=== PATIENT | male | born 1960 | race Caucasian/White ===

== ENCOUNTER 2020-11-03 03:43 | Inpatient (IN) | payer MEDICAID, OTHER ==
[~2020-11-03] VITALS: Ht 185.4 cm; Wt 150.1 kg
[2020-11-03 04:34] LABS: Urine Bacteria NONE SEEN /hpf (None Seen); Urine Blood 2+ /uL (Negative); Urine Specific Gravity 1.012 (1.001-1.035); Urine WBC 3 /hpf (0 - 3)
[2020-11-03] MEDS ORDERED: KETOROLAC TROMETH 60MG/2ML VIAL IM ONE (05:00)
[2020-11-03] MEDS ORDERED: ONDANSETRON HCL 4 MG/2 ML VIAL IV ONE (05:15)
[2020-11-03] MEDS ORDERED: MORPHINE SULFATE INJECTION 2 MG/ML SYRG IV ONE (05:15)
[2020-11-03] MEDS ORDERED: FUROSEMIDE 40 MG/4 ML VIAL IV ONE (06:30)
[2020-11-03 06:56] LABS: Alanine Aminotransferase 45 U/L (16-61); Albumin 1.9 g/dL (3.4-5.0); Aspartate Aminotransferase 63 U/L (15-37); BUN/Creatinine Ratio 10.5; Blood Urea Nitrogen 8 mg/dL (7-18); Calcium 8.8 mg/dL (8.5-10.1); Carbon Dioxide 21 mmol/L (21-32); GFR African American 135 mL/min; GFR Non-African American 112 mL/min; Glucose 105 mg/dL (74-106)
[2020-11-03 07:00] LABS: Alkaline Phosphatase 156 U/L (45-117); Bilirubin, Total 1.6 mg/dL (0.2-1.0); Total Protein 7.3 g/dL (6.4-8.2)
[2020-11-03 07:06] LABS: Sodium 136 mmol/L (136-145)
[2020-11-03 07:07] LABS: Anion Gap 6 (5-15); Chloride 109 mmol/L (98-107); Potassium 4.9 mmol/L (3.5-5.1)
[2020-11-03 08:41] LABS: Basophils # (auto) 0 10 ^3/uL (0-0.2); Basophils % (auto) 0.3 % (0.0-2.0); Eosinophils # (auto) 0.2 10 ^3/uL (0-0.8); Eosinophils % (auto) 4.8 % (0.0-7.0); Hematocrit 39.7 % (41.0-53.0); Hemoglobin 13.4 g/dL (13.5-17.5); Lymphocytes # (auto) 0.9 10 ^3/uL (0.4-5.4); Lymphocytes % (auto) 19.3 % (10.0-50.0); Mean Corpuscular Hemoglobin 33.1 pg (28.0-32.0); Mean Corpuscular Hgb Conc. 33.8 g/dL (32.0-36.0); Mean Corpuscular Volume 97.8 fL (80.0-100.0); Monocytes # (auto) 0.6 10 ^3/uL (0-1.3); Monocytes % (auto) 13.9 % (0.0-12.0); Neutrophils # (auto) 2.9 10 ^3/uL (1.6-8.6); Neutrophils % (auto) 61.7 % (37.0-80.0); Nucleated Red Blood Cells % 0.2 %; Red Blood Cells 4.06 10^6/uL (4.5-5.90); Red Cell Distribution Width 15.3 % (11.8-14.3); White Blood Cell 4.6 10^3/uL (4.4-10.8)
[2020-11-03] MEDS ORDERED: ACETAMINOPHEN 500 MG TAB PO PRN (13:30)
[2020-11-03] MEDS ORDERED: ONDANSETRON HCL 4 MG/2 ML VIAL IV PRN (13:30)
[2020-11-03] MEDS ORDERED: MORPHINE SULFATE INJECTION 2 MG/ML SYRG IV PRN (13:30)
[2020-11-03] MEDS ORDERED: hydrALAZINE HCL 20 MG/ML VL IV PRN (13:30)
[2020-11-03] MEDS ORDERED: NITROGLYCERIN 0.4 MG SL TAB SL PRN (13:30)
[2020-11-03] MEDS: CLINDAMYCIN 300MG IV 50 ML IV SCH ×2 (16:00→22:00)
[2020-11-03] MEDS: MORPHINE SULFATE INJECTION 2 MG/ML SYRG IV PRN (18:51)
[2020-11-03] MEDS: ATORVASTATIN 20 MG TAB PO SCH (22:50)
[2020-11-03] MEDS: METOPROLOL TARTRATE 25 MG TAB PO SCH (22:50)
[2020-11-03] MEDS: ALBUMIN 25% 50 ML IV SCH (23:00)
[2020-11-04 03:00] VITALS: BP 109/67
[2020-11-04] MEDS ORDERED: POM (03:35)
[2020-11-04 05:00] VITALS: BP 109/67
[2020-11-04] MEDS: CLINDAMYCIN 300MG IV 50 ML IV SCH ×3 (05:16→22:21)
[2020-11-04] MEDS: ALBUMIN 25% 50 ML IV SCH ×2 (06:42→14:15)
[2020-11-04] MEDS: HYDROcodone-ACET 5/325MG TAB PO PRN ×2 (08:37→23:06)
[2020-11-04 09:00] VITALS: BP 134/62
[2020-11-04] MEDS: [UNRECOGNIZED DRUG - OTHER] PO SCH (10:50)
[2020-11-04] MEDS: METOPROLOL TARTRATE 25 MG TAB PO SCH ×2 (10:50→22:21)
[2020-11-04] MEDS: FUROSEMIDE 20 MG/2 ML VIAL IV SCH (10:50)
[2020-11-04] MEDS: ASPirin-EC 81 mg tab PO SCH (10:50)
[2020-11-04] MEDS: LISINOPRIL 10 MG TAB PO SCH (10:50)
[2020-11-04 10:53] LABS: Basophils # (auto) 0 10 ^3/uL (0-0.2); Basophils % (auto) 0.4 % (0.0-2.0); Eosinophils # (auto) 0.2 10 ^3/uL (0-0.8); Eosinophils % (auto) 5.4 % (0.0-7.0); Hematocrit 37.8 % (41.0-53.0); Hemoglobin 12.7 g/dL (13.5-17.5); Lymphocytes # (auto) 0.8 10 ^3/uL (0.4-5.4); Lymphocytes % (auto) 24.1 % (10.0-50.0); Mean Corpuscular Hemoglobin 33.2 pg (28.0-32.0); Mean Corpuscular Hgb Conc. 33.6 g/dL (32.0-36.0); Mean Corpuscular Volume 98.9 fL (80.0-100.0); Monocytes # (auto) 0.5 10 ^3/uL (0-1.3); Monocytes % (auto) 15.9 % (0.0-12.0); Neutrophils # (auto) 1.8 10 ^3/uL (1.6-8.6); Neutrophils % (auto) 54.2 % (37.0-80.0); Nucleated Red Blood Cells % 0.1 %; Red Blood Cells 3.82 10^6/uL (4.5-5.90); Red Cell Distribution Width 15.5 % (11.8-14.3); White Blood Cell 3.4 10^3/uL (4.4-10.8)
[2020-11-04 11:11] LABS: Calcium 8.6 mg/dL (8.5-10.1); Potassium 4.6 mmol/L (3.5-5.1)
[2020-11-04 11:12] LABS: BUN/Creatinine Ratio 15.5
[2020-11-04 13:00] VITALS: BP 101/56
[2020-11-04 17:00] VITALS: BP 123/64
[2020-11-04] MEDS: MORPHINE SULFATE INJECTION 2 MG/ML SYRG IV PRN (20:30)
[2020-11-04 22:00] VITALS: BP 127/52
[2020-11-04] MEDS: ATORVASTATIN 20 MG TAB PO SCH (22:20)
[2020-11-04] MEDS: LACTULOSE 20Gm/30ML SOLN PO SCH (23:03)
[2020-11-05] MEDS: HYDROcodone-ACET 5/325MG TAB PO PRN ×2 (04:33→11:04)
[2020-11-05 05:00] VITALS: BP 99/42
[2020-11-05] MEDS: CLINDAMYCIN 300MG IV 50 ML IV SCH (05:03)
[2020-11-05] MEDS: LACTULOSE 20Gm/30ML SOLN PO SCH ×2 (05:03→12:00)
[2020-11-05 09:04] VITALS: BP 98/54
[2020-11-05] MEDS: [UNRECOGNIZED DRUG - OTHER] PO SCH (10:00)
[2020-11-05] MEDS: METOPROLOL TARTRATE 25 MG TAB PO SCH (10:00)
[2020-11-05] MEDS: LISINOPRIL 10 MG TAB PO SCH (10:00)
[2020-11-05] MEDS: ASPirin-EC 81 mg tab PO SCH (11:04)
[2020-11-05] MEDS: FUROSEMIDE 20 MG/2 ML VIAL IV SCH (11:04)
[2020-11-05 12:11] VITALS: BP 98/54
== END 2020-11-05 13:36 | disposition home or self-care (01) ==
LOC: ER 03:43 → TELE 13:25 → TELE-WESTW 11-04 03:00
PROVIDERS: ADMIT Nurse Practitioner Acute Care; ATTEND Family Medicine
PROC: 05HC33Z Insertion of Infusion Device into Left Basilic Vein, Percutaneous Approach (ICD-10-PCS; principal; 2020-11-03)
PROC: B54NZZA Ultrasonography of Left Upper Extremity Veins, Guidance (ICD-10-PCS; 2020-11-03)
DX: K74.60 Unspecified cirrhosis of liver (principal); K72.10 Chronic hepatic failure without coma; L03.115 Cellulitis of right lower limb; E72.20 Disorder of urea cycle metabolism, unspecified; R18.8 Other ascites; E88.09 Other disorders of plasma-protein metabolism, not elsewhere classified; L03.116 Cellulitis of left lower limb; B19.20 Unspecified viral hepatitis C without hepatic coma; E66.01 Morbid (severe) obesity due to excess calories; N39.0 Urinary tract infection, site not specified; I10 Essential (primary) hypertension; F17.210 Nicotine dependence, cigarettes, uncomplicated; Z20.822 Contact with and (suspected) exposure to COVID-19; R31.29 Other microscopic hematuria; Z68.41 Body mass index [BMI] 40.0-44.9, adult; Z88.0 Allergy status to penicillin
CPT/HCPCS: 36415; 71045; 76700; 80048; 80053; 81001; 82140; 83880; 84484; 85025; 85379; 86141; 87086; 87426; 93005; 93306; 93970; 96374; 96375; 96376; G0378; J1885; J2405; J3490

== ENCOUNTER 2021-09-19 12:59 | Inpatient (IN) | payer MEDICAID ==
[~2021-09-19] VITALS: Ht 185.4 cm; Wt 137.0 kg
[~2021-09-19 12:59] MED LIST: POM
[2021-09-19] MEDS ORDERED: SODIUM CHLORIDE 0.9% 1,000 ML IV ONE ×2 (13:30)
[2021-09-19] MEDS ORDERED: cefTRIAXone 1GM/50ML D5W 50 ML IV ONE (13:30)
[2021-09-19] MEDS ORDERED: AZITHROMYCIN 500MG/ 250ML 250 ML IV ONE (13:30)
[2021-09-19 13:47] LABS: Basophils # (auto) 0 10 ^3/uL (0-0.2); Eosinophils # (auto) 0 10 ^3/uL (0-0.8); Hemoglobin 13.4 g/dL (13.5-17.5); Lymphocytes # (auto) 0.2 10 ^3/uL (0.4-5.4); Monocytes # (auto) 0.4 10 ^3/uL (0-1.3)
[2021-09-19 13:49] LABS: Basophils % (auto) 0.1 % (0.0-2.0); Eosinophils % (auto) 0.7 % (0.0-7.0); Hematocrit 39.7 % (41.0-53.0); Lymphocytes % (auto) 2.7 % (10.0-50.0); Mean Corpuscular Hemoglobin 32.7 pg (28.0-32.0); Mean Corpuscular Hgb Conc. 33.9 g/dL (32.0-36.0); Mean Corpuscular Volume 96.4 fL (80.0-100.0); Monocytes % (auto) 7.5 % (0.0-12.0); Nucleated Red Blood Cells % 0.2 %; Red Blood Cells 4.12 10^6/uL (4.5-5.90); Red Cell Distribution Width 16.1 % (11.8-14.3); White Blood Cell 5.7 10^3/uL (4.4-10.8)
[2021-09-19] MEDS ORDERED: ACETAMINOPHEN 325 MG TAB PO ONE (14:00)
[2021-09-19 14:25] LABS: BUN/Creatinine Ratio 21.1; Potassium 4.2 mmol/L (3.5-5.1)
[2021-09-19 14:28] LABS: Lactic Acid w/Reflex 4.7 mmol/L (0.4-2.0)
[2021-09-19 14:37] LABS: Bilirubin, Total 4.7 mg/dL (0.2-1.0); Total Protein 5.9 g/dL (6.4-8.2)
[2021-09-19] MEDS ORDERED: ENOXAPARIN SOD 120 MG/0.8 ML SYRINGE SC ONE (15:15)
[2021-09-19] MEDS ORDERED: LIDOCAINE VISCOUS 2% 15ML UD MT ONE (15:15)
[2021-09-19] MEDS ORDERED: LIDOCAINE HCL 2% TOP JELLY 5ML TOP ONE (15:45)
[2021-09-19 16:36] LABS: Urine Amorphous Crystal FEW /hpf (None Seen); Urine Bacteria NONE SEEN /hpf (None Seen); Urine Blood 2+ /uL (Negative); Urine Specific Gravity 1.023 (1.001-1.035); Urine WBC 13 /hpf (0 - 3)
[2021-09-19] MEDS ORDERED: ALBUMIN 25% 100 ML IV ONE (17:15)
[2021-09-19] MEDS ORDERED: methylPREDNISolone SOD SUCC 125 MG/2 ML VL IV ONE (17:15)
[2021-09-19] MEDS: NOREPINEPHRINE 8 MG/250ML KIT 250 ML IV SCH (17:15)
[2021-09-19] MEDS ORDERED: FUROSEMIDE 40 MG/4 ML VIAL IV ONE (17:15)
[2021-09-19] MEDS ORDERED: ALBUTEROL SULF 2.5 MG/0.5ML(0.5%) NEB SOLN NEB PRN (17:30)
[2021-09-19] MEDS ORDERED: ACETAMINOPHEN 325 MG TAB PO PRN (17:30)
[2021-09-19] MEDS ORDERED: NITROGLYCERIN 0.4 MG SL TAB SL PRN (17:30)
[2021-09-19] MEDS ORDERED: MORPHINE SULFATE INJ 2 MG/ml SYRG IV PRN (17:30)
[2021-09-19 18:32] LABS: Cholesterol 72 mg/dL (< 200)
[2021-09-19 18:35] LABS: HDL Cholesterol 12 mg/dL (40-59); LDL Cholesterol 26 mg/dL (< 100); Triglycerides 148 mg/dL (< 150)
[2021-09-19] MEDS ORDERED: IOHEXOL 350 MG/ML 100ML IJ ONE (20:06)
[2021-09-19] MEDS: HYDROcodone-ACET 5/325MG TAB PO PRN (20:56)
[2021-09-19] MEDS ORDERED: VANCOMYCIN PER PHARMACY 0 MG IV SCH (22:45)
[2021-09-19] MEDS ORDERED: VANCOMYCIN 1GM/250ML 250 ML IV ONE (23:00)
[2021-09-20] VITALS (37 sets, daily range): BP systolic 83–138; BP diastolic 40–94
[2021-09-20] MEDS: HYDROcodone-ACET 5/325MG TAB PO PRN ×3 (03:18→20:58)
[2021-09-20] MEDS ORDERED: dilTIAZem HCL 50 MG/10 ML VIAL IV ONE (05:43)
[2021-09-20] MEDS ORDERED: dilTIAZem 25 MG/5 ML VIAL IV ONE ×2 (05:45→13:00)
[2021-09-20 06:06] LABS: Hemoglobin 13.1 g/dL (13.5-17.5); Mean Corpuscular Hemoglobin 33.2 pg (28.0-32.0); Red Blood Cells 3.94 10^6/uL (4.5-5.90); White Blood Cell 4.8 10^3/uL (4.4-10.8)
[2021-09-20 06:09] LABS: Hematocrit 38.1 % (41.0-53.0); Mean Corpuscular Hgb Conc. 34.3 g/dL (32.0-36.0); Mean Corpuscular Volume 96.6 fL (80.0-100.0); Red Cell Distribution Width 16.1 % (11.8-14.3)
[2021-09-20 06:26] LABS: Potassium 4.5 mmol/L (3.5-5.1)
[2021-09-20 06:31] LABS: Basophils % (manual) 0 (0.0-2.0); Blast Cells 0; Metamyelocytes % 0; Myelocytes % 0; Promyelocytes % 0; Reactive Lymphocytes 0
[2021-09-20 06:39] LABS: Albumin 2.1 g/dL (3.4-5.0); BUN/Creatinine Ratio 22.5; Calcium 8.3 mg/dL (8.5-10.1); Total Protein 5.9 g/dL (6.4-8.2)
[2021-09-20 07:19] LABS: Band Neutrophils % (manual) 73; Eosinophils % (manual) 1 (0-7); Lymphocytes % (manual) 8 (10.0-50.0); Monocytes % (manual) 13 (0-12)
[2021-09-20] MEDS: cefTRIAXone 1GM/50ML D5W 50 ML IV SCH (09:10)
[2021-09-20] MEDS: NICOTINE 7MG/24HR TOPICAL PATCH TD SCH (10:00)
[2021-09-20] MEDS: AZITHROMYCIN 500MG/ 250ML 250 ML IV SCH (10:47)
[2021-09-20] MEDS: HYDROCORTISONE SOD SUCC 100 MG/2ML INJ VIAL IV SCH ×2 (15:25→20:58)
[2021-09-20] MEDS: VANCOMYCIN 1GM/250ML 250 ML IV SCH (15:26)
[2021-09-20] MEDS: NOREPINEPHRINE 8 MG/250ML KIT 250 ML IV SCH (19:00)
[2021-09-20] MEDS: CARVEDILOL 3.125 MG TAB PO SCH (20:59)
[2021-09-21] VITALS (29 sets, daily range): BP systolic 71–126; BP diastolic 42–82
[2021-09-21 04:40] LABS: BUN/Creatinine Ratio 33.6; Calcium 8.2 mg/dL (8.5-10.1); Potassium 5.1 mmol/L (3.5-5.1)
[2021-09-21 04:43] LABS: Hematocrit 41.5 % (41.0-53.0); Hemoglobin 13.8 g/dL (13.5-17.5); Mean Corpuscular Hemoglobin 32.5 pg (28.0-32.0); Mean Corpuscular Hgb Conc. 33.3 g/dL (32.0-36.0); Mean Corpuscular Volume 97.8 fL (80.0-100.0); Red Blood Cells 4.25 10^6/uL (4.5-5.90); Red Cell Distribution Width 16.2 % (11.8-14.3); White Blood Cell 4.7 10^3/uL (4.4-10.8)
[2021-09-21] MEDS: HYDROCORTISONE SOD SUCC 100 MG/2ML INJ VIAL IV SCH ×3 (05:39→22:26)
[2021-09-21] MEDS: VANCOMYCIN 1GM/250ML 250 ML IV SCH ×2 (06:09→23:00)
[2021-09-21 06:34] LABS: Band Neutrophils % (manual) 22; Basophils % (manual) 0 (0.0-2.0); Blast Cells 0; Eosinophils % (manual) 0 (0-7); Lymphocytes % (manual) 15 (10.0-50.0); Metamyelocytes % 0; Monocytes % (manual) 12 (0-12); Myelocytes % 0; Promyelocytes % 0; Reactive Lymphocytes 0
[2021-09-21] MEDS: NICOTINE 7MG/24HR TOPICAL PATCH TD SCH (10:00)
[2021-09-21] MEDS: AZITHROMYCIN 500MG/ 250ML 250 ML IV SCH (10:13)
[2021-09-21] MEDS: cefTRIAXone 1GM/50ML D5W 50 ML IV SCH (10:14)
[2021-09-21] MEDS: CARVEDILOL 3.125 MG TAB PO SCH ×2 (10:14→22:00)
[2021-09-21] MEDS: HYDROcodone-ACET 5/325MG TAB PO PRN ×2 (11:19→19:34)
[2021-09-21] MEDS: NOREPINEPHRINE 8 MG/250ML KIT 250 ML IV SCH (17:15)
[2021-09-21] MEDS: FUROSEMIDE 40 MG/4 ML VIAL IV SCH (17:49)
[2021-09-22] VITALS (21 sets, daily range): BP systolic 89–158; BP diastolic 42–83
[2021-09-22] MEDS: HYDROcodone-ACET 5/325MG TAB PO PRN ×4 (02:48→23:21)
[2021-09-22] MEDS: FUROSEMIDE 40 MG/4 ML VIAL IV SCH ×2 (06:21→18:13)
[2021-09-22] MEDS: HYDROCORTISONE SOD SUCC 100 MG/2ML INJ VIAL IV SCH ×3 (06:21→21:33)
[2021-09-22] MEDS: cefTRIAXone 1GM/50ML D5W 50 ML IV SCH (08:37)
[2021-09-22] MEDS: CARVEDILOL 3.125 MG TAB PO SCH ×2 (08:55→21:34)
[2021-09-22] MEDS: AZITHROMYCIN 500MG/ 250ML 250 ML IV SCH (09:37)
[2021-09-22] MEDS: VANCOMYCIN 1GM/250ML 250 ML IV SCH ×2 (12:00→23:18)
[2021-09-23 04:56] VITALS: BP 104/58
[2021-09-23] MEDS: HYDROCORTISONE SOD SUCC 100 MG/2ML INJ VIAL IV SCH ×3 (05:52→21:16)
[2021-09-23] MEDS: FUROSEMIDE 40 MG/4 ML VIAL IV SCH ×2 (05:52→18:00)
[2021-09-23] MEDS: HYDROcodone-ACET 5/325MG TAB PO PRN ×3 (05:53→21:17)
[2021-09-23] MEDS: cefTRIAXone 1GM/50ML D5W 50 ML IV SCH (08:33)
[2021-09-23 09:00] VITALS: BP 101/65
[2021-09-23] MEDS: AZITHROMYCIN 500MG/ 250ML 250 ML IV SCH (09:31)
[2021-09-23 09:32] VITALS: BP 101/65
[2021-09-23] MEDS: CARVEDILOL 3.125 MG TAB PO SCH ×2 (09:34→21:20)
[2021-09-23 13:00] VITALS: BP 95/53
[2021-09-23] MEDS: VANCOMYCIN 1GM/250ML 250 ML IV SCH ×2 (14:02→14:12)
[2021-09-23 17:23] VITALS: BP 95/42
[2021-09-23 22:00] VITALS: BP 104/62
[2021-09-24] MEDS: VANCOMYCIN 1GM/250ML 250 ML IV SCH ×3 (00:27→20:20)
[2021-09-24 05:00] VITALS: BP 108/61
[2021-09-24 05:18] LABS: Hematocrit 44.9 % (41.0-53.0); Hemoglobin 14.8 g/dL (13.5-17.5); Mean Corpuscular Hemoglobin 31.6 pg (28.0-32.0); Mean Corpuscular Hgb Conc. 32.9 g/dL (32.0-36.0); Mean Corpuscular Volume 96.1 fL (80.0-100.0); Red Blood Cells 4.67 10^6/uL (4.5-5.90); Red Cell Distribution Width 15.4 % (11.8-14.3); White Blood Cell 19.1 10^3/uL (4.4-10.8)
[2021-09-24 05:29] LABS: Basophils % (manual) 0 (0.0-2.0); Blast Cells 0; Calcium 8.2 mg/dL (8.5-10.1); Myelocytes % 0; Potassium 4.6 mmol/L (3.5-5.1); Promyelocytes % 0; Reactive Lymphocytes 0
[2021-09-24] MEDS: FUROSEMIDE 40 MG/4 ML VIAL IV SCH ×2 (06:43→17:40)
[2021-09-24] MEDS: HYDROCORTISONE SOD SUCC 100 MG/2ML INJ VIAL IV SCH ×3 (06:43→21:43)
[2021-09-24] MEDS: HYDROcodone-ACET 5/325MG TAB PO PRN ×4 (06:44→20:21)
[2021-09-24] MEDS: cefTRIAXone 1GM/50ML D5W 50 ML IV SCH (08:20)
[2021-09-24 09:00] VITALS: BP 113/59
[2021-09-24] MEDS: AMIODARONE HCL 200 MG TAB PO SCH (10:00)
[2021-09-24] MEDS: CARVEDILOL 3.125 MG TAB PO SCH ×2 (10:00→21:44)
[2021-09-24] MEDS: AZITHROMYCIN 500MG/ 250ML 250 ML IV SCH (12:04)
[2021-09-24 12:13] LABS: Band Neutrophils % (manual) 12; Lymphocytes % (manual) 7 (10.0-50.0); Monocytes % (manual) 8 (0-12)
[2021-09-24 13:00] VITALS: BP 121/65
[2021-09-24] MEDS ORDERED: IOHEXOL 300 MG/ML 100ML BOTTLE IJ ONE (17:12)
[2021-09-24 17:24] VITALS: BP 128/72
[2021-09-24 22:00] VITALS: BP 113/66
[2021-09-25] MEDS: HYDROcodone-ACET 5/325MG TAB PO PRN ×2 (02:13→08:31)
[2021-09-25] MEDS: VANCOMYCIN 1GM/250ML 250 ML IV SCH ×2 (05:49→17:18)
[2021-09-25] MEDS: HYDROCORTISONE SOD SUCC 100 MG/2ML INJ VIAL IV SCH ×3 (05:49→22:39)
[2021-09-25] MEDS: FUROSEMIDE 40 MG/4 ML VIAL IV SCH ×2 (05:50→18:49)
[2021-09-25 06:01] VITALS: BP 139/79
[2021-09-25 07:35] LABS: Albumin 1.6 g/dL (3.4-5.0); BUN/Creatinine Ratio 31.7; Calcium 7.8 mg/dL (8.5-10.1); Phosphorus 2.7 mg/dL (2.5-4.90); Potassium 4.3 mmol/L (3.5-5.1)
[2021-09-25] MEDS: cefTRIAXone 1GM/50ML D5W 50 ML IV SCH (08:24)
[2021-09-25] MEDS: AMIODARONE HCL 200 MG TAB PO SCH (08:38)
[2021-09-25] MEDS: CARVEDILOL 3.125 MG TAB PO SCH ×2 (08:39→22:44)
[2021-09-25 09:00] VITALS: BP 128/64
[2021-09-25] MEDS ORDERED: DEXTROSE (50%) 50ML SYRG IV PRN (10:00)
[2021-09-25] MEDS: InsuLIN REG 1unit/0.01ml Soln (100units/ml) SC SCH ×3 (10:28→23:11)
[2021-09-25] MEDS: AZITHROMYCIN 500MG/ 250ML 250 ML IV SCH (10:29)
[2021-09-25] MEDS ORDERED: PENICILLIN G POTASSIUM 1,000 UNITS in SODIUM CHL 0.9% 0.1 ML ID ONE ×4 (11:00)
[2021-09-25] MEDS ORDERED: PENICILLOYL POLYLYSINE 0.25 ML INJ SCRATCHTES ONE (11:00)
[2021-09-25] MEDS ORDERED: PENICILLIN G POTASSIUM 1,000 UNITS in SODIUM CHL 0.9% 0.1 ML SCRATCHTES ONE (11:00)
[2021-09-25] MEDS ORDERED: SODIUM CHLOR 0.9% PF (SALINE LOCK) 10ML VIAL/SYR ID ONE (11:00)
[2021-09-25] MEDS ORDERED: SODIUM CHLOR 0.9% PF (SALINE LOCK) 10ML VIAL/SYR SCRATCHTES ONE (11:00)
[2021-09-25] MEDS ORDERED: HISTAMINE PHOS 1mg/ml 5ML SCRATCH TEST SCRATCHTES ONE (11:00)
[2021-09-25] MEDS ORDERED: PENICILLOYL POLYLYSINE 0.25 ML INJ ID ONE ×2 (11:00)
[2021-09-25] MEDS ORDERED: InsuLIN REG 1unit/0.01ml Soln (100units/ml) SC SCH ×2 (11:30→22:00)
[2021-09-25 12:15] LABS: Hematocrit 44.7 % (41.0-53.0); Hemoglobin 14.5 g/dL (13.5-17.5); Mean Corpuscular Hemoglobin 31.6 pg (28.0-32.0); Mean Corpuscular Hgb Conc. 32.5 g/dL (32.0-36.0); Mean Corpuscular Volume 97.5 fL (80.0-100.0); Red Blood Cells 4.59 10^6/uL (4.5-5.90); Red Cell Distribution Width 16.1 % (11.8-14.3); White Blood Cell 14.4 10^3/uL (4.4-10.8)
[2021-09-25 12:17] LABS: Blast Cells 0; Metamyelocytes % 0; Myelocytes % 0; Promyelocytes % 0; Reactive Lymphocytes 0
[2021-09-25 12:44] LABS: Band Neutrophils % (manual) 1; Basophils % (manual) 1 (0.0-2.0); Eosinophils % (manual) 1 (0-7); Lymphocytes % (manual) 3 (10.0-50.0); Monocytes % (manual) 9 (0-12)
[2021-09-25 13:00] VITALS: BP 114/65
[2021-09-25] MEDS: HYDROcodone-ACET 10/325MG TAB PO PRN ×2 (15:02→22:46)
[2021-09-25 17:00] VITALS: BP 135/72
[2021-09-25] MEDS: ACCU-CHEK COMFORT CURVE STRIP VI SCH ×3 (17:13→22:00)
[2021-09-25 22:00] VITALS: BP 135/76
[2021-09-26] MEDS: VANCOMYCIN 1GM/250ML 250 ML IV SCH ×3 (02:33→21:49)
[2021-09-26 05:00] VITALS: BP 134/75
[2021-09-26] MEDS: HYDROCORTISONE SOD SUCC 100 MG/2ML INJ VIAL IV SCH ×3 (05:10→21:44)
[2021-09-26] MEDS: HYDROcodone-ACET 10/325MG TAB PO PRN ×3 (05:10→18:09)
[2021-09-26] MEDS: FUROSEMIDE 40 MG/4 ML VIAL IV SCH ×2 (05:10→18:06)
[2021-09-26] MEDS: InsuLIN REG 1unit/0.01ml Soln (100units/ml) SC SCH ×4 (06:15→22:07)
[2021-09-26] MEDS: ACCU-CHEK COMFORT CURVE STRIP VI SCH ×4 (06:16→22:11)
[2021-09-26 06:26] LABS: Basophils # (auto) 0 10 ^3/uL (0-0.2); Basophils % (auto) 0.2 % (0.0-2.0); Eosinophils # (auto) 0 10 ^3/uL (0-0.8); Eosinophils % (auto) 0.1 % (0.0-7.0); Hematocrit 41.8 % (41.0-53.0); Hemoglobin 14.1 g/dL (13.5-17.5); Lymphocytes # (auto) 0.7 10 ^3/uL (0.4-5.4); Mean Corpuscular Hemoglobin 33.5 pg (28.0-32.0); Mean Corpuscular Hgb Conc. 33.8 g/dL (32.0-36.0); Monocytes # (auto) 0.9 10 ^3/uL (0-1.3); Monocytes % (auto) 6.2 % (0.0-12.0); Neutrophils # (auto) 12.8 10 ^3/uL (1.6-8.6); Neutrophils % (auto) 88.5 % (37.0-80.0); Nucleated Red Blood Cells % 0.1 %; Red Blood Cells 4.22 10^6/uL (4.5-5.90); Red Cell Distribution Width 15.6 % (11.8-14.3); White Blood Cell 14.4 10^3/uL (4.4-10.8)
[2021-09-26 06:41] LABS: Calcium 7.9 mg/dL (8.5-10.1); Potassium 4.1 mmol/L (3.5-5.1)
[2021-09-26 06:46] LABS: BUN/Creatinine Ratio 33.3; Magnesium 2.4 mg/dL (1.6-2.6)
[2021-09-26 09:00] VITALS: BP 134/92
[2021-09-26] MEDS: CARVEDILOL 3.125 MG TAB PO SCH ×2 (10:01→21:55)
[2021-09-26] MEDS: AMIODARONE HCL 200 MG TAB PO SCH (10:01)
[2021-09-26 13:00] VITALS: BP 120/60
[2021-09-26 15:48] LABS: INR 1.3 (0.9-1.15); Partial Thromboplastin Time 29.7 sec (24.6-33.4)
[2021-09-26 17:00] VITALS: BP 129/99
[2021-09-26 22:00] VITALS: BP 123/87
[2021-09-26] MEDS: INSULIN LANTUS (GLARGINE) 1 /0.01ml (100units/ml) SC SCH (22:09)
[2021-09-27] MEDS: HYDROcodone-ACET 10/325MG TAB PO PRN ×3 (00:19→16:00)
[2021-09-27 05:00] VITALS: BP 140/75
[2021-09-27] MEDS: FUROSEMIDE 40 MG/4 ML VIAL IV SCH ×2 (05:56→16:50)
[2021-09-27] MEDS: HYDROCORTISONE SOD SUCC 100 MG/2ML INJ VIAL IV SCH ×2 (06:00→16:51)
[2021-09-27] MEDS: InsuLIN REG 1unit/0.01ml Soln (100units/ml) SC SCH ×4 (06:15→22:21)
[2021-09-27] MEDS: INSULIN LANTUS (GLARGINE) 1 /0.01ml (100units/ml) SC SCH ×2 (06:16→22:21)
[2021-09-27] MEDS: ACCU-CHEK COMFORT CURVE STRIP VI SCH ×4 (06:16→22:21)
[2021-09-27] MEDS: VANCOMYCIN 1GM/250ML 250 ML IV SCH ×2 (07:50→16:51)
[2021-09-27] MEDS: CARVEDILOL 3.125 MG TAB PO SCH (08:44)
[2021-09-27] MEDS: AMIODARONE HCL 200 MG TAB PO SCH (08:44)
[2021-09-27 08:48] VITALS: BP 128/77
[2021-09-27] MEDS ORDERED: INSULIN LANTUS (GLARGINE) 1 /0.01ml (100units/ml) SC ONE (11:30)
[2021-09-27 13:08] VITALS: BP 126/67
[2021-09-27 22:00] VITALS: BP 129/70
[2021-09-28] MEDS: HYDROcodone-ACET 5/325MG TAB PO PRN (01:08)
[2021-09-28] MEDS: VANCOMYCIN 1GM/250ML 250 ML IV SCH ×2 (03:57→13:56)
[2021-09-28 05:00] VITALS: BP 113/77
[2021-09-28] MEDS: HYDROCORTISONE SOD SUCC 100 MG/2ML INJ VIAL IV SCH (05:45)
[2021-09-28] MEDS: FUROSEMIDE 40 MG/4 ML VIAL IV SCH ×2 (05:47→17:20)
[2021-09-28] MEDS: ACCU-CHEK COMFORT CURVE STRIP VI SCH ×4 (06:36→22:11)
[2021-09-28] MEDS: InsuLIN REG 1unit/0.01ml Soln (100units/ml) SC SCH ×4 (06:39→22:10)
[2021-09-28 09:00] VITALS: BP 138/87
[2021-09-28] MEDS: AMIODARONE HCL 200 MG TAB PO SCH (09:49)
[2021-09-28] MEDS: HYDROcodone-ACET 10/325MG TAB PO PRN ×2 (09:50→17:21)
[2021-09-28] MEDS: INSULIN LANTUS (GLARGINE) 1 /0.01ml (100units/ml) SC SCH ×2 (10:52→22:11)
[2021-09-28 13:00] VITALS: BP 134/70
[2021-09-28 16:47] VITALS: BP 131/80
[2021-09-28 22:00] VITALS: BP 108/60
[2021-09-28] MEDS: SENNA 8.6 MG TAB PO SCH (22:09)
[2021-09-29] MEDS: VANCOMYCIN 1GM/250ML 250 ML IV SCH ×3 (00:37→20:50)
[2021-09-29] MEDS: HYDROcodone-ACET 10/325MG TAB PO PRN ×3 (00:42→16:50)
[2021-09-29 04:39] VITALS: BP 144/69
[2021-09-29 05:15] LABS: Basophils # (auto) 0.1 10 ^3/uL (0-0.2); Basophils % (auto) 0.3 % (0.0-2.0); Eosinophils # (auto) 0.2 10 ^3/uL (0-0.8); Eosinophils % (auto) 1.4 % (0.0-7.0); Hematocrit 47.9 % (41.0-53.0); Lymphocytes # (auto) 1.4 10 ^3/uL (0.4-5.4); Lymphocytes % (auto) 8.2 % (10.0-50.0); Mean Corpuscular Hemoglobin 32.4 pg (28.0-32.0); Mean Corpuscular Hgb Conc. 33.4 g/dL (32.0-36.0); Mean Corpuscular Volume 96.8 fL (80.0-100.0); Monocytes # (auto) 1.5 10 ^3/uL (0-1.3); Monocytes % (auto) 9.1 % (0.0-12.0); Neutrophils # (auto) 13.5 10 ^3/uL (1.6-8.6); Red Blood Cells 4.95 10^6/uL (4.5-5.90); Red Cell Distribution Width 15.8 % (11.8-14.3); White Blood Cell 16.7 10^3/uL (4.4-10.8)
[2021-09-29] MEDS: FUROSEMIDE 40 MG/4 ML VIAL IV SCH ×2 (05:26→16:38)
[2021-09-29 05:34] LABS: BUN/Creatinine Ratio 33.7; Calcium 8.2 mg/dL (8.5-10.1); Potassium 3.3 mmol/L (3.5-5.1)
[2021-09-29] MEDS: ACCU-CHEK COMFORT CURVE STRIP VI SCH ×4 (06:50→22:02)
[2021-09-29] MEDS: InsuLIN REG 1unit/0.01ml Soln (100units/ml) SC SCH ×4 (06:50→22:04)
[2021-09-29 09:23] VITALS: BP 117/63
[2021-09-29] MEDS: SENNA 8.6 MG TAB PO SCH ×2 (09:27→22:02)
[2021-09-29] MEDS: AMIODARONE HCL 200 MG TAB PO SCH (09:27)
[2021-09-29] MEDS: HYDROCORTISONE SOD SUCC 100 MG/2ML INJ VIAL IV SCH (09:27)
[2021-09-29] MEDS: HYDROcodone-ACET 5/325MG TAB PO PRN ×2 (11:11→22:03)
[2021-09-29] MEDS: INSULIN LANTUS (GLARGINE) 1 /0.01ml (100units/ml) SC SCH ×2 (11:17→22:05)
[2021-09-29 12:18] VITALS: BP 141/72
[2021-09-29 17:11] VITALS: BP 126/69
[2021-09-29 22:00] VITALS: BP 119/60
[2021-09-30] MEDS: HYDROcodone-ACET 10/325MG TAB PO PRN ×4 (01:39→21:29)
[2021-09-30 05:00] VITALS: BP 119/67
[2021-09-30] MEDS: VANCOMYCIN 1GM/250ML 250 ML IV SCH ×2 (05:52→18:12)
[2021-09-30] MEDS: FUROSEMIDE 40 MG/4 ML VIAL IV SCH (05:52)
[2021-09-30] MEDS: ACCU-CHEK COMFORT CURVE STRIP VI SCH ×4 (06:14→22:08)
[2021-09-30] MEDS: InsuLIN REG 1unit/0.01ml Soln (100units/ml) SC SCH ×4 (06:16→21:47)
[2021-09-30 08:20] VITALS: BP 132/73
[2021-09-30 08:55] VITALS: BP 132/73
[2021-09-30] MEDS: AMIODARONE HCL 200 MG TAB PO SCH (09:26)
[2021-09-30] MEDS: SENNA 8.6 MG TAB PO SCH ×2 (09:26→21:29)
[2021-09-30] MEDS: HYDROCORTISONE SOD SUCC 100 MG/2ML INJ VIAL IV SCH (09:26)
[2021-09-30] MEDS: INSULIN LANTUS (GLARGINE) 1 /0.01ml (100units/ml) SC SCH ×2 (09:30→21:47)
[2021-09-30 13:21] VITALS: BP 135/76
[2021-09-30 17:07] VITALS: BP 122/65
[2021-09-30] MEDS: Pro-Stat SF 30ml Vanilla PO SCH (18:13)
[2021-09-30 22:00] VITALS: BP 144/77
[2021-10-01] MEDS: HYDROcodone-ACET 10/325MG TAB PO PRN ×3 (03:38→21:25)
[2021-10-01] MEDS: VANCOMYCIN 1GM/250ML 250 ML IV SCH ×3 (03:44→21:24)
[2021-10-01 05:00] VITALS: BP 109/50
[2021-10-01] MEDS: InsuLIN REG 1unit/0.01ml Soln (100units/ml) SC SCH ×4 (05:57→21:34)
[2021-10-01] MEDS: ACCU-CHEK COMFORT CURVE STRIP VI SCH ×4 (05:58→21:25)
[2021-10-01] MEDS: Pro-Stat SF 30ml Vanilla PO SCH ×2 (08:27→18:31)
[2021-10-01 08:37] LABS: BUN/Creatinine Ratio 35.9; Calcium 8.1 mg/dL (8.5-10.1); Potassium 3.8 mmol/L (3.5-5.1)
[2021-10-01 08:47] LABS: Basophils # (auto) 0 10 ^3/uL (0-0.2); Basophils % (auto) 0.2 % (0.0-2.0); Eosinophils # (auto) 0.2 10 ^3/uL (0-0.8); Hematocrit 43.9 % (41.0-53.0); Hemoglobin 14.5 g/dL (13.5-17.5); Lymphocytes # (auto) 1.6 10 ^3/uL (0.4-5.4); Lymphocytes % (auto) 13.4 % (10.0-50.0); Mean Corpuscular Hemoglobin 32.6 pg (28.0-32.0); Mean Corpuscular Hgb Conc. 33.1 g/dL (32.0-36.0); Mean Corpuscular Volume 98.5 fL (80.0-100.0); Monocytes # (auto) 1.5 10 ^3/uL (0-1.3); Monocytes % (auto) 11.9 % (0.0-12.0); Neutrophils # (auto) 8.9 10 ^3/uL (1.6-8.6); Neutrophils % (auto) 72.5 % (37.0-80.0); Nucleated Red Blood Cells % 0.1 %; Red Blood Cells 4.45 10^6/uL (4.5-5.90); Red Cell Distribution Width 16.5 % (11.8-14.3); White Blood Cell 12.2 10^3/uL (4.4-10.8)
[2021-10-01 09:00] VITALS: BP 121/67
[2021-10-01] MEDS: AMIODARONE HCL 200 MG TAB PO SCH (09:28)
[2021-10-01] MEDS: SENNA 8.6 MG TAB PO SCH ×2 (09:29→21:25)
[2021-10-01] MEDS: HYDROCORTISONE SOD SUCC 100 MG/2ML INJ VIAL IV SCH (09:29)
[2021-10-01] MEDS: FUROSEMIDE 40 MG/4 ML VIAL IV SCH (09:30)
[2021-10-01] MEDS: INSULIN LANTUS (GLARGINE) 1 /0.01ml (100units/ml) SC SCH ×2 (09:32→21:34)
[2021-10-01 12:58] VITALS: BP 120/78
[2021-10-01 16:45] VITALS: BP 131/68
[2021-10-01 22:00] VITALS: BP 125/73
[2021-10-01 22:10] VITALS: BP 122/70
[2021-10-02] MEDS: HYDROcodone-ACET 10/325MG TAB PO PRN ×2 (05:17→18:57)
[2021-10-02] MEDS: InsuLIN REG 1unit/0.01ml Soln (100units/ml) SC SCH ×4 (06:05→22:24)
[2021-10-02] MEDS: ACCU-CHEK COMFORT CURVE STRIP VI SCH ×4 (06:35→22:13)
[2021-10-02] MEDS: VANCOMYCIN 1GM/250ML 250 ML IV SCH ×2 (08:29→18:33)
[2021-10-02] MEDS: Pro-Stat SF 30ml Vanilla PO SCH ×2 (08:29→18:33)
[2021-10-02 09:00] VITALS: BP 120/74
[2021-10-02] MEDS: FUROSEMIDE 40 MG/4 ML VIAL IV SCH (10:28)
[2021-10-02] MEDS: AMIODARONE HCL 200 MG TAB PO SCH (10:29)
[2021-10-02] MEDS: SENNA 8.6 MG TAB PO SCH ×2 (10:29→22:12)
[2021-10-02] MEDS: HYDROCORTISONE SOD SUCC 100 MG/2ML INJ VIAL IV SCH (10:29)
[2021-10-02] MEDS: INSULIN LANTUS (GLARGINE) 1 /0.01ml (100units/ml) SC SCH ×2 (10:31→22:26)
[2021-10-02 13:00] VITALS: BP 124/74
[2021-10-02 14:05] LABS: INR 1.22 (0.9-1.15); Partial Thromboplastin Time 29.7 sec (24.6-33.4)
[2021-10-02 16:44] VITALS: BP 123/71
[2021-10-02] MEDS ORDERED: LIDOCAINE 1% (LOCAL ANESTH.) PF 5ml SDV ID ONE (18:15)
[2021-10-02] MEDS: SODIUM CHLOR 0.9% PF (SALINE LOCK) 10ML VIAL/SYR IV SCH (22:12)
[2021-10-02 22:52] VITALS: BP 115/63
[2021-10-03] MEDS: VANCOMYCIN 1GM/250ML 250 ML IV SCH (04:06)
[2021-10-03 05:29] VITALS: BP 123/65
[2021-10-03] MEDS: InsuLIN REG 1unit/0.01ml Soln (100units/ml) SC SCH ×4 (06:44→22:39)
[2021-10-03] MEDS: ACCU-CHEK COMFORT CURVE STRIP VI SCH ×4 (07:09→22:40)
[2021-10-03] MEDS: HYDROcodone-ACET 10/325MG TAB PO PRN ×2 (07:17→17:55)
[2021-10-03] MEDS: Pro-Stat SF 30ml Vanilla PO SCH ×2 (08:00→17:33)
[2021-10-03 09:00] VITALS: BP 121/76
[2021-10-03] MEDS: SODIUM CHLOR 0.9% PF (SALINE LOCK) 10ML VIAL/SYR IV SCH ×2 (10:42→22:41)
[2021-10-03] MEDS: FUROSEMIDE 40 MG/4 ML VIAL IV SCH (10:42)
[2021-10-03] MEDS: HYDROCORTISONE SOD SUCC 100 MG/2ML INJ VIAL IV SCH (10:42)
[2021-10-03] MEDS: AMIODARONE HCL 200 MG TAB PO SCH (10:43)
[2021-10-03] MEDS: SENNA 8.6 MG TAB PO SCH ×2 (10:43→22:36)
[2021-10-03] MEDS: INSULIN LANTUS (GLARGINE) 1 /0.01ml (100units/ml) SC SCH ×2 (10:46→22:40)
[2021-10-03 13:00] VITALS: BP 116/66
[2021-10-03] MEDS ORDERED: SENN-83 PO (13:25)
[2021-10-03] MEDS ORDERED: BLOO1KIT60 XX (13:25)
[2021-10-03] MEDS ORDERED: HYDR-4798 PO (13:25)
[2021-10-03] MEDS ORDERED: INSLANTI SC (13:25)
[2021-10-03] MEDS ORDERED: AMIO200T33 PO (13:25)
[2021-10-03] MEDS ORDERED: FURO1TAB31 PO (13:25)
[2021-10-03] MEDS ORDERED: LISI-716 PO (13:25)
[2021-10-03] MEDS ORDERED: CEFTRIAXONE SODIUM 2 GM in D5W 5% 50 ML IV ONE (15:30)
[2021-10-03 17:00] VITALS: BP 119/63
[2021-10-03 22:00] VITALS: BP 126/64
[2021-10-04] MEDS: HYDROcodone-ACET 10/325MG TAB PO PRN ×2 (04:10→10:00)
[2021-10-04 05:00] VITALS: BP 119/65
[2021-10-04] MEDS: InsuLIN REG 1unit/0.01ml Soln (100units/ml) SC SCH ×2 (07:00→12:47)
[2021-10-04] MEDS: ACCU-CHEK COMFORT CURVE STRIP VI SCH ×2 (07:03→12:45)
[2021-10-04] MEDS: Pro-Stat SF 30ml Vanilla PO SCH (08:00)
[2021-10-04 09:00] VITALS: BP 122/63
[2021-10-04] MEDS ORDERED: CEFTRIAXONE SODIUM 2 GM in D5W 5% 50 ML IV ONE (09:00)
[2021-10-04] MEDS: SENNA 8.6 MG TAB PO SCH (10:00)
[2021-10-04] MEDS: AMIODARONE HCL 200 MG TAB PO SCH (10:00)
[2021-10-04] MEDS: HYDROCORTISONE SOD SUCC 100 MG/2ML INJ VIAL IV SCH (10:02)
[2021-10-04] MEDS: FUROSEMIDE 40 MG/4 ML VIAL IV SCH (10:02)
[2021-10-04] MEDS: SODIUM CHLOR 0.9% PF (SALINE LOCK) 10ML VIAL/SYR IV SCH (10:02)
[2021-10-04] MEDS: INSULIN LANTUS (GLARGINE) 1 /0.01ml (100units/ml) SC SCH (10:09)
[2021-10-04 13:00] VITALS: BP 117/62
[2021-10-04 15:20] VITALS: BP 117/62
== END 2021-10-04 16:10 | disposition home health service (06) | DRG 720 ==
LOC: ER 12:59 → EDBD 12:59 → TELE 17:25 → ICU WEST 09-20 14:03 → TELE-CENTR 09-22 14:26
PROVIDERS: ADMIT Registered Nurse; ATTEND Internal Medicine
PROC: 02HV33Z Insertion of Infusion Device into Superior Vena Cava, Percutaneous Approach (ICD-10-PCS; principal; 2021-09-19)
PROC: 05HD33Z Insertion of Infusion Device into Right Cephalic Vein, Percutaneous Approach (ICD-10-PCS; 2021-09-20)
PROC: B54MZZA Ultrasonography of Right Upper Extremity Veins, Guidance (ICD-10-PCS; 2021-09-20)
PROC: 05HF33Z Insertion of Infusion Device into Left Cephalic Vein, Percutaneous Approach (ICD-10-PCS; 2021-09-23)
PROC: B54NZZA Ultrasonography of Left Upper Extremity Veins, Guidance (ICD-10-PCS; 2021-09-23)
DX: A41.9 Sepsis, unspecified organism (principal); J96.01 Acute respiratory failure with hypoxia; N17.0 Acute kidney failure with tubular necrosis; E43 Unspecified severe protein-calorie malnutrition; K72.90 Hepatic failure, unspecified without coma; R18.8 Other ascites; T84.54XA Infection and inflammatory reaction due to internal left knee prosthesis, initial encounter; D69.59 Other secondary thrombocytopenia; D64.9 Anemia, unspecified; E66.01 Morbid (severe) obesity due to excess calories; I48.0 Paroxysmal atrial fibrillation; J98.11 Atelectasis; K74.60 Unspecified cirrhosis of liver; N39.0 Urinary tract infection, site not specified; Z20.822 Contact with and (suspected) exposure to COVID-19; R65.20 Severe sepsis without septic shock; Y83.8 Other surgical procedures as the cause of abnormal reaction of the patient, or of later complication, without mention of misadventure at the time of the procedure; Z96.652 Presence of left artificial knee joint; B18.2 Chronic viral hepatitis C; I11.0 Hypertensive heart disease with heart failure; Z68.38 Body mass index [BMI] 38.0-38.9, adult; Z88.0 Allergy status to penicillin; Z68.41 Body mass index [BMI] 40.0-44.9, adult; Z91.81 History of falling; Z72.0 Tobacco use; Y92.89 Other specified places as the place of occurrence of the external cause; I50.9 Heart failure, unspecified
CPT/HCPCS: 36415; 36569; 36600; 51702; 71045; 71275; 73590; 73700; 74177; 80048; 80053; 80061; 80069; 80202; 81001; 82565; 82805; 82962; 83036; 83605; 83735; 83880; 84443; 84484; 85007; 85025; 85027; 85379; 85610; 85730; 87040; 87077; 87081; 87086; 87186; 93005; 93306; 93926; 93970; 96361; 96365; 96367; 96372; 96375; 97110; 97116; 97163; 97530; G0378; J0696; J1815; J7060; P9047

== ENCOUNTER → 2022-07-03 | Day surgery (SDC) | payer MEDICAID ==
[2022-07-01 15:40] LABS: Urine Bacteria FEW /hpf (None Seen); Urine Blood 2+ /uL (Negative); Urine Mucus FEW (None Seen); Urine Specific Gravity 1.036 (1.001-1.035); Urine WBC 9 /hpf (0 - 3)
[2022-07-01 15:54] LABS: INR 1.1 (0.9-1.15); Partial Thromboplastin Time 28.1 sec (24.6-33.4)
[2022-07-01 16:19] LABS: Albumin 2.5 g/dL (3.4-5.0); Calcium 8.9 mg/dL (8.5-10.1); Potassium 4.9 mmol/L (3.5-5.1)
[2022-07-01 16:22] LABS: BUN/Creatinine Ratio 27.5 (10.0-20.0); Bilirubin, Total 1.8 mg/dL (0.2-1.0)
[2022-07-01 16:58] LABS: Basophils # (auto) 0 10 ^3/uL (0-0.2); Basophils % (auto) 0.6 % (0.0-2.0); Eosinophils # (auto) 0.2 10 ^3/uL (0-0.8); Eosinophils % (auto) 4.4 % (0.0-7.0); Hematocrit 39.6 % (41.0-53.0); Hemoglobin 13.4 g/dL (13.5-17.5); Lymphocytes # (auto) 0.8 10 ^3/uL (0.4-5.4); Mean Corpuscular Hemoglobin 32.8 pg (28.0-32.0); Mean Corpuscular Volume 96.4 fL (80.0-100.0); Monocytes # (auto) 0.5 10 ^3/uL (0-1.3); Neutrophils # (auto) 2.1 10 ^3/uL (1.6-8.6); Nucleated Red Blood Cells % 0.1 %; Red Cell Distribution Width 17.3 % (11.8-14.3); White Blood Cell 3.6 10^3/uL (4.4-10.8)
[~2022-07-03] VITALS: Ht 185.4 cm; Wt 117.9 kg
[~2022-07-03] MED LIST changes: +CIPROFLOXACIN 400MG/200ML 200 ML IV ONE; +GLYCOPYRROLATE 0.2 MG/ML 1ML VIAL ONE; +HYDROmorphone HCL 2 MG/ML VL/or syr IV PRN; +INSLANTI SC; +MIDAZOLAM HCL 2MG/2ML 2ml VIAL (1mg/ml) ONE; +NEOSTIGMINE 1 MG/ML INJ (10mg/10ML VIAL) ONE; +ONDANSETRON HCL 4 MG/2 ML VIAL IV PRN; +ONDANSETRON HCL 4 MG/2 ML VIAL ONE; -POM; +PROPOFOL 10 MG/ML 20 ML IV ONE; +fentaNYL CITRATE 100 MCG/2 ML VL ONE
[2022-07-03 11:30] VITALS: BP 111/70
== END | disposition home or self-care (01) ==
LOC: SUR 07:19
PROVIDERS: ATTEND Urology
DX: R97.20 Elevated prostate specific antigen [PSA] (principal); N40.1 Benign prostatic hyperplasia with lower urinary tract symptoms; E11.9 Type 2 diabetes mellitus without complications; Z79.84 Long term (current) use of oral hypoglycemic drugs
CPT/HCPCS: 36415; 55700; 80053; 81001; 82962; 85025; 85610; 85730; 87086; C1769; J0744; J2250; J2405; J2704; J3010; J7030

== ENCOUNTER 2022-07-13 09:29 | Emergency (ER) | payer MEDICAID ==
[~2022-07-13] VITALS: Ht 185.4 cm; Wt 118.0 kg
[~2022-07-13 09:29] MED LIST changes: -CIPROFLOXACIN 400MG/200ML 200 ML IV ONE; -GLYCOPYRROLATE 0.2 MG/ML 1ML VIAL ONE; -HYDROmorphone HCL 2 MG/ML VL/or syr IV PRN; -MIDAZOLAM HCL 2MG/2ML 2ml VIAL (1mg/ml) ONE; -NEOSTIGMINE 1 MG/ML INJ (10mg/10ML VIAL) ONE; -ONDANSETRON HCL 4 MG/2 ML VIAL IV PRN; -ONDANSETRON HCL 4 MG/2 ML VIAL ONE; -PROPOFOL 10 MG/ML 20 ML IV ONE; -fentaNYL CITRATE 100 MCG/2 ML VL ONE
[2022-07-13] MEDS ORDERED: CLINDAMYCIN 900MG IV 50 ML IV ONE (10:30)
[2022-07-13] MEDS ORDERED: MORPHINE SULFATE 4 MG/ML SYR/VIAL IV ONE (10:30)
[2022-07-13] MEDS ORDERED: CIPROFLOXACIN 400MG/200ML 200 ML IV ONE (10:30)
[2022-07-13 11:06] LABS: Basophils # (auto) 0 10 ^3/uL (0-0.2); Basophils % (auto) 0.4 % (0.0-2.0); Eosinophils # (auto) 0.1 10 ^3/uL (0-0.8); Eosinophils % (auto) 1.5 % (0.0-7.0); Hematocrit 39.4 % (41.0-53.0); Hemoglobin 12.9 g/dL (13.5-17.5); Lymphocytes # (auto) 0.8 10 ^3/uL (0.4-5.4); Lymphocytes % (auto) 11.6 % (10.0-50.0); Mean Corpuscular Hemoglobin 31.2 pg (28.0-32.0); Mean Corpuscular Hgb Conc. 32.7 g/dL (32.0-36.0); Mean Corpuscular Volume 95.3 fL (80.0-100.0); Monocytes # (auto) 0.9 10 ^3/uL (0-1.3); Neutrophils % (auto) 73.5 % (37.0-80.0); Nucleated Red Blood Cells % 0.3 %; Red Blood Cells 4.14 10^6/uL (4.5-5.90); Red Cell Distribution Width 17.3 % (11.8-14.3); White Blood Cell 6.9 10^3/uL (4.4-10.8)
[2022-07-13 11:50] LABS: INR 1.13 (0.9-1.15); Partial Thromboplastin Time 20.8 sec (24.6-33.4)
[2022-07-13 11:53] LABS: BUN/Creatinine Ratio 14.7 (10.0-20.0); Potassium 4.7 mmol/L (3.5-5.1)
[2022-07-13 11:54] LABS: Albumin 2.1 g/dL (3.4-5.0); Calcium 8.2 mg/dL (8.5-10.1); Total Protein 7.2 g/dL (6.4-8.2)
[2022-07-13 12:51] LABS: Urine Bacteria MANY /hpf (None Seen); Urine Blood 1+ /uL (Negative); Urine Mucus FEW (None Seen); Urine Specific Gravity 1.024 (1.001-1.035); Urine WBC 243 /hpf (0 - 3)
[2022-07-13] MEDS ORDERED: fentaNYL CITRATE 100 MCG/2 ML VL IV ONE (15:15)
[2022-07-13 18:37] VITALS: BP 116/61
== END 2022-07-13 14:42 | disposition short-term general hospital (02) ==
LOC: EDBD 09:29 → ER 09:29
DX: N50.811 Right testicular pain (principal); L03.116 Cellulitis of left lower limb; R07.89 Other chest pain; Z79.899 Other long term (current) drug therapy
CPT/HCPCS: 36415; 71045; 74176; 76870; 80053; 81001; 83605; 85025; 85610; 85730; 87040; 87086; 87088; 87186; 87205; 93005; 96365; 96366; 96367; 96375; 99285; J0744; J2270; J3010; J3490

== ENCOUNTER 2023-06-29 16:53 | Inpatient (IN) | payer MEDICAID ==
[~2023-06-29] VITALS: Ht 188 cm; Wt 129.7 kg
[2023-06-29 17:22] VITALS: PULSE 95; RESP 21; O2SAT 97
[2023-06-29] MEDS: FUROSEMIDE 100 MG/10ML VIAL IV ONE (17:48)
[2023-06-29] MEDS: SPIRONOLACTONE 25 MG TAB PO ONE (17:55)
[2023-06-29 18:15] LABS: Basophils # (auto) 0 10 ^3/uL (0-0.2); Basophils % (auto) 0.1 % (0.0-2.0); Eosinophils # (auto) 0 10 ^3/uL (0-0.8); Lymphocytes # (auto) 0.1 10 ^3/uL (0.4-5.4); Monocytes # (auto) 0.3 10 ^3/uL (0-1.3); Neutrophils # (auto) 3.2 10 ^3/uL (1.6-8.6)
[2023-06-29 18:17] LABS: Eosinophils % (auto) 0.2 % (0.0-7.0); Hematocrit 15.8 % (41.0-53.0); Lymphocytes % (auto) 2.7 % (10.0-50.0); Mean Corpuscular Hemoglobin 35.3 pg (28.0-32.0); Mean Corpuscular Hgb Conc. 33.2 g/dL (32.0-36.0); Mean Corpuscular Volume 106.4 fL (80.0-100.0); Monocytes % (auto) 9.5 % (0.0-12.0); Neutrophils % (auto) 87.5 % (37.0-80.0); Nucleated Red Blood Cells % 0.1 %; Red Blood Cells 1.49 10^6/uL (4.5-5.90); White Blood Cell 3.7 10^3/uL (4.4-10.8)
[2023-06-29 18:29] LABS: Amphetamine Screen, Urine Neg (NEGATIVE); Barbiturate Scree,Urine Neg (NEGATIVE); Benzodiazephine Screen, Urine Neg (NEGATIVE); Cocaine Screen, Urine Neg (NEGATIVE); Opiate Scree,Urine Pos (NEGATIVE)
[2023-06-29 18:30] LABS: Cannabinoid Screen, Urine Neg (NEGATIVE); Phencyclidine Screen, Urine Neg (NEGATIVE)
[2023-06-29 18:36] LABS: Urine Bacteria FEW /hpf (None Seen); Urine Blood 3+ /uL (Negative); Urine Clarity Clear (Clear); Urine Color Dark-Yellow (Yellow); Urine Protein, UAD TRACE (Negative); Urine Specific Gravity 1.013 (1.001-1.035); Urine Urobilinogen 6 mg/dL (Negative); Urine WBC 3 /hpf (0 - 3)
[2023-06-29 18:39] LABS: Hemoglobin 5.2 g/dL (13.5-17.5); Red Cell Distribution Width 20.1 % (11.8-14.3)
[2023-06-29 18:46] LABS: INR 1.41 (0.9-1.15); Partial Thromboplastin Time 31.6 SEC (24.5-34.5); Prothrombin Time 14.6 sec (9.3-11.8)
[2023-06-29] MEDS: OCTREOTIDE ACETATE 500 MCG in SODIUM CHL 0.9% 99 ML IV SCH (19:00)
[2023-06-29 19:07] LABS: Alanine Aminotransferase 53 U/L (7-40); Albumin 2.3 g/dL (3.2-4.8); Alkaline Phosphatase 230 U/L (46-116); Anion Gap 9 (5-15); Aspartate Aminotransferase 121 U/L (13-40); Blood Urea Nitrogen 22 mg/dL (9-23); Carbon Dioxide 20 mmol/L (20-30); Chloride 105 mmol/L (98-107); Glucose 136 mg/dL (74-106); Potassium 2.9 mmol/L (3.5-5.1); Sodium 134 mmol/L (136-145)
[2023-06-29 19:08] LABS: Bilirubin, Total 12.9 mg/dL (0.2-1.0); Total Protein 4.7 g/dL (5.7-8.2)
[2023-06-29 19:25] LABS: Anisocytosis Slight; Macrocytosis Moderate; Platelet Estimate Decreased
[2023-06-29 19:26] LABS: Stomatocytes Few; Tear Drop Cells FEW
[2023-06-29 19:50] VITALS: PULSE 81; RESP 20; O2SAT 98
[2023-06-29] MEDS ORDERED: NITROGLYCERIN 0.4 MG SL TAB SL PRN (20:30)
[2023-06-29] MEDS: PANTOPRAZOLE 40mg/50ML NS AE 50 ML IV SCH (20:30)
[2023-06-29] MEDS: PANTOPRAZOLE 40mg/50ML NS AE 50 ML IV ONE (20:46)
[2023-06-29] MEDS: LACTULOSE 20Gm/30ML SOLN PO ONE (20:46)
[2023-06-30] VITALS (10 sets, daily range): BP systolic 90–122; BP diastolic 33–77; PULSE 77–89; RESP 16–25; TEMP 97.9–98.7; O2SAT 99
[2023-06-30] MEDS: POTASSIUM CHL 20 Meq TABLET PO ONE (04:44)
[2023-06-30] MEDS: ONDANSETRON HCL 4 MG/2 ML VIAL IV PRN (04:59)
[2023-06-30] MEDS: MORPHINE SULFATE INJ 2 MG/ml SYRG IV PRN (05:00)
[2023-06-30] MEDS: LACTULOSE 10g/15ml SOLN 473ML PR SCH (05:43)
[2023-06-30] MEDS: FUROSEMIDE 20 MG/2 ML VIAL IV SCH (06:00)
[2023-06-30 09:15] LABS: Basophils # (auto) 0 10 ^3/uL (0-0.2); Basophils % (auto) 0.2 % (0.0-2.0); Eosinophils # (auto) 0 10 ^3/uL (0-0.8); Hemoglobin 7.1 g/dL (13.5-17.5); Lymphocytes # (auto) 0.2 10 ^3/uL (0.4-5.4); Monocytes # (auto) 0.5 10 ^3/uL (0-1.3); Neutrophils % (auto) 84.6 % (37.0-80.0); Nucleated Red Blood Cells % 0.2 %
[2023-06-30 09:17] LABS: Eosinophils % (auto) 0.3 % (0.0-7.0); Hematocrit 21.5 % (41.0-53.0); Lymphocytes % (auto) 3.5 % (10.0-50.0); Mean Corpuscular Hemoglobin 34.2 pg (28.0-32.0); Mean Corpuscular Hgb Conc. 32.8 g/dL (32.0-36.0); Mean Corpuscular Volume 104.2 fL (80.0-100.0); Monocytes % (auto) 11.4 % (0.0-12.0); Neutrophils # (auto) 3.7 10 ^3/uL (1.6-8.6); Red Blood Cells 2.06 10^6/uL (4.5-5.90); Red Cell Distribution Width 23.2 % (11.8-14.3); White Blood Cell 4.3 10^3/uL (4.4-10.8)
[2023-06-30 09:32] LABS: Alanine Aminotransferase 59 U/L (7-40); Albumin 2.5 g/dL (3.2-4.8); Alkaline Phosphatase 218 U/L (46-116); Anion Gap 8 (5-15); Aspartate Aminotransferase 142 U/L (13-40); Bilirubin, Total 15.3 mg/dL (0.2-1.0); Blood Urea Nitrogen 21 mg/dL (9-23); Calcium 8.1 mg/dL (8.5-10.1); Carbon Dioxide 21 mmol/L (20-30); Chloride 105 mmol/L (98-107); Glucose 142 mg/dL (74-106); Potassium 3.4 mmol/L (3.5-5.1); Sodium 134 mmol/L (136-145); Total Protein 5.1 g/dL (5.7-8.2)
[2023-06-30 12:21] LABS: INR 1.4 (0.9-1.15); Partial Thromboplastin Time 28.5 SEC (24.5-34.5); Prothrombin Time 14.5 sec (9.3-11.8)
[2023-06-30] MEDS ORDERED: DEXTROSE (50%) 50ML SYRG IV PRN (12:45)
[2023-06-30] MEDS: HYDROmorphone HCL 2 MG/ML VL/or syr IV PRN (13:17)
[2023-06-30 13:35] LABS: LDL Cholesterol 41 mg/dL (< 100); Magnesium 1.9 mg/dL (1.6-2.6)
[2023-06-30 13:36] LABS: Cholesterol 92 mg/dL (< 200); HDL Cholesterol < 5 mg/dL (40-59); Phosphorus 3.7 mg/dL (2.4-5.1)
[2023-06-30 13:39] LABS: Triglycerides 125 mg/dL (< 150)
[2023-06-30 13:51] LABS: Lipase 23 U/L (12-53)
[2023-06-30] MEDS: FUROSEMIDE 40 MG/4 ML VIAL IV SCH (14:17)
[2023-06-30] MEDS: PIPERACILLIN-TAZOB 3.375GM 100 ML IV SCH (14:18)
[2023-06-30] MEDS ORDERED: GABA-1250 PO (16:32)
[2023-06-30] MEDS ORDERED: MORP30TA PO (16:32)
[2023-06-30] MEDS ORDERED: LACT10SO3 PO (16:32)
[2023-06-30] MEDS ORDERED: NEUTRA PO (16:32)
[2023-06-30] MEDS ORDERED: SODI650T PO (16:32)
[2023-06-30 16:56] LABS: Basophils # (auto) 0 10 ^3/uL (0-0.2); Eosinophils # (auto) 0 10 ^3/uL (0-0.8); Lymphocytes # (auto) 0.1 10 ^3/uL (0.4-5.4); Monocytes # (auto) 0.3 10 ^3/uL (0-1.3); Neutrophils # (auto) 2.9 10 ^3/uL (1.6-8.6); White Blood Cell 3.4 10^3/uL (4.4-10.8)
[2023-06-30 16:58] LABS: Basophils % (auto) 0.5 % (0.0-2.0); Eosinophils % (auto) 0.4 % (0.0-7.0); Hematocrit 18.5 % (41.0-53.0); Lymphocytes % (auto) 4.1 % (10.0-50.0); Mean Corpuscular Hemoglobin 33.4 pg (28.0-32.0); Mean Corpuscular Hgb Conc. 33.2 g/dL (32.0-36.0); Mean Corpuscular Volume 100.7 fL (80.0-100.0); Monocytes % (auto) 9.8 % (0.0-12.0); Neutrophils % (auto) 85.2 % (37.0-80.0); Nucleated Red Blood Cells % 0.2 %; Red Blood Cells 1.84 10^6/uL (4.5-5.90)
[2023-06-30 16:59] LABS: Red Cell Distribution Width 22.9 % (11.8-14.3)
[2023-06-30] MEDS: InsuLIN REG 1unit/0.01ml Soln (100units/ml) SC SCH (17:00)
[2023-06-30 17:02] LABS: Hemoglobin 6.1 g/dL (13.5-17.5)
[2023-06-30] MEDS: ACCU-CHEK COMFORT CURVE STRIP VI SCH (17:08)
[2023-06-30 18:13] LABS: Anisocytosis Slight; Macrocytosis Slight; Platelet Estimate Decreased
[2023-06-30 18:22] LABS: Chloride 104 mmol/L (98-107); Potassium 3.2 mmol/L (3.5-5.1); Sodium 134 mmol/L (136-145)
[2023-06-30 18:23] LABS: Anion Gap 8 (5-15); Carbon Dioxide 22 mmol/L (20-30)
[2023-06-30 18:24] LABS: Calcium 7.7 mg/dL (8.5-10.1)
[2023-06-30 18:28] LABS: Glucose 180 mg/dL (74-106)
[2023-06-30 18:29] LABS: Blood Urea Nitrogen 26 mg/dL (9-23)
[2023-06-30 18:32] LABS: BUN/Creatinine Ratio 16.9 (10.0-20.0)
[2023-06-30] MEDS: OCTREOTIDE ACETATE 500 MCG/ML VL ONE (19:08)
[2023-06-30] MEDS: ERGOCALCIFEROL 50,000 UNIT(1.25MG) CAP PO SCH (22:15)
[2023-06-30] MEDS: POTASSIUM CHLORIDE 40 MEQ, LIDOCAINE 1% (LOCAL ANESTH.) 4 ML in SODIUM CHL 0.9% 250 ML IV ONE (23:20)
[2023-07-01] VITALS (15 sets, daily range): BP systolic 87–117; BP diastolic 34–64; PULSE 69–100; RESP 16–20; TEMP 97.5–98.2; O2SAT 97–100
[2023-07-01] MEDS: CALCIUM GLUC 1,000mg/50ml-NS 50 ML IV ONE (00:38)
[2023-07-01] MEDS: OCTREOTIDE ACETATE 500 MCG/ML VL ONE (04:17)
[2023-07-01] MEDS: GABAPENTIN 300 MG CAP PO SCH (05:37)
[2023-07-01] MEDS: MORPHINE SULF 30 mg ER tab PO SCH (05:40)
[2023-07-01] MEDS ORDERED: VANCOMYCIN PER PHARMACY 0 MG IV SCH (06:15)
[2023-07-01] MEDS: VANCOMYCIN 1GM/200ML 200 ML IV ONE (06:26)
[2023-07-01] MEDS: NEUTRA-PHOS TABLET PO SCH (10:29)
[2023-07-01 11:09] LABS: Basophils # (auto) 0 10 ^3/uL (0-0.2); Basophils % (auto) 0.5 % (0.0-2.0); Eosinophils # (auto) 0.1 10 ^3/uL (0-0.8); Lymphocytes # (auto) 0.2 10 ^3/uL (0.4-5.4); Monocytes # (auto) 0.4 10 ^3/uL (0-1.3); White Blood Cell 2.8 10^3/uL (4.4-10.8)
[2023-07-01 11:12] LABS: Eosinophils % (auto) 2.7 % (0.0-7.0); Hematocrit 20.2 % (41.0-53.0); Lymphocytes % (auto) 6.2 % (10.0-50.0); Mean Corpuscular Hemoglobin 34.4 pg (28.0-32.0); Mean Corpuscular Hgb Conc. 34.5 g/dL (32.0-36.0); Mean Corpuscular Volume 99.8 fL (80.0-100.0); Monocytes % (auto) 13.6 % (0.0-12.0); Neutrophils # (auto) 2.2 10 ^3/uL (1.6-8.6); Nucleated Red Blood Cells % 0.2 %; Red Blood Cells 2.03 10^6/uL (4.5-5.90)
[2023-07-01 11:26] LABS: Ferritin 153.8 ng/mL (22-322); Folate (Folic Acid) 7.85 ng/mL (>5.38)
[2023-07-01 11:28] LABS: Red Cell Distribution Width 21.3 % (11.8-14.3)
[2023-07-01 11:30] LABS: Alanine Aminotransferase 62 U/L (7-40); Albumin 2.4 g/dL (3.2-4.8); Alkaline Phosphatase 205 U/L (46-116); Anion Gap 6 (5-15); Aspartate Aminotransferase 153 U/L (13-40); BUN/Creatinine Ratio 16.9 (10.0-20.0); Bilirubin, Total 13.6 mg/dL (0.2-1.0); Blood Urea Nitrogen 28 mg/dL (9-23); Calcium 7.7 mg/dL (8.5-10.1); Carbon Dioxide 24 mmol/L (20-30); Chloride 104 mmol/L (98-107); Glucose 160 mg/dL (74-106); Magnesium 1.8 mg/dL (1.6-2.6); Phosphorus 3.4 mg/dL (2.4-5.1); Potassium 2.8 mmol/L (3.5-5.1); Sodium 134 mmol/L (136-145)
[2023-07-01 11:33] LABS: % Iron Saturation 24.1 % (20-55)
[2023-07-01] MEDS: LACTULOSE 20Gm/30ML SOLN PO ONE (18:17)
[2023-07-01 19:12] LABS: Body Fluid Polymorphonuclear 20 % (0-25); Body Fluid Red Blood Cells 375 CUMM (0-2000); Body Fluid White Blood Cells 38 CUMM (0-200)
[2023-07-01] MEDS ORDERED: MORPHINE SULFATE 4 MG/ML SYR/VIAL IV PRN (21:45)
[2023-07-01] MEDS: VANCOMYCIN 1GM/200ML 200 ML IV SCH (22:32)
[2023-07-02] VITALS (11 sets, daily range): BP systolic 106–151; BP diastolic 43–77; PULSE 73–104; RESP 15–22; TEMP 97.3–98.4; O2SAT 90–100
[2023-07-02 06:05] LABS: Basophils # (auto) 0 10 ^3/uL (0-0.2); Basophils % (auto) 0.4 % (0.0-2.0); Eosinophils # (auto) 0.2 10 ^3/uL (0-0.8); Eosinophils % (auto) 3.3 % (0.0-7.0); Hematocrit 27.5 % (41.0-53.0); Hemoglobin 9.2 g/dL (13.5-17.5); Lymphocytes # (auto) 0.4 10 ^3/uL (0.4-5.4); Lymphocytes % (auto) 6.1 % (10.0-50.0); Mean Corpuscular Hemoglobin 33.6 pg (28.0-32.0); Mean Corpuscular Hgb Conc. 33.4 g/dL (32.0-36.0); Mean Corpuscular Volume 100.7 fL (80.0-100.0); Monocytes # (auto) 0.8 10 ^3/uL (0-1.3); Monocytes % (auto) 14.5 % (0.0-12.0); Neutrophils # (auto) 4.4 10 ^3/uL (1.6-8.6); Neutrophils % (auto) 75.7 % (37.0-80.0); Nucleated Red Blood Cells % 0.2 %; Red Blood Cells 2.74 10^6/uL (4.5-5.90); White Blood Cell 5.8 10^3/uL (4.4-10.8)
[2023-07-02 06:09] LABS: INR 1.3 (0.9-1.15); Partial Thromboplastin Time 30.3 SEC (24.5-34.5); Prothrombin Time 13.5 sec (9.3-11.8)
[2023-07-02 06:18] LABS: Alanine Aminotransferase 83 U/L (7-40); Albumin 2.7 g/dL (3.2-4.8); Alkaline Phosphatase 234 U/L (46-116); Anion Gap 5 (5-15); Aspartate Aminotransferase 195 U/L (13-40); Bilirubin, Total 14.4 mg/dL (0.2-1.0); Blood Urea Nitrogen 24 mg/dL (9-23); Calcium 7.7 mg/dL (8.7-10.4); Carbon Dioxide 25 mmol/L (20-30); Chloride 103 mmol/L (98-107); Glucose 135 mg/dL (74-106); Lipase 74 U/L (12-53); Magnesium 1.8 mg/dL (1.6-2.6); Potassium 3.5 mmol/L (3.5-5.1); Sodium 133 mmol/L (136-145); Total Protein 5.9 g/dL (5.7-8.2)
[2023-07-02 06:20] LABS: Red Cell Distribution Width 23.1 % (11.8-14.3)
[2023-07-02 06:21] LABS: BUN/Creatinine Ratio 15.7 (10.0-20.0)
[2023-07-02] MEDS ORDERED: VANCOMYCIN PER PHARMACY 0 MG IV SCH (08:00)
[2023-07-02] MEDS: ALBUMIN 25% 50 ML IV SCH (09:10)
[2023-07-02 09:11] LABS: Hepatitis B Surface Antigen Negative (Negative)
[2023-07-02] MEDS: LACTULOSE 20Gm/30ML SOLN PO SCH (09:22)
[2023-07-02 09:32] LABS: Hepatitis A Ab IgM Negative; Hepatitis B Core IgM Negative
[2023-07-02] MEDS ORDERED: LACTULOSE 20Gm/30ML SOLN PO SCH ×2 (10:00)
[2023-07-02 11:43] LABS: Hepatitis C Antibody Reactive (Negative)
[2023-07-02] MEDS: MEROPENEM 1GM IVPB 50 ML IV SCH (13:50)
[2023-07-02 15:06] LABS: Protein, Body Fluid 0.6 g/dL (.)
[2023-07-03] VITALS (10 sets, daily range): BP systolic 86–111; BP diastolic 34–58; PULSE 60–73; RESP 10–19; TEMP 97.6–98; O2SAT 97–100
[2023-07-03 06:29] LABS: Basophils # (auto) 0 10 ^3/uL (0-0.2); Basophils % (auto) 0.6 % (0.0-2.0); Eosinophils # (auto) 0.1 10 ^3/uL (0-0.8); Hemoglobin 7.2 g/dL (13.5-17.5); Lymphocytes # (auto) 0.2 10 ^3/uL (0.4-5.4); Mean Corpuscular Volume 100.1 fL (80.0-100.0); Monocytes # (auto) 0.3 10 ^3/uL (0-1.3); Neutrophils # (auto) 1.5 10 ^3/uL (1.6-8.6)
[2023-07-03 06:32] LABS: Eosinophils % (auto) 5.3 % (0.0-7.0); Hematocrit 21.6 % (41.0-53.0); Lymphocytes % (auto) 10.2 % (10.0-50.0); Mean Corpuscular Hemoglobin 33.2 pg (28.0-32.0); Mean Corpuscular Hgb Conc. 33.2 g/dL (32.0-36.0); Monocytes % (auto) 14.6 % (0.0-12.0); Neutrophils % (auto) 69.3 % (37.0-80.0); Nucleated Red Blood Cells % 0.8 %; Red Blood Cells 2.16 10^6/uL (4.5-5.90); Red Cell Distribution Width 22.4 % (11.8-14.3)
[2023-07-03 06:35] LABS: INR 1.39 (0.9-1.15); Partial Thromboplastin Time 34.2 SEC (24.5-34.5); Prothrombin Time 14.4 sec (9.3-11.8)
[2023-07-03 06:44] LABS: Alanine Aminotransferase 63 U/L (7-40); Albumin 2.4 g/dL (3.2-4.8); Alkaline Phosphatase 212 U/L (46-116); Anion Gap 9 (5-15); Aspartate Aminotransferase 146 U/L (13-40); Blood Urea Nitrogen 25 mg/dL (9-23); Calcium 7.6 mg/dL (8.7-10.4); Carbon Dioxide 23 mmol/L (20-30); Chloride 106 mmol/L (98-107); Glucose 136 mg/dL (74-106); Magnesium 1.6 mg/dL (1.6-2.6); Potassium 2.6 mmol/L (3.5-5.1); Sodium 138 mmol/L (136-145)
[2023-07-03 06:45] LABS: Bilirubin, Total 10.6 mg/dL (0.2-1.0); Phosphorus 2.8 mg/dL (2.4-5.1)
[2023-07-03 07:03] LABS: White Blood Cell 2.2 10^3/uL (4.4-10.8)
[2023-07-03] MEDS: POTASSIUM CHL 20MEQ/100ML 100 ML IV SCH (07:30)
[2023-07-03] MEDS: VANCOMYCIN 1GM/200ML 200 ML IV SCH (08:00)
[2023-07-03] MEDS: MAGNESIUM SULFATE 1GM/100ML 100 ML IV ONE (08:30)
[2023-07-03] MEDS: LACTULOSE 20Gm/30ML SOLN PO SCH (10:00)
[2023-07-03] MEDS: MORPHINE SULF 15mg ER tab PO SCH (11:07)
[2023-07-03] MEDS: POTASSIUM CHLORIDE 60 MEQ, LIDOCAINE 1% (LOCAL ANESTH.) 6 ML in SODIUM CHL 0.9% 500 ML IV ONE (11:31)
[2023-07-03] MEDS: LIDOCAINE 2%HCL (LOCAL ANESTH.) INJ 20ML MDV ONE (13:33)
[2023-07-03] MEDS: HYDROmorphone HCL 2 MG/ML VL/or syr ONE (13:44)
[2023-07-03] MEDS ORDERED: MORPHINE SULFATE 4 MG/ML SYR/VIAL IV PRN (15:30)
[2023-07-04] VITALS (9 sets, daily range): BP systolic 106–128; BP diastolic 42–64; PULSE 60–71; RESP 18–20; TEMP 97–98; O2SAT 98–100
[2023-07-04 06:34] LABS: Basophils # (auto) 0 10 ^3/uL (0-0.2); Eosinophils # (auto) 0.1 10 ^3/uL (0-0.8); Hemoglobin 7.8 g/dL (13.5-17.5); Lymphocytes # (auto) 0.2 10 ^3/uL (0.4-5.4); Monocytes # (auto) 0.3 10 ^3/uL (0-1.3); Neutrophils # (auto) 1.9 10 ^3/uL (1.6-8.6); White Blood Cell 2.6 10^3/uL (4.4-10.8)
[2023-07-04 06:37] LABS: Basophils % (auto) 0.6 % (0.0-2.0); Eosinophils % (auto) 4.1 % (0.0-7.0); Hematocrit 23.3 % (41.0-53.0); Lymphocytes % (auto) 8.4 % (10.0-50.0); Mean Corpuscular Hemoglobin 33.5 pg (28.0-32.0); Mean Corpuscular Hgb Conc. 33.4 g/dL (32.0-36.0); Mean Corpuscular Volume 100.3 fL (80.0-100.0); Monocytes % (auto) 12.5 % (0.0-12.0); Neutrophils % (auto) 74.4 % (37.0-80.0); Nucleated Red Blood Cells % 0.2 %; Red Blood Cells 2.32 10^6/uL (4.5-5.90)
[2023-07-04 06:52] LABS: Alanine Aminotransferase 69 U/L (7-40); Albumin 2.6 g/dL (3.2-4.8); Alkaline Phosphatase 244 U/L (46-116); Anion Gap 7 (5-15); Blood Urea Nitrogen 17 mg/dL (9-23); Calcium 8.2 mg/dL (8.5-10.1); Carbon Dioxide 24 mmol/L (20-30); Chloride 109 mmol/L (98-107); Glucose 148 mg/dL (74-106); Magnesium 1.9 mg/dL (1.6-2.6); Potassium 2.7 mmol/L (3.5-5.1); Sodium 140 mmol/L (136-145)
[2023-07-04 06:53] LABS: Bilirubin, Total 10.8 mg/dL (0.2-1.0); Phosphorus 2.3 mg/dL (2.4-5.1); Total Protein 5.3 g/dL (5.7-8.2)
[2023-07-04 07:15] LABS: Aspartate Aminotransferase 163 U/L (13-40)
[2023-07-04 07:16] LABS: BUN/Creatinine Ratio 12.8 (10.0-20.0)
[2023-07-04] MEDS: POTASSIUM EFFERVESENT TAB 25 MEQ PO ONE (09:46)
[2023-07-04] MEDS: FUROSEMIDE 40 MG/4 ML VIAL IV SCH (12:45)
[2023-07-04] MEDS: SPIRONOLACTONE 25 MG TAB PO ONE (14:21)
[2023-07-04] MEDS: MAGNESIUM OXIDE 400 MG TAB PO ONE (14:22)
[2023-07-04] MEDS: VANCOMYCIN 1GM/200ML 200 ML IV SCH (17:52)
[2023-07-05] VITALS (9 sets, daily range): BP systolic 94–129; BP diastolic 47–65; PULSE 62–79; RESP 18–21; TEMP 97.2–98.1; O2SAT 94–100
[2023-07-05 06:16] LABS: Basophils # (auto) 0 10 ^3/uL (0-0.2); Hemoglobin 7.5 g/dL (13.5-17.5); Lymphocytes # (auto) 0.3 10 ^3/uL (0.4-5.4); Monocytes # (auto) 0.4 10 ^3/uL (0-1.3); Neutrophils # (auto) 2.1 10 ^3/uL (1.6-8.6); White Blood Cell 2.9 10^3/uL (4.4-10.8)
[2023-07-05 06:22] LABS: Basophils % (auto) 0.6 % (0.0-2.0); Eosinophils # (auto) 0.2 10 ^3/uL (0-0.8); Eosinophils % (auto) 5.3 % (0.0-7.0); Hematocrit 22.8 % (41.0-53.0); Lymphocytes % (auto) 9.2 % (10.0-50.0); Mean Corpuscular Hemoglobin 33.2 pg (28.0-32.0); Mean Corpuscular Hgb Conc. 32.9 g/dL (32.0-36.0); Mean Corpuscular Volume 101.1 fL (80.0-100.0); Neutrophils % (auto) 70.9 % (37.0-80.0); Red Blood Cells 2.26 10^6/uL (4.5-5.90); Red Cell Distribution Width 22.2 % (11.8-14.3)
[2023-07-05 06:31] LABS: Calcium 8.1 mg/dL (8.7-10.4); Chloride 107 mmol/L (98-107); Potassium 2.8 mmol/L (3.5-5.1); Sodium 139 mmol/L (136-145)
[2023-07-05 06:32] LABS: Anion Gap 8 (5-15); Carbon Dioxide 24 mmol/L (20-30)
[2023-07-05 06:37] LABS: BUN/Creatinine Ratio 11.9 (10.0-20.0); Blood Urea Nitrogen 15 mg/dL (9-23); Glucose 138 mg/dL (74-106)
[2023-07-05 06:38] LABS: Magnesium 1.8 mg/dL (1.6-2.6)
[2023-07-05] MEDS: SPIRONOLACTONE 25 MG TAB PO SCH (09:38)
[2023-07-05] MEDS ORDERED: SPIRONOLACTONE 25 MG TAB PO SCH (10:00)
[2023-07-05] MEDS: POTASSIUM CHLORIDE 60 MEQ, LIDOCAINE 1% (LOCAL ANESTH.) 6 ML in SODIUM CHL 0.9% 500 ML IV ONE (10:20)
[2023-07-05] MEDS: rifAXIMin 550 MG TAB PO ONE (17:18)
[2023-07-05] MEDS: OCTREOTIDE ACETATE 500 MCG in SODIUM CHL 0.9% 99 ML IV SCH (18:05)
[2023-07-05] MEDS: rifAXIMin 550 MG TAB PO SCH (22:25)
[2023-07-06] VITALS (8 sets, daily range): BP systolic 103–126; BP diastolic 50–85; PULSE 65–78; RESP 18–20; TEMP 97.3–97.6; O2SAT 95–100
[2023-07-06 03:16] LABS: Basophils # (auto) 0 10 ^3/uL (0-0.2); Basophils % (auto) 0.6 % (0.0-2.0); Eosinophils # (auto) 0.1 10 ^3/uL (0-0.8); Eosinophils % (auto) 3.5 % (0.0-7.0); Hematocrit 25.5 % (41.0-53.0); Hemoglobin 8.5 g/dL (13.5-17.5); Lymphocytes # (auto) 0.3 10 ^3/uL (0.4-5.4); Lymphocytes % (auto) 6.9 % (10.0-50.0); Mean Corpuscular Hemoglobin 33.1 pg (28.0-32.0); Mean Corpuscular Hgb Conc. 33.3 g/dL (32.0-36.0); Mean Corpuscular Volume 99.4 fL (80.0-100.0); Monocytes # (auto) 0.4 10 ^3/uL (0-1.3); Neutrophils # (auto) 2.9 10 ^3/uL (1.6-8.6); Nucleated Red Blood Cells % 0.1 %; Red Blood Cells 2.57 10^6/uL (4.5-5.90); White Blood Cell 3.7 10^3/uL (4.4-10.8)
[2023-07-06 03:21] LABS: Red Cell Distribution Width 21.4 % (11.8-14.3)
[2023-07-06 03:31] LABS: INR 1.35 (0.9-1.15); Partial Thromboplastin Time 31.9 SEC (24.5-34.5)
[2023-07-06 03:34] LABS: Alanine Aminotransferase 82 U/L (7-40); Albumin 2.7 g/dL (3.2-4.8); Alkaline Phosphatase 272 U/L (46-116); Anion Gap 5 (5-15); Aspartate Aminotransferase 175 U/L (13-40); Bilirubin, Total 10.6 mg/dL (0.2-1.0); Blood Urea Nitrogen 14 mg/dL (9-23); Calcium 8.7 mg/dL (8.7-10.4); Carbon Dioxide 25 mmol/L (20-30); Chloride 110 mmol/L (98-107); Glucose 151 mg/dL (74-106); Magnesium 1.9 mg/dL (1.6-2.6); Phosphorus 2.3 mg/dL (2.4-5.1); Potassium 3.4 mmol/L (3.5-5.1); Sodium 140 mmol/L (136-145); Total Protein 5.8 g/dL (5.7-8.2)
[2023-07-06 03:38] LABS: BUN/Creatinine Ratio 11.9 (10.0-20.0)
[2023-07-06] MEDS: POTASSIUM PHOSPHATE 22 MEQ in SODIUM CHL 0.9% 100 ML IV ONE (15:23)
[2023-07-06] MEDS: OCTREOTIDE ACETATE 100 MCG/ML VL SUBCUT ONE (17:47)
[2023-07-06] MEDS ORDERED: VANCOMYCIN 500 MG in D5W 5% 100 ML IV ONE (21:00)
[2023-07-06] MEDS: POTASSIUM CHLORIDE 40 MEQ, LIDOCAINE 1% (LOCAL ANESTH.) 4 ML in SODIUM CHL 0.9% 250 ML IV ONE (21:03)
[2023-07-06] MEDS: PANTOPRAZOLE 40 MG/10 ML VIAL INJ IV SCH (21:14)
[2023-07-06] MEDS: VANCOMYCIN 1GM/200ML 200 ML IV ONE (21:15)
[2023-07-07] VITALS (8 sets, daily range): BP systolic 115–157; BP diastolic 46–75; PULSE 66–81; RESP 18–22; TEMP 97.1–98.8; O2SAT 92–100
[2023-07-07] MEDS: MORPHINE SULF 15mg ER tab PO SCH (10:22)
[2023-07-07 10:54] LABS: Basophils # (auto) 0 10 ^3/uL (0-0.2); Eosinophils # (auto) 0.1 10 ^3/uL (0-0.8); Hemoglobin 7.5 g/dL (13.5-17.5); Lymphocytes # (auto) 0.2 10 ^3/uL (0.4-5.4); Monocytes # (auto) 0.3 10 ^3/uL (0-1.3); Neutrophils # (auto) 2.1 10 ^3/uL (1.6-8.6); Nucleated Red Blood Cells % 0.1 %
[2023-07-07 10:55] LABS: Basophils % (auto) 0.7 % (0.0-2.0); Eosinophils % (auto) 3.8 % (0.0-7.0); Hematocrit 22.5 % (41.0-53.0); Lymphocytes % (auto) 7.9 % (10.0-50.0); Mean Corpuscular Hemoglobin 33.2 pg (28.0-32.0); Mean Corpuscular Hgb Conc. 33.4 g/dL (32.0-36.0); Mean Corpuscular Volume 99.5 fL (80.0-100.0); Monocytes % (auto) 11.7 % (0.0-12.0); Neutrophils % (auto) 75.9 % (37.0-80.0); Red Blood Cells 2.26 10^6/uL (4.5-5.90); White Blood Cell 2.8 10^3/uL (4.4-10.8)
[2023-07-07 10:57] LABS: Red Cell Distribution Width 21.4 % (11.8-14.3)
[2023-07-07 11:26] LABS: Alanine Aminotransferase 76 U/L (7-40); Albumin 2.6 g/dL (3.2-4.8); Alkaline Phosphatase 235 U/L (46-116); Anion Gap 6 (5-15); Aspartate Aminotransferase 154 U/L (13-40); BUN/Creatinine Ratio 13.5 (10.0-20.0); Blood Urea Nitrogen 14 mg/dL (9-23); Calcium 8.3 mg/dL (8.5-10.1); Carbon Dioxide 24 mmol/L (20-30); Chloride 109 mmol/L (98-107); Glucose 161 mg/dL (74-106); Magnesium 1.6 mg/dL (1.6-2.6); Potassium 3.4 mmol/L (3.5-5.1); Sodium 139 mmol/L (136-145)
[2023-07-07 11:27] LABS: Phosphorus 2.1 mg/dL (2.4-5.1); Total Protein 5.4 g/dL (5.7-8.2)
[2023-07-07] MEDS: cefTRIAXone 2GM/50ML D5W 50 ML IV SCH (11:28)
[2023-07-07 11:54] LABS: Bilirubin, Total 8.4 mg/dL (0.2-1.0)
[2023-07-07] MEDS: LACTULOSE 20Gm/30ML SOLN PO SCH (14:52)
[2023-07-07] MEDS: POTASSIUM CHLORIDE 40 MEQ, LIDOCAINE 1% (LOCAL ANESTH.) 4 ML in SODIUM CHL 0.9% 250 ML IV ONE (14:53)
[2023-07-08] VITALS (8 sets, daily range): BP systolic 105–155; BP diastolic 71–90; PULSE 66–92; RESP 18–22; TEMP 97.6–98.7; O2SAT 94–100
[2023-07-08 08:27] LABS: Basophils # (auto) 0 10 ^3/uL (0-0.2); Eosinophils # (auto) 0.1 10 ^3/uL (0-0.8); Hemoglobin 8.1 g/dL (13.5-17.5); Lymphocytes # (auto) 0.3 10 ^3/uL (0.4-5.4); Monocytes # (auto) 0.4 10 ^3/uL (0-1.3); Red Cell Distribution Width 21.4 % (11.8-14.3); White Blood Cell 3.5 10^3/uL (4.4-10.8)
[2023-07-08 08:32] LABS: Basophils % (auto) 0.5 % (0.0-2.0); Eosinophils % (auto) 3.5 % (0.0-7.0); Hematocrit 24.4 % (41.0-53.0); Mean Corpuscular Hemoglobin 33.5 pg (28.0-32.0); Mean Corpuscular Hgb Conc. 33.2 g/dL (32.0-36.0); Mean Corpuscular Volume 100.9 fL (80.0-100.0); Monocytes % (auto) 11.3 % (0.0-12.0); Neutrophils # (auto) 2.6 10 ^3/uL (1.6-8.6); Neutrophils % (auto) 75.7 % (37.0-80.0); Nucleated Red Blood Cells % 0.1 %; Red Blood Cells 2.42 10^6/uL (4.5-5.90)
[2023-07-08 08:42] LABS: INR 1.35 (0.9-1.15); Partial Thromboplastin Time 31.3 SEC (24.5-34.5)
[2023-07-08 08:50] LABS: Alanine Aminotransferase 78 U/L (7-40); Albumin 2.8 g/dL (3.2-4.8); Alkaline Phosphatase 267 U/L (46-116); Anion Gap 6 (5-15); Aspartate Aminotransferase 136 U/L (13-40); BUN/Creatinine Ratio 10.2 (10.0-20.0); Blood Urea Nitrogen 12 mg/dL (9-23); Calcium 8.9 mg/dL (8.5-10.1); Carbon Dioxide 23 mmol/L (20-30); Chloride 113 mmol/L (98-107); Glucose 181 mg/dL (74-106); Magnesium 1.6 mg/dL (1.6-2.6); Phosphorus 2.3 mg/dL (2.4-5.1); Potassium 3.2 mmol/L (3.5-5.1); Sodium 142 mmol/L (136-145)
[2023-07-08 08:51] LABS: Bilirubin, Total 8.6 mg/dL (0.2-1.0)
[2023-07-08 09:05] LABS: Lactic Acid w/Reflex 2.1 mmol/L (0.4-2.0)
[2023-07-08] MEDS: POTASSIUM PHOSPHATE 22 MEQ in SODIUM CHL 0.9% 100 ML IV ONE (11:56)
[2023-07-08] MEDS: POTASSIUM CHLORIDE 40 MEQ, LIDOCAINE 1% (LOCAL ANESTH.) 4 ML in SODIUM CHL 0.9% 250 ML IV ONE (11:57)
[2023-07-08] MEDS: VANCOMYCIN 750mg/150ml 150 ML IV ONE (14:37)
[2023-07-08] MEDS: LIDOCAINE 1% (LOCAL ANESTH.) PF 5ml SDV ID ONE (17:00)
[2023-07-08] MEDS: FUROSEMIDE 20 MG TAB PO SCH (17:13)
[2023-07-08] MEDS: SODIUM CHLOR 0.9% PF (SALINE LOCK) 10ML VIAL/SYR IV SCH (21:09)
[2023-07-09 01:00] VITALS: BP 111/81; PULSE 69; RESP 22; TEMP 98; O2SAT 99
[2023-07-09 05:00] VITALS: BP 120/85; PULSE 96; RESP 22; TEMP 98.8; O2SAT 100
[2023-07-09 06:20] LABS: Basophils # (auto) 0 10 ^3/uL (0-0.2); Basophils % (auto) 0.7 % (0.0-2.0); Eosinophils # (auto) 0.1 10 ^3/uL (0-0.8); Eosinophils % (auto) 2.9 % (0.0-7.0); Hematocrit 22.9 % (41.0-53.0); Hemoglobin 7.6 g/dL (13.5-17.5); Lymphocytes # (auto) 0.2 10 ^3/uL (0.4-5.4); Lymphocytes % (auto) 6.6 % (10.0-50.0); Mean Corpuscular Hemoglobin 33.9 pg (28.0-32.0); Mean Corpuscular Volume 102.7 fL (80.0-100.0); Monocytes # (auto) 0.4 10 ^3/uL (0-1.3); Monocytes % (auto) 10.4 % (0.0-12.0); Neutrophils # (auto) 2.9 10 ^3/uL (1.6-8.6); Neutrophils % (auto) 79.4 % (37.0-80.0); Nucleated Red Blood Cells % 0.1 %; Red Blood Cells 2.23 10^6/uL (4.5-5.90); White Blood Cell 3.7 10^3/uL (4.4-10.8)
[2023-07-09 06:22] LABS: Red Cell Distribution Width 21.6 % (11.8-14.3)
[2023-07-09 06:35] LABS: Alanine Aminotransferase 63 U/L (7-40); Albumin 2.4 g/dL (3.2-4.8); Alkaline Phosphatase 223 U/L (46-116); Anion Gap 4 (5-15); Aspartate Aminotransferase 110 U/L (13-40); BUN/Creatinine Ratio 9.7 (10.0-20.0); Blood Urea Nitrogen 11 mg/dL (9-23); Calcium 8.6 mg/dL (8.7-10.4); Carbon Dioxide 23 mmol/L (20-30); Chloride 115 mmol/L (98-107); Glucose 183 mg/dL (74-106); Magnesium 1.6 mg/dL (1.6-2.6); Potassium 3.8 mmol/L (3.5-5.1); Sodium 142 mmol/L (136-145)
[2023-07-09 06:36] LABS: Bilirubin, Total 7.1 mg/dL (0.2-1.0); Phosphorus 2.7 mg/dL (2.4-5.1); Total Protein 5.5 g/dL (5.7-8.2)
[2023-07-09 08:00] VITALS: PULSE 86; RESP 18; O2SAT 99
[2023-07-09 08:05] VITALS: BP 133/76; PULSE 83; RESP 19; TEMP 98.5; O2SAT 99
[2023-07-09] MEDS: VANCOMYCIN 1GM/200ML 200 ML IV ONE (09:49)
[2023-07-09] MEDS ORDERED: LACT10SO3 PO (10:42)
[2023-07-09] MEDS ORDERED: SPIR25TA PO (10:42)
[2023-07-09] MEDS ORDERED: FUR20T PO (10:42)
[2023-07-09] MEDS ORDERED: RIFA550T PO (10:42)
[2023-07-09] MEDS ORDERED: ERGO1CAP23 PO (10:42)
[2023-07-09 12:15] VITALS: BP 121/63; PULSE 71; RESP 19; TEMP 98.6; O2SAT 98
[2023-07-09 13:19] VITALS: BP 111/69; PULSE 82; RESP 18; TEMP 36.9; O2SAT 99
== END 2023-07-09 15:15 | disposition home health service (06) | DRG 720 ==
LOC: EDUNIT# 16:53 → EDBD 16:53 → ER 16:53 → TELE 20:35 → TELE-EAST 06-30 22:12 → EAST 07-08 02:03
PROVIDERS: ADMIT Internal Medicine Pulmonary Disease; ATTEND Internal Medicine Pulmonary Disease
PROC: 05H933Z Insertion of Infusion Device into Right Brachial Vein, Percutaneous Approach (ICD-10-PCS; 2023-06-30)
PROC: B54MZZA Ultrasonography of Right Upper Extremity Veins, Guidance (ICD-10-PCS; 2023-06-30)
PROC: 30233R1 Transfusion of Nonautologous Platelets into Peripheral Vein, Percutaneous Approach (ICD-10-PCS; 2023-06-30)
PROC: 30233N1 Transfusion of Nonautologous Red Blood Cells into Peripheral Vein, Percutaneous Approach (ICD-10-PCS; 2023-06-30)
PROC: 0W9G3ZZ Drainage of Peritoneal Cavity, Percutaneous Approach (ICD-10-PCS; 2023-07-01)
PROC: 05HA33Z Insertion of Infusion Device into Left Brachial Vein, Percutaneous Approach (ICD-10-PCS; principal; 2023-07-03)
PROC: B54NZZA Ultrasonography of Left Upper Extremity Veins, Guidance (ICD-10-PCS; 2023-07-03)
PROC: 02HV33Z Insertion of Infusion Device into Superior Vena Cava, Percutaneous Approach (ICD-10-PCS; 2023-07-08)
PROC: B548ZZA Ultrasonography of Superior Vena Cava, Guidance (ICD-10-PCS; 2023-07-08)
DX: A41.81 Sepsis due to Enterococcus (principal); K76.7 Hepatorenal syndrome; G93.41 Metabolic encephalopathy; E43 Unspecified severe protein-calorie malnutrition; D61.818 Other pancytopenia; K72.10 Chronic hepatic failure without coma; K70.31 Alcoholic cirrhosis of liver with ascites; K62.7 Radiation proctitis; K76.6 Portal hypertension; L03.116 Cellulitis of left lower limb; I11.0 Hypertensive heart disease with heart failure; B19.20 Unspecified viral hepatitis C without hepatic coma; K70.11 Alcoholic hepatitis with ascites; E66.01 Morbid (severe) obesity due to excess calories; K76.82 Hepatic encephalopathy; L03.115 Cellulitis of right lower limb; N17.9 Acute kidney failure, unspecified; Z96.652 Presence of left artificial knee joint; I50.9 Heart failure, unspecified; F17.210 Nicotine dependence, cigarettes, uncomplicated; G89.29 Other chronic pain; D53.9 Nutritional anemia, unspecified; E11.9 Type 2 diabetes mellitus without complications; E87.6 Hypokalemia; Z68.37 Body mass index [BMI] 37.0-37.9, adult; Z85.46 Personal history of malignant neoplasm of prostate
CPT/HCPCS: 36415; 36569; 71045; 74176; 76000; 76705; 76937; 76942; 80048; 80053; 80061; 80074; 80202; 80307; 80320; 81001; 82140; 82306; 82607; 82728; 82746; 82962; 83036; 83540; 83550; 83605; 83690; 83735; 83880; 83986; 84100; 84132; 84443; 84484; 85025; 85045; 85610; 85730; 86850; 86900; 86901; 86920; 87040; 87077; 87086; 87186; 87205; 89051; 93005; 93306; 99152; 99291; C1894; C9113; G0378; J1815; J2001; J2185; J2405; J2543

== ENCOUNTER 2023-10-05 07:36 | Emergency (ER) | payer MEDICAID ==
[~2023-10-05] VITALS: Ht 177.8 cm; Wt 130.0 kg
[~2023-10-05 07:36] MED LIST changes: +ERGO1CAP23 PO; +FURO20TA4 PO; +GABA-1250 PO; +LACT10SO3 PO; +MORP30TA PO; +NEUTRA PO; +RIFA550T PO; +SODI650T PO; +SPIR25TA PO
[2023-10-05 08:48] LABS: Alanine Aminotransferase 17 U/L (7-40); Albumin 2.8 g/dL (3.2-4.8); Alkaline Phosphatase 163 U/L (46-116); Anion Gap 1 (5-15); Aspartate Aminotransferase 30 U/L (13-40); BUN/Creatinine Ratio 13.3 (10.0-20.0); Bilirubin, Total 2.1 mg/dL (0.2-1.0); Blood Alcohol < 3.0 mg/dL (<10); Blood Urea Nitrogen 14 mg/dL (9-23); Calcium 9.2 mg/dL (8.7-10.4); Carbon Dioxide 24 mmol/L (20-30); Chloride 120 mmol/L (98-107); Glucose 146 mg/dL (74-106); Potassium 4.2 mmol/L (3.5-5.1); Sodium 145 mmol/L (136-145)
[2023-10-05 08:54] LABS: Basophils # (auto) 0 10 ^3/uL (0-0.2); Basophils % (auto) 0.3 % (0.0-2.0); Eosinophils # (auto) 0.1 10 ^3/uL (0-0.8); Eosinophils % (auto) 2.8 % (0.0-7.0); Hematocrit 28.7 % (41.0-53.0); Hemoglobin 9.3 g/dL (13.5-17.5); Lymphocytes # (auto) 0.4 10 ^3/uL (0.4-5.4); Mean Corpuscular Hemoglobin 30.3 pg (28.0-32.0); Mean Corpuscular Hgb Conc. 32.5 g/dL (32.0-36.0); Mean Corpuscular Volume 93.1 fL (80.0-100.0); Monocytes # (auto) 0.4 10 ^3/uL (0-1.3); Neutrophils # (auto) 2.2 10 ^3/uL (1.6-8.6); Neutrophils % (auto) 71.9 % (37.0-80.0); Nucleated Red Blood Cells % 0.2 %; Platelet Count (auto) 69 10^3/uL (140-450); Red Blood Cells 3.08 10^6/uL (4.5-5.90); Red Cell Distribution Width 17.4 % (11.8-14.3)
[2023-10-05 09:38] LABS: Base Excess -2.1 mmol/L (-2.0-2.0)
[2023-10-05 10:10] LABS: COVID19 ANTIGEN SOFIA FIA NEGATIVE (NEGATIVE)
[2023-10-05 11:38] LABS: Ovalocytes FEW; Platelet Estimate Decreased
[2023-10-05] MEDS: LORazepam 2MG/ML-1ML VIAL ONE (12:39)
[2023-10-05] MEDS: LACTULOSE 10g/15ml SOLN 473ML PR ONE (12:39)
[2023-10-05 12:47] VITALS: PULSE 88; RESP 18; O2SAT 98
[2023-10-05] MEDS: LORazepam 2MG/ML-1ML VIAL IV ONE (16:56)
[2023-10-05 20:00] VITALS: PULSE 75; RESP 18; O2SAT 100
[2023-10-06 03:37] VITALS: PULSE 84; RESP 24; O2SAT 100
[2023-10-06 04:39] VITALS: BP 150/86; PULSE 81; RESP 24; TEMP 98.4; O2SAT 100
== END 2023-10-06 04:45 | disposition short-term general hospital (02) ==
LOC: EDBD 07:36 → ER 07:36
DX: R41.82 Altered mental status, unspecified (principal); K76.82 Hepatic encephalopathy; I50.9 Heart failure, unspecified; Z79.899 Other long term (current) drug therapy; Z98.890 Other specified postprocedural states
CPT/HCPCS: 36415; 36600; 70450; 71045; 74176; 80053; 80320; 82140; 82805; 83605; 85025; 87040; 87426; 93005; 96374; 99291; J2060; 96376

== ENCOUNTER 2024-05-06 15:54 | Inpatient (IN) | payer MEDICAID ==
[~2024-05-06] VITALS: Ht 185.4 cm; Wt 113.1 kg
--- NOTE | 2024-05-06 16:08 | ED.PDOC ---
History of Present Illness HPI Comments 63Y M with PMHx DM, CHF, and liver cirrhosis presents to ED for chief complaint overdose. Per EMS, found pt gurgling and unresponsive in a car. Upon EMS arrival, pt was given Narcan and woke up. Pt denies taking any drugs and does not know what happened. No other symptoms reported. vital signs were stable at arrival. Chief Complaint: Overdose Time Seen by MD: 16:00 Primary Care Provider: UNKNOWN Reviewed Notes: Nurses Notes, [employer] Setter Notes, Medications, Allergies Allergies: Coded Allergies: NO KNOWN ALLERGIES (Unverified , 09/25/21) Home Meds Active Scripts Spironolactone (Aldactone) 25 Mg Tab, 50 MG PO DAILY for 30 Days, #60 TAB Prov:JANETT SILVERMAN [facility] 07/09/23 Rifaximin (Xifaxan) 550 Mg Tab, 550 MG PO BID for 30 Days, #60 TAB Prov:JANETT SILVERMAN 07/09/23 Furosemide (Furosemide) 20 Mg Tab, 60 MG PO BIDD for 30 Days, #180 TAB Prov:JANETT SILVERMAN [facility] 07/09/23 Lactulose (Lactulose) 10 Gm/15 Ml Trista, 30 ML PO Q2HR for 30 Days, #30 ML Prov:JANETT SILVERMAN [facility] 07/09/23 Ergocalciferol (VITAMIN D 23782 UNIT) 50,000 [place], [address] UNIT PO Q7D for 30 Days, #10 CAP Prov:JANETT SILVERMAN 07/09/23 Insulin Glargine (Lantus) 100 Unit/Ml Inj, 15 UNITS SC BID@1000,2200, #10 INJ Prov:ADEOLA OROPEZA MD 10/03/21 Reported Medications Sodium Bicarbonate (Sodium Bicarbonate) 650 Mg Tab, PO 06/30/23 Pot Phosphate Dibasic & Monoba (Neutra-Phos) 1 Tab Tb, PO 06/30/23 Gabapentin (Gabapentin) 300 Mg Cap, 1 CAP PO Q8H 06/30/23 Morphine Sulfate (Morphine Sulfate) 30 Mg Tab, 1 TAB PO TID 06/30/23 Information Source: Patient, Emergency Med Personnel Mode of Arrival: EMS Severity: Mild Timing: Minutes Duration: Minutes Prehospital treatment: 12 Lead EKG Past Medical History PAST MEDICAL HISTORY: Cancer, CHF, DM, Liver, UTI'S Surgical History: Hernia Repair Family History Family History: Reviewed,noncontributory to illness, No family hx of Cancer, No family hx of DM, No family hx of Heart nav, No family hx of HTN, No family hx ofKidney nav, No family hx of Liver nav, No family hx of Lung nav, No family hx of Stroke Social History Smoker: Cigarettes, Less Than 1 Pack/Day Alcohol: Denies ETOH Use Drugs: Denies Drug Use Lives In: Home Constitutional: reports: weakness; denies: chills, diaphoresis, fatigue, fever, malaise, sweats, others EENTM: denies: blurred vision, double vision, ear bleeding, ear discharge, ear drainage, ear pain, ear ringing, eye pain, eye redness, hearing loss, mouth pain, mouth swelling, nasal discharge, nose bleeding, nose congestion, nose pain, photophobia, tearing, throat pain, throat swelling, voice changes, others Respiratory: denies: cough, hemoptysis, orthopnea, SOB at rest, shortness of breath, SOB with excertion, stridor, wheezing, others Cardiovascular: denies: chest pain, dizzy spells, diaphoresis, Dyspnea on exertion, edema, irregular heart beat, left arm pain, lightheadedness, palpitations, PND, syncope, others Gastrointestinal: denies: abdomen distended, abdominal pain, blood streaked bowels, constipated, diarrhea, dysphagia, difficulty swallowing, hematemesis, melena, nausea, poor appetite, poor fluid intake, rectal bleeding, rectal pain, vomiting, others Genitourinary: denies: burning, dysuria, flank pain, frequency, hematuria, incontinence, penile discharge, penile sore, pain, testicle pain, testicle swelling, urgency, others Neurological: denies: dizziness, fainting, headache, left sided numbness, left sided weakness, numbness, paresthesia, pre-existing deficit, right sided numbness, right sided weakness, seizure, speech problems, tingling, tremors, weakness, others Musculoskeletal: denies: back pain, gout, joint pain, joint swelling, muscle p ain, muscle stiffness, neck pain, others Integumetry: denies: bruises, change in color, change in hair/nails, dryness, laceration, lesions, lumps, rash, wounds, others Allergic/Immunocompromised: denies: Difficulty Healing, Frequent Infections, Hives, Itching, others Hematologic/Lymphatic: denies: anemia, blood clots, easy bleeding, easy bruising, swollen glands, others Endocrine: denies: excessive hunger, excessive sweating, excessive thirst, excessive urination, flushing, intolerance to cold, intolerance to heat, unexplained weight gain, unexplained weight loss, others Psychiatric: denies: anxiety, bipolar disorder, depression, hopeless, panic disorder, schizophrenia, sleepless, suicidal, others Unable to Obtain due to: Altered Mental Status All Other Systems: Reviewed and Negative Physical Exam Exam Comments Patient is not well kempt and dirty at time of evaluation. General Appearance: No Apparent Distress (Patient denies any concerning complaints at time of evaluation.), Normal HEENT: Normal ENT Inspection, Pharynx Normal, TMs Normal Neck: Full Range of Motion, Non-Tender, Normal, Normal Inspection Respiratory: Chest Non-Tender, Lungs Clear, No Accessory Muscle Use, No Respiratory Distress, Normal Breath Sounds Cardiovascular: No Edema, No JVD, No Murmur, No Gallop, Normal Peripheral Pulses, Regular Rate/Rhythm Breast Exam: Deferred Gastrointestinal: No Pulsatile Mass, Normal Bowel Sounds, Soft Genitalia: Deferred Pelvic: Deferred Rectal: Deferred Extremities: Normal capillary refill, No pedal edema Musculoskeletal : Apperance: Normal Neurologic: Alert, No Sensory Deficits Cerebellar Function: Normal Reflexes: Normal Skin: Dry, Normal Color, Warm Lymphatic: No Adenopathy Was a procedure done? Was a procedure done?: No Differential Dx Considerations may include: drug overdose, acute coronary event, anemia, sepsis, electrolyte abnormality, drug abuse X-Ray, Labs, Meds, VS Vital Signs Date Time Temp Pulse Resp B/P (MAP) Pulse Ox O2 Delivery O2 Flow Rate FiO2 05/06/24 19:25 80 18 114/62 (79) 98 05/06/24 19:25 80 18 98 Room Air* 0 21 05/06/24 18:15 83 14 91/58 (69) 94 05/06/24 18:05 84 05/06/24 17:00 86 05/06/24 16:30 97.3 90 12 111/35 (60) 97 97.3 05/06/24 16:30 90 12 97 Room Air* 0 21 05/06/24 15:58 98.3 91 16 123/75 (91) 98 98.3 Lab Test 05/06/24 19:33 05/06/24 18:58 05/06/24 17:20 Range/Units POC Glucose 107 H 70-106 mg/dl Troponin I High Sensitivity 548 *H 450 *H </=54 ng/L White Blood Count 5.4 4.4-10.8 10^3/uL Red Blood Count 3.27 L 4.5-5.90 10^6/uL Hemoglobin 9.7 L 13.5-17.5 g/dL Hematocrit 32.2 L 41.0-53.0 % Mean Corpuscular Volume 98.5 80.0-100.0 fL Mean Corpuscular Hemoglobin 29.8 28.0-32.0 pg Mean Corpuscular Hemoglobin Concent 30.2 L 32.0-36.0 g/dL Red Cell Distribution Width 20.5 H 11.8-14.3 % Platelet Count 88 L 140-450 10^3/uL Mean Platelet Volume 10.1 6.9-10.8 fL Neutrophils (%) (Auto) 83.6 H 37.0-80.0 % Lymphocytes (%) (Auto) 5.9 L 10.0-50.0 % Monocytes (%) (Auto) 10.1 0.0-12.0 % Eosinophils (%) (Auto) 0.2 0.0-7.0 % Basophils (%) (Auto) 0.2 0.0-2.0 % Neutrophils # (Auto) 4.5 1.6-8.6 10 ^3/uL Lymphocytes # (Auto) 0.3 L 0.4-5.4 10 ^3/uL Monocytes # (Auto) 0.5 0-1.3 10 ^3/uL Eosinophils # (Auto) 0 0-0.8 10 ^3/uL Basophils # (Auto) 0 0-0.2 10 ^3/uL Nucleated Red Blood Cells 0.3 % Sodium Level 141 136-145 mmol/L Potassium Level 4.9 3.5-5.1 mmol/L Chloride Level 112 H 98-107 mmol/L Carbon Dioxide Level 20 20-31 mmol/L Anion Gap 9 5-15 Blood Urea Nitrogen 23 9-23 mg/dL Creatinine 1.73 H 0.700-1.30 mg/dL Glomerular Filtration Rate Calc 44 >90 mL/min BUN/Creatinine Ratio 13.3 10.0-20.0 Serum Glucose 112 H 74-106 mg/dL Calcium Level 9.3 8.7-10.4 mg/dL Total Bilirubin 6.0 H 0.2-1.0 mg/dL Aspartate Amino Transferase (AST) 105 H 13-40 U/L Alanine Aminotransferase (ALT) 65 H 7-40 U/L Alkaline Phosphatase 287 H 46-116 U/L Total Protein 6.8 5.7-8.2 g/dL Albumin 3.3 3.2-4.8 g/dL Plasma/Serum Blood Alcohol < 3.0 <10 mg/dL Current Medications Medications (Trade) Dose Ordered Sig/Kenisha Route Start Time Stop Time Status Last Admin Naloxone HCl (Narcan) 0.4 mg ONCE ONCE IM 05/06/24 17:15 05/06/24 17:16 DC 05/06/24 17:19 [place] [id number] Ph: [phone] DIAGNOSTIC IMAGING Diagnostic Imaging Report : [id number] Signed PATIENT: AISHA CARDOZO ACCT: [id number] UNIT: [id number] : 1960 LOC: ER ROOM / BED: / AGE / SEX: 63 / M ADM STATUS: REG ER SERVICE ORDERING PHYSICIAN: JEROMY PATEL PAC PROCEDURE(s): CXRP - CHEST PORTABLE REASON: SHORTNESS OF BREATH ORDER NUMBER(s): [id number], ACCESSION NUMBER(s): [id number] CHEST RADIOGRAPH Indication: SHORTNESS OF BREATH Technique: Single frontal view of the chest was obtained Comparison: XY CHEST PORTABLE on DOS: 10/05/23, XY CHEST XRAY 1 VIEW on DOS: 07/09/23, XY CHEST PORTABLE on DOS: 07/08/23 FINDINGS: Lines and Tubes: Right upper extremity PICC terminating within the proximal right atrium. Lungs: No focal consolidation. Diffuse interstitial prominence. Pleura: No effusion. No pneumothorax. Cardiomediastinal contours: Zigw-[id number] cardiomegaly with image rotation to the right. Bones: No acute osseous abnormality. IMPRESSION: Cardiomegaly with pulmonary vascular congestion. Right upper extremity PICC terminating within the proximal right atrium. ATED BY: JUNE HINES DO DICTATED DATE/TIME: 05/06/241721 SIGNED BY: JUNE HINES DO SIGNED DATE/TIME: 05/06/241721 CC: X-Ray, Labs, Meds, VS Comment CT of abdomen and pelvis was pending at time of this note. Laboratories revealed a large transaminitis state as well as anemia and significantly elevated troponin. EKG was remarkable for a sinus arrhythmia with a rate of 84. Abnormal R-wave progression and borderline prolonged QT interval. CO interval 152 and QT interval of 407. Chest x-ray revealed a cardiomegaly with pulmonary vascular congestion as well as a right upper extremity PICC line terminating within the proximal right atrium. Patient will be admitted for cardiac evaluation to address his elevated troponins concerns and CT will be evaluated once returned. Time of 1ST Reevaluation: 21:12 Reevaluation 1ST: Improved Consultation: PCP Patient Education/Counseling: Diagnosis, Treatment Family Education/Counseling: Diagnosis, Treatment, No Family Present Departure 1 Departure Time of Disposition: 21:13 Impression: Primary Impression: Altered mental status Additional Impressions: Elevated troponin I level Transaminitis Anemia Drug abuse Disposition: ADMITTED INPATIENT Condition: Fair Discharged With: Self Critical Care Note Critical Care Time?: No Stability Stability form required: No Heart Score Heart Score: Heart Score Response (Comments) Value History Slightly Suspicious 0 EKG Repolarization Disturb 1 Age 45-64 1 Risk Factors 1 or 2 risk factors 1 Troponin >3 x's Normal limit 2 Total 5 I personally scribed for JERMOY PATEL PAC ([employer]) on 05/06/24 at 16:08. Electronically submitted by Eliana Thornton ([employer]). I personally scribed for JEROMY PATEL PAC ([employer]) on 05/06/24 at 17:30. Abena ctronically submitted by Eliana Thornton ([email or web address]). JEROMY PATEL PAC May 06, 2024 16:08
[2024-05-06 16:30] VITALS: PULSE 90; RESP 12; O2SAT 97
[2024-05-06] MEDS: NALOXONE HCL 0.4 MG/ML VIAL IM ONE (17:19)
--- NOTE | 2024-05-06 17:25 | DVH ---
CHEST RADIOGRAPH Indication: SHORTNESS OF BREATH Technique: Single frontal view of the chest was obtained Comparison: XY CHEST PORTABLE on DOS: 10/05/23, XY CHEST XRAY 1 VIEW on DOS: 07/09/23, XY CHEST PORTABL E on DOS: 07/08/23 FINDINGS: Lines and Tubes: Right upper extremity PICC terminating within the proximal right atrium. Lungs: No focal consolidation. Diffuse interstitial prominence. Pleura: No effusion. No pneumothorax. Cardiomediastinal contours: Igar-yw-xkyrgufo cardiomegaly with image rotation to the right. Bones: No acute osseous abnormality. IMPRESSION: Cardiomegaly with pulmonary vascular congestion. Right upper extremity PICC terminating within the proximal right atrium.
[2024-05-06 17:45] LABS: Basophils # (auto) 0 10 ^3/uL (0-0.2); Basophils % (auto) 0.2 % (0.0-2.0); Eosinophils # (auto) 0 10 ^3/uL (0-0.8); Eosinophils % (auto) 0.2 % (0.0-7.0); Hematocrit 32.2 % (41.0-53.0); Hemoglobin 9.7 g/dL (13.5-17.5); Lymphocytes # (auto) 0.3 10 ^3/uL (0.4-5.4); Lymphocytes % (auto) 5.9 % (10.0-50.0); Mean Corpuscular Hemoglobin 29.8 pg (28.0-32.0); Mean Corpuscular Hgb Conc. 30.2 g/dL (32.0-36.0); Mean Corpuscular Volume 98.5 fL (80.0-100.0); Monocytes # (auto) 0.5 10 ^3/uL (0-1.3); Monocytes % (auto) 10.1 % (0.0-12.0); Neutrophils # (auto) 4.5 10 ^3/uL (1.6-8.6); Neutrophils % (auto) 83.6 % (37.0-80.0); Nucleated Red Blood Cells % 0.3 %; Platelet Count (auto) 88 10^3/uL (140-450); Red Blood Cells 3.27 10^6/uL (4.5-5.90); Red Cell Distribution Width 20.5 % (11.8-14.3); White Blood Cell 5.4 10^3/uL (4.4-10.8)
[2024-05-06 17:52] LABS: Anion Gap 9 (5-15); BUN/Creatinine Ratio 13.3 (10.0-20.0); Calcium 9.3 mg/dL (8.7-10.4); Potassium 4.9 mmol/L (3.5-5.1); Sodium 141 mmol/L (136-145); Total Protein 6.8 g/dL (5.7-8.2)
[2024-05-06 17:53] LABS: Albumin 3.3 g/dL (3.2-4.8)
[2024-05-06 17:54] LABS: Alanine Aminotransferase 65 U/L (7-40); Alkaline Phosphatase 287 U/L (46-116); Aspartate Aminotransferase 105 U/L (13-40); Blood Alcohol < 3.0 mg/dL (<10); Blood Urea Nitrogen 23 mg/dL (9-23); Carbon Dioxide 20 mmol/L (20-31); Chloride 112 mmol/L (98-107); Glucose 112 mg/dL (74-106)
--- NOTE | 2024-05-06 19:01 | ECG ---
[facility] Test Date: 2024-05-06 Test Time: 18:05:56 Pat Name: AISHA CARDOZO Department: ED Room: [address] [place] [address] Gender: M Tray Server: [id number] : 1960 Requested By: JEROMY PATEL Order Number: [id number] Reading MD: Luis Roberson Measurements Intervals [place] Rate: 84 P: 41 UT: 152 QRS: 48 QRSD: 90 T: 47 QT: 407 QTc: 482 Interpretive Statements Sinus arrhythmia Abnormal R-wave progression, early transition Borderline prolonged QT interval Electronically Signed On 05-07-2024 17:45:59 PDT by Luis Roberson Please click the below link to view image of tracing.
[2024-05-06 19:25] VITALS: PULSE 80; RESP 18; O2SAT 98
[2024-05-06] MEDS ORDERED: HYDROcodone-ACET 5/325MG TAB PO PRN (22:15)
[2024-05-06] MEDS ORDERED: IBUPROFEN 600 MG TAB PO PRN (22:15)
[2024-05-06] MEDS ORDERED: DOCUSATE SOD 100 MG CAP PO PRN (22:15)
[2024-05-06] MEDS ORDERED: DEXTROSE (50%) 50ML SYRG IV PRN (22:15)
[2024-05-06] MEDS ORDERED: MORPHINE SULFATE INJ 2 MG/ml SYRG IV PRN ×2 (22:15→23:15)
[2024-05-06] MEDS: ASPirin 81 mg TAB PO ONE (22:48)
[2024-05-06] MEDS ORDERED: NITROGLYCERIN 0.4 MG SL TAB SL PRN (23:15)
--- NOTE | 2024-05-06 23:15 | DVHHP2 ---
History of Present Illness Reason for Visit: Altered mental status History of Present Illness The patient is a 63-year-old male unkempt with past medical history of liver cirrhosis, CHF, DM, UTIs, and cancer who presented to [facility] ED for evaluation drug overdose. Patient's reports he was found gurgling and unresponsive in a car so EMS were called. When EMS arrived on the scene, the patient was given Narcan and woke up, but unable to recall what happened. Patient was seen and evaluated in the ED, laboratory data shows WBC 5.4, hemoglobin 9.7, hematocrit 32.2, platelets 88,000, sodium 141, potassium 4.9, BUN 23, creatinine 1.73, GFR 44, glucose 112, AST 105, ALT 65, troponin 454, a mmonia 84. Urinalysis positive for urinary tract infection. Chest x-ray revealing cardiomegaly with pulmonary vascular congestion. Patient was started on IV antibiotic regimen Rocephin, please see medication orders section in the computer. On my assessment, patient denied chest pain, no headache, no dizziness, no diaphoresis, no shortness of breaths, no abdominal pain, no diarrhea, no nausea, no vomiting, no fever, no chills. Patient was admitted for further evaluation and medical management. Past Medical History Cancer, CHF, DM, Liver, UTI'S Past Surgical History Hernia Repair Family History Reviewed, noncontributory to the management of this case. Past Social History The patient lives at home, smokes cigarettes less than 1 pack per day, denies alcohol or illicit drugs abuse. Review of Systems Constitutional: Yes: Weakness; No: Fever, Chills, Sweats, Malaise, Other Eyes: No: Pain, Vision change, Conjunctivae inflammation, Eyelid inflammation, Other, Redness ENT: No: Ear pain, Ear discharge, Nose pain, Nose discharge, Nose congestion, Mouth pain, Mouth swelling, Throat pain, Throat swelling, Other Respiratory: No: Cough, Dry, Shortness of breath, SOB with excertion, Wheezing, Hemoptysis, Pleuritic Pain, Sputum, Wheezing, Other Cardiovascular: No: Chest Pain, Palpitations, Orthopnea, Paroxysmal Noc. Dyspnea, Edema, Lt Headedness, Other Gastrointestinal: No: Nausea, Vomiting, Abdominal Pain, Diarrhea, Constipation, Melena, Hematochezia, Other Genitourinary: No Dysuria, No Frequency, No Incontinence, No Hematuria, No Retention, No Other Musculoskeletal: No: other, neck pain, shoulder pain, arm pain, back pain, hand pain, leg pain, foot pain Skin: No: Rash, Lesions, Jaundice, Bruising, Other Neurological: Other (Altered level of consciousness); No: Weakness, Numbness, Incoordination, Change in speech, Confusion, Seizures Allergies: Coded Allergies: NO KNOWN ALLERGIES (Unverified , 09/25/21) Medications Current Medications Medications Dose Ordered Sig/Kenisha Route Start Time Stop Time Status Last Admin Dose Admin Aspirin 81 mg DAILY PO 05/07/24 10:00 Spironolactone 25 mg DAILY PO 05/07/24 10:00 Lactulose 30 ml DAILY PO 05/07/24 10:00 Diagnostic Test (Pha) 1 strip ACHS 05/07/24 07:00 Insulin Human Regular ACHS SC 05/07/24 07:00 Dextrose 50 ml UD PRN IV 05/06/24 22:15 Sodium Chloride 10 ml Q8HR IV 05/07/24 06:00 Acetaminophen/ Hydrocodone Bitart 1 tab Q4HP PRN PO 05/06/24 22:15 Ondansetron HCl 4 mg Q4HP PRN IV 05/06/24 22:15 Docusate Sodium 100 mg BIDPRN PRN PO 05/06/24 22:15 Morphine Sulfate 2 mg Q4HPRN PRN IV 05/06/24 22:15 Ibuprofen 600 mg Q6HP PRN PO 05/06/24 22:15 Gabapentin 300 mg TID PO 05/07/24 06:00 Exam Vital Signs Vital Signs Date Time Temp Pulse Resp B/P (MAP) Pulse Ox O2 Delivery O2 Flow Rate FiO2 05/06/24 19:25 80 18 114/62 (79) 98 05/06/24 19:25 Room Air* 0 21 05/06/24 16:30 97.3 97.3 General Appearance: Alert, Oriented X3, Cooperative, No acute distress HEENT: Atraumatic, PERRLA, EOMI, Mucous membr. moist/pink Respiratory: Normal air movement, Other (Congestion) Cardiovascular: Regular rate, Normal S1, Normal S2, No murmurs Abdominal: Normal bowel sounds, Soft, No tenderness, No hepatospenomegaly, No masses Extremities: No clubbing, No cyanosis, No edema, Normal pulses, No tenderness/swelling Skin: No rashes, No breakdown, No significant lesion Neuro: Normal speech, Normal tone, Sensation intact, Cranial nerves 3-12 NL, Reflexes 2+, Other (Generalized weakness) Psych/Mental Status: Mood NL, Other (Altered mental status) Labs/Xrays Labs Test 05/06/24 21:02 05/06/24 19:33 05/06/24 17:20 Range/Units Troponin I High Sensitivity 454 *H </=54 ng/L POC Glucose 107 H 70-106 mg/dl White Blood Count 5.4 4.4-10.8 10^3/uL Red Blood Count 3.27 L 4.5-5.90 10^6/uL Hemoglobin 9.7 L 13.5-17.5 g/dL Hematocrit 32.2 L 41.0-53.0 % Mean Corpuscular Volume 98.5 80.0-100.0 fL Mean Corpuscular Hemoglobin 29.8 28.0-32.0 pg Mean Corpuscular Hemoglobin Concent 30.2 L 32.0-36.0 g/dL Red Cell Distribution Width 20.5 H 11.8-14.3 % Platelet Count 88 L 140-450 10^3/uL Mean Platelet Volume 10.1 6.9-10.8 fL Neutrophils (%) (Auto) 83.6 H 37.0-80.0 % Lymphocytes (%) (Auto) 5.9 L 10.0-50.0 % Monocytes (%) (Auto) 10.1 0.0-12.0 % Eosinophils (%) (Auto) 0.2 0.0-7.0 % Basophils (%) (Auto) 0.2 0.0-2.0 % Neutrophils # (Auto) 4.5 1.6-8.6 10 ^3/uL Lymphocytes # (Auto) 0.3 L 0.4-5.4 10 ^3/uL Monocytes # (Auto) 0.5 0-1.3 10 ^3/uL Eosinophils # (Auto) 0 0-0.8 10 ^3/uL Basophils # (Auto) 0 0-0.2 10 ^3/uL Nucleated Red Blood Cells 0.3 % Sodium Level 141 136-145 mmol/L Potassium Level 4.9 3.5-5.1 mmol/L Chloride Level 112 H 98-107 mmol/L Carbon Dioxide Level 20 20-31 mmol/L Anion Gap 9 5-15 Blood Urea Nitrogen 23 9-23 mg/dL Creatinine 1.73 H 0.700-1.30 mg/dL Glomerular Filtration Rate Calc 44 >90 mL/min BUN/Creatinine Ratio 13.3 10.0-20.0 Serum Glucose 112 H 74-106 mg/dL Calcium Level 9.3 8.7-10.4 mg/dL Total Bilirubin 6.0 H 0.2-1.0 mg/dL Aspartate Amino Transferase (AST) 105 H 13-40 U/L Alanine Aminotransferase (ALT) 65 H 7-40 U/L Alkaline Phosphatase 287 H 46-116 U/L Total Protein 6.8 5.7-8.2 g/dL Albumin 3.3 3.2-4.8 g/dL Plasma/Serum Blood Alcohol < 3.0 <10 mg/dL PATIENT: AISHA CARDOZO ACCT: [id number] UNIT: [id number] : 1960 LOC: OVERFLOW ROOM / BED: [address] [place] [address] AGE / SEX: 63 / M ADM STATUS: ADM IN SERVICE 04 ORDERING PHYSICIAN: JEROMY PATEL PAC PROCEDURE(s): ABPL - CT AB PEL WO CON-NO ORAL OR IV REASON: Transaminitis ORDER NUMBER(s): [id number], ACCESSION NUMBER(s): [id number] Exam: CT CT AB PEL WO CON-NO ORAL OR IV History: Transaminitis Comparison Study: CT CT AB PEL WO CON-NO ORAL OR IV on DOS: 10/05/23, CT CT AB PEL WO CON-NO ORAL OR IV on DOS: 06/29/23, CT CT AB PEL WO CON-NO ORAL OR IV on DOS: 07/13/22 Technique: Multidetector spiral CT of the abdomen was performed from lung bases to pubic symphysis. Imaging was performed without IV contrast. Axial, coronal and sagittal multiplanar reformats were obtained from the axial data set by the technologist. Radiation Dose: 1. Abdomen/Pelvis: CTDIvol 24.4 mGy, DLP 1662 mGy*cm. Findings: Evaluation of solid organs is limited due to lack of intravenous contrast use. Lung Bases: No acute or significant lung base finding. Normal heart size. No pleural or pericardial effusion. Liver: Cirrhotic liver Tips stent is noted Gallbladder and Biliary Tree: Unremarkable Spleen: Splenomegaly measuring up 13 cm. Pancreas: The pancreas is grossly normal in appearance. Stable 1.7 cm cyst in the pancreas. Adrenal Glands: Unremarkable Kidneys: Kidneys are grossly normal without calculi or hydronephrosis. Bladder: Grossly unremarkable for degree of distention. Bowel: The stomach is grossly normal in appearance. Small bowel and colon are normal in caliber and distribution. The appendix is not visualized; however, no secondary findings of acute appendicitis identified. Ascites: Trace abdominopelvic ascites. Peritoneal drainage catheter is seen in the right lower quadrant. Lymphadenopathy: No mesenteric, retroperitoneal or periportal lymphadenopathy. Abdominal Wall and Mesentery: Ventral hernia seen in the lower abdomen containing multiple loops of nonobstruc delgado small-bowel. Vasculature: The visualized abdominal aorta is normal in size and caliber. Evaluation of abdominal and pelvic vessels is limited due to lack of intravenous contrast. Pelvic Organs: Unremarkable Musculoskeletal: No aggressive focal bony lesions, acute fractures or dislocation. IMPRESSION: 1. No acute findings identified. 2. Ventral hernia seen in the lower abdomen containing multiple loops of nonobstructed small-bowel. 3. Cirrhotic liver. 4. Splenomegaly. 5. Trace abdominopelvic ascites. ORDERING PHYSICIAN: JEROMY PATEL PAC PROCEDURE(s): CXRP - CHEST PORTABLE REASON: SHORTNESS OF BREATH ORDER NUMBER(s): [id number], ACCESSION NUMBER(s): [id number] CHEST RADIOGRAPH Indication: SHORTNESS OF BREATH Technique: Single frontal view of the chest was obtained Comparison: XY CHEST PORTABLE on DOS: 10/05/23, XY CHEST XRAY 1 VIEW on DOS: 07/09/23, XY CHEST PORTABLE on DOS: 07/08/23 FINDINGS: Lines and Tubes: Right upper extremity PICC terminating within the proximal right atrium. Lungs: No focal consolidation. Diffuse interstitial prominence. Pleura: No effusion. No pneumothorax. Cardiomediastinal contours: [id number] cardiomegaly with image rotation to the right. Bones: No acute osseous abnormality. IMPRESSION: Cardiomegaly with pulmonary vascular congestion. Right upper extremity PICC terminating within the proximal right atrium. Assessment/Plan Assessment/Plan Altered mental status Drug abuse Elevated troponin I level Transaminitis Hepatic encephalopathy Urinary tract infection Anemia, unspecified Generalized weakness Pulmonary vascular congestion Plan 1. Admit to telemetry unit 2. Breathing treatment 3. Pain control management 4. IV antibiotic management 5. Management of fluids and electrolytes 6. Consultation for Cardiology 7. Diagnostic test chest x-ray 8. DVT prophylaxis-on SCDs 9. Repeat labs CBC, CMP in a.m. 10. Home medication reviewed and reconciled 11. Continue with current medical management 12. Treatment plan discussed with patient and RN. Patient verbalized understanding. Plan discussed with: Patient, Other (RN) My Orders Orders - APOLLO LEONARD DNP Procedure Category Date Status Time Aspirin Tablet PHA 05/07/24 In Process 10:00 Spironolactone PHA 05/07/24 In Process (Aldactone) 10:00 Lactulose Oral PHA 05/07/24 In Process 10:00 Type And Screen BBK 05/06/24 Logged 22:09 Consistent DIET 05/07/24 Transmitted Carb(Ccho)Diabetes Breakfast Glucose Blood PHA 05/07/24 In Process (Accu-Chek Comfort 07:00 Insulin R (Human) PHA 05/07/24 In Process (Insulin R) 07:00 Dextrose 50% Syringe PHA 05/06/24 In Process 22:15 Allergies ANTHONY 05/06/24 In Process 22:09 Code Status CODE 05/06/24 Transmitted 22:09 Sodium Chloride Lock PHA 05/07/24 In Process (Saline Lock Ns) 06:00 Oxygen Per Hour RT 05/06/24 Transmitted 22:09 Hydrocodone-Acet PHA 05/06/24 In Process 5/325mg Tab ([place] 22:15 Ondansetron Hcl PHA 05/06/24 In Process (Zofran) 22:15 Docusate Sodium PHA 05/06/24 In Process Capsule ([place]ace 22:15 Fall Risk Precautions ANTHONY 05/06/[address] 22:09 Complete Blood Count LAB 05/07/24 Verified 04:00 Comprehensive LAB 05/07/24 Verified Metabolic Panel 04:00 Condition: Serious ANTHONY 05/06/24 In Process 22:09 Morphine Sulfate PHA 05/06/24 In Process Injection 22:15 Sequential ANTHONY 05/06/24 In Process Compression Device Ibuprofen Tablet PHA 05/06/24 In Process (Motrin Tablet) 22:15 Gabapentin Capsule PHA 05/07/24 In Process (Neurontin Capsule) 06:00 Problem List: (1) Altered mental status (2) Drug abuse (3) Elevated troponin I level (4) Transaminitis (5) Hepatic encephalopathy (6) Anemia, unspecified (7) Urinary tract infection (8) Generalized weakness (9) Pulmonary vascular congestion Date of Service: May 07, 2024 Billing Provider: APOLLO LEONARD DNP Common Visit Codes: 74770-[id number] INP/OBS CARE (HIGH) APOLLO LEONARD DNP May 06, 2024 23:15
[2024-05-07] VITALS (45 sets, daily range): BP systolic 111–159; BP diastolic 43–114; PULSE 81–137; RESP 8–22; TEMP 97.9–99.1; O2SAT 87–99
[2024-05-07] MEDS: FLUMAZENIL 0.1 MG/ML INJ 10ML MDV IV ONE (00:20)
--- NOTE | 2024-05-07 00:28 | DVH ---
Exam: CT CT AB PEL WO CON-NO ORAL OR IV History: Transaminitis Comparison Study: CT CT AB PEL WO CON-NO ORAL OR IV on DOS: 10/05/23, CT CT AB PEL WO CON-NO ORAL OR IV on DOS: 06/29/23, CT CT AB PEL WO CON-NO ORAL OR IV on DOS: 07/13/22 Technique: Multidetector spiral CT of the abdomen was performed from lung bases to pubic symphysis. Imaging was performed without IV contrast. Axial, coronal and sagittal multiplanar reformats were ob tained from the axial data set by the technologist. Radiation Dose : 1. Abdomen/Pelvis: CTDIvol 24.4 mGy, DLP 1662 mGy*cm. Findings: Evaluation of solid organs is limited due to lack of intravenous contrast use. Lung Bases: No acute or significant lung base finding. Normal heart size. No pleural or pericardial effusion. Liver: Cirrhotic liver Tips stent is noted Gallbladder and Biliary Tree: Unremarkable Spleen: Splenomegaly measuring up 13 cm. Pancreas: The pancreas is grossly normal in appearance. Stable 1.7 cm cyst in the pancreas. Adrenal Glands: Unremarkable Kidneys: Kidneys are grossly normal without calculi or hydronephrosis. Bladder: Grossly unremarkable for degree of distention. Bowel: The stomach is grossly normal in appearance. Small bowel and colon are normal in caliber and d istribution. The appendix is not visualized; however, no secondary findings of acute appendicitis id entified. Ascites: Trace abdominopelvic ascites. Peritoneal drainage catheter is seen in the right lower quadra nt. Lymphadenopathy: No mesenteric, retroperitoneal or periportal lymphadenopathy. Abdominal Wall and Mesentery: Ventral hernia seen in the lower abdomen containing multiple loops of nonobstructed small-bowel. Vasculature: The visualized abdominal aorta is normal in size and caliber. Evaluation of abdominal a nd pelvic vessels is limited due to lack of intravenous contrast. Pelvic Organs: Unremarkable Musculoskeletal: No aggressive focal bony lesions, acute fractures or dislocation. IMPRESSION: 1. No acute findings identified. 2. Ventral hernia seen in the lower abdomen containing multiple loops of nonobstructed small-bowel. 3. Cirrhotic liver. 4. Splenomegaly. 5. Trace abdominopelvic ascites. Radiation optimization: All CT scans at this facility use at least one of these dose optimization palomo hniques: automated exposure control mA and/or kV adjustment per patient size (includes targeted exam s where dose is matched to clinical indication) or iterative reconstruction.
[2024-05-07] MEDS: LORazepam 2MG/ML-1ML VIAL IV PRN ×2 (01:33→05:17)
[2024-05-07 01:38] LABS: Urine Bacteria MOD /hpf (None Seen); Urine Blood 2+ /uL (Negative); Urine Clarity Turbid (Clear); Urine Color Dark-Yellow (Yellow); Urine Hyaline Cast FEW /lpf (0 - 2); Urine Mucus FEW (None Seen); Urine Protein, UAD 2+ (Negative); Urine Specific Gravity 1.015 (1.001-1.035); Urine Squamous Epithelial Cell FEW /hpf (<5); Urine Urobilinogen 2 mg/dL (Negative); Urine WBC 193 /HPF (0-3); Urine pH 5.5 (5.0-9.0)
[2024-05-07 01:50] LABS: Cannabinoid Screen, Urine Neg (NEGATIVE)
[2024-05-07 01:51] LABS: Amphetamine Screen, Urine Pos (NEGATIVE); Barbiturate Scree,Urine Neg (NEGATIVE); Benzodiazephine Screen, Urine Neg (NEGATIVE); Cocaine Screen, Urine Neg (NEGATIVE); Opiate Scree,Urine Pos (NEGATIVE); Phencyclidine Screen, Urine Neg (NEGATIVE)
[2024-05-07 03:44] LABS: Basophils # (auto) 0 10 ^3/uL (0-0.2); Basophils % (auto) 0.3 % (0.0-2.0); Eosinophils # (auto) 0.2 10 ^3/uL (0-0.8); Eosinophils % (auto) 2.6 % (0.0-7.0); Hemoglobin 9.7 g/dL (13.5-17.5); Lymphocytes # (auto) 0.6 10 ^3/uL (0.4-5.4); Lymphocytes % (auto) 10.2 % (10.0-50.0); Mean Corpuscular Hemoglobin 30.9 pg (28.0-32.0); Mean Corpuscular Hgb Conc. 32.3 g/dL (32.0-36.0); Mean Corpuscular Volume 95.5 fL (80.0-100.0); Monocytes # (auto) 0.8 10 ^3/uL (0-1.3); Neutrophils # (auto) 4.7 10 ^3/uL (1.6-8.6); Neutrophils % (auto) 73.9 % (37.0-80.0); Nucleated Red Blood Cells % 0.1 %; Platelet Count (auto) 110 10^3/uL (140-450); Red Blood Cells 3.15 10^6/uL (4.5-5.90); White Blood Cell 6.3 10^3/uL (4.4-10.8)
[2024-05-07 03:47] LABS: Albumin 3.3 g/dL (3.2-4.8); Anion Gap 7 (5-15); BUN/Creatinine Ratio 13.9 (10.0-20.0); Calcium 9.5 mg/dL (8.7-10.4); Carbon Dioxide 22 mmol/L (20-31); Glucose 77 mg/dL (74-106); Potassium 4.7 mmol/L (3.5-5.1); Sodium 142 mmol/L (136-145); Total Protein 6.9 g/dL (5.7-8.2)
[2024-05-07 03:51] LABS: Alanine Aminotransferase 70 U/L (7-40); Alkaline Phosphatase 276 U/L (46-116); Aspartate Aminotransferase 138 U/L (13-40); Bilirubin, Total 4.7 mg/dL (0.2-1.0); Blood Urea Nitrogen 23 mg/dL (9-23); Chloride 113 mmol/L (98-107)
[2024-05-07] MEDS: GABAPENTIN 300 MG CAP PO SCH (06:00)
[2024-05-07] MEDS: SODIUM CHLOR 0.9% PF (SALINE LOCK) 10ML VIAL/SYR IV SCH (06:05)
[2024-05-07] MEDS ORDERED: DEXTROSE 50% SYRINGE 50 ML IV ONE (06:53)
[2024-05-07] MEDS: InsuLIN REG 1unit/0.01ml Soln (100units/ml) SC SCH (06:57)
[2024-05-07] MEDS: ACCU-CHEK COMFORT CURVE STRIP VI SCH (06:57)
[2024-05-07] MEDS: DEXTROSE (50%) 50ML SYRG IV ONE ×2 (07:02)
[2024-05-07] MEDS: cefTRIAXone 1GM/50ML D5W 50 ML IV ONE (07:37)
--- NOTE | 2024-05-07 09:30 | DVHPN2 ---
Subjective Continues to be lethargic; opening eyes to painful stimuli Reviewed: Care Plan, H&P, Labs, Medications, Previous Orders, Radiology, Other (Consultations) Changes from previous H/P or p: No Changes Objective Vitals Vital Signs Date Time Temp Pulse Resp B/P (MAP) Pulse Ox O2 Delivery O2 Flow Rate FiO2 05/07/24 08:03 90 05/07/24 07:40 12 96 Simple Mask* 6 50 05/07/24 07:40 97.7 137/64 (88) 97.7 Intake/Output Intake and Output 05/07/24 07:00 Output Total 275 ml Balance -275 ml Output Urine Total 275 ml General Appearance: Other (Lethargic; anasarca) HEENT: Atraumatic Lungs: Other (Decreased air entry bilateral with decreased respiratory rate) Cardiovascular: Regular rate, Normal S1, Normal S2, No murmurs Abdomen: Normal bowel sounds, Soft, Other (Ventral hernia; reducible; no ascites palpated) Genitourinary: Other (Junior's) Extremities: Other (Stasis changes of the skin of lower extremities with nonpitting edema) Neuro: Other (Lethargic; opening eyes to painful stimuli) Psych/Mental Status: Other (Lethargic) Medications Current Medications Medications Dose Ordered Sig/Kenisha Route Start Time Stop Time Status Last Admin Dose Admin Aspirin 81 mg DAILY PO 05/07/24 10:00 Spironolactone 25 mg DAILY PO 05/07/24 10:00 Diagnostic Test (Pha) 1 strip ACHS 05/07/24 07:00 05/07/24 06:57 1 STRIP Insulin Human Regular ACHS SC 05/07/24 07:00 Dextrose 50 ml UD PRN IV 05/06/24 22:15 Sodium Chloride 10 ml Q8HR IV 05/07/24 06:00 05/07/24 06:05 10 ML Acetaminophen/ Hydrocodone Bitart 1 tab Q4HP PRN PO 05/06/24 22:15 Ondansetron HCl 4 mg Q4HP PRN IV 05/06/24 22:15 Docusate Sodium 100 mg BIDPRN PRN PO 05/06/24 22:15 Morphine Sulfate 2 mg Q4HPRN PRN IV 05/06/24 22:15 Ibuprofen 600 mg Q6HP PRN PO 05/06/24 22:15 Gabapentin 300 mg TID PO 05/07/24 06:00 Nitroglycerin 0.4 mg Q5MINP PRN SL 05/06/24 23:15 Morphine Sulfate 2 mg Q30M PRN IV 05/06/24 23:15 Lorazepam 1 mg Q8HPRN PRN IV 05/06/24 23:30 05/07/24 05:17 1 MG Ceftriaxone Sodium 50 ml @ 100 mls/hr DAILY@09 IV 05/08/24 09:00 Lactulose 30 ml BID PO 05/07/24 10:00 Laboratory Results Laboratory Tests 05/07/24 02:55 Chemistry Test 05/06/24 17:20 05/07/24 02:55 Albumin 3.3 g/dL (3.2-4.8) 3.3 g/dL (3.2-4.8) Calcium Level 9.3 mg/dL (8.7-10.4) 9.5 mg/dL (8.7-10.4) Total Protein 6.8 g/dL (5.7-8.2) 6.9 g/dL (5.7-8.2) Cardiac Markers Test 05/07/24 02:55 B-Type Natriuretic Peptide 504.68 pg/mL (0-100) LFT Test 05/06/24 17:20 05/07/24 02:55 Alanine Aminotransferase (ALT) 65 U/L (7-40) H 70 U/L (7-40) H Alkaline Phosphatase 287 U/L (46-116) H 276 U/L (46-116) H Aspartate Amino Transferase (AST) 105 U/L (13-40) H 138 U/L (13-40) H Total Bilirubin 6.0 mg/dL (0.2-1.0) H 4.7 mg/dL (0.2-1.0) H Urinalysis Test 05/07/24 01:30 Urine Color Dark-yellow (Yellow) Urine Clarity Turbid (Clear) H Urine pH 5.5 (5.0-9.0) Urine Specific [place] 1.015 (1.001-1.035) Urine Protein 2+ (Negative) H Urine Ketones Negative (Negative) Urine Blood 2+ /uL (Negative) H Urine Nitrite Negative (Negative) Urine Bilirubin 1+ (Negative) Urine Urobilinogen 2 mg/dL (Negative) H Urine Leukocyte Esterase 3+ /uL (Negative) Urine RBC 8 /hpf (0 - 3) Urine Microscopic WBC 193 /HPF (0-3) H Urine Squamous Epithelial Cells Few /hpf (<5) Urine Bacteria Mod /hpf (None Seen) H Urine Hyaline Casts Few /lpf (0 - 2) Urine Mucus Few (None Seen) Urine Glucose Normal mg/dL (Normal) Labs and/or images reviewed: Labs reviewed by me, Image(s) reviewed by me Assessment/Plan Assessment/Plan A 63-year-old male patient; with multiple comorbidities; who presented to the emergency department because of altered mental status. #Acute hepatic/metabolic/toxic encephalopathy in the setting of methamphetamine use disorder, liver cirrhosis, and sepsis; received multiple doses of Narcan; ordered and reviewed head CT; reviewed lab work including drug screen and ammonia level; lethargic with episodes of agitation; continue current medical management with lorazepam as indicated; discontinued gabapentin and morphine for now; continue close monitoring #Acute hypoxic and hypercapnic respiratory failure in the setting of decreased respiratory rate and suspected aspiration pneumonia; reviewed the available imaging studies and ABGs; received multiple doses of Narcan; pulmonology consulted and patient was started on high-flow nasal cannula; continue close monitoring #Acute hepatic encephalopathy in the setting of hepatitis C decompensated liver cirrhosis; elevated ammonia level; consulted GI; continue lactulose along with furosemide and spironolactone; to place NG tube if needed; continue close monitoring #Hepatitis-C decompensated liver cirrhosis with anasarca, trace ascites, coagulopathy, elevated liver enzymes, and thrombocytopenia; details and management as above; continue close monitoring #History of GI bleed requiring blood transfusions; no active bleeding at this time; continue close monitoring #Sepsis due to suspected aspiration pneumonia and suspected UTI; reviewed the imaging studies and urinalysis; changed IV antibiotics from IV ceftriaxone to IV Zosyn; urine cultures pending; ordered blood cultures; continue close monitoring #NELIDA in the setting of sepsis; most likely vasomotor nephropathy; avoid nephrotoxic agents; continue close monitoring #NSTEMI; likely type 2, demand ischemia; secondary above; elevated troponin levels; reviewed echocardiogram and EKG; aspirin discontinued by cardiology; telemetry; cardiology is following; continue close monitoring #Normocytic anemia; inflammatory; no signs/symptoms of active bleeding at this time; continue close monitoring #Hypoglycemia due to decreased oral intake; continue hypoglycemia protocol; discontinue insulin sliding scale; previous A1c was below 4%; continue close monitoring #DVT prophylaxis as per cardiology recommendations; platelets count above [id number]; continue close monitoring for active bleeding and hemoglobin level along with platelets count #Methamphetamine use disorder; to addressed when the patient is awake; continue monitoring #Morbid obesity; to address when the patient is awake; continue monitoring Upgraded to CARLA Goals of care discussed by the nursing staff with the patient's for 20 minutes; full code 99 minutes of critical care time Late Entry. This medical document was created using an electronic medical record system with computerized dictation system. Although this document has been carefully reviewed, there might still be some phonetic and typographical errors. These areas are purely typographical due to imperfections of the software programs, and do not reflect any compromise in the patient's medical care. Plan discussed with: Spouse (The nursing staff discussed with the patient's his clinical condition including goals of care), Other (Nurse) Date of Service: May 07, 2024 Billing Provider: OCTAVIA TIWARI MD Common Visit Codes: 37934-[id number] CARE 30-74 MIN (99 minutes), [id number] CARE-EACH +30MIN Secondary Visit Codes: 24296-NHEPTLYO CARE PLAN 30 MINUTES (20 minutes by the nursing staff; called the patient's but no call back from the patient's ) OCTAVIA TIWARI MD May 07, 2024 09:30
[2024-05-07] MEDS: ASPirin 81 mg TAB PO SCH (10:00)
[2024-05-07] MEDS ORDERED: SPIRONOLACTONE 25 MG TAB PO SCH (10:00)
[2024-05-07] MEDS ORDERED: LACTULOSE 20Gm/30ML SOLN PO SCH (10:00)
[2024-05-07] MEDS: SPIRONOLACTONE 25 MG TAB PO SCH (10:38)
[2024-05-07] MEDS: LACTULOSE 20Gm/30ML SOLN PO SCH (10:38)
--- NOTE | 2024-05-07 10:38 | DVH ---
EXAM: CT Head Without Intravenous Contrast CLINICAL INDICATION: AMS. Thank You! TECHNIQUE: Axial computed tomography images of the head/brain without intravenous contrast. This CT exam was performed using one or more of the following dose reduction techniques: automated exposure control, adjustment of the mA and/or kV according to patient size, and/or use of iterative reconstru ction technique. CONTRAST: RADIATION DOSE: CTDIvol = 56.93 mGy, DLP = 1122.12 mGy-cm COMPARISON: CT HEAD WITHOUT CONTRAST on DOS: 10/06/23, CT HEAD WITHOUT CONTRAST on DOS: 10/05/23 FINDINGS: BRAIN AND EXTRA-AXIAL SPACES: No acute intracranial hemorrhage, midline shift or mass effect. If sy mptoms persist, further evaluation with MRI is recommended. No significant white matter disease. BONES/JOINTS: Unremarkable. No acute fracture. SOFT TISSUES: Unremarkable. SINUSES: Unremarkable as visualized. No acute sinusitis. MASTOID AIR CELLS: Unremarkable as visualized. No mastoid effusion. OTHER FINDINGS: . . IMPRESSION: No acute intracranial hemorrhage, midline shift or mass effect. If symptoms persist, further evaluat ion with MRI is recommended.
[2024-05-07] MEDS ORDERED: FOLIC ACID 1 MG, MAGNESIUM SULF SDV 50% 8 MEQ, MULTIPLE VITAMIN 10 ML, THIAMINE INJ 100... INJ SCH (11:45)
--- NOTE | 2024-05-07 12:31 | DVHINCON2 ---
Date Seen: May 07, 2024 Referring Physician KAVEH Granados Reason for Consultation NSTEMI History of Present Illness This is a 63-year-old man who presented to the emergency room via EMS with a chief complaint of possible drug overdose. At time of assessment, the patient was obtunded and on a non-rebreather mask with O2 at 6 LPM. Information obtained from primary RN and records which indicate initial call was for ALOC for which the patient was administered Narcan with a positive response on mental status he underwent a 12 lead electrocardiogram revealing a sinus arrhythmia rhythm fluctuating between 80s-90s bpm. Troponin levels peaked in the 500s ng/L. 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 Past Medical History Past medical history reviewed. No other significant than mentioned above. Past Surgical History Hernia repair Tips procedure Paracentesis x2 Family History: Patient reports no known family medical history. Family History Per records, noncontributory. Social History UDS positive for opiates and methamphetamines. Allergies: Coded Allergies: NO KNOWN ALLERGIES (Unverified , 09/25/21) Home Meds Active Scripts Spironolactone (Aldactone) 25 Mg Tab, 50 MG PO DAILY for 30 Days, #60 TAB Prov:JANETT SILVERMAN [facility] 07/09/23 Rifaximin (Xifaxan) 550 Mg Tab, 550 MG PO BID for 30 Days, #60 TAB Prov:JANETT SILVERMAN [facility] 07/09/23 Furosemide (Furosemide) 20 Mg Tab, 60 MG PO BIDD for 30 Days, #180 TAB Prov:JANETT SILVERMAN [facility] 07/09/23 Lactulose (Lactulose) 10 Gm/15 Ml Trista, 30 ML PO Q2HR for 30 Days, #30 ML Prov:JANETT SILVERMAN [facility] 07/09/23 Ergocalciferol (VITAMIN D 28693 UNIT) 50,000 [place], [address] UNIT PO Q7D for 30 Days, #10 CAP Prov:JANETT SILVERMAN [facility] 07/09/23 Insulin Glargine (Lantus) 100 Unit/Ml Inj, 15 UNITS SC BID@1000,2200, #10 INJ Prov:ADEOLA OROPEZA MD 10/03/21 Reported Medications Sodium Bicarbonate (Sodium Bicarbonate) 650 Mg Tab, PO 06/30/23 Pot Phosphate Dibasic & Monoba (Neutra-Phos) 1 Tab Tb, PO 06/30/23 Gabapentin (Gabapentin) 300 Mg Cap, 1 CAP PO Q8H 06/30/23 Morphine Sulfate (Morphine Sulfate) 30 Mg Tab, 1 TAB PO TID 06/30/23 Home Meds Home medications reviewed. Current Medications Current Medications Medications (Trade) Dose Ordered Sig/Kenisha Route PRN Reason Start Time Stop Time Status Last Admin Aspirin 81 mg DAILY PO 05/07/24 10:00 05/07/24 10:00 Spironolactone (Aldactone) 25 mg DAILY PO 05/07/24 10:00 05/07/24 10:38 Lactulose 30 ml DAILY PO 05/07/24 10:00 05/07/24 07:34 DC Diagnostic Test (Pha) (Accu-Chek Comfort Curve T) 1 strip ACHS 05/07/24 07:00 05/07/24 11:59 Insulin Human Regular (InsuLIN R) ACHS SC 05/07/24 07:00 Dextrose 50 ml UD PRN IV Blood Sugar LESS THAN 60 05/06/24 22:15 Sodium Chloride (Saline Lock Ns) 10 ml Q8HR IV 05/07/24 06:00 05/07/24 06:05 Acetaminophen/ Hydrocodone Bitart ([place] 5/325MG Tab) 1 tab Q4HP PRN PO MODERATE PAIN (4-6 PAIN SCALE) 05/06/24 22:15 Ondansetron HCl (Zofran) 4 mg Q4HP PRN IV NAUSEA / VOMITING 05/06/24 22:15 Docusate Sodium (Colace Capsule) 100 mg BIDPRN PRN PO FOR CONSTIPATION 05/06/24 22:15 Morphine Sulfate 2 mg Q4HPRN PRN IV SEVERE PAIN (7-10 PAIN SCALE) 05/06/24 22:15 Ibuprofen (Motrin Tablet) 600 mg Q6HP PRN PO PAIN SCALE 1-3 OR TEMP>100.4 05/06/24 22:15 Gabapentin (Neurontin Capsule) 300 mg TID PO 05/07/24 06:00 Nitroglycerin (Ntrostat Sublingual) 0.4 mg Q5MINP PRN SL FOR CHEST PAIN 05/06/24 23:15 Morphine Sulfate 2 mg Q30M PRN IV FOR CHEST PAIN 05/06/24 23:15 Lorazepam (Ativan Inj) 1 mg Q8HPRN PRN IV AGITATION 05/06/24 23:30 05/07/24 05:17 Lorazepam (Ativan Inj) 2 mg ONCE PRN IV AGITATION 05/07/24 01:15 05/07/24 07:34 DC Ceftriaxone Sodium 50 ml @ 100 mls/hr DAILY@09 IV 05/08/24 09:00 Lactulose 30 ml BID PO 05/07/24 10:00 05/07/24 10:38 Spironolactone (Aldactone) 25 mg DAILY PO 05/07/24 10:00 05/07/24 07:34 DC Folic Acid 1 mg/ Magnesium Sulfate 8 meq/ Multivitamins 10 ml/Thiamine HCl 100 mg/Sodium Chloride 1,013.2 ml @ 126.247 mls/hr DAILY@1800 INJ 05/07/24 11:45 Review of Systems Constitutional: No symptom reported Ears, Nose, & Throat: No symptom reported Eyes: No symptom reported Neurological: ALOC Pulmonary/Respiratory: No symptom reported Cardiovascular: No symptom reported Gastrointestinal: No symptom reported Genitourinary: No symptom reported Musculoskeletal: No symptom reported Skin: No symptom reported Psychiatric: No symptom reported Endocrine: No symptom reported Hemotologic/Lymphatic: No symptom reported Vital Signs Vital Signs Date Time Temp Pulse Resp B/P (MAP) Pulse Ox O2 Delivery O2 Flow Rate FiO2 05/07/24 08:03 90 05/07/24 07:40 12 96 Simple Mask* 6 50 05/07/24 07:40 97.7 137/64 (88) 97.7 Physical Exam General Appearance: Obtunded. O2 via an NRB. [place] on Head Exam: Normal inspection Neck Exam: Normal inspection. Normal alignment Pulmonary/Respiratory: Diminished bilateral breath sounds Cardiovascular/Chest: Irregularly rate and rhythm. S1, S2. Sinus arrhythmia. No murmurs. No JVD. Peripheral Pulses: 2+ Radial (R). 2+ Radial (L). 2+ Pedal (R). 2+ Pedal (L) Abdominal Exam: Normal bowel sounds. Soft. Nontender. No hepatospenomegaly. No masses Ankle Exam: Positive ankle edema, 1+ Lower extremities: Positive lower extremity edema, 1+ Neuro/Mental Status: Obtunded. Withdrawn Thoughts/Psych: Unable to assess at this time Appearance: Obtunded. Withdrawn Skin Exam: Normal inspection. Normal color. Warm. Dry Labs/Diagnostic Data Labs Test 05/07/24 08:12 05/07/24 02:55 05/07/24 01:30 05/06/24 21:02 Range/Units POC Glucose 104 70-106 mg/dl White Blood Count 6.3 4.4-10.8 10^3/uL Red Blood Count 3.15 L 4.5-5.90 10^6/uL Hemoglobin 9.7 L 13.5-17.5 g/dL Hematocrit 30.0 L 41.0-53.0 % Mean Corpuscular Volume 95.5 80.0-100.0 fL Mean Corpuscular Hemoglobin 30.9 28.0-32.0 pg Mean Corpuscular Hemoglobin Concent 32.3 32.0-36.0 g/dL Red Cell Distribution Width 20.0 H 11.8-14.3 % Platelet Count 110 L 140-450 10^3/uL Mean Platelet Volume 10.0 6.9-10.8 fL Neutrophils (%) (Auto) 73.9 37.0-80.0 % Lymphocytes (%) (Auto) 10.2 10.0-50.0 % Monocytes (%) (Auto) 13.0 H 0.0-12.0 % Eosinophils (%) (Auto) 2.6 0.0-7.0 % Basophils (%) (Auto) 0.3 0.0-2.0 % Neutrophils # (Auto) 4.7 1.6-8.6 10 ^3/uL Lymphocytes # (Auto) 0.6 0.4-5.4 10 ^3/uL Monocytes # (Auto) 0.8 0-1.3 10 ^3/uL Eosinophils # (Auto) 0.2 0-0.8 10 ^3/uL Basophils # (Auto) 0 0-0.2 10 ^3/uL Nucleated Red Blood Cells 0.1 % Sodium Level 142 136-145 mmol/L Potassium Level 4.7 3.5-5.1 mmol/L Chloride Level 113 H 98-107 mmol/L Carbon Dioxide Level 22 20-31 mmol/L Anion Gap 7 5-15 Blood Urea Nitrogen 23 9-23 mg/dL Creatinine 1.66 H 0.700-1.30 mg/dL Glomerular Filtration Rate Calc 46 >90 mL/min BUN/Creatinine Ratio 13.9 10.0-20.0 Serum Glucose 77 74-106 mg/dL Calcium Level 9.5 8.7-10.4 mg/dL Total Bilirubin 4.7 H 0.2-1.0 mg/dL Aspartate Amino Transferase (AST) 138 H 13-40 U/L Alanine Aminotransferase (ALT) 70 H 7-40 U/L Alkaline Phosphatase 276 H 46-116 U/L Ammonia 84 H 11-32 umol/L B-Type Natriuretic Peptide 504.68 0-100 pg/mL Total Protein 6.9 5.7-8.2 g/dL Albumin 3.3 3.2-4.8 g/dL Urine Color Dark-yellow Yellow Urine Clarity Turbid H Clear Urine pH 5.5 5.0-9.0 Urine Specific [place] 1.015 1.001-1.035 Urine Protein 2+ H Negative Urine Ketones Negative Negative Urine Blood 2+ H Negative /uL Urine Nitrite Negative Negative Urine Bilirubin 1+ Negative Urine Urobilinogen 2 H Negative mg/dL Urine Leukocyte Esterase 3+ Negative /uL Urine RBC 8 0 - 3 /hpf Urine Microscopic WBC 193 H 0-3 /HPF Urine Squamous Epithelial Cells Few <5 /hpf Urine Bacteria Mod H None Seen /hpf Urine Hyaline Casts Few 0 - 2 /lpf Urine Mucus Few None Seen Urine Glucose Normal Normal mg/dL Urine Opiates Screen Pos NEGATIVE Urine Fentanyl Screen Neg NEGATIVE Urine Barbiturates Screen Neg NEGATIVE Urine Phencyclidine Screen Neg NEGATIVE Urine Amphetamines Screen Pos NEGATIVE Urine Benzodiazepines Screen Neg NEGATIVE Urine Cocaine Screen Neg NEGATIVE Urine Cannabinoids Screen Neg NEGATIVE Troponin I High Sensitivity 454 *H </=54 ng/L Test 05/06/24 17:20 Range/Units Plasma/Serum Blood Alcohol < 3.0 <10 mg/dL Assessment Acute toxic encephalopathy 2/2 methamphetamines NSTEMI likely type 2 secondary to above Liver cirrhosis secondary to hepatitis-C Anasarca/ascites secondary to above Hx of GI bleed with transfusions Acute kidney injury on CKD Anemia and chronic disease Thrombocytopenia Plan/Recommendation (Dr. Roberson) The patient presents as an NSTEMI type 2 secondary to drug overdose with methamphetamine use. Transthoracic echocardiogram revealed left ventricular ejection fraction of 60% with normal RV function. Anasarca likely secondary to liver disease. Discontinue ASA given history of GI bleed. Consider DVT/VTE prophylaxis and monitor closely. Consider Nephrology consultation. There is no further cardiac workup indicated at this time. Kindly call if in need to re- consult. Thank you for allowing us to participate in this patient's care. Please call if you have any questions or concerns. Critical care time: 40 min. This medical document was created using an electronic medical record system with voice recognition software and computerized dictation system. Although this document has been carefully reviewed, there might still be some phonetic and typographical errors. Occasional wrong-word or ``sound-alike substitutions may have occurred due to the inherent limitations of voice recognition software. These areas are purely typographical due to imperfections of the software programs and do not reflect any compromise in the patient's medical care. Please read the chart carefully and recognize, using context, where these substitutions have occurred. Plan discussed with: Other NYHA Physical activity limitations: NA Date of Service: May 07, 2024 Billing Provider: DONATO PHAN Cardiology Common Codes: [id number] CARE 30-74 MIN DONATO PHAN May 07, 2024 12:31
[2024-05-07] MEDS: FUROSEMIDE 20 MG/2 ML VIAL IV ONE (12:58)
[2024-05-07 13:54] LABS: Base Excess -9.1 mmol/L (-2.0-3.0)
--- NOTE | 2024-05-07 15:05 | DVHSR ---
APPROVED REPORT EXAM: LIMITED Two-dimensional and M-mode echocardiogram with Doppler and color Doppler. Blood Pressure: 137/64 mmHg INDICATION History CHF RISK FACTORS Height: 6', Weight: 200 DIMENSIONS LVDd5.6 (3.8-5.7cm)LA (2D)4.0 (1.9-4.0cm)Aortic Root4.1 (2.0-3.7cm) LVDs4.0 (2.5-4.0cm)LA (MM) (1.9-4.0cm)Aortic Cusp Exc1.9 (1.5-2.0cm) EF (%) 53.0 (55-70%)Rt. Atrium4.8 (1.9-4.0cm)Asc. Aorta cm IVSd0.9 (0.7-1.1cm)RV (D) (1.8-2.4cm) PWd1.0 (0.7-1.1cm) Mitral Valve MitralMitral Stenosis E wave1.40m/sMV Mean GR.mmHg A wave1.00m/sMV Peak GR.mmHg E/A ratio1.42D MVAcm2 Aortic Valve Aortic ValveAortic Stenosis V11.50m/Saud Mean GR.10mmHg V22.20m/Saud Peak GR.19mmHg LVOT Diameter2.1 (1.8-2.4cm)Doppler AVA2.36cm2 Other Information Quality : Technically LimitedRhythm : Technically limited study due to body habitus, pt uncooperative, moving and ALOC due to overdose. Conclusion Sinus rhythm. Off axis views. Limited acoustic windows. Concentric LVH. Right atrial enlargement. RV enlargement. Valves appear to be structurally normal. EF of 60% with normal RV function. Dopplers unremarkable. No pericardial effusion masses or vegetations.
[2024-05-07] MEDS: SODIUM BICARB 8.4% 50Meq/50ml SYR Vial IV ONE (15:48)
--- NOTE | 2024-05-07 19:02 | DVHINCON2 ---
Date of service: May 07, 2024 Referring Physician Brody Granados NP Reason for Consultation Acute hypoxic/hypercarbic respiratory failure and pulmonary edema. History of Present Illness A 63-year-old man, unkempt, with past medical history of liver cirrhosis, CHF, diabetes mellitus, UTIs, and cancer who presented to ED on 05/06/24 for evaluation of drug overdose. Patient's reported he was found gurgling and unresponsive in a car, so EMS were called. When EMS arrived on the scene, the patient was given Narcan and woke up, but unable to recall what happened. ED workup showed WBC 5.4, hemoglobin 9.7, hematocrit 32.2, platelets 88,000, sodium 141, potassium 4.9, BUN 23, creatinine 1.73, GFR 44, glucose 112, AST 105, ALT 65, troponin 454, ammonia 84. Urinalysis positive for urinary tract infection. Chest x-ray revealed cardiomegaly with pulmonary vascular congestion. Patient denied chest pain, headache, dizziness, shortness of breath, abdominal pain, N/V/D or other complaints. Patient was admitted for further care, and pulmonary consultation is requested for evaluation and management of acute hypoxic/hypercarbic respiratory failure and pulmonary edema. Review of Systems: 14-point review of systems negative unless otherwise noted above. Past Medical History: Cancer, CHF, diabetes mellitus, liver cirrhosis, UTIs. Past Surgical History: Hernia repair. Medications: Reviewed. Allergies: No known drug allergies. Family History: No family history of premature CAD. No family history of lung disorders. Social History: Smoker. Smokes cigarettes less than 1 pack per day No alcohol or illicit drug use. Family History: Patient reports no known family medical history. Allergies: Coded Allergies: NO KNOWN ALLERGIES (Unverified , 09/25/21) Home Meds Active Scripts Spironolactone (Aldactone) 25 Mg Tab, 50 MG PO DAILY for 30 Days, #60 TAB Prov:JANETT SILVERMAN 07/09/23 Rifaximin (Xifaxan) 550 Mg Tab, 550 MG PO BID for 30 Days, #60 TAB Prov:JANETT SILVERMAN 07/09/23 Furosemide (Furosemide) 20 Mg Tab, 60 MG PO BIDD for 30 Days, #180 TAB Prov:JANETT SILVERMAN 07/09/23 Lactulose (Lactulose) 10 Gm/15 Ml Trista, 30 ML PO Q2HR for 30 Days, #30 ML Prov:ANDRAJANETT RESIDENT 07/09/23 Ergocalciferol (VITAMIN D 36954 UNIT) 50,000 [place], [address] UNIT PO Q7D for 30 Days, #10 CAP Prov:JONNYELIZABETHDARYJOHNJANETT RESIDENT 07/09/23 Insulin Glargine (Lantus) 100 Unit/Ml Inj, 15 UNITS SC BID@1000,2200, #10 INJ Prov:ADEOLA OROPEZA MD 10/03/21 Reported Medications Sodium Bicarbonate (Sodium Bicarbonate) 650 Mg Tab, PO 06/30/23 Pot Phosphate Dibasic & Monoba (Neutra-Phos) 1 Tab Tb, PO 06/30/23 Gabapentin (Gabapentin) 300 Mg Cap, 1 CAP PO Q8H 06/30/23 Morphine Sulfate (Morphine Sulfate) 30 Mg Tab, 1 TAB PO TID 06/30/23 Current Medications Current Medications Medications (Trade) Dose Ordered Sig/Kenisha Route PRN Reason Start Time Stop Time Status Last Admin Aspirin 81 mg DAILY PO 05/07/24 10:00 05/07/24 12:31 DC 05/07/24 10:00 Spironolactone (Aldactone) 25 mg DAILY PO 05/07/24 10:00 05/07/24 10:38 Lactulose 30 ml DAILY PO 05/07/24 10:00 05/07/24 07:34 DC Diagnostic Test (Pha) (Accu-Chek Comfort Curve T) 1 strip ACHS 05/07/24 07:00 05/07/24 11:59 Insulin Human Regular (InsuLIN R) ACHS SC 05/07/24 07:00 Dextrose 50 ml UD PRN IV Blood Sugar LESS THAN 60 05/06/24 22:15 Sodium Chloride (Saline Lock Ns) 10 ml Q8HR IV 05/07/24 06:00 05/07/24 13:50 Acetaminophen/ Hydrocodone Bitart ([place] 5/325MG Tab) 1 tab Q4HP PRN PO MODERATE PAIN (4-6 PAIN SCALE) 05/06/24 22:15 Ondansetron HCl (Zofran) 4 mg Q4HP PRN IV NAUSEA / VOMITING 05/06/24 22:15 Docusate Sodium (Colace Capsule) 100 mg BIDPRN PRN PO FOR CONSTIPATION 05/06/24 22:15 Morphine Sulfate 2 mg Q4HPRN PRN IV SEVERE PAIN (7-10 PAIN SCALE) 05/06/24 22:15 Ibuprofen (Motrin Tablet) 600 mg Q6HP PRN PO PAIN SCALE 1-3 OR TEMP>100.4 05/06/24 22:15 Gabapentin (Neurontin Capsule) 300 mg TID PO 05/07/24 06:00 Nitroglycerin (Ntrostat Sublingual) 0.4 mg Q5MINP PRN SL FOR CHEST PAIN 05/06/24 23:15 Morphine Sulfate 2 mg Q30M PRN IV FOR CHEST PAIN 05/06/24 23:15 Lorazepam (Ativan Inj) 1 mg Q8HPRN PRN IV AGITATION 05/06/24 23:30 05/07/24 05:17 Lorazepam (Ativan Inj) 2 mg ONCE PRN IV AGITATION 05/07/24 01:15 05/07/24 07:34 DC Ceftriaxone Sodium 50 ml @ 100 mls/hr DAILY@09 IV 05/08/24 09:00 Lactulose 30 ml BID PO 05/07/24 10:00 05/07/24 16:42 DC 05/07/24 10:38 Spironolactone (Aldactone) 25 mg DAILY PO 05/07/24 10:00 05/07/24 07:34 DC Folic Acid 1 mg/ Magnesium Sulfate 8 meq/ Multivitamins 10 ml/Thiamine HCl 100 mg/Sodium Chloride 1,013.2 ml @ 126.247 mls/hr DAILY@1800 INJ 05/07/24 11:45 05/07/24 12:54 DC Furosemide (Lasix Injection) 20 mg DAILY IV 05/08/24 10:00 Lactulose 30 ml BID OR 05/07/24 22:00 Vital Signs Vital Signs Date Time Temp Pulse Resp B/P (MAP) Pulse Ox O2 Delivery O2 Flow Rate FiO2 05/07/24 18:30 99.1 95 16 128/53 (78) 97 99.1 05/07/24 18:05 55.0 55 05/07/24 18:05 Hi-Flow Heated NC+ Physical Exam Gen.: Patient lying in bed in no apparent distress. On supplemental oxygen. Head: Normocephalic, atraumatic. Eyes: EOMI/PERRLA. Ears: Normal hearing. Normal anatomy. Neck/trachea: Trachea midline, supple. Nose: Normal external anatomy. Mouth: Moist mucous membranes. Chest: Decreased air entry bilaterally. No wheezing or rhonchi. Cardiovascular: Positive S1, positive S2. Regular rate and rhythm. Abdomen: Positive bowel sounds in all 4 quadrants. Soft, non-tender, non- distended. : Deferred. Rectal: Deferred. Skin: Warm, dry. Intact. Extremities: 2+ radial pulses bilaterally. No lower extremity edema. Neuro: Awake, alert, oriented x3. No gross motor or sensory deficits. Cranial nerves II through XII intact. Gait not assessed. Labs/Diagnostic Data Labs Test 05/07/24 17:02 05/07/24 13:48 05/07/24 02:55 05/07/24 01:30 Range/Units POC Glucose 113 H 70-106 mg/dl Blood Gas Specimen Type Arterial Blood Gas Sample Site Right brachial Blood Gas Patient Temperature 37.0 Arterial Blood Date Drawn [id number] Arterial Blood pH 7.119 *L 7.350-7.450 Arterial Blood Partial Pressure CO2 65.3 *H 35.0-48.0 mmHg Arterial Blood Partial Pressure O2 91.8 83.0-108.0 mmHg Arterial Blood HCO3 20.7 L 21.0-28.0 mmol/L Arterial Blood Oxygen Saturation 95.6 94.0-98.0 % Arterial Blood Base Excess -9.1 L -2.0-3.0 mmol/L Arterial Blood Oxyhemoglobin 93.3 L 94.0-98.0 % Arterial Blood Carboxyhemoglobin 1.8 H 0.5-1.5 % Arterial Blood Methemoglobin 0.6 0.0-1.5 % Mike Test N/a Blood Gas Total Hemoglobin 11.10 L 13.5-17.5 g/dL Blood Gas Liter Flow 6.00 Blood Gas Modality Mask - simple FiO2 % 45.0 Blood Gas Critical Value Read Back Yes Blood Gas Notified Whom breanna Pearson md Blood Gas Notified Time [id number] Blood Gas Notified By Entry Level Software Engineer maritza frost White Blood Count 6.3 4.4-10.8 10^3/uL Red Blood Count 3.15 L 4.5-5.90 10^6/uL Hemoglobin 9.7 L 13.5-17.5 g/dL Hematocrit 30.0 L 41.0-53.0 % Mean Corpuscular Volume 95.5 80.0-100.0 fL Mean Corpuscular Hemoglobin 30.9 28.0-32.0 pg Mean Corpuscular Hemoglobin Concent 32.3 32.0-36.0 g/dL Red Cell Distribution Width 20.0 H 11.8-14.3 % Platelet Count 110 L 140-450 10^3/uL Mean Platelet Volume 10.0 6.9-10.8 fL Neutrophils (%) (Auto) 73.9 37.0-80.0 % Lymphocytes (%) (Auto) 10.2 10.0-50.0 % Monocytes (%) (Auto) 13.0 H 0.0-12.0 % Eosinophils (%) (Auto) 2.6 0.0-7.0 % Basophils (%) (Auto) 0.3 0.0-2.0 % Neutrophils # (Auto) 4.7 1.6-8.6 10 ^3/uL Lymphocytes # (Auto) 0.6 0.4-5.4 10 ^3/uL Monocytes # (Auto) 0.8 0-1.3 10 ^3/uL Eosinophils # (Auto) 0.2 0-0.8 10 ^3/uL Basophils # (Auto) 0 0-0.2 10 ^3/uL Nucleated Red Blood Cells 0.1 % Sodium Level 142 136-145 mmol/L Potassium Level 4.7 3.5-5.1 mmol/L Chloride Level 113 H 98-107 mmol/L Carbon Dioxide Level 22 20-31 mmol/L Anion Gap 7 5-15 Blood Urea Nitrogen 23 9-23 mg/dL Creatinine 1.66 H 0.700-1.30 mg/dL Glomerular Filtration Rate Calc 46 >90 mL/min BUN/Creatinine Ratio 13.9 10.0-20.0 Serum Glucose 77 74-106 mg/dL Calcium Level 9.5 8.7-10.4 mg/dL Total Bilirubin 4.7 H 0.2-1.0 mg/dL Aspartate Amino Transferase (AST) 138 H 13-40 U/L Alanine Aminotransferase (ALT) 70 H 7-40 U/L Alkaline Phosphatase 276 H 46-116 U/L Ammonia 84 H 11-32 umol/L B-Type Natriuretic Peptide 504.68 0-100 pg/mL Total Protein 6.9 5.7-8.2 g/dL Albumin 3.3 3.2-4.8 g/dL Urine Color Dark-yellow Yellow Urine Clarity Turbid H Clear Urine pH 5.5 5.0-9.0 Urine Specific [place] 1.015 1.001-1.035 Urine Protein 2+ H Negative Urine Ketones Negative Negative Urine Blood 2+ H Negative /uL Urine Nitrite Negative Negative Urine Bilirubin 1+ Negative Urine Urobilinogen 2 H Negative mg/dL Urine Leukocyte Esterase 3+ Negative /uL Urine RBC 8 0 - 3 /hpf Urine Microscopic WBC 193 H 0-3 /HPF Urine Squamous Epithelial Cells Few <5 /hpf Urine Bacteria Mod H None Seen /hpf Urine Hyaline Casts Few 0 - 2 /lpf Urine Mucus Few None Seen Urine Glucose Normal Normal mg/dL Urine Opiates Screen Pos NEGATIVE Urine Fentanyl Screen Neg NEGATIVE Urine Barbiturates Screen Neg NEGATIVE Urine Phencyclidine Screen Neg NEGATIVE Urine Amphetamines Screen Pos NEGATIVE Urine Benzodiazepines Screen Neg NEGATIVE Urine Cocaine Screen Neg NEGATIVE Urine Cannabinoids Screen Neg NEGATIVE Test 05/06/24 21:02 05/06/24 17:20 Range/Units Troponin I High Sensitivity 454 *H </=54 ng/L Plasma/Serum Blood Alcohol < 3.0 <10 mg/dL Assessment Impression: Acute hypoxic respiratory failure Acute hypercarbic respiratory failure Dependence on supplemental oxygen Metabolic acidosis Drug abuse/methamphetamine abuse Elevated troponin Hepatic encephalopathy Urinary tract infection Pulmonary edema. Nicotine dependence Obesity BMI 36.4 Plan: Supplemental oxygen Start high flow O2 at flow rate 50 LPM Titrate to keep O2 sats above 92%. Taper O2 as tolerated. Monitor respiratory status closely CXR reviewed, demonstrates interval increase in left lung base pulmonary markings suggestive of possible developing infiltrate. Stable diffuse prominence of the pulmonary vasculature Continue antibiotics Follow up cultures Head of bed elevation Aspiration precautions Smoking cessation education given. Counseled against drug abuse. Diurese w/ Lasix and spironolactone Monitor renal function. Monitor electrolytes. Supplement as necessary. Monitor ins and outs. DVT prophylaxis. Prognosis: Poor given patient's multiple co-morbidities. Rest of plan per hospitalist and other consultants. Thank you, FEED RESEARCH TECHNICIAN Roberta, for allowing me to participate in this patient's care. Further recommendations will depend on the patient's clinical course. Please do not hesitate to contact me if you have any questions or concerns. This medical document was created using an electronic medical record system with [employer] computerized dictation system. Although these documentations are being carefully reviewed, there may still be some phonetic and typographical changes. The errors are purely typographical, due to imperfection on the software prog stephani, and do not reflect any compromise in the patient's medical care. Plan discussed with: Patient, Other (RN/FEED RESEARCH TECHNICIAN Roberta/) JITENDRA WATERS MD May 07, 2024 19:02
[2024-05-07 19:07] LABS: Base Excess -2.1 mmol/L (-2.0-3.0)
[2024-05-08] VITALS (37 sets, daily range): BP systolic 86–176; BP diastolic 42–145; PULSE 74–136; RESP 8–25; TEMP 98.8; O2SAT 92–100
--- NOTE | 2024-05-08 00:20 | DVH ---
CHEST RADIOGRAPH Indication: NG TUBE PLACEMENT Technique: Single frontal view of the chest was obtained COMPARISON: XY CHEST PORTABLE on DOS: 05/06/24, XY CHEST PORTABLE on DOS: 10/05/23, XY CHEST XRAY 1 VIE W on DOS: 07/09/23, XY CHEST PORTABLE on DOS: 07/08/23, XY CHEST PORTABLE on DOS: 06/29/23 FINDINGS: Lines and Tubes: Interval placement of enteric tube terminating just distal to the expected level of the gastroesophageal junction. Right peripherally inserted central catheter unchanged. Lungs: Mild increased opacity at the left lung base may represent developing infiltrate. Otherwise gr ossly stable appearing diffuse prominence of the pulmonary vasculature. Pleura: No effusion. No pneumothorax. Cardiomediastinal contours: Unremarkable Bones: Unremarkable IMPRESSION: 1. Interval placement of enteric tube with terminus just distal to the expected level of the GEJ. 2. Interval increase in left lung base pulmonary markings suggestive of possible developing infiltrat e. 3. Stable diffuse prominence of the pulmonary vasculature.
[2024-05-08] MEDS: LACTULOSE 20Gm/30ML SOLN PR SCH (00:33)
[2024-05-08] MEDS: PIPERACILLIN-TAZOB 3.375GM 100 ML IV SCH (08:54)
[2024-05-08] MEDS ORDERED: cefTRIAXone 1GM/50ML D5W 50 ML IV SCH (09:00)
[2024-05-08 09:26] LABS: Anion Gap 9 (5-15); BUN/Creatinine Ratio 18.2 (10.0-20.0); Glucose 100 mg/dL (74-106); Potassium 3.8 mmol/L (3.5-5.1); Total Protein 6.4 g/dL (5.7-8.2)
[2024-05-08 09:30] LABS: Alanine Aminotransferase 63 U/L (7-40); Albumin 2.9 g/dL (3.2-4.8); Blood Urea Nitrogen 27 mg/dL (9-23); Chloride 113 mmol/L (98-107); Sodium 148 mmol/L (136-145)
[2024-05-08 09:37] LABS: Basophils # (auto) 0 10 ^3/uL (0-0.2); Basophils % (auto) 0.2 % (0.0-2.0); Eosinophils # (auto) 0.1 10 ^3/uL (0-0.8); Hemoglobin 8.8 g/dL (13.5-17.5); Lymphocytes # (auto) 0.3 10 ^3/uL (0.4-5.4); Lymphocytes % (auto) 8.7 % (10.0-50.0); Mean Corpuscular Hemoglobin 30.7 pg (28.0-32.0); Mean Corpuscular Hgb Conc. 32.5 g/dL (32.0-36.0); Mean Corpuscular Volume 94.5 fL (80.0-100.0); Monocytes # (auto) 0.5 10 ^3/uL (0-1.3); Neutrophils # (auto) 3.1 10 ^3/uL (1.6-8.6); Neutrophils % (auto) 77.1 % (37.0-80.0); Nucleated Red Blood Cells % 0.4 %; Platelet Count (auto) 81 10^3/uL (140-450); Red Blood Cells 2.86 10^6/uL (4.5-5.90); Red Cell Distribution Width 19.5 % (11.8-14.3)
[2024-05-08] MEDS: LORazepam 2MG/ML-1ML VIAL IV ONE (09:47)
[2024-05-08] MEDS: LORazepam 2MG/ML-1ML VIAL ONE (09:51)
[2024-05-08] MEDS: FUROSEMIDE 20 MG/2 ML VIAL IV SCH (10:00)
[2024-05-08] MEDS: dilTIAZem 25 MG/5 ML VIAL IV ONE (10:12)
[2024-05-08] MEDS: SODIUM CHLORIDE 0.9% 500 ML IV ONE (10:37)
--- NOTE | 2024-05-08 11:30 | DVHPN2 ---
Subjective Continues to be lethargic with episodes of agitation; opening eyes to painful stimuli Reviewed: Care Plan, H&P, Labs, Medications, Previous Orders, Radiology, Other (Consultations) Changes from previous H/P or p: No Changes Objective Vitals Vital Signs Date Time Temp Pulse Resp B/P (MAP) Pulse Ox O2 Delivery O2 Flow Rate FiO2 05/08/24 10:24 135 16 92 50.0 55 05/08/24 09:00 123/85 (98) 05/08/24 08:00 Hi-Flow NC 05/08/24 04:00 98.8 98.8 Intake/Output Intake and Output 05/08/24 07:00 Intake Total 50 ml Output Total 1940 ml Balance -1890 ml Intake Oral 0 ml IV Total 50 ml Output Urine Total 1940 ml General Appearance: Other (Lethargic; anasarca) HEENT: Atraumatic, Other (NG tube in place) Lungs: Other (Decreased air entry bilateral with decreased respiratory rate) Cardiovascular: Normal S1, Normal S2, No murmurs, Other (Tachycardia) Abdomen: Normal bowel sounds, Soft, Other (Ventral hernia; reducible; no ascites palpated) Genitourinary: Other (Junior's) Extremities: Other (Stasis changes of the skin of lower extremities with nonpitting edema) Neuro: Other (Lethargic; opening eyes to painful stimuli) Psych/Mental Status: Other (Lethargic) Medications Current Medications Medications Dose Ordered Sig/Kenisha Route Start Time Stop Time Status Last Admin Dose Admin Spironolactone 25 mg DAILY PO 05/07/24 10:00 05/07/24 10:38 25 MG Diagnostic Test (Pha) 1 strip ACHS 05/07/24 07:00 05/08/24 05:42 1 STRIP Dextrose 50 ml UD PRN IV 05/06/24 22:15 Sodium Chloride 10 ml Q8HR IV 05/07/24 06:00 05/08/24 05:31 10 ML Acetaminophen/ Hydrocodone Bitart 1 tab Q4HP PRN PO 05/06/24 22:15 Ondansetron HCl 4 mg Q4HP PRN IV 05/06/24 22:15 Docusate Sodium 100 mg BIDPRN PRN PO 05/06/24 22:15 Ibuprofen 600 mg Q6HP PRN PO 05/06/24 22:15 Lorazepam 1 mg Q8HPRN PRN IV 05/06/24 23:30 05/07/24 05:17 1 MG Furosemide 20 mg DAILY IV 05/08/24 10:00 Lactulose 30 ml BID NH 05/07/24 22:00 05/08/24 00:33 30 ML Enoxaparin Sodium 40 mg DAILY SC 05/08/24 10:00 Piperacillin Sod/ Tazobactam Sod 100 ml @ 25 mls/hr Q8HR IV 05/08/24 06:45 05/08/24 08:54 25 MLS/HR Laboratory Results Laboratory Tests 05/08/24 08:45 Chemistry Test 05/08/24 08:45 Albumin 2.9 g/dL (3.2-4.8) L Calcium Level 9.0 mg/dL (8.7-10.4) Magnesium Level 2.1 mg/dL (1.6-2.6) Total Protein 6.4 g/dL (5.7-8.2) LFT Test 05/08/24 08:45 Alanine Aminotransferase (ALT) 63 U/L (7-40) H Alkaline Phosphatase U/L (46-116) Aspartate Amino Transferase (AST) U/L (13-40) Total Bilirubin mg/dL (0.2-1.0) HgA1c, TSH Test 05/08/24 08:45 Thyroid Stimulating Hormone (TSH) Pending Urinalysis Test 05/07/24 01:30 Urine Color Dark-yellow (Yellow) Urine Clarity Turbid (Clear) H Urine pH 5.5 (5.0-9.0) Urine Specific [place] 1.015 (1.001-1.035) Urine Protein 2+ (Negative) H Urine Ketones Negative (Negative) Urine Blood 2+ /uL (Negative) H Urine Nitrite Negative (Negative) Urine Bilirubin 1+ (Negative) Urine Urobilinogen 2 mg/dL (Negative) H Urine Leukocyte Esterase 3+ /uL (Negative) Urine RBC 8 /hpf (0 - 3) Urine Microscopic WBC 193 /HPF (0-3) H Urine Squamous Epithelial Cells Few /hpf (<5) Urine Bacteria Mod /hpf (None Seen) H Urine Hyaline Casts Few /lpf (0 - 2) Urine Mucus Few (None Seen) Urine Glucose Normal mg/dL (Normal) Blood Gas Results Test 05/07/24 13:48 05/07/24 18:53 05/08/24 08:27 Arterial Blood pH 7.119 (7.350-7.450) 7.280 (7.350-7.450) 7.388 (7.350-7.450) FiO2 % 45.0 55.0 35.0 Microbiology Microbiology Date/Time Source Procedure Growth Status 05/07/24 01:30 Voided Urine Urine Culture - Preliminary Resulted Assessment/Plan Assessment/Plan A 63-year-old male patient; with multiple comorbidities; who presented to the emergency department because of altered mental status. #Acute hepatic/metabolic/toxic encephalopathy in the setting of methamphetamine use disorder, liver cirrhosis, and sepsis; received multiple doses of Narcan; ordered and reviewed head CT; reviewed lab work including drug screen and ammonia level; lethargic with episodes of agitation; continue current medical management with lorazepam as indicated; discontinued gabapentin and morphine for now; continue close monitoring #Acute hypoxic and hypercapnic respiratory failure in the setting of decreased respiratory rate and suspected aspiration pneumonia; reviewed the available imaging studies and ABGs; received multiple doses of Narcan; pulmonology is following; on high-flow nasal cannula; continue close monitoring #Acute hepatic encephalopathy in the setting of hepatitis C decompensated liver cirrhosis; elevated ammonia level; consulted GI; continue lactulose along with furosemide and spironolactone; NG tube in place; continue close monitoring #Hepatitis-C decompensated liver cirrhosis with anasarca, trace ascites, coagulopathy, elevated liver enzymes, and thrombocytopenia; details and management as above; continue close monitoring #History of GI bleed requiring blood transfusions; no active bleeding at this time; continue close monitoring #Sepsis due to suspected aspiration pneumonia and suspected UTI; reviewed the imaging studies and urinalysis; continue IV Zosyn; urine cultures pending; pending blood cultures; continue close monitoring #NELIDA in the setting of sepsis; most likely vasomotor nephropathy; avoid nephrotoxic agents; continue close monitoring #NSTEMI; likely type 2, demand ischemia; secondary above; elevated troponin levels; reviewed echocardiogram and EKG; aspirin discontinued by cardiology; telemetry; cardiology is following; continue close monitoring #Tachycardia; telemetry; cardiology is following; TSH within normal limits; EKG showed SVT; management as per cardiology; continue monitoring #Normocytic anemia; inflammatory; no signs/symptoms of active bleeding at this time; continue close monitoring #Hypoglycemia due to decreased oral intake; continue hypoglycemia protocol; previous A1c was below 4%; continue close monitoring #DVT prophylaxis as per cardiology recommendations; platelets count above 05407; continue close monitoring for active bleeding and hemoglobin level along with platelets count #Methamphetamine use disorder; to addressed when the patient is awake; continue monitoring #Morbid obesity; to address when the patient is awake; continue monitoring 66 minutes of critical care time Late Entry. This medical document was created using an electronic medical record system with computerized dictation system. Although this document has been carefully reviewed, there might still be some phonetic and typographical errors. These areas are purely typographical due to imperfections of the software programs, and do not reflect any compromise in the patient's medical care. Plan discussed with: Other (Nurse) My Orders Orders - OCTAVIA TIWARI MD Procedure Category Date Status Time Abg W/ Co-Ox RT 05/07/24 Logged 13:30 *Consult CONS 05/07/24 Transmitted / 14:00 Transfer Orders XFER 05/07/24 Transmitted 14:41 Complete Blood Count LAB 05/09/24 Verified 05:00 Complete Blood Count LAB 05/10/24 Verified 05:00 Complete Blood Count LAB 05/11/24 Verified 05:00 Complete Blood Count LAB 05/12/24 Verified 05:00 Comprehensive LAB 05/09/24 Verified Metabolic Panel 04:00 * Gi [facility] [place] CONS 05/07/24 Transmitted 19:20 Enoxaparin Sodium PHA 05/08/24 In Process (Lovenox) 10:00 Piperacillin-Tazob PHA 05/08/24 In Process 3.375gm (Zosyn 3.375g 06:45 Blood Culture CATHRYN 05/08/24 In Process 06:43 * Cardiology Consult CONS 05/08/24 Transmitted 09:58 Date of Service: May 08, 2024 Billing Provider: OCTAVIA TIWARI MD Common Visit Codes: [id number] CARE 30-74 MIN (66 minutes) OCTAVIA TIWARI MD May 08, 2024 11:30
[2024-05-08] MEDS: ENOXAPARIN SOD 40 MG/0.4 ML SYRINGE SC SCH (11:41)
--- NOTE | 2024-05-08 11:41 | DVHPN2 ---
Consult Progress Note Objective vital signs Vital Sign Date Time Temp Pulse Resp B/P (MAP) Pulse Ox O2 Delivery O2 Flow Rate FiO2 05/08/24 10:24 135 16 92 50.0 55 05/08/24 09:00 123/85 (98) 05/08/24 08:00 Hi-Flow NC 05/08/24 04:00 98.8 98.8 Total Intake and Output 05/07/24 05/07/24 05/08/24 15:00 23:00 07:00 Intake Total 50 ml 0 ml 0 ml Output Total 1250 ml 690 ml Balance 50 ml -1250 ml -690 ml medications Current Medications Medications Dose Ordered Sig/Kenisha Route Start Time Stop Time Status Last Admin Dose Admin Spironolactone 25 mg DAILY PO 05/07/24 10:00 05/07/24 10:38 25 MG Diagnostic Test (Pha) 1 strip ACHS 05/07/24 07:00 05/08/24 05:42 1 STRIP Dextrose 50 ml UD PRN IV 05/06/24 22:15 Sodium Chloride 10 ml Q8HR IV 05/07/24 06:00 05/08/24 05:31 10 ML Acetaminophen/ Hydrocodone Bitart 1 tab Q4HP PRN PO 05/06/24 22:15 Ondansetron HCl 4 mg Q4HP PRN IV 05/06/24 22:15 Docusate Sodium 100 mg BIDPRN PRN PO 05/06/24 22:15 Ibuprofen 600 mg Q6HP PRN PO 05/06/24 22:15 Lorazepam 1 mg Q8HPRN PRN IV 05/06/24 23:30 05/07/24 05:17 1 MG Furosemide 20 mg DAILY IV 05/08/24 10:00 Lactulose 30 ml BID [place] 05/07/24 22:00 05/08/24 00:33 30 ML Enoxaparin Sodium 40 mg DAILY SC 05/08/24 10:00 Piperacillin Sod/ Tazobactam Sod 100 ml @ 25 mls/hr Q8HR IV 05/08/24 06:45 05/08/24 08:54 25 MLS/HR Examination: GENERAL:Abnormal, LUNGS:Abnormal (Diminished bilateral lower lobes), CVS:Abnormal (Atrial fibrillation with rapid ventricular response), NEURO:Abnormal laboratory and microbiology Laboratory Tests 05/08/24 08:45 Test 05/08/24 08:45 Range/Units Serum Glucose 100 74-106 mg/dL Problem List/Assessment/Plan Problem List/Assessment/Plan Atrial fibrillation with rapid ventricular response, new onset Acute toxic encephalopathy 2/2 methamphetamines NSTEMI likely type 2 secondary to above Liver cirrhosis secondary to hepatitis-C Anasarca/ascites secondary to above Hx of GI bleed with transfusions Acute kidney injury on CKD Anemia and chronic disease Thrombocytopenia Plan/Recommendation (Dr. Roberson) Case discussed with . The patient presents as an NSTEMI type 2 secondary to drug overdose with methamphetamine use. Transthoracic echocardiogram revealed left ventricular ejection fraction of 60% with normal RV function. Today, the patient was noted to go into an atrial fibrillation with rapid ventricular response. ER staff administered diltiazem 20 mg IV once. [id number] VASc score: 1 point, HAS-BLED: score: 2 points. Blood pressure is on low side, unable to start beta kamille for rate control. We will initiate antiarrhythmic agent, amiodarone (closely monitor LFT's given hx of cirrhosis). The patient will also be loaded on digoxin as renal function permits. Consider initiating beta-kamille once blood pressure permits. Hold anticoagulation at this time given thrombocytopenia and history of GI bleed requiring blood transfusions. Initiate SCDs in the meantime. Consider NOAC if feasible prior to discharge. Monitor and replete electrolytes as needed. Close cardiac surveillance. Thank you for allowing us to participate in this patient's care. Please call if you have any questions or concerns. Critical care time: 40 min. This medical document was created using an electronic medical record system with voice recognition software and computerized dictation system. Although this document has been carefully reviewed, there might still be some phonetic and typographical errors. Occasional wrong-word or ``sound-alike substitutions may have occurred due to the inherent limitations of voice recognition software. These areas are purely typographical due to imperfections of the software programs and do not reflect any compromise in the patient's medical care. Please read the chart carefully and recognize, using context, where these substitutions have occurred. Plan discussed with: Other (Bedside RN) Date of Service: May 08, 2024 Billing Provider: LUCILLE HENDERSON Common Visit Codes: [id number] INP/OBS CARE(HIGH) LUCILLE HENDERSON May 08, 2024 11:41
[2024-05-08] MEDS: DIGOXIN (250MCG/ML) 2 ML AMPULE IV ONE (12:34)
--- NOTE | 2024-05-08 14:31 | DVHINCON2 ---
Date of service: May 08, 2024 Referring Physician LYNNE Reason for Consultation Cirrhosis Hepatic encephalopathy History of Present Illness The patient is a 63-year-old male with a history of polysubstance abuse, UTI, diabetes, CHF, hepatitis-C, cirrhosis, admitted with decreased level of con sciousness after being found down in a car unresponsive, received Narcan for suspected drug overdose, known history of cirrhosis, NSTEMI, NELIDA, GI consultation obtained for GI and liver issues. Patient is obtunded not able to give history. Past Medical History As above Past Surgical History Noncontributory Family History: Patient reports no known family medical history. Family History Noncontributory Social History Polysubstance abuse Allergies: Coded Allergies: NO KNOWN ALLERGIES (Unverified , 09/25/21) Home Meds Active Scripts Spironolactone (Aldactone) 25 Mg Tab, 50 MG PO DAILY for 30 Days, #60 TAB Prov:JANETT SILVERMAN [facility] 07/09/23 Rifaximin (Xifaxan) 550 Mg Tab, 550 MG PO BID for 30 Days, #60 TAB Prov:JANETT SILVERMAN [facility] 07/09/23 Furosemide (Furosemide) 20 Mg Tab, 60 MG PO BIDD for 30 Days, #180 TAB Prov:JANETT SILVERMAN [facility] 07/09/23 Lactulose (Lactulose) 10 Gm/15 Ml Trista, 30 ML PO Q2HR for 30 Days, #30 ML Prov:JANETT SILVERMAN [facility] 07/09/23 Ergocalciferol (VITAMIN D 89321 UNIT) 50,000 [place], [address] UNIT PO Q7D for 30 Days, #10 CAP Prov:JANETT SILVERMAN [facility] 07/09/23 Insulin Glargine (Lantus) 100 Unit/Ml Inj, 15 UNITS SC BID@1000,2200, #10 INJ Prov:ADEOLA OROPEZA MD 10/03/21 Reported Medications Sodium Bicarbonate (Sodium Bicarbonate) 650 Mg Tab, PO 06/30/23 Pot Phosphate Dibasic & Monoba (Neutra-Phos) 1 Tab Tb, PO 06/30/23 Gabapentin (Gabapentin) 300 Mg Cap, 1 CAP PO Q8H 06/30/23 Morphine Sulfate (Morphine Sulfate) 30 Mg Tab, 1 TAB PO TID 06/30/23 Current Medications Current Medications Medications (Trade) Dose Ordered Sig/Kenisha Route PRN Reason Start Time Stop Time Status Last Admin Ceftriaxone Sodium 50 ml @ 100 mls/hr DAILY@09 IV 05/08/24 09:00 05/08/24 06:43 DC Furosemide (Lasix Injection) 20 mg DAILY IV 05/08/24 10:00 Lactulose 30 ml BID SD 05/07/24 22:00 05/08/24 00:33 Enoxaparin Sodium (Lovenox) 40 mg DAILY SC 05/08/24 10:00 05/08/24 11:41 Piperacillin Sod/ Tazobactam Sod 100 ml @ 25 mls/hr Q8HR IV 05/08/24 06:45 05/08/24 08:54 Review of Systems Unable to be obtained other than HPI Vital Signs Vital Signs Date Time Temp Pulse Resp B/P (MAP) Pulse Ox O2 Delivery O2 Flow Rate FiO2 05/08/24 12:34 151 05/08/24 10:24 16 92 50.0 55 05/08/24 10:00 81/53 (62) 05/08/24 08:00 98.4 98.4 05/08/24 08:00 Hi-Flow NC Physical Exam General: Obtunded HEENT: NC/AT EOMI dry mucous membranes Heart: Tachycardic regular rhythm Abdomen: Soft nontender nondistended Extremity: No clubbing cyanosis or edema Neuro: Confused lethargic Labs/Diagnostic Data Labs Test 05/08/24 12:09 05/08/24 08:45 05/08/24 08:27 05/07/24 13:48 Range/Units POC Glucose 88 70-106 mg/dl White Blood Count 4.0 #L 4.4-10.8 10^3/uL Red Blood Count 2.86 L 4.5-5.90 10^6/uL Hemoglobin 8.8 L 13.5-17.5 g/dL Hematocrit 27.0 L 41.0-53.0 % Mean Corpuscular Volume 94.5 80.0-100.0 fL Mean Corpuscular Hemoglobin 30.7 28.0-32.0 pg Mean Corpuscular Hemoglobin Concent 32.5 32.0-36.0 g/dL Red Cell Distribution Width 19.5 H 11.8-14.3 % Platelet Count 81 L 140-450 10^3/uL Mean Platelet Volume 9.8 6.9-10.8 fL Neutrophils (%) (Auto) 77.1 37.0-80.0 % Lymphocytes (%) (Auto) 8.7 L 10.0-50.0 % Monocytes (%) (Auto) 12.0 0.0-12.0 % Eosinophils (%) (Auto) 2.0 0.0-7.0 % Basophils (%) (Auto) 0.2 0.0-2.0 % Neutrophils # (Auto) 3.1 1.6-8.6 10 ^3/uL Lymphocytes # (Auto) 0.3 L 0.4-5.4 10 ^3/uL Monocytes # (Auto) 0.5 0-1.3 10 ^3/uL Eosinophils # (Auto) 0.1 0-0.8 10 ^3/uL Basophils # (Auto) 0 0-0.2 10 ^3/uL Nucleated Red Blood Cells 0.4 % Sodium Level 148 #H 136-145 mmol/L Potassium Level 3.8 3.5-5.1 mmol/L Chloride Level 113 H 98-107 mmol/L Carbon Dioxide Level 20-31 mmol/L Anion Gap 9 5-15 Blood Urea Nitrogen 27 H 9-23 mg/dL Creatinine 0.700-1.30 mg/dL Glomerular Filtration Rate Calc 53 >90 mL/min BUN/Creatinine Ratio 18.2 10.0-20.0 Serum Glucose 100 74-106 mg/dL Calcium Level 9.0 8.7-10.4 mg/dL Magnesium Level 2.1 1.6-2.6 mg/dL Total Bilirubin 0.2-1.0 mg/dL Aspartate Amino Transferase (AST) 13-40 U/L Alanine Aminotransferase (ALT) 63 H 7-40 U/L Alkaline Phosphatase 46-116 U/L Total Protein 6.4 5.7-8.2 g/dL Albumin 2.9 L 3.2-4.8 g/dL Thyroid Stimulating Hormone (TSH) 0.59 0.55-4.78 uIU/mL Blood Gas Specimen Type Arterial Blood Gas Sample Site Right radial Blood Gas Patient Temperature 37.0 Arterial Blood Date Drawn [id number] Arterial Blood pH 7.388 7.350-7.450 Arterial Blood Partial Pressure CO2 42.6 35.0-48.0 mmHg Arterial Blood Partial Pressure O2 60.2 L 83.0-108.0 mmHg Arterial Blood HCO3 25.1 21.0-28.0 mmol/L Arterial Blood Oxygen Saturation 90.1 L 94.0-98.0 % Arterial Blood Base Excess 0.0 -2.0-3.0 mmol/L Arterial Blood Oxyhemoglobin 88.5 L 94.0-98.0 % Arterial Blood Carboxyhemoglobin 1.5 0.5-1.5 % Arterial Blood Methemoglobin 0.3 0.0-1.5 % Mike Test Yes Blood Gas Total Hemoglobin 9.60 L 13.5-17.5 g/dL Blood Gas Liter Flow 40.00 Blood Gas Modality High flow FiO2 % 35.0 Blood Gas Critical Value Read Back Yes Blood Gas Notified Whom breanna Pearson md Blood Gas Notified Time [id number] Blood Gas Notified By Acetylene Plant Operator maritza frost Test 05/07/24 02:55 05/07/24 01:30 05/06/24 21:02 05/06/24 17:20 Range/Units Ammonia 84 H 11-32 umol/L B-Type Natriuretic Peptide 504.68 0-100 pg/mL Urine Color Dark-yellow Yellow Urine Clarity Turbid H Clear Urine pH 5.5 5.0-9.0 Urine Specific [place] 1.015 1.001-1.035 Urine Protein 2+ H Negative Urine Ketones Negative Negative Urine Blood 2+ H Negative /uL Urine Nitrite Negative Negative Urine Bilirubin 1+ Negative Urine Urobilinogen 2 H Negative mg/dL Urine Leukocyte Esterase 3+ Negative /uL Urine RBC 8 0 - 3 /hpf Urine Microscopic WBC 193 H 0-3 /HPF Urine Squamous Epithelial Cells Few <5 /hpf Urine Bacteria Mod H None Seen /hpf Urine Hyaline Casts Few 0 - 2 /lpf Urine Mucus Few None Seen Urine Glucose Normal Normal mg/dL Urine Opiates Screen Pos NEGATIVE Urine Fentanyl Screen Neg NEGATIVE Urine Barbiturates Screen Neg NEGATIVE Urine Phencyclidine Screen Neg NEGATIVE Urine Amphetamines Screen Pos NEGATIVE Urine Benzodiazepines Screen Neg NEGATIVE Urine Cocaine Screen Neg NEGATIVE Urine Cannabinoids Screen Neg NEGATIVE Troponin I High Sensitivity 454 *H </=54 ng/L Plasma/Serum Blood Alcohol < 3.0 <10 mg/dL Microbiology Date/Time Source Procedure Growth Status 05/07/24 01:30 Voided Urine Urine Culture - Preliminary Resulted Assessment 1. Decompensated cirrhosis with a history of hepatitis-C 2. Hepatic encephalopathy 3. Ascites and anasarca 4. Thrombocytopenia 5. Anemia 6. Substance abuse history Problems(with codes): (1) Liver failure (2) Ascites (3) Cirrhosis (4) Hepatitis C (5) Drug abuse (6) Transaminitis (7) Generalized weakness (8) Hepatic encephalopathy Plan/Recommendation 1. Continue with lactulose 2. Consider adding rifaximin 3. Follow labs, replace electrolytes, IV fluids 4. Follow H&H, consider EGD 5. Monitor for signs of encephalopathy, and or improvement 6. Avoid hepatotoxic medications 7. Continue with supportive care 8. We will be signing off to Dr. Arias in the morning 9. Protonix IV Plan discussed with: Other PARAM NEVAREZ MD May 08, 2024 14:31
[2024-05-08] MEDS: AMIODARONE BOLUS KIT 100 ML IV ONE (14:48)
[2024-05-08] MEDS: AMIODARONE 360mg/200mL PREMIX 200 ML IV ONE (15:12)
[2024-05-08] MEDS: AMIODARONE 360mg/200mL PREMIX 200 ML IV SCH (21:12)
[2024-05-08] MEDS: PANTOPRAZOLE 40 MG/10 ML VIAL INJ IV SCH (22:09)
--- NOTE | 2024-05-08 22:58 | DVHPN2 ---
Progress Note - Dictate Date Seen: May 08, 2024 Medical Necessity Reason Pt with a Central, PICC or Fol: Yes The following are medically ne: Mcduffie Catheter Reason for mcduffie catheter: Strict I&O Subjective Patient seen and examined at bedside. Remains on supplemental oxygen Overnight events reviewed. vital signs Vital Sign Date Time Temp Pulse Resp B/P (MAP) Pulse Ox O2 Delivery O2 Flow Rate FiO2 05/08/24 22:36 94 Hi-Flow Heated NC+ 30 30 30 05/08/24 22:36 123 20 05/08/24 22:25 98.1 136/78 (97) 98.1 Total Intake and Output 05/07/24 05/07/24 05/08/24 15:00 23:00 07:00 Intake Total 50 ml 0 ml 0 ml Output Total 1250 ml 690 ml Balance 50 ml -1250 ml -690 ml medications Current Medications Medications Dose Ordered Sig/Kenisha Route Start Time Stop Time Status Last Admin Dose Admin Spironolactone 25 mg DAILY PO 05/07/24 10:00 05/07/24 10:38 25 MG Diagnostic Test (Pha) 1 strip ACHS 05/07/24 07:00 05/08/24 22:18 1 STRIP Dextrose 50 ml UD PRN IV 05/06/24 22:15 Sodium Chloride 10 ml Q8HR IV 05/07/24 06:00 05/08/24 22:09 10 ML Acetaminophen/ Hydrocodone Bitart 1 tab Q4HP PRN PO 05/06/24 22:15 Ondansetron HCl 4 mg Q4HP PRN IV 05/06/24 22:15 Docusate Sodium 100 mg BIDPRN PRN PO 05/06/24 22:15 Ibuprofen 600 mg Q6HP PRN PO 05/06/24 22:15 Lorazepam 1 mg Q8HPRN PRN IV 05/06/24 23:30 05/08/24 15:49 1 MG Furosemide 20 mg DAILY IV 05/08/24 10:00 Lactulose 30 ml BID [place] 05/07/24 22:00 05/08/24 00:33 30 ML Enoxaparin Sodium 40 mg DAILY SC 05/08/24 10:00 05/08/24 11:41 40 MG Piperacillin Sod/ Tazobactam Sod 100 ml @ 25 mls/hr Q8HR IV 05/08/24 06:45 05/08/24 22:09 25 MLS/HR Pantoprazole Sodium 40 mg BID IV 05/08/24 22:00 05/08/24 22:09 40 MG objective Gen.: Patient lying in bed in no apparent distress. On supplemental oxygen. Head: Normocephalic, atraumatic. Eyes: EOMI/PERRLA. Ears: Normal hearing. Normal anatomy. Neck/trachea: Trachea midline, supple. Nose: Normal external anatomy. Mouth: Moist mucous membranes. Chest: Decreased air entry bilaterally. No wheezing or rhonchi. Cardiovascular: Positive S1, positive S2. Regular rate and rhythm. Abdomen: Positive bowel sounds in all 4 quadrants. Soft, non-tender, non- distended. : Deferred. Rectal: Deferred. Skin: Warm, dry. Intact. Extremities: 2+ radial pulses bilaterally. No lower extremity edema. Neuro: Awake, alert, oriented x3. No gross motor or sensory deficits. Cranial nerves II through XII intact. Gait not assessed. laboratory and microbiology Laboratory Tests 05/08/24 08:45 Test 05/08/24 08:45 Range/Units Serum Glucose 100 74-106 mg/dL Assessment/Plan Impression: Acute hypoxic respiratory failure Acute hypercarbic respiratory failure Dependence on supplemental oxygen Metabolic acidosis Drug abuse/methamphetamine abuse Elevated troponin Hepatic encephalopathy Urinary tract infection Pulmonary edema. Nicotine dependence Events: Remains on supplemental oxygen Transitioned to HFNC at 12 LPM, FiO2 35% Taper O2 as tolerated Monitor respiratory status closely Remains tachy Amiodarone drip Obtain cardiology consult Continue antibiotics Follow up cultures Incentive spirometry Head of bed elevation Aspiration precautions Diurese w/ Lasix and spironolactone Monitor renal function. Monitor electrolytes. Supplement as necessary. Monitor hemoglobin GI consult GI recommendations appreciated. ABG reviewed, compensated. Labs and imaging reviewed. Rest of plan as noted below. Plan: Supplemental oxygen Titrate to keep O2 sats above 92%. Taper O2 as tolerated. CXR reviewed, demonstrates interval increase in left lung base pulmonary markings suggestive of possible developing infiltrate. Stable diffuse prominence of the pulmonary vasculature Continue antibiotics Follow up cultures Head of bed elevation Aspiration precautions Smoking cessation education given. Counseled against drug abuse. Diurese w/ Lasix and spironolactone Monitor renal function. Monitor electrolytes. Supplement as necessary. Monitor ins and outs. DVT prophylaxis. Prognosis: Poor given patient's multiple co-morbidities. Condition: Critical Rest of plan per hospitalist and other consultants. A total of 35 minutes of critical care time was spent reviewing the patient record, examining the patient, making a diagnostic and therapeutic plan, discussing this plan with the medical personnel, following up on diagnostic studies and following the patient for clinical stability excluding any and all procedures. At least 50% of this time was spent in direct, [id number] contact. Thank you, KAVEH Granados, for allowing me to participate in this patient's care. Further recommendations will depend on the patient's clinical course. Please do not hesitate to contact me if you have any questions or concerns. This medical document was created using an electronic medical record system with [employer] computerized dictation system. Although these documentations are being carefully reviewed, there may still be some phonetic and typographical changes. The errors are purely typographical, due to imperfection on the software program, and do not reflect any compromise in the patient's medical care. Plan discussed with: Other (MARCOS Langley) Critical Care Time(min): 35 JITENDRA WATERS MD May 08, 2024 22:58
[2024-05-09] VITALS (72 sets, daily range): BP systolic 102–162; BP diastolic 50–105; PULSE 61–88; RESP 13–26; TEMP 97.4–98.5; O2SAT 88–100
[2024-05-09 04:05] LABS: Basophils # (auto) 0 10 ^3/uL (0-0.2); Basophils % (auto) 0.3 % (0.0-2.0); Eosinophils # (auto) 0.2 10 ^3/uL (0-0.8); Eosinophils % (auto) 6.3 % (0.0-7.0); Hematocrit 25.9 % (41.0-53.0); Hemoglobin 8.2 g/dL (13.5-17.5); Lymphocytes # (auto) 0.2 10 ^3/uL (0.4-5.4); Lymphocytes % (auto) 6.3 % (10.0-50.0); Mean Corpuscular Hemoglobin 29.5 pg (28.0-32.0); Mean Corpuscular Hgb Conc. 31.7 g/dL (32.0-36.0); Mean Corpuscular Volume 92.8 fL (80.0-100.0); Monocytes # (auto) 0.2 10 ^3/uL (0-1.3); Monocytes % (auto) 6.7 % (0.0-12.0); Neutrophils # (auto) 2.9 10 ^3/uL (1.6-8.6); Neutrophils % (auto) 80.4 % (37.0-80.0); Nucleated Red Blood Cells % 0.1 %; Platelet Count (auto) 78 10^3/uL (140-450); Red Blood Cells 2.79 10^6/uL (4.5-5.90); Red Cell Distribution Width 19.6 % (11.8-14.3); White Blood Cell 3.6 10^3/uL (4.4-10.8)
[2024-05-09 04:27] LABS: Anion Gap 9 (5-15); BUN/Creatinine Ratio 22.4 (10.0-20.0); Carbon Dioxide 27 mmol/L (20-31); Potassium 3.9 mmol/L (3.5-5.1); Total Protein 6.1 g/dL (5.7-8.2)
[2024-05-09 04:35] LABS: Alanine Aminotransferase 59 U/L (7-40); Albumin 2.9 g/dL (3.2-4.8); Alkaline Phosphatase 263 U/L (46-116); Aspartate Aminotransferase 84 U/L (13-40); Bilirubin, Total 5.9 mg/dL (0.2-1.0); Blood Urea Nitrogen 28 mg/dL (9-23); Chloride 113 mmol/L (98-107); Glucose 125 mg/dL (74-106); Sodium 149 mmol/L (136-145)
[2024-05-09] MEDS: LORazepam 2MG/ML-1ML VIAL IV ONE (04:51)
[2024-05-09 11:13] LABS: Base Excess -0.5 mmol/L (-2.0-3.0)
--- NOTE | 2024-05-09 11:19 | DVHPNRES ---
Progress Note Date Seen: May 09, 2024 Resident Creating Document: JONNY KENNEDY Medical Necessity Reason Pt with a Central, PICC or Fol: Yes The following are medically ne: Mcduffie Catheter Reason for mcduffie catheter: Strict I&O Subjective Review of Systems Patient is 63 years old male with past medical history of cirrhosis of liver, hepatitis C infection, liver shunt, chronic pain, CHF, diabetes mellitus, UTI, prostate cancer presented to the [facility] for evaluation of drug overdose. Information was gathered from reviewing the chart and talking to patient's family. As per patient's patient was found gargling and unresponsive in a car, possibly overdose of morphine, so EMS was called. As per patient might have overdosed with morphine, he had 90 of morphine which was reduced to 56 unit before arrival. On arrival of the EMS patient was given Narcan and woke up but unable to recall what happened. Initial lab workup revealed WBC 5.4, hemoglobin 9.7, hematocrit 32.2, platelets 88,000, sodium 141, potassium 4.9, BUN 23, creatinine 1.73, GFR 44, glucose 112, AST 105, ALT 65, troponin 454, ammonia 84. Troponin I elevated for 450> 548> 554, BNP 504.68. UDS positive for amphetamine, opiates. Urinalysis positive for urinary tract infection leukocyte esterase 3+, RBC 8, WBC 193, bacteria moderate.. ABG on 05/07/2024 revealed pH 7.11, pCO2 65.3, PO2 91.8, bicarbonate 20.7. Chest x-ray revealing cardiomegaly with pulmonary vascular congestion. CXR on 05/06/2024 revealed- Cardiomegaly with pulmonary vascular congestion. On 05/07/2024 CT abdomen and pelvis revealed-1. No acute findings identified. Ventral hernia seen in the lower abdomen containing multiple loops of nonobstructed small- bowel. Cirrhotic liver.Splenomegaly. Trace abdominopelvic ascites. CT head on 05/07/2024 revealed- No acute intracranial hemorrhage, midline shift or mass effect. Echo 2D on 07/03/2023-Normal left ventricular size and dimension. Normal left ventricular systolic function estimated ejection fraction 55%. There is a grade 1 diastolic dysfunction. Normal right ventricular size and dimension. Normal rightt ventricular systolic function. Patient was admitted at [facility] in July 06, 2023 due to GI bleeding, cirrhosis of liver he had hepatitis-C, cellulitis of the left lower limb, MRSA, blood culture Klebsiella oxytocia Streptococcus mitis, wound culture Enterococcus faecalis, MRSA October 05, 2021, due to sepsis, Streptococcus agalactiae-suspected prosthetic joint infection November 05, 2020. Ascites, hepatitis-C infection, cellulitis of the left lower extremity PMHCancer, cirrhosis of liver, hepatitis C infection, liver shunt, chronic pain, CHF, diabetes mellitus, UTI, prostate cancer PSH-Hernia Repair, left leg surgery has nail on it Family History-Reviewed, noncontributory to the management of this case. Past Social History-The patient lives at home, smokes cigarettes less than 1 pack per day, denies alcohol or illicit drugs abuse. -home medications ergo cholecalciferol, Lasix 20 mg b.i.d., gabapentin 300 mg q.8h, insulin glargine 15 units subcutaneously b.i.d., lactulose 30 mL p.r.n., morphine sulfate, rifaximin 550 b.i.d., spironolactone 50 daily Patient was seen today for clinical evaluation. Labs and chart reviewed. 05/08/2024- the patient was noted to go into an atrial fibrillation with rapid ventricular response. ER staff administered diltiazem 20 mg IV once. [id number] VASc score: 1 point, HAS-BLED: score: 2 points. Patient was seen today for clinical evaluation. Labs and chart reviewed Overnight blood pressure ranging from 109-143/53-79, valves 70-122, temperature 97.3-99.1 I/O- intake 1224, output 1575, negative balance 350 ABG on 05/09/2024 revealed pH 7.44, pCO2 34.6, PO2 65.5, bicarbonate 23.3. Lab revealed WBC 5.4> 6.3> 4.0> 3.6 Hemoglobin 9.7> 9.7> 8.8> 8.2 Platelet 88> 110> 81> 72 Sodium 141> 142> 148> 149 Potassium 4.9> 4.7> 3.8> 3.9 BUN 23>> 27> 28 Serum creatinine 1.73> 1.66> 1.25 INR 1.40> 1.30> 1.39> 1.35> 1.35 Total bilirubin- 6.0> 4.7> 5.9 AST 105> 38> 84 ALT-65> 70> 63> 59 Alkaline phosphatase 287> 276> 263 Ammonia 84 Albumin 3.3> 2.9> 2.9 Urine culture on 05/07/2024 preliminary >100,000 CFU/mL Klebsiella pneumoniae ESBL, started on ertapenem 05/08/2024-blood culture preliminary no growth MRSA screening negative Provider Called and spoke to patient's Lorna, , discussed patient's current medical condition, plan of care and answered her questions Objective vital signs Vital Sign Date Time Temp Pulse Resp B/P (MAP) Pulse Ox O2 Delivery O2 Flow Rate FiO2 05/09/24 09:26 118/60 05/09/24 07:30 76 19 96 Room Air* 0 30 Hi-Flow Heated NC+ 30 05/09/24 03:00 98.0 98.0 Total Intake and Output 05/08/24 05/08/24 05/09/24 14:59 22:59 06:59 Intake Total 575 ml 391.64 ml 258.28 ml Output Total 675 ml 900 ml Balance 575 ml -283.36 ml -641.72 ml medications Current Medications Medications Dose Ordered Sig/Kenisha Route Start Time Stop Time Status Last Admin Dose Admin Spironolactone 25 mg DAILY PO 05/07/24 10:00 05/07/24 10:38 25 MG Diagnostic Test (Pha) 1 strip ACHS 05/07/24 07:00 05/09/24 07:00 1 STRIP Dextrose 50 ml UD PRN IV 05/06/24 22:15 Sodium Chloride 10 ml Q8HR IV 05/07/24 06:00 05/09/24 06:00 10 ML Acetaminophen/ Hydrocodone Bitart 1 tab Q4HP PRN PO 05/06/24 22:15 Ondansetron HCl 4 mg Q4HP PRN IV 05/06/24 22:15 Docusate Sodium 100 mg BIDPRN PRN PO 05/06/24 22:15 Ibuprofen 600 mg Q6HP PRN PO 05/06/24 22:15 Lorazepam 1 mg Q8HPRN PRN IV 05/06/24 23:30 05/09/24 08:18 1 MG Furosemide 20 mg DAILY IV 05/08/24 10:00 05/09/24 09:26 20 MG Lactulose 30 ml BID [place] 05/07/24 22:00 05/08/24 00:33 30 ML Enoxaparin Sodium 40 mg DAILY SC 05/08/24 10:00 05/08/24 11:41 40 MG Piperacillin Sod/ Tazobactam Sod 100 ml @ 25 mls/hr Q8HR IV 05/08/24 06:45 05/09/24 06:00 25 MLS/HR Pantoprazole Sodium 40 mg BID IV 05/08/24 22:00 05/09/24 09:23 40 MG Examination General examination- confused disoriented, drowsy HEENT- PEERLA, no acute nasal discharge Cardiovascular- S1-S2 audible, rate and rhythm regular, no murmur Respiratory- CTAB, no wheeze or rhonchi Gastrointestinal-nontender, bowel sound+. Abdomen distended+, abdominal hernia noted Musculoskeletal-no acute joint swelling or tenderness or redness# Lower extremity- + bilateral leg edema+ Neurological- cranial nerves intact, no acute dysarthria or dysphagia Psychiatry- drowsy, dizzy Skin- bilateral lower extremity skin pigmentation laboratory and microbiology Laboratory Tests 05/09/24 03:28 Test 05/09/24 03:28 Range/Units Serum Glucose 125 H 74-106 mg/dL Microbiology Date/Time Source Procedure Growth Status 05/08/24 08:45 Blood Blood Culture - Preliminary NO GROWTH AFTER 24 HOURS OF INCUBATION. Resulted 05/07/24 21:09 Nose MRSA Screen - Final Complete 05/07/24 01:30 Voided Urine Urine Culture - Preliminary Resulted Problem List/Assessment/Plan Problem List/Assessment/Plan Assessment and plan Neurology -hepatic encephalopathy/toxic encephalopathy/metabolic encephalopathy due to cirrhosis of liver -substance abuse -amphetamine -avoid dehydration and nephrotoxic and hepatotoxic Cardiovascular -Atrial fibrillation with rapid ventricular response, new onset -CHF likely diastolic, LVEF 55%, -acute pulmonary edema -NSTEMI type 2 likely demand led ischemia -continue current management Respiratory -acute hypoxic respiratory failure likely due to pneumonia Gram-positive versus Gram-negative Acute hypercarbic respiratory failure -continue current management Gastrointestinal -hepatic encephalopathy -hepatitis-C positive -cirrhosis of liver -melena -Hepatitis-C decompensated liver cirrhosis with anasarca, - trace ascites, coagulopathy, -transaminitis -suspected spontaneous bacterial peritonitis -status post gastroenterology consult by Dr. Arias --continue rifaximin Continue IV antibiotic as prescribed -avoid dehydration and nephrotoxic and hepatotoxic drugs Genitourinary/renal -hepatorenal syndrome - dehydration and hepatotoxic and nephrotoxic drugs Infectious -sepsis due to UTI/pneumonia -spontaneous bacterial peritonitis -Urine culture on 05/07/2024 preliminary >100,000 CFU/mL Klebsiella pneumoniae ESBL, started on ertapenem [employer] -pancytopenia likely due to hypersplenism -hypersplenism -anemia -thrombocytopenia -leukopenia -monitor CBC Metabolic or endocrine -Metabolic acidosis -hypernatremia -hyper ammonia -obesity, BMI 36.4 -substance abuse, amphetamine Skin or elementary Skin in pigmentation on the bilateral lower extremity Lines Mcduffie's Goals of care/advance care planning Code status ; discussed with >15 minutes PUD prophylaxis: Pantoprazole DVT prophylaxis: Lovenox Plan discussed with Dr. Amaro , nursing staff, Total time spent on patient evaluation, chart review, assessment and plan, Critical time spent excluding procedure 81 minutes Plan discussed with: Spouse (RN, ) My Orders My Orders Orders - JONNY KENNEDY Procedure Category Date Status Time Abg W/ Co-Ox RT 05/09/24 Logged 10:40 Behavioral Restraints ORDERS 05/09/24 Transmitted 10:40 Ammonia LAB 05/09/24 Logged 10:40 Place Ng ORDERS 05/09/24 Transmitted 10:40 Date of Service: May 09, 2024 Billing Provider: JUVENAL AMARO MD Common Visit Codes: 14394-XNEAAAIM CARE 30-74 MIN, 93608-[id number] CARE-EACH +30MIN JONNY KENNEDY May 09, 2024 11:19 JUVENAL AMRAO MD May 10, 2024 14:50
--- NOTE | 2024-05-09 14:56 | ECG ---
[facility] Test Date: 2024-05-08 Test Time: 09:53:03 Pat Name: AISHA CARDOZO Department: ER Room: [address] [place] [address] A Gender: M Liquor Merchant: ROSARIO : 1960 Requested By: MARI CABEZAS Order Number: [id number] Reading MD: Luis Roberson Measurements Intervals Staples Rate: 179 P: 209 WV: 246 QRS: 53 QRSD: 86 T: -87 QT: 240 QTc: 415 Interpretive Statements Atrial fibrillation with rapid ventricular response Repolarization abnormality, prob rate related Electronically Signed On 05-12-2024 13:19:44 PDT by Luis Roberson Please click the below link to view image of tracing.
--- NOTE | 2024-05-09 15:43 | DVHPN2 ---
Consult Progress Note Subjective Other Systems: Patient back in normal sinus rhythm on rn cardiac rehab Objective vital signs Vital Sign Date Time Temp Pulse Resp B/P (MAP) Pulse Ox O2 Delivery O2 Flow Rate FiO2 05/09/24 11:45 73 20 96 05/09/24 08:00 98.5 98.5 05/09/24 07:30 Room Air* 0 30 Hi-Flow Heated NC+ 30 Total Intake and Output 05/08/24 05/08/24 05/09/24 15:00 23:00 07:00 Intake Total 575 ml 391.64 ml 274.94 ml Output Total 675 ml 900 ml Balance 575 ml -283.36 ml -625.06 ml medications Current Medications Medications Dose Ordered Sig/Kenisha Route Start Time Stop Time Status Last Admin Dose Admin Spironolactone 25 mg DAILY PO 05/07/24 10:00 05/07/24 10:38 25 MG Diagnostic Test (Pha) 1 strip ACHS 05/07/24 07:00 05/09/24 07:00 1 STRIP Dextrose 50 ml UD PRN IV 05/06/24 22:15 Sodium Chloride 10 ml Q8HR IV 05/07/24 06:00 05/09/24 14:30 10 ML Acetaminophen/ Hydrocodone Bitart 1 tab Q4HP PRN PO 05/06/24 22:15 Ondansetron HCl 4 mg Q4HP PRN IV 05/06/24 22:15 Docusate Sodium 100 mg BIDPRN PRN PO 05/06/24 22:15 Furosemide 20 mg DAILY IV 05/08/24 10:00 05/09/24 09:26 20 MG Lactulose 30 ml BID [place] 05/07/24 22:00 05/09/24 10:00 30 ML Enoxaparin Sodium 40 mg DAILY SC 05/08/24 10:00 05/08/24 11:41 40 MG Pantoprazole Sodium 40 mg BID IV 05/08/24 22:00 05/09/24 09:23 40 MG Rifaximin 550 mg BID PO 05/09/24 22:00 Lorazepam 1 mg Q6HP PRN IV 05/09/24 15:15 UNV Ertapenem 1 gm/ Sodium Chloride 50 ml @ 100 mls/hr DAILY IV 05/10/24 10:00 UNV Methadone HCl 10 mg Q8HR PO 05/09/24 22:00 UNV Thiamine HCl 100 mg DAILY IV 05/10/24 10:00 UNV Examination: GENERAL:Abnormal (Generalized weakness), LUNGS:Normal, CVS:Normal, NEURO:Abnormal (Combative) laboratory and microbiology Laboratory Tests 05/09/24 03:28 Test 05/09/24 03:28 Range/Units Serum Glucose 125 H 74-106 mg/dL Problem List/Assessment/Plan Problem List/Assessment/Plan Atrial fibrillation with rapid ventricular response, now normal sinus rhythm Acute toxic encephalopathy 2/2 methamphetamines NSTEMI likely type 2 secondary to above Liver cirrhosis secondary to hepatitis-C Anasarca/ascites secondary to above Hx of GI bleed with transfusions Acute kidney injury on CKD Anemia and chronic disease Thrombocytopenia Plan/Recommendation (Dr. Roberson) The patient presents as an NSTEMI type 2 secondary to drug overdose with methamphetamine use. Transthoracic echocardiogram revealed left ventricular ejection fraction of 60% with normal RV function. The patient's who was at bedside confirms that the patient has a known history of atrial fibrillation and has been noncompliant with his rate control medication metoprolol. At the time of assessment, the patient is back in a normal sinus rhythm on rn cardiac rehab. Unable to obtain twelve lead electrocardiogram at this time given that the patient has been combative towards staff members. [id number] VASc score: 1 point, HAS-BLED: score: 2 points. Initiate beta-kamille for rate control as tolerated. We will switch to oral antiarrhythmic agent, flecainide (closely monitor LFT's given hx of cirrhosis). Hold anticoagulation at this time given thrombocytopenia and history of GI bleed requiring blood transfusions. Continue SCDs in the meantime. Consider NOAC if feasible prior to discharge. Monitor and replete electrolytes as needed. Close cardiac surveillance. There is no further inpatient cardiac workup indicated at this time. Cardiology will sign off. Please reconsult if needed. Thank you for allowing us to participate in this patient's care. Please call if you have any questions or concerns. Critical care time: 38 min. This medical document was created using an electronic medical record system with voice recognition software and computerized dictation system. Although this document has been carefully reviewed, there might still be some phonetic and typographical errors. Occasional wrong-word or ``sound-alike substitutions may have occurred due to the inherent limitations of voice recognition software. These areas are purely typographical due to imperfections of the software programs and do not reflect any compromise in the patient's medical care. Please read the chart carefully and recognize, using context, where these substitutions have occurred. Plan discussed with: Patient, Spouse, Other (Bedside RN) Date of Service: May 09, 2024 Billing Provider: LUCILLE HENDERSON Common Visit Codes: [id number] CARE 30-74 MIN LUCILLE HENDERSON May 09, 2024 15:43
[2024-05-09] MEDS: METHADONE HCL 10 MG TAB PO ONE (16:50)
[2024-05-09] MEDS: THIAMINE 100mg/ml INJ (200mg/2ml VIAL) IV ONE (16:50)
[2024-05-09] MEDS: rifAXIMin 550 MG TAB PO ONE (16:50)
[2024-05-09 17:13] LABS: Basophils # (auto) 0 10 ^3/uL (0-0.2); Eosinophils # (auto) 0 10 ^3/uL (0-0.8); Hemoglobin 7.7 g/dL (13.5-17.5); Lymphocytes # (auto) 0.2 10 ^3/uL (0.4-5.4); Monocytes # (auto) 0.4 10 ^3/uL (0-1.3); Neutrophils # (auto) 2.9 10 ^3/uL (1.6-8.6); White Blood Cell 3.6 10^3/uL (4.4-10.8)
[2024-05-09 17:15] LABS: Basophils % (auto) 0.1 % (0.0-2.0); Eosinophils % (auto) 1.1 % (0.0-7.0); Hematocrit 23.5 % (41.0-53.0); Lymphocytes % (auto) 5.3 % (10.0-50.0); Mean Corpuscular Hemoglobin 30.1 pg (28.0-32.0); Mean Corpuscular Hgb Conc. 32.7 g/dL (32.0-36.0); Mean Corpuscular Volume 92.2 fL (80.0-100.0); Neutrophils % (auto) 82.5 % (37.0-80.0); Nucleated Red Blood Cells % 0.1 %; Platelet Count (auto) 65 10^3/uL (140-450); Red Blood Cells 2.55 10^6/uL (4.5-5.90); Red Cell Distribution Width 19.7 % (11.8-14.3)
[2024-05-09] MEDS: ERTAPENEM SOD INJ 1 GM in SODIUM CHL 0.9% 50 ML IV ONE (17:38)
[2024-05-09] MEDS: FLECAINIDE ACETATE 50 MG TAB PO ONE (18:29)
--- NOTE | 2024-05-09 18:54 | DVH ---
CHEST RADIOGRAPH Indication: confirm NGT placement Technique: Single frontal view of the chest was obtained COMPARISON: XY CHEST PORTABLE on DOS: 05/07/24, XY CHEST PORTABLE on DOS: 05/06/24, XY CHEST PORTABLE o n DOS: 10/05/23, XY CHEST XRAY 1 VIEW on DOS: 07/09/23, XY CHEST PORTABLE on DOS: 07/08/23 FINDINGS: Lines and Tubes: Right PICC in satisfactory position. Enteric catheter in satisfactory position. Lungs: Pulmonary vascular congestion Pleura: No effusion. No pneumothorax. Cardiomediastinal contours: Cardiomegaly Bones: Unremarkable IMPRESSION: Nasogastric tube in satisfactory position.
[2024-05-09] MEDS: LORazepam 2MG/ML-1ML VIAL IV PRN (20:30)
[2024-05-09] MEDS: rifAXIMin 550 MG TAB PO SCH (21:33)
[2024-05-09] MEDS: METOPROLOL TARTRATE 25 MG TAB PO SCH (21:33)
[2024-05-09] MEDS: FLECAINIDE ACETATE 50 MG TAB PO SCH (21:34)
[2024-05-09] MEDS: METHADONE HCL 10 MG TAB PO SCH (21:34)
--- NOTE | 2024-05-09 21:55 | DVHPN2 ---
Progress Note - Dictate Date Seen: May 09, 2024 Medical Necessity Reason Pt with a Central, PICC or Fol: Yes The following are medically ne: Mcduffie Catheter Reason for mcduffie catheter: Strict I&O Subjective No new complaints Smoe blood in stool reported Hemoglobin is down to 7.7 Persistent mod elevation in liver enzymes vital signs Vital Sign Date Time Temp Pulse Resp B/P (MAP) Pulse Ox O2 Delivery O2 Flow Rate FiO2 05/09/24 21:33 87 145/62 05/09/24 21:00 97.4 17 100 97.4 05/09/24 07:30 Room Air* 0 30 Hi-Flow Heated NC+ 30 Total Intake and Output 05/08/24 05/08/24 05/09/24 15:00 23:00 07:00 Intake Total 575 ml 391.64 ml 274.94 ml Output Total 675 ml 900 ml Balance 575 ml -283.36 ml -625.06 ml medications Current Medications Medications Dose Ordered Sig/Kenisha Route Start Time Stop Time Status Last Admin Dose Admin Spironolactone 25 mg DAILY PO 05/07/24 10:00 05/07/24 10:38 25 MG Diagnostic Test (Pha) 1 strip ACHS 05/07/24 07:00 05/09/24 18:35 1 STRIP Dextrose 50 ml UD PRN IV 05/06/24 22:15 Sodium Chloride 10 ml Q8HR IV 05/07/24 06:00 05/09/24 14:30 10 ML Acetaminophen/ Hydrocodone Bitart 1 tab Q4HP PRN PO 05/06/24 22:15 Ondansetron HCl 4 mg Q4HP PRN IV 05/06/24 22:15 Docusate Sodium 100 mg BIDPRN PRN PO 05/06/24 22:15 Furosemide 20 mg DAILY IV 05/08/24 10:00 05/09/24 09:26 20 MG Lactulose 30 ml BID [place] 05/07/24 22:00 05/09/24 21:34 30 ML Enoxaparin Sodium 40 mg DAILY SC 05/08/24 10:00 05/08/24 11:41 40 MG Pantoprazole Sodium 40 mg BID IV 05/08/24 22:00 05/09/24 21:34 40 MG Rifaximin 550 mg BID PO 05/09/24 22:00 05/09/24 21:33 550 MG Lorazepam 1 mg Q6HP PRN IV 05/09/24 15:15 05/09/24 20:30 1 MG Ertapenem 1 gm/ Sodium Chloride 50 ml @ 100 mls/hr DAILY IV 05/10/24 10:00 Methadone HCl 10 mg Q8HR PO 05/09/24 22:00 05/09/24 21:34 10 MG Thiamine HCl 100 mg DAILY IV 05/10/24 10:00 Flecainide Acetate 100 mg Q12HR PO 05/09/24 22:00 05/09/24 21:34 100 MG Metoprolol Tartrate 12.5 mg BID PO 05/09/24 22:00 05/09/24 21:33 12.5 MG laboratory and microbiology Laboratory Tests 05/09/24 17:03 05/09/24 03:28 Test 05/09/24 03:28 Range/Units Serum Glucose 125 H 74-106 mg/dL Problems(with codes): (1) Hepatitis C (2) Liver failure (3) Cirrhosis (4) Ascites (5) Pulmonary vascular congestion (6) Anemia, unspecified (7) Urinary tract infection (8) Generalized weakness (9) Hepatic encephalopathy (10) Altered mental status Prognosis PLAN Check PT INR in a.m. so we can stratify current liver disease status and decide on the need the steroids Continue rifaximin and lactulose Transfused 1 unit PRBC if hemoglobin drops below seven On IV antibiotics Prognosis remains guarded Monitor labs in a.m. including PT INR and ammonia level Dietary Evaluation Review Comments: 1. Per RN, pt is able to drink liquid but unable to manage jello. Will Downgrade his CCHO-60 diet to pureed texture. 2. offer Glucern BID if PO is still poor 3. elevated BUN, f/u and reassess after pt has a GI and nephrology consult. 4. consider clinimix as a form of protein supplementation as pt has very low albumin. Expected Outcomes/Goals: Gradual wt loss, better DM control. Plan discussed with: Other (Dr Maxwell) PAULINA BAINS MD May 09, 2024 21:55
[2024-05-10] VITALS (48 sets, daily range): BP systolic 95–148; BP diastolic 42–88; PULSE 55–78; RESP 11–25; TEMP 97.1–98.4; O2SAT 84–100
[2024-05-10 03:47] LABS: Basophils # (auto) 0 10 ^3/uL (0-0.2); Eosinophils # (auto) 0.1 10 ^3/uL (0-0.8); Lymphocytes # (auto) 0.3 10 ^3/uL (0.4-5.4); Mean Corpuscular Volume 94.4 fL (80.0-100.0); Monocytes # (auto) 0.5 10 ^3/uL (0-1.3); Nucleated Red Blood Cells % 0.1 %; White Blood Cell 4.4 10^3/uL (4.4-10.8)
[2024-05-10 03:50] LABS: Basophils % (auto) 0.4 % (0.0-2.0); Eosinophils % (auto) 1.7 % (0.0-7.0); Hematocrit 24.5 % (41.0-53.0); Hemoglobin 7.8 g/dL (13.5-17.5); Lymphocytes % (auto) 6.3 % (10.0-50.0); Mean Corpuscular Hemoglobin 30.2 pg (28.0-32.0); Monocytes % (auto) 11.5 % (0.0-12.0); Neutrophils # (auto) 3.6 10 ^3/uL (1.6-8.6); Neutrophils % (auto) 80.1 % (37.0-80.0); Platelet Count (auto) 72 10^3/uL (140-450); Red Blood Cells 2.59 10^6/uL (4.5-5.90)
[2024-05-10 03:56] LABS: Red Cell Distribution Width 20.1 % (11.8-14.3)
[2024-05-10 04:01] LABS: INR 1.54 (0.9-1.15); Prothrombin Time 15.6 sec (9.3-11.8)
[2024-05-10 04:03] LABS: Anion Gap 7 (5-15); BUN/Creatinine Ratio 21.6 (10.0-20.0); Calcium 9.6 mg/dL (8.7-10.4); Potassium 4.1 mmol/L (3.5-5.1); Total Protein 6.1 g/dL (5.7-8.2)
[2024-05-10 04:06] LABS: Alanine Aminotransferase 55 U/L (7-40); Albumin 2.9 g/dL (3.2-4.8); Alkaline Phosphatase 245 U/L (46-116); Aspartate Aminotransferase 80 U/L (13-40); Blood Urea Nitrogen 29 mg/dL (9-23); Carbon Dioxide 31 mmol/L (20-31); Chloride 116 mmol/L (98-107); Glucose 109 mg/dL (74-106); Sodium 154 mmol/L (136-145)
--- NOTE | 2024-05-10 09:01 | DVHPNRES ---
Progress Note Date Seen: May 10, 2024 Resident Creating Document: JONNY KENNEDY Medical Necessity Reason Pt with a Central, PICC or Fol: Yes The following are medically ne: Mcduffie Catheter Reason for mcduffie catheter: Strict I&O Subjective Review of Systems Patient is 63 years old male with past medical history of cirrhosis of liver, hepatitis C infection, liver shunt, chronic pain, CHF, diabetes mellitus, UTI, prostate cancer presented to the [facility] for evaluation of drug overdose. Information was gathered from reviewing the chart and talking to patient's family. As per patient's patient was found gargling and unresponsive in a car, possibly overdose of morphine, so EMS was called. As per patient might have overdosed with morphine, he had 90 of morphine which was reduced to 56 unit before arrival. On arrival of the EMS patient was given Narcan and woke up but unable to recall what happened. Initial lab workup revealed WBC 5.4, hemoglobin 9.7, hematocrit 32.2, platelets 88,000, sodium 141, potassium 4.9, BUN 23, creatinine 1.73, GFR 44, glucose 112, AST 105, ALT 65, troponin 454, ammonia 84. Troponin I elevated for 450> 548> 554, BNP 504.68. UDS positive for amphetamine, opiates. Urinalysis positive for urinary tract infection leukocyte esterase 3+, RBC 8, WBC 193, bacteria moderate.. ABG on 05/07/2024 revealed pH 7.11, pCO2 65.3, PO2 91.8, bicarbonate 20.7. Chest x-ray revealing cardiomegaly with pulmonary vascular congestion. CXR on 05/06/2024 revealed- Cardiomegaly with pulmonary vascular congestion. On 05/07/2024 CT abdomen and pelvis revealed-1. No acute findings identified. Ventral hernia seen in the lower abdomen containing multiple loops of nonobstructed small- bowel. Cirrhotic liver.Splenomegaly. Trace abdominopelvic ascites. CT head on 05/07/2024 revealed- No acute intracranial hemorrhage, midline shift or mass effect. Echo 2D on 07/03/2023-Normal left ventricular size and dimension. Normal left ventricular systolic function estimated ejection fraction 55%. There is a grade 1 diastolic dysfunction. Normal right ventricular size and dimension. Normal rightt ventricular systolic function. Patient was admitted at [facility] in July 06, 2023 due to GI bleeding, cirrhosis of liver he had hepatitis-C, cellulitis of the left lower limb, MRSA, blood culture Klebsiella oxytocia Streptococcus mitis, wound culture Enterococcus faecalis, MRSA October 05, 2021, due to sepsis, Streptococcus agalactiae-suspected prosthetic joint infection November 05, 2020. Ascites, hepatitis-C infection, cellulitis of the left lower extremity PMHCancer, cirrhosis of liver, hepatitis C infection, liver shunt, chronic pain, CHF, diabetes mellitus, UTI, prostate cancer PSH-Hernia Repair, left leg surgery has nail on it Family History-Reviewed, noncontributory to the management of this case. Past Social History-The patient lives at home, smokes cigarettes less than 1 pack per day, denies alcohol or illicit drugs abuse. -home medications ergo cholecalciferol, Lasix 20 mg b.i.d., gabapentin 300 mg q.8h, insulin glargine 15 units subcutaneously b.i.d., lactulose 30 mL p.r.n., morphine sulfate, rifaximin 550 b.i.d., spironolactone 50 daily Patient was seen today for clinical evaluation. Labs and chart reviewed. 05/08/2024- the patient was noted to go into an atrial fibrillation with rapid ventricular response. ER staff administered diltiazem 20 mg IV once. [id number] VASc score: 1 point, HAS-BLED: score: 2 points. Patient was seen today for clinical evaluation. Labs and chart reviewed Overnight blood pressure ranging from -100 to 160/53-77, pulse-55-87, temperature 97.1-98.8 I/O- intake 476, output 3300,, negative balance 2823 Patient had melena yesterday on 05/09/2024, patient was seen by cane weigher Dr. Arias. Recommendation reviewed and appreciated. No acute intervention recommended Lab revealed WBC 5.4> 6.3> 4.0> 3.6> 4.4 Hemoglobin 9.7> 9.7> 8.8> 8.2> 7.7> 7.8 Platelet 88> 110> 81> 72> 65> 72 Sodium 141> 142> 148> 149> 154 Potassium 4.9> 4.7> 3.8> 3.9> 4.1 BUN 23>> 27> 28> 29 Serum creatinine 1.73> 1.66> 1.25> 1.34 INR 1.40> 1.30> 1.39> 1.35> 1.35> 1.54 Total bilirubin- 6.0> 4.7> 5.9> 7.0 AST 105> 38> 84> 80 ALT-65> 70> 63> 59> 55 Alkaline phosphatase 287> 276> 263 Ammonia 84> 10> 41 Albumin 3.3> 2.9> 2.9> 2.9 Urine culture on 05/07/2024 preliminary >100,000 CFU/mL Klebsiella pneumoniae ESBL, on ertapenem 05/08/2024-blood culture preliminary no growth MRSA screening negative Provider Called and spoke to patient's Lorna, , discussed patient's current medical condition, plan of care and answered her questions Objective vital signs Vital Sign Date Time Temp Pulse Resp B/P (MAP) Pulse Ox O2 Delivery O2 Flow Rate FiO2 05/10/24 06:00 72 22 137/77 (97) 99 05/10/24 05:00 97.1 97.1 05/09/24 20:00 Nasal Cannula* 4 36 Total Intake and Output 05/09/24 05/09/24 05/10/24 15:00 23:00 07:00 Intake Total 199.96 ml 150 ml 110 ml Output Total 2900 ml 400 ml Balance 199.96 ml -2750 ml -290 ml medications Current Medications Medications Dose Ordered Sig/Kenisha Route Start Time Stop Time Status Last Admin Dose Admin Spironolactone 25 mg DAILY PO 05/07/24 10:00 05/07/24 10:38 25 MG Diagnostic Test (Pha) 1 strip ACHS 05/07/24 07:00 05/09/24 21:52 1 STRIP Dextrose 50 ml UD PRN IV 05/06/24 22:15 Sodium Chloride 10 ml Q8HR IV 05/07/24 06:00 05/10/24 05:38 10 ML Acetaminophen/ Hydrocodone Bitart 1 tab Q4HP PRN PO 05/06/24 22:15 Ondansetron HCl 4 mg Q4HP PRN IV 05/06/24 22:15 Docusate Sodium 100 mg BIDPRN PRN PO 05/06/24 22:15 Furosemide 20 mg DAILY IV 05/08/24 10:00 05/09/24 09:26 20 MG Lactulose 30 ml BID PA 05/07/24 22:00 05/09/24 21:34 30 ML Enoxaparin Sodium 40 mg DAILY SC 05/08/24 10:00 05/08/24 11:41 40 MG Pantoprazole Sodium 40 mg BID IV 05/08/24 22:00 05/09/24 21:34 40 MG Rifaximin 550 mg BID PO 05/09/24 22:00 05/09/24 21:33 550 MG Lorazepam 1 mg Q6HP PRN IV 05/09/24 15:15 05/09/24 20:30 1 MG Ertapenem 1 gm/ Sodium Chloride 50 ml @ 100 mls/hr DAILY IV 05/10/24 10:00 Methadone HCl 10 mg Q8HR PO 05/09/24 22:00 05/10/24 05:38 10 MG Thiamine HCl 100 mg DAILY IV 05/10/24 10:00 Flecainide Acetate 100 mg Q12HR PO 05/09/24 22:00 05/09/24 21:34 100 MG Metoprolol Tartrate 12.5 mg BID PO 05/09/24 22:00 05/09/24 21:33 12.5 MG Examination General examination- confused disoriented, drowsy HEENT- PEERLA, no acute nasal discharge Cardiovascular- S1-S2 audible, rate and rhythm regular, no murmur Respiratory- CTAB, no wheeze or rhonchi Gastrointestinal-nontender, bowel sound+. Abdomen distended+, abdominal hernia noted Musculoskeletal-no acute joint swelling or tenderness or redness# Lower extremity- + bilateral leg edema+ Neurological- cranial nerves intact, no acute dysarthria or dysphagia Psychiatry- drowsy, dizzy Skin- bilateral lower extremity skin pigmentation laboratory and microbiology Laboratory Tests 05/10/24 03:00 Test 05/10/24 03:00 Range/Units Serum Glucose 109 H 74-106 mg/dL Microbiology Date/Time Source Procedure Growth Status 05/08/24 23:41 Nose MRSA Screen - Final Complete 05/08/24 08:45 Blood Blood Culture - Preliminary NO GROWTH AFTER 24 HOURS OF INCUBATION. Resulted 05/07/24 01:30 Voided Urine Urine Culture - Final Klebsiella pneumoniae - ESBL Complete Problem List/Assessment/Plan Problem List/Assessment/Plan Assessment and plan Neurology -hepatic encephalopathy/toxic encephalopathy/metabolic encephalopathy due to cirrhosis of liver -substance abuse -amphetamine -avoid dehydration and nephrotoxic and hepatotoxic Cardiovascular -Atrial fibrillation with rapid ventricular response, new onset -CHF likely diastolic, LVEF 55%, -acute pulmonary edema -NSTEMI type 2 likely demand led ischemia -continue current management Respiratory -acute hypoxic respiratory failure likely due to pneumonia Gram-positive versus Gram-negative Acute hypercarbic respiratory failure -continue current management Gastrointestinal -hepatic encephalopathy -hepatitis-C positive -cirrhosis of liver -Hepatitis-C decompensated liver cirrhosis with anasarca, - trace ascites, coagulopathy, -melena -transaminitis -suspected spontaneous bacterial peritonitis --continue rifaximin Continue ertapenem IV as prescribed -avoid dehydration and nephrotoxic and hepatotoxic drugs -status post gastroenterology consult Genitourinary/renal -hepatorenal syndrome - dehydration and hepatotoxic and nephrotoxic drugs Infectious -sepsis due to UTI/pneumonia -spontaneous bacterial peritonitis -Urine culture on 05/07/2024 preliminary >100,000 CFU/mL Klebsiella pneumoniae ESBL Continue IV ertapenem as prescribed [employer] -pancytopenia likely due to hypersplenism -hypersplenism -anemia -thrombocytopenia -leukopenia -monitor CBC Metabolic or endocrine -Metabolic acidosis -hypernatremia -hyper ammonia -obesity, BMI 36.4 -substance abuse, amphetamine Skin or elementary Skin in pigmentation on the bilateral lower extremity Lines Mcduffie's Goals of care/advance care planning Code status ; discussed with >15 minutes PUD prophylaxis: Pantoprazole DVT prophylaxis: Lovenox long dw - explained poor prognosis Plan discussed with Dr. Amaro , nursing staff, Total time spent on patient evaluation, chart review, assessment and plan, Critical time spent excluding procedure 83 minutes Plan discussed with: Spouse (RN), Other (RN) My Orders My Orders Orders - JONNY KENNEDY RESIDENT Procedure Category Date Status Time Abg W/ Co-Ox RT 05/09/24 Logged 10:40 Place Ng ORDERS 05/09/24 Transmitted 10:40 Med/Surg Behavior RENEW 05/09/24 Transmitted [place] 10:42 Rifaximin (Xifaxan) PHA 05/09/24 In Process 22:00 *Consult Dr. Stephens CONS 05/09/24 Transmitted [place] 16:27 Dietary Evaluation Review Comments: 1. Per RN, pt is able to drink liquid but unable to manage jello. Will Downgrade his CCHO-60 diet to pureed texture. 2. offer Glucern BID if PO is still poor 3. elevated BUN, f/u and reassess after pt has a GI and nephrology consult. 4. consider clinimix as a form of protein supplementation as pt has very low albumin. Expected Outcomes/Goals: Gradual wt loss, better DM control. Date of Service: May 10, 2024 Billing Provider: JUVENAL AMARO MD Common Visit Codes: 17106-QLHGRXQZ CARE 30-74 MIN, 60342-[id number] CARE-EACH +30MIN Date of Service: May 10, 2024 Billing Provider: JUVENAL AMARO MD Common Visit Codes: 31272-TFYIPDLI CARE 30-74 MIN, 08524-[id number] CARE-EACH +30MIN JONNY KENNEDY May 10, 2024 09:01 JUVENAL AMARO MD May 11, 2024 15:42
[2024-05-10] MEDS: ERTAPENEM SOD INJ 1 GM in SODIUM CHL 0.9% 50 ML IV SCH (10:11)
[2024-05-10] MEDS: THIAMINE 100mg/ml INJ (200mg/2ml VIAL) IV SCH (10:12)
[2024-05-10] MEDS: FOLIC ACID 1 MG in D5W 5% 50 ML INJ ONE (11:15)
--- NOTE | 2024-05-10 11:54 | DVH ---
EXAM: XY CHEST PORTABLE Indication: PNA/Aspiration Technique: Single frontal view of the chest was obtained Comparison: XY CHEST PORTABLE on DOS: 05/09/24, XY CHEST PORTABLE on DOS: 05/07/24, XY CHEST PORTABLE o n DOS: 05/06/24, XY CHEST PORTABLE on DOS: 10/05/23, XY CHEST XRAY 1 VIEW on DOS: 07/09/23, XY CHEST POR TABLE on DOS: 05/09/24 FINDINGS: Lines and Tubes: Right PICC in satisfactory position. Enteric catheter in satisfactory position. Lungs: Pulmonary vascular congestion Pleura: No effusion. No pneumothorax. Cardiomediastinal contours: Cardiomegaly Bones: Unremarkable IMPRESSION: NO SIGNIFICANT CHANGE COMPARED TO PRIOR EXAM ALLOWING FOR DIFFERENCES IN TECHNIQUE.
[2024-05-10] MEDS: LACTULOSE 20Gm/30ML SOLN PR SCH (13:04)
[2024-05-10] MEDS ORDERED: CLINIMIX PER PHARMACY 0 ML IV SCH (17:00)
[2024-05-10] MEDS ORDERED: DEXTROSE (50%) 50ML SYRG IV SCH (17:15)
[2024-05-10] MEDS: InsuLIN REG 1unit/0.01ml Soln (100units/ml) SC SCH (18:00)
[2024-05-10] MEDS: ACCU-CHEK COMFORT CURVE STRIP VI SCH (18:42)
[2024-05-10 19:04] LABS: Magnesium 2.1 mg/dL (1.6-2.6)
[2024-05-10 19:06] LABS: Phosphorus 3.3 mg/dL (2.4-5.1)
[2024-05-10] MEDS: HALOPERIDOL LACTATE 5 MG/ML INJ VIAL IM PRN (20:20)
[2024-05-10] MEDS: AMINO ACID INFUSION IN D10W 2,000 ML IV SCH (22:20)
--- NOTE | 2024-05-10 22:23 | DVHPN2 ---
Progress Note - Dictate Date Seen: May 10, 2024 Medical Necessity Reason Pt with a Central, PICC or Fol: Yes The following are medically ne: Mcduffie Catheter Reason for mcduffie catheter: Strict I&O Subjective No new complaints Smoe blood in stool reported Hemoglobin is down to 7.7 Persistent mod elevation in liver enzymes vital signs Vital Sign Date Time Temp Pulse Resp B/P (MAP) Pulse Ox O2 Delivery O2 Flow Rate FiO2 05/10/24 22:08 68 143/84 05/10/24 18:31 17 98 05/10/24 17:00 98.4 98.4 05/10/24 08:00 Nasal Cannula* 2 28 Total Intake and Output 05/09/24 05/09/24 05/10/24 15:00 23:00 07:00 Intake Total 199.96 ml 150 ml 110 ml Output Total 2900 ml 400 ml Balance 199.96 ml -2750 ml -290 ml medications Current Medications Medications Dose Ordered Sig/Kenisha Route Start Time Stop Time Status Last Admin Dose Admin Spironolactone 25 mg DAILY PO 05/07/24 10:00 05/10/24 11:49 25 MG Sodium Chloride 10 ml Q8HR IV 05/07/24 06:00 05/10/24 13:05 10 ML Ondansetron HCl 4 mg Q4HP PRN IV 05/06/24 22:15 Docusate Sodium 100 mg BIDPRN PRN PO 05/06/24 22:15 Pantoprazole Sodium 40 mg BID IV 05/08/24 22:00 05/10/24 22:07 40 MG Rifaximin 550 mg BID PO 05/09/24 22:00 05/10/24 22:07 550 MG Ertapenem 1 gm/ Sodium Chloride 50 ml @ 100 mls/hr DAILY IV 05/10/24 10:00 05/10/24 10:11 100 MLS/HR Methadone HCl 10 mg Q8HR PO 05/09/24 22:00 05/10/24 22:08 10 MG Thiamine HCl 100 mg DAILY IV 05/10/24 10:00 05/10/24 10:12 100 MG Flecainide Acetate 100 mg Q12HR PO 05/09/24 22:00 05/10/24 22:08 100 MG Metoprolol Tartrate 12.5 mg BID PO 05/09/24 22:00 05/10/24 22:08 12.5 MG Lactulose 30 ml TID MT 05/10/24 14:00 05/10/24 22:07 30 ML Folic Acid 1 mg DAILY PO 05/11/24 10:00 Amino Acids 0 ml @ 0 mls/hr PER PHARMACY IV 05/10/24 17:00 Diagnostic Test (Pha) 1 strip Q6HR 05/10/24 18:00 05/10/24 18:42 1 STRIP Insulin Human Regular FOLLOW SLIDING SCALE Q6HR SC 05/10/24 18:00 Dextrose 50 ml UD IV 05/10/24 17:15 Amino Acids/ Electrolytes/ Dextrose 2,000 ml @ 41 mls/hr DAILY@2200 IV 05/10/24 22:00 Haloperidol Lactate 5 mg Q8HP PRN IM 05/10/24 19:15 05/10/24 20:20 5 MG laboratory and microbiology Laboratory Tests 05/10/24 03:00 Test 05/10/24 03:00 Range/Units Serum Glucose 109 H 74-106 mg/dL Prognosis Pt is altered A& O x 1 Dark brown stool today HH stable 24 hrs IV PPI IV Clinimix Monitor labs EGD if GI bleed recurs or persist Dietary Evaluation Review Comments: 1. Per RN, pt is able to drink liquid but unable to manage jello. Will Downgrade his CCHO-60 diet to pureed texture. 2. offer Glucern BID if PO is still poor 3. elevated BUN, f/u and reassess after pt has a GI and nephrology consult. 4. consider clinimix as a form of protein supplementation as pt has very low albumin. Expected Outcomes/Goals: Gradual wt loss, better DM control. Plan discussed with: Other (ICU Nurse) PAULINA BAINS MD May 10, 2024 22:23
[2024-05-11] VITALS (48 sets, daily range): BP systolic 89–145; BP diastolic 45–86; PULSE 52–77; RESP 9–31; TEMP 97.3–98.3; O2SAT 95–100
[2024-05-11 03:59] LABS: Basophils # (auto) 0 10 ^3/uL (0-0.2); Basophils % (auto) 0.2 % (0.0-2.0); Eosinophils # (auto) 0.1 10 ^3/uL (0-0.8); Eosinophils % (auto) 2.9 % (0.0-7.0); Hematocrit 23.4 % (41.0-53.0); Hemoglobin 7.6 g/dL (13.5-17.5); Lymphocytes # (auto) 0.3 10 ^3/uL (0.4-5.4); Lymphocytes % (auto) 8.2 % (10.0-50.0); Mean Corpuscular Hemoglobin 30.6 pg (28.0-32.0); Mean Corpuscular Hgb Conc. 32.5 g/dL (32.0-36.0); Mean Corpuscular Volume 94.2 fL (80.0-100.0); Monocytes # (auto) 0.4 10 ^3/uL (0-1.3); Monocytes % (auto) 11.8 % (0.0-12.0); Neutrophils # (auto) 2.8 10 ^3/uL (1.6-8.6); Neutrophils % (auto) 76.9 % (37.0-80.0); Nucleated Red Blood Cells % 0.2 %; Platelet Count (auto) 72 10^3/uL (140-450); Red Blood Cells 2.49 10^6/uL (4.5-5.90); Red Cell Distribution Width 21.3 % (11.8-14.3); White Blood Cell 3.6 10^3/uL (4.4-10.8)
[2024-05-11 04:02] LABS: Anion Gap 6 (5-15); BUN/Creatinine Ratio 20.6 (10.0-20.0); Calcium 9.2 mg/dL (8.7-10.4); Magnesium 2.1 mg/dL (1.6-2.6); Potassium 3.5 mmol/L (3.5-5.1); Total Protein 5.9 g/dL (5.7-8.2)
[2024-05-11 04:03] LABS: Carbon Dioxide 32 mmol/L (20-31); Chloride 117 mmol/L (98-107); Sodium 155 mmol/L (136-145)
[2024-05-11 04:04] LABS: Alanine Aminotransferase 54 U/L (7-40); Albumin 2.8 g/dL (3.2-4.8); Alkaline Phosphatase 237 U/L (46-116); Aspartate Aminotransferase 81 U/L (13-40); Blood Urea Nitrogen 28 mg/dL (9-23); Glucose 118 mg/dL (74-106); Phosphorus 1.8 mg/dL (2.4-5.1)
[2024-05-11 04:07] LABS: Bilirubin, Total 7.6 mg/dL (0.2-1.0)
[2024-05-11 04:14] LABS: INR 1.5 (0.9-1.15); Prothrombin Time 15.3 sec (9.3-11.8)
[2024-05-11 04:18] LABS: Triglycerides 101 mg/dL (< 150)
[2024-05-11] MEDS: IPRATROPIUM BROM 0.5 MG/2.5ML INH SOL NEB ONE (06:30)
[2024-05-11] MEDS: FUROSEMIDE 20 MG/2 ML VIAL IV ONE (06:51)
--- NOTE | 2024-05-11 06:54 | DVH ---
EXAM: XR Chest, 1 View CLINICAL INDICATION: PNA TECHNIQUE: Frontal view of the chest. COMPARISON: XY CHEST PORTABLE on DOS: 05/10/24, XY CHEST PORTABLE on DOS: 05/09/24, XY CHEST PORTABLE on DOS: 05/07/24, XY CHEST PORTABLE on DOS: 05/06/24, XY CHEST PORTABLE on DOS: 10/05/23 FINDINGS: LUNGS AND PLEURAL SPACES: See below. HEART: Cardiomegaly with mild congestion. MEDIASTINUM: Unremarkable. Normal mediastinal contour. BONES/JOINTS: Unremarkable. No acute fracture. TUBES, LINES AND DEVICES: Stable tubes and lines. OTHER FINDINGS: . .. IMPRESSION: Cardiomegaly with mild congestion.
[2024-05-11] MEDS: ALBUTEROL SULF 2.5 MG/0.5ML(0.5%) NEB SOLN NEB ONE (07:00)
--- NOTE | 2024-05-11 09:01 | DVHPNRES ---
Progress Note Date Seen: May 11, 2024 Resident Creating Document: JONNY KENNEDY Medical Necessity Reason Pt with a Central, PICC or Fol: Yes The following are medically ne: Mcduffie Catheter Reason for mcduffie catheter: Strict I&O Subjective Review of Systems Patient is 63 years old male with past medical history of cirrhosis of liver, hepatitis C infection, liver shunt, chronic pain, CHF, diabetes mellitus, UTI, prostate cancer presented to the [facility] for evaluation of drug overdose. Information was gathered from reviewing the chart and talking to patient's family. As per patient's patient was found gargling and unresponsive in a car, possibly overdose of morphine, so EMS was called. As per patient might have overdosed with morphine, he had 90 of morphine which was reduced to 56 unit before arrival. On arrival of the EMS patient was given Narcan and woke up but unable to recall what happened. Initial lab workup revealed WBC 5.4, hemoglobin 9.7, hematocrit 32.2, platelets 88,000, sodium 141, potassium 4.9, BUN 23, creatinine 1.73, GFR 44, glucose 112, AST 105, ALT 65, troponin 454, ammonia 84. Troponin I elevated for 450> 548> 554, BNP 504.68. UDS positive for amphetamine, opiates. Urinalysis positive for urinary tract infection leukocyte esterase 3+, RBC 8, WBC 193, bacteria moderate.. ABG on 05/07/2024 revealed pH 7.11, pCO2 65.3, PO2 91.8, bicarbonate 20.7. Chest x-ray revealing cardiomegaly with pulmonary vascular congestion. CXR on 05/06/2024 revealed- Cardiomegaly with pulmonary vascular congestion. On 05/07/2024 CT abdomen and pelvis revealed-1. No acute findings identified. Ventral hernia seen in the lower abdomen containing multiple loops of nonobstructed small- bowel. Cirrhotic liver.Splenomegaly. Trace abdominopelvic ascites. CT head on 05/07/2024 revealed- No acute intracranial hemorrhage, midline shift or mass effect. Echo 2D on 07/03/2023-Normal left ventricular size and dimension. Normal left ventricular systolic function estimated ejection fraction 55%. There is a grade 1 diastolic dysfunction. Normal right ventricular size and dimension. Normal rightt ventricular systolic function. Patient was admitted at [facility] in July 06, 2023 due to GI bleeding, cirrhosis of liver he had hepatitis-C, cellulitis of the left lower limb, MRSA, blood culture Klebsiella oxytocia Streptococcus mitis, wound culture Enterococcus faecalis, MRSA October 05, 2021, due to sepsis, Streptococcus agalactiae-suspected prosthetic joint infection November 05, 2020. Ascites, hepatitis-C infection, cellulitis of the left lower extremity PMHCancer, cirrhosis of liver, hepatitis C infection, liver shunt, chronic pain, CHF, diabetes mellitus, UTI, prostate cancer PSH-Hernia Repair, left leg surgery has nail on it Family History-Reviewed, noncontributory to the management of this case. Past Social History-The patient lives at home, smokes cigarettes less than 1 pack per day, denies alcohol or illicit drugs abuse. -home medications ergo cholecalciferol, Lasix 20 mg b.i.d., gabapentin 300 mg q.8h, insulin glargine 15 units subcutaneously b.i.d., lactulose 30 mL p.r.n., morphine sulfate, rifaximin 550 b.i.d., spironolactone 50 daily Patient was seen today for clinical evaluation. Labs and chart reviewed Nursing staff complaint patient was wheezing, auscultation bilateral wheezing, order chest x-ray, Lasix 20 mg IV stat, BNP Overnight blood pressure ranging from 95-144/47-74, pulse 52-77 I/O- intake 778, output 2024,, negative balance 1247 Patient is ongoing melena, status post gastroenterology consult, recommended conservative management Lab revealed CXR- Cardiomegaly with mild congestion. WBC 5.4> 6.3> 4.0> 3.6> 4.4> 3.6 Hemoglobin 9.7> 9.7> 8.8> 8.2> 7.7> 7.8> 7.6 Platelet 88> 110> 81> 72> 65> 72> 72 Sodium 141> 142> 148> 149> 154> 155 Potassium 4.9> 4.7> 3.8> 3.9> 4.1> 3.5 BUN 23>> 27> 28> 29> 28 Serum creatinine 1.73> 1.66> 1.25> 1.34> 1.36 INR 1.40> 1.30> 1.39> 1.35> 1.35> 1.54> 1.5 Total bilirubin- 6.0> 4.7> 5.9> 7.0> 7.6 AST 105> 38> 84> 80> 80 ALT-65> 70> 63> 59> 55> 54 Alkaline phosphatase 287> 276> 263> 237 Ammonia 84> 10> 41> 16 Albumin 3.3> 2.9> 2.9> 2.9> 2.8 Urine culture on 05/07/2024 preliminary >100,000 CFU/mL Klebsiella pneumoniae ESBL, on ertapenem 05/08/2024- the patient was noted to go into an atrial fibrillation with rapid ventricular response. ER staff administered diltiazem 20 mg IV once. [id number] VASc score: 1 point, HAS-BLED: score: 2 points. 05/08/2024-blood culture preliminary no growth MRSA screening negative Provider Called and spoke to patient's Lorna, , discussed patient's current medical condition, plan of care and answered her questions Objective vital signs Vital Sign Date Time Temp Pulse Resp B/P (MAP) Pulse Ox O2 Delivery O2 Flow Rate FiO2 05/11/24 06:51 121/55 05/11/24 06:30 55 17 99 05/11/24 02:01 97.3 97.3 05/10/24 20:00 Nasal Cannula* 4 36 Total Intake and Output 05/10/24 05/10/24 05/11/24 15:00 23:00 07:00 Intake Total 50 ml 241 ml 487 ml Output Total 1575 ml 450 ml Balance 50 ml -1334 ml 37 ml medications Current Medications Medications Dose Ordered Sig/Kenisha Route Start Time Stop Time Status Last Admin Dose Admin Spironolactone 25 mg DAILY PO 05/07/24 10:00 05/10/24 11:49 25 MG Sodium Chloride 10 ml Q8HR IV 05/07/24 06:00 05/11/24 05:44 10 ML Ondansetron HCl 4 mg Q4HP PRN IV 05/06/24 22:15 Docusate Sodium 100 mg BIDPRN PRN PO 05/06/24 22:15 Pantoprazole Sodium 40 mg BID IV 05/08/24 22:00 05/10/24 22:07 40 MG Rifaximin 550 mg BID PO 05/09/24 22:00 05/10/24 22:07 550 MG Ertapenem 1 gm/ Sodium Chloride 50 ml @ 100 mls/hr DAILY IV 05/10/24 10:00 05/10/24 10:11 100 MLS/HR Methadone HCl 10 mg Q8HR PO 05/09/24 22:00 05/11/24 05:44 10 MG Thiamine HCl 100 mg DAILY IV 05/10/24 10:00 05/10/24 10:12 100 MG Flecainide Acetate 100 mg Q12HR PO 05/09/24 22:00 05/10/24 22:08 100 MG Metoprolol Tartrate 12.5 mg BID PO 05/09/24 22:00 05/10/24 22:08 12.5 MG Lactulose 30 ml TID NC 05/10/24 14:00 05/11/24 05:43 30 ML Folic Acid 1 mg DAILY PO 05/11/24 10:00 Amino Acids 0 ml @ 0 mls/hr PER PHARMACY IV 05/10/24 17:00 Diagnostic Test (Pha) 1 strip Q6HR 05/10/24 18:00 05/11/24 05:45 1 STRIP Insulin Human Regular FOLLOW SLIDING SCALE Q6HR SC 05/10/24 18:00 Dextrose 50 ml UD IV 05/10/24 17:15 Amino Acids/ Electrolytes/ Dextrose 2,000 ml @ 41 mls/hr DAILY@2200 IV 05/10/24 22:00 05/10/24 22:20 41 MLS/HR Haloperidol Lactate 5 mg Q8HP PRN IM 05/10/24 19:15 05/10/24 20:20 5 MG Albuterol 2.5 mg Q6HPRN PRN NEB 05/11/24 06:30 Ipratropium Rainbow 0.5 mg Q6HPRN PRN NEB 05/11/24 06:30 Examination General examination- confused disoriented, drowsy HEENT- PEERLA, no acute nasal discharge Cardiovascular- S1-S2 audible, rate and rhythm regular, no murmur Respiratory- CTAB, no wheeze or rhonchi Gastrointestinal-nontender, bowel sound+. Abdomen distended+, abdominal hernia noted Musculoskeletal-no acute joint swelling or tenderness or redness# Lower extremity- + bilateral leg edema+ Neurological- cranial nerves intact, no acute dysarthria or dysphagia Psychiatry- drowsy, dizzy Skin- bilateral lower extremity skin pigmentation laboratory and microbiology Laboratory Tests 05/11/24 03:10 Test 05/11/24 03:10 Range/Units Serum Glucose 118 H 74-106 mg/dL Microbiology Date/Time Source Procedure Growth Status 05/08/24 23:41 Nose MRSA Screen - Final Complete 05/08/24 08:45 Blood Blood Culture - Preliminary NO GROWTH AFTER 72 HOURS OF INCUBATION. Resulted 05/07/24 01:30 Voided Urine Urine Culture - Final Klebsiella pneumoniae - ESBL Complete Problem List/Assessment/Plan Problem List/Assessment/Plan Assessment and plan Neurology -hepatic encephalopathy/toxic encephalopathy/metabolic encephalopathy due to cirrhosis of liver -substance abuse -amphetamine -avoid dehydration and nephrotoxic and hepatotoxic Cardiovascular -Atrial fibrillation with rapid ventricular response, new onset -CHF likely diastolic, LVEF 55%, -acute pulmonary edema -NSTEMI type 2 likely demand led ischemia -continue current management Respiratory -acute hypoxic respiratory failure likely due to pneumonia Gram-positive versus Gram-negative Acute hypercarbic respiratory failure -continue current management Gastrointestinal -hepatic encephalopathy -hepatitis-C positive -cirrhosis of liver -Hepatitis-C decompensated liver cirrhosis with anasarca, - trace ascites, coagulopathy, -melena -transaminitis -suspected spontaneous bacterial peritonitis --continue rifaximin Continue ertapenem IV as prescribed -avoid dehydration and nephrotoxic and hepatotoxic drugs -status post gastroenterology consult Genitourinary/renal -hepatorenal syndrome - dehydration and hepatotoxic and nephrotoxic drugs Infectious -sepsis due to UTI/pneumonia -spontaneous bacterial peritonitis -Urine culture on 05/07/2024 preliminary >100,000 CFU/mL Klebsiella pneumoniae ESBL Continue IV ertapenem as prescribed [employer] -pancytopenia likely due to hypersplenism -hypersplenism -anemia -thrombocytopenia -leukopenia -monitor CBC Metabolic or endocrine -Metabolic acidosis -hypernatremia -hyper ammonia -obesity, BMI 36.4 -substance abuse, amphetamine Skin or elementary Skin in pigmentation on the bilateral lower extremity Mcduffie's Goals of care/advance care planning Code status ; discussed with >15 minutes PUD prophylaxis: Pantoprazole DVT prophylaxis: SCDSCD Plan discussed with Dr. Amaro , nursing staff, Total time spent on patient evaluation, chart review, assessment and plan, Critical time spent excluding procedure 59 minutes Plan discussed with: Other (RN) My Orders My Orders Orders - BABU,MOHAMMED RESIDENT Procedure Category Date Status Time Chest Portable XY 05/10/24 Resulted 10:50 Lactulose Oral PHA 05/10/24 In Process 14:00 Folic Acid Tablet PHA 05/11/24 In Process 10:00 Free Water ANTHONY 05/10/24 In Process 16:56 Haloperidol Lactate PHA 05/10/24 In Process Injection (Haldol) 19:15 Chest Portable XY 05/11/24 Resulted 06:19 Albuterol Medneb PHA 05/11/24 In Process (Ventolin Medneb) 06:30 Ipratropium Medneb PHA 05/11/24 In Process (Atrovent Medneb) 06:30 Dietary Evaluation Review Comments: 1. Per RN, pt is able to drink liquid but unable to manage jello. Will Downgrade his CCHO-60 diet to pureed texture. 2. offer Glucern BID if PO is still poor 3. elevated BUN, f/u and reassess after pt has a GI and nephrology consult. 4. consider clinimix as a form of protein supplementation as pt has very low albumin. Expected Outcomes/Goals: Gradual wt loss, better DM control. Date of Service: May 11, 2024 Billing Provider: JUVENAL AMARO MD Common Visit Codes: [id number] CARE 30-74 MIN JONNY KENNEDY RESIDENT May 11, 2024 09:01 JUVENAL AMARO MD May 12, 2024 12:39
[2024-05-11] MEDS: FOLIC ACID 1 MG TAB PO SCH (09:32)
[2024-05-11] MEDS: FREE WATER NG SCH (13:20)
[2024-05-11] MEDS: POTASSIUM PHOSPHATE 22 MEQ in SODIUM CHL 0.9% 100 ML IV ONE (13:26)
[2024-05-11] MEDS: D5W 5% 1,000 ML IV SCH (16:56)
[2024-05-11 18:39] LABS: Basophils # (auto) 0 10 ^3/uL (0-0.2); Basophils % (auto) 0.2 % (0.0-2.0); Eosinophils # (auto) 0.1 10 ^3/uL (0-0.8); Eosinophils % (auto) 3.9 % (0.0-7.0); Hematocrit 24.7 % (41.0-53.0); Hemoglobin 7.7 g/dL (13.5-17.5); Lymphocytes # (auto) 0.3 10 ^3/uL (0.4-5.4); Lymphocytes % (auto) 9.3 % (10.0-50.0); Mean Corpuscular Hemoglobin 30.2 pg (28.0-32.0); Mean Corpuscular Hgb Conc. 31.2 g/dL (32.0-36.0); Mean Corpuscular Volume 96.7 fL (80.0-100.0); Monocytes # (auto) 0.4 10 ^3/uL (0-1.3); Monocytes % (auto) 12.8 % (0.0-12.0); Neutrophils # (auto) 2.1 10 ^3/uL (1.6-8.6); Neutrophils % (auto) 73.8 % (37.0-80.0); Nucleated Red Blood Cells % 0.1 %; Platelet Count (auto) 70 10^3/uL (140-450); Red Blood Cells 2.56 10^6/uL (4.5-5.90); White Blood Cell 2.9 10^3/uL (4.4-10.8)
[2024-05-11 18:40] LABS: Red Cell Distribution Width 22.4 % (11.8-14.3)
--- NOTE | 2024-05-11 18:48 | DVHPN2 ---
Progress Note - Dictate Date Seen: May 11, 2024 Medical Necessity Reason Pt with a Central, PICC or Fol: Yes The following are medically ne: Mcduffie Catheter Reason for mcduffie catheter: Strict I&O Subjective Ammonia level is normal Persistent mod elevation in liver enzymes vital signs Vital Sign Date Time Temp Pulse Resp B/P (MAP) Pulse Ox O2 Delivery O2 Flow Rate FiO2 05/11/24 17:31 69 16 121/67 (85) 96 05/11/24 16:00 98.3 98.3 05/11/24 11:15 2.0 28 05/11/24 11:08 Nasal Cannula* Total Intake and Output 05/10/24 05/10/24 05/11/24 15:00 23:00 07:00 Intake Total 50 ml 241 ml 528 ml Output Total 1575 ml 450 ml Balance 50 ml -1334 ml 78 ml medications Current Medications Medications Dose Ordered Sig/Kenisha Route Start Time Stop Time Status Last Admin Dose Admin Sodium Chloride 10 ml Q8HR IV 05/07/24 06:00 05/11/24 13:20 10 ML Ondansetron HCl 4 mg Q4HP PRN IV 05/06/24 22:15 Docusate Sodium 100 mg BIDPRN PRN PO 05/06/24 22:15 Pantoprazole Sodium 40 mg BID IV 05/08/24 22:00 05/11/24 09:31 40 MG Rifaximin 550 mg BID PO 05/09/24 22:00 05/11/24 09:32 550 MG Ertapenem 1 gm/ Sodium Chloride 50 ml @ 100 mls/hr DAILY IV 05/10/24 10:00 05/11/24 09:35 100 MLS/HR Methadone HCl 10 mg Q8HR PO 05/09/24 22:00 05/11/24 13:25 10 MG Thiamine HCl 100 mg DAILY IV 05/10/24 10:00 05/11/24 09:32 100 MG Flecainide Acetate 100 mg Q12HR PO 05/09/24 22:00 05/11/24 10:27 100 MG Lactulose 30 ml TID SC 05/10/24 14:00 05/11/24 05:43 30 ML Folic Acid 1 mg DAILY PO 05/11/24 10:00 05/11/24 09:32 1 MG Amino Acids 0 ml @ 0 mls/hr PER PHARMACY IV 05/10/24 17:00 Diagnostic Test (Pha) 1 strip Q6HR 05/10/24 18:00 05/11/24 12:01 1 STRIP Insulin Human Regular FOLLOW SLIDING SCALE Q6HR SC 05/10/24 18:00 Dextrose 50 ml UD IV 05/10/24 17:15 Amino Acids/ Electrolytes/ Dextrose 2,000 ml @ 41 mls/hr DAILY@2200 IV 05/10/24 22:00 05/10/24 22:20 41 MLS/HR Haloperidol Lactate 5 mg Q8HP PRN IM 05/10/24 19:15 05/11/24 16:44 5 MG Albuterol 2.5 mg Q6HPRN PRN NEB 05/11/24 06:30 Ipratropium [place] 0.5 mg Q6HPRN PRN NEB 05/11/24 06:30 Dextrose 1,000 ml @ 75 mls/hr [id number] IV 05/11/24 15:45 05/11/24 16:56 75 MLS/HR objective General: Obtunded HEENT: NC/AT EOMI dry mucous membranes Heart: Tachycardic regular rhythm Abdomen: Soft nontender nondistended Extremity: No clubbing cyanosis or edema Neuro: Confused lethargic laboratory and microbiology Laboratory Tests 05/11/24 18:27 05/11/24 03:10 Test 05/11/24 03:10 Range/Units Serum Glucose 118 H 74-106 mg/dL Problems(with codes): (1) Hepatitis C (2) Liver failure (3) Cirrhosis (4) Ascites (5) Pulmonary vascular congestion (6) Anemia, unspecified (7) Urinary tract infection Prognosis Plan Continue supportive care IV antibiotics Lactulose Thiamine Clinimix Dietary Evaluation Review Comments: 1. Per RN, pt is able to drink liquid but unable to manage jello. Will Downgrade his CCHO-60 diet to pureed texture. 2. offer Glucern BID if PO is still poor 3. elevated BUN, f/u and reassess after pt has a GI and nephrology consult. 4. consider clinimix as a form of protein supplementation as pt has very low albumin. Expected Outcomes/Goals: Gradual wt loss, better DM control. Plan discussed with: Other (None) PAULINA BAINS MD May 11, 2024 18:48
[2024-05-12] VITALS (23 sets, daily range): BP systolic 105–147; BP diastolic 46–89; PULSE 56–74; RESP 9–25; TEMP 97.4–98.4; O2SAT 90–100
[2024-05-12 03:44] LABS: Basophils # (auto) 0 10 ^3/uL (0-0.2); Eosinophils # (auto) 0.1 10 ^3/uL (0-0.8); Lymphocytes # (auto) 0.3 10 ^3/uL (0.4-5.4); Monocytes # (auto) 0.4 10 ^3/uL (0-1.3); White Blood Cell 2.9 10^3/uL (4.4-10.8)
[2024-05-12 03:46] LABS: Basophils % (auto) 0.6 % (0.0-2.0); Eosinophils % (auto) 4.4 % (0.0-7.0); Hematocrit 24.7 % (41.0-53.0); Lymphocytes % (auto) 11.7 % (10.0-50.0); Mean Corpuscular Hemoglobin 30.1 pg (28.0-32.0); Mean Corpuscular Hgb Conc. 32.4 g/dL (32.0-36.0); Monocytes % (auto) 14.5 % (0.0-12.0); Neutrophils % (auto) 68.8 % (37.0-80.0); Nucleated Red Blood Cells % 0.1 %; Platelet Count (auto) 75 10^3/uL (140-450); Red Blood Cells 2.66 10^6/uL (4.5-5.90)
[2024-05-12 03:52] LABS: Red Cell Distribution Width 22.2 % (11.8-14.3)
[2024-05-12 03:57] LABS: Anion Gap 7 (5-15); BUN/Creatinine Ratio 21.1 (10.0-20.0); Calcium 8.9 mg/dL (8.7-10.4); Carbon Dioxide 31 mmol/L (20-31); Magnesium 1.8 mg/dL (1.6-2.6)
[2024-05-12 03:59] LABS: INR 1.48 (0.9-1.15); Prothrombin Time 15.1 sec (9.3-11.8)
[2024-05-12 04:10] LABS: Alanine Aminotransferase 53 U/L (7-40); Albumin 2.9 g/dL (3.2-4.8); Alkaline Phosphatase 237 U/L (46-116); Aspartate Aminotransferase 86 U/L (13-40); Bilirubin, Total 7.8 mg/dL (0.2-1.0); Blood Urea Nitrogen 24 mg/dL (9-23); Chloride 113 mmol/L (98-107); Glucose 128 mg/dL (74-106); Phosphorus 2.1 mg/dL (2.4-5.1); Potassium 3.2 mmol/L (3.5-5.1); Sodium 151 mmol/L (136-145)
[2024-05-12] MEDS: SODIUM CHL 0.9% 100 ML IV ONE (05:30)
[2024-05-12] MEDS: POTASSIUM CHL 20MEQ/50ML 50 ML IV ONE (06:12)
[2024-05-12] MEDS: IPRATROPIUM BROM 0.5 MG/2.5ML INH SOL NEB PRN (08:23)
[2024-05-12] MEDS: ALBUTEROL SULF 2.5 MG/0.5ML(0.5%) NEB SOLN NEB PRN (08:23)
--- NOTE | 2024-05-12 08:56 | DVHPNRES ---
Progress Note Date Seen: May 12, 2024 Resident Creating Document: JONNY KENNEDY Medical Necessity Reason Pt with a Central, PICC or Fol: Yes The following are medically ne: Mcduffie Catheter Reason for mcduffie catheter: Strict I&O Subjective Review of Systems Patient is 63 years old male with past medical history of cirrhosis of liver, hepatitis C infection, liver shunt, chronic pain, CHF, diabetes mellitus, UTI, prostate cancer presented to the [facility] for evaluation of drug overdose. Information was gathered from reviewing the chart and talking to patient's family. As per patient's patient was found gargling and unresponsive in a car, possibly overdose of morphine, so EMS was called. As per patient might have overdosed with morphine, he had 90 of morphine which was reduced to 56 unit before arrival. On arrival of the EMS patient was given Narcan and woke up but unable to recall what happened. Initial lab workup revealed WBC 5.4, hemoglobin 9.7, hematocrit 32.2, platelets 88,000, sodium 141, potassium 4.9, BUN 23, creatinine 1.73, GFR 44, glucose 112, AST 105, ALT 65, troponin 454, ammonia 84. Troponin I elevated for 450> 548> 554, BNP 504.68. UDS positive for amphetamine, opiates. Urinalysis positive for urinary tract infection leukocyte esterase 3+, RBC 8, WBC 193, bacteria moderate.. ABG on 05/07/2024 revealed pH 7.11, pCO2 65.3, PO2 91.8, bicarbonate 20.7. Chest x-ray revealing cardiomegaly with pulmonary vascular congestion. CXR on 05/06/2024 revealed- Cardiomegaly with pulmonary vascular congestion. On 05/07/2024 CT abdomen and pelvis revealed-1. No acute findings identified. Ventral hernia seen in the lower abdomen containing multiple loops of nonobstructed small- bowel. Cirrhotic liver.Splenomegaly. Trace abdominopelvic ascites. CT head on 05/07/2024 revealed- No acute intracranial hemorrhage, midline shift or mass effect. Echo 2D on 07/03/2023-Normal left ventricular size and dimension. Normal left ventricular systolic function estimated ejection fraction 55%. There is a grade 1 diastolic dysfunction. Normal right ventricular size and dimension. Normal rightt ventricular systolic function. Patient was admitted at [facility] in July 06, 2023 due to GI bleeding, cirrhosis of liver he had hepatitis-C, cellulitis of the left lower limb, MRSA, blood culture Klebsiella oxytocia Streptococcus mitis, wound culture Enterococcus faecalis, MRSA October 05, 2021, due to sepsis, Streptococcus agalactiae-suspected prosthetic joint infection November 05, 2020. Ascites, hepatitis-C infection, cellulitis of the left lower extremity PMHCancer, cirrhosis of liver, hepatitis C infection, liver shunt, chronic pain, CHF, diabetes mellitus, UTI, prostate cancer PSH-Hernia Repair, left leg surgery has nail on it Family History-Reviewed, noncontributory to the management of this case. Past Social History-The patient lives at home, smokes cigarettes less than 1 pack per day, denies alcohol or illicit drugs abuse. -home medications ergo cholecalciferol, Lasix 20 mg b.i.d., gabapentin 300 mg q.8h, insulin glargine 15 units subcutaneously b.i.d., lactulose 30 mL p.r.n., morphine sulfate, rifaximin 550 b.i.d., spironolactone 50 daily Patient was seen today for clinical evaluation. Labs and chart reviewed Overnight blood pressure ranging from 100-/145 46-68, Pulse 56-74, temperature 97.1-98.3 I/O- intake 2962, output 1900, positive balance 1062 Lab revealed Patient had hypokalemia today, supplemented, Patient was more awake and alert today, transferred to telemetry Patient continued to be pancytopenic Patient was transferred to telemetry WBC 5.4> 6.3> 4.0> 3.6> 4.4> 3.6> 2.9 Hemoglobin 9.7> 9.7> 8.8> 8.2> 7.7> 7.8> 7.6> 8.0 Platelet 88> 110> 81> 72> 65> 72> 72> 75 Sodium 141> 142> 148> 149> 154> 155> 151 Potassium 4.9> 4.7> 3.8> 3.9> 4.1> 3.5> 3.2-supplemented BUN 23>> 27> 28> 29> 28> 24 Serum creatinine 1.73> 1.66> 1.25> 1.34> 1.36> 1.14 INR 1.40> 1.30> 1.39> 1.35> 1.35> 1.54> 1.5> 1.48 Total bilirubin- 6.0> 4.7> 5.9> 7.0> 7.6> 7.8 AST 105> 38> 84> 80> 80> 86 ALT-65> 70> 63> 59> 55> 54> 53 Alkaline phosphatase 287> 276> 263> 237> 237 Ammonia 84> 10> 41> 16> 30 Albumin 3.3> 2.9> 2.9> 2.9> 2.8> 2.9 Urine culture on 05/07/2024 preliminary >100,000 CFU/mL Klebsiella pneumoniae ESBL, on ertapenem 05/08/2024- the patient was noted to go into an atrial fibrillation with rapid ventricular response. ER staff administered diltiazem 20 mg IV once. [id number] VASc score: 1 point, HAS-BLED: score: 2 points. 05/08/2024-blood culture preliminary no growth MRSA screening negative Provider Called and spoke to patient's Lorna, , discussed patient's current medical condition, plan of care and answered her questions Objective vital signs Vital Sign Date Time Temp Pulse Resp B/P (MAP) Pulse Ox O2 Delivery O2 Flow Rate FiO2 05/12/24 08:31 56 14 100 05/12/24 08:23 Nasal Cannula 1.0 05/12/24 08:23 24 05/12/24 07:00 122/59 (80) 05/12/24 04:00 97.8 97.8 Total Intake and Output 05/11/24 05/11/24 05/12/24 14:59 22:59 06:59 Intake Total 377.25 ml 1206.75 ml 1378 ml Output Total 1450 ml 450 ml Balance 377.25 ml -243.25 ml 928 ml medications Current Medications Medications Dose Ordered Sig/Kenisha Route Start Time Stop Time Status Last Admin Dose Admin Sodium Chloride 10 ml Q8HR IV 05/07/24 06:00 05/12/24 06:12 10 ML Ondansetron HCl 4 mg Q4HP PRN IV 05/06/24 22:15 Docusate Sodium 100 mg BIDPRN PRN PO 05/06/24 22:15 Pantoprazole Sodium 40 mg BID IV 05/08/24 22:00 05/11/24 22:24 40 MG Rifaximin 550 mg BID PO 05/09/24 22:00 05/11/24 22:23 550 MG Ertapenem 1 gm/ Sodium Chloride 50 ml @ 100 mls/hr DAILY IV 05/10/24 10:00 05/11/24 09:35 100 MLS/HR Methadone HCl 10 mg Q8HR PO 05/09/24 22:00 05/12/24 06:13 10 MG Thiamine HCl 100 mg DAILY IV 05/10/24 10:00 05/11/24 09:32 100 MG Flecainide Acetate 100 mg Q12HR PO 05/09/24 22:00 05/11/24 22:23 100 MG Lactulose 30 ml TID NH 05/10/24 14:00 05/12/24 06:13 30 ML Folic Acid 1 mg DAILY PO 05/11/24 10:00 05/11/24 09:32 1 MG Amino Acids 0 ml @ 0 mls/hr PER PHARMACY IV 05/10/24 17:00 Diagnostic Test (Pha) 1 strip Q6HR 05/10/24 18:00 05/12/24 06:16 1 STRIP Insulin Human Regular FOLLOW SLIDING SCALE Q6HR SC 05/10/24 18:00 Dextrose 50 ml UD IV 05/10/24 17:15 Amino Acids/ Electrolytes/ Dextrose 2,000 ml @ 41 mls/hr DAILY@2200 IV 05/10/24 22:00 05/11/24 22:25 41 MLS/HR Haloperidol Lactate 5 mg Q8HP PRN IM 05/10/24 19:15 05/12/24 02:16 5 MG Albuterol 2.5 mg Q6HPRN PRN NEB 05/11/24 06:30 05/12/24 08:23 2.5 MG Ipratropium [place] 0.5 mg Q6HPRN PRN NEB 05/11/24 06:30 05/12/24 08:23 0.5 MG Dextrose 1,000 ml @ 75 mls/hr [id number] IV 05/11/24 15:45 05/11/24 16:56 75 MLS/HR Examination General examination- confused disoriented, drowsy HEENT- PEERLA, no acute nasal discharge Cardiovascular- S1-S2 audible, rate and rhythm regular, no murmur Respiratory- CTAB, no wheeze or rhonchi Gastrointestinal-nontender, bowel sound+. Abdomen distended+, abdominal hernia noted Musculoskeletal-no acute joint swelling or tenderness or redness# Lower extremity- + bilateral leg edema+ Neurological- cranial nerves intact, no acute dysarthria or dysphagia Psychiatry- drowsy, dizzy Skin- bilateral lower extremity skin pigmentation laboratory and microbiology Laboratory Tests 05/12/24 03:21 Test 05/12/24 03:21 Range/Units Serum Glucose 128 H 74-106 mg/dL Microbiology Date/Time Source Procedure Growth Status 05/08/24 23:41 Nose MRSA Screen - Final Complete 05/08/24 08:45 Blood Blood Culture - Preliminary NO GROWTH AFTER 72 HOURS OF INCUBATION. Resulted 05/07/24 01:30 Voided Urine Urine Culture - Final Klebsiella pneumoniae - ESBL Complete Problem List/Assessment/Plan Problem List/Assessment/Plan Assessment and plan Neurology -hepatic encephalopathy/toxic encephalopathy/metabolic encephalopathy due to cirrhosis of liver -substance abuse -amphetamine -avoid dehydration and nephrotoxic and hepatotoxic Cardiovascular -Atrial fibrillation with rapid ventricular response, new onset -CHF likely diastolic, LVEF 55%, -acute pulmonary edema -NSTEMI type 2 likely demand led ischemia -continue current management Respiratory -acute hypoxic respiratory failure likely due to pneumonia Gram-positive versus Gram-negative Acute hypercarbic respiratory failure -continue current management Gastrointestinal -hepatic encephalopathy -hepatitis-C positive -cirrhosis of liver -Hepatitis-C decompensated liver cirrhosis with anasarca, - trace ascites, coagulopathy, -melena -transaminitis -suspected spontaneous bacterial peritonitis --continue rifaximin Continue ertapenem IV as prescribed -avoid dehydration and nephrotoxic and hepatotoxic drugs -status post gastroenterology consult Genitourinary/renal -hepatorenal syndrome - dehydration and hepatotoxic and nephrotoxic drugs Infectious -sepsis due to UTI/pneumonia -spontaneous bacterial peritonitis -Urine culture on 05/07/2024 preliminary >100,000 CFU/mL Klebsiella pneumoniae ESBL Continue IV ertapenem as prescribed Bean Sorter -pancytopenia likely due to hypersplenism -hypersplenism -anemia -thrombocytopenia -leukopenia -monitor CBC Metabolic or endocrine -Metabolic acidosis -hypernatremia -hyper ammonia -obesity, BMI 36.4 -substance abuse, amphetamine Skin or elementary Skin in pigmentation on the bilateral lower extremity Mcduffie's Goals of care, Code status ; discussed with >15 minutes PUD prophylaxis: Pantoprazole DVT prophylaxis: SCDSCD Plan discussed with Dr. Amaro , nursing staff, Total time spent on patient evaluation, chart review, assessment and plan, Critical time spent excluding procedure 61 minutes Plan discussed with: Patient, Spouse, Other (RN) My Orders My Orders Orders - JONNY KENNEDY Procedure Category Date Status Time Npo (Nothing By DIET 05/11/24 Transmitted Mouth) Diet Dinner Sequential ANTHONY 05/11/24 In Process Compression Device 17:37 Dietary Evaluation Review Comments: 1. Per RN, pt is able to drink liquid but unable to manage jello. Will Downgrade his CCHO-60 diet to pureed texture. 2. offer Glucern BID if PO is still poor 3. elevated BUN, f/u and reassess after pt has a GI and nephrology consult. 4. consider clinimix as a form of protein supplementation as pt has very low albumin. Expected Outcomes/Goals: Gradual wt loss, better DM control. Date of Service: May 12, 2024 Billing Provider: JUVENAL AMARO MD Common Visit Codes: 79752-[id number] CARE 30-74 MIN JONNY KENNEDY May 12, 2024 08:56 JUVENAL AMARO MD May 14, 2024 20:11
[2024-05-12 13:26] LABS: Anion Gap 9 (5-15); Calcium 8.7 mg/dL (8.7-10.4); Carbon Dioxide 28 mmol/L (20-31)
[2024-05-12 13:29] LABS: Chloride 111 mmol/L (98-107); Potassium 3.3 mmol/L (3.5-5.1); Sodium 148 mmol/L (136-145)
[2024-05-12 13:31] LABS: BUN/Creatinine Ratio 17.5 (10.0-20.0); Blood Urea Nitrogen 20 mg/dL (9-23)
[2024-05-12 13:34] LABS: Glucose 136 mg/dL (74-106)
[2024-05-12 19:57] LABS: Basophils # (auto) 0 10 ^3/uL (0-0.2); Eosinophils # (auto) 0.1 10 ^3/uL (0-0.8); Hemoglobin 8.2 g/dL (13.5-17.5); Lymphocytes # (auto) 0.3 10 ^3/uL (0.4-5.4); Monocytes # (auto) 0.4 10 ^3/uL (0-1.3)
[2024-05-12 19:58] LABS: Basophils % (auto) 0.6 % (0.0-2.0); Eosinophils % (auto) 5.1 % (0.0-7.0); Lymphocytes % (auto) 11.6 % (10.0-50.0); Mean Corpuscular Hgb Conc. 31.5 g/dL (32.0-36.0); Mean Corpuscular Volume 98.4 fL (80.0-100.0); Monocytes % (auto) 14.2 % (0.0-12.0); Neutrophils # (auto) 1.9 10 ^3/uL (1.6-8.6); Neutrophils % (auto) 68.5 % (37.0-80.0); Nucleated Red Blood Cells % 0.5 %; Platelet Count (auto) 74 10^3/uL (140-450); Red Blood Cells 2.64 10^6/uL (4.5-5.90); White Blood Cell 2.8 10^3/uL (4.4-10.8)
[2024-05-12 20:03] LABS: Anion Gap 6 (5-15); BUN/Creatinine Ratio 17.9 (10.0-20.0); Blood Urea Nitrogen 19 mg/dL (9-23); Calcium 8.8 mg/dL (8.7-10.4); Carbon Dioxide 28 mmol/L (20-31); Glucose 99 mg/dL (74-106); Potassium 3.6 mmol/L (3.5-5.1); Total Protein 6.1 g/dL (5.7-8.2)
[2024-05-12 20:15] LABS: Alanine Aminotransferase 52 U/L (7-40); Albumin 2.9 g/dL (3.2-4.8); Alkaline Phosphatase 242 U/L (46-116); Aspartate Aminotransferase 95 U/L (13-40); Bilirubin, Total 8.4 mg/dL (0.2-1.0); Chloride 113 mmol/L (98-107); Sodium 147 mmol/L (136-145)
[2024-05-12 20:18] LABS: Red Cell Distribution Width 22.2 % (11.8-14.3)
--- NOTE | 2024-05-12 22:24 | DVHPN2 ---
Progress Note - Dictate Date Seen: May 12, 2024 Medical Necessity Reason Pt with a Central, PICC or Fol: Yes The following are medically ne: Mcduffie Catheter Reason for mcduffie catheter: Strict I&O Subjective Patient is slightly more alert and arousable today Patient has been downgraded to the floor Ammonia level is back up to 41 Persistent mod elevation in liver enzymes vital signs Vital Sign Date Time Temp Pulse Resp B/P (MAP) Pulse Ox O2 Delivery O2 Flow Rate FiO2 05/12/24 21:00 97.4 66 17 147/77 (100) 97 97.4 05/12/24 08:23 Nasal Cannula 1.0 05/12/24 08:23 24 Total Intake and Output 05/11/24 05/11/24 05/12/24 14:59 22:59 06:59 Intake Total 377.25 ml 1206.75 ml 1378 ml Output Total 1450 ml 450 ml Balance 377.25 ml -243.25 ml 928 ml medications Current Medications Medications Dose Ordered Sig/Kenisha Route Start Time Stop Time Status Last Admin Dose Admin Sodium Chloride 10 ml Q8HR IV 05/07/24 06:00 05/12/24 13:05 10 ML Ondansetron HCl 4 mg Q4HP PRN IV 05/06/24 22:15 Docusate Sodium 100 mg BIDPRN PRN PO 05/06/24 22:15 Pantoprazole Sodium 40 mg BID IV 05/08/24 22:00 05/12/24 09:10 40 MG Rifaximin 550 mg BID PO 05/09/24 22:00 05/12/24 09:11 550 MG Ertapenem 1 gm/ Sodium Chloride 50 ml @ 100 mls/hr DAILY IV 05/10/24 10:00 05/12/24 09:10 100 MLS/HR Methadone HCl 10 mg Q8HR PO 05/09/24 22:00 05/12/24 13:08 10 MG Thiamine HCl 100 mg DAILY IV 05/10/24 10:00 05/12/24 09:10 100 MG Flecainide Acetate 100 mg Q12HR PO 05/09/24 22:00 05/12/24 09:11 100 MG Folic Acid 1 mg DAILY PO 05/11/24 10:00 05/12/24 09:11 1 MG Diagnostic Test (Pha) 1 strip Q6HR 05/10/24 18:00 05/12/24 19:13 1 STRIP Insulin Human Regular FOLLOW SLIDING SCALE Q6HR SC 05/10/24 18:00 Dextrose 50 ml UD IV 05/10/24 17:15 Haloperidol Lactate 5 mg Q8HP PRN IM 05/10/24 19:15 05/12/24 12:42 5 MG Albuterol 2.5 mg Q6HPRN PRN NEB 05/11/24 06:30 05/12/24 08:23 2.5 MG Ipratropium [place] 0.5 mg Q6HPRN PRN NEB 05/11/24 06:30 05/12/24 08:23 0.5 MG Dextrose 1,000 ml @ 75 mls/hr [id number] IV 05/11/24 15:45 05/12/24 12:48 75 MLS/HR Enteral Nutritional Formula 1,000 ml 30ML/HR GT 05/12/24 12:45 Lactulose 30 ml TID NG 05/12/24 22:00 objective General: Arousable awake but altered and lethargic HEENT: NC/AT EOMI dry mucous membranes Heart: Tachycardic regular rhythm Abdomen: Soft nontender nondistended Extremity: No clubbing cyanosis or edema laboratory and microbiology Laboratory Tests 05/12/24 19:30 Test 05/12/24 19:30 Range/Units Serum Glucose 99 74-106 mg/dL Problems(with codes): (1) Hepatitis C (2) Liver failure (3) Cirrhosis (4) Ascites (5) Pulmonary vascular congestion (6) Anemia, unspecified (7) Urinary tract infection (8) Generalized weakness (9) Hepatic encephalopathy (10) Altered mental status Prognosis Plan Continue supportive care and monitor labs Continue oral lactulose Meld score is 19 points suggestive of good prognosis Maddrey discrimination function is 27 points, patient does not need steroids at this time Swallow evaluation and advance diet as tolerated Outpatient follow up with GI Services once awake and stable for further evaluation and management of hepatitis-C Dietary Evaluation Review Comments: 1. Per RN, pt is able to drink liquid but unable to manage jello. Will Downgrade his CCHO-60 diet to pureed texture. 2. offer Glucern BID if PO is still poor 3. elevated BUN, f/u and reassess after pt has a GI and nephrology consult. 4. consider clinimix as a form of protein supplementation as pt has very low albumin. Expected Outcomes/Goals: Gradual wt loss, better DM control. Plan discussed with: Patient, Other (ICU Nurse at 3 pm) PAULINA BAINS MD May 12, 2024 22:24
[2024-05-12] MEDS: LACTULOSE 20Gm/30ML SOLN NG SCH (22:57)
[2024-05-13] VITALS (35 sets, daily range): BP systolic 98–154; BP diastolic 36–79; PULSE 8–87; RESP 11–22; TEMP 97.3–97.8; O2SAT 50–100
[2024-05-13] MEDS: Jevity 1.2 Cal/Fiber 1 Liter GT SCH (01:23)
[2024-05-13 07:27] LABS: Basophils # (auto) 0 10 ^3/uL (0-0.2); Basophils % (auto) 0.2 % (0.0-2.0); Eosinophils # (auto) 0.1 10 ^3/uL (0-0.8); Eosinophils % (auto) 3.2 % (0.0-7.0); Hematocrit 29.7 % (41.0-53.0); Hemoglobin 8.6 g/dL (13.5-17.5); Lymphocytes # (auto) 0.3 10 ^3/uL (0.4-5.4); Mean Corpuscular Hgb Conc. 29.1 g/dL (32.0-36.0); Mean Corpuscular Volume 106.5 fL (80.0-100.0); Monocytes # (auto) 0.5 10 ^3/uL (0-1.3); Monocytes % (auto) 14.5 % (0.0-12.0); Neutrophils # (auto) 2.6 10 ^3/uL (1.6-8.6); Neutrophils % (auto) 73.1 % (37.0-80.0); Nucleated Red Blood Cells % 0.1 %; Red Blood Cells 2.79 10^6/uL (4.5-5.90); White Blood Cell 3.6 10^3/uL (4.4-10.8)
[2024-05-13 07:28] LABS: Platelet Count (auto) 69 10^3/uL (140-450)
[2024-05-13 07:32] LABS: Anion Gap 8 (5-15); BUN/Creatinine Ratio 15.9 (10.0-20.0); Blood Urea Nitrogen 17 mg/dL (9-23); Carbon Dioxide 28 mmol/L (20-31); Potassium 4.1 mmol/L (3.5-5.1); Total Protein 6.5 g/dL (5.7-8.2)
[2024-05-13 07:33] LABS: Alanine Aminotransferase 56 U/L (7-40); Alkaline Phosphatase 269 U/L (46-116); Aspartate Aminotransferase 93 U/L (13-40); Chloride 111 mmol/L (98-107); Glucose 117 mg/dL (74-106); Sodium 147 mmol/L (136-145)
[2024-05-13 09:41] LABS: Platelet Estimate Decreased
--- NOTE | 2024-05-13 12:01 | DVHPNRES ---
Progress Note Date Seen: May 13, 2024 Resident Creating Document: JONNY KENNEDY Medical Necessity Reason Pt with a Central, PICC or Fol: Yes The following are medically ne: Mcduffie Catheter Reason for mcduffie catheter: Strict I&O Subjective Review of Systems Patient is 63 years old male with past medical history of cirrhosis of liver, hepatitis C infection, liver shunt, chronic pain, CHF, diabetes mellitus, UTI, prostate cancer presented to the [facility] for evaluation of drug overdose. Information was gathered from reviewing the chart and talking to patient's family. As per patient's patient was found gargling and unresponsive in a car, possibly overdose of morphine, so EMS was called. As per patient might have overdosed with morphine, he had 90 of morphine which was reduced to 56 unit before arrival. On arrival of the EMS patient was given Narcan and woke up but unable to recall what happened. Initial lab workup revealed WBC 5.4, hemoglobin 9.7, hematocrit 32.2, platelets 88,000, sodium 141, potassium 4.9, BUN 23, creatinine 1.73, GFR 44, glucose 112, AST 105, ALT 65, troponin 454, ammonia 84. Troponin I elevated for 450> 548> 554, BNP 504.68. UDS positive for amphetamine, opiates. Urinalysis positive for urinary tract infection leukocyte esterase 3+, RBC 8, WBC 193, bacteria moderate.. ABG on 05/07/2024 revealed pH 7.11, pCO2 65.3, PO2 91.8, bicarbonate 20.7. Chest x-ray revealing cardiomegaly with pulmonary vascular congestion. CXR on 05/06/2024 revealed- Cardiomegaly with pulmonary vascular congestion. On 05/07/2024 CT abdomen and pelvis revealed-1. No acute findings identified. Ventral hernia seen in the lower abdomen containing multiple loops of nonobstructed small- bowel. Cirrhotic liver.Splenomegaly. Trace abdominopelvic ascites. CT head on 05/07/2024 revealed- No acute intracranial hemorrhage, midline shift or mass effect. Echo 2D on 07/03/2023-Normal left ventricular size and dimension. LVEF- 55%. There is a grade 1 diastolic dysfunction. Normal right ventricular size and dimension. Normal rightt ventricular systolic function. Patient was admitted at [facility] in July 06, 2023 due to GI bleeding, cirrhosis of liver he had hepatitis-C, cellulitis of the left lower limb, MRSA, blood culture Klebsiella oxytocia Streptococcus mitis, wound culture Enterococcus faecalis, MRSA October 05, 2021, due to sepsis, Streptococcus agalactiae-suspected prosthetic joint infection November 05, 2020. Ascites, hepatitis-C infection, cellulitis of the left lower extremity PMHCancer, cirrhosis of liver, hepatitis C infection, liver shunt, chronic pain, CHF, diabetes mellitus, UTI, prostate cancer PSH-Hernia Repair, left leg surgery has nail on it Family History-Reviewed, noncontributory to the management of this case. Past Social History-The patient lives at home, smokes cigarettes less than 1 pack per day, denies alcohol or illicit drugs abuse. -home medications ergo cholecalciferol, Lasix 20 mg b.i.d., gabapentin 300 mg q.8h, insulin glargine 15 units subcutaneously b.i.d., lactulose 30 mL p.r.n., morphine sulfate, rifaximin 550 b.i.d., spironolactone 50 daily Patient was seen today for clinical evaluation. Labs and chart reviewed Overnight blood pressure ranging from 105-147/46-76, pulse 56 -70, temperature 97.3-98.4 I/O- intake 1030, output 800, positive balance 230 Lab revealed Patient with pancytopenia Patient aspirated at a.m. and was having hypoxic episode with respiratory distress. Patient was intubated and put on mechanical ventilator. PICC line was placed on left arm Ordered CTA head and neck and carotid Doppler On Versed, fentanyl, Levophed Ordered nephrology consult WBC 5.4> 6.3> 4.0> 3.6> 4.4> 3.6> 2.9> 2.6 Hemoglobin 9.7> 9.7> 8.8> 8.2> 7.7> 7.8> 7.6> 8.0> 8.6 Platelet 88> 110> 81> 72> 65> 72> 72> 75> 69 Sodium 141> 142> 148> 149> 154> 155> 151> 147 Potassium 4.9> 4.7> 3.8> 3.9> 4.1> 3.5> 3.2> 4.1 BUN 23>> 27> 28> 29> 28> 24> 19 Serum creatinine 1.73> 1.66> 1.25> 1.34> 1.36> 1.14> 1.06 INR 1.40> 1.30> 1.39> 1.35> 1.35> 1.54> 1.5> 1.48 Total bilirubin- 6.0> 4.7> 5.9> 7.0> 7.6> 7.8> 8.4 AST 105> 38> 84> 80> 80> 86> 95 ALT-65> 70> 63> 59> 55> 54> 53> 52 Alkaline phosphatase 287> 276> 263> 237> 237> 242 Ammonia 84> 10> 41> 16> 30> 41 Albumin 3.3> 2.9> 2.9> 2.9> 2.8> 2.9> 2 point Urine culture on 05/07/2024 preliminary >100,000 CFU/mL Klebsiella pneumoniae ESBL, on ertapenem 05/08/2024- the patient was noted to go into an atrial fibrillation with rapid ventricular response. ER staff administered diltiazem 20 mg IV once. [id number] VASc score: 1 point, HAS-BLED: score: 2 points. 05/08/2024-blood culture preliminary no growth MRSA screening negative Provider Called and spoke to patient's Lorna, , discussed patient's current medical condition, plan of care and answered her questions Objective vital signs Vital Sign Date Time Temp Pulse Resp B/P (MAP) Pulse Ox O2 Delivery O2 Flow Rate FiO2 05/13/24 09:00 97.5 87 15 135/56 (82) 90 97.5 05/13/24 02:30 Nasal Cannula 1.0 05/13/24 02:30 24 Total Intake and Output 05/12/24 05/12/24 05/13/24 15:00 23:00 07:00 Intake Total 839 ml 75 ml 0 ml Output Total 400 ml 400 ml Balance 839 ml -325 ml -400 ml medications Current Medications Medications Dose Ordered Sig/[place] Route Start Time Stop Time Status Last Admin Dose Admin Sodium Chloride 10 ml Q8HR IV 05/07/24 06:00 05/13/24 06:38 10 ML Ondansetron HCl 4 mg Q4HP PRN IV 05/06/24 22:15 Docusate Sodium 100 mg BIDPRN PRN PO 05/06/24 22:15 Pantoprazole Sodium 40 mg BID IV 05/08/24 22:00 05/13/24 10:39 40 MG Rifaximin 550 mg BID PO 05/09/24 22:00 05/13/24 10:39 550 MG Ertapenem 1 gm/ Sodium Chloride 50 ml @ 100 mls/hr DAILY IV 05/10/24 10:00 05/13/24 10:39 100 MLS/HR Methadone HCl 10 mg Q8HR PO 05/09/24 22:00 05/13/24 06:38 10 MG Thiamine HCl 100 mg DAILY IV 05/10/24 10:00 05/13/24 10:39 100 MG Flecainide Acetate 100 mg Q12HR PO 05/09/24 22:00 05/13/24 10:40 100 MG Folic Acid 1 mg DAILY PO 05/11/24 10:00 05/13/24 10:39 1 MG Diagnostic Test (Pha) 1 strip Q6HR 05/10/24 18:00 05/13/24 11:35 1 STRIP Insulin Human Regular FOLLOW SLIDING SCALE Q6HR SC 05/10/24 18:00 05/13/24 11:38 2 UNITS Dextrose 50 ml UD IV 05/10/24 17:15 Haloperidol Lactate 5 mg Q8HP PRN IM 05/10/24 19:15 05/12/24 12:42 5 MG Albuterol 2.5 mg Q6HPRN PRN NEB 05/11/24 06:30 05/12/24 08:23 2.5 MG Ipratropium [place] 0.5 mg Q6HPRN PRN NEB 05/11/24 06:30 05/12/24 08:23 0.5 MG Dextrose 1,000 ml @ 75 mls/hr [id number] IV 05/11/24 15:45 05/12/24 12:48 75 MLS/HR Enteral Nutritional Formula 1,000 ml 30ML/HR GT 05/12/24 12:45 05/13/24 01:23 1,000 ML Lactulose 30 ml TID NG 05/12/24 22:00 05/13/24 06:37 30 ML Examination General examination- confused disoriented, drowsy HEENT- PEERLA, no acute nasal discharge Cardiovascular- S1-S2 audible, rate and rhythm regular, no murmur Respiratory- CTAB, no wheeze or rhonchi Gastrointestinal-nontender, bowel sound+. Abdomen distended+, abdominal hernia noted Musculoskeletal-no acute joint swelling or tenderness or redness# Lower extremity- + bilateral leg edema+ Neurological- cranial nerves intact, no acute dysarthria or dysphagia Psychiatry- drowsy, dizzy Skin- bilateral lower extremity skin pigmentation laboratory and microbiology Laboratory Tests 05/13/24 05:00 Test 05/13/24 05:00 Range/Units Serum Glucose 117 H 74-106 mg/dL Microbiology Date/Time Source Procedure Growth Status 05/08/24 23:41 Nose MRSA Screen - Final Complete 05/08/24 08:45 Blood Blood Culture - Final NO GROWTH AFTER 5 DAYS OF INCUBATION. Complete 05/07/24 01:30 Voided Urine Urine Culture - Final Klebsiella pneumoniae - ESBL Complete Problem List/Assessment/Plan Problem List/Assessment/Plan Assessment and plan -Patient aspirated at a.m. and was having hypoxic episode with respiratory distress. Patient was intubated and put on mechanical ventilator. PICC line was placed on left arm Ordered CTA head and neck and carotid Doppler Neurology -hepatic encephalopathy/toxic encephalopathy/metabolic encephalopathy due to cirrhosis of liver Septic shock -substance abuse -amphetamine -patient on mechanical ventilation, on sedation -avoid dehydration and nephrotoxic and hepatotoxic Cardiovascular -Atrial fibrillation with rapid ventricular response, new onset -CHF likely diastolic, LVEF 55%, -acute pulmonary edema -NSTEMI type 2 likely demand led ischemia -continue current management Respiratory -aspiration pneumonia -acute hypoxic respiratory failure likely due to pneumonia Gram-positive versus Gram-negative Acute hypercarbic respiratory failure -continue current management Gastrointestinal -hepatic encephalopathy -hepatitis-C positive -cirrhosis of liver -Hepatitis-C decompensated liver cirrhosis with anasarca, - trace ascites, coagulopathy, -melena -transaminitis -suspected spontaneous bacterial peritonitis --continue rifaximin Continue ertapenem IV as prescribed -avoid dehydration and nephrotoxic and hepatotoxic drugs -status post gastroenterology consult Genitourinary/renal -hepatorenal syndrome - dehydration and hepatotoxic and nephrotoxic drugs Infectious -septic shock o UTI/pneumonia -spontaneous bacterial peritonitis -Urine culture on 05/07/2024 preliminary >100,000 CFU/mL Klebsiella pneumoniae ESBL Continue IV ertapenem as prescribed [employer] -pancytopenia likely due to hypersplenism -hypersplenism -anemia -thrombocytopenia -leukopenia -monitor CBC Metabolic or endocrine -Metabolic acidosis -hypernatremia -hyper ammonia -obesity, BMI 36.4 -substance abuse, amphetamine Skin or elementary Skin in pigmentation on the bilateral lower extremity Mcduffie's Drips-Versed, fentanyl, Levophed ETT PICC line Goals of care, Code status ; discussed with >15 minutes PUD prophylaxis: Pantoprazole DVT prophylaxis: SCDSCD Plan discussed with Dr. Lozada , nursing staff, Total time spent on patient evaluation, chart review, assessment and plan, Critical time spent including mechanical ventilation, excluding procedure 87 minutes Plan discussed with: Spouse (RN) My Orders My Orders Orders - JONNY KENNEDY Procedure Category Date Status Time Sitter 1:1 ORDERS 05/12/24 Transmitted 16:12 Dietary Evaluation Review Comments: 1. Per RN, pt is able to drink liquid but unable to manage jello. Will Downgrade his CCHO-60 diet to pureed texture. 2. offer Glucern BID if PO is still poor 3. elevated BUN, f/u and reassess after pt has a GI and nephrology consult. 4. consider clinimix as a form of protein supplementation as pt has very low albumin. Expected Outcomes/Goals: Gradual wt loss, better DM control. JONNY KENNEDY May 13, 2024 12:01
[2024-05-13] MEDS: fentaNYL Drip 2500mCg/250mlNS 250 ML IV ONE (13:04)
[2024-05-13] MEDS: ETOMIDATE (2MG/ML) 20ML VIAL IV ONE (13:04)
[2024-05-13] MEDS: MIDAZOLAM DRIP 50 mg/50mL 50 ML IV ONE (13:05)
[2024-05-13] MEDS: fentaNYL Drip 2500mCg/250mlNS 250 ML IV SCH (13:05)
[2024-05-13] MEDS: ROCURONIUM 10MG/ML 10ML VIAL IV ONE (13:05)
[2024-05-13] MEDS: NOREPINEPHRINE 8 MG/250ML KIT 250 ML IV ONE ×2 (13:05→23:41)
[2024-05-13] MEDS: MIDAZOLAM DRIP 50 mg/50mL 50 ML IV SCH (13:05)
[2024-05-13 13:58] LABS: Potassium 4.3 mmol/L (3.5-5.1)
[2024-05-13 13:59] LABS: Anion Gap 9 (5-15); Calcium 9.2 mg/dL (8.7-10.4); Carbon Dioxide 24 mmol/L (20-31)
[2024-05-13 14:00] LABS: Chloride 112 mmol/L (98-107); Sodium 145 mmol/L (136-145)
[2024-05-13] MEDS: PHENYLEPHRINE IV 250 ML IV ONE (14:04)
[2024-05-13 14:06] LABS: Blood Urea Nitrogen 24 mg/dL (9-23); Glucose 153 mg/dL (74-106)
--- NOTE | 2024-05-13 14:06 | DVH ---
CHEST RADIOGRAPH Indication: intubation Technique: Frontal view of the chest. Comparison: XY CHEST PORTABLE on DOS: 05/11/24, XY CHEST PORTABLE on DOS: 05/10/24, XY CHEST PORTABLE o n DOS: 05/09/24, XY CHEST PORTABLE on DOS: 05/07/24, XY CHEST PORTABLE on DOS: 05/06/24, XY CHEST PORTAB LE on DOS: 05/11/24 FINDINGS: LUNGS AND PLEURAL SPACES: See below. HEART: Cardiomegaly with mild congestion. MEDIASTINUM: Unremarkable. Normal mediastinal contour. BONES/JOINTS: Unremarkable. No acute fracture. TUBES, LINES AND DEVICES: Stable tubes and lines. OTHER FINDINGS: . .. IMPRESSION: Cardiomegaly with mild congestion.
[2024-05-13] MEDS: PHENYLEPHRINE IV 250 ML IV SCH (14:15)
[2024-05-13 14:16] LABS: Base Excess -3.9 mmol/L (-2.0-3.0)
[2024-05-13] MEDS: IOHEXOL 350 MG/ML 100ML IJ ONE (16:35)
[2024-05-13 16:38] LABS: Base Excess -2.7 mmol/L (-2.0-3.0)
--- NOTE | 2024-05-13 16:46 | DVH ---
Carotid Duplex Clinical History: Fistula post Central line Comparison: None Technique: Duplex Doppler evaluation of the extracranial carotid and vertebral arteries including color Doppler and spectral/pulsed waveform analysis was performed. Findings: Real-time imaging demonstrates a possible fistula at the level of the distal common carotid artery an d internal jugular vein. Findings could be confirmed with MR angiography and/or CT angiography if cli nically indicated. IMPRESSION: 1. Possible fistula as discussed above.
--- NOTE | 2024-05-13 17:56 | DVHNC2 ---
Intubation Indication: Respiratory Insufficiency, Altered Mental Status, Airway Protection Prep: Preoxygenation Pretreated with: Analgesia, Sedation Medicated with: Nothing Intubation Approach: Orotracheal Intubation size: cm (8) Informed consent obtained: Yes Risks/benefits/alt described: Yes Notes Supervised by Dr. Orellana Date of Service: May 13, 2024 Billing Provider: LUIS ALFREDO CARLISLE MD Common Visit Codes: PROCEDURE ONLY Procedure Codes: [id number] MELCHOR SPANGLER May 13, 2024 17:56 LUIS ALFREDO CARLISLE MD May 22, 2024 22:32
[2024-05-13] MEDS: NOREPINEPHRINE 8 MG/250ML KIT 250 ML IV SCH (18:15)
[2024-05-13] MEDS ORDERED: MIDAZOLAM DRIP 50 mg/50mL 50 ML IV SCH (18:30)
--- NOTE | 2024-05-13 18:56 | DVHINCON2 ---
Date of service: May 13, [address] Orellana Reason for Consultation Acute kidney injury History of Present Illness 63-year-old male with a complicated medical history including methamphetamine abuse, hep C, decompensated liver cirrhosis, diastolic heart failure presented to the hospital initially for altered mental status in the setting of hepatic encephalopathy. Patient had a prolonged hospital course including diagnosis sounds multidrug resistant urinary tract infection, and persistent hepatic encephalopathy with altered mental state requiring NG tube for feeding. Today patient was found to have aspirated tube feeding and rapid response was called. Patient required intubation and central line placement. Patient was transferred to the ICU is currently on Levophed drip. Nephrology consulted due to decreased urinary output. Past Medical History As above Allergies: Coded Allergies: Morphine (Verified Allergy, Severe, 05/11/24) PER SISTER EBONI HUERTA Home Meds Active Scripts Spironolactone (Aldactone) 25 Mg Tab, 50 MG PO DAILY for 30 Days, #60 TAB Prov:JANETT SILVERMAN 07/09/23 Rifaximin (Xifaxan) 550 Mg Tab, 550 MG PO BID for 30 Days, #60 TAB Prov:JANETT SILVERMAN [facility] 07/09/23 Furosemide (Furosemide) 20 Mg Tab, 60 MG PO BIDD for 30 Days, #180 TAB Prov:JANETT SILVERMAN 07/09/23 Lactulose (Lactulose) 10 Gm/15 Ml Trista, 30 ML PO Q2HR for 30 Days, #30 ML Prov:JANETT SILVERMAN 07/09/23 Ergocalciferol (VITAMIN D 55620 UNIT) 50,000 [place], [address] UNIT PO Q7D for 30 Days, #10 CAP Prov:JANETT SILVERMAN 07/09/23 Insulin Glargine (Lantus) 100 Unit/Ml Inj, 15 UNITS SC BID@1000,2200, #10 INJ Prov:ADEOLA OROPEZA MD 10/03/21 Reported Medications Sodium Bicarbonate (Sodium Bicarbonate) 650 Mg Tab, PO 06/30/23 Pot Phosphate Dibasic & Monoba (Neutra-Phos) 1 Tab Tb, PO 06/30/23 Gabapentin (Gabapentin) 300 Mg Cap, 1 CAP PO Q8H 06/30/23 Morphine Sulfate (Morphine Sulfate) 30 Mg Tab, 1 TAB PO TID 06/30/23 Current Medications Current Medications Medications (Trade) Dose Ordered Sig/Kenisha Route PRN Reason Start Time Stop Time Status Last Admin Lactulose 30 ml TID NG 05/12/24 22:00 05/13/24 06:37 Phenylephrine HCl 250 ml @ 30 mls/hr Q8H20M IV 05/13/24 14:15 Sodium Chloride (Saline Lock Ns) 10 ml QSHIFT@10,22 IV 05/13/24 22:00 Norepinephrine Bitartrate 250 ml @ 3.75 mls/hr Q24H IV 05/13/24 18:15 Midazolam HCl 50 ml @ 1 mls/hr Q24H IV 05/13/24 18:30 05/13/24 18:39 DC Midazolam HCl 50 ml @ 1 mls/hr Q24H IV 05/13/24 13:05 Fentanyl Citrate 250 ml @ 2.5 mls/hr Q24H IV 05/13/24 13:05 Family History: Patient reports no known family medical history. Review of Systems Intubated can not obtain due to critical illness H&P Exam Vital Signs/I&O Vital Sign Date Time Temp Pulse Resp B/P (MAP) Pulse Ox O2 Delivery O2 Flow Rate FiO2 05/13/24 18:21 68 22 111/52 (71) 92 50 05/13/24 09:00 97.5 97.5 05/13/24 08:00 Room Air* 0 Intake and Output 05/12/24 05/13/24 18:59 06:59 Intake Total 1030 ml 0 ml Output Total 400 ml 400 ml Balance 630 ml -400 ml Intake Oral 0 ml 0 ml IV Total 1030 ml Output Urine Total 400 ml 400 ml Physical Exam Elderly male Intubated Sedated Jaundice Scleral icterus Slightly distended abdomen with no guarding No ankle edema Junior catheter minimal urinary output Labs/Diagnostic Data Labs/Diagnostic Data Laboratory Tests Test 05/13/24 18:21 05/13/24 16:34 05/13/24 14:10 05/13/24 13:24 Range/Units POC Glucose 101 70-106 mg/dl Blood Gas Specimen Type Arterial Arterial Blood Gas Sample Site Right radial Right radial Blood Gas Patient Temperature 37.0 37.0 Arterial Blood Date Drawn [id number] Arterial Blood pH 7.260 L 7.173 *L 7.350-7.450 Arterial Blood Partial Pressure CO2 56.5 H 70.2 *H 35.0-48.0 mmHg Arterial Blood Partial Pressure O2 67.7 L 229.8 H 83.0-108.0 mmHg Arterial Blood HCO3 24.8 25.2 21.0-28.0 mmol/L Arterial Blood Oxygen Saturation 90.2 L 99.3 H 94.0-98.0 % Arterial Blood Base Excess -2.7 L -3.9 L -2.0-3.0 mmol/L Arterial Blood Oxyhemoglobin 88.2 L 97.5 94.0-98.0 % Arterial Blood Carboxyhemoglobin 1.9 H 1.5 0.5-1.5 % Arterial Blood Methemoglobin 0.3 0.3 0.0-1.5 % Mike Test Modified Modified Blood Gas Total Hemoglobin 10.30 L 9.80 L 13.5-17.5 g/dL Blood Gas Set Respiration Rate 22.0 18.0 Blood Gas Modality Vent - ac Vent - ac FiO2 % 50.0 100.0 Blood Gas Tidal Volume 550.0 550.0 Blood Gas PEEP or CPAP 5.0 5.0 Blood Gas Critical Value Read Back Yes Blood Gas Notified Whom Dave perez md Blood Gas Notified Time [id number] Blood Gas Notified By Behavioral Interventionist t jose Sodium Level 145 136-145 mmol/L Potassium Level 4.3 3.5-5.1 mmol/L Chloride Level 112 H 98-107 mmol/L Carbon Dioxide Level 24 20-31 mmol/L Anion Gap 9 5-15 Blood Urea Nitrogen 24 H 9-23 mg/dL Creatinine 1.41 H 0.700-1.30 mg/dL Glomerular Filtration Rate Calc 56 >90 mL/min BUN/Creatinine Ratio 17.0 10.0-20.0 Serum Glucose 153 H 74-106 mg/dL Calcium Level 9.2 8.7-10.4 mg/dL Magnesium Level 2.2 1.6-2.6 mg/dL Ammonia 82 H 11-32 umol/L Test 05/13/24 13:02 05/13/24 11:27 05/13/24 06:18 05/13/24 05:00 Range/Units POC Glucose 149 H 148 H 108 H 70-106 mg/dl White Blood Count 3.6 #L 4.4-10.8 10^3/uL Red Blood Count 2.79 L 4.5-5.90 10^6/uL Hemoglobin 8.6 L 13.5-17.5 g/dL Hematocrit 29.7 #L 41.0-53.0 % Mean Corpuscular Volume 106.5 #H 80.0-100.0 fL Mean Corpuscular Hemoglobin 31.0 28.0-32.0 pg Mean Corpuscular Hemoglobin Concent 29.1 L 32.0-36.0 g/dL Red Cell Distribution Width 23.0 H 11.8-14.3 % Platelet Count 69 L 140-450 10^3/uL Mean Platelet Volume 9.7 6.9-10.8 fL Neutrophils (%) (Auto) 73.1 37.0-80.0 % Lymphocytes (%) (Auto) 9.0 L 10.0-50.0 % Monocytes (%) (Auto) 14.5 H 0.0-12.0 % Eosinophils (%) (Auto) 3.2 0.0-7.0 % Basophils (%) (Auto) 0.2 0.0-2.0 % Neutrophils # (Auto) 2.6 1.6-8.6 10 ^3/uL Lymphocytes # (Auto) 0.3 L 0.4-5.4 10 ^3/uL Monocytes # (Auto) 0.5 0-1.3 10 ^3/uL Eosinophils # (Auto) 0.1 0-0.8 10 ^3/uL Basophils # (Auto) 0 0-0.2 10 ^3/uL Nucleated Red Blood Cells 0.1 % Platelet Estimate Decreased Clumped Platelets None Sodium Level 147 H 136-145 mmol/L Potassium Level 4.1 3.5-5.1 mmol/L Chloride Level 111 H 98-107 mmol/L Carbon Dioxide Level 28 20-31 mmol/L Anion Gap 8 5-15 Blood Urea Nitrogen 17 9-23 mg/dL Creatinine 1.07 0.700-1.30 mg/dL Glomerular Filtration Rate Calc 78 >90 mL/min BUN/Creatinine Ratio 15.9 10.0-20.0 Serum Glucose 117 H 74-106 mg/dL Calcium Level 9.0 8.7-10.4 mg/dL Magnesium Level 2.0 1.6-2.6 mg/dL Total Bilirubin 10.0 H 0.2-1.0 mg/dL Aspartate Amino Transferase (AST) 93 H 13-40 U/L Alanine Aminotransferase (ALT) 56 H 7-40 U/L Alkaline Phosphatase 269 H 46-116 U/L Ammonia 71 H 11-32 umol/L Total Protein 6.5 5.7-8.2 g/dL Albumin 3.0 L 3.2-4.8 g/dL Test 05/12/24 23:40 05/12/24 19:30 05/12/24 19:09 05/12/24 12:33 Range/Units POC Glucose 88 88 70-106 mg/dl White Blood Count 2.8 L 4.4-10.8 10^3/uL Red Blood Count 2.64 L 4.5-5.90 10^6/uL Hemoglobin 8.2 L 13.5-17.5 g/dL Hematocrit 26.0 L 41.0-53.0 % Mean Corpuscular Volume 98.4 # 80.0-100.0 fL Mean Corpuscular Hemoglobin 31.0 28.0-32.0 pg Mean Corpuscular Hemoglobin Concent 31.5 L 32.0-36.0 g/dL Red Cell Distribution Width 22.2 H 11.8-14.3 % Platelet Count 74 L 140-450 10^3/uL Mean Platelet Volume 9.5 6.9-10.8 fL Neutrophils (%) (Auto) 68.5 37.0-80.0 % Lymphocytes (%) (Auto) 11.6 10.0-50.0 % Monocytes (%) (Auto) 14.2 H 0.0-12.0 % Eosinophils (%) (Auto) 5.1 0.0-7.0 % Basophils (%) (Auto) 0.6 0.0-2.0 % Neutrophils # (Auto) 1.9 1.6-8.6 10 ^3/uL Lymphocytes # (Auto) 0.3 L 0.4-5.4 10 ^3/uL Monocytes # (Auto) 0.4 0-1.3 10 ^3/uL Eosinophils # (Auto) 0.1 0-0.8 10 ^3/uL Basophils # (Auto) 0 0-0.2 10 ^3/uL Nucleated Red Blood Cells 0.5 % Sodium Level 147 H 148 H 136-145 mmol/L Potassium Level 3.6 3.3 L 3.5-5.1 mmol/L Chloride Level 113 H 111 H 98-107 mmol/L Carbon Dioxide Level 28 28 20-31 mmol/L Anion Gap 6 9 5-15 Blood Urea Nitrogen 19 20 9-23 mg/dL Creatinine 1.06 1.14 0.700-1.30 mg/dL Glomerular Filtration Rate Calc 79 73 >90 mL/min BUN/Creatinine Ratio 17.9 17.5 10.0-20.0 Serum Glucose 99 136 H 74-106 mg/dL Calcium Level 8.8 8.7 8.7-10.4 mg/dL Total Bilirubin 8.4 H 0.2-1.0 mg/dL Aspartate Amino Transferase (AST) 95 H 13-40 U/L Alanine Aminotransferase (ALT) 52 H 7-40 U/L Alkaline Phosphatase 242 H 46-116 U/L Ammonia 41 H 11-32 umol/L Total Protein 6.1 5.7-8.2 g/dL Albumin 2.9 L 3.2-4.8 g/dL Test 05/12/24 11:56 05/12/24 06:15 05/12/24 03:21 05/12/24 00:07 Range/Units POC Glucose 125 H 125 H 125 H 70-106 mg/dl White Blood Count 2.9 L 4.4-10.8 10^3/uL Red Blood Count 2.66 L 4.5-5.90 10^6/uL Hemoglobin 8.0 L 13.5-17.5 g/dL Hematocrit 24.7 L 41.0-53.0 % Mean Corpuscular Volume 93.0 80.0-100.0 fL Mean Corpuscular Hemoglobin 30.1 28.0-32.0 pg Mean Corpuscular Hemoglobin Concent 32.4 32.0-36.0 g/dL Red Cell Distribution Width 22.2 H 11.8-14.3 % Platelet Count 75 L 140-450 10^3/uL Mean Platelet Volume 9.8 6.9-10.8 fL Neutrophils (%) (Auto) 68.8 37.0-80.0 % Lymphocytes (%) (Auto) 11.7 10.0-50.0 % Monocytes (%) (Auto) 14.5 H 0.0-12.0 % Eosinophils (%) (Auto) 4.4 0.0-7.0 % Basophils (%) (Auto) 0.6 0.0-2.0 % Neutrophils # (Auto) 2.0 1.6-8.6 10 ^3/uL Lymphocytes # (Auto) 0.3 L 0.4-5.4 10 ^3/uL Monocytes # (Auto) 0.4 0-1.3 10 ^3/uL Eosinophils # (Auto) 0.1 0-0.8 10 ^3/uL Basophils # (Auto) 0 0-0.2 10 ^3/uL Nucleated Red Blood Cells 0.1 % Prothrombin Time 15.1 H 9.3-11.8 sec Prothrombin Time INR 1.48 H 0.9-1.15 Sodium Level 151 H 136-145 mmol/L Potassium Level 3.2 L 3.5-5.1 mmol/L Chloride Level 113 H 98-107 mmol/L Carbon Dioxide Level 31 20-31 mmol/L Anion Gap 7 5-15 Blood Urea Nitrogen 24 H 9-23 mg/dL Creatinine 1.14 0.700-1.30 mg/dL Glomerular Filtration Rate Calc 73 >90 mL/min BUN/Creatinine Ratio 21.1 H 10.0-20.0 Serum Glucose 128 H 74-106 mg/dL Calcium Level 8.9 8.7-10.4 mg/dL Phosphorus Level 2.1 L 2.4-5.1 mg/dL Magnesium Level 1.8 1.6-2.6 mg/dL Total Bilirubin 7.8 H 0.2-1.0 mg/dL Aspartate Amino Transferase (AST) 86 H 13-40 U/L Alanine Aminotransferase (ALT) 53 H 7-40 U/L Alkaline Phosphatase 237 H 46-116 U/L Ammonia 30 11-32 umol/L Total Protein 6.0 5.7-8.2 g/dL Albumin 2.9 L 3.2-4.8 g/dL Test 05/11/24 18:27 05/11/24 18:00 05/11/24 11:59 05/11/24 05:38 Range/Units White Blood Count 2.9 L 4.4-10.8 10^3/uL Red Blood Count 2.56 L 4.5-5.90 10^6/uL Hemoglobin 7.7 L 13.5-17.5 g/dL Hematocrit 24.7 L 41.0-53.0 % Mean Corpuscular Volume 96.7 80.0-100.0 fL Mean Corpuscular Hemoglobin 30.2 28.0-32.0 pg Mean Corpuscular Hemoglobin Concent 31.2 L 32.0-36.0 g/dL Red Cell Distribution Width 22.4 H 11.8-14.3 % Platelet Count 70 L 140-450 10^3/uL Mean Platelet Volume 9.7 6.9-10.8 fL Neutrophils (%) (Auto) 73.8 37.0-80.0 % Lymphocytes (%) (Auto) 9.3 L 10.0-50.0 % Monocytes (%) (Auto) 12.8 H 0.0-12.0 % Eosinophils (%) (Auto) 3.9 0.0-7.0 % Basophils (%) (Auto) 0.2 0.0-2.0 % Neutrophils # (Auto) 2.1 1.6-8.6 10 ^3/uL Lymphocytes # (Auto) 0.3 L 0.4-5.4 10 ^3/uL Monocytes # (Auto) 0.4 0-1.3 10 ^3/uL Eosinophils # (Auto) 0.1 0-0.8 10 ^3/uL Basophils # (Auto) 0 0-0.2 10 ^3/uL Nucleated Red Blood Cells 0.1 % POC Glucose 117 H 113 H 116 H 70-106 mg/dl Test 05/11/24 03:10 05/10/24 23:51 05/10/24 18:24 05/10/24 12:03 Range/Units White Blood Count 3.6 L 4.4-10.8 10^3/uL Red Blood Count 2.49 L 4.5-5.90 10^6/uL Hemoglobin 7.6 L 13.5-17.5 g/dL Hematocrit 23.4 L 41.0-53.0 % Mean Corpuscular Volume 94.2 80.0-100.0 fL Mean Corpuscular Hemoglobin 30.6 28.0-32.0 pg Mean Corpuscular Hemoglobin Concent 32.5 32.0-36.0 g/dL Red Cell Distribution Width 21.3 H 11.8-14.3 % Platelet Count 72 L 140-450 10^3/uL Mean Platelet Volume 9.4 6.9-10.8 fL Neutrophils (%) (Auto) 76.9 37.0-80.0 % Lymphocytes (%) (Auto) 8.2 L 10.0-50.0 % Monocytes (%) (Auto) 11.8 0.0-12.0 % Eosinophils (%) (Auto) 2.9 0.0-7.0 % Basophils (%) (Auto) 0.2 0.0-2.0 % Neutrophils # (Auto) 2.8 1.6-8.6 10 ^3/uL Lymphocytes # (Auto) 0.3 L 0.4-5.4 10 ^3/uL Monocytes # (Auto) 0.4 0-1.3 10 ^3/uL Eosinophils # (Auto) 0.1 0-0.8 10 ^3/uL Basophils # (Auto) 0 0-0.2 10 ^3/uL Nucleated Red Blood Cells 0.2 % Prothrombin Time 15.3 H 9.3-11.8 sec Prothrombin Time INR 1.50 H 0.9-1.15 Sodium Level 155 H 136-145 mmol/L Potassium Level 3.5 3.5-5.1 mmol/L Chloride Level 117 H 98-107 mmol/L Carbon Dioxide Level 32 H 20-31 mmol/L Anion Gap 6 5-15 Blood Urea Nitrogen 28 H 9-23 mg/dL Creatinine 1.36 H 0.700-1.30 mg/dL Glomerular Filtration Rate Calc 59 >90 mL/min BUN/Creatinine Ratio 20.6 H 10.0-20.0 Serum Glucose 118 H 74-106 mg/dL Calcium Level 9.2 8.7-10.4 mg/dL Phosphorus Level 1.8 L 2.4-5.1 mg/dL Magnesium Level 2.1 1.6-2.6 mg/dL Total Bilirubin 7.6 H 0.2-1.0 mg/dL Aspartate Amino Transferase (AST) 81 H 13-40 U/L Alanine Aminotransferase (ALT) 54 H 7-40 U/L Alkaline Phosphatase 237 H 46-116 U/L Ammonia 16 11-32 umol/L B-Type Natriuretic Peptide 360.94 0-100 pg/mL Total Protein 5.9 5.7-8.2 g/dL Albumin 2.8 L 3.2-4.8 g/dL Triglycerides Level 101 < 150 mg/dL POC Glucose 104 81 97 70-106 mg/dl Test 05/10/24 06:24 05/10/24 03:00 05/09/24 21:56 05/09/24 18:32 Range/Units POC Glucose 88 112 H 132 H 70-106 mg/dl White Blood Count 4.4 4.4-10.8 10^3/uL Red Blood Count 2.59 L 4.5-5.90 10^6/uL Hemoglobin 7.8 L 13.5-17.5 g/dL Hematocrit 24.5 L 41.0-53.0 % Mean Corpuscular Volume 94.4 80.0-100.0 fL Mean Corpuscular Hemoglobin 30.2 28.0-32.0 pg Mean Corpuscular Hemoglobin Concent 32.0 32.0-36.0 g/dL Red Cell Distribution Width 20.1 H 11.8-14.3 % Platelet Count 72 L 140-450 10^3/uL Mean Platelet Volume 9.6 6.9-10.8 fL Neutrophils (%) (Auto) 80.1 H 37.0-80.0 % Lymphocytes (%) (Auto) 6.3 L 10.0-50.0 % Monocytes (%) (Auto) 11.5 0.0-12.0 % Eosinophils (%) (Auto) 1.7 0.0-7.0 % Basophils (%) (Auto) 0.4 0.0-2.0 % Neutrophils # (Auto) 3.6 1.6-8.6 10 ^3/uL Lymphocytes # (Auto) 0.3 L 0.4-5.4 10 ^3/uL Monocytes # (Auto) 0.5 0-1.3 10 ^3/uL Eosinophils # (Auto) 0.1 0-0.8 10 ^3/uL Basophils # (Auto) 0 0-0.2 10 ^3/uL Nucleated Red Blood Cells 0.1 % Prothrombin Time 15.6 H 9.3-11.8 sec Prothrombin Time INR 1.54 H 0.9-1.15 Sodium Level 154 #H 136-145 mmol/L Potassium Level 4.1 3.5-5.1 mmol/L Chloride Level 116 H 98-107 mmol/L Carbon Dioxide Level 31 20-31 mmol/L Anion Gap 7 5-15 Blood Urea Nitrogen 29 H 9-23 mg/dL Creatinine 1.34 H 0.700-1.30 mg/dL Glomerular Filtration Rate Calc 60 >90 mL/min BUN/Creatinine Ratio 21.6 H 10.0-20.0 Serum Glucose 109 H 74-106 mg/dL Calcium Level 9.6 8.7-10.4 mg/dL Phosphorus Level 3.3 2.4-5.1 mg/dL Magnesium Level 2.1 1.6-2.6 mg/dL Total Bilirubin 7.0 H 0.2-1.0 mg/dL Aspartate Amino Transferase (AST) 80 H 13-40 U/L Alanine Aminotransferase (ALT) 55 H 7-40 U/L Alkaline Phosphatase 245 H 46-116 U/L Ammonia 41 H 11-32 umol/L Total Protein 6.1 5.7-8.2 g/dL Albumin 2.9 L 3.2-4.8 g/dL Test 05/09/24 17:03 05/09/24 16:25 05/09/24 12:12 05/09/24 11:00 Range/Units White Blood Count 3.6 L 4.4-10.8 10^3/uL Red Blood Count 2.55 L 4.5-5.90 10^6/uL Hemoglobin 7.7 L 13.5-17.5 g/dL Hematocrit 23.5 L 41.0-53.0 % Mean Corpuscular Volume 92.2 80.0-100.0 fL Mean Corpuscular Hemoglobin 30.1 28.0-32.0 pg Mean Corpuscular Hemoglobin Concent 32.7 32.0-36.0 g/dL Red Cell Distribution Width 19.7 H 11.8-14.3 % Platelet Count 65 L 140-450 10^3/uL Mean Platelet Volume 9.5 6.9-10.8 fL Neutrophils (%) (Auto) 82.5 H 37.0-80.0 % Lymphocytes (%) (Auto) 5.3 L 10.0-50.0 % Monocytes (%) (Auto) 11.0 0.0-12.0 % Eosinophils (%) (Auto) 1.1 0.0-7.0 % Basophils (%) (Auto) 0.1 0.0-2.0 % Neutrophils # (Auto) 2.9 1.6-8.6 10 ^3/uL Lymphocytes # (Auto) 0.2 L 0.4-5.4 10 ^3/uL Monocytes # (Auto) 0.4 0-1.3 10 ^3/uL Eosinophils # (Auto) 0 0-0.8 10 ^3/uL Basophils # (Auto) 0 0-0.2 10 ^3/uL Nucleated Red Blood Cells 0.1 % Stool Occult Blood Positive Negative Stool Occult Blood Sample #3 Negative Magnesium Level 2.1 1.6-2.6 mg/dL Ammonia < 10 L 11-32 umol/L Blood Gas Specimen Type Arterial Blood Gas Sample Site Right radial Blood Gas Patient Temperature 37.0 Arterial Blood Date Drawn [id number] Arterial Blood pH 7.447 7.350-7.450 Arterial Blood Partial Pressure CO2 34.6 L 35.0-48.0 mmHg Arterial Blood Partial Pressure O2 65.5 L 83.0-108.0 mmHg Arterial Blood HCO3 23.3 21.0-28.0 mmol/L Arterial Blood Oxygen Saturation 92.5 L 94.0-98.0 % Arterial Blood Base Excess -0.5 -2.0-3.0 mmol/L Arterial Blood Oxyhemoglobin 91.2 L 94.0-98.0 % Arterial Blood Carboxyhemoglobin 1.3 0.5-1.5 % Arterial Blood Methemoglobin 0.1 0.0-1.5 % Mike Test Yes Blood Gas Total Hemoglobin 8.30 L 13.5-17.5 g/dL Blood Gas Modality Room air FiO2 % 21.0 Test 05/09/24 07:00 05/09/24 03:28 05/08/24 22:18 05/08/24 17:08 Range/Units POC Glucose 123 H 104 98 70-106 mg/dl White Blood Count 3.6 L 4.4-10.8 10^3/uL Red Blood Count 2.79 L 4.5-5.90 10^6/uL Hemoglobin 8.2 L 13.5-17.5 g/dL Hematocrit 25.9 L 41.0-53.0 % Mean Corpuscular Volume 92.8 80.0-100.0 fL Mean Corpuscular Hemoglobin 29.5 28.0-32.0 pg Mean Corpuscular Hemoglobin Concent 31.7 L 32.0-36.0 g/dL Red Cell Distribution Width 19.6 H 11.8-14.3 % Platelet Count 78 L 140-450 10^3/uL Mean Platelet Volume 10.4 6.9-10.8 fL Neutrophils (%) (Auto) 80.4 H 37.0-80.0 % Lymphocytes (%) (Auto) 6.3 L 10.0-50.0 % Monocytes (%) (Auto) 6.7 0.0-12.0 % Eosinophils (%) (Auto) 6.3 0.0-7.0 % Basophils (%) (Auto) 0.3 0.0-2.0 % Neutrophils # (Auto) 2.9 1.6-8.6 10 ^3/uL Lymphocytes # (Auto) 0.2 L 0.4-5.4 10 ^3/uL Monocytes # (Auto) 0.2 0-1.3 10 ^3/uL Eosinophils # (Auto) 0.2 0-0.8 10 ^3/uL Basophils # (Auto) 0 0-0.2 10 ^3/uL Nucleated Red Blood Cells 0.1 % Sodium Level 149 H 136-145 mmol/L Potassium Level 3.9 3.5-5.1 mmol/L Chloride Level 113 H 98-107 mmol/L Carbon Dioxide Level 27 20-31 mmol/L Anion Gap 9 5-15 Blood Urea Nitrogen 28 H 9-23 mg/dL Creatinine 1.25 0.700-1.30 mg/dL Glomerular Filtration Rate Calc 65 >90 mL/min BUN/Creatinine Ratio 22.4 H 10.0-20.0 Serum Glucose 125 H 74-106 mg/dL Calcium Level 9.0 8.7-10.4 mg/dL Total Bilirubin 5.9 H 0.2-1.0 mg/dL Aspartate Amino Transferase (AST) 84 H 13-40 U/L Alanine Aminotransferase (ALT) 59 H 7-40 U/L Alkaline Phosphatase 263 H 46-116 U/L Total Protein 6.1 5.7-8.2 g/dL Albumin 2.9 L 3.2-4.8 g/dL Test 05/08/24 12:09 05/08/24 08:45 05/08/24 08:27 05/08/24 05:40 Range/Units POC Glucose 88 100 70-106 mg/dl White Blood Count 4.0 #L 4.4-10.8 10^3/uL Red Blood Count 2.86 L 4.5-5.90 10^6/uL Hemoglobin 8.8 L 13.5-17.5 g/dL Hematocrit 27.0 L 41.0-53.0 % Mean Corpuscular Volume 94.5 80.0-100.0 fL Mean Corpuscular Hemoglobin 30.7 28.0-32.0 pg Mean Corpuscular Hemoglobin Concent 32.5 32.0-36.0 g/dL Red Cell Distribution Width 19.5 H 11.8-14.3 % Platelet Count 81 L 140-450 10^3/uL Mean Platelet Volume 9.8 6.9-10.8 fL Neutrophils (%) (Auto) 77.1 37.0-80.0 % Lymphocytes (%) (Auto) 8.7 L 10.0-50.0 % Monocytes (%) (Auto) 12.0 0.0-12.0 % Eosinophils (%) (Auto) 2.0 0.0-7.0 % Basophils (%) (Auto) 0.2 0.0-2.0 % Neutrophils # (Auto) 3.1 1.6-8.6 10 ^3/uL Lymphocytes # (Auto) 0.3 L 0.4-5.4 10 ^3/uL Monocytes # (Auto) 0.5 0-1.3 10 ^3/uL Eosinophils # (Auto) 0.1 0-0.8 10 ^3/uL Basophils # (Auto) 0 0-0.2 10 ^3/uL Nucleated Red Blood Cells 0.4 % Sodium Level 148 #H 136-145 mmol/L Potassium Level 3.8 3.5-5.1 mmol/L Chloride Level 113 H 98-107 mmol/L Carbon Dioxide Level 20-31 mmol/L Anion Gap 9 5-15 Blood Urea Nitrogen 27 H 9-23 mg/dL Creatinine 0.700-1.30 mg/dL Glomerular Filtration Rate Calc 53 >90 mL/min BUN/Creatinine Ratio 18.2 10.0-20.0 Serum Glucose 100 74-106 mg/dL Calcium Level 9.0 8.7-10.4 mg/dL Magnesium Level 2.1 1.6-2.6 mg/dL Total Bilirubin 0.2-1.0 mg/dL Aspartate Amino Transferase (AST) 13-40 U/L Alanine Aminotransferase (ALT) 63 H 7-40 U/L Alkaline Phosphatase 46-116 U/L Total Protein 6.4 5.7-8.2 g/dL Albumin 2.9 L 3.2-4.8 g/dL Thyroid Stimulating Hormone (TSH) 0.59 0.55-4.78 uIU/mL Blood Gas Specimen Type Arterial Blood Gas Sample Site Right radial Blood Gas Patient Temperature 37.0 Arterial Blood Date Drawn [id number] Arterial Blood pH 7.388 7.350-7.450 Arterial Blood Partial Pressure CO2 42.6 35.0-48.0 mmHg Arterial Blood Partial Pressure O2 60.2 L 83.0-108.0 mmHg Arterial Blood HCO3 25.1 21.0-28.0 mmol/L Arterial Blood Oxygen Saturation 90.1 L 94.0-98.0 % Arterial Blood Base Excess 0.0 -2.0-3.0 mmol/L Arterial Blood Oxyhemoglobin 88.5 L 94.0-98.0 % Arterial Blood Carboxyhemoglobin 1.5 0.5-1.5 % Arterial Blood Methemoglobin 0.3 0.0-1.5 % Mike Test Yes Blood Gas Total Hemoglobin 9.60 L 13.5-17.5 g/dL Blood Gas Liter Flow 40.00 Blood Gas Modality High flow FiO2 % 35.0 Test 05/08/24 01:59 05/07/24 22:05 05/07/24 18:53 05/07/24 17:02 Range/Units POC Glucose 95 104 113 H 70-106 mg/dl Blood Gas Specimen Type Arterial Blood Gas Sample Site Left radial Blood Gas Patient Temperature 37.0 Arterial Blood Date Drawn [id number] Arterial Blood pH 7.280 L 7.350-7.450 Arterial Blood Partial Pressure CO2 54.6 H 35.0-48.0 mmHg Arterial Blood Partial Pressure O2 72.8 L 83.0-108.0 mmHg Arterial Blood HCO3 25.1 21.0-28.0 mmol/L Arterial Blood Oxygen Saturation 93.4 L 94.0-98.0 % Arterial Blood Base Excess -2.1 L -2.0-3.0 mmol/L Arterial Blood Oxyhemoglobin 91.4 L 94.0-98.0 % Arterial Blood Carboxyhemoglobin 1.5 0.5-1.5 % Arterial Blood Methemoglobin 0.6 0.0-1.5 % Mike Test Modified Blood Gas Total Hemoglobin 10.50 L 13.5-17.5 g/dL Blood Gas Liter Flow 55.00 Blood Gas Modality High flow FiO2 % 55.0 Test 05/07/24 13:48 05/07/24 11:58 05/07/24 08:12 05/07/24 06:51 Range/Units Blood Gas Specimen Type Arterial Blood Gas Sample Site Right brachial Blood Gas Patient Temperature 37.0 Arterial Blood Date Drawn [id number] Arterial Blood pH 7.119 *L 7.350-7.450 Arterial Blood Partial Pressure CO2 65.3 *H 35.0-48.0 mmHg Arterial Blood Partial Pressure O2 91.8 83.0-108.0 mmHg Arterial Blood HCO3 20.7 L 21.0-28.0 mmol/L Arterial Blood Oxygen Saturation 95.6 94.0-98.0 % Arterial Blood Base Excess -9.1 L -2.0-3.0 mmol/L Arterial Blood Oxyhemoglobin 93.3 L 94.0-98.0 % Arterial Blood Carboxyhemoglobin 1.8 H 0.5-1.5 % Arterial Blood Methemoglobin 0.6 0.0-1.5 % Mike Test N/a Blood Gas Total Hemoglobin 11.10 L 13.5-17.5 g/dL Blood Gas Liter Flow 6.00 Blood Gas Modality Mask - simple FiO2 % 45.0 Blood Gas Critical Value Read Back Yes Blood Gas Notified Whom breanna Pearson md Blood Gas Notified Time [id number] Blood Gas Notified By Behavioral Interventionist maritza frost POC Glucose 104 104 64 L 70-106 mg/dl Test 05/07/24 02:55 05/07/24 01:30 05/07/24 00:47 05/06/24 21:02 Range/Units White Blood Count 6.3 4.4-10.8 10^3/uL Red Blood Count 3.15 L 4.5-5.90 10^6/uL Hemoglobin 9.7 L 13.5-17.5 g/dL Hematocrit 30.0 L 41.0-53.0 % Mean Corpuscular Volume 95.5 80.0-100.0 fL Mean Corpuscular Hemoglobin 30.9 28.0-32.0 pg Mean Corpuscular Hemoglobin Concent 32.3 32.0-36.0 g/dL Red Cell Distribution Width 20.0 H 11.8-14.3 % Platelet Count 110 L 140-450 10^3/uL Mean Platelet Volume 10.0 6.9-10.8 fL Neutrophils (%) (Auto) 73.9 37.0-80.0 % Lymphocytes (%) (Auto) 10.2 10.0-50.0 % Monocytes (%) (Auto) 13.0 H 0.0-12.0 % Eosinophils (%) (Auto) 2.6 0.0-7.0 % Basophils (%) (Auto) 0.3 0.0-2.0 % Neutrophils # (Auto) 4.7 1.6-8.6 10 ^3/uL Lymphocytes # (Auto) 0.6 0.4-5.4 10 ^3/uL Monocytes # (Auto) 0.8 0-1.3 10 ^3/uL Eosinophils # (Auto) 0.2 0-0.8 10 ^3/uL Basophils # (Auto) 0 0-0.2 10 ^3/uL Nucleated Red Blood Cells 0.1 % Sodium Level 142 136-145 mmol/L Potassium Level 4.7 3.5-5.1 mmol/L Chloride Level 113 H 98-107 mmol/L Carbon Dioxide Level 22 20-31 mmol/L Anion Gap 7 5-15 Blood Urea Nitrogen 23 9-23 mg/dL Creatinine 1.66 H 0.700-1.30 mg/dL Glomerular Filtration Rate Calc 46 >90 mL/min BUN/Creatinine Ratio 13.9 10.0-20.0 Serum Glucose 77 74-106 mg/dL Calcium Level 9.5 8.7-10.4 mg/dL Total Bilirubin 4.7 H 0.2-1.0 mg/dL Aspartate Amino Transferase (AST) 138 H 13-40 U/L Alanine Aminotransferase (ALT) 70 H 7-40 U/L Alkaline Phosphatase 276 H 46-116 U/L Ammonia 84 H 11-32 umol/L B-Type Natriuretic Peptide 504.68 0-100 pg/mL Total Protein 6.9 5.7-8.2 g/dL Albumin 3.3 3.2-4.8 g/dL Urine Color Dark-yellow Yellow Urine Clarity Turbid H Clear Urine pH 5.5 5.0-9.0 Urine Specific [place] 1.015 1.001-1.035 Urine Protein 2+ H Negative Urine Ketones Negative Negative Urine Blood 2+ H Negative /uL Urine Nitrite Negative Negative Urine Bilirubin 1+ Negative Urine Urobilinogen 2 H Negative mg/dL Urine Leukocyte Esterase 3+ Negative /uL Urine RBC 8 0 - 3 /hpf Urine Microscopic WBC 193 H 0-3 /HPF Urine Squamous Epithelial Cells Few <5 /hpf Urine Bacteria Mod H None Seen /hpf Urine Hyaline Casts Few 0 - 2 /lpf Urine Mucus Few None Seen Urine Glucose Normal Normal mg/dL Urine Opiates Screen Pos NEGATIVE Urine Fentanyl Screen Neg NEGATIVE Urine Barbiturates Screen Neg NEGATIVE Urine Phencyclidine Screen Neg NEGATIVE Urine Amphetamines Screen Pos NEGATIVE Urine Benzodiazepines Screen Neg NEGATIVE Urine Cocaine Screen Neg NEGATIVE Urine Cannabinoids Screen Neg NEGATIVE POC Glucose 74 70-106 mg/dl Troponin I High Sensitivity 454 *H </=54 ng/L Test 05/06/24 19:33 05/06/24 18:58 05/06/24 17:20 Range/Units POC Glucose 107 H 70-106 mg/dl Troponin I High Sensitivity 548 *H 450 *H </=54 ng/L White Blood Count 5.4 4.4-10.8 10^3/uL Red Blood Count 3.27 L 4.5-5.90 10^6/uL Hemoglobin 9.7 L 13.5-17.5 g/dL Hematocrit 32.2 L 41.0-53.0 % Mean Corpuscular Volume 98.5 80.0-100.0 fL Mean Corpuscular Hemoglobin 29.8 28.0-32.0 pg Mean Corpuscular Hemoglobin Concent 30.2 L 32.0-36.0 g/dL Red Cell Distribution Width 20.5 H 11.8-14.3 % Platelet Count 88 L 140-450 10^3/uL Mean Platelet Volume 10.1 6.9-10.8 fL Neutrophils (%) (Auto) 83.6 H 37.0-80.0 % Lymphocytes (%) (Auto) 5.9 L 10.0-50.0 % Monocytes (%) (Auto) 10.1 0.0-12.0 % Eosinophils (%) (Auto) 0.2 0.0-7.0 % Basophils (%) (Auto) 0.2 0.0-2.0 % Neutrophils # (Auto) 4.5 1.6-8.6 10 ^3/uL Lymphocytes # (Auto) 0.3 L 0.4-5.4 10 ^3/uL Monocytes # (Auto) 0.5 0-1.3 10 ^3/uL Eosinophils # (Auto) 0 0-0.8 10 ^3/uL Basophils # (Auto) 0 0-0.2 10 ^3/uL Nucleated Red Blood Cells 0.3 % Sodium Level 141 136-145 mmol/L Potassium Level 4.9 3.5-5.1 mmol/L Chloride Level 112 H 98-107 mmol/L Carbon Dioxide Level 20 20-31 mmol/L Anion Gap 9 5-15 Blood Urea Nitrogen 23 9-23 mg/dL Creatinine 1.73 H 0.700-1.30 mg/dL Glomerular Filtration Rate Calc 44 >90 mL/min BUN/Creatinine Ratio 13.3 10.0-20.0 Serum Glucose 112 H 74-106 mg/dL Calcium Level 9.3 8.7-10.4 mg/dL Total Bilirubin 6.0 H 0.2-1.0 mg/dL Aspartate Amino Transferase (AST) 105 H 13-40 U/L Alanine Aminotransferase (ALT) 65 H 7-40 U/L Alkaline Phosphatase 287 H 46-116 U/L Total Protein 6.8 5.7-8.2 g/dL Albumin 3.3 3.2-4.8 g/dL Plasma/Serum Blood Alcohol < 3.0 <10 mg/dL Microbiology Date/Time Source Procedure Growth Status 05/08/24 23:41 Nose MRSA Screen - Final Complete 05/08/24 08:45 Blood Blood Culture - Final NO GROWTH AFTER 5 DAYS OF INCUBATION. Complete 05/07/24 01:30 Voided Urine Urine Culture - Final Klebsiella pneumoniae - ESBL Complete Assessment Acute kidney injury hemodynamically mediated in the setting of hypotension and shock Acute respiratory failure in the setting of aspiration pneumonia Hepatic encephalopathy Decompensated liver cirrhosis \ Acute methamphetamine intoxication Hepatitis-C Multidrug resistant ESBL urinary tract infection Aspiration pneumonia Currently on Levophed maintain mean arterial pressure greater than 65 IV albumin x1 Patient planned for CTA of the head and neck I recommend starting IV fluids at this time due to moderate risk of contrast induced kidney disease. Continue broad-spectrum antibiotics and cultures Renal dose medications Guarded prognosis due to significant comorbidities. Critical care time spent 70 minutes Plan discussed with: Other PIETRO VILLEDA MD May 13, 2024 18:56
[2024-05-13] MEDS ORDERED: SODIUM CHLORIDE 0.9% 1,000 ML IV SCH (19:00)
--- NOTE | 2024-05-13 19:05 | RESUS ---
CODE ASSIST ASSESSSMENT Initial Information Code Assist Date: May 13, 2024 Code Assist Time: 13:05 Location of Arrest: [facility] Room [facility] [address] Orellana Res[address] Dr Mcintosh Resident Dr Coulter Time Notified: 13:05 Crash Cart Opened and Supplies: Yes Situation Staff concerned/worried, speci: SaO2 <90, Non-responsive, RR <8, Change LOC Situation comment: Per primary RN, she was called to bedside by sitter CLINICAL TRIAL EDUCATOR who witnessed possible tube feedings coming out of oral cavity. Per RN, she immediately stopped ordered feedings. Patient was unresponsive to painful stimuli, agonal respirations with accessory muscle use noted upon Rapid Response Assessment. Spo2 with steady decline into 70%. Dr Orellana at bedside with nursing staff and residents. Verbal order received for oral intubation and transfer to ICU Assessment Temperature (Fahrenheit): 97.5 Blood Pressure Systolic: 116 (5) Blood Pressure Diastolic: 55 Respiratory Rate: 8 O2 Sat by Pulse Oximetry: 79 Recommendations/Interventions Procedures: CXR Portable, CMP, CBC, Troponin, Cardiac Monitoring, Intubated, Bag Mask Other Interventions patient was intubated by Dr Coulter with ETT 8.0 24 at the lip at approzimately 1307 sedation medication used for intubation available in emar. Outcome Outcome: Transfer to ICU Lyndsey Swan May 13, 2024 19:05
[2024-05-13] MEDS: LIDOCAINE 1% (LOCAL ANESTH.) PF 5ml SDV ID ONE (19:29)
--- NOTE | 2024-05-13 19:51 | DVH ---
INDICATION: R/o Left carotid fistula s/p central line attempt COMPARISON: None TECHNIQUE:CTA head and neck with intravenous contrast. 3D/MIP image postprocessing was performed and images were used for interpretation and reporting. Radiation Dose Information: CT Dose: CTDI volume is 31.45 mGy. Dose-length product is 1371.14 mGy*cm FINDINGS: CTA neck: The aortic arch is outside the field of view. The proximal major aortic vessels are outside the field of view. Bilateral subclavian arteries are unremarkable. Bilateral common carotid arteries unremarkable. The fistulous connection noted on ultrasound between the distal left common carotid artery and internal jugular vein is not definitely visualized. No con trast extravasation is noted. Bilateral cervical ICAs unremarkable. Bilateral vertebral arteries are unremarkable and codominant. CTA HEAD: Bilateral ACAS, anterior communicating artery, bilateral MCAs and bilateral intracranial ICAs are unr emarkable. Bilateral field servicer, bilateral superior cerebellar arteries, basilar artery and bilateral intracranial ashley tebral arteries are unremarkable. The dural venous sinuses opacify normally. No abnormal intracranial enhancement. Endotracheal and enteric tubes are partially visualized. Secretions are noted over the glottis and hayes bglottic region. The thyroid gland is unremarkable. Mucoperiosteal thickening of the ethmoid, maxillary and sphenoid s inuses with mucous retention cyst within the left sphenoid sinus. Bilateral mastoids are clear. Biapical mild emphysematous changes with patchy ground-glass opacities of the right lung apex which m ay be due to infectious / inflammatory process. IMPRESSION: No hemodynamically significant stenosis, aneurysm or dissection involving the major intracranial and neck vessels. The suggested fistulous connection noted on ultrasound between the distal left common carotid artery and left internal jugular vein is not definitely visualized. No contrast extravasation is noted.
--- NOTE | 2024-05-13 20:01 | DVHNC2 ---
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) Indication: Hypotension Room prepared for procedure: Yes Computer Forensic Examiner performed hand hygien: Yes Maximal sterile barrier precau: Mask/Eye shield, Sterile gown, Cap, Sterlie gloves, Large sterlie drape Skin Preparation: Chlorhexidine gluconate, Providine iodine Insertion site: Left, Internal jugular Informed consent obtained: Yes (from family) Notes Following a strict sterlisation method and after confirming the position of the left IJV, a needle was introduced into the left IJV under ultrasound guidance and the needle tip was viewed with US in the IJV, following which a guide wire was introduced. We were not able to confirm the position of the guidewire and the procedure was abandoned as we felt that the wire was going into the common carotid artery. Following the procedure pressure was held over the area for over 30 mins. Carotid doppler was performed which showed a possibilty of a fistula. CTA head and neck was performed to confirmed which showed no hemodynamically significant stenosis, aneurysm or dissection involving the major intracranial and neck vessels, The suggested fistulous connection noted on ultrasound between the distal left common carotid artery and left internal jugular vein is not definitely visualized. No contrast extravasation is noted. Patient was stable and did not have any hypotension while being on the same dose of pressors as before the procedure, no bruit was auscultated and no hematoma or bruising was seen. Date of Service: May 13, 2024 Billing Provider: LUIS ALFREDO CARLISLE MD Common Visit Codes: PROCEDURE ONLY Procedure Codes: [id number] NON-TUNNEL CV CATH TIERRA GALEAS RESIDENT May 13, 2024 20:01 LUIS ALFREDO CARLISLE MD May 22, 2024 22:34
[2024-05-13 21:43] LABS: Basophils # (auto) 0 10 ^3/uL (0-0.2); Basophils % (auto) 0.2 % (0.0-2.0); Eosinophils # (auto) 0 10 ^3/uL (0-0.8); Eosinophils % (auto) 0.2 % (0.0-7.0); Hematocrit 29.4 % (41.0-53.0); Hemoglobin 9.3 g/dL (13.5-17.5); Lymphocytes # (auto) 0.2 10 ^3/uL (0.4-5.4); Lymphocytes % (auto) 3.9 % (10.0-50.0); Mean Corpuscular Hemoglobin 30.4 pg (28.0-32.0); Mean Corpuscular Hgb Conc. 31.6 g/dL (32.0-36.0); Mean Corpuscular Volume 96.1 fL (80.0-100.0); Monocytes # (auto) 0.7 10 ^3/uL (0-1.3); Monocytes % (auto) 10.9 % (0.0-12.0); Neutrophils # (auto) 5.1 10 ^3/uL (1.6-8.6); Neutrophils % (auto) 84.8 % (37.0-80.0); Nucleated Red Blood Cells % 0.4 %; Platelet Count (auto) 109 10^3/uL (140-450); Red Blood Cells 3.05 10^6/uL (4.5-5.90)
[2024-05-13 21:44] LABS: Lactic Acid w/Reflex 2.4 mmol/L (0.4-2.0)
[2024-05-13] MEDS: SOD CHL 0.45% 1,000 ML IV SCH (21:55)
--- NOTE | 2024-05-13 22:30 | DVHPN2 ---
Progress Note - Dictate Date Seen: May 13, 2024 Medical Necessity Reason Pt with a Central, PICC or Fol: Yes The following are medically ne: Mcduffie Catheter Reason for mcduffie catheter: Strict I&O Subjective Patient is slightly more alert and arousable today Patient has been downgraded to the floor Ammonia level is back up to 41 Persistent mod elevation in liver enzymes vital signs Vital Sign Date Time Temp Pulse Resp B/P (MAP) Pulse Ox O2 Delivery O2 Flow Rate FiO2 05/13/24 22:10 64 22 121/56 (77) 94 65 05/13/24 09:00 97.5 97.5 05/13/24 08:00 Room Air* 0 Total Intake and Output 05/12/24 05/12/24 05/13/24 15:00 23:00 07:00 Intake Total 839 ml 75 ml 0 ml Output Total 400 ml 400 ml Balance 839 ml -325 ml -400 ml medications Current Medications Medications Dose Ordered Sig/Kenisha Route Start Time Stop Time Status Last Admin Dose Admin Sodium Chloride 10 ml Q8HR IV 05/07/24 06:00 05/13/24 21:55 10 ML Ondansetron HCl 4 mg Q4HP PRN IV 05/06/24 22:15 Docusate Sodium 100 mg BIDPRN PRN PO 05/06/24 22:15 Pantoprazole Sodium 40 mg BID IV 05/08/24 22:00 05/13/24 21:56 40 MG Rifaximin 550 mg BID PO 05/09/24 22:00 05/13/24 21:50 550 MG Ertapenem 1 gm/ Sodium Chloride 50 ml @ 100 mls/hr DAILY IV 05/10/24 10:00 05/13/24 10:39 100 MLS/HR Methadone HCl 10 mg Q8HR PO 05/09/24 22:00 05/13/24 21:51 10 MG Thiamine HCl 100 mg DAILY IV 05/10/24 10:00 05/13/24 10:39 100 MG Flecainide Acetate 100 mg Q12HR PO 05/09/24 22:00 05/13/24 21:54 100 MG Folic Acid 1 mg DAILY PO 05/11/24 10:00 05/13/24 10:39 1 MG Diagnostic Test (Pha) 1 strip Q6HR 05/10/24 18:00 05/13/24 18:26 1 STRIP Insulin Human Regular FOLLOW SLIDING SCALE Q6HR SC 05/10/24 18:00 05/13/24 11:38 2 UNITS Dextrose 50 ml UD IV 05/10/24 17:15 Haloperidol Lactate 5 mg Q8HP PRN IM 05/10/24 19:15 05/12/24 12:42 5 MG Albuterol 2.5 mg Q6HPRN PRN NEB 05/11/24 06:30 05/12/24 08:23 2.5 MG Ipratropium [place] 0.5 mg Q6HPRN PRN NEB 05/11/24 06:30 05/12/24 08:23 0.5 MG Enteral Nutritional Formula 1,000 ml 30ML/HR GT 05/12/24 12:45 05/13/24 01:23 1,000 ML Lactulose 30 ml TID NG 05/12/24 22:00 05/13/24 21:54 30 ML Phenylephrine HCl 250 ml @ 30 mls/hr Q8H20M IV 05/13/24 14:15 05/13/24 14:15 30 MLS/HR Sodium Chloride 10 ml QSHIFT@10,22 IV 05/13/24 22:00 Norepinephrine Bitartrate 250 ml @ 3.75 mls/hr Q24H IV 05/13/24 18:15 05/13/24 18:15 48.75 MLS/HR Midazolam HCl 50 ml @ 1 mls/hr Q24H IV 05/13/24 13:05 05/13/24 13:05 4 MLS/HR Fentanyl Citrate 250 ml @ 2.5 mls/hr Q24H IV 05/13/24 13:05 05/13/24 13:05 2.5 MLS/HR Sodium Chloride 1,000 ml @ 75 mls/hr [id number] IV 05/13/24 19:45 05/13/24 21:55 75 MLS/HR objective General: Arousable awake but altered and lethargic HEENT: NC/AT EOMI dry mucous membranes Heart: Tachycardic regular rhythm Abdomen: Soft nontender nondistended Extremity: No clubbing cyanosis or edema laboratory and microbiology Laboratory Tests 05/13/24 21:02 05/13/24 13:24 Test 05/13/24 13:24 Range/Units Serum Glucose 153 H 74-106 mg/dL Problems(with codes): (1) Hepatic encephalopathy (2) Generalized weakness (3) Urinary tract infection (4) Pulmonary vascular congestion (5) Ascites (6) Cirrhosis (7) Liver failure (8) Hepatitis C Prognosis Plan Patient had been downgraded to the floor however he required to be reintubated because of respiratory failure Patient is now back in ICU 106 There was no overt GI bleeding Patient has mild persistent elevation liver enzymes and mild lactic acidosis Continue supportive care and monitor labs Continue oral lactulose Meld score is 19 points suggestive of good prognosis Maddrey discrimination function is 27 points, patient does not need steroids at this time Outpatient follow up with GI Services once awake and stable for further evaluation and management of hepatitis-C Dietary Evaluation Review Comments: 1. Per RN, pt is able to drink liquid but unable to manage jello. Will Downgrade his CCHO-60 diet to pureed texture. 2. offer Glucern BID if PO is still poor 3. elevated BUN, f/u and reassess after pt has a GI and nephrology consult. 4. consider clinimix as a form of protein supplementation as pt has very low albumin. Expected Outcomes/Goals: Gradual wt loss, better DM control. Plan discussed with: Other (ICU Nurse) PAULINA BAINS MD May 13, 2024 22:30
[2024-05-14] VITALS (107 sets, daily range): BP systolic 95–164; BP diastolic 29–65; PULSE 59–79; RESP 17–26; TEMP 97.7–98.8; O2SAT 90–98
--- NOTE | 2024-05-14 01:58 | DVH ---
CHEST RADIOGRAPH Indication: NG tube placement Technique: Single frontal view of the chest was obtained COMPARISON: XY CHEST XRAY 1 VIEW on DOS: 05/13/24, XY CHEST PORTABLE on DOS: 05/11/24, XY CHEST PORTABL E on DOS: 05/10/24, XY CHEST PORTABLE on DOS: 05/09/24, XY CHEST PORTABLE on DOS: 05/07/24 FINDINGS: Lines and Tubes: The distal portion of the enteric catheter is not well visualized. Otherwise, lines and tubes unchanged. Lungs: Persistent diffuse increased prominence of the pulmonary vasculature without evidence of focal consolidation. Pleura: No effusion. No pneumothorax. Cardiomediastinal contours: Unremarkable Bones: Unremarkable IMPRESSION: 1. Stable diffuse increased prominence of the pulmonary vasculature. 2. Distal aspect of enteric catheter not well visualized. Remaining lines and tubes unchanged.
[2024-05-14 03:46] LABS: Basophils # (auto) 0 10 ^3/uL (0-0.2); Eosinophils # (auto) 0 10 ^3/uL (0-0.8); Eosinophils % (auto) 0.1 % (0.0-7.0); Hematocrit 28.1 % (41.0-53.0); Hemoglobin 8.7 g/dL (13.5-17.5); Lymphocytes % (auto) 3.4 % (10.0-50.0); Mean Corpuscular Hgb Conc. 30.9 g/dL (32.0-36.0); Monocytes # (auto) 1.1 10 ^3/uL (0-1.3); Nucleated Red Blood Cells % 0.4 %; Platelet Count (auto) 98 10^3/uL (140-450)
[2024-05-14 03:49] LABS: Basophils % (auto) 0.1 % (0.0-2.0); Lymphocytes # (auto) 0.3 10 ^3/uL (0.4-5.4); Mean Corpuscular Hemoglobin 29.8 pg (28.0-32.0); Mean Corpuscular Volume 96.5 fL (80.0-100.0); Monocytes % (auto) 11.3 % (0.0-12.0); Neutrophils # (auto) 8.7 10 ^3/uL (1.6-8.6); Neutrophils % (auto) 85.1 % (37.0-80.0); Red Blood Cells 2.91 10^6/uL (4.5-5.90); Red Cell Distribution Width 22.2 % (11.8-14.3); White Blood Cell 10.2 10^3/uL (4.4-10.8)
[2024-05-14 04:03] LABS: INR 1.68 (0.9-1.15); Prothrombin Time 16.9 sec (9.3-11.8)
[2024-05-14 04:11] LABS: Anion Gap 8 (5-15); BUN/Creatinine Ratio 20.3 (10.0-20.0); Carbon Dioxide 25 mmol/L (20-31); Magnesium 1.8 mg/dL (1.6-2.6); Potassium 4.2 mmol/L (3.5-5.1)
[2024-05-14 04:17] LABS: Alanine Aminotransferase 49 U/L (7-40); Alkaline Phosphatase 229 U/L (46-116); Aspartate Aminotransferase 88 U/L (13-40); Bilirubin, Total 12.1 mg/dL (0.2-1.0); Blood Urea Nitrogen 27 mg/dL (9-23); Calcium 8.1 mg/dL (8.7-10.4); Chloride 114 mmol/L (98-107); Glucose 116 mg/dL (74-106); Sodium 147 mmol/L (136-145)
[2024-05-14 04:18] LABS: Albumin 2.6 g/dL (3.2-4.8); Total Protein 5.5 g/dL (5.7-8.2)
[2024-05-14] MEDS: NOREPINEPHRINE 8 MG/250ML KIT 250 ML IV SCH (04:45)
[2024-05-14] MEDS: MIDAZOLAM DRIP 50 mg/50mL 50 ML IV SCH (06:05)
[2024-05-14] MEDS: fentaNYL Drip 2500mCg/250mlNS 250 ML IV SCH (06:17)
[2024-05-14 06:34] LABS: Base Excess -4.5 mmol/L (-2.0-3.0)
[2024-05-14] MEDS: SODIUM CHLOR 0.9% PF (SALINE LOCK) 10ML VIAL/SYR IV SCH (10:00)
--- NOTE | 2024-05-14 10:22 | DVHPN2 ---
Reviewed: Care Plan, H&P, Labs, Medications, Previous Orders, Radiology, Other (Consultations) Changes from previous H/P or p: No Changes Objective Vitals Vital Signs Date Time Temp Pulse Resp B/P (MAP) Pulse Ox O2 Delivery O2 Flow Rate FiO2 05/14/24 08:13 60 22 117/42 (67) 96 60 05/14/24 04:00 97.8 97.8 05/13/24 20:00 Mechanical Ventilator+ 60 Intake/Output Intake and Output 05/14/24 07:00 Intake Total 1867.50 ml Output Total 825 ml Balance 1042.50 ml Intake Oral 150 ml IV Total 1717.50 ml Output Urine Total 825 ml General Appearance: Other (Lethargic; anasarca) HEENT: Atraumatic, Other (NG tube in place) Lungs: Other (Decreased air entry bilateral with decreased respiratory rate) Cardiovascular: Normal S1, Normal S2, No murmurs, Other (Tachycardia) Abdomen: Normal bowel sounds, Soft, Other (Ventral hernia; reducible; no ascites palpated) Genitourinary: Other (Junior's) Extremities: Other (Stasis changes of the skin of lower extremities with nonpitting edema) Neuro: Other (Lethargic; opening eyes to painful stimuli) Psych/Mental Status: Other (Lethargic) Medications Current Medications Medications Dose Ordered Sig/Kenisha Route Start Time Stop Time Status Last Admin Dose Admin Sodium Chloride 10 ml Q8HR IV 05/07/24 06:00 05/14/24 06:24 10 ML Ondansetron HCl 4 mg Q4HP PRN IV 05/06/24 22:15 Docusate Sodium 100 mg BIDPRN PRN PO 05/06/24 22:15 Pantoprazole Sodium 40 mg BID IV 05/08/24 22:00 05/14/24 10:00 40 MG Rifaximin 550 mg BID PO 05/09/24 22:00 05/14/24 09:59 550 MG Ertapenem 1 gm/ Sodium Chloride 50 ml @ 100 mls/hr DAILY IV 05/10/24 10:00 05/13/24 10:39 100 MLS/HR Methadone HCl 10 mg Q8HR PO 05/09/24 22:00 05/14/24 05:13 10 MG Thiamine HCl 100 mg DAILY IV 05/10/24 10:00 05/14/24 10:00 100 MG Flecainide Acetate 100 mg Q12HR PO 05/09/24 22:00 05/14/24 09:59 100 MG Folic Acid 1 mg DAILY PO 05/11/24 10:00 05/14/24 10:00 1 MG Diagnostic Test (Pha) 1 strip Q6HR 05/10/24 18:00 05/14/24 05:13 1 STRIP Insulin Human Regular FOLLOW SLIDING SCALE Q6HR SC 05/10/24 18:00 05/13/24 11:38 2 UNITS Dextrose 50 ml UD IV 05/10/24 17:15 Haloperidol Lactate 5 mg Q8HP PRN IM 05/10/24 19:15 05/12/24 12:42 5 MG Albuterol 2.5 mg Q6HPRN PRN NEB 05/11/24 06:30 05/12/24 08:23 2.5 MG Ipratropium [place] 0.5 mg Q6HPRN PRN NEB 05/11/24 06:30 05/12/24 08:23 0.5 MG Enteral Nutritional Formula 1,000 ml 30ML/HR GT 05/12/24 12:45 05/13/24 01:23 1,000 ML Lactulose 30 ml TID NG 05/12/24 22:00 05/14/24 05:13 30 ML Phenylephrine HCl 250 ml @ 30 mls/hr Q8H20M IV 05/13/24 14:15 05/13/24 14:15 30 MLS/HR Sodium Chloride 10 ml QSHIFT@10,22 IV 05/13/24 22:00 05/14/24 10:02 10 ML Sodium Chloride 1,000 ml @ 75 mls/hr [id number] IV 05/13/24 19:45 05/14/24 09:05 75 MLS/HR Norepinephrine Bitartrate 250 ml @ 3.75 mls/hr Q24H IV 05/14/24 04:45 Midazolam HCl 50 ml @ 1 mls/hr Q24H IV 05/14/24 04:45 05/14/24 06:05 5 MLS/HR Fentanyl Citrate 250 ml @ 2.5 mls/hr Q24H IV 05/14/24 04:45 05/14/24 06:17 17.5 MLS/HR Laboratory Results Laboratory Tests 05/14/24 03:16 Chemistry Test 05/13/24 13:24 05/14/24 03:16 Calcium Level 9.2 mg/dL (8.7-10.4) 8.1 mg/dL (8.7-10.4) L Magnesium Level 2.2 mg/dL (1.6-2.6) 1.8 mg/dL (1.6-2.6) Albumin 2.6 g/dL (3.2-4.8) L Total Protein 5.5 g/dL (5.7-8.2) L Coagulation Test 05/14/24 03:16 Prothrombin Time 16.9 sec (9.3-11.8) H Prothrombin Time INR 1.68 (0.9-1.15) H LFT Test 05/14/24 03:16 Alanine Aminotransferase (ALT) 49 U/L (7-40) H Alkaline Phosphatase 229 U/L (46-116) H Aspartate Amino Transferase (AST) 88 U/L (13-40) H Total Bilirubin 12.1 mg/dL (0.2-1.0) H Urinalysis Test 05/07/24 01:30 Urine Color Dark-yellow (Yellow) Urine Clarity Turbid (Clear) H Urine pH 5.5 (5.0-9.0) Urine Specific [place] 1.015 (1.001-1.035) Urine Protein 2+ (Negative) H Urine Ketones Negative (Negative) Urine Blood 2+ /uL (Negative) H Urine Nitrite Negative (Negative) Urine Bilirubin 1+ (Negative) Urine Urobilinogen 2 mg/dL (Negative) H Urine Leukocyte Esterase 3+ /uL (Negative) Urine RBC 8 /hpf (0 - 3) Urine Microscopic WBC 193 /HPF (0-3) H Urine Squamous Epithelial Cells Few /hpf (<5) Urine Bacteria Mod /hpf (None Seen) H Urine Hyaline Casts Few /lpf (0 - 2) Urine Mucus Few (None Seen) Urine Glucose Normal mg/dL (Normal) Blood Gas Results Test 05/13/24 14:10 05/13/24 16:34 05/14/24 06:28 Arterial Blood pH 7.173 (7.350-7.450) 7.260 (7.350-7.450) 7.228 (7.350-7.450) FiO2 % 100.0 50.0 60.0 Microbiology Microbiology Date/Time Source Procedure Growth Status 05/08/24 23:41 Nose MRSA Screen - Final Complete 05/08/24 08:45 Blood Blood Culture - Final NO GROWTH AFTER 5 DAYS OF INCUBATION. Complete 05/07/24 01:30 Voided Urine Urine Culture - Final Klebsiella pneumoniae - ESBL Complete Labs and/or images reviewed: Labs reviewed by me, Image(s) reviewed by me Assessment/Plan Assessment/Plan Covering for resident physician Dr Davies Acute hypoxic respiratory failure: Status post intubated on 60 percent FiO2: Consult for pulmonology Dr. Fragoso for vent management Aspiration pneumonia Status post cardiac arrest Septic shock Secondary to UTI and pneumonia urine cultures growing ESBL E coli: Continue Invanz Acute hepatic encephalopathy Atrial fibrillation Acute on chronic congestive heart failure Non STEMI type 2 Hep C positive Hepatorenal syndrome Pancytopenia due to hypersplenism Acute metabolic acidosis History of substance abuse methamphetamine Seen in the ICU time spent 70 minutes Patient is full code Condition guarded Advanced care planning time 20 minutes Plan discussed with: Patient My Orders Orders - ANY WILLIS MD Procedure Category Date Status Time *Consult CONS 05/14/24 Verified / 10:17 Date of Service: May 14, 2024 Billing Provider: ANY WILLIS MD Common Visit Codes: [id number] CARE 30-74 MIN ANY WILLIS MD May 14, 2024 10:22
--- NOTE | 2024-05-14 10:59 | DVHINCON2 ---
Date of service: May 14, 2024 Referring Physician patient had cannulation of left internal jugular vein following which there was concern for developing a carotid to jugular vein fistulization. There is no bruit, no thrill, no evidence of fistula on angiogram, no indication for surgical intervention, full consult dictated Family History: Patient reports no known family medical history. Allergies: Coded Allergies: Morphine (Verified Allergy, Severe, 05/11/24) PER SISTER EBONI HUERTA Home Meds Active Scripts Spironolactone (Aldactone) 25 Mg Tab, 50 MG PO DAILY for 30 Days, #60 TAB Prov:JANETT SILVERMAN 07/09/23 Rifaximin (Xifaxan) 550 Mg Tab, 550 MG PO BID for 30 Days, #60 TAB Prov:JANETT SILVERMAN 07/09/23 Furosemide (Furosemide) 20 Mg Tab, 60 MG PO BIDD for 30 Days, #180 TAB Prov:JANETT SILVERMAN 07/09/23 Lactulose (Lactulose) 10 Gm/15 Ml Trista, 30 ML PO Q2HR for 30 Days, #30 ML Prov:JANETT SILVERMAN 07/09/23 Ergocalciferol (VITAMIN D 75161 UNIT) 50,000 [place], [address] UNIT PO Q7D for 30 Days, #10 CAP Prov:JANETT SILVERMAN 07/09/23 Insulin Glargine (Lantus) 100 Unit/Ml Inj, 15 UNITS SC BID@1000,2200, #10 INJ Prov:ADEOLA OROPEZA MD 10/03/21 Reported Medications Sodium Bicarbonate (Sodium Bicarbonate) 650 Mg Tab, PO 06/30/23 Pot Phosphate Dibasic & Monoba (Neutra-Phos) 1 Tab Tb, PO 06/30/23 Gabapentin (Gabapentin) 300 Mg Cap, 1 CAP PO Q8H 06/30/23 Morphine Sulfate (Morphine Sulfate) 30 Mg Tab, 1 TAB PO TID 06/30/23 Current Medications Current Medications Medications (Trade) Dose Ordered Sig/Kenisha Route PRN Reason Start Time Stop Time Status Last Admin Phenylephrine HCl 250 ml @ 30 mls/hr Q8H20M IV 05/13/24 14:15 05/13/24 14:15 Sodium Chloride (Saline Lock Ns) 10 ml QSHIFT@10,22 IV 05/13/24 22:00 05/14/24 10:02 Norepinephrine Bitartrate 250 ml @ 3.75 mls/hr Q24H IV 05/13/24 18:15 05/14/24 08:40 DC 05/14/24 06:06 Midazolam HCl 50 ml @ 1 mls/hr Q24H IV 05/13/24 18:30 05/13/24 18:39 DC Midazolam HCl 50 ml @ 1 mls/hr Q24H IV 05/13/24 13:05 05/14/24 08:39 DC 05/13/24 13:05 Fentanyl Citrate 250 ml @ 2.5 mls/hr Q24H IV 05/13/24 13:05 05/14/24 08:40 DC 05/13/24 13:05 Sodium Chloride 1,000 ml @ 100 mls/hr Q10H IV 05/13/24 19:00 05/13/24 19:33 DC Sodium Chloride 1,000 ml @ 75 mls/hr [id number] IV 05/13/24 19:45 05/14/24 09:05 Norepinephrine Bitartrate 250 ml @ 3.75 mls/hr Q24H IV 05/14/24 04:45 Midazolam HCl 50 ml @ 1 mls/hr Q24H IV 05/14/24 04:45 05/14/24 06:05 Fentanyl Citrate 250 ml @ 2.5 mls/hr Q24H IV 05/14/24 04:45 05/14/24 06:17 Vital Signs Vital Signs Date Time Temp Pulse Resp B/P (MAP) Pulse Ox O2 Delivery O2 Flow Rate FiO2 05/14/24 08:13 60 22 117/42 (67) 96 60 05/14/24 08:00 Mechanical Ventilator+ 60 05/14/24 04:00 97.8 97.8 Labs/Diagnostic Data Labs Test 05/14/24 06:28 05/14/24 05:04 05/14/24 03:16 05/14/24 00:18 Range/Units Blood Gas Specimen Type Arterial Blood Gas Sample Site Right radial Blood Gas Patient Temperature 37.0 Arterial Blood Date Drawn [id number] Arterial Blood pH 7.228 *L 7.350-7.450 Arterial Blood Partial Pressure CO2 57.4 H 35.0-48.0 mmHg Arterial Blood Partial Pressure O2 81.9 L 83.0-108.0 mmHg Arterial Blood HCO3 23.4 21.0-28.0 mmol/L Arterial Blood Oxygen Saturation 93.7 L 94.0-98.0 % Arterial Blood Base Excess -4.5 L -2.0-3.0 mmol/L Arterial Blood Oxyhemoglobin 92.6 L 94.0-98.0 % Arterial Blood Carboxyhemoglobin 0.9 0.5-1.5 % Arterial Blood Methemoglobin 0.3 0.0-1.5 % Mike Test Modified Blood Gas Total Hemoglobin 10.40 L 13.5-17.5 g/dL Blood Gas Set Respiration Rate 22.0 Blood Gas Modality Vent - ac FiO2 % 60.0 Blood Gas Tidal Volume 550.0 Blood Gas PEEP or CPAP 5.0 Blood Gas Critical Value Read Back yes Blood Gas Notified Whom Blood Gas Notified Time [id number] Blood Gas Notified By rt lauryn POC Glucose 121 H 70-106 mg/dl White Blood Count 10.2 # 4.4-10.8 10^3/uL Red Blood Count 2.91 L 4.5-5.90 10^6/uL Hemoglobin 8.7 L 13.5-17.5 g/dL Hematocrit 28.1 L 41.0-53.0 % Mean Corpuscular Volume 96.5 80.0-100.0 fL Mean Corpuscular Hemoglobin 29.8 28.0-32.0 pg Mean Corpuscular Hemoglobin Concent 30.9 L 32.0-36.0 g/dL Red Cell Distribution Width 22.2 H 11.8-14.3 % Platelet Count 98 L 140-450 10^3/uL Mean Platelet Volume 9.5 6.9-10.8 fL Neutrophils (%) (Auto) 85.1 H 37.0-80.0 % Lymphocytes (%) (Auto) 3.4 L 10.0-50.0 % Monocytes (%) (Auto) 11.3 0.0-12.0 % Eosinophils (%) (Auto) 0.1 0.0-7.0 % Basophils (%) (Auto) 0.1 0.0-2.0 % Neutrophils # (Auto) 8.7 H 1.6-8.6 10 ^3/uL Lymphocytes # (Auto) 0.3 L 0.4-5.4 10 ^3/uL Monocytes # (Auto) 1.1 0-1.3 10 ^3/uL Eosinophils # (Auto) 0 0-0.8 10 ^3/uL Basophils # (Auto) 0 0-0.2 10 ^3/uL Nucleated Red Blood Cells 0.4 % Prothrombin Time 16.9 H 9.3-11.8 sec Prothrombin Time INR 1.68 H 0.9-1.15 Sodium Level 147 H 136-145 mmol/L Potassium Level 4.2 3.5-5.1 mmol/L Chloride Level 114 H 98-107 mmol/L Carbon Dioxide Level 25 20-31 mmol/L Anion Gap 8 5-15 Blood Urea Nitrogen 27 H 9-23 mg/dL Creatinine 1.33 H 0.700-1.30 mg/dL Glomerular Filtration Rate Calc 60 >90 mL/min BUN/Creatinine Ratio 20.3 H 10.0-20.0 Serum Glucose 116 H 74-106 mg/dL Calcium Level 8.1 L 8.7-10.4 mg/dL Magnesium Level 1.8 1.6-2.6 mg/dL Total Bilirubin 12.1 H 0.2-1.0 mg/dL Aspartate Amino Transferase (AST) 88 H 13-40 U/L Alanine Aminotransferase (ALT) 49 H 7-40 U/L Alkaline Phosphatase 229 H 46-116 U/L Ammonia 36 H 11-32 umol/L Total Protein 5.5 L 5.7-8.2 g/dL Albumin 2.6 L 3.2-4.8 g/dL Troponin I High Sensitivity 22 </=54 ng/L Test 05/13/24 23:10 05/13/24 05:00 05/12/24 03:21 05/11/24 03:10 Range/Units Lactic Acid Level 2.0 0.4-2.0 mmol/L Platelet Estimate Decreased Clumped Platelets None Phosphorus Level 2.1 L 2.4-5.1 mg/dL B-Type Natriuretic Peptide 360.94 0-100 pg/mL Triglycerides Level 101 < 150 mg/dL Test 05/09/24 16:25 05/08/24 08:45 05/08/24 08:27 05/07/24 01:30 Range/Units Stool Occult Blood Positive Negative Stool Occult Blood Sample #3 Negative Thyroid Stimulating Hormone (TSH) 0.59 0.55-4.78 uIU/mL Blood Gas Liter Flow 40.00 Urine Color Dark-yellow Yellow Urine Clarity Turbid H Clear Urine pH 5.5 5.0-9.0 Urine Specific [place] 1.015 1.001-1.035 Urine Protein 2+ H Negative Urine Ketones Negative Negative Urine Blood 2+ H Negative /uL Urine Nitrite Negative Negative Urine Bilirubin 1+ Negative Urine Urobilinogen 2 H Negative mg/dL Urine Leukocyte Esterase 3+ Negative /uL Urine RBC 8 0 - 3 /hpf Urine Microscopic WBC 193 H 0-3 /HPF Urine Squamous Epithelial Cells Few <5 /hpf Urine Bacteria Mod H None Seen /hpf Urine Hyaline Casts Few 0 - 2 /lpf Urine Mucus Few None Seen Urine Glucose Normal Normal mg/dL Urine Opiates Screen Pos NEGATIVE Urine Fentanyl Screen Neg NEGATIVE Urine Barbiturates Screen Neg NEGATIVE Urine Phencyclidine Screen Neg NEGATIVE Urine Amphetamines Screen Pos NEGATIVE Urine Benzodiazepines Screen Neg NEGATIVE Urine Cocaine Screen Neg NEGATIVE Urine Cannabinoids Screen Neg NEGATIVE Test 05/06/24 17:20 Range/Units Plasma/Serum Blood Alcohol < 3.0 <10 mg/dL Microbiology Date/Time Source Procedure Growth Status 05/13/24 13:55 Sputum Gram Stain - Final Resulted 05/13/24 13:55 Sputum Respiratory Culture - Preliminary Resulted 05/08/24 23:41 Nose MRSA Screen - Final Complete 05/08/24 08:45 Blood Blood Culture - Final NO GROWTH AFTER 5 DAYS OF INCUBATION. Complete 05/07/24 01:30 Voided Urine Urine Culture - Final Klebsiella pneumoniae - ESBL Complete Plan discussed with: Other LISETH FALCON MD May 14, 2024 10:59
--- NOTE | 2024-05-14 11:22 | DVHPN2 ---
Progress Note Date Seen: May 14, 2024 Medical Necessity Reason Pt with a Central, PICC or Fol: Yes The following are medically ne: Mcduffie Catheter Reason for mcduffie catheter: Strict I&O Subjective Patient reports: Other (intubated) Review of Systems: RESPIRATORY:Abnormal Objective vital signs Vital Sign Date Time Temp Pulse Resp B/P (MAP) Pulse Ox O2 Delivery O2 Flow Rate FiO2 05/14/24 11:04 114/45 05/14/24 10:20 66 22 95 60 05/14/24 08:00 Mechanical Ventilator+ 60 05/14/24 04:00 97.8 97.8 Total Intake and Output 05/13/24 05/13/24 05/14/24 15:00 23:00 07:00 Intake Total 660.00 ml 1207.50 ml Output Total 425 ml 400 ml Balance 235.00 ml 807.50 ml medications Current Medications Medications Dose Ordered Sig/Kenisha Route Start Time Stop Time Status Last Admin Dose Admin Sodium Chloride 10 ml Q8HR IV 05/07/24 06:00 05/14/24 06:24 10 ML Ondansetron HCl 4 mg Q4HP PRN IV 05/06/24 22:15 Docusate Sodium 100 mg BIDPRN PRN PO 05/06/24 22:15 Pantoprazole Sodium 40 mg BID IV 05/08/24 22:00 05/14/24 10:00 40 MG Rifaximin 550 mg BID PO 05/09/24 22:00 05/14/24 09:59 550 MG Ertapenem 1 gm/ Sodium Chloride 50 ml @ 100 mls/hr DAILY IV 05/10/24 10:00 05/13/24 10:39 100 MLS/HR Methadone HCl 10 mg Q8HR PO 05/09/24 22:00 05/14/24 05:13 10 MG Thiamine HCl 100 mg DAILY IV 05/10/24 10:00 05/14/24 10:00 100 MG Flecainide Acetate 100 mg Q12HR PO 05/09/24 22:00 05/14/24 09:59 100 MG Folic Acid 1 mg DAILY PO 05/11/24 10:00 05/14/24 10:00 1 MG Diagnostic Test (Pha) 1 strip Q6HR 05/10/24 18:00 05/14/24 05:13 1 STRIP Insulin Human Regular FOLLOW SLIDING SCALE Q6HR SC 05/10/24 18:00 05/13/24 11:38 2 UNITS Dextrose 50 ml UD IV 05/10/24 17:15 Haloperidol Lactate 5 mg Q8HP PRN IM 05/10/24 19:15 05/12/24 12:42 5 MG Albuterol 2.5 mg Q6HPRN PRN NEB 05/11/24 06:30 05/12/24 08:23 2.5 MG Ipratropium [place] 0.5 mg Q6HPRN PRN NEB 05/11/24 06:30 05/12/24 08:23 0.5 MG Enteral Nutritional Formula 1,000 ml 30ML/HR GT 05/12/24 12:45 05/13/24 01:23 1,000 ML Lactulose 30 ml TID NG 05/12/24 22:00 05/14/24 05:13 30 ML Phenylephrine HCl 250 ml @ 30 mls/hr Q8H20M IV 05/13/24 14:15 05/13/24 14:15 30 MLS/HR Sodium Chloride 10 ml QSHIFT@10,22 IV 05/13/24 22:00 05/14/24 10:02 10 ML Sodium Chloride 1,000 ml @ 75 mls/hr [id number] IV 05/13/24 19:45 05/14/24 09:05 75 MLS/HR Norepinephrine Bitartrate 250 ml @ 3.75 mls/hr Q24H IV 05/14/24 04:45 05/14/24 11:04 41.25 MLS/HR Midazolam HCl 50 ml @ 1 mls/hr Q24H IV 05/14/24 04:45 05/14/24 06:05 5 MLS/HR Fentanyl Citrate 250 ml @ 2.5 mls/hr Q24H IV 05/14/24 04:45 05/14/24 06:17 17.5 MLS/HR Examination: GENERAL:Abnormal, LUNGS:Abnormal, ABDOMEN:Abnormal, SKIN:Abnormal laboratory and microbiology Laboratory Tests 05/14/24 03:16 Test 05/14/24 03:16 Range/Units Serum Glucose 116 H 74-106 mg/dL Microbiology Date/Time Source Procedure Growth Status 05/13/24 13:55 Sputum Gram Stain - Final Resulted 05/13/24 13:55 Sputum Respiratory Culture - Preliminary Resulted 05/08/24 23:41 Nose MRSA Screen - Final Complete 05/08/24 08:45 Blood Blood Culture - Final NO GROWTH AFTER 5 DAYS OF INCUBATION. Complete 05/07/24 01:30 Voided Urine Urine Culture - Final Klebsiella pneumoniae - ESBL Complete Problem List/Assessment/Plan Problem List/Assessment/Plan Acute kidney injury hemodynamically mediated in the setting of hypotension and shock Acute respiratory failure in the setting of aspiration pneumonia Hepatic encephalopathy Decompensated liver cirrhosis \ Acute methamphetamine intoxication Hepatitis-C Multidrug resistant ESBL urinary tract infection Aspiration pneumonia Levophed maintain mean arterial pressure greater than 65 IVF s/p CTA yesterday monitor for KEELY Continue broad-spectrum antibiotics and cultures Renal dose medications Guarded prognosis due to significant comorbidities. Critical care time spent 70 minutes Plan discussed with: Other My Orders My Orders Orders - PIETRO VILLEDA MD Procedure Category Date Status Time Sod Chl 0.45% (Sodium PHA 05/13/24 In Process Chloride 0.45% Via 19:45 Dietary Evaluation Review Comments: 1. Per RN, pt is able to drink liquid but unable to manage jello. Will Downgrade his CCHO-60 diet to pureed texture. 2. offer Glucern BID if PO is still poor 3. elevated BUN, f/u and reassess after pt has a GI and nephrology consult. 4. consider clinimix as a form of protein supplementation as pt has very low albumin. Expected Outcomes/Goals: Gradual wt loss, better DM control. PIETRO VILLEDA MD May 14, 2024 11:22
--- NOTE | 2024-05-14 12:01 | DVHINCON2 ---
DATE OF CONSULTATION: 05/14/2024 SURGICAL CONSULTATION HISTORY OF PRESENT ILLNESS: The patient is a 63-year-old male who has history of liver cirrhosis, congestive heart failure, diabetes mellitus, urinary tract infections. The patient became unresponsive on the day of admission and was brought to the emergency room where he was given Narcan following which he awakened. The patient's initial workup was positive for cardiomegaly and pulmonary vascular congestion. PAST SURGICAL HISTORY: Hernia repair. REVIEW OF SYSTEMS: Apparently no contributory information is gained from review of 12 systems. ALLERGIES: The patient is allergic to MORPHINE. PHYSICAL EXAMINATION: GENERAL: Well-developed well-nourished male. HEENT: Pupils are constricted but reactive. Pupils are symmetrical. Sclerae are nonicteric. External ocular motion is not tested. The patient's jugular veins are collapsed. HEART: Regular rate and rhythm. Carotid artery without bruit. LUNGS: Clear bilaterally. ABDOMEN: There is no abdominal mass noted. The patient apparently had a left internal jugular vein cannulation following which there was suggestion of possibility of a jugular vein-carotid artery fistulization. This was suggested by the patient's carotid Doppler study which was then followed by CT scan angiogram which ruled out the presence of a fistulous communication. Both common carotid arteries are unremarkable and there is no evidence of extravasation. On physical examination, there is no swelling, no bruit, no thrill palpated in the area. The fistulous connection between the left common carotid artery and internal jugular vein has been ruled out. Should there be development of a bruit or swelling in the near future, the carotid angiogram should be repeated. However, at the present time, there is no indication for surgical intervention. MD ROSI Monzon/PILY TID: [id number] RECEIPT: [id number]
[2024-05-14 16:04] LABS: Base Excess -0.8 mmol/L (-2.0-3.0)
--- NOTE | 2024-05-14 22:37 | DVHPN2 ---
Progress Note - Dictate Date Seen: May 14, 2024 Medical Necessity Reason Pt with a Central, PICC or Fol: Yes The following are medically ne: Mcduffie Catheter Reason for mcduffie catheter: Strict I&O Subjective Patient seen in ICU 106 He is intubated sedated Patient is on 70% FiO2 Persistent mod elevation in liver enzymes vital signs Vital Sign Date Time Temp Pulse Resp B/P (MAP) Pulse Ox O2 Delivery O2 Flow Rate FiO2 05/14/24 20:13 78 26 121/43 (69) 96 70 05/14/24 16:45 98.1 98.1 05/14/24 08:00 Mechanical Ventilator+ 60 Total Intake and Output 05/13/24 05/13/24 05/14/24 15:00 23:00 07:00 Intake Total 31.5 ml 725.00 ml 1207.50 ml Output Total 425 ml 400 ml Balance 31.5 ml 300.00 ml 807.50 ml medications Current Medications Medications Dose Ordered Sig/Kenisha Route Start Time Stop Time Status Last Admin Dose Admin Sodium Chloride 10 ml Q8HR IV 05/07/24 06:00 05/14/24 13:38 10 ML Ondansetron HCl 4 mg Q4HP PRN IV 05/06/24 22:15 Docusate Sodium 100 mg BIDPRN PRN PO 05/06/24 22:15 Pantoprazole Sodium 40 mg BID IV 05/08/24 22:00 05/14/24 10:00 40 MG Rifaximin 550 mg BID PO 05/09/24 22:00 05/14/24 09:59 550 MG Ertapenem 1 gm/ Sodium Chloride 50 ml @ 100 mls/hr DAILY IV 05/10/24 10:00 05/14/24 12:00 100 MLS/HR Methadone HCl 10 mg Q8HR PO 05/09/24 22:00 05/14/24 05:13 10 MG Thiamine HCl 100 mg DAILY IV 05/10/24 10:00 05/14/24 10:00 100 MG Flecainide Acetate 100 mg Q12HR PO 05/09/24 22:00 05/14/24 09:59 100 MG Folic Acid 1 mg DAILY PO 05/11/24 10:00 05/14/24 10:00 1 MG Diagnostic Test (Pha) 1 strip Q6HR 05/10/24 18:00 05/14/24 18:00 1 STRIP Insulin Human Regular FOLLOW SLIDING SCALE Q6HR SC 05/10/24 18:00 05/13/24 11:38 2 UNITS Dextrose 50 ml UD IV 05/10/24 17:15 Haloperidol Lactate 5 mg Q8HP PRN IM 05/10/24 19:15 05/12/24 12:42 5 MG Albuterol 2.5 mg Q6HPRN PRN NEB 05/11/24 06:30 05/12/24 08:23 2.5 MG Ipratropium [place] 0.5 mg Q6HPRN PRN NEB 05/11/24 06:30 05/12/24 08:23 0.5 MG Enteral Nutritional Formula 1,000 ml 30ML/HR GT 05/12/24 12:45 05/13/24 01:23 1,000 ML Lactulose 30 ml TID NG 05/12/24 22:00 05/14/24 13:43 30 ML Phenylephrine HCl 250 ml @ 30 mls/hr Q8H20M IV 05/13/24 14:15 05/13/24 14:15 30 MLS/HR Sodium Chloride 10 ml QSHIFT@10,22 IV 05/13/24 22:00 05/14/24 10:02 10 ML Sodium Chloride 1,000 ml @ 75 mls/hr [id number] IV 05/13/24 19:45 05/14/24 09:05 75 MLS/HR Norepinephrine Bitartrate 250 ml @ 3.75 mls/hr Q24H IV 05/14/24 04:45 05/14/24 16:41 41.25 MLS/HR Midazolam HCl 50 ml @ 1 mls/hr Q24H IV 05/14/24 04:45 05/14/24 13:37 5 MLS/HR Fentanyl Citrate 250 ml @ 2.5 mls/hr Q24H IV 05/14/24 04:45 05/14/24 17:30 17.5 MLS/HR objective General: Intubated sedated HEENT: NC/AT EOMI dry mucous membranes Heart: Tachycardic regular rhythm Abdomen: Soft nontender nondistended Extremity: No clubbing cyanosis or edema laboratory and microbiology Laboratory Tests 05/14/24 03:16 Test 05/14/24 03:16 Range/Units Serum Glucose 116 H 74-106 mg/dL Problems(with codes): (1) Hepatitis C (2) Liver failure (3) Cirrhosis (4) Ascites (5) Pulmonary vascular congestion (6) Anemia, unspecified (7) Urinary tract infection (8) Generalized weakness (9) Hepatic encephalopathy (10) Aspiration pneumonia Prognosis Plan Continue supportive care Nutritional supplements On enteral tube feedings Broad-spectrum antibiotics Thiamine, lactulose, Rifaximin Monitor labs; Viridis Learning discrimination function 39.2 suggestive of poor prognosis we will start steroids Patient has underlying cirrhosis with a previously placed tips procedure Meld score is 24 points suggestive of 19.6% three-month mortality Prognosis remains guarded Dietary Evaluation Review Comments: 1. Per RN, pt is able to drink liquid but unable to manage jello. Will Downgrade his CCHO-60 diet to pureed texture. 2. offer Glucern BID if PO is still poor 3. elevated BUN, f/u and reassess after pt has a GI and nephrology consult. 4. consider clinimix as a form of protein supplementation as pt has very low albumin. Expected Outcomes/Goals: Gradual wt loss, better DM control. Plan discussed with: Other (ICU Nurse) PAULINA BAINS MD May 14, 2024 22:36
--- NOTE | 2024-05-14 23:14 | DVHPN2 ---
Progress Note - Dictate Date Seen: May 14, 2024 Medical Necessity Reason Pt with a Central, PICC or Fol: Yes The following are medically ne: Mcduffie Catheter Reason for mcduffie catheter: Strict I&O Subjective Patient seen and examined at bedside. Sedated, intubated on mechanical ventilator. Overnight events reviewed. vital signs Vital Sign Date Time Temp Pulse Resp B/P (MAP) Pulse Ox O2 Delivery O2 Flow Rate FiO2 05/14/24 22:16 75 26 114/31 (58) 96 70 05/14/24 16:45 98.1 98.1 05/14/24 08:00 Mechanical Ventilator+ 60 Total Intake and Output 05/13/24 05/13/24 05/14/24 15:00 23:00 07:00 Intake Total 31.5 ml 725.00 ml 1207.50 ml Output Total 425 ml 400 ml Balance 31.5 ml 300.00 ml 807.50 ml medications Current Medications Medications Dose Ordered Sig/Kenisha Route Start Time Stop Time Status Last Admin Dose Admin Sodium Chloride 10 ml Q8HR IV 05/07/24 06:00 05/14/24 13:38 10 ML Ondansetron HCl 4 mg Q4HP PRN IV 05/06/24 22:15 Docusate Sodium 100 mg BIDPRN PRN PO 05/06/24 22:15 Pantoprazole Sodium 40 mg BID IV 05/08/24 22:00 05/14/24 10:00 40 MG Rifaximin 550 mg BID PO 05/09/24 22:00 05/14/24 09:59 550 MG Ertapenem 1 gm/ Sodium Chloride 50 ml @ 100 mls/hr DAILY IV 05/10/24 10:00 05/14/24 12:00 100 MLS/HR Methadone HCl 10 mg Q8HR PO 05/09/24 22:00 05/14/24 05:13 10 MG Thiamine HCl 100 mg DAILY IV 05/10/24 10:00 05/14/24 10:00 100 MG Flecainide Acetate 100 mg Q12HR PO 05/09/24 22:00 05/14/24 09:59 100 MG Folic Acid 1 mg DAILY PO 05/11/24 10:00 05/14/24 10:00 1 MG Diagnostic Test (Pha) 1 strip Q6HR 05/10/24 18:00 05/14/24 18:00 1 STRIP Insulin Human Regular FOLLOW SLIDING SCALE Q6HR SC 05/10/24 18:00 05/13/24 11:38 2 UNITS Dextrose 50 ml UD IV 05/10/24 17:15 Haloperidol Lactate 5 mg Q8HP PRN IM 05/10/24 19:15 05/12/24 12:42 5 MG Albuterol 2.5 mg Q6HPRN PRN NEB 05/11/24 06:30 05/12/24 08:23 2.5 MG Ipratropium [place] 0.5 mg Q6HPRN PRN NEB 05/11/24 06:30 05/12/24 08:23 0.5 MG Enteral Nutritional Formula 1,000 ml 30ML/HR GT 05/12/24 12:45 05/13/24 01:23 1,000 ML Lactulose 30 ml TID NG 05/12/24 22:00 05/14/24 13:43 30 ML Phenylephrine HCl 250 ml @ 30 mls/hr Q8H20M IV 05/13/24 14:15 05/13/24 14:15 30 MLS/HR Sodium Chloride 10 ml QSHIFT@10,22 IV 05/13/24 22:00 05/14/24 10:02 10 ML Sodium Chloride 1,000 ml @ 75 mls/hr [id number] IV 05/13/24 19:45 05/14/24 09:05 75 MLS/HR Norepinephrine Bitartrate 250 ml @ 3.75 mls/hr Q24H IV 05/14/24 04:45 05/14/24 16:41 41.25 MLS/HR Midazolam HCl 50 ml @ 1 mls/hr Q24H IV 05/14/24 04:45 05/14/24 13:37 5 MLS/HR Fentanyl Citrate 250 ml @ 2.5 mls/hr Q24H IV 05/14/24 04:45 05/14/24 17:30 17.5 MLS/HR Methylprednisolone Sodium Succinate 20 mg BID IV 05/15/24 10:00 objective Gen.: Patient lying in bed in medical ICU. Sedated, intubated on mechanical ventilator. Head: Normocephalic, atraumatic. Eyes: PERRLA. Ears: Normal external anatomy. Throat: Endotracheal tube and orogastric tube in place. Neck: Supple, trachea midline. Chest: Transmitted breath sounds bilaterally. Decreased air entry bilaterally. No wheezing. Bibasilar crackles. Cardiovascular: Positive S1, positive S2. Regular rate and rhythm. Abdomen: Positive bowel sounds in all 4 quadrants. Soft, nontender, nondistended. : Mcduffie in place. Normal external genitalia. Rectal: Deferred. Skin: Warm, dry. Intact. Extremities: 2+ radial pulses bilaterally. No lower extremity edema. Neuro: Sedated. laboratory and microbiology Laboratory Tests 05/14/24 03:16 Test 05/14/24 03:16 Range/Units Serum Glucose 116 H 74-106 mg/dL Assessment/Plan Impression: Acute hypoxic respiratory failure Acute hypercarbic respiratory failure On mechanical ventilator Metabolic acidosis Drug abuse/methamphetamine abuse Elevated troponin Hepatic encephalopathy Urinary tract infection Pulmonary edema. Nicotine dependence Obesity BMI 36.4 Events: Currently on vent support On AC mode; RR 22, VT 550, PEEP 5, FiO2 60% Increase RR to 26, increase PEEP to 8 Sedated on Versed, Fentanyl Pressors for hemodynamic support On Levophed 22 mcg/min Titrate to keep mean arterial pressure greater than 65 mmHg. Continue antibiotics IV fluids at 75 ml/hr. ABG reviewed, notable for acidemia. CXR reviewed, reveals stable diffuse increased prominence of the pulmonary vasculature. Labs and imaging reviewed. Rest of plan as noted below. Plan: s/p intubation on mechanical ventilator. On AC mode; RR 22, VT 550, PEEP 5, FiO2 60% Increase RR to 26, increase PEEP to 8 Titrate FIO2 to keep O2 saturation above 90%. VAP bundle. Daily ABG and CXR while intubated Sedate for ventilator synchrony Pressors as necessary for hemodynamic support Titrate to keep mean arterial pressure greater than 65 mmHg. Continue antibiotics Follow up cultures Head of bed elevation Aspiration precautions Smoking cessation education given. Counseled against drug abuse. Monitor renal function. Monitor electrolytes. Supplement as necessary. Monitor ins and outs. DVT prophylaxis. Prognosis: Poor given patient's multiple co-morbidities. Condition: Critical Rest of plan per hospitalist and other consultants. A total of 35 minutes of critical care time was spent reviewing the patient record, examining the patient, making a diagnostic and therapeutic plan, discussing this plan with the medical personnel, following up on diagnostic studies and following the patient for clinical stability excluding any and all procedures. At least 50% of this time was spent in direct, [id number] contact. Thank you, [employer] Roberta, for allowing me to participate in this patient's care. Further recommendations will depend on the patient's clinical course. Please do not hesitate to contact me if you have any questions or concerns. This medical document was created using an electronic medical record system with [employer] dictation system. Although these documentations are being carefully reviewed, there may still be some phonetic and typographical changes. The errors are purely typographical, due to imperfection on the software program, and do not reflect any compromise in the patient's medical care. Dietary Evaluation Review Comments: 1. Per RN, pt is able to drink liquid but unable to manage jello. Will Downgrade his CCHO-60 diet to pureed texture. 2. offer Glucern BID if PO is still poor 3. elevated BUN, f/u and reassess after pt has a GI and nephrology consult. 4. consider clinimix as a form of protein supplementation as pt has very low albumin. Expected Outcomes/Goals: Gradual wt loss, better DM control. Plan discussed with: Other (MARCOS Alford) Critical Care Time(min): 35 JITENDRA WATERS MD May 14, 2024 23:13
[2024-05-15] VITALS (108 sets, daily range): BP systolic 81–199; BP diastolic 29–73; PULSE 74–102; RESP 19–97; TEMP 98.6–99.1; O2SAT 91–99
[2024-05-15 04:20] LABS: Potassium 4.7 mmol/L (3.5-5.1); Sodium 144 mmol/L (136-145)
[2024-05-15 04:21] LABS: Anion Gap 8 (5-15); Carbon Dioxide 24 mmol/L (20-31)
[2024-05-15 04:22] LABS: Calcium 8.9 mg/dL (8.7-10.4)
[2024-05-15 05:00] LABS: Blood Urea Nitrogen 43 mg/dL (9-23); Chloride 112 mmol/L (98-107); Glucose 118 mg/dL (74-106)
[2024-05-15 06:36] LABS: Basophils # (auto) 0 10 ^3/uL (0-0.2); Basophils % (auto) 0.3 % (0.0-2.0); Eosinophils # (auto) 0.6 10 ^3/uL (0-0.8); Eosinophils % (auto) 3.6 % (0.0-7.0); Hematocrit 29.6 % (41.0-53.0); Hemoglobin 9.4 g/dL (13.5-17.5); Lymphocytes % (auto) 6.2 % (10.0-50.0); Mean Corpuscular Hemoglobin 30.9 pg (28.0-32.0); Mean Corpuscular Hgb Conc. 31.8 g/dL (32.0-36.0); Mean Corpuscular Volume 97.1 fL (80.0-100.0); Monocytes # (auto) 2.2 10 ^3/uL (0-1.3); Monocytes % (auto) 13.5 % (0.0-12.0); Neutrophils # (auto) 12.6 10 ^3/uL (1.6-8.6); Neutrophils % (auto) 76.4 % (37.0-80.0); Nucleated Red Blood Cells % 0.8 %; Platelet Count (auto) 158 10^3/uL (140-450); Red Blood Cells 3.05 10^6/uL (4.5-5.90); White Blood Cell 16.5 10^3/uL (4.4-10.8)
[2024-05-15 06:56] LABS: Anisocytosis Moderate; Macrocytosis Slight; Platelet Estimate Adequate; Red Cell Distribution Width 22.6 % (11.8-14.3)
[2024-05-15 07:04] LABS: BUN/Creatinine Ratio 18.6 (10.0-20.0)
--- NOTE | 2024-05-15 07:18 | DVHPN2 ---
Reviewed: Care Plan, H&P, Labs, Medications, Previous Orders, Radiology, Other (Consultations) Changes from previous H/P or p: No Changes Objective Vitals Vital Signs Date Time Temp Pulse Resp B/P (MAP) Pulse Ox O2 Delivery O2 Flow Rate FiO2 05/15/24 06:22 115/36 05/15/24 06:10 79 26 98 65 05/15/24 00:00 Mechanical Ventilator+ 05/15/24 00:00 99.0 99.0 05/14/24 08:00 60 Intake/Output Intake and Output 05/15/24 07:00 Intake Total 2479.50 ml Output Total 450 ml Balance 2029.50 ml Intake Oral 150 ml IV Total 2329.50 ml Output Urine Total 450 ml General Appearance: Other (Lethargic; anasarca) HEENT: Atraumatic, Other (NG tube in place) Lungs: Other (Decreased air entry bilateral with decreased respiratory rate) Cardiovascular: Normal S1, Normal S2, No murmurs, Other (Tachycardia) Abdomen: Normal bowel sounds, Soft, Other (Ventral hernia; reducible; no ascites palpated) Genitourinary: Other (Junior's) Extremities: Other (Stasis changes of the skin of lower extremities with nonpitting edema) Neuro: Other (Lethargic; opening eyes to painful stimuli) Psych/Mental Status: Other (Lethargic) Medications Current Medications Medications Dose Ordered Sig/Kenisha Route Start Time Stop Time Status Last Admin Dose Admin Sodium Chloride 10 ml Q8HR IV 05/07/24 06:00 05/15/24 06:13 10 ML Ondansetron HCl 4 mg Q4HP PRN IV 05/06/24 22:15 Docusate Sodium 100 mg BIDPRN PRN PO 05/06/24 22:15 Pantoprazole Sodium 40 mg BID IV 05/08/24 22:00 05/14/24 23:12 40 MG Rifaximin 550 mg BID PO 05/09/24 22:00 05/14/24 23:12 550 MG Ertapenem 1 gm/ Sodium Chloride 50 ml @ 100 mls/hr DAILY IV 05/10/24 10:00 05/14/24 12:00 100 MLS/HR Methadone HCl 10 mg Q8HR PO 05/09/24 22:00 05/15/24 06:14 10 MG Thiamine HCl 100 mg DAILY IV 05/10/24 10:00 05/14/24 10:00 100 MG Flecainide Acetate 100 mg Q12HR PO 05/09/24 22:00 05/14/24 23:12 100 MG Folic Acid 1 mg DAILY PO 05/11/24 10:00 05/14/24 10:00 1 MG Diagnostic Test (Pha) 1 strip Q6HR 05/10/24 18:00 05/15/24 06:14 1 STRIP Insulin Human Regular FOLLOW SLIDING SCALE Q6HR SC 05/10/24 18:00 05/13/24 11:38 2 UNITS Dextrose 50 ml UD IV 05/10/24 17:15 Haloperidol Lactate 5 mg Q8HP PRN IM 05/10/24 19:15 05/12/24 12:42 5 MG Albuterol 2.5 mg Q6HPRN PRN NEB 05/11/24 06:30 05/15/24 06:23 2.5 MG Ipratropium [place] 0.5 mg Q6HPRN PRN NEB 05/11/24 06:30 05/15/24 06:23 0.5 MG Enteral Nutritional Formula 1,000 ml 30ML/HR GT 05/12/24 12:45 05/14/24 23:12 1,000 ML Lactulose 30 ml TID NG 05/12/24 22:00 05/15/24 06:13 30 ML Phenylephrine HCl 250 ml @ 30 mls/hr Q8H20M IV 05/13/24 14:15 05/15/24 02:50 30 MLS/HR Sodium Chloride 10 ml QSHIFT@10,22 IV 05/13/24 22:00 05/14/24 23:13 10 ML Sodium Chloride 1,000 ml @ 75 mls/hr [id number] IV 05/13/24 19:45 05/14/24 23:25 75 MLS/HR Norepinephrine Bitartrate 250 ml @ 3.75 mls/hr Q24H IV 05/14/24 04:45 05/15/24 04:41 56.25 MLS/HR Midazolam HCl 50 ml @ 1 mls/hr Q24H IV 05/14/24 04:45 05/14/24 23:37 6 MLS/HR Fentanyl Citrate 250 ml @ 2.5 mls/hr Q24H IV 05/14/24 04:45 05/15/24 06:17 20 MLS/HR Methylprednisolone Sodium Succinate 20 mg BID IV 05/15/24 10:00 Laboratory Results Laboratory Tests 05/15/24 03:33 Chemistry Test 05/15/24 03:33 Calcium Level 8.9 mg/dL (8.7-10.4) Urinalysis Test 05/07/24 01:30 Urine Color Dark-yellow (Yellow) Urine Clarity Turbid (Clear) H Urine pH 5.5 (5.0-9.0) Urine Specific [place] 1.015 (1.001-1.035) Urine Protein 2+ (Negative) H Urine Ketones Negative (Negative) Urine Blood 2+ /uL (Negative) H Urine Nitrite Negative (Negative) Urine Bilirubin 1+ (Negative) Urine Urobilinogen 2 mg/dL (Negative) H Urine Leukocyte Esterase 3+ /uL (Negative) Urine RBC 8 /hpf (0 - 3) Urine Microscopic WBC 193 /HPF (0-3) H Urine Squamous Epithelial Cells Few /hpf (<5) Urine Bacteria Mod /hpf (None Seen) H Urine Hyaline Casts Few /lpf (0 - 2) Urine Mucus Few (None Seen) Urine Glucose Normal mg/dL (Normal) Blood Gas Results Test 05/14/24 15:50 Arterial Blood pH 7.314 (7.350-7.450) FiO2 % 30.0 Microbiology Microbiology Date/Time Source Procedure Growth Status 05/13/24 14:00 Nose MRSA Screen - Final Complete 05/13/24 13:55 Sputum Gram Stain - Final Resulted 05/13/24 13:55 Sputum Respiratory Culture - Preliminary Resulted 05/08/24 08:45 Blood Blood Culture - Final NO GROWTH AFTER 5 DAYS OF INCUBATION. Complete 05/07/24 01:30 Voided Urine Urine Culture - Final Klebsiella pneumoniae - ESBL Complete Labs and/or images reviewed: Labs reviewed by me, Image(s) reviewed by me Assessment/Plan Assessment/Plan Covering for resident physician Dr Davies Acute hypoxic respiratory failure: Status post intubated on 60 percent FiO2: Consult for pulmonology Dr. Fragoso for vent management Aspiration pneumonia Status post cardiac arrest Septic shock Secondary to UTI and pneumonia urine cultures growing ESBL E coli: Continue Invanz Acute hepatic encephalopathy Atrial fibrillation Acute on chronic congestive heart failure Non STEMI type 2 Hep C positive Hepatorenal syndrome Pancytopenia due to hypersplenism Acute metabolic acidosis History of substance abuse methamphetamine Seen in the ICU time spent 70 minutes Patient is full code Condition guarded Advanced care planning time 20 minutes Leukocytosis 16 K possibly secondary to Solu-Medrol, we will repeat blood cultures, continue Invanz Plan discussed with: Patient My Orders Orders - ANY WILLIS MD Procedure Category Date Status Time *Consult CONS 05/14/24 Transmitted / 10:17 Cover Wound With Foam ANTHONY 05/14/24 In Process Dressing 12:47 Date of Service: May 15, 2024 Billing Provider: ANY WILLIS MD Common Visit Codes: [id number] CARE 30-74 MIN ANY WILLIS MD May 15, 2024 07:18
[2024-05-15 07:32] LABS: Base Excess -5.6 mmol/L (-2.0-3.0)
[2024-05-15 10:03] LABS: Base Excess -5.5 mmol/L (-2.0-3.0)
[2024-05-15] MEDS: methylPREDNISolone SOD SUCC 40 MG/ML VL IV SCH (10:38)
--- NOTE | 2024-05-15 12:07 | DVH ---
CHEST RADIOGRAPH Indication: ET and OG Tube Placement Confirmation Technique: Single frontal view of the chest was obtained Comparison: XY CHEST XRAY 1 VIEW on DOS: 05/14/24, XY CHEST XRAY 1 VIEW on DOS: 05/13/24, XY CHEST PORT ABLE on DOS: 05/11/24, XY CHEST PORTABLE on DOS: 05/10/24, XY CHEST PORTABLE on DOS: 05/09/24, XY CHEST XRAY 1 VIEW on DOS: 05/14/24 FINDINGS: Lines and Tubes: The distal portion of the enteric catheter is not well visualized. Otherwise, lines and tubes unchanged. Lungs: Persistent diffuse increased prominence of the pulmonary vasculature without evidence of focal consolidation. Pleura: No effusion. No pneumothorax. Cardiomediastinal contours: Unremarkable Bones: Unremarkable IMPRESSION: 1. Stable diffuse increased prominence of the pulmonary vasculature. 2. Distal aspect of enteric catheter not well visualized. Remaining lines and tubes unchanged.
--- NOTE | 2024-05-15 12:26 | DVH ---
Exam: US US GUIDED VASCULAR ACCESS Date: 05/13/2024 05:12 PM Clinical History: picc line placement Comparison: US US GUIDED VASCULAR ACCESS on DOS: 06/29/23 Findings: Targeted sonographic evaluation of the right basilic vein was obtained utilizing grayscale and color Doppler imaging. IMPRESSION: Sonographic assistance for central line placement. Please refer to procedural report for detailed fin dings.
[2024-05-15 13:17] LABS: Base Excess -5.9 mmol/L (-2.0-3.0)
--- NOTE | 2024-05-15 13:24 | DVHPN2 ---
Progress Note Date Seen: May 15, 2024 Medical Necessity Reason Pt with a Central, PICC or Fol: Yes The following are medically ne: Mcduffie Catheter Reason for mcduffie catheter: Strict I&O Subjective Patient reports: Other (intubated) Review of Systems: RESPIRATORY:Abnormal Objective vital signs Vital Sign Date Time Temp Pulse Resp B/P (MAP) Pulse Ox O2 Delivery O2 Flow Rate FiO2 05/15/24 12:52 84 26 119/46 (70) 92 40 05/15/24 12:00 Mechanical Ventilator+ 05/15/24 11:15 99.1 99.1 05/14/24 08:00 60 Total Intake and Output 05/14/24 05/14/24 05/15/24 15:00 23:00 07:00 Intake Total 1080.00 ml 1110.00 ml 1461.75 ml Output Total 450 ml 100 ml Balance 1080.00 ml 660.00 ml 1361.75 ml medications Current Medications Medications Dose Ordered Sig/Kenisha Route Start Time Stop Time Status Last Admin Dose Admin Sodium Chloride 10 ml Q8HR IV 05/07/24 06:00 05/15/24 06:13 10 ML Ondansetron HCl 4 mg Q4HP PRN IV 05/06/24 22:15 Docusate Sodium 100 mg BIDPRN PRN PO 05/06/24 22:15 Pantoprazole Sodium 40 mg BID IV 05/08/24 22:00 05/15/24 10:38 40 MG Rifaximin 550 mg BID PO 05/09/24 22:00 05/15/24 10:38 550 MG Ertapenem 1 gm/ Sodium Chloride 50 ml @ 100 mls/hr DAILY IV 05/10/24 10:00 05/15/24 10:54 100 MLS/HR Methadone HCl 10 mg Q8HR PO 05/09/24 22:00 05/15/24 06:14 10 MG Thiamine HCl 100 mg DAILY IV 05/10/24 10:00 05/15/24 10:38 100 MG Flecainide Acetate 100 mg Q12HR PO 05/09/24 22:00 05/15/24 10:39 100 MG Folic Acid 1 mg DAILY PO 05/11/24 10:00 05/15/24 10:39 1 MG Diagnostic Test (Pha) 1 strip Q6HR 05/10/24 18:00 05/15/24 12:11 1 STRIP Insulin Human Regular FOLLOW SLIDING SCALE Q6HR SC 05/10/24 18:00 05/13/24 11:38 2 UNITS Dextrose 50 ml UD IV 05/10/24 17:15 Haloperidol Lactate 5 mg Q8HP PRN IM 05/10/24 19:15 05/12/24 12:42 5 MG Albuterol 2.5 mg Q6HPRN PRN NEB 05/11/24 06:30 05/15/24 12:51 2.5 MG Ipratropium [place] 0.5 mg Q6HPRN PRN NEB 05/11/24 06:30 05/15/24 12:52 0.5 MG Enteral Nutritional Formula 1,000 ml 30ML/HR GT 05/12/24 12:45 05/14/24 23:12 1,000 ML Lactulose 30 ml TID NG 05/12/24 22:00 05/15/24 06:13 30 ML Phenylephrine HCl 250 ml @ 30 mls/hr Q8H20M IV 05/13/24 14:15 05/15/24 09:24 48.75 MLS/HR Sodium Chloride 10 ml QSHIFT@10,22 IV 05/13/24 22:00 05/15/24 10:39 10 ML Sodium Chloride 1,000 ml @ 75 mls/hr [id number] IV 05/13/24 19:45 05/14/24 23:25 75 MLS/HR Norepinephrine Bitartrate 250 ml @ 3.75 mls/hr Q24H IV 05/14/24 04:45 05/15/24 09:23 56.25 MLS/HR Midazolam HCl 50 ml @ 1 mls/hr Q24H IV 05/14/24 04:45 05/15/24 09:23 6 MLS/HR Fentanyl Citrate 250 ml @ 2.5 mls/hr Q24H IV 05/14/24 04:45 05/15/24 06:17 20 MLS/HR Methylprednisolone Sodium Succinate 20 mg BID IV 05/15/24 10:00 05/15/24 10:38 20 MG Albuterol 2.5 mg Q4HR NEB 05/15/24 14:00 Ipratropium [place] 0.5 mg Q4HR NEB 05/15/24 14:00 Examination: GENERAL:Abnormal, CVS:Abnormal, ABDOMEN:Abnormal, SKIN:Abnormal, NEURO:Abnormal laboratory and microbiology Laboratory Tests 05/15/24 03:33 Test 05/15/24 03:33 Range/Units Serum Glucose 118 H 74-106 mg/dL Microbiology Date/Time Source Procedure Growth Status 05/13/24 14:00 Nose MRSA Screen - Final Complete 05/13/24 13:55 Sputum Gram Stain - Final Resulted 05/13/24 13:55 Sputum Respiratory Culture - Preliminary Resulted 05/08/24 08:45 Blood Blood Culture - Final NO GROWTH AFTER 5 DAYS OF INCUBATION. Complete 05/07/24 01:30 Voided Urine Urine Culture - Final Klebsiella pneumoniae - ESBL Complete Problem List/Assessment/Plan Problem List/Assessment/Plan Acute kidney injury hemodynamically mediated in the setting of hypotension and shock Acute respiratory failure in the setting of aspiration pneumonia Hepatic encephalopathy Decompensated liver cirrhosis \ Acute methamphetamine intoxication Hepatitis-C Multidrug resistant ESBL urinary tract infection Aspiration pneumonia Contrast load from 48 hours ago likely contributing to sudden rise in cr Levophed maintain mean arterial pressure greater than 65 IVF Continue broad-spectrum antibiotics and cultures Renal dose medications Guarded prognosis due to significant comorbidities. Critical care time spent 70 minutes Plan discussed with: Other Dietary Evaluation Review Comments: 1. Per RN, pt is able to drink liquid but unable to manage jello. Will Downgrade his CCHO-60 diet to pureed texture. 2. offer Glucern BID if PO is still poor 3. elevated BUN, f/u and reassess after pt has a GI and nephrology consult. 4. consider clinimix as a form of protein supplementation as pt has very low albumin. Expected Outcomes/Goals: Gradual wt loss, better DM control. PIETRO VILLEDA MD May 15, 2024 13:24
[2024-05-15] MEDS: IPRATROPIUM BROM 0.5 MG/2.5ML INH SOL NEB SCH (14:07)
[2024-05-15] MEDS: ALBUTEROL SULF 2.5 MG/0.5ML(0.5%) NEB SOLN NEB SCH (14:07)
[2024-05-15] MEDS: HYDROCORTISONE SOD SUCC 100 MG/2ML INJ VIAL IV SCH (20:39)
--- NOTE | 2024-05-15 21:13 | DVHPN2 ---
Progress Note - Dictate Date Seen: May 15, 2024 Medical Necessity Reason Pt with a Central, PICC or Fol: Yes The following are medically ne: Mcduffie Catheter Reason for mcduffie catheter: Strict I&O Subjective Patient seen in ICU 106 He is intubated sedated Patient is on 40% FiO2 Persistent mod elevation in liver enzymes; ammonia 35 vital signs Vital Sign Date Time Temp Pulse Resp B/P (MAP) Pulse Ox O2 Delivery O2 Flow Rate FiO2 05/15/24 20:30 93 26 118/44 (68) 93 40 05/15/24 18:00 Mechanical Ventilator+ 05/15/24 17:00 99.1 99.1 05/14/24 08:00 60 Total Intake and Output 05/14/24 05/14/24 05/15/24 15:00 23:00 07:00 Intake Total 1080.00 ml 1110.00 ml 1461.75 ml Output Total 450 ml 100 ml Balance 1080.00 ml 660.00 ml 1361.75 ml medications Current Medications Medications Dose Ordered Sig/Kenisha Route Start Time Stop Time Status Last Admin Dose Admin Sodium Chloride 10 ml Q8HR IV 05/07/24 06:00 05/15/24 20:39 10 ML Ondansetron HCl 4 mg Q4HP PRN IV 05/06/24 22:15 Docusate Sodium 100 mg BIDPRN PRN PO 05/06/24 22:15 Pantoprazole Sodium 40 mg BID IV 05/08/24 22:00 05/15/24 20:39 40 MG Rifaximin 550 mg BID PO 05/09/24 22:00 05/15/24 20:40 550 MG Ertapenem 1 gm/ Sodium Chloride 50 ml @ 100 mls/hr DAILY IV 05/10/24 10:00 05/15/24 10:54 100 MLS/HR Methadone HCl 10 mg Q8HR PO 05/09/24 22:00 05/15/24 20:40 10 MG Thiamine HCl 100 mg DAILY IV 05/10/24 10:00 05/15/24 10:38 100 MG Flecainide Acetate 100 mg Q12HR PO 05/09/24 22:00 05/15/24 20:40 100 MG Folic Acid 1 mg DAILY PO 05/11/24 10:00 05/15/24 10:39 1 MG Diagnostic Test (Pha) 1 strip Q6HR 05/10/24 18:00 05/15/24 17:50 1 STRIP Insulin Human Regular FOLLOW SLIDING SCALE Q6HR SC 05/10/24 18:00 05/15/24 17:55 2 UNITS Dextrose 50 ml UD IV 05/10/24 17:15 Haloperidol Lactate 5 mg Q8HP PRN IM 05/10/24 19:15 05/12/24 12:42 5 MG Albuterol 2.5 mg Q6HPRN PRN NEB 05/11/24 06:30 05/15/24 12:51 2.5 MG Ipratropium [place] 0.5 mg Q6HPRN PRN NEB 05/11/24 06:30 05/15/24 12:52 0.5 MG Enteral Nutritional Formula 1,000 ml 30ML/HR GT 05/12/24 12:45 05/15/24 20:42 1,000 ML Lactulose 30 ml TID NG 05/12/24 22:00 05/15/24 20:40 30 ML Phenylephrine HCl 250 ml @ 30 mls/hr Q8H20M IV 05/13/24 14:15 05/15/24 09:24 48.75 MLS/HR Sodium Chloride 10 ml QSHIFT@10,22 IV 05/13/24 22:00 05/15/24 20:39 10 ML Sodium Chloride 1,000 ml @ 75 mls/hr [id number] IV 05/13/24 19:45 05/15/24 14:19 75 MLS/HR Norepinephrine Bitartrate 250 ml @ 3.75 mls/hr Q24H IV 05/14/24 04:45 05/15/24 18:39 48.75 MLS/HR Midazolam HCl 50 ml @ 1 mls/hr Q24H IV 05/14/24 04:45 05/15/24 18:34 6 MLS/HR Fentanyl Citrate 250 ml @ 2.5 mls/hr Q24H IV 05/14/24 04:45 05/15/24 18:38 20 MLS/HR Albuterol 2.5 mg Q4HR NEB 05/15/24 14:00 05/15/24 18:44 2.5 MG Ipratropium [place] 0.5 mg Q4HR NEB 05/15/24 14:00 05/15/24 18:43 0.5 MG Hydrocortisone Sodium Succinate 100 mg Q8HR IV 05/15/24 22:00 05/15/24 20:39 100 MG objective General: Intubated sedated HEENT: NC/AT EOMI dry mucous membranes Heart: Tachycardic regular rhythm Abdomen: Soft nontender nondistended Extremity: No clubbing cyanosis or edema laboratory and microbiology Laboratory Tests 05/15/24 03:33 Test 05/15/24 03:33 Range/Units Serum Glucose 118 H 74-106 mg/dL Problems(with codes): (1) Aspiration pneumonia (2) Hepatitis C (3) Liver failure (4) Cirrhosis (5) Ascites (6) Urinary tract infection (7) Anemia, unspecified (8) Pulmonary vascular congestion (9) Hepatic encephalopathy (10) Generalized weakness Prognosis Plan Continue supportive care Nutritional supplements On enteral tube feedings Broad-spectrum antibiotics Thiamine, lactulose, Rifaximin Monitor labs; FluGen discrimination function 39.2 suggestive of poor prognosis we will start steroids Patient has underlying cirrhosis with a previously placed tips procedure Meld score is 24 points suggestive of 19.6% three-month mortality Prognosis remains guarded Dietary Evaluation Review Comments: 1. Per RN, pt is able to drink liquid but unable to manage jello. Will Downgrade his CCHO-60 diet to pureed texture. 2. offer Glucern BID if PO is still poor 3. elevated BUN, f/u and reassess after pt has a GI and nephrology consult. 4. consider clinimix as a form of protein supplementation as pt has very low albumin. Expected Outcomes/Goals: Gradual wt loss, better DM control. Plan discussed with: Other (ICU Nurse) PAULINA BAINS MD May 15, 2024 21:13
--- NOTE | 2024-05-15 23:19 | DVHPN2 ---
Progress Note - Dictate Date Seen: May 15, 2024 Medical Necessity Reason Pt with a Central, PICC or Fol: Yes The following are medically ne: Mcduffie Catheter Reason for mcduffie catheter: Strict I&O Subjective Patient seen and examined at bedside. Sedated, intubated on mechanical ventilator. Overnight events reviewed. vital signs Vital Sign Date Time Temp Pulse Resp B/P (MAP) Pulse Ox O2 Delivery O2 Flow Rate FiO2 05/15/24 22:39 90 26 120/44 (69) 93 40 05/15/24 18:00 Mechanical Ventilator+ 05/15/24 17:00 99.1 99.1 05/14/24 08:00 60 Total Intake and Output 05/14/24 05/14/24 05/15/24 15:00 23:00 07:00 Intake Total 1080.00 ml 1110.00 ml 1461.75 ml Output Total 450 ml 100 ml Balance 1080.00 ml 660.00 ml 1361.75 ml medications Current Medications Medications Dose Ordered Sig/Kenisha Route Start Time Stop Time Status Last Admin Dose Admin Sodium Chloride 10 ml Q8HR IV 05/07/24 06:00 05/15/24 20:39 10 ML Ondansetron HCl 4 mg Q4HP PRN IV 05/06/24 22:15 Docusate Sodium 100 mg BIDPRN PRN PO 05/06/24 22:15 Pantoprazole Sodium 40 mg BID IV 05/08/24 22:00 05/15/24 20:39 40 MG Rifaximin 550 mg BID PO 05/09/24 22:00 05/15/24 20:40 550 MG Ertapenem 1 gm/ Sodium Chloride 50 ml @ 100 mls/hr DAILY IV 05/10/24 10:00 05/15/24 10:54 100 MLS/HR Methadone HCl 10 mg Q8HR PO 05/09/24 22:00 05/15/24 20:40 10 MG Thiamine HCl 100 mg DAILY IV 05/10/24 10:00 05/15/24 10:38 100 MG Flecainide Acetate 100 mg Q12HR PO 05/09/24 22:00 05/15/24 20:40 100 MG Folic Acid 1 mg DAILY PO 05/11/24 10:00 05/15/24 10:39 1 MG Diagnostic Test (Pha) 1 strip Q6HR 05/10/24 18:00 05/15/24 17:50 1 STRIP Insulin Human Regular FOLLOW SLIDING SCALE Q6HR SC 05/10/24 18:00 05/15/24 17:55 2 UNITS Dextrose 50 ml UD IV 05/10/24 17:15 Haloperidol Lactate 5 mg Q8HP PRN IM 05/10/24 19:15 05/12/24 12:42 5 MG Albuterol 2.5 mg Q6HPRN PRN NEB 05/11/24 06:30 05/15/24 12:51 2.5 MG Ipratropium [place] 0.5 mg Q6HPRN PRN NEB 05/11/24 06:30 05/15/24 12:52 0.5 MG Enteral Nutritional Formula 1,000 ml 30ML/HR GT 05/12/24 12:45 05/15/24 20:42 1,000 ML Lactulose 30 ml TID NG 05/12/24 22:00 05/15/24 20:40 30 ML Phenylephrine HCl 250 ml @ 30 mls/hr Q8H20M IV 05/13/24 14:15 05/15/24 09:24 48.75 MLS/HR Sodium Chloride 10 ml QSHIFT@10,22 IV 05/13/24 22:00 05/15/24 20:39 10 ML Sodium Chloride 1,000 ml @ 75 mls/hr [id number] IV 05/13/24 19:45 05/15/24 14:19 75 MLS/HR Norepinephrine Bitartrate 250 ml @ 3.75 mls/hr Q24H IV 05/14/24 04:45 05/15/24 18:39 48.75 MLS/HR Midazolam HCl 50 ml @ 1 mls/hr Q24H IV 05/14/24 04:45 05/15/24 18:34 6 MLS/HR Fentanyl Citrate 250 ml @ 2.5 mls/hr Q24H IV 05/14/24 04:45 05/15/24 18:38 20 MLS/HR Albuterol 2.5 mg Q4HR NEB 05/15/24 14:00 05/15/24 22:39 2.5 MG Ipratropium [place] 0.5 mg Q4HR NEB 05/15/24 14:00 05/15/24 22:39 0.5 MG Hydrocortisone Sodium Succinate 100 mg Q8HR IV 05/15/24 22:00 05/15/24 20:39 100 MG objective Gen.: Patient lying in bed in medical ICU. Sedated, intubated on mechanical ventilator. Head: Normocephalic, atraumatic. Eyes: PERRLA. Ears: Normal external anatomy. Throat: Endotracheal tube and orogastric tube in place. Neck: Supple, trachea midline. Chest: Transmitted breath sounds bilaterally. Decreased air entry bilaterally. No wheezing. Bibasilar crackles. Cardiovascular: Positive S1, positive S2. Regular rate and rhythm. Abdomen: Positive bowel sounds in all 4 quadrants. Soft, nontender, nondistended. : Mcduffie in place. Normal external genitalia. Rectal: Deferred. Skin: Warm, dry. Intact. Extremities: 2+ radial pulses bilaterally. No lower extremity edema. Neuro: Sedated. laboratory and microbiology Laboratory Tests 05/15/24 03:33 Test 05/15/24 03:33 Range/Units Serum Glucose 118 H 74-106 mg/dL Assessment/Plan Impression: Acute hypoxic respiratory failure Acute hypercarbic respiratory failure On mechanical ventilator Metabolic acidosis Drug abuse/methamphetamine abuse Elevated troponin Hepatic encephalopathy Urinary tract infection Pulmonary edema. Nicotine dependence Obesity BMI 36.4 Events: Remains on vent support On AC mode; RR 26, VT 550 -->650, PEEP 8, FiO2 60 -->40% Sedated on Versed, Fentanyl Pressors for hemodynamic support On Levophed 30 mcg/min Titrate to keep mean arterial pressure greater than 65 mmHg. Continue bronchodilators Continue antibiotics Start hydrocortisone 100 mg q.8 hours Stop Solu-Medrol IV fluids at 75 ml/hr. Tube feeds for nutritional support ABG reviewed, notable for acidemia. CXR reviewed, reveals stable diffuse increased prominence of the pulmonary vasculature. Labs and imaging reviewed. Rest of plan as noted below. Plan: s/p intubation on mechanical ventilator. On AC mode; RR 26, VT 650, PEEP 8, FiO2 40% Titrate FIO2 to keep O2 saturation above 90%. VAP bundle. Daily ABG and CXR while intubated Sedate for ventilator synchrony Pressors as necessary for hemodynamic support Titrate to keep mean arterial pressure greater than 65 mmHg. Continue antibiotics Follow up cultures Head of bed elevation Aspiration precautions Smoking cessation education given. Counseled against drug abuse. Monitor renal function. Monitor electrolytes. Supplement as necessary. Monitor ins and outs. DVT prophylaxis. Prognosis: Poor given patient's multiple co-morbidities. Condition: Critical Rest of plan per hospitalist and other consultants. A total of 35 minutes of critical care time was spent reviewing the patient record, examining the patient, making a diagnostic and therapeutic plan, discussing this plan with the medical personnel, following up on diagnostic studies and following the patient for clinical stability excluding any and all procedures. At least 50% of this time was spent in direct, [id number] contact. Thank you, KAVEH Granados, for allowing me to participate in this patient's care. Further recommendations will depend on the patient's clinical course. Please do not hesitate to contact me if you have any questions or concerns. This medical document was created using an electronic medical record system with [employer] dictation system. Although these documentations are being carefully reviewed, there may still be some phonetic and typographical changes. The errors are purely typographical, due to imperfection on the software program, and do not reflect any compromise in the patient's medical care. Dietary Evaluation Review Comments: 1. Per RN, pt is able to drink liquid but unable to manage jello. Will Downgrade his CCHO-60 diet to pureed texture. 2. offer Glucern BID if PO is still poor 3. elevated BUN, f/u and reassess after pt has a GI and nephrology consult. 4. consider clinimix as a form of protein supplementation as pt has very low albumin. Expected Outcomes/Goals: Gradual wt loss, better DM control. Plan discussed with: Other (MARCOS Casey) Critical Care Time(min): 35 JITENDRA WATERS MD May 15, 2024 23:19
[2024-05-16] VITALS (105 sets, daily range): BP systolic 74–146; BP diastolic 31–67; PULSE 76–134; RESP 25–28; TEMP 96.4–99.5; O2SAT 85–99
[2024-05-16 03:59] LABS: Basophils # (auto) 0 10 ^3/uL (0-0.2); Basophils % (auto) 0.1 % (0.0-2.0); Eosinophils # (auto) 0 10 ^3/uL (0-0.8); Hemoglobin 8.5 g/dL (13.5-17.5); Monocytes # (auto) 1.1 10 ^3/uL (0-1.3); Neutrophils # (auto) 11.5 10 ^3/uL (1.6-8.6); Neutrophils % (auto) 84.2 % (37.0-80.0)
[2024-05-16 04:00] LABS: Anion Gap 12 (5-15); Calcium 8.8 mg/dL (8.7-10.4); Hematocrit 28.1 % (41.0-53.0); Lymphocytes % (auto) 7.7 % (10.0-50.0); Mean Corpuscular Hemoglobin 29.5 pg (28.0-32.0); Mean Corpuscular Hgb Conc. 30.4 g/dL (32.0-36.0); Mean Corpuscular Volume 97.1 fL (80.0-100.0); Nucleated Red Blood Cells % 0.6 %; Platelet Count (auto) 188 10^3/uL (140-450); Potassium 4.1 mmol/L (3.5-5.1); Red Blood Cells 2.89 10^6/uL (4.5-5.90); Red Cell Distribution Width 22.6 % (11.8-14.3); Sodium 143 mmol/L (136-145); White Blood Cell 13.6 10^3/uL (4.4-10.8)
[2024-05-16 04:04] LABS: BUN/Creatinine Ratio 19.1 (10.0-20.0)
[2024-05-16 04:09] LABS: Alanine Aminotransferase 54 U/L (7-40); Albumin 2.7 g/dL (3.2-4.8); Alkaline Phosphatase 234 U/L (46-116); Aspartate Aminotransferase 118 U/L (13-40); Bilirubin, Total 16.5 mg/dL (0.2-1.0); Blood Urea Nitrogen 69 mg/dL (9-23); Carbon Dioxide 19 mmol/L (20-31); Chloride 112 mmol/L (98-107); Glucose 200 mg/dL (74-106); Total Protein 5.6 g/dL (5.7-8.2)
--- NOTE | 2024-05-16 04:46 | DVH ---
CHEST RADIOGRAPH Indication: ET tube placement confirmation. Technique: Single frontal view of the chest was obtained Comparison: XY CHEST XRAY 1 VIEW on DOS: 05/15/24 FINDINGS: Lines and Tubes: Right PICC terminates in the superior vena cava. The endotracheal tube terminates 4 .1 cm above the jim. Left PICC terminates in the superior vena cava. Lungs: Bilateral interstitial prominence. Patchy bilateral airspace disease. Pleura: No effusion. No pneumothorax. Cardiomediastinal contours: Unremarkable Bones: No acute osseous abnormality. IMPRESSION: 1. Support lines and tubes in appropriate position. ET tube terminates 4.1 cm above the jim. 2. Bilateral interstitial prominence and patchy bilateral airspace disease. Findings may reflect brunilda ma or pneumonia.
--- NOTE | 2024-05-16 06:23 | DVHPNRES ---
Progress Note Date Seen: May 16, 2024 Resident Creating Document: JONNY KENNEDY Medical Necessity Reason Pt with a Central, PICC or Fol: Yes The following are medically ne: PICC Line, Mcduffie Catheter Reason for mcduffie catheter: Strict I&O Subjective Review of Systems Patient is 63 years old male with past medical history of cirrhosis of liver, hepatitis C infection, liver shunt, chronic pain, CHF, diabetes mellitus, UTI, prostate cancer presented to the [facility] for evaluation of drug overdose. Information was gathered from reviewing the chart and talking to patient's family. As per patient's patient was found gargling and unresponsive in a car, possibly overdose of morphine, so EMS was called. As per patient might have overdosed with morphine, he had 90 of morphine which was reduced to 56 unit before arrival. On arrival of the EMS patient was given Narcan and woke up but unable to recall what happened. Initial lab workup revealed WBC 5.4, hemoglobin 9.7, hematocrit 32.2, platelets 88,000, sodium 141, potassium 4.9, BUN 23, creatinine 1.73, GFR 44, glucose 112, AST 105, ALT 65, troponin 454, ammonia 84. Troponin I elevated for 450> 548> 554, BNP 504.68. UDS positive for amphetamine, opiates. Urinalysis positive for urinary tract infection leukocyte esterase 3+, RBC 8, WBC 193, bacteria moderate.. ABG on 05/07/2024 revealed pH 7.11, pCO2 65.3, PO2 91.8, bicarbonate 20.7. Chest x-ray revealing cardiomegaly with pulmonary vascular congestion. CXR on 05/06/2024 revealed- Cardiomegaly with pulmonary vascular congestion. On 05/07/2024 CT abdomen and pelvis revealed-1. No acute findings identified. Ventral hernia seen in the lower abdomen containing multiple loops of nonobstructed small- bowel. Cirrhotic liver.Splenomegaly. Trace abdominopelvic ascites. CT head on 05/07/2024 revealed- No acute intracranial hemorrhage, midline shift or mass effect. Echo 2D on 07/03/2023-Normal left ventricular size and dimension. LVEF- 55%. There is a grade 1 diastolic dysfunction. Normal right ventricular size and dimension. Normal rightt ventricular systolic function. Patient was admitted at [facility] in July 06, 2023 due to GI bleeding, cirrhosis of liver he had hepatitis-C, cellulitis of the left lower limb, MRSA, blood culture Klebsiella oxytocia Streptococcus mitis, wound culture Enterococcus faecalis, MRSA October 05, 2021, due to sepsis, Streptococcus agalactiae-suspected prosthetic joint infection November 05, 2020. Ascites, hepatitis-C infection, cellulitis of the left lower extremity PMHCancer, cirrhosis of liver, hepatitis C infection, liver shunt, chronic pain, CHF, diabetes mellitus, UTI, prostate cancer PSH-Hernia Repair, left leg surgery has nail on it Family History-Reviewed, noncontributory to the management of this case. Past Social History-The patient lives at home, smokes cigarettes less than 1 pack per day, denies alcohol or illicit drugs abuse. -home medications ergo cholecalciferol, Lasix 20 mg b.i.d., gabapentin 300 mg q.8h, insulin glargine 15 units subcutaneously b.i.d., lactulose 30 mL p.r.n., morphine sulfate, rifaximin 550 b.i.d., spironolactone 50 daily Patient was seen today for clinical evaluation. Labs and chart reviewed Overnight blood pressure ranging from 93-140/46 -57, Pulse 87-100, temperature is 7.3-99.1 I/O- intake 2971, output 50, positive balance 2921 Lab revealed ABG- MRSA screening negative, respiratory culture no growth Blood culture no growth Patient was seen by licensed audiologist, recommendation reviewed and appreciated Discontinued you ertapenem, ordered meropenem, ordered Reglan 5 mg IV q.8h CXR- Bilateral interstitial prominence and patchy bilateral airspace disease. Findings may reflect edema or pneumonia. Patient on Levophed , midazolam , fentanyl ABG PH 7.27, PCO2 39.2, PO2 68.7, HCO3- 17.8 WBC 5.4> 6.3> 4.0> 3.6> 4.4> 3.6> 2.9> 3.6> 6.0> 10.2> 16.5> 13.6 Hemoglobin 9.7> 9.7> 8.8> 8.2> 7.7> 7.8> 7.6> 8.0> 8.6> 9.3>> 8.7> 9.4> 8.5 Platelet 88> 110> 81> 72> 65> 72> 72> 75> 69> 109> 98> 158> 188 Sodium 141> 142> 148> 149> 154> 155> 151> 147> 145> 147> 144> 143 Potassium 4.9> 4.7> 3.8> 3.9> 4.1> 3.5> 3.2> 4.1>> 4.3 4.2> 4.7> 4.1 BUN 23>> 27> 28> 29> 28> 24> 19> 17> 24> 27> 43> 69 Serum creatinine 1.73> 1.66> 1.25> 1.34> 1.36> 1.14> 1.06> 1.07> 1.41> 1.33> 2.31> 3.62 Lactic acid 2.4> 2.0> 4.0> 4.7 INR 1.40> 1.30> 1.39> 1.35> 1.35> 1.54> 1.5> 1.48 Total bilirubin- 6.0> 4.7> 5.9> 7.0> 7.6> 7.8> 8.4> 10.0> 12.1> 16.5 AST 105> 38> 84> 80> 80> 86> 95> 93> 88> 118 ALT-65> 70> 63> 59> 55> 54> 53> 52>> 56> 49>54 Alkaline phosphatase 287> 276> 263> 237> 237> 242> 269> 229> 234 Ammonia 84> 10> 41> 16> 30> 41> 71> 82> 36 Albumin 3.3> 2.9> 2.9> 2.9> 2.8> 2.9> > 3.0 >2.6> 2.7 Urine culture on 05/07/2024 preliminary >100,000 CFU/mL Klebsiella pneumoniae ESBL, on meropenem 05/08/2024- the patient was noted to go into an atrial fibrillation with rapid ventricular response. ER staff administered diltiazem 20 mg IV once. [id number] VASc score: 1 point, HAS-BLED: score: 2 points. 05/08/2024-blood culture preliminary no growth MRSA screening negative Provider Called and spoke to patient's Lorna, , discussed patient's current medical condition, plan of care and answered her questions Objective vital signs Vital Sign Date Time Temp Pulse Resp B/P (MAP) Pulse Ox O2 Delivery O2 Flow Rate FiO2 05/16/24 06:02 89 26 136/57 (83) 93 40 05/16/24 00:00 98.8 98.8 05/16/24 00:00 Mechanical Ventilator+ 05/14/24 08:00 60 Total Intake and Output 05/15/24 05/15/24 05/16/24 15:00 23:00 07:00 Intake Total 1455.50 ml 1160.50 ml 149.75 ml Output Total 50 ml Balance 1455.50 ml 1110.50 ml 149.75 ml medications Current Medications Medications Dose Ordered Sig/Kenisha Route Start Time Stop Time Status Last Admin Dose Admin Sodium Chloride 10 ml Q8HR IV 05/07/24 06:00 05/15/24 20:39 10 ML Ondansetron HCl 4 mg Q4HP PRN IV 05/06/24 22:15 Docusate Sodium 100 mg BIDPRN PRN PO 05/06/24 22:15 Pantoprazole Sodium 40 mg BID IV 05/08/24 22:00 05/15/24 20:39 40 MG Rifaximin 550 mg BID PO 05/09/24 22:00 05/15/24 20:40 550 MG Ertapenem 1 gm/ Sodium Chloride 50 ml @ 100 mls/hr DAILY IV 05/10/24 10:00 05/15/24 10:54 100 MLS/HR Methadone HCl 10 mg Q8HR PO 05/09/24 22:00 05/15/24 20:40 10 MG Thiamine HCl 100 mg DAILY IV 05/10/24 10:00 05/15/24 10:38 100 MG Flecainide Acetate 100 mg Q12HR PO 05/09/24 22:00 05/15/24 20:40 100 MG Folic Acid 1 mg DAILY PO 05/11/24 10:00 05/15/24 10:39 1 MG Diagnostic Test (Pha) 1 strip Q6HR 05/10/24 18:00 05/16/24 00:09 1 STRIP Insulin Human Regular FOLLOW SLIDING SCALE Q6HR SC 05/10/24 18:00 05/16/24 00:15 4 UNITS Dextrose 50 ml UD IV 05/10/24 17:15 Haloperidol Lactate 5 mg Q8HP PRN IM 05/10/24 19:15 05/12/24 12:42 5 MG Albuterol 2.5 mg Q6HPRN PRN NEB 05/11/24 06:30 05/15/24 12:51 2.5 MG Ipratropium [place] 0.5 mg Q6HPRN PRN NEB 05/11/24 06:30 05/15/24 12:52 0.5 MG Enteral Nutritional Formula 1,000 ml 30ML/HR GT 05/12/24 12:45 05/15/24 20:42 1,000 ML Lactulose 30 ml TID NG 05/12/24 22:00 05/15/24 20:40 30 ML Phenylephrine HCl 250 ml @ 30 mls/hr Q8H20M IV 05/13/24 14:15 05/15/24 09:24 48.75 MLS/HR Sodium Chloride 10 ml QSHIFT@10,22 IV 05/13/24 22:00 05/15/24 20:39 10 ML Sodium Chloride 1,000 ml @ 75 mls/hr [id number] IV 05/13/24 19:45 05/16/24 04:08 75 MLS/HR Norepinephrine Bitartrate 250 ml @ 3.75 mls/hr Q24H IV 05/14/24 04:45 05/16/24 04:08 48.75 MLS/HR Midazolam HCl 50 ml @ 1 mls/hr Q24H IV 05/14/24 04:45 05/16/24 04:07 6 MLS/HR Fentanyl Citrate 250 ml @ 2.5 mls/hr Q24H IV 05/14/24 04:45 05/15/24 18:38 20 MLS/HR Albuterol 2.5 mg Q4HR NEB 05/15/24 14:00 05/16/24 06:01 2.5 MG Ipratropium [place] 0.5 mg Q4HR NEB 05/15/24 14:00 05/16/24 06:01 0.5 MG Hydrocortisone Sodium Succinate 100 mg Q8HR IV 05/15/24 22:00 05/15/24 20:39 100 MG Examination General examination- HEENT- PEERLA, no acute nasal discharge Cardiovascular- S1-S2 audible, rate and rhythm regular, no murmur Respiratory- CTAB, no wheeze or rhonchi Gastrointestinal-nontender, bowel sound+. Abdomen distended+, abdominal hernia noted Musculoskeletal-no acute joint swelling or tenderness or redness# Lower extremity- + bilateral leg edema+, hand swelling+ Psychiatry- drowsy, dizzy Skin- bilateral lower extremity skin pigmentation laboratory and microbiology Laboratory Tests 05/16/24 03:00 Test 05/16/24 03:00 Range/Units Serum Glucose 200 H 74-106 mg/dL Microbiology Date/Time Source Procedure Growth Status 05/13/24 14:00 Nose MRSA Screen - Final Complete 05/13/24 13:55 Sputum Gram Stain - Final Resulted 05/13/24 13:55 Sputum Respiratory Culture - Preliminary Resulted 05/08/24 08:45 Blood Blood Culture - Final NO GROWTH AFTER 5 DAYS OF INCUBATION. Complete 05/07/24 01:30 Voided Urine Urine Culture - Final Klebsiella pneumoniae - ESBL Complete Problem List/Assessment/Plan Problem List/Assessment/Plan Assessment and plan Neurology -hepatic encephalopathy/toxic encephalopathy/metabolic encephalopathy due to cirrhosis of liver Septic shock -substance abuse -amphetamine -patient on mechanical ventilation, on sedation -avoid dehydration and nephrotoxic and hepatotoxic Cardiovascular -Atrial fibrillation with rapid ventricular response, new onset -CHF likely diastolic, LVEF 55%, -acute pulmonary edema -NSTEMI type 2 likely demand led ischemia -continue current management Respiratory -bilateral aspiration pneumonia -acute hypoxic respiratory failure likely due to pneumonia Gram-positive versus Gram-negative Acute hypercarbic respiratory failure -continue current management Gastrointestinal -hepatic encephalopathy -hepatitis-C positive -cirrhosis of liver -Hepatitis-C decompensated liver cirrhosis with anasarca, - trace ascites, coagulopathy, -melena -transaminitis -suspected spontaneous bacterial peritonitis --continue rifaximin Continue ertapenem IV as prescribed -avoid dehydration and nephrotoxic and hepatotoxic drugs -status post gastroenterology consult Genitourinary/renal -hepatorenal syndrome - dehydration and hepatotoxic and nephrotoxic drugs Infectious -septic shock due to UTI/pneumonia -suspected spontaneous bacterial peritonitis -Urine culture on 05/07/2024 preliminary >100,000 CFU/mL Klebsiella pneumoniae ESBL Continue IV ertapenem as prescribed Supervisor [place] -pancytopenia likely due to hypersplenism -hypersplenism -anemia -thrombocytopenia -leukopenia -monitor CBC Metabolic or endocrine -Metabolic acidosis -hypernatremia -hyper ammonia -obesity, BMI 36.4 -substance abuse, amphetamine Skin or elementary Skin in pigmentation on the bilateral lower extremity Mcduffie's Drips-Versed, fentanyl, ETT PICC line Goals of care, Code status ; discussed with >15 minutes PUD prophylaxis: Pantoprazole DVT prophylaxis: SCD Plan discussed with Dr. Amaro , nursing staff, Total time spent on patient evaluation, chart review, assessment and plan, Critical time spent including mechanical ventilation excluding procedure 81 minutes Plan discussed with: Patient, Spouse (RN), Other (RN) My Orders My Orders Orders - JONNY KENNEDY Procedure Category Date Status Time * Wound Consult CONS 05/16/24 Transmitted Chest Xray 1 View XY 05/16/24 Resulted 00:57 Dietary Evaluation Review Comments: 1. Per RN, pt is able to drink liquid but unable to manage jello. Will Downgrade his CCHO-60 diet to pureed texture. 2. offer Glucern BID if PO is still poor 3. elevated BUN, f/u and reassess after pt has a GI and nephrology consult. 4. consider clinimix as a form of protein supplementation as pt has very low albumin. Expected Outcomes/Goals: Gradual wt loss, better DM control. Date of Service: May 16, 2024 Billing Provider: JUVENAL AMARO MD Common Visit Codes: 31026-RIZOEURR CARE 30-74 MIN, 52871-NXHJHJCJ CARE-EACH +30MIN JONNY KENNEDY May 16, 2024 06:23 JUVENAL AMARO MD May 17, 2024 16:25
[2024-05-16 06:46] LABS: Base Excess -8.3 mmol/L (-2.0-3.0)
[2024-05-16] MEDS: LACTULOSE 20Gm/30ML SOLN NG SCH (08:04)
[2024-05-16] MEDS: METOCLOPRAMIDE HCL 5MG/ml INJ 2ml VIAL IV ONE ×2 (08:04→15:23)
[2024-05-16] MEDS: BUMETANIDE 2.5mg/10ml (0.25 mg/ml) INJ IV ONE (08:45)
[2024-05-16 08:50] LABS: INR 1.96 (0.9-1.15); Prothrombin Time 19.4 sec (9.3-11.8)
[2024-05-16 09:47] LABS: Lactic Acid w/Reflex 2.7 mmol/L (0.4-2.0)
--- NOTE | 2024-05-16 10:23 | DVHPN2 ---
Progress Note Date Seen: May 16, 2024 Medical Necessity Reason Pt with a Central, PICC or Fol: Yes The following are medically ne: Mcduffie Catheter Reason for mcduffie catheter: Strict I&O Subjective Patient reports: Other Review of Systems: Deferred Objective vital signs Vital Sign Date Time Temp Pulse Resp B/P (MAP) Pulse Ox O2 Delivery O2 Flow Rate FiO2 05/16/24 10:15 104/43 05/16/24 09:45 83 26 93 40 05/16/24 06:00 Mechanical Ventilator+ 05/16/24 04:00 99.5 99.5 05/14/24 08:00 60 Total Intake and Output 05/15/24 05/15/24 05/16/24 14:59 22:59 06:59 Intake Total 1504.25 ml 1168.00 ml 1344.00 ml Output Total 50 ml 200 ml Balance 1504.25 ml 1118.00 ml 1144.00 ml medications Current Medications Medications Dose Ordered Sig/Kenisha Route Start Time Stop Time Status Last Admin Dose Admin Sodium Chloride 10 ml Q8HR IV 05/07/24 06:00 05/16/24 06:19 10 ML Ondansetron HCl 4 mg Q4HP PRN IV 05/06/24 22:15 Docusate Sodium 100 mg BIDPRN PRN PO 05/06/24 22:15 Pantoprazole Sodium 40 mg BID IV 05/08/24 22:00 05/16/24 09:52 40 MG Rifaximin 550 mg BID PO 05/09/24 22:00 05/16/24 09:54 550 MG Ertapenem 1 gm/ Sodium Chloride 50 ml @ 100 mls/hr DAILY IV 05/10/24 10:00 05/15/24 10:54 100 MLS/HR Methadone HCl 10 mg Q8HR PO 05/09/24 22:00 05/16/24 06:19 10 MG Thiamine HCl 100 mg DAILY IV 05/10/24 10:00 05/16/24 09:54 100 MG Flecainide Acetate 100 mg Q12HR PO 05/09/24 22:00 05/16/24 09:54 100 MG Folic Acid 1 mg DAILY PO 05/11/24 10:00 05/16/24 09:54 1 MG Diagnostic Test (Pha) 1 strip Q6HR 05/10/24 18:00 05/16/24 06:20 1 STRIP Insulin Human Regular FOLLOW SLIDING SCALE Q6HR SC 05/10/24 18:00 05/16/24 06:32 4 UNITS Dextrose 50 ml UD IV 05/10/24 17:15 Haloperidol Lactate 5 mg Q8HP PRN IM 05/10/24 19:15 05/12/24 12:42 5 MG Albuterol 2.5 mg Q6HPRN PRN NEB 05/11/24 06:30 05/15/24 12:51 2.5 MG Ipratropium [place] 0.5 mg Q6HPRN PRN NEB 05/11/24 06:30 05/15/24 12:52 0.5 MG Enteral Nutritional Formula 1,000 ml 30ML/HR GT 05/12/24 12:45 05/15/24 20:42 1,000 ML Phenylephrine HCl 250 ml @ 30 mls/hr Q8H20M IV 05/13/24 14:15 05/15/24 09:24 48.75 MLS/HR Sodium Chloride 10 ml QSHIFT@10,22 IV 05/13/24 22:00 05/16/24 09:54 10 ML Norepinephrine Bitartrate 250 ml @ 3.75 mls/hr Q24H IV 05/14/24 04:45 05/16/24 10:15 45 MLS/HR Midazolam HCl 50 ml @ 1 mls/hr Q24H IV 05/14/24 04:45 05/16/24 09:33 6 MLS/HR Fentanyl Citrate 250 ml @ 2.5 mls/hr Q24H IV 05/14/24 04:45 05/16/24 06:37 20 MLS/HR Albuterol 2.5 mg Q4HR NEB 05/15/24 14:00 05/16/24 06:01 2.5 MG Ipratropium [place] 0.5 mg Q4HR NEB 05/15/24 14:00 05/16/24 09:50 0.5 MG Hydrocortisone Sodium Succinate 100 mg Q8HR IV 05/15/24 22:00 05/16/24 06:37 100 MG Lactulose 30 ml Q4HR NG 05/16/24 07:00 05/16/24 09:52 30 ML Bumetanide 1 mg BIDD IV 05/16/24 18:00 Examination: GENERAL:Abnormal, MSK:Abnormal (edema ), SKIN:Abnormal, NEURO:Abnormal laboratory and microbiology Laboratory Tests 05/16/24 03:00 Test 05/16/24 03:00 Range/Units Serum Glucose 200 H 74-106 mg/dL Microbiology Date/Time Source Procedure Growth Status 05/15/24 09:22 Blood Blood Culture - Preliminary NO GROWTH AFTER 24 HOURS OF INCUBATION. Resulted 05/13/24 14:00 Nose MRSA Screen - Final Complete 05/13/24 13:55 Sputum Gram Stain - Final Resulted 05/13/24 13:55 Sputum Respiratory Culture - Preliminary Resulted 05/07/24 01:30 Voided Urine Urine Culture - Final Klebsiella pneumoniae - ESBL Complete Problem List/Assessment/Plan Problem List/Assessment/Plan Acute kidney injury hemodynamically mediated in the setting of hypotension and shock +contrast Acute respiratory failure in the setting of aspiration pneumonia Hepatic encephalopathy Decompensated liver cirrhosis \ Acute methamphetamine intoxication Hepatitis-C Multidrug resistant ESBL urinary tract infection Aspiration pneumonia recs levo 22 mcg dc ivf bumex iv as ordered renal function worsening,uop going down d/w RN Plan discussed with: Other My Orders My Orders Orders - YANELY CHEATHAM MD Procedure Category Date Status Time Bumetanide Injection PHA 05/16/24 In Process (Bumex Injection) 18:00 Dietary Evaluation Review Comments: 1. Per RN, pt is able to drink liquid but unable to manage jello. Will Downgrade his CCHO-60 diet to pureed texture. 2. offer Glucern BID if PO is still poor 3. elevated BUN, f/u and reassess after pt has a GI and nephrology consult. 4. consider clinimix as a form of protein supplementation as pt has very low albumin. Expected Outcomes/Goals: Gradual wt loss, better DM control. Critical Care Time (mins): 36 YANELY CHEATHAM MD May 16, 2024 10:23
[2024-05-16] MEDS: NOREPINEPHRINE BITARTRATE 32 MG in SODIUM CHL 0.9% 218 ML IV SCH (11:15)
[2024-05-16] MEDS: MEROPENEM 1GM IVPB 50 ML IV ONE (15:23)
[2024-05-16] MEDS: BUMETANIDE 1mg/4ml VIAL (0.25mg/ml) IV SCH (17:26)
[2024-05-16] MEDS: AMIODARONE BOLUS KIT 100 ML IV ONE (19:50)
[2024-05-16] MEDS: AMIODARONE 360mg/200mL PREMIX 200 ML IV ONE (19:57)
[2024-05-16] MEDS: PHENYLEPHRINE INJ 80 MG in SODIUM CHL 0.9% 242 ML IV SCH (20:00)
--- NOTE | 2024-05-16 22:12 | DVHPN2 ---
Progress Note - Dictate Date Seen: May 16, 2024 Medical Necessity Reason Pt with a Central, PICC or Fol: Yes The following are medically ne: PICC Line, Mcduffie Catheter Reason for mcduffie catheter: Strict I&O Subjective Patient has persistent rise in his liver enzymes Bilirubin level is up to 16 vital signs Vital Sign Date Time Temp Pulse Resp B/P (MAP) Pulse Ox O2 Delivery O2 Flow Rate FiO2 05/16/24 20:45 97.2 108 26 105/51 (69) 91 97.2 05/16/24 20:02 35 05/16/24 20:00 Mechanical Ventilator+ 05/14/24 08:00 60 Total Intake and Output 05/15/24 05/15/24 05/16/24 15:00 23:00 07:00 Intake Total 1455.50 ml 1160.50 ml 1340.25 ml Output Total 50 ml 200 ml Balance 1455.50 ml 1110.50 ml 1140.25 ml medications Current Medications Medications Dose Ordered Sig/Kenisha Route Start Time Stop Time Status Last Admin Dose Admin Sodium Chloride 10 ml Q8HR IV 05/07/24 06:00 05/16/24 13:18 10 ML Ondansetron HCl 4 mg Q4HP PRN IV 05/06/24 22:15 Docusate Sodium 100 mg BIDPRN PRN PO 05/06/24 22:15 Pantoprazole Sodium 40 mg BID IV 05/08/24 22:00 05/16/24 09:52 40 MG Rifaximin 550 mg BID PO 05/09/24 22:00 05/16/24 09:54 550 MG Thiamine HCl 100 mg DAILY IV 05/10/24 10:00 05/16/24 09:54 100 MG Flecainide Acetate 100 mg Q12HR PO 05/09/24 22:00 05/16/24 09:54 100 MG Folic Acid 1 mg DAILY PO 05/11/24 10:00 05/16/24 09:54 1 MG Diagnostic Test (Pha) 1 strip Q6HR 05/10/24 18:00 05/16/24 17:27 1 STRIP Insulin Human Regular FOLLOW SLIDING SCALE Q6HR SC 05/10/24 18:00 05/16/24 17:40 4 UNITS Dextrose 50 ml UD IV 05/10/24 17:15 Albuterol 2.5 mg Q6HPRN PRN NEB 05/11/24 06:30 05/15/24 12:51 2.5 MG Ipratropium [place] 0.5 mg Q6HPRN PRN NEB 05/11/24 06:30 05/15/24 12:52 0.5 MG Enteral Nutritional Formula 1,000 ml 30ML/HR GT 05/12/24 12:45 05/15/24 20:42 1,000 ML Sodium Chloride 10 ml QSHIFT@10,22 IV 05/13/24 22:00 05/16/24 09:54 10 ML Midazolam HCl 50 ml @ 1 mls/hr Q24H IV 05/14/24 04:45 05/16/24 16:47 6 MLS/HR Fentanyl Citrate 250 ml @ 2.5 mls/hr Q24H IV 05/14/24 04:45 05/16/24 16:49 20 MLS/HR Albuterol 2.5 mg Q4HR NEB 05/15/24 14:00 05/16/24 18:41 2.5 MG Ipratropium [place] 0.5 mg Q4HR NEB 05/15/24 14:00 05/16/24 18:41 0.5 MG Lactulose 30 ml Q4HR NG 05/16/24 07:00 05/16/24 17:26 30 ML Bumetanide 1 mg BIDD IV 05/16/24 18:00 05/16/24 17:26 1 MG Phenylephrine HCl 80 mg/Sodium Chloride 250 ml @ 7.5 mls/hr Q24H IV 05/16/24 11:15 Norepinephrine Bitartrate 32 mg/ Sodium Chloride 250 ml @ 0.938 mls/ hr Q24H IV 05/16/24 11:15 05/16/24 11:15 9.375 MLS/HR Metoclopramide HCl 5 mg Q8HR IV 05/16/24 22:00 Meropenem 50 ml @ 17 mls/hr Q8HR IV 05/16/24 22:00 05/18/24 00:57 Meropenem 50 ml @ 17 mls/hr Q12HR IV 05/18/24 10:00 objective General: Intubated sedated HEENT: NC/AT EOMI dry mucous membranes Heart: Tachycardic regular rhythm Abdomen: Soft nontender nondistended Extremity: No clubbing cyanosis or edema laboratory and microbiology Laboratory Tests 05/16/24 03:00 Test 05/16/24 03:00 Range/Units Serum Glucose 200 H 74-106 mg/dL Problems(with codes): (1) Aspiration pneumonia (2) MRSA (methicillin resistant Staphylococcus aureus) septicemia (3) Hepatitis C (4) Liver failure (5) Cirrhosis (6) Ascites Prognosis Plan Methylprednisolone 40 mg q.12 hours Ursodiol 300 mg p.o. twice a day Discuss with show girl or hospitalist team if the amiodarone can be discontinued as that might be making his liver disease get worse Monitor labs and I will follow up patient with you Dietary Evaluation Review Comments: 1. Per RN, pt is able to drink liquid but unable to manage jello. Will Downgrade his CCHO-60 diet to pureed texture. 2. offer Glucern BID if PO is still poor 3. elevated BUN, f/u and reassess after pt has a GI and nephrology consult. 4. consider clinimix as a form of protein supplementation as pt has very low albumin. Expected Outcomes/Goals: Gradual wt loss, better DM control. Plan discussed with: Other (None) PAULINA BAINS MD May 16, 2024 22:12
[2024-05-16] MEDS: MEROPENEM 1GM IVPB 50 ML IV SCH (22:21)
[2024-05-16] MEDS: METOCLOPRAMIDE HCL 5MG/ml INJ 2ml VIAL IV SCH (22:21)
[2024-05-17] VITALS (105 sets, daily range): BP systolic 100–155; BP diastolic 51–88; PULSE 92–109; RESP 24–27; TEMP 97.3–97.9; O2SAT 90–99
[2024-05-17] MEDS: AMIODARONE 360mg/200mL PREMIX 200 ML IV SCH (01:48)
[2024-05-17 04:07] LABS: INR 1.71 (0.9-1.15); Prothrombin Time 17.2 sec (9.3-11.8)
[2024-05-17 04:14] LABS: Anion Gap 9 (5-15); Basophils # (auto) 0 10 ^3/uL (0-0.2); Calcium 8.9 mg/dL (8.7-10.4); Carbon Dioxide 24 mmol/L (20-31); Eosinophils # (auto) 0 10 ^3/uL (0-0.8); Eosinophils % (auto) 0.1 % (0.0-7.0); Hematocrit 27.1 % (41.0-53.0); Hemoglobin 8.7 g/dL (13.5-17.5); Lymphocytes # (auto) 0.5 10 ^3/uL (0.4-5.4); Lymphocytes % (auto) 3.8 % (10.0-50.0); Mean Corpuscular Hemoglobin 29.5 pg (28.0-32.0); Mean Corpuscular Hgb Conc. 32.2 g/dL (32.0-36.0); Mean Corpuscular Volume 91.9 fL (80.0-100.0); Monocytes # (auto) 1.3 10 ^3/uL (0-1.3); Monocytes % (auto) 10.3 % (0.0-12.0); Neutrophils # (auto) 10.7 10 ^3/uL (1.6-8.6); Neutrophils % (auto) 85.8 % (37.0-80.0); Nucleated Red Blood Cells % 0.2 %; Platelet Count (auto) 140 10^3/uL (140-450); Red Blood Cells 2.96 10^6/uL (4.5-5.90); Red Cell Distribution Width 23.5 % (11.8-14.3); Sodium 144 mmol/L (136-145); White Blood Cell 12.5 10^3/uL (4.4-10.8)
[2024-05-17 04:15] LABS: BUN/Creatinine Ratio 25.6 (10.0-20.0)
[2024-05-17 04:18] LABS: Alanine Aminotransferase 61 U/L (7-40); Albumin 2.7 g/dL (3.2-4.8); Alkaline Phosphatase 239 U/L (46-116); Aspartate Aminotransferase 137 U/L (13-40); Bilirubin, Total 17.4 mg/dL (0.2-1.0); Chloride 111 mmol/L (98-107); Glucose 161 mg/dL (74-106); Potassium 2.9 mmol/L (3.5-5.1); Total Protein 5.9 g/dL (5.7-8.2)
[2024-05-17 04:19] LABS: Blood Urea Nitrogen 86 mg/dL (9-23)
[2024-05-17] MEDS: POTASSIUM CHL 20MEQ/50ML 50 ML IV ONE ×2 (05:04→22:07)
[2024-05-17 05:14] LABS: Large Platelets FEW; Platelet Estimate Adequate
--- NOTE | 2024-05-17 05:14 | DVH ---
EXAM: XR Chest, 1 View CLINICAL INDICATION: pna TECHNIQUE: Frontal view of the chest. COMPARISON: XY CHEST XRAY 1 VIEW on DOS: 05/16/24, XY CHEST XRAY 1 VIEW on DOS: 05/15/24, XY CHEST XR AY 1 VIEW on DOS: 05/14/24, XY CHEST XRAY 1 VIEW on DOS: 05/13/24, XY CHEST PORTABLE on DOS: 05/11/24 FINDINGS: LUNGS AND PLEURAL SPACES: Bibasilar atelectasis or pneumonia. No pneumothorax. HEART: Unremarkable. No cardiomegaly. MEDIASTINUM: Unremarkable. Normal mediastinal contour. BONES/JOINTS: Unremarkable. No acute fracture. TUBES, LINES AND DEVICES: Stable tubes and lines. OTHER FINDINGS: . .. IMPRESSION: Bibasilar atelectasis or pneumonia.
[2024-05-17 07:18] LABS: Base Excess -5.4 mmol/L (-2.0-3.0)
--- NOTE | 2024-05-17 07:56 | DVHPNRES ---
Progress Note Date Seen: May 17, 2024 Resident Creating Document: JONNY KENNEDY Medical Necessity Reason Pt with a Central, PICC or Fol: Yes The following are medically ne: PICC Line, Mcduffie Catheter Reason for mcduffie catheter: Strict I&O Subjective Review of Systems Patient is 63 years old male with past medical history of cirrhosis of liver, hepatitis C infection, liver shunt, chronic pain, CHF, diabetes mellitus, UTI, prostate cancer presented to the [facility] for evaluation of drug overdose. Information was gathered from reviewing the chart and talking to patient's family. As per patient's patient was found gargling and unresponsive in a car, possibly overdose of morphine, so EMS was called. As per patient might have overdosed with morphine, he had 90 of morphine which was reduced to 56 unit before arrival. On arrival of the EMS patient was given Narcan and woke up but unable to recall what happened. Initial lab workup revealed WBC 5.4, hemoglobin 9.7, hematocrit 32.2, platelets 88,000, sodium 141, potassium 4.9, BUN 23, creatinine 1.73, GFR 44, glucose 112, AST 105, ALT 65, troponin 454, ammonia 84. Troponin I elevated for 450> 548> 554, BNP 504.68. UDS positive for amphetamine, opiates. Urinalysis positive for urinary tract infection leukocyte esterase 3+, RBC 8, WBC 193, bacteria moderate.. ABG on 05/07/2024 revealed pH 7.11, pCO2 65.3, PO2 91.8, bicarbonate 20.7. Chest x-ray revealing cardiomegaly with pulmonary vascular congestion. CXR on 05/06/2024 revealed- Cardiomegaly with pulmonary vascular congestion. On 05/07/2024 CT abdomen and pelvis revealed-1. No acute findings identified. Ventral hernia seen in the lower abdomen containing multiple loops of nonobstructed small- bowel. Cirrhotic liver.Splenomegaly. Trace abdominopelvic ascites. CT head on 05/07/2024 revealed- No acute intracranial hemorrhage, midline shift or mass effect. Echo 2D on 07/03/2023-Normal left ventricular size and dimension. LVEF- 55%. There is a grade 1 diastolic dysfunction. Normal right ventricular size and dimension. Normal rightt ventricular systolic function. Patient was admitted at [facility] in July 06, 2023 due to GI bleeding, cirrhosis of liver he had hepatitis-C, cellulitis of the left lower limb, MRSA, blood culture Klebsiella oxytocia Streptococcus mitis, wound culture Enterococcus faecalis, MRSA October 05, 2021, due to sepsis, Streptococcus agalactiae-suspected prosthetic joint infection November 05, 2020. Ascites, hepatitis-C infection, cellulitis of the left lower extremity PMHCancer, cirrhosis of liver, hepatitis C infection, liver shunt, chronic pain, CHF, diabetes mellitus, UTI, prostate cancer PSH-Hernia Repair, left leg surgery has nail on it Family History-Reviewed, noncontributory to the management of this case. Past Social History-The patient lives at home, smokes cigarettes less than 1 pack per day, denies alcohol or illicit drugs abuse. -home medications ergo cholecalciferol, Lasix 20 mg b.i.d., gabapentin 300 mg q.8h, insulin glargine 15 units subcutaneously b.i.d., lactulose 30 mL p.r.n., morphine sulfate, rifaximin 550 b.i.d., spironolactone 50 daily Patient was seen today for clinical evaluation. Labs and chart reviewed Overnight blood pressure ranging from 85-131/-53 65, Pulse 95-109, temperature is 97.2-99.5 I/O- intake 1781, output 2850, negative balance 1068 Lab revealed patient Still on fentanyl, Versed, Levophed ABG-pH 7.37, pCO2 33.9, PO2 80.2, bicarbonate 19.2 CXR- Bilateral interstitial prominence and patchy bilateral airspace disease. Findings may reflect edema or pneumonia. WBC 5.4> 6.3> 4.0> 3.6> 4.4> 3.6> 2.9> 3.6> 6.0> 10.2> 16.5> 13.6> 12.5 Hemoglobin 9.7> 9.7> 8.8> 8.2> 7.7> 7.8> 7.6> 8.0> 8.6> 9.3>> 8.7> 9.4> 8.5> 8.7 Platelet 88> 110> 81> 72> 65> 72> 72> 75> 69> 109> 98> 158> 188> 140> 144 Sodium 141> 142> 148> 149> 154> 155> 151> 147> 145> 147> 144> 143> 144 Potassium 4.9> 4.7> 3.8> 3.9> 4.1> 3.5> 3.2> 4.1>> 4.3 4.2> 4.7> 4.1> 2.9 BUN 23>> 27> 28> 29> 28> 24> 19> 17> 24> 27> 43> 69> 86 Serum creatinine 1.73> 1.66> 1.25> 1.34> 1.36> 1.14> 1.06> 1.07> 1.41> 1.33> 2.31> 3.62> 3.36 Lactic acid 2.4> 2.0> 4.0> 4.7> 2.7> 2.1 INR 1.40> 1.30> 1.39> 1.35> 1.35> 1.54> 1.5> 1.48> 1.71 Total bilirubin- 6.0> 4.7> 5.9> 7.0> 7.6> 7.8> 8.4> 10.0> 12.1> 16.5> 17.4 AST 105> 38> 84> 80> 80> 86> 95> 93> 88> 118> 137 ALT-65> 70> 63> 59> 55> 54> 53> 52>> 56> 49>54> 61 Alkaline phosphatase 287> 276> 263> 237> 237> 242> 269> 229> 234> 239 Ammonia 84> 10> 41> 16> 30> 41> 71> 82> 36> 43> 39 Albumin 3.3> 2.9> 2.9> 2.9> 2.8> 2.9> > 3.0 >2.6> 2.7 > 2.7 Urine culture on 05/07/2024 preliminary >100,000 CFU/mL Klebsiella pneumoniae ESBL, on meropenem 05/08/2024- the patient was noted to go into an atrial fibrillation with rapid ventricular response. ER staff administered diltiazem 20 mg IV once. [id number] VASc score: 1 point, HAS-BLED: score: 2 points. 04/15/2019 MRSA screening negative, 05/13/2024 respiratory culture no growth 05/15/2024 Blood culture no growth 05/08/2024-blood culture preliminary no growth MRSA screening negative Provider Called and spoke to patient's Lorna, , discussed patient's current medical condition, plan of care and answered her questions Objective vital signs Vital Sign Date Time Temp Pulse Resp B/P (MAP) Pulse Ox O2 Delivery O2 Flow Rate FiO2 05/17/24 06:52 99 26 125/59 (81) 94 40 05/17/24 06:00 Mechanical Ventilator+ 05/17/24 04:30 97.7 97.7 Total Intake and Output 05/16/24 05/16/24 05/17/24 15:00 23:00 07:00 Intake Total 555.500 ml 532.22 ml 548.26 ml Output Total 1050 ml 1800 ml Balance 555.500 ml -517.78 ml -1251.74 ml medications Current Medications Medications Dose Ordered Sig/Kenisha Route Start Time Stop Time Status Last Admin Dose Admin Sodium Chloride 10 ml Q8HR IV 05/07/24 06:00 05/17/24 06:00 10 ML Ondansetron HCl 4 mg Q4HP PRN IV 05/06/24 22:15 Docusate Sodium 100 mg BIDPRN PRN PO 05/06/24 22:15 Pantoprazole Sodium 40 mg BID IV 05/08/24 22:00 05/16/24 22:21 40 MG Rifaximin 550 mg BID PO 05/09/24 22:00 05/16/24 22:21 550 MG Thiamine HCl 100 mg DAILY IV 05/10/24 10:00 05/16/24 09:54 100 MG Flecainide Acetate 100 mg Q12HR PO 05/09/24 22:00 05/16/24 22:21 100 MG Folic Acid 1 mg DAILY PO 05/11/24 10:00 05/16/24 09:54 1 MG Diagnostic Test (Pha) 1 strip Q6HR 05/10/24 18:00 05/17/24 06:00 1 STRIP Insulin Human Regular FOLLOW SLIDING SCALE Q6HR SC 05/10/24 18:00 05/17/24 06:14 2 UNITS Dextrose 50 ml UD IV 05/10/24 17:15 Albuterol 2.5 mg Q6HPRN PRN NEB 05/11/24 06:30 05/15/24 12:51 2.5 MG Ipratropium [place] 0.5 mg Q6HPRN PRN NEB 05/11/24 06:30 05/15/24 12:52 0.5 MG Enteral Nutritional Formula 1,000 ml 30ML/HR GT 05/12/24 12:45 05/15/24 20:42 1,000 ML Sodium Chloride 10 ml QSHIFT@10,22 IV 05/13/24 22:00 05/16/24 22:00 10 ML Midazolam HCl 50 ml @ 1 mls/hr Q24H IV 05/14/24 04:45 05/16/24 16:47 6 MLS/HR Fentanyl Citrate 250 ml @ 2.5 mls/hr Q24H IV 05/14/24 04:45 05/16/24 16:49 20 MLS/HR Albuterol 2.5 mg Q4HR NEB 05/15/24 14:00 05/17/24 06:51 2.5 MG Ipratropium [place] 0.5 mg Q4HR NEB 05/15/24 14:00 05/17/24 06:51 0.5 MG Lactulose 30 ml Q4HR NG 05/16/24 07:00 05/17/24 05:59 30 ML Bumetanide 1 mg BIDD IV 05/16/24 18:00 05/16/24 17:26 1 MG Phenylephrine HCl 80 mg/Sodium Chloride 250 ml @ 7.5 mls/hr Q24H IV 05/16/24 11:15 Norepinephrine Bitartrate 32 mg/ Sodium Chloride 250 ml @ 0.938 mls/ hr Q24H IV 05/16/24 11:15 05/16/24 11:15 9.375 MLS/HR Metoclopramide HCl 5 mg Q8HR IV 05/16/24 22:00 05/17/24 05:59 5 MG Meropenem 50 ml @ 17 mls/hr Q8HR IV 05/16/24 22:00 05/18/24 00:57 05/17/24 05:59 17 MLS/HR Meropenem 50 ml @ 17 mls/hr Q12HR IV 05/18/24 10:00 Methylprednisolone Sodium Succinate 40 mg BID IV 05/17/24 10:00 Ursodiol 300 mg BID PO 05/17/24 10:00 Examination General examination- HEENT- PEERLA, no acute nasal discharge Cardiovascular- S1-S2 audible, rate and rhythm regular, no murmur Respiratory- CTAB, no wheeze or rhonchi Gastrointestinal-nontender, bowel sound+. Abdomen distended+, abdominal hernia noted Musculoskeletal-no acute joint swelling or tenderness or redness# Lower extremity- + bilateral leg edema+, hand swelling+ Psychiatry- drowsy, dizzy Skin- bilateral lower extremity skin pigmentation laboratory and microbiology Laboratory Tests 05/17/24 03:30 Test 05/17/24 03:30 Range/Units Serum Glucose 161 H 74-106 mg/dL Microbiology Date/Time Source Procedure Growth Status 05/15/24 09:22 Blood Blood Culture - Preliminary NO GROWTH AFTER 24 HOURS OF INCUBATION. Resulted 05/13/24 14:00 Nose MRSA Screen - Final Complete 05/13/24 13:55 Sputum Gram Stain - Final Complete 05/13/24 13:55 Sputum Respiratory Culture - Final Complete 05/07/24 01:30 Voided Urine Urine Culture - Final Klebsiella pneumoniae - ESBL Complete Problem List/Assessment/Plan Problem List/Assessment/Plan Assessment and plan Neurology -hepatic encephalopathy/toxic encephalopathy/metabolic encephalopathy due to cirrhosis of liver Septic shock -substance abuse -amphetamine -patient on mechanical ventilation, on sedation -avoid dehydration and nephrotoxic and hepatotoxic Cardiovascular -Atrial fibrillation with rapid ventricular response, new onset -CHF likely diastolic, LVEF 60%, -acute pulmonary edema -NSTEMI type 2 likely demand led ischemia -amiodarone drip as per Cardiology recommendation -continue current management Respiratory -bilateral aspiration pneumonia -acute hypoxic respiratory failure likely due to pneumonia Gram-positive versus Gram-negative Acute hypercarbic respiratory failure -continue current management Gastrointestinal -hepatic encephalopathy -hepatitis-C positive -cirrhosis of liver-on [place] shunt placed 10 years before -Hepatitis-C decompensated liver cirrhosis with anasarca, - trace ascites, coagulopathy, -melena -transaminitis -suspected spontaneous bacterial peritonitis --continue rifaximin -continue methylprednisolone as prescribed Continue ertapenem as prescribed -avoid dehydration and nephrotoxic and hepatotoxic drugs -status post gastroenterology consult Genitourinary/renal -hepatorenal syndrome - dehydration and hepatotoxic and nephrotoxic drugs Infectious -septic shock due to UTI/pneumonia -suspected spontaneous bacterial peritonitis -Urine culture on 05/07/2024 preliminary >100,000 CFU/mL Klebsiella pneumoniae ESBL Continue IV meropenem as prescribed [employer] -pancytopenia likely due to hypersplenism -hypersplenism -anemia -thrombocytopenia -leukopenia -monitor CBC Metabolic or endocrine -Metabolic acidosis -hypernatremia -hyper ammonia -obesity, BMI 36.4 -substance abuse, amphetamine Skin or elementary Skin in pigmentation on the bilateral lower extremity Mcduffie's catheter Drips-Versed, fentanyl, ETT PICC line Goals of care, Code status ; discussed with >15 minutes PUD prophylaxis: Pantoprazole DVT prophylaxis: SCD Plan discussed with Dr. Amaro , nursing staff, Total time spent on patient evaluation, chart review, assessment and plan, Critical time spent including mechanical ventilation excluding procedure 87 minutes Plan discussed with: Other (RN) My Orders My Orders Orders - JONNY KENNEDY Procedure Category Date Status Time Chest Portable XY 05/17/24 Resulted 04:00 Abg W/ Co-Ox RT 05/17/24 Logged 05:42 Dietary Evaluation Review Comments: 1. Per RN, pt is able to drink liquid but unable to manage jello. Will Downgrade his CCHO-60 diet to pureed texture. 2. offer Glucern BID if PO is still poor 3. elevated BUN, f/u and reassess after pt has a GI and nephrology consult. 4. consider clinimix as a form of protein supplementation as pt has very low albumin. Expected Outcomes/Goals: Gradual wt loss, better DM control. Date of Service: May 17, 2024 Billing Provider: JUVENAL AMARO MD Common Visit Codes: 03303-[id number] CARE 30-74 MIN, 62156-[id number] CARE-EACH +30MIN JONNY KENNEDY May 17, 2024 07:56 JUVENLA AMARO MD May 28, 2024 20:16
[2024-05-17] MEDS: methylPREDNISolone SOD SUCC 40 MG/ML VL IV SCH ×2 (09:03→21:43)
[2024-05-17] MEDS: URSODIOL 300 MG CAP PO SCH (09:05)
[2024-05-17 10:26] LABS: BUN/Creatinine Ratio 25.8 (10.0-20.0); Carbon Dioxide 24 mmol/L (20-31); Sodium 144 mmol/L (136-145)
[2024-05-17 10:28] LABS: Glucose 156 mg/dL (74-106)
[2024-05-17 10:29] LABS: Blood Urea Nitrogen 81 mg/dL (9-23)
[2024-05-17 10:33] LABS: Anion Gap 7 (5-15)
[2024-05-17 10:35] LABS: Chloride 113 mmol/L (98-107)
[2024-05-17] MEDS: SODIUM CHLORIDE 0.9% 250 ML IV ONE (12:31)
--- NOTE | 2024-05-17 16:34 | DVH ---
CHEST RADIOGRAPH Indication: Pain Technique: Single frontal view of the chest was obtained COMPARISON: XY CHEST PORTABLE on DOS: 05/17/24, XY CHEST XRAY 1 VIEW on DOS: 05/16/24, XY CHEST XRAY 1 V IEW on DOS: 05/15/24, XY CHEST XRAY 1 VIEW on DOS: 05/14/24, XY CHEST XRAY 1 VIEW on DOS: 05/13/24 FINDINGS: Lines and Tubes: Endotracheal tube, right chest port and left PICC in satisfactory position. Lungs: Congestion Pleura: No effusion. No pneumothorax. Cardiomediastinal contours: Unremarkable Bones: Unremarkable IMPRESSION: Lines and tubes in satisfactory position. No significant interval change.
[2024-05-17] MEDS: POLYETHYLENE GLYCOL 17 GM PWDR PO ONE (17:31)
--- NOTE | 2024-05-17 20:51 | DVHPN2 ---
Progress Note - Dictate Date Seen: May 17, 2024 Medical Necessity Reason Pt with a Central, PICC or Fol: Yes The following are medically ne: PICC Line, Mcduffie Catheter Reason for mcduffie catheter: Strict I&O Subjective Patient has persistent rise in his liver enzymes Bilirubin level is up to 17.4 Fi02 35% Patient had high gastric residuals yesterday history of the tube feedings were held Patient was started on Reglan 5 mg IV q.8 hours Today is tube feedings have been resumed at a low rate and we will monitor his residuals vital signs Vital Sign Date Time Temp Pulse Resp B/P (MAP) Pulse Ox O2 Delivery O2 Flow Rate FiO2 05/17/24 20:12 101 26 107/57 (74) 95 35 05/17/24 18:30 97.3 97.3 05/17/24 18:00 Mechanical Ventilator+ Total Intake and Output 05/16/24 05/16/24 05/17/24 15:00 23:00 07:00 Intake Total 555.500 ml 532.22 ml 601.858 ml Output Total 1050 ml 1800 ml Balance 555.500 ml -517.78 ml -1198.142 ml medications Current Medications Medications Dose Ordered Sig/Kenisha Route Start Time Stop Time Status Last Admin Dose Admin Sodium Chloride 10 ml Q8HR IV 05/07/24 06:00 05/17/24 13:12 10 ML Ondansetron HCl 4 mg Q4HP PRN IV 05/06/24 22:15 Docusate Sodium 100 mg BIDPRN PRN PO 05/06/24 22:15 Pantoprazole Sodium 40 mg BID IV 05/08/24 22:00 05/17/24 09:03 40 MG Rifaximin 550 mg BID PO 05/09/24 22:00 05/17/24 09:04 550 MG Thiamine HCl 100 mg DAILY IV 05/10/24 10:00 05/17/24 09:01 100 MG Flecainide Acetate 100 mg Q12HR PO 05/09/24 22:00 05/17/24 09:05 100 MG Folic Acid 1 mg DAILY PO 05/11/24 10:00 05/17/24 09:04 1 MG Diagnostic Test (Pha) 1 strip Q6HR 05/10/24 18:00 05/17/24 17:31 1 STRIP Insulin Human Regular FOLLOW SLIDING SCALE Q6HR SC 05/10/24 18:00 05/17/24 17:38 4 UNITS Dextrose 50 ml UD IV 05/10/24 17:15 Albuterol 2.5 mg Q6HPRN PRN NEB 05/11/24 06:30 05/15/24 12:51 2.5 MG Ipratropium [place] 0.5 mg Q6HPRN PRN NEB 05/11/24 06:30 05/15/24 12:52 0.5 MG Enteral Nutritional Formula 1,000 ml 30ML/HR GT 05/12/24 12:45 05/15/24 20:42 1,000 ML Sodium Chloride 10 ml QSHIFT@10,22 IV 05/13/24 22:00 05/17/24 09:04 10 ML Midazolam HCl 50 ml @ 1 mls/hr Q24H IV 05/14/24 04:45 05/17/24 15:12 6 MLS/HR Fentanyl Citrate 250 ml @ 2.5 mls/hr Q24H IV 05/14/24 04:45 05/17/24 15:14 22.5 MLS/HR Albuterol 2.5 mg Q4HR NEB 05/15/24 14:00 05/17/24 18:18 2.5 MG Ipratropium [place] 0.5 mg Q4HR NEB 05/15/24 14:00 05/17/24 18:18 0.5 MG Lactulose 30 ml Q4HR 05/16/24 07:00 05/17/24 17:31 30 ML Bumetanide 1 mg BIDD IV 05/16/24 18:00 05/17/24 17:31 1 MG Phenylephrine HCl 80 mg/Sodium Chloride 250 ml @ 7.5 mls/hr Q24H IV 05/16/24 11:15 Norepinephrine Bitartrate 32 mg/ Sodium Chloride 250 ml @ 0.938 mls/ hr Q24H IV 05/16/24 11:15 05/17/24 09:06 8.438 MLS/HR Metoclopramide HCl 5 mg Q8HR IV 05/16/24 22:00 05/17/24 13:11 5 MG Meropenem 50 ml @ 17 mls/hr Q8HR IV 05/16/24 22:00 05/18/24 00:57 05/17/24 13:11 17 MLS/HR Meropenem 50 ml @ 17 mls/hr Q12HR IV 05/18/24 10:00 Methylprednisolone Sodium Succinate 40 mg BID IV 05/17/24 10:00 05/17/24 09:03 40 MG Ursodiol 300 mg BID PO 05/17/24 10:00 05/17/24 09:05 300 MG objective General: Intubated sedated HEENT: NC/AT EOMI dry mucous membranes Heart: Tachycardic regular rhythm Abdomen: Soft nontender nondistended Extremity: No clubbing cyanosis or edema laboratory and microbiology Laboratory Tests 05/17/24 08:59 05/17/24 03:30 Test 05/17/24 08:59 Range/Units Serum Glucose 156 H 74-106 mg/dL Problems(with codes): (1) Aspiration pneumonia (2) MRSA (methicillin resistant Staphylococcus aureus) septicemia (3) Hepatitis C (4) Liver failure (5) Cirrhosis (6) Ascites (7) Pulmonary vascular congestion Prognosis Plan Decrease Methylprednisolone 20 mg q.12 hours ; polysubstance abuse mid some alcohol abuse Ursodiol 300 mg p.o. twice a day Discuss with talent development director or hospitalist team if the amiodarone can be discontinued as that might be making his liver disease get worse Monitor labs and I will follow up patient with you Dietary Evaluation Review Comments: 1. Per RN, pt is able to drink liquid but unable to manage jello. Will Downgrade his CCHO-60 diet to pureed texture. 2. offer Glucern BID if PO is still poor 3. elevated BUN, f/u and reassess after pt has a GI and nephrology consult. 4. consider clinimix as a form of protein supplementation as pt has very low albumin. Expected Outcomes/Goals: Gradual wt loss, better DM control. Plan discussed with: Other (DR Davies and nurse) PAULINA BAINS MD May 17, 2024 20:51
[2024-05-17] MEDS: POTASSIUM CHL 20MEQ/100ML 100 ML IV ONE (22:05)
[2024-05-18] VITALS (104 sets, daily range): BP systolic 89–121; BP diastolic 40–66; PULSE 89–104; RESP 11–26; TEMP 96.1–97.5; O2SAT 89–98
[2024-05-18 04:29] LABS: Basophils # (auto) 0 10 ^3/uL (0-0.2); Basophils % (auto) 0.1 % (0.0-2.0); Eosinophils # (auto) 0 10 ^3/uL (0-0.8); Hematocrit 26.4 % (41.0-53.0); Hemoglobin 8.6 g/dL (13.5-17.5); Lymphocytes # (auto) 0.3 10 ^3/uL (0.4-5.4); Lymphocytes % (auto) 4.7 % (10.0-50.0); Mean Corpuscular Hemoglobin 30.8 pg (28.0-32.0); Mean Corpuscular Hgb Conc. 32.8 g/dL (32.0-36.0); Mean Corpuscular Volume 93.9 fL (80.0-100.0); Monocytes # (auto) 0.5 10 ^3/uL (0-1.3); Monocytes % (auto) 7.3 % (0.0-12.0); Neutrophils # (auto) 6.3 10 ^3/uL (1.6-8.6); Neutrophils % (auto) 87.9 % (37.0-80.0); Nucleated Red Blood Cells % 0.2 %; Platelet Count (auto) 96 10^3/uL (140-450); Red Blood Cells 2.81 10^6/uL (4.5-5.90); White Blood Cell 7.1 10^3/uL (4.4-10.8)
[2024-05-18 04:36] LABS: INR 1.59 (0.9-1.15); Prothrombin Time 16.1 sec (9.3-11.8)
[2024-05-18 04:40] LABS: Anion Gap 8 (5-15); Calcium 8.9 mg/dL (8.7-10.4); Carbon Dioxide 24 mmol/L (20-31)
[2024-05-18 04:43] LABS: Alanine Aminotransferase 55 U/L (7-40); Albumin 2.6 g/dL (3.2-4.8); Alkaline Phosphatase 228 U/L (46-116); Aspartate Aminotransferase 103 U/L (13-40); Bilirubin, Total 16.2 mg/dL (0.2-1.0); Blood Urea Nitrogen 78 mg/dL (9-23); Chloride 114 mmol/L (98-107); Glucose 220 mg/dL (74-106); Potassium 3.3 mmol/L (3.5-5.1); Sodium 146 mmol/L (136-145); Total Protein 5.9 g/dL (5.7-8.2)
--- NOTE | 2024-05-18 05:11 | DVH ---
EXAM: XR Chest, 1 View CLINICAL INDICATION: PATIENT INTBATED TECHNIQUE: Frontal view of the chest. COMPARISON: XY CHEST PORTABLE on DOS: 05/17/24, XY CHEST PORTABLE on DOS: 05/17/24, XY CHEST XRAY 1 VIE W on DOS: 05/16/24, XY CHEST XRAY 1 VIEW on DOS: 05/15/24, XY CHEST XRAY 1 VIEW on DOS: 05/14/24 FINDINGS: LUNGS AND PLEURAL SPACES: Bibasilar. No consolidation. No pneumothorax. HEART: Unremarkable. No cardiomegaly. MEDIASTINUM: Unremarkable. Normal mediastinal contour. BONES/JOINTS: Unremarkable. No acute fracture. TUBES, LINES AND DEVICES: The endotracheal tube (ETT) is in satisfactory position. Right internal jugular central venous catheter tip in the superior vena cava. OTHER FINDINGS: . IMPRESSION: No acute cardiopulmonary process.
[2024-05-18 05:35] LABS: Ovalocytes FEW
[2024-05-18 05:36] LABS: Large Platelets FEW; Platelet Estimate Decreased
[2024-05-18 06:22] LABS: Base Excess -2.2 mmol/L (-2.0-3.0)
--- NOTE | 2024-05-18 06:55 | DVHPNRES ---
Progress Note Date Seen: May 18, 2024 Resident Creating Document: JONNY KENNEDY Medical Necessity Reason Pt with a Central, PICC or Fol: Yes The following are medically ne: PICC Line, Mcduffie Catheter Reason for mcduffie catheter: Strict I&O Subjective Review of Systems Patient is 63 years old male with past medical history of cirrhosis of liver, hepatitis C infection, liver shunt, chronic pain, CHF, diabetes mellitus, UTI, prostate cancer presented to the [facility] for evaluation of drug overdose. Information was gathered from reviewing the chart and talking to patient's family. As per patient's patient was found gargling and unresponsive in a car, possibly overdose of morphine, so EMS was called. As per patient might have overdosed with morphine, he had 90 of morphine which was reduced to 56 unit before arrival. On arrival of the EMS patient was given Narcan and woke up but unable to recall what happened. Initial lab workup revealed WBC 5.4, hemoglobin 9.7, hematocrit 32.2, platelets 88,000, sodium 141, potassium 4.9, BUN 23, creatinine 1.73, GFR 44, glucose 112, AST 105, ALT 65, troponin 454, ammonia 84. Troponin I elevated for 450> 548> 554, BNP 504.68. UDS positive for amphetamine, opiates. Urinalysis positive for urinary tract infection leukocyte esterase 3+, RBC 8, WBC 193, bacteria moderate.. ABG on 05/07/2024 revealed pH 7.11, pCO2 65.3, PO2 91.8, bicarbonate 20.7. Chest x-ray revealing cardiomegaly with pulmonary vascular congestion. CXR on 05/06/2024 revealed- Cardiomegaly with pulmonary vascular congestion. On 05/07/2024 CT abdomen and pelvis revealed-1. No acute findings identified. Ventral hernia seen in the lower abdomen containing multiple loops of nonobstructed small- bowel. Cirrhotic liver.Splenomegaly. Trace abdominopelvic ascites. CT head on 05/07/2024 revealed- No acute intracranial hemorrhage, midline shift or mass effect. Echo 2D on 07/03/2023-Normal left ventricular size and dimension. LVEF- 55%. There is a grade 1 diastolic dysfunction. Normal right ventricular size and dimension. Normal rightt ventricular systolic function. Patient was admitted at [facility] in July 06, 2023 due to GI bleeding, cirrhosis of liver he had hepatitis-C, cellulitis of the left lower limb, MRSA, blood culture Klebsiella oxytocia Streptococcus mitis, wound culture Enterococcus faecalis, MRSA October 05, 2021, due to sepsis, Streptococcus agalactiae-suspected prosthetic joint infection November 05, 2020. Ascites, hepatitis-C infection, cellulitis of the left lower extremity PMHCancer, cirrhosis of liver, hepatitis C infection, liver shunt, chronic pain, CHF, diabetes mellitus, UTI, prostate cancer PSH-Hernia Repair, left leg surgery has nail on it Family History-Reviewed, noncontributory to the management of this case. Past Social History-The patient lives at home, smokes cigarettes less than 1 pack per day, denies alcohol or illicit drugs abuse. -home medications ergo cholecalciferol, Lasix 20 mg b.i.d., gabapentin 300 mg q.8h, insulin glargine 15 units subcutaneously b.i.d., lactulose 30 mL p.r.n., morphine sulfate, rifaximin 550 b.i.d., spironolactone 50 daily Patient was seen today for clinical evaluation. Labs and chart reviewed Overnight blood pressure ranging from -89 -111/55 62, Pulse , 95-101 temperature is 96.1-97.9 I/O- intake 1745, output 3000, negative balance 1254 Lab revealed Patient is sedated were turned off today on 05/18/2024 Patient is still on Levophed Patient had a bowel movement today on 05/18/2024 ABG-pH 7.37, pCO2 33.9, PO2 80.2, bicarbonate 19.2 CXR- Bilateral interstitial prominence and patchy bilateral airspace disease. Findings may reflect edema or pneumonia. WBC 5.4> 6.3> 4.0> 3.6> 4.4> 3.6> 2.9> 3.6> 6.0> 10.2> 16.5> 13.6> 12.5> 7.1 Hemoglobin 9.7> 9.7> 8.8> 8.2> 7.7> 7.8> 7.6> 8.0> 8.6> 9.3>> 8.7> 9.4> 8.5> 8.7> 8.6 Platelet 88> 110> 81> 72> 65> 72> 72> 75> 69> 109> 98> 158> 188> 140> 144> 96 Sodium 141> 142> 148> 149> 154> 155> 151> 147> 145> 147> 144> 143> 144> 146 Potassium 4.9> 4.7> 3.8> 3.9> 4.1> 3.5> 3.2> 4.1>> 4.3 4.2> 4.7> 4.1> 2.9> 3.3 BUN 23>> 27> 28> 29> 28> 24> 19> 17> 24> 27> 43> 69> 86> 78 Serum creatinine 1.73> 1.66> 1.25> 1.34> 1.36> 1.14> 1.06> 1.07> 1.41> 1.33> 2.31> 3.62> 3.36> 2.6 Serum ammonia-84> 10> 41> 30> 41> 71> 82> 36> 43> 39> 11 Lactic acid 2.4> 2.0> 4.0> 4.7> 2.7> 2.1 INR 1.40> 1.30> 1.39> 1.35> 1.35> 1.54> 1.5> 1.48> 1.59 Total bilirubin- 6.0> 4.7> 5.9> 7.0> 7.6> 7.8> 8.4> 10.0> 12.1> 16.5> 17.4> 16.2 AST 105> 38> 84> 80> 80> 86> 95> 93> 88> 118> 137> 103 ALT-65> 70> 63> 59> 55> 54> 53> 52>> 56> 49>54> 61> 55 Albumin 3.3> 2.9> 2.9> 2.9> 2.8> 2.9> > 3.0 >2.6> 2.7 > 2.7> 2.6 Urine culture on 05/07/2024 preliminary >100,000 CFU/mL Klebsiella pneumoniae ESBL, on meropenem 05/08/2024- the patient was noted to go into an atrial fibrillation with rapid ventricular response. ER staff administered diltiazem 20 mg IV once. [id number] VASc score: 1 point, HAS-BLED: score: 2 points. 04/15/2019 MRSA screening negative, 05/13/2024 respiratory culture no growth 05/15/2024 Blood culture no growth 05/08/2024-blood culture preliminary no growth MRSA screening negative Provider Called and spoke to patient's Lorna, , discussed patient's current medical condition, plan of care and answered her questions Objective vital signs Vital Sign Date Time Temp Pulse Resp B/P (MAP) Pulse Ox O2 Delivery O2 Flow Rate FiO2 05/18/24 06:25 101 26 111/61 (78) 96 35 05/18/24 06:15 96.1 96.1 05/18/24 06:00 Mechanical Ventilator+ Total Intake and Output 05/17/24 05/17/24 05/18/24 15:00 23:00 07:00 Intake Total 451.344 ml 679.063 ml 561.46 ml Output Total 1700 ml 1300 ml Balance 451.344 ml -1020.937 ml -738.54 ml medications Current Medications Medications Dose Ordered Sig/Kenisha Route Start Time Stop Time Status Last Admin Dose Admin Sodium Chloride 10 ml Q8HR IV 05/07/24 06:00 05/18/24 05:33 10 ML Ondansetron HCl 4 mg Q4HP PRN IV 05/06/24 22:15 Docusate Sodium 100 mg BIDPRN PRN PO 05/06/24 22:15 Pantoprazole Sodium 40 mg BID IV 05/08/24 22:00 05/17/24 21:42 40 MG Rifaximin 550 mg BID PO 05/09/24 22:00 05/17/24 21:43 550 MG Thiamine HCl 100 mg DAILY IV 05/10/24 10:00 05/17/24 09:01 100 MG Flecainide Acetate 100 mg Q12HR PO 05/09/24 22:00 05/17/24 21:44 100 MG Folic Acid 1 mg DAILY PO 05/11/24 10:00 05/17/24 09:04 1 MG Diagnostic Test (Pha) 1 strip Q6HR 05/10/24 18:00 05/18/24 05:54 1 STRIP Insulin Human Regular FOLLOW SLIDING SCALE Q6HR SC 05/10/24 18:00 05/18/24 05:52 8 UNITS Dextrose 50 ml UD IV 05/10/24 17:15 Albuterol 2.5 mg Q6HPRN PRN NEB 05/11/24 06:30 05/15/24 12:51 2.5 MG Ipratropium [place] 0.5 mg Q6HPRN PRN NEB 05/11/24 06:30 05/15/24 12:52 0.5 MG Enteral Nutritional Formula 1,000 ml 30ML/HR GT 05/12/24 12:45 05/15/24 20:42 1,000 ML Sodium Chloride 10 ml QSHIFT@10,22 IV 05/13/24 22:00 05/17/24 21:44 10 ML Midazolam HCl 50 ml @ 1 mls/hr Q24H IV 05/14/24 04:45 05/17/24 23:30 6 MLS/HR Fentanyl Citrate 250 ml @ 2.5 mls/hr Q24H IV 05/14/24 04:45 05/17/24 15:14 22.5 MLS/HR Albuterol 2.5 mg Q4HR NEB 05/15/24 14:00 05/18/24 06:22 2.5 MG Ipratropium [place] 0.5 mg Q4HR NEB 05/15/24 14:00 05/18/24 06:21 0.5 MG Lactulose 30 ml Q4HR NG 05/16/24 07:00 05/18/24 05:32 30 ML Bumetanide 1 mg BIDD IV 05/16/24 18:00 05/17/24 17:31 1 MG Phenylephrine HCl 80 mg/Sodium Chloride 250 ml @ 7.5 mls/hr Q24H IV 05/16/24 11:15 Norepinephrine Bitartrate 32 mg/ Sodium Chloride 250 ml @ 0.938 mls/ hr Q24H IV 05/16/24 11:15 05/17/24 09:06 8.438 MLS/HR Metoclopramide HCl 5 mg Q8HR IV 05/16/24 22:00 05/18/24 05:32 5 MG Meropenem 50 ml @ 17 mls/hr Q12HR IV 05/18/24 10:00 Ursodiol 300 mg BID PO 05/17/24 10:00 05/17/24 21:43 300 MG Methylprednisolone Sodium Succinate 20 mg BID IV 05/17/24 22:00 05/17/24 21:43 20 MG Examination General examination- HEENT- PEERLA, no acute nasal discharge Cardiovascular- S1-S2 audible, rate and rhythm regular, no murmur Respiratory- CTAB, no wheeze or rhonchi Gastrointestinal-nontender, bowel sound+. Abdomen distended+, abdominal hernia noted Musculoskeletal-no acute joint swelling or tenderness or redness# Lower extremity- + bilateral leg edema+, hand swelling+ Psychiatry- drowsy, dizzy Skin- bilateral lower extremity skin pigmentation laboratory and microbiology Laboratory Tests 05/18/24 03:40 Test 05/18/24 03:40 Range/Units Serum Glucose 220 H 74-106 mg/dL Microbiology Date/Time Source Procedure Growth Status 05/15/24 09:22 Blood Blood Culture - Preliminary NO GROWTH AFTER 48 HOURS OF INCUBATION. Resulted 05/13/24 14:00 Nose MRSA Screen - Final Complete 05/13/24 13:55 Sputum Gram Stain - Final Complete 05/13/24 13:55 Sputum Respiratory Culture - Final Complete 05/07/24 01:30 Voided Urine Urine Culture - Final Klebsiella pneumoniae - ESBL Complete Problem List/Assessment/Plan Problem List/Assessment/Plan Assessment and plan Neurology -hepatic encephalopathy/toxic encephalopathy/metabolic encephalopathy due to cirrhosis of liver Septic shock -substance abuse -amphetamine -patient on mechanical ventilation, on sedation -avoid dehydration and nephrotoxic and hepatotoxic Cardiovascular -Atrial fibrillation with rapid ventricular response, new onset -CHF likely diastolic, LVEF 60%, -acute pulmonary edema -NSTEMI type 2 likely demand led ischemia -amiodarone drip as per Cardiology recommendation -continue current management Respiratory -bilateral aspiration pneumonia -acute hypoxic respiratory failure likely due to pneumonia Gram-positive versus Gram-negative Acute hypercarbic respiratory failure -continue current management Gastrointestinal -hepatic encephalopathy -hepatitis-C positive -cirrhosis of liver-on Ness shunt placed 10 years before -Hepatitis-C decompensated liver cirrhosis with anasarca, - trace ascites, coagulopathy, -melena -transaminitis -suspected spontaneous bacterial peritonitis --continue rifaximin -discontinued methylprednisolone on 05/18/2024 Continue ertapenem as prescribed -avoid dehydration and nephrotoxic and hepatotoxic drugs -status post gastroenterology consult Genitourinary/renal -hepatorenal syndrome -Constipation - dehydration and hepatotoxic and nephrotoxic drugs Infectious -septic shock due to UTI/pneumonia -suspected spontaneous bacterial peritonitis -Urine culture on 05/07/2024 preliminary >100,000 CFU/mL Klebsiella pneumoniae ESBL Continue IV meropenem as prescribed Operator Prefinish -pancytopenia likely due to hypersplenism -hypersplenism -anemia -thrombocytopenia -leukopenia -monitor CBC Metabolic or endocrine -Metabolic acidosis -hypernatremia Hypokalemia -Supplimented -hyper ammonia -obesity, BMI 36.4 -substance abuse, amphetamine Skin or elementary Skin in pigmentation on the bilateral lower extremity Mcduffie's catheter Drips-Levophed ETT PICC line Goals of care, Code status ; discussed with >15 minutes PUD prophylaxis: Pantoprazole DVT prophylaxis: SCD Plan discussed with Dr. Ag , nursing staff, Total time spent on patient evaluation, chart review, assessment and plan, Critical time spent including mechanical ventilation excluding procedure 81 minutes Plan discussed with: Spouse, Other (RN) My Orders My Orders Orders - JONNY KENNEDY Procedure Category Date Status Time Chest Portable XY 05/17/24 Resulted 12:45 Electrocardigram EKG 05/17/24 Logged 19:02 Chest Portable XY 05/18/24 Resulted 04:00 Abg W/ Co-Ox RT 05/18/24 Logged 05:32 Dietary Evaluation Review Comments: 1. Per RN, pt is able to drink liquid but unable to manage jello. Will Downgrade his CCHO-60 diet to pureed texture. 2. offer Glucern BID if PO is still poor 3. elevated BUN, f/u and reassess after pt has a GI and nephrology consult. 4. consider clinimix as a form of protein supplementation as pt has very low albumin. Expected Outcomes/Goals: Gradual wt loss, better DM control. Date of Service: May 18, 2024 Billing Provider: DANELLE AG MD Common Visit Codes: NOT BILLABLE JONNY KENNEDY May 18, 2024 06:55 DANLELE AG MD May 31, 2024 09:45
[2024-05-18] MEDS: MEROPENEM 1GM IVPB 50 ML IV SCH (08:11)
[2024-05-18] MEDS: POTASSIUM CHL 20MEQ/50ML 50 ML IV SCH (08:12)
[2024-05-18 11:48] LABS: Anion Gap 8 (5-15); Carbon Dioxide 26 mmol/L (20-31); Potassium 3.7 mmol/L (3.5-5.1)
[2024-05-18 11:51] LABS: Calcium 8.5 mg/dL (8.7-10.4); Chloride 114 mmol/L (98-107); Sodium 148 mmol/L (136-145)
[2024-05-18 12:05] LABS: Glucose 181 mg/dL (74-106)
[2024-05-18 12:08] LABS: BUN/Creatinine Ratio 33.2 (10.0-20.0); Blood Urea Nitrogen 89 mg/dL (9-23)
[2024-05-18] MEDS: FLEET ENEMA(ADULT) 135 ML PR ONE (14:41)
--- NOTE | 2024-05-18 16:06 | DVHPN2 ---
Progress Note Date Seen: May 17, 2024 Medical Necessity Reason Pt with a Central, PICC or Fol: Yes The following are medically ne: PICC Line, Mcduffie Catheter Reason for mcduffie catheter: Strict I&O Subjective Patient reports: Other (Patient intubated and jaundiced) Review of Systems: Deferred Objective vital signs Vital Sign Date Time Temp Pulse Resp B/P (MAP) Pulse Ox O2 Delivery O2 Flow Rate FiO2 05/18/24 14:27 96 20 95/48 (64) 92 35 05/18/24 14:00 Mechanical Ventilator+ 05/18/24 11:45 97.0 97.0 Total Intake and Output 05/17/24 05/17/24 05/18/24 15:00 23:00 07:00 Intake Total 451.344 ml 679.063 ml 758.281 ml Output Total 1700 ml 1300 ml Balance 451.344 ml -1020.937 ml -541.719 ml medications Current Medications Medications Dose Ordered Sig/Kenisha Route Start Time Stop Time Status Last Admin Dose Admin Sodium Chloride 10 ml Q8HR IV 05/07/24 06:00 05/18/24 12:47 10 ML Ondansetron HCl 4 mg Q4HP PRN IV 05/06/24 22:15 Docusate Sodium 100 mg BIDPRN PRN PO 05/06/24 22:15 Pantoprazole Sodium 40 mg BID IV 05/08/24 22:00 05/18/24 08:10 40 MG Rifaximin 550 mg BID PO 05/09/24 22:00 05/18/24 08:10 550 MG Thiamine HCl 100 mg DAILY IV 05/10/24 10:00 05/18/24 08:09 100 MG Flecainide Acetate 100 mg Q12HR PO 05/09/24 22:00 05/18/24 08:10 100 MG Folic Acid 1 mg DAILY PO 05/11/24 10:00 05/18/24 08:10 1 MG Diagnostic Test (Pha) 1 strip Q6HR 05/10/24 18:00 05/18/24 11:48 1 STRIP Insulin Human Regular FOLLOW SLIDING SCALE Q6HR SC 05/10/24 18:00 05/18/24 12:25 4 UNITS Dextrose 50 ml UD IV 05/10/24 17:15 Albuterol 2.5 mg Q6HPRN PRN NEB 05/11/24 06:30 05/15/24 12:51 2.5 MG Ipratropium [place] 0.5 mg Q6HPRN PRN NEB 05/11/24 06:30 05/15/24 12:52 0.5 MG Enteral Nutritional Formula 1,000 ml 30ML/HR GT 05/12/24 12:45 05/15/24 20:42 1,000 ML Sodium Chloride 10 ml QSHIFT@10,22 IV 05/13/24 22:00 05/18/24 08:10 10 ML Fentanyl Citrate 250 ml @ 2.5 mls/hr Q24H IV 05/14/24 04:45 05/17/24 15:14 22.5 MLS/HR Albuterol 2.5 mg Q4HR NEB 05/15/24 14:00 05/18/24 14:26 2.5 MG Ipratropium [place] 0.5 mg Q4HR NEB 05/15/24 14:00 05/18/24 14:26 0.5 MG Lactulose 30 ml Q4HR 05/16/24 07:00 05/18/24 12:47 30 ML Bumetanide 1 mg BIDD IV 05/16/24 18:00 05/17/24 17:31 1 MG Phenylephrine HCl 80 mg/Sodium Chloride 250 ml @ 7.5 mls/hr Q24H IV 05/16/24 11:15 Norepinephrine Bitartrate 32 mg/ Sodium Chloride 250 ml @ 0.938 mls/ hr Q24H IV 05/16/24 11:15 05/17/24 09:06 8.438 MLS/HR Metoclopramide HCl 5 mg Q8HR IV 05/16/24 22:00 05/18/24 12:46 5 MG Meropenem 50 ml @ 17 mls/hr Q12HR IV 05/18/24 10:00 05/18/24 08:11 17 MLS/HR Ursodiol 300 mg BID PO 05/17/24 10:00 05/18/24 08:11 300 MG Dexmedetomidine HCl 400 mcg/ Dextrose 100 ml @ 5.96 mls/hr [id number] IV 05/18/24 10:15 Examination: GENERAL:Abnormal, HEENT:Abnormal, SKIN:Abnormal (Jaundiced) laboratory and microbiology Laboratory Tests 05/18/24 11:00 4/2/25 03:40 Test 05/18/24 11:00 Range/Units Serum Glucose 181 H 74-106 mg/dL Microbiology Date/Time Source Procedure Growth Status 05/15/24 09:22 Blood Blood Culture - Preliminary NO GROWTH AFTER 72 HOURS OF INCUBATION. Resulted 05/13/24 14:00 Nose MRSA Screen - Final Complete 05/13/24 13:55 Sputum Gram Stain - Final Complete 05/13/24 13:55 Sputum Respiratory Culture - Final Complete 05/07/24 01:30 Voided Urine Urine Culture - Final Klebsiella pneumoniae - ESBL Complete Problem List/Assessment/Plan Problem List/Assessment/Plan Acute kidney injury hemodynamically mediated in the setting of hypotension and shock +contrast Acute respiratory failure in the setting of aspiration pneumonia Hypernatremia Hepatic encephalopathy Decompensated liver cirrhosis \ Acute methamphetamine intoxication Hepatitis-C Multidrug resistant ESBL urinary tract infection Aspiration pneumonia recs Free water for sodium correction as ordered bumex iv as ordered Renal function stable Urine output better Plan discussed with: Other My Orders My Orders Orders - YANELY CHEATHAM MD Procedure Category Date Status Time Free Water PHA 05/18/24 Logged 18:00 Dietary Evaluation Review Comments: 1. Per RN, pt is able to drink liquid but unable to manage jello. Will Downgrade his CCHO-60 diet to pureed texture. 2. offer Glucern BID if PO is still poor 3. elevated BUN, f/u and reassess after pt has a GI and nephrology consult. 4. consider clinimix as a form of protein supplementation as pt has very low albumin. Expected Outcomes/Goals: Gradual wt loss, better DM control. YANELY CHEATHAM MD May 18, 2024 16:06
--- NOTE | 2024-05-18 16:07 | DVHPN2 ---
Progress Note Date Seen: May 18, 2024 Medical Necessity Reason Pt with a Central, PICC or Fol: Yes The following are medically ne: PICC Line, Mcduffei Catheter Reason for mcduffie catheter: Strict I&O Objective vital signs Vital Sign Date Time Temp Pulse Resp B/P (MAP) Pulse Ox O2 Delivery O2 Flow Rate FiO2 05/18/24 14:27 96 20 95/48 (64) 92 35 05/18/24 14:00 Mechanical Ventilator+ 05/18/24 11:45 97.0 97.0 Total Intake and Output 05/17/24 05/17/24 05/18/24 15:00 23:00 07:00 Intake Total 451.344 ml 679.063 ml 758.281 ml Output Total 1700 ml 1300 ml Balance 451.344 ml -1020.937 ml -541.719 ml medications Current Medications Medications Dose Ordered Sig/Kenisha Route Start Time Stop Time Status Last Admin Dose Admin Sodium Chloride 10 ml Q8HR IV 05/07/24 06:00 05/18/24 12:47 10 ML Ondansetron HCl 4 mg Q4HP PRN IV 05/06/24 22:15 Docusate Sodium 100 mg BIDPRN PRN PO 05/06/24 22:15 Pantoprazole Sodium 40 mg BID IV 05/08/24 22:00 05/18/24 08:10 40 MG Rifaximin 550 mg BID PO 05/09/24 22:00 05/18/24 08:10 550 MG Thiamine HCl 100 mg DAILY IV 05/10/24 10:00 05/18/24 08:09 100 MG Flecainide Acetate 100 mg Q12HR PO 05/09/24 22:00 05/18/24 08:10 100 MG Folic Acid 1 mg DAILY PO 05/11/24 10:00 05/18/24 08:10 1 MG Diagnostic Test (Pha) 1 strip Q6HR 05/10/24 18:00 05/18/24 11:48 1 STRIP Insulin Human Regular FOLLOW SLIDING SCALE Q6HR SC 05/10/24 18:00 05/18/24 12:25 4 UNITS Dextrose 50 ml UD IV 05/10/24 17:15 Albuterol 2.5 mg Q6HPRN PRN NEB 05/11/24 06:30 05/15/24 12:51 2.5 MG Ipratropium [place] 0.5 mg Q6HPRN PRN NEB 05/11/24 06:30 05/15/24 12:52 0.5 MG Enteral Nutritional Formula 1,000 ml 30ML/HR GT 05/12/24 12:45 05/15/24 20:42 1,000 ML Sodium Chloride 10 ml QSHIFT@10,22 IV 05/13/24 22:00 05/18/24 08:10 10 ML Fentanyl Citrate 250 ml @ 2.5 mls/hr Q24H IV 05/14/24 04:45 05/17/24 15:14 22.5 MLS/HR Albuterol 2.5 mg Q4HR NEB 05/15/24 14:00 05/18/24 14:26 2.5 MG Ipratropium [place] 0.5 mg Q4HR NEB 05/15/24 14:00 05/18/24 14:26 0.5 MG Lactulose 30 ml Q4HR NG 05/16/24 07:00 05/18/24 12:47 30 ML Bumetanide 1 mg BIDD IV 05/16/24 18:00 05/17/24 17:31 1 MG Phenylephrine HCl 80 mg/Sodium Chloride 250 ml @ 7.5 mls/hr Q24H IV 05/16/24 11:15 Norepinephrine Bitartrate 32 mg/ Sodium Chloride 250 ml @ 0.938 mls/ hr Q24H IV 05/16/24 11:15 05/17/24 09:06 8.438 MLS/HR Metoclopramide HCl 5 mg Q8HR IV 05/16/24 22:00 05/18/24 12:46 5 MG Meropenem 50 ml @ 17 mls/hr Q12HR IV 05/18/24 10:00 05/18/24 08:11 17 MLS/HR Ursodiol 300 mg BID PO 05/17/24 10:00 05/18/24 08:11 300 MG Dexmedetomidine HCl 400 mcg/ Dextrose 100 ml @ 5.96 mls/hr [id number] IV 05/18/24 10:15 Examination: LUNGS:Abnormal, MSK:Abnormal, SKIN:Abnormal, NEURO:Abnormal laboratory and microbiology Laboratory Tests 05/18/24 11:00 05/18/24 03:40 Test 05/18/24 11:00 Range/Units Serum Glucose 181 H 74-106 mg/dL Microbiology Date/Time Source Procedure Growth Status 05/15/24 09:22 Blood Blood Culture - Preliminary NO GROWTH AFTER 72 HOURS OF INCUBATION. Resulted 05/13/24 14:00 Nose MRSA Screen - Final Complete 05/13/24 13:55 Sputum Gram Stain - Final Complete 05/13/24 13:55 Sputum Respiratory Culture - Final Complete 05/07/24 01:30 Voided Urine Urine Culture - Final Klebsiella pneumoniae - ESBL Complete Problem List/Assessment/Plan Problem List/Assessment/Plan Acute kidney injury hemodynamically mediated in the setting of hypotension and shock +contrast Acute respiratory failure in the setting of aspiration pneumonia Hypernatremia Hepatic encephalopathy Decompensated liver cirrhosis \ Acute methamphetamine intoxication Hepatitis-C Multidrug resistant ESBL urinary tract infection Aspiration pneumonia recs Free water for sodium correction as ordered bumex iv as ordered Renal function stable Urine output better Plan discussed with: Other My Orders My Orders Orders - YANELY CHEATHAM MD Procedure Category Date Status Time Free Water PHA 05/18/24 Logged 18:00 Dietary Evaluation Review Comments: 1. Per RN, pt is able to drink liquid but unable to manage jello. Will Downgrade his CCHO-60 diet to pureed texture. 2. offer Glucern BID if PO is still poor 3. elevated BUN, f/u and reassess after pt has a GI and nephrology consult. 4. consider clinimix as a form of protein supplementation as pt has very low albumin. Expected Outcomes/Goals: Gradual wt loss, better DM control. YANELY CHEATHAM MD May 18, 2024 16:07
--- NOTE | 2024-05-18 16:36 | DVHPN2 ---
Progress Note - Dictate Date Seen: May 18, 2024 Medical Necessity Reason Pt with a Central, PICC or Fol: Yes The following are medically ne: PICC Line, Mcduffie Catheter Reason for mcduffie catheter: Strict I&O Subjective Patient bilirubin is starting to trend down Fi02 35% Patient had high gastric residuals yesterday history of the tube feedings were held Patient was started on Reglan 5 mg IV q.8 hours Today is tube feedings have been resumed at a low rate and we will monitor his residuals vital signs Vital Sign Date Time Temp Pulse Resp B/P (MAP) Pulse Ox O2 Delivery O2 Flow Rate FiO2 05/18/24 16:31 93 20 104/47 (66) 92 35 05/18/24 16:00 97.2 97.2 05/18/24 16:00 Mechanical Ventilator+ Total Intake and Output 05/17/24 05/17/24 05/18/24 15:00 23:00 07:00 Intake Total 451.344 ml 679.063 ml 758.281 ml Output Total 1700 ml 1300 ml Balance 451.344 ml -1020.937 ml -541.719 ml medications Current Medications Medications Dose Ordered Sig/Kenisha Route Start Time Stop Time Status Last Admin Dose Admin Sodium Chloride 10 ml Q8HR IV 05/07/24 06:00 05/18/24 12:47 10 ML Ondansetron HCl 4 mg Q4HP PRN IV 05/06/24 22:15 Docusate Sodium 100 mg BIDPRN PRN PO 05/06/24 22:15 Pantoprazole Sodium 40 mg BID IV 05/08/24 22:00 05/18/24 08:10 40 MG Rifaximin 550 mg BID PO 05/09/24 22:00 05/18/24 08:10 550 MG Thiamine HCl 100 mg DAILY IV 05/10/24 10:00 05/18/24 08:09 100 MG Flecainide Acetate 100 mg Q12HR PO 05/09/24 22:00 05/18/24 08:10 100 MG Folic Acid 1 mg DAILY PO 05/11/24 10:00 05/18/24 08:10 1 MG Diagnostic Test (Pha) 1 strip Q6HR 05/10/24 18:00 05/18/24 16:18 1 STRIP Insulin Human Regular FOLLOW SLIDING SCALE Q6HR SC 05/10/24 18:00 05/18/24 16:22 2 UNITS Dextrose 50 ml UD IV 05/10/24 17:15 Albuterol 2.5 mg Q6HPRN PRN NEB 05/11/24 06:30 05/15/24 12:51 2.5 MG Ipratropium [place] 0.5 mg Q6HPRN PRN NEB 05/11/24 06:30 05/15/24 12:52 0.5 MG Enteral Nutritional Formula 1,000 ml 30ML/HR GT 05/12/24 12:45 05/15/24 20:42 1,000 ML Sodium Chloride 10 ml QSHIFT@10,22 IV 05/13/24 22:00 05/18/24 08:10 10 ML Fentanyl Citrate 250 ml @ 2.5 mls/hr Q24H IV 05/14/24 04:45 05/17/24 15:14 22.5 MLS/HR Albuterol 2.5 mg Q4HR NEB 05/15/24 14:00 05/18/24 14:26 2.5 MG Ipratropium [place] 0.5 mg Q4HR NEB 05/15/24 14:00 05/18/24 14:26 0.5 MG Lactulose 30 ml Q4HR NG 05/16/24 07:00 05/18/24 12:47 30 ML Bumetanide 1 mg BIDD IV 05/16/24 18:00 05/17/24 17:31 1 MG Phenylephrine HCl 80 mg/Sodium Chloride 250 ml @ 7.5 mls/hr Q24H IV 05/16/24 11:15 Norepinephrine Bitartrate 32 mg/ Sodium Chloride 250 ml @ 0.938 mls/ hr Q24H IV 05/16/24 11:15 05/17/24 09:06 8.438 MLS/HR Metoclopramide HCl 5 mg Q8HR IV 05/16/24 22:00 05/18/24 12:46 5 MG Meropenem 50 ml @ 17 mls/hr Q12HR IV 05/18/24 10:00 05/18/24 08:11 17 MLS/HR Ursodiol 300 mg BID PO 05/17/24 10:00 05/18/24 08:11 300 MG Dexmedetomidine HCl 400 mcg/ Dextrose 100 ml @ 5.96 mls/hr [id number] IV 05/18/24 10:15 Purified Water 400 ml Q6HR GT 05/18/24 18:00 objective General: Intubated sedated HEENT: NC/AT EOMI dry mucous membranes Heart: Tachycardic regular rhythm Abdomen: Soft nontender nondistended Extremity: No clubbing cyanosis or edema laboratory and microbiology Laboratory Tests 05/18/24 11:00 05/18/24 03:40 Test 05/18/24 11:00 Range/Units Serum Glucose 181 H 74-106 mg/dL Problems(with codes): (1) Aspiration pneumonia (2) MRSA (methicillin resistant Staphylococcus aureus) septicemia (3) Hepatitis C (4) Liver failure (5) Cirrhosis (6) Ascites Prognosis Plan Decrease Methylprednisolone 20 mg q.12 hours ; history of polysubstance abuse some alcohol abuse Ursodiol 300 mg p.o. twice a day Discuss with scanning tech or hospitalist team if the amiodarone can be discontinued as that might be making his liver disease get worse Monitor labs and I will follow up patient with you Dietary Evaluation Review Comments: 1. Per RN, pt is able to drink liquid but unable to manage jello. Will Downgrade his CCHO-60 diet to pureed texture. 2. offer Glucern BID if PO is still poor 3. elevated BUN, f/u and reassess after pt has a GI and nephrology consult. 4. consider clinimix as a form of protein supplementation as pt has very low albumin. Expected Outcomes/Goals: Gradual wt loss, better DM control. Plan discussed with: Other (Dr Davies) PAULINA BAINS MD May 18, 2024 16:36
[2024-05-18] MEDS: FREE WATER GT SCH (16:37)
[2024-05-19] VITALS (111 sets, daily range): BP systolic 88–121; BP diastolic 36–65; PULSE 96–117; RESP 13–24; TEMP 96.3–99.3; O2SAT 82–98
[2024-05-19 03:57] LABS: Hemoglobin 9.1 g/dL (13.5-17.5); White Blood Cell 15.5 10^3/uL (4.4-10.8)
[2024-05-19 04:01] LABS: Hematocrit 29.2 % (41.0-53.0); Mean Corpuscular Hemoglobin 29.6 pg (28.0-32.0); Mean Corpuscular Hgb Conc. 31.2 g/dL (32.0-36.0); Platelet Count (auto) 142 10^3/uL (140-450); Red Blood Cells 3.08 10^6/uL (4.5-5.90); Red Cell Distribution Width 23.6 % (11.8-14.3)
[2024-05-19 04:07] LABS: Basophils % (manual) 0 (0.0-2.0); Blast Cells 0; Eosinophils % (manual) 0 (0-7); Myelocytes % 0; Promyelocytes % 0; Reactive Lymphocytes 0
[2024-05-19 04:10] LABS: INR 1.54 (0.9-1.15); Prothrombin Time 15.6 sec (9.3-11.8)
[2024-05-19 04:16] LABS: Anion Gap 9 (5-15); Calcium 8.7 mg/dL (8.7-10.4); Carbon Dioxide 24 mmol/L (20-31); Potassium 4.6 mmol/L (3.5-5.1)
[2024-05-19 04:19] LABS: BUN/Creatinine Ratio 31.1 (10.0-20.0)
[2024-05-19 04:31] LABS: Chloride 114 mmol/L (98-107); Glucose 189 mg/dL (74-106); Sodium 147 mmol/L (136-145)
[2024-05-19 04:32] LABS: Blood Urea Nitrogen 104 mg/dL (9-23)
[2024-05-19 04:33] LABS: Alanine Aminotransferase 58 U/L (7-40); Albumin 2.7 g/dL (3.2-4.8); Alkaline Phosphatase 245 U/L (46-116); Aspartate Aminotransferase 94 U/L (13-40); Magnesium 2.8 mg/dL (1.6-2.6); Total Protein 6.2 g/dL (5.7-8.2)
[2024-05-19 05:17] LABS: Anisocytosis Slight; Band Neutrophils % (manual) 5; Lymphocytes % (manual) 2 (10.0-50.0); Metamyelocytes % 2; Monocytes % (manual) 3 (0-12); Ovalocytes FEW
[2024-05-19 05:18] LABS: Large Platelets FEW; Platelet Estimate Adequate
--- NOTE | 2024-05-19 05:53 | DVH ---
CHEST RADIOGRAPH Indication: CHF Technique: Single frontal view of the chest was obtained COMPARISON: XY CHEST PORTABLE on DOS: 05/18/24, XY CHEST PORTABLE on DOS: 05/17/24, XY CHEST PORTABLE on DOS: 05/17/24, XY CHEST XRAY 1 VIEW on DOS: 05/16/24, XY CHEST XRAY 1 VIEW on DOS: 05/15/24 FINDINGS: Lines and Tubes: Endotracheal tube, enteric catheter and right PICC in satisfactory position. Lungs: Multifocal airspace disease. Pleura: No effusion. No pneumothorax. Cardiomediastinal contours: Unremarkable Bones: Unremarkable IMPRESSION: Lines and tubes in satisfactory position. No significant interval change.
[2024-05-19 05:59] LABS: Base Excess -3.5 mmol/L (-2.0-3.0)
--- NOTE | 2024-05-19 07:17 | DVHPNRES ---
Progress Note Date Seen: May 19, 2024 Resident Creating Document: JONNY KENNEDY Medical Necessity Reason Pt with a Central, PICC or Fol: Yes The following are medically ne: PICC Line, Mcduffie Catheter Reason for mcduffie catheter: Strict I&O Subjective Review of Systems Patient is 63 years old male with past medical history of cirrhosis of liver, hepatitis C infection, liver shunt, chronic pain, CHF, diabetes mellitus, UTI, prostate cancer presented to the [facility] for evaluation of drug overdose. Information was gathered from reviewing the chart and talking to patient's family. As per patient's patient was found gargling and unresponsive in a car, possibly overdose of morphine, so EMS was called. As per patient might have overdosed with morphine, he had 90 of morphine which was reduced to 56 unit before arrival. On arrival of the EMS patient was given Narcan and woke up but unable to recall what happened. Initial lab workup revealed WBC 5.4, hemoglobin 9.7, hematocrit 32.2, platelets 88,000, sodium 141, potassium 4.9, BUN 23, creatinine 1.73, GFR 44, glucose 112, AST 105, ALT 65, troponin 454, ammonia 84. Troponin I elevated for 450> 548> 554, BNP 504.68. UDS positive for amphetamine, opiates. Urinalysis positive for urinary tract infection leukocyte esterase 3+, RBC 8, WBC 193, bacteria moderate.. ABG on 05/07/2024 revealed pH 7.11, pCO2 65.3, PO2 91.8, bicarbonate 20.7. Chest x-ray revealing cardiomegaly with pulmonary vascular congestion. CXR on 05/06/2024 revealed- Cardiomegaly with pulmonary vascular congestion. On 05/07/2024 CT abdomen and pelvis revealed-1. No acute findings identified. Ventral hernia seen in the lower abdomen containing multiple loops of nonobstructed small- bowel. Cirrhotic liver.Splenomegaly. Trace abdominopelvic ascites. CT head on 05/07/2024 revealed- No acute intracranial hemorrhage, midline shift or mass effect. Echo 2D on 07/03/2023-Normal left ventricular size and dimension. LVEF- 55%. There is a grade 1 diastolic dysfunction. Normal right ventricular size and dimension. Normal rightt ventricular systolic function.Urine culture on 05/07/2024 preliminary >100,000 CFU/mL Klebsiella pneumoniae ESBL, on meropenem. 05/08/2024- the patient was noted to go into an atrial fibrillation with rapid ventricular response. ER staff administered diltiazem 20 mg IV once. [id number] VASc score: 1 point, HAS-BLED: score: 2 points. Patient had melena several episode, hemoglobin was stable over 7. Gastroenterology was consulted and recommended for conservative management. No EGD was done. On 05/13/2024- Patient aspirated at a.m. and was having hypoxic episode with respiratory distress. Patient was intubated and put on mechanical ventilator. PICC line was placed on left arm. CTA head and neck negative and carotid Doppler-suspected fistula Which was ruled out by CTA of head and neck. Patient has pancytopenia. Patient has been off sedative since 05/19/24. But patient is not waking up as of today 05/19/2024. Patient is being followed by demolition hammer operator for NELIDA/hepatorenal syndrome. Patient is also being followed by range ecologist for atrial fibrillation, patient on flecainide, no amiodarone at this time as patient's bilirubin is gradually rising. Patient still on Levophed as of 05/19/2024. Patient has a PICC line in the left arm done on 05/13/2024. Patient was admitted at [facility] in July 06, 2023 due to GI bleeding, cirrhosis of liver he had hepatitis-C, cellulitis of the left lower limb, MRSA, blood culture Klebsiella oxytocia Streptococcus mitis, wound culture Enterococcus faecalis, MRSA October 05, 2021, due to sepsis, Streptococcus agalactiae-suspected prosthetic joint infection November 05, 2020. Ascites, hepatitis-C infection, cellulitis of the left lower extremity PMHCancer, cirrhosis of liver, hepatitis C infection, liver shunt, chronic pain, CHF, diabetes mellitus, UTI, prostate cancer PSH-Hernia Repair, left leg surgery has nail on it Family History-Reviewed, noncontributory to the management of this case. Past Social History-The patient lives at home, smokes cigarettes less than 1 pack per day, denies alcohol or illicit drugs abuse. -home medications ergo cholecalciferol, Lasix 20 mg b.i.d., gabapentin 300 mg q.8h, insulin glargine 15 units subcutaneously b.i.d., lactulose 30 mL p.r.n., morphine sulfate, rifaximin 550 b.i.d., spironolactone 50 daily Patient was seen today for clinical evaluation. Labs and chart reviewed Patient had couple of bowel movement yesterday on 05/18/2024 Overnight blood pressure ranging from 88-170/46-57, Pulse -96 -117, temperature is 96.1-99.3 I/O- intake 1430, output 600, negative balance 830 Lab revealed Patient sedatives were turned off on 05/18/24 at a.m. On 05/19/2024 Patient still did not wake up ABG-pH 7.37, pCO2 33.9, PO2 80.2, bicarbonate 19.2 WBC 5.4> 6.3> 4.0> 3.6> 4.4> 3.6> 2.9> 3.6> 6.0> 10.2> 16.5> 13.6> 12.5> 7.1> 15.5 Hemoglobin 9.7> 9.7> 8.8> 8.2> 7.7> 7.8> 7.6> 8.0> 8.6> 9.3>> 8.7> 9.4> 8.5> 8.7> 8.6> 9.1 Platelet 88> 110> 81> 72> 65> 72> 72> 75> 69> 109> 98> 158> 188> 140> 144> 96> 142> Sodium 141> 142> 148> 149> 154> 155> 151> 147> 145> 147> 144> 143> 144> 146> 147 Potassium 4.9> 4.7> 3.8> 3.9> 4.1> 3.5> 3.2> 4.1>> 4.3 4.2> 4.7> 4.1> 2.9> 3.3> 4.6 BUN 23>> 27> 28> 29> 28> 24> 19> 17> 24> 27> 43> 69> 86> 78> 104 Serum creatinine 1.73> 1.66> 1.25> 1.34> 1.36> 1.14> 1.06> 1.07> 1.41> 1.33> 2.31> 3.62> 3.36> 2.6> 3.34 GFR-44> 53> 65> 59> 73> 79> 56> 31> 20> 27>> 26> 20 Serum ammonia-84> 10> 41> 30> 41> 71> 82> 36> 43> 39> 11> 18 Lactic acid 2.4> 2.0> 4.0> 4.7> 2.7> 2.1 INR 1.40> 1.30> 1.39> 1.35> 1.35> 1.54> 1.5> 1.48> 1.59> 1.54 Total bilirubin- 6.0> 4.7> 5.9> 7.0> 7.6> 7.8> 8.4> 10.0> 12.1> 16.5> 17.4> 16.2> 16.0 AST 105> 38> 84> 80> 80> 86> 95> 93> 88> 118> 137> 103> 94 ALT-65> 70> 63> 59> 55> 54> 53> 52>> 56> 49>54> 61> 55> 58 Albumin 3.3> 2.9> 2.9> 2.9> 2.8> 2.9> > 3.0 >2.6> 2.7 > 2.7> 2.6> 2.7 Urine culture on 05/07/2024 preliminary >100,000 CFU/mL Klebsiella pneumoniae ESBL, on meropenem 05/08/2024- the patient was noted to go into an atrial fibrillation with rapid ventricular response. ER staff administered diltiazem 20 mg IV once. [id number] VASc score: 1 point, HAS-BLED: score: 2 points. 04/15/2019 MRSA screening negative, 05/13/2024 respiratory culture no growth 05/15/2024 Blood culture no growth 05/08/2024-blood culture preliminary no growth MRSA screening negative Provider Called and spoke to patient's Lorna, , discussed patient's current medical condition, plan of care and answered her questions Objective vital signs Vital Sign Date Time Temp Pulse Resp B/P (MAP) Pulse Ox O2 Delivery O2 Flow Rate FiO2 05/19/24 06:33 99 22 117/57 (26) 93 45 05/19/24 06:00 Mechanical Ventilator+ 05/19/24 04:00 99.3 99.3 Total Intake and Output 05/18/24 05/18/24 05/19/24 14:59 22:59 06:59 Intake Total 303.640 ml 525.001 ml 601.628 ml Output Total 250 ml 350 ml Balance 303.640 ml 275.001 ml 251.628 ml medications Current Medications Medications Dose Ordered Sig/Kenisha Route Start Time Stop Time Status Last Admin Dose Admin Sodium Chloride 10 ml Q8HR IV 05/07/24 06:00 05/19/24 05:43 10 ML Ondansetron HCl 4 mg Q4HP PRN IV 05/06/24 22:15 Docusate Sodium 100 mg BIDPRN PRN PO 05/06/24 22:15 Pantoprazole Sodium 40 mg BID IV 05/08/24 22:00 05/18/24 21:39 40 MG Rifaximin 550 mg BID PO 05/09/24 22:00 05/18/24 21:40 550 MG Thiamine HCl 100 mg DAILY IV 05/10/24 10:00 05/18/24 08:09 100 MG Flecainide Acetate 100 mg Q12HR PO 05/09/24 22:00 05/18/24 21:40 100 MG Folic Acid 1 mg DAILY PO 05/11/24 10:00 05/18/24 08:10 1 MG Diagnostic Test (Pha) 1 strip Q6HR 05/10/24 18:00 05/19/24 06:08 1 STRIP Insulin Human Regular FOLLOW SLIDING SCALE Q6HR SC 05/10/24 18:00 05/19/24 06:06 4 UNITS Dextrose 50 ml UD IV 05/10/24 17:15 Albuterol 2.5 mg Q6HPRN PRN NEB 05/11/24 06:30 05/15/24 12:51 2.5 MG Ipratropium [place] 0.5 mg Q6HPRN PRN NEB 05/11/24 06:30 05/15/24 12:52 0.5 MG Enteral Nutritional Formula 1,000 ml 30ML/HR GT 05/12/24 12:45 05/15/24 20:42 1,000 ML Sodium Chloride 10 ml QSHIFT@10,22 IV 05/13/24 22:00 05/18/24 21:41 10 ML Fentanyl Citrate 250 ml @ 2.5 mls/hr Q24H IV 05/14/24 04:45 05/17/24 15:14 22.5 MLS/HR Albuterol 2.5 mg Q4HR NEB 05/15/24 14:00 05/19/24 06:28 2.5 MG Ipratropium [place] 0.5 mg Q4HR NEB 05/15/24 14:00 05/19/24 06:28 0.5 MG Lactulose 30 ml Q4HR NG 05/16/24 07:00 05/19/24 05:44 30 ML Bumetanide 1 mg BIDD IV 05/16/24 18:00 05/19/24 05:43 1 MG Phenylephrine HCl 80 mg/Sodium Chloride 250 ml @ 7.5 mls/hr Q24H IV 05/16/24 11:15 Norepinephrine Bitartrate 32 mg/ Sodium Chloride 250 ml @ 0.938 mls/ hr Q24H IV 05/16/24 11:15 05/17/24 09:06 8.438 MLS/HR Metoclopramide HCl 5 mg Q8HR IV 05/16/24 22:00 05/19/24 05:41 5 MG Meropenem 50 ml @ 17 mls/hr Q12HR IV 05/18/24 10:00 05/18/24 21:39 17 MLS/HR Ursodiol 300 mg BID PO 05/17/24 10:00 05/18/24 21:39 300 MG Dexmedetomidine HCl 400 mcg/ Dextrose 100 ml @ 5.96 mls/hr [id number] IV 05/18/24 10:15 Purified Water 400 ml Q6HR GT 05/18/24 18:00 05/19/24 05:44 400 ML Examination General examination- HEENT- PEERLA, no acute nasal discharge Cardiovascular- S1-S2 audible, rate and rhythm regular, no murmur Respiratory- CTAB, no wheeze or rhonchi Gastrointestinal-nontender, bowel sound+. Abdomen distended+, abdominal hernia noted Musculoskeletal-no acute joint swelling or tenderness or redness# Lower extremity- + bilateral leg edema+, hand swelling+ Psychiatry- drowsy, dizzy Skin- bilateral lower extremity skin pigmentation laboratory and microbiology Laboratory Tests 05/19/24 03:20 Test 05/19/24 03:20 Range/Units Serum Glucose 189 H 74-106 mg/dL Microbiology Date/Time Source Procedure Growth Status 3/30/25 09:22 Blood Blood Culture - Preliminary NO GROWTH AFTER 72 HOURS OF INCUBATION. Resulted 05/13/24 14:00 Nose MRSA Screen - Final Complete 05/13/24 13:55 Sputum Gram Stain - Final Complete 05/13/24 13:55 Sputum Respiratory Culture - Final Complete 05/07/24 01:30 Voided Urine Urine Culture - Final Klebsiella pneumoniae - ESBL Complete Problem List/Assessment/Plan Problem List/Assessment/Plan Assessment and plan Neurology -hepatic encephalopathy/toxic encephalopathy/metabolic encephalopathy due to cirrhosis of liver Septic shock -substance abuse -amphetamine -patient on mechanical ventilation, on sedation -avoid dehydration and nephrotoxic and hepatotoxic Cardiovascular -Atrial fibrillation with rapid ventricular response, new onset -CHF likely diastolic, LVEF 60%, -acute pulmonary edema -NSTEMI type 2 likely demand led ischemia -amiodarone drip as per Cardiology recommendation -continue current management Respiratory -bilateral aspiration pneumonia -acute hypoxic respiratory failure likely due to pneumonia Gram-positive versus Gram-negative Acute hypercarbic respiratory failure -continue current management Gastrointestinal -hepatic encephalopathy -hepatitis-C positive -cirrhosis of liver-on Bland shunt placed 10 years before -Hepatitis-C decompensated liver cirrhosis with anasarca, - trace ascites, coagulopathy, -melena -transaminitis -suspected spontaneous bacterial peritonitis --continue rifaximin -discontinued methylprednisolone on 05/18/2024 Continue ertapenem as prescribed -avoid dehydration and nephrotoxic and hepatotoxic drugs -status post gastroenterology consult Genitourinary/renal -hepatorenal syndrome -Constipation - dehydration and hepatotoxic and nephrotoxic drugs Infectious -septic shock due to UTI/pneumonia -suspected spontaneous bacterial peritonitis -Urine culture on 05/07/2024 preliminary >100,000 CFU/mL Klebsiella pneumoniae ESBL Continue IV meropenem as prescribed 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 Ag , nursing staff, Total time spent on patient evaluation, chart review, assessment and plan, Critical time spent including mechanical ventilation excluding procedure 81 minutes Plan discussed with: Spouse (RN), Other (RN) My Orders My Orders Orders - JONNY KENNEDY Procedure Category Date Status Time Abg W/ Co-Ox RT 05/19/24 Logged 04:00 Chest Portable XY 05/19/24 Resulted 04:00 Dietary Evaluation Review Comments: 1. Per RN, pt is able to drink liquid but unable to manage jello. Will Downgrade his CCHO-60 diet to pureed texture. 2. offer Glucern BID if PO is still poor 3. elevated BUN, f/u and reassess after pt has a GI and nephrology consult. 4. consider clinimix as a form of protein supplementation as pt has very low albumin. Expected Outcomes/Goals: Gradual wt loss, better DM control. Date of Service: May 19, 2024 Billing Provider: DANELLE AG MD Common Visit Codes: NOT BILLABLE JONNY KENNEDY May 19, 2024 07:17 DANELLE AG MD May 31, 2024 09:46
[2024-05-19] MEDS: SOD CHL 0.45% 1,000 ML IV ONE (09:15)
--- NOTE | 2024-05-19 11:04 | DVHPN2 ---
Progress Note Date Seen: May 19, 2024 Medical Necessity Reason Pt with a Central, PICC or Fol: Yes The following are medically ne: PICC Line, Mcduffie Catheter Reason for mcduffie catheter: Strict I&O Subjective Patient reports: Other (Patient intubated, family bedside) Review of Systems: Deferred Objective vital signs Vital Sign Date Time Temp Pulse Resp B/P (MAP) Pulse Ox O2 Delivery O2 Flow Rate FiO2 05/19/24 10:55 109 22 99/52 (68) 94 45 05/19/24 10:00 Mechanical Ventilator+ 05/19/24 08:00 98.4 98.4 Total Intake and Output 05/18/24 05/18/24 05/19/24 15:00 23:00 07:00 Intake Total 261.980 ml 543.251 ml 585.566 ml Output Total 250 ml 350 ml Balance 261.980 ml 293.251 ml 235.566 ml medications Current Medications Medications Dose Ordered Sig/Kenisha Route Start Time Stop Time Status Last Admin Dose Admin Sodium Chloride 10 ml Q8HR IV 05/07/24 06:00 05/19/24 05:43 10 ML Ondansetron HCl 4 mg Q4HP PRN IV 05/06/24 22:15 Docusate Sodium 100 mg BIDPRN PRN PO 05/06/24 22:15 Pantoprazole Sodium 40 mg BID IV 05/08/24 22:00 05/19/24 10:21 40 MG Rifaximin 550 mg BID PO 05/09/24 22:00 05/19/24 10:20 550 MG Thiamine HCl 100 mg DAILY IV 05/10/24 10:00 05/19/24 10:21 100 MG Flecainide Acetate 100 mg Q12HR PO 05/09/24 22:00 05/19/24 10:20 100 MG Folic Acid 1 mg DAILY PO 05/11/24 10:00 05/19/24 10:20 1 MG Diagnostic Test (Pha) 1 strip Q6HR 05/10/24 18:00 05/19/24 06:08 1 STRIP Insulin Human Regular FOLLOW SLIDING SCALE Q6HR SC 05/10/24 18:00 05/19/24 06:06 4 UNITS Dextrose 50 ml UD IV 05/10/24 17:15 Albuterol 2.5 mg Q6HPRN PRN NEB 05/11/24 06:30 05/15/24 12:51 2.5 MG Ipratropium [place] 0.5 mg Q6HPRN PRN NEB 05/11/24 06:30 05/15/24 12:52 0.5 MG Enteral Nutritional Formula 1,000 ml 30ML/HR GT 05/12/24 12:45 05/15/24 20:42 1,000 ML Sodium Chloride 10 ml QSHIFT@10,22 IV 05/13/24 22:00 05/19/24 10:21 10 ML Fentanyl Citrate 250 ml @ 2.5 mls/hr Q24H IV 05/14/24 04:45 05/17/24 15:14 22.5 MLS/HR Albuterol 2.5 mg Q4HR NEB 05/15/24 14:00 05/19/24 06:28 2.5 MG Ipratropium [place] 0.5 mg Q4HR NEB 05/15/24 14:00 05/19/24 06:28 0.5 MG Lactulose 30 ml Q4HR NG 05/16/24 07:00 05/19/24 10:20 30 ML Phenylephrine HCl 80 mg/Sodium Chloride 250 ml @ 7.5 mls/hr Q24H IV 05/16/24 11:15 Norepinephrine Bitartrate 32 mg/ Sodium Chloride 250 ml @ 0.938 mls/ hr Q24H IV 05/16/24 11:15 05/17/24 09:06 8.438 MLS/HR Metoclopramide HCl 5 mg Q8HR IV 05/16/24 22:00 05/19/24 05:41 5 MG Meropenem 50 ml @ 17 mls/hr Q12HR IV 05/18/24 10:00 05/19/24 10:20 17 MLS/HR Ursodiol 300 mg BID PO 05/17/24 10:00 05/19/24 10:20 300 MG Dexmedetomidine HCl 400 mcg/ Dextrose 100 ml @ 5.96 mls/hr [id number] IV 05/18/24 10:15 Purified Water 400 ml Q6HR GT 05/18/24 18:00 05/19/24 05:44 400 ML Examination: GENERAL:Abnormal, LUNGS:Abnormal, MSK:Abnormal, NEURO:Abnormal laboratory and microbiology Laboratory Tests 05/19/24 03:20 Test 05/19/24 03:20 Range/Units Serum Glucose 189 H 74-106 mg/dL Microbiology Date/Time Source Procedure Growth Status 05/15/24 09:22 Blood Blood Culture - Preliminary NO GROWTH AFTER 72 HOURS OF INCUBATION. Resulted 05/13/24 14:00 Nose MRSA Screen - Final Complete 05/13/24 13:55 Sputum Gram Stain - Final Complete 05/13/24 13:55 Sputum Respiratory Culture - Final Complete 05/07/24 01:30 Voided Urine Urine Culture - Final Klebsiella pneumoniae - ESBL Complete Problem List/Assessment/Plan Problem List/Assessment/Plan Acute kidney injury hemodynamically mediated in the setting of hypotension and shock +contrast Acute respiratory failure in the setting of aspiration pneumonia Hypernatremia Hepatic encephalopathy Decompensated liver cirrhosis \ Acute methamphetamine intoxication Hepatitis-C Multidrug resistant ESBL urinary tract infection Aspiration pneumonia recs Free water for sodium correction as ordered Hold Bumex 1 L half NS as ordered Plan discussed with: Other My Orders My Orders Orders - YANELY CHEATHAM MD Procedure Category Date Status Time Free Water PHA 05/18/24 In Process 18:00 Sod Chl 0.45% (Sodium PHA 05/19/24 In Process Chloride 0.45% Via 09:15 Dietary Evaluation Review Comments: 1. Per RN, pt is able to drink liquid but unable to manage jello. Will Downgrade his CCHO-60 diet to pureed texture. 2. offer Glucern BID if PO is still poor 3. elevated BUN, f/u and reassess after pt has a GI and nephrology consult. 4. consider clinimix as a form of protein supplementation as pt has very low albumin. Expected Outcomes/Goals: Gradual wt loss, better DM control. YANELY CHEATHAM MD May 19, 2024 11:04
[2024-05-20] VITALS (110 sets, daily range): BP systolic 85–121; BP diastolic 39–67; PULSE 98–114; RESP 10–26; TEMP 96.2–99.1; O2SAT 93–100
[2024-05-20 04:12] LABS: Basophils # (auto) 0 10 ^3/uL (0-0.2); Basophils % (auto) 0.2 % (0.0-2.0); Eosinophils # (auto) 0 10 ^3/uL (0-0.8); Hematocrit 28.9 % (41.0-53.0); Lymphocytes # (auto) 0.3 10 ^3/uL (0.4-5.4); Lymphocytes % (auto) 2.6 % (10.0-50.0); Mean Corpuscular Hemoglobin 29.5 pg (28.0-32.0); Mean Corpuscular Hgb Conc. 31.1 g/dL (32.0-36.0); Monocytes # (auto) 0.8 10 ^3/uL (0-1.3); Monocytes % (auto) 7.5 % (0.0-12.0); Neutrophils # (auto) 9.6 10 ^3/uL (1.6-8.6); Neutrophils % (auto) 89.7 % (37.0-80.0); Nucleated Red Blood Cells % 0.7 %; Platelet Count (auto) 113 10^3/uL (140-450); Red Blood Cells 3.04 10^6/uL (4.5-5.90); Red Cell Distribution Width 24.3 % (11.8-14.3); White Blood Cell 10.7 10^3/uL (4.4-10.8)
[2024-05-20 04:25] LABS: INR 1.71 (0.9-1.15); Prothrombin Time 17.2 sec (9.3-11.8)
[2024-05-20 04:36] LABS: Alanine Aminotransferase 58 U/L (7-40); Alkaline Phosphatase 252 U/L (46-116); Anion Gap 11 (5-15); Aspartate Aminotransferase 83 U/L (13-40); Calcium 8.8 mg/dL (8.7-10.4); Carbon Dioxide 24 mmol/L (20-31); Chloride 113 mmol/L (98-107); Glucose 181 mg/dL (74-106); Magnesium 2.9 mg/dL (1.6-2.6); Sodium 148 mmol/L (136-145)
[2024-05-20 04:37] LABS: Albumin 2.7 g/dL (3.2-4.8); BUN/Creatinine Ratio 34.7 (10.0-20.0); Bilirubin, Total 16.6 mg/dL (0.2-1.0); Blood Urea Nitrogen 108 mg/dL (9-23)
--- NOTE | 2024-05-20 05:15 | DVH ---
EXAM: XY CHEST PORTABLE DATE OF SERVICE: 05/20/2024 04:21 AM ORDERING PHYSICIAN: JONNY KENNEDY RESIDENT REASON FOR EXAM: PNA TECHNIQUE: Single frontal view of the chest was obtained COMPARISON: XY CHEST PORTABLE on DOS: 05/19/24, XY CHEST PORTABLE on DOS: 05/18/24, XY CHEST PORTABLE on DOS: 05/17/24, XY CHEST PORTABLE on DOS: 05/17/24, XY CHEST PORTABLE on DOS: 05/11/24, XY CHEST PORTABLE o n DOS: 05/19/24 FINDINGS: Lines and Tubes: Endotracheal tube, enteric catheter and right PICC in satisfactory position. Lungs: Multifocal airspace disease. Pleura: No effusion. No pneumothorax. Cardiomediastinal contours: Unremarkable Bones: Unremarkable IMPRESSION: Lines and tubes in satisfactory position. No significant interval change. End of Report
[2024-05-20 05:41] LABS: Platelet Estimate Decreased
[2024-05-20 05:42] LABS: Anisocytosis Moderate
[2024-05-20 05:43] LABS: Ovalocytes FEW
[2024-05-20 05:44] LABS: Stomatocytes Few; Target Cell FEW
[2024-05-20 06:49] LABS: Base Excess -2.6 mmol/L (-2.0-3.0)
[2024-05-20] MEDS ORDERED: CLINIMIX PER PHARMACY 0 ML IV SCH (09:00)
--- NOTE | 2024-05-20 11:35 | DVHPN2 ---
Progress Note - Dictate Date Seen: May 20, 2024 Medical Necessity Reason Pt with a Central, PICC or Fol: Yes The following are medically ne: PICC Line, Mcduffie Catheter Reason for mcduffie catheter: Strict I&O Subjective Covering for Dr. Romero Patient seen and examined Overnight events reviewed vital signs Vital Sign Date Time Temp Pulse Resp B/P (MAP) Pulse Ox O2 Delivery O2 Flow Rate FiO2 05/20/24 10:17 106 22 103/48 (66) 96 45 05/20/24 10:00 Mechanical Ventilator+ 05/20/24 08:00 98.2 98.2 Total Intake and Output 05/19/24 05/19/24 05/20/24 15:00 23:00 07:00 Intake Total 540.376 ml 2482.441 ml 599.816 ml Output Total 850 ml 1150 ml Balance 540.376 ml 1632.441 ml -550.184 ml medications Current Medications Medications Dose Ordered Sig/Kenisha Route Start Time Stop Time Status Last Admin Dose Admin Sodium Chloride 10 ml Q8HR IV 05/07/24 06:00 05/20/24 06:01 10 ML Ondansetron HCl 4 mg Q4HP PRN IV 05/06/24 22:15 Docusate Sodium 100 mg BIDPRN PRN PO 05/06/24 22:15 Pantoprazole Sodium 40 mg BID IV 05/08/24 22:00 05/20/24 09:27 40 MG Rifaximin 550 mg BID PO 05/09/24 22:00 05/20/24 09:26 550 MG Thiamine HCl 100 mg DAILY IV 05/10/24 10:00 05/20/24 09:27 100 MG Flecainide Acetate 100 mg Q12HR PO 05/09/24 22:00 05/20/24 09:26 100 MG Folic Acid 1 mg DAILY PO 05/11/24 10:00 05/20/24 09:26 1 MG Diagnostic Test (Pha) 1 strip Q6HR 05/10/24 18:00 05/20/24 06:00 1 STRIP Insulin Human Regular FOLLOW SLIDING SCALE Q6HR SC 05/10/24 18:00 05/20/24 06:00 2 UNITS Dextrose 50 ml UD IV 05/10/24 17:15 Albuterol 2.5 mg Q6HPRN PRN NEB 05/11/24 06:30 05/15/24 12:51 [address] 0.5 mg Q6HPRN PRN NEB 05/11/24 06:30 05/15/24 12:52 0.5 MG Enteral Nutritional Formula 1,000 ml 30ML/HR GT 05/12/24 12:45 05/15/24 20:42 1,000 ML Sodium Chloride 10 ml QSHIFT@10,22 IV 05/13/24 22:00 05/20/24 09:27 10 ML Fentanyl Citrate 250 ml @ 2.5 mls/hr Q24H IV 05/14/24 04:45 05/17/24 15:14 22.5 MLS/HR Albuterol 2.5 mg Q4HR NEB 05/15/24 14:00 05/20/24 10:17 [address] 0.5 mg Q4HR NEB 05/15/24 14:00 05/20/24 10:17 0.5 MG Lactulose 30 ml Q4HR NG 05/16/24 07:00 05/19/24 21:48 30 ML Phenylephrine HCl 80 mg/Sodium Chloride 250 ml @ 7.5 mls/hr Q24H IV 05/16/24 11:15 Norepinephrine Bitartrate 32 mg/ Sodium Chloride 250 ml @ 0.938 mls/ hr Q24H IV 05/16/24 11:15 05/17/24 09:06 8.438 MLS/HR Metoclopramide HCl 5 mg Q8HR IV 05/16/24 22:00 05/19/24 21:48 5 MG Meropenem 50 ml @ 17 mls/hr Q12HR IV 05/18/24 10:00 05/20/24 09:27 17 MLS/HR Ursodiol 300 mg BID PO 05/17/24 10:00 05/20/24 09:34 300 MG Dexmedetomidine HCl 400 mcg/ Dextrose 100 ml @ 5.96 mls/hr [id number] IV 05/18/24 10:15 Purified Water 400 ml Q6HR GT 05/18/24 18:00 05/20/24 06:00 400 ML Amino Acids 0 ml @ 0 mls/hr PER PHARMACY IV 05/20/24 09:00 Amino Acids/ Electrolytes/ Dextrose 1,000 ml @ 41 mls/hr DAILY@2200 IV 05/20/24 22:00 laboratory and microbiology Laboratory Tests 05/20/24 03:20 Test 05/20/24 03:20 Range/Units Serum Glucose 181 H 74-106 mg/dL Assessment/Plan Impression Acute hypoxemic respiratory failure Hx of substance abuse Altered mental status Aspiration pneumonia Liver disease Patient seen and examined in ICU Events On mechanical ventilation S/p intubation PEEP 5, FiO2 30% Family at the bedside Off sedation Not waking up Labs and imaging reviewed ABG reviewed Management Vent support Titrate to maintain sats 90% or above Sedation holiday daily If patient follows commands, proceed to weaning trial Pressure support 08/20, extubate when ready Continue antibiotics Bronchodilators Monitor renal function Monitor electrolytes Supplement as needed Pressors as needed for hemodynamic support To maintain a mean arterial pressure of 65 mmHg DVT prophylaxis Critical care time 35 minutes Dietary Evaluation Review Comments: 1. Per RN, pt is able to drink liquid but unable to manage jello. Will Downgrade his CCHO-60 diet to pureed texture. 2. offer Glucern BID if PO is still poor 3. elevated BUN, f/u and reassess after pt has a GI and nephrology consult. 4. consider clinimix as a form of protein supplementation as pt has very low albumin. Expected Outcomes/Goals: Gradual wt loss, better DM control. Plan discussed with: Spouse, Other (Rn) DANELLE STUART MD May 20, 2024 11:35
--- NOTE | 2024-05-20 14:40 | DVHPN2 ---
Progress Note Date Seen: May 20, 2024 Medical Necessity Reason Pt with a Central, PICC or Fol: Yes The following are medically ne: PICC Line, Mcduffie Catheter Reason for mcduffie catheter: Strict I&O Subjective Patient reports: Other ( bedside ) Review of Systems: Deferred Objective vital signs Vital Sign Date Time Temp Pulse Resp B/P (MAP) Pulse Ox O2 Delivery O2 Flow Rate FiO2 05/20/24 13:51 109 22 97/42 (60) 94 45 05/20/24 12:00 97.9 97.9 05/20/24 12:00 Mechanical Ventilator+ Total Intake and Output 05/19/24 05/19/24 05/20/24 14:59 22:59 06:59 Intake Total 468.189 ml 1541.378 ml 1614.941 ml Output Total 850 ml 1150 ml Balance 468.189 ml 691.378 ml 464.941 ml medications Current Medications Medications Dose Ordered Sig/Kenisha Route Start Time Stop Time Status Last Admin Dose Admin Sodium Chloride 10 ml Q8HR IV 05/07/24 06:00 05/20/24 13:56 10 ML Ondansetron HCl 4 mg Q4HP PRN IV 05/06/24 22:15 Docusate Sodium 100 mg BIDPRN PRN PO 05/06/24 22:15 Pantoprazole Sodium 40 mg BID IV 05/08/24 22:00 05/20/24 09:27 40 MG Rifaximin 550 mg BID PO 05/09/24 22:00 05/20/24 09:26 550 MG Thiamine HCl 100 mg DAILY IV 05/10/24 10:00 05/20/24 09:27 100 MG Flecainide Acetate 100 mg Q12HR PO 05/09/24 22:00 05/20/24 09:26 100 MG Folic Acid 1 mg DAILY PO 05/11/24 10:00 05/20/24 09:26 1 MG Diagnostic Test (Pha) 1 strip Q6HR 05/10/24 18:00 05/20/24 12:19 1 STRIP Insulin Human Regular FOLLOW SLIDING SCALE Q6HR SC 05/10/24 18:00 05/20/24 12:22 2 UNITS Dextrose 50 ml UD IV 05/10/24 17:15 Albuterol 2.5 mg Q6HPRN PRN NEB 05/11/24 06:30 05/15/24 12:51 2.5 MG Ipratropium [place] 0.5 mg Q6HPRN PRN NEB 05/11/24 06:30 05/15/24 12:52 0.5 MG Enteral Nutritional Formula 1,000 ml 30ML/HR GT 05/12/24 12:45 05/15/24 20:42 1,000 ML Sodium Chloride 10 ml QSHIFT@10,22 IV 05/13/24 22:00 05/20/24 09:27 10 ML Fentanyl Citrate 250 ml @ 2.5 mls/hr Q24H IV 05/14/24 04:45 05/17/24 15:14 22.5 MLS/HR Albuterol 2.5 mg Q4HR NEB 05/15/24 14:00 05/20/24 13:51 2.5 MG Ipratropium [place] 0.5 mg Q4HR NEB 05/15/24 14:00 05/20/24 13:51 0.5 MG Lactulose 30 ml Q4HR NG 05/16/24 07:00 05/19/24 21:48 30 ML Phenylephrine HCl 80 mg/Sodium Chloride 250 ml @ 7.5 mls/hr Q24H IV 05/16/24 11:15 Norepinephrine Bitartrate 32 mg/ Sodium Chloride 250 ml @ 0.938 mls/ hr Q24H IV 05/16/24 11:15 05/17/24 09:06 8.438 MLS/HR Metoclopramide HCl 5 mg Q8HR IV 05/16/24 22:00 05/19/24 21:48 5 MG Meropenem 50 ml @ 17 mls/hr Q12HR IV 05/18/24 10:00 05/20/24 09:27 17 MLS/HR Ursodiol 300 mg BID PO 05/17/24 10:00 05/20/24 09:34 300 MG Dexmedetomidine HCl 400 mcg/ Dextrose 100 ml @ 5.96 mls/hr [id number] IV 05/18/24 10:15 Purified Water 400 ml Q6HR GT 05/18/24 18:00 05/20/24 12:19 400 ML Amino Acids 0 ml @ 0 mls/hr PER PHARMACY IV 05/20/24 09:00 Amino Acids/ Electrolytes/ Dextrose 1,000 ml @ 41 mls/hr DAILY@2200 IV 05/20/24 22:00 Examination: GENERAL:Abnormal, LUNGS:Abnormal, MSK:Abnormal, SKIN:Abnormal, NEURO:Abnormal laboratory and microbiology Laboratory Tests 05/20/24 03:20 Test 05/20/24 03:20 Range/Units Serum Glucose 181 H 74-106 mg/dL Microbiology Date/Time Source Procedure Growth Status 05/15/24 09:22 Blood Blood Culture - Final NO GROWTH AFTER 5 DAYS OF INCUBATION. Complete 05/13/24 14:00 Nose MRSA Screen - Final Complete 05/13/24 13:55 Sputum Gram Stain - Final Complete 05/13/24 13:55 Sputum Respiratory Culture - Final Complete 05/07/24 01:30 Voided Urine Urine Culture - Final Klebsiella pneumoniae - ESBL Complete Problem List/Assessment/Plan Problem List/Assessment/Plan Acute kidney injury hemodynamically mediated in the setting of hypotension and shock +contrast Acute respiratory failure in the setting of aspiration pneumonia shock septic Hypernatremia Hepatic encephalopathy Decompensated liver cirrhosis \ Acute methamphetamine intoxication heavy alcoholism Hepatitis-C Multidrug resistant ESBL urinary tract infection Aspiration pneumonia recs on levophed lasix iv bid free water for Na correction Plan discussed with: Spouse, Other My Orders My Orders Orders - YANELY CHEATHAM MD Procedure Category Date Status Time Furosemide Injection PHA 05/20/24 Verified (Lasix Injection) 18:00 Dietary Evaluation Review Comments: 1. Per RN, pt is able to drink liquid but unable to manage jello. Will Downgrade his CCHO-60 diet to pureed texture. 2. offer Glucern BID if PO is still poor 3. elevated BUN, f/u and reassess after pt has a GI and nephrology consult. 4. consider clinimix as a form of protein supplementation as pt has very low albumin. Expected Outcomes/Goals: Gradual wt loss, better DM control. YANELY CHEATHAM MD May 20, 2024 14:40
--- NOTE | 2024-05-20 17:14 | DVHPN2 ---
Progress Note - Dictate Date Seen: May 20, 2024 Medical Necessity Reason Pt with a Central, PICC or Fol: Yes The following are medically ne: PICC Line, Mcduffie Catheter Reason for mcduffie catheter: Strict I&O Subjective Patient is still not waking up, he is off sedation Patient had high gastric residuals yesterday history of the tube feedings were held Patient was started on Reglan 5 mg IV q.8 hours Today is tube feedings have been resumed at a low rate and we will monitor his residuals Patient has also been started on IV Clinimix at 42 mL/hour vital signs Vital Sign Date Time Temp Pulse Resp B/P (MAP) Pulse Ox O2 Delivery O2 Flow Rate FiO2 05/20/24 16:31 108 24 105/51 (69) 96 45 05/20/24 16:00 Mechanical Ventilator+ 05/20/24 15:45 99.1 99.1 Total Intake and Output 05/19/24 05/19/24 05/20/24 15:00 23:00 07:00 Intake Total 540.376 ml 2482.441 ml 599.816 ml Output Total 850 ml 1150 ml Balance 540.376 ml 1632.441 ml -550.184 ml medications Current Medications Medications Dose Ordered Sig/Kenisha Route Start Time Stop Time Status Last Admin Dose Admin Sodium Chloride 10 ml Q8HR IV 05/07/24 06:00 05/20/24 13:56 10 ML Ondansetron HCl 4 mg Q4HP PRN IV 05/06/24 22:15 Docusate Sodium 100 mg BIDPRN PRN PO 05/06/24 22:15 Pantoprazole Sodium 40 mg BID IV 05/08/24 22:00 05/20/24 09:27 40 MG Rifaximin 550 mg BID PO 05/09/24 22:00 05/20/24 09:26 550 MG Thiamine HCl 100 mg DAILY IV 05/10/24 10:00 05/20/24 09:27 100 MG Flecainide Acetate 100 mg Q12HR PO 05/09/24 22:00 05/20/24 09:26 100 MG Folic Acid 1 mg DAILY PO 05/11/24 10:00 05/20/24 09:26 1 MG Diagnostic Test (Pha) 1 strip Q6HR 05/10/24 18:00 05/20/24 12:19 1 STRIP Insulin Human Regular FOLLOW SLIDING SCALE Q6HR SC 05/10/24 18:00 05/20/24 12:22 2 UNITS Dextrose 50 ml UD IV 05/10/24 17:15 Albuterol 2.5 mg Q6HPRN PRN NEB 05/11/24 06:30 05/15/24 12:51 2.5 MG Ipratropium [place] 0.5 mg Q6HPRN PRN NEB 05/11/24 06:30 05/15/24 12:52 0.5 MG Enteral Nutritional Formula 1,000 ml 30ML/HR GT 05/12/24 12:45 05/15/24 20:42 1,000 ML Sodium Chloride 10 ml QSHIFT@10,22 IV 05/13/24 22:00 05/20/24 09:27 10 ML Fentanyl Citrate 250 ml @ 2.5 mls/hr Q24H IV 05/14/24 04:45 05/17/24 15:14 22.5 MLS/HR Albuterol 2.5 mg Q4HR NEB 05/15/24 14:00 05/20/24 13:51 2.5 MG Ipratropium [place] 0.5 mg Q4HR NEB 05/15/24 14:00 05/20/24 13:51 0.5 MG Lactulose 30 ml Q4HR NG 05/16/24 07:00 05/19/24 21:48 30 ML Phenylephrine HCl 80 mg/Sodium Chloride 250 ml @ 7.5 mls/hr Q24H IV 05/16/24 11:15 Norepinephrine Bitartrate 32 mg/ Sodium Chloride 250 ml @ 0.938 mls/ hr Q24H IV 05/16/24 11:15 05/17/24 09:06 8.438 MLS/HR Metoclopramide HCl 5 mg Q8HR IV 05/16/24 22:00 05/19/24 21:48 5 MG Meropenem 50 ml @ 17 mls/hr Q12HR IV 05/18/24 10:00 05/20/24 09:27 17 MLS/HR Ursodiol 300 mg BID PO 05/17/24 10:00 05/20/24 09:34 300 MG Dexmedetomidine HCl 400 mcg/ Dextrose 100 ml @ 5.96 mls/hr [id number] IV 05/18/24 10:15 Purified Water 400 ml Q6HR GT 05/18/24 18:00 05/20/24 12:19 400 ML Amino Acids 0 ml @ 0 mls/hr PER PHARMACY IV 05/20/24 09:00 Amino Acids/ Electrolytes/ Dextrose 1,000 ml @ 41 mls/hr DAILY@2200 IV 05/20/24 22:00 Furosemide 40 mg BIDD IV 05/20/24 18:00 objective General: Intubated sedated HEENT: NC/AT EOMI dry mucous membranes Heart: Tachycardic regular rhythm Abdomen: Soft nontender nondistended Extremity: No clubbing cyanosis or edema laboratory and microbiology Laboratory Tests 05/20/24 03:20 Test 05/20/24 03:20 Range/Units Serum Glucose 181 H 74-106 mg/dL Problems(with codes): (1) Aspiration pneumonia (2) MRSA (methicillin resistant Staphylococcus aureus) septicemia (3) Hepatitis C (4) Liver failure (5) Cirrhosis (6) Ascites (7) Pulmonary vascular congestion (8) Anemia, unspecified (9) Generalized weakness (10) Hepatic encephalopathy (11) Altered mental status Prognosis Plan Clinimix 42 mL/hour as per nurse request because of patient's high residuals I would try to give him trickle tube feedings In the meantime consider neuro evaluation as the patient has underlying altered level of consciousness possible dementia since admission Dietary Evaluation Review Comments: 1. Per RN, pt is able to drink liquid but unable to manage jello. Will Downgrade his CCHO-60 diet to pureed texture. 2. offer Glucern BID if PO is still poor 3. elevated BUN, f/u and reassess after pt has a GI and nephrology consult. 4. consider clinimix as a form of protein supplementation as pt has very low albumin. Expected Outcomes/Goals: Gradual wt loss, better DM control. Plan discussed with: Other (ICU Nurse) PAULINA BAINS MD May 20, 2024 17:14
[2024-05-20] MEDS: FUROSEMIDE 40 MG/4 ML VIAL IV SCH (17:40)
[2024-05-20] MEDS: AMINO ACID INFUSION IN D10W 1,000 ML IV SCH (22:22)
[2024-05-21] VITALS (112 sets, daily range): BP systolic 95–144; BP diastolic 47–120; PULSE 104–116; RESP 10–26; TEMP 98–98.2; O2SAT 90–99
[2024-05-21 03:45] LABS: Basophils # (auto) 0 10 ^3/uL (0-0.2); Basophils % (auto) 0.2 % (0.0-2.0); Eosinophils # (auto) 0 10 ^3/uL (0-0.8); Eosinophils % (auto) 0.1 % (0.0-7.0); Hematocrit 28.3 % (41.0-53.0); Hemoglobin 8.9 g/dL (13.5-17.5); Lymphocytes # (auto) 0.4 10 ^3/uL (0.4-5.4); Mean Corpuscular Hemoglobin 29.5 pg (28.0-32.0); Mean Corpuscular Hgb Conc. 31.4 g/dL (32.0-36.0); Mean Corpuscular Volume 94.1 fL (80.0-100.0); Monocytes # (auto) 0.6 10 ^3/uL (0-1.3); Monocytes % (auto) 5.3 % (0.0-12.0); Neutrophils # (auto) 11.1 10 ^3/uL (1.6-8.6); Neutrophils % (auto) 91.4 % (37.0-80.0); Nucleated Red Blood Cells % 1.1 %; Platelet Count (auto) 96 10^3/uL (140-450); Red Blood Cells 3.01 10^6/uL (4.5-5.90); White Blood Cell 12.2 10^3/uL (4.4-10.8)
[2024-05-21 03:58] LABS: Red Cell Distribution Width 25.3 % (11.8-14.3)
[2024-05-21 04:10] LABS: Anion Gap 12 (5-15); BUN/Creatinine Ratio 39.3 (10.0-20.0); Calcium 8.8 mg/dL (8.7-10.4); Carbon Dioxide 24 mmol/L (20-31); Potassium 3.7 mmol/L (3.5-5.1)
[2024-05-21 04:11] LABS: Alanine Aminotransferase 61 U/L (7-40); Albumin 2.7 g/dL (3.2-4.8); Alkaline Phosphatase 262 U/L (46-116); Aspartate Aminotransferase 91 U/L (13-40); Bilirubin, Total 16.9 mg/dL (0.2-1.0); Chloride 115 mmol/L (98-107); Glucose 193 mg/dL (74-106); Magnesium 2.9 mg/dL (1.6-2.6); Phosphorus 5.5 mg/dL (2.4-5.1); Sodium 151 mmol/L (136-145)
[2024-05-21 04:13] LABS: Blood Urea Nitrogen 114 mg/dL (9-23)
[2024-05-21 04:39] LABS: Triglycerides 166 mg/dL (< 150)
[2024-05-21 04:53] LABS: Anisocytosis Moderate; Ovalocytes FEW; Platelet Estimate Decreased; Tear Drop Cells FEW
[2024-05-21] MEDS: D5W 5% 1,000 ML IV SCH (09:45)
--- NOTE | 2024-05-21 11:13 | DVH ---
EXAM: XR Chest, 1 View CLINICAL INDICATION: intubated TECHNIQUE: Frontal view of the chest. COMPARISON: XY CHEST PORTABLE on DOS: 05/20/24, XY CHEST PORTABLE on DOS: 05/19/24, XY CHEST PORTABLE o n DOS: 05/18/24, XY CHEST PORTABLE on DOS: 05/17/24, XY CHEST PORTABLE on DOS: 05/17/24 FINDINGS: LUNGS AND PLEURAL SPACES: Bibasilar atelectasis or pneumonia. No consolidation. No pneumothorax. HEART: Unremarkable. No cardiomegaly. MEDIASTINUM: Unremarkable. Normal mediastinal contour. BONES/JOINTS: Unremarkable. No acute fracture. TUBES, LINES AND DEVICES: The endotracheal tube (ETT) is in satisfactory position. Right periphera lly inserted central catheter (PICC) tip in the superior vena cava. OTHER FINDINGS: . IMPRESSION: Bibasilar atelectasis or pneumonia
--- NOTE | 2024-05-21 11:27 | ECG ---
[facility] Test Date: 2024-05-17 Test Time: 16:09:41 Pat Name: AISHA CARDOZO Department: icu Room: [address] [place] [address] A Gender: M [employer] Hand: LENIN : 1960 Requested By: JONNY KENNEDY Order Number: [id number] Reading MD: Luis Roberson Measurements Intervals [place] Rate: 96 P: 263 VT: 136 QRS: 59 QRSD: 113 T: 265 QT: 366 QTc: 463 Interpretive Statements Ectopic atrial rhythm Borderline intraventricular conduction delay Repol abnrm, severe global ischemia (LM/MVD) Baseline wander in lead(s) V6 Electronically Signed On 05-21-2024 17:17:20 PDT by Luis Roberson Please click the below link to view image of tracing.
--- NOTE | 2024-05-21 16:06 | DVHPN2 ---
Progress Note Date Seen: May 21, 2024 Medical Necessity Reason Pt with a Central, PICC or Fol: Yes The following are medically ne: PICC Line, Mcduffie Catheter Reason for mcduffie catheter: Strict I&O Subjective Patient reports: Other Review of Systems: Deferred Objective vital signs Vital Sign Date Time Temp Pulse Resp B/P (MAP) Pulse Ox O2 Delivery O2 Flow Rate FiO2 05/21/24 14:45 112 15 114/64 (81) 91 05/21/24 14:14 45 05/21/24 14:00 Mechanical Ventilator+ 05/21/24 12:00 98.0 98.0 Total Intake and Output 05/20/24 05/20/24 05/21/24 15:00 23:00 07:00 Intake Total 95.063 ml 1003.000 ml 1305.126 ml Output Total 825 ml 2100 ml Balance 95.063 ml 178.000 ml -794.874 ml medications Current Medications Medications Dose Ordered Sig/Kenisha Route Start Time Stop Time Status Last Admin Dose Admin Sodium Chloride 10 ml Q8HR IV 05/07/24 06:00 05/21/24 14:23 10 ML Ondansetron HCl 4 mg Q4HP PRN IV 05/06/24 22:15 Docusate Sodium 100 mg BIDPRN PRN PO 05/06/24 22:15 Pantoprazole Sodium 40 mg BID IV 05/08/24 22:00 05/21/24 09:54 40 MG Thiamine HCl 100 mg DAILY IV 05/10/24 10:00 05/21/24 09:56 100 MG Flecainide Acetate 100 mg Q12HR PO 05/09/24 22:00 05/21/24 09:55 100 MG Folic Acid 1 mg DAILY PO 05/11/24 10:00 05/21/24 09:55 1 MG Diagnostic Test (Pha) 1 strip Q6HR 05/10/24 18:00 05/21/24 12:18 1 STRIP Insulin Human Regular FOLLOW SLIDING SCALE Q6HR SC 05/10/24 18:00 05/21/24 12:18 8 UNITS Dextrose 50 ml UD IV 05/10/24 17:15 Enteral Nutritional Formula 1,000 ml 30ML/HR GT 05/12/24 12:45 05/15/24 20:42 1,000 ML Sodium Chloride 10 ml QSHIFT@ IV 05/13/24 22:00 05/21/24 09:55 10 ML Fentanyl Citrate 250 ml @ 2.5 mls/hr Q24H IV 05/14/24 04:45 05/17/24 15:14 22.5 MLS/HR Albuterol 2.5 mg Q4HR NEB 05/15/24 14:00 05/21/24 14:14 2.5 MG Ipratropium [place] 0.5 mg Q4HR NEB 05/15/24 14:00 05/21/24 14:14 0.5 MG Lactulose 30 ml Q4HR NG 05/16/24 07:00 05/21/24 14:23 30 ML Phenylephrine HCl 80 mg/Sodium Chloride 250 ml @ 7.5 mls/hr Q24H IV 05/16/24 11:15 Norepinephrine Bitartrate 32 mg/ Sodium Chloride 250 ml @ 0.938 mls/ hr Q24H IV 05/16/24 11:15 05/20/24 19:44 5.625 MLS/HR Metoclopramide HCl 5 mg Q8HR IV 05/16/24 22:00 05/21/24 14:23 5 MG Meropenem 50 ml @ 17 mls/hr Q12HR IV 05/18/24 10:00 05/21/24 09:54 17 MLS/HR Ursodiol 300 mg BID PO 05/17/24 10:00 05/21/24 09:56 300 MG Dexmedetomidine HCl 400 mcg/ Dextrose 100 ml @ 5.96 mls/hr [id number] IV 05/18/24 10:15 Purified Water 400 ml Q6HR GT 05/18/24 18:00 05/21/24 12:17 400 ML Amino Acids 0 ml @ 0 mls/hr PER PHARMACY IV 05/20/24 09:00 Amino Acids/ Electrolytes/ Dextrose 1,000 ml @ 41 mls/hr DAILY@2200 IV 05/20/24 22:00 05/20/24 22:22 41 MLS/HR Furosemide 40 mg BIDD IV 05/20/24 18:00 05/21/24 05:47 40 MG Dextrose 1,000 ml @ 100 mls/hr Q10H IV 05/21/24 09:45 05/21/24 09:45 100 MLS/HR Examination: GENERAL:Abnormal, LUNGS:Abnormal, MSK:Abnormal, SKIN:Abnormal laboratory and microbiology Laboratory Tests 05/21/24 03:24 Test 05/21/24 03:24 Range/Units Serum Glucose 193 H 74-106 mg/dL Microbiology Date/Time Source Procedure Growth Status 05/15/24 09:22 Blood Blood Culture - Final NO GROWTH AFTER 5 DAYS OF INCUBATION. Complete 05/13/24 14:00 Nose MRSA Screen - Final Complete 05/13/24 13:55 Sputum Gram Stain - Final Complete 05/13/24 13:55 Sputum Respiratory Culture - Final Complete 05/07/24 01:30 Voided Urine Urine Culture - Final Klebsiella pneumoniae - ESBL Complete Problem List/Assessment/Plan Problem List/Assessment/Plan Acute kidney injury hemodynamically mediated in the setting of hypotension and shock +contrast Acute respiratory failure in the setting of aspiration pneumonia shock septic Hypernatremia Hepatic encephalopathy Decompensated liver cirrhosis \ Acute methamphetamine intoxication heavy alcoholism Hepatitis-C Multidrug resistant ESBL urinary tract infection Aspiration pneumonia recs BUN high likely secondary to TPN, diuretics D5W IV as ordered on levophed lasix iv bid D5W, free water for Na correction Discussed with bedside Plan discussed with: Spouse My Orders My Orders Orders - YANELY CHEATHAM MD Procedure Category Date Status Time D5w 5% (Dextrose 5%) PHA 05/21/24 In Process 09:45 Dietary Evaluation Review Comments: 1. Per RN, pt is able to drink liquid but unable to manage jello. Will Downgrade his CCHO-60 diet to pureed texture. 2. offer Glucern BID if PO is still poor 3. elevated BUN, f/u and reassess after pt has a GI and nephrology consult. 4. consider clinimix as a form of protein supplementation as pt has very low albumin. Expected Outcomes/Goals: Gradual wt loss, better DM control. YANELY CHEATHAM MD May 21, 2024 16:06
--- NOTE | 2024-05-21 16:34 | DVHPN2 ---
Subjective Patient unresponsive Reviewed: Care Plan, H&P, Labs, Medications, Previous Orders, Radiology, Other (Consultations) Changes from previous H/P or p: No Changes General: Per HPI Objective Vitals Vital Signs Date Time Temp Pulse Resp B/P (MAP) Pulse Ox O2 Delivery O2 Flow Rate FiO2 05/21/24 16:07 109 26 110/61 (77) 92 30 05/21/24 14:00 Mechanical Ventilator+ 05/21/24 12:00 98.0 98.0 Intake/Output Intake and Output 05/21/24 07:00 Intake Total 2403.189 ml Output Total 2925 ml Balance -521.811 ml Intake Oral 1800 ml IV Total 603.189 ml Output Urine Total 2625 ml Stool Total 300 ml General Appearance: moderate distress, Other (Encephalopathic) HEENT: Atraumatic, Other (NG tube in place) Lungs: Other (Decreased air entry bilateral with decreased respiratory rate) Cardiovascular: Normal S1, Normal S2, No murmurs, Other (Tachycardia) Abdomen: Normal bowel sounds, Soft, Other (Ventral hernia; reducible; no ascites palpated) Genitourinary: Other (Junior's) Extremities: Normal pulses, Other (Stasis changes of the skin of lower extremities with nonpitting edema) Neuro: Other (Lethargic; opening eyes to painful stimuli) Skin: Dry, Intact Psych/Mental Status: Other (Lethargic) Medications Current Medications Medications Dose Ordered Sig/Kenisha Route Start Time Stop Time Status Last Admin Dose Admin Sodium Chloride 10 ml Q8HR IV 05/07/24 06:00 05/21/24 14:23 10 ML Ondansetron HCl 4 mg Q4HP PRN IV 05/06/24 22:15 Docusate Sodium 100 mg BIDPRN PRN PO 05/06/24 22:15 Pantoprazole Sodium 40 mg BID IV 05/08/24 22:00 05/21/24 09:54 40 MG Thiamine HCl 100 mg DAILY IV 05/10/24 10:00 05/21/24 09:56 100 MG Flecainide Acetate 100 mg Q12HR PO 05/09/24 22:00 05/21/24 09:55 100 MG Folic Acid 1 mg DAILY PO 05/11/24 10:00 05/21/24 09:55 1 MG Diagnostic Test (Pha) 1 strip Q6HR 05/10/24 18:00 05/21/24 12:18 1 STRIP Insulin Human Regular FOLLOW SLIDING SCALE Q6HR SC 05/10/24 18:00 05/21/24 12:18 8 UNITS Dextrose 50 ml UD IV 05/10/24 17:15 Enteral Nutritional Formula 1,000 ml 30ML/HR GT 05/12/24 12:45 05/15/24 20:42 1,000 ML Sodium Chloride 10 ml QSHIFT@10,22 IV 05/13/24 22:00 05/21/24 09:55 10 ML Fentanyl Citrate 250 ml @ 2.5 mls/hr Q24H IV 05/14/24 04:45 05/17/24 15:14 22.5 MLS/HR Albuterol 2.5 mg Q4HR NEB 05/15/24 14:00 05/21/24 14:14 2.5 MG Ipratropium [place] 0.5 mg Q4HR NEB 05/15/24 14:00 05/21/24 14:14 0.5 MG Lactulose 30 ml Q4HR NG 05/16/24 07:00 05/21/24 14:23 30 ML Phenylephrine HCl 80 mg/Sodium Chloride 250 ml @ 7.5 mls/hr Q24H IV 05/16/24 11:15 Norepinephrine Bitartrate 32 mg/ Sodium Chloride 250 ml @ 0.938 mls/ hr Q24H IV 05/16/24 11:15 05/20/24 19:44 5.625 MLS/HR Metoclopramide HCl 5 mg Q8HR IV 05/16/24 22:00 05/21/24 14:23 5 MG Meropenem 50 ml @ 17 mls/hr Q12HR IV 05/18/24 10:00 05/21/24 09:54 17 MLS/HR Ursodiol 300 mg BID PO 05/17/24 10:00 05/21/24 09:56 300 MG Dexmedetomidine HCl 400 mcg/ Dextrose 100 ml @ 5.96 mls/hr [id number] IV 05/18/24 10:15 Purified Water 400 ml Q6HR GT 05/18/24 18:00 05/21/24 12:17 400 ML Amino Acids 0 ml @ 0 mls/hr PER PHARMACY IV 05/20/24 09:00 Amino Acids/ Electrolytes/ Dextrose 1,000 ml @ 41 mls/hr DAILY@2200 IV 05/20/24 22:00 05/20/24 22:22 41 MLS/HR Furosemide 40 mg BIDD IV 05/20/24 18:00 05/21/24 05:47 40 MG Dextrose 1,000 ml @ 100 mls/hr Q10H IV 05/21/24 09:45 05/21/24 09:45 100 MLS/HR Laboratory Results Laboratory Tests 05/21/24 03:24 Chemistry Test 05/21/24 03:24 Albumin 2.7 g/dL (3.2-4.8) L Calcium Level 8.8 mg/dL (8.7-10.4) Magnesium Level 2.9 mg/dL (1.6-2.6) H Phosphorus Level 5.5 mg/dL (2.4-5.1) H Total Protein 6.0 g/dL (5.7-8.2) Lipid panel Test 05/21/24 03:24 Triglycerides Level 166 mg/dL (< 150) H LFT Test 05/21/24 03:24 Alanine Aminotransferase (ALT) 61 U/L (7-40) H Alkaline Phosphatase 262 U/L (46-116) H Aspartate Amino Transferase (AST) 91 U/L (13-40) H Total Bilirubin 16.9 mg/dL (0.2-1.0) H Urinalysis Test 05/07/24 01:30 Urine Color Dark-yellow (Yellow) Urine Clarity Turbid (Clear) H Urine pH 5.5 (5.0-9.0) Urine Specific [place] 1.015 (1.001-1.035) Urine Protein 2+ (Negative) H Urine Ketones Negative (Negative) Urine Blood 2+ /uL (Negative) H Urine Nitrite Negative (Negative) Urine Bilirubin 1+ (Negative) Urine Urobilinogen 2 mg/dL (Negative) H Urine Leukocyte Esterase 3+ /uL (Negative) Urine RBC 8 /hpf (0 - 3) Urine Microscopic WBC 193 /HPF (0-3) H Urine Squamous Epithelial Cells Few /hpf (<5) Urine Bacteria Mod /hpf (None Seen) H Urine Hyaline Casts Few /lpf (0 - 2) Urine Mucus Few (None Seen) Urine Glucose Normal mg/dL (Normal) Blood Gas Results Test 05/21/24 10:08 Arterial Blood pH 7.344 (7.350-7.450) FiO2 % 45.0 Microbiology Microbiology Date/Time Source Procedure Growth Status 05/15/24 09:22 Blood Blood Culture - Final NO GROWTH AFTER 5 DAYS OF INCUBATION. Complete 05/13/24 14:00 Nose MRSA Screen - Final Complete 05/13/24 13:55 Sputum Gram Stain - Final Complete 05/13/24 13:55 Sputum Respiratory Culture - Final Complete 05/07/24 01:30 Voided Urine Urine Culture - Final Klebsiella pneumoniae - ESBL Complete Labs and/or images reviewed: Labs reviewed by me, Image(s) reviewed by me Assessment/Plan Assessment/Plan Impression: -acute hypoxic respiratory failure with mechanical ventilation -metabolic encephalopathy, probable toxic etiology -probable aspiration pneumonia -acute kidney injury, vasomotor nephropathy. Severe azotemia -? GI bleed -hyponatremia -cirrhosis of the liver -sepsis -he was beyond the urine -obesity -anemia of chronic disease -thrombocytopenia Plan: -sedation off, continue CPAP attempts once appropriate -continue current ventilator settings -nephrology consultation: Free water per her orders, D5W. -decrease Lasix to 40 mg IV daily -continue antibiotic therapy with meropenem -continue lactulose -PUD, DVT prophylaxis -repeat labs and chest x-ray in a.m. Critical care time spent with patient discussing and formulating plan of care: 40 minutes. This does not include time spent performing procedures. This medical document was created using an electronic medical record system with [employer] dictation system. Although this document has been carefully reviewed, there may still be some phonetic and typographical errors. These areas are purely typographical due to imperfections of the software programs, and do not reflect any compromise in the patient's medical care. Plan discussed with: Patient, Other (RN) My Orders Orders - BAL GARCIA NP Procedure Category Date Status Time Furosemide Injection PHA 05/22/24 Verified (Lasix Injection) 10:00 Date of Service: May 21, 2024 Billing Provider: BAL GARCIA NP Common Visit Codes: [id number] CARE 30-74 MIN BAL GARCIA NP May 21, 2024 16:34
--- NOTE | 2024-05-21 19:26 | DVHPN2 ---
Progress Note - Dictate Date Seen: May 21, 2024 Medical Necessity Reason Pt with a Central, PICC or Fol: Yes The following are medically ne: PICC Line, Mcduffie Catheter Reason for mcduffie catheter: Strict I&O Subjective Patient seen and examined at bedside. Intubated on mechanical ventilator. Overnight events reviewed. vital signs Vital Sign Date Time Temp Pulse Resp B/P (MAP) Pulse Ox O2 Delivery O2 Flow Rate FiO2 05/21/24 18:18 110 25 123/71 (88) 95 30 05/21/24 18:00 Mechanical Ventilator+ 05/21/24 16:00 98.2 98.2 Total Intake and Output 05/20/24 05/20/24 05/21/24 15:00 23:00 07:00 Intake Total 95.063 ml 1003.000 ml 1305.126 ml Output Total 825 ml 2100 ml Balance 95.063 ml 178.000 ml -794.874 ml medications Current Medications Medications Dose Ordered Sig/Kenisha Route Start Time Stop Time Status Last Admin Dose Admin Sodium Chloride 10 ml Q8HR IV 05/07/24 06:00 05/21/24 14:23 10 ML Ondansetron HCl 4 mg Q4HP PRN IV 05/06/24 22:15 Docusate Sodium 100 mg BIDPRN PRN PO 05/06/24 22:15 Pantoprazole Sodium 40 mg BID IV 05/08/24 22:00 05/21/24 09:54 40 MG Thiamine HCl 100 mg DAILY IV 05/10/24 10:00 05/21/24 09:56 100 MG Flecainide Acetate 100 mg Q12HR PO 05/09/24 22:00 05/21/24 09:55 100 MG Folic Acid 1 mg DAILY PO 05/11/24 10:00 05/21/24 09:55 1 MG Diagnostic Test (Pha) 1 strip Q6HR 05/10/24 18:00 05/21/24 17:37 1 STRIP Insulin Human Regular FOLLOW SLIDING SCALE Q6HR SC 05/10/24 18:00 05/21/24 17:37 8 UNITS Dextrose 50 ml UD IV 05/10/24 17:15 Enteral Nutritional Formula 1,000 ml 30ML/HR GT 05/12/24 12:45 05/15/24 20:42 1,000 ML Sodium Chloride 10 ml QSHIFT@ IV 05/13/24 22:00 05/21/24 09:55 10 ML Fentanyl Citrate 250 ml @ 2.5 mls/hr Q24H IV 05/14/24 04:45 05/17/24 15:14 22.5 MLS/HR Albuterol 2.5 mg Q4HR NEB 05/15/24 14:00 05/21/24 18:07 2.5 MG Ipratropium [place] 0.5 mg Q4HR NEB 05/15/24 14:00 05/21/24 18:08 0.5 MG Lactulose 30 ml Q4HR NG 05/16/24 07:00 05/21/24 17:39 30 ML Phenylephrine HCl 80 mg/Sodium Chloride 250 ml @ 7.5 mls/hr Q24H IV 05/16/24 11:15 Norepinephrine Bitartrate 32 mg/ Sodium Chloride 250 ml @ 0.938 mls/ hr Q24H IV 05/16/24 11:15 05/20/24 19:44 5.625 MLS/HR Metoclopramide HCl 5 mg Q8HR IV 05/16/24 22:00 05/21/24 14:23 5 MG Meropenem 50 ml @ 17 mls/hr Q12HR IV 05/18/24 10:00 05/21/24 09:54 17 MLS/HR Ursodiol 300 mg BID PO 05/17/24 10:00 05/21/24 09:56 300 MG Dexmedetomidine HCl 400 mcg/ Dextrose 100 ml @ 5.96 mls/hr [id number] IV 05/18/24 10:15 Purified Water 400 ml Q6HR GT 05/18/24 18:00 05/21/24 17:39 400 ML Amino Acids 0 ml @ 0 mls/hr PER PHARMACY IV 05/20/24 09:00 Amino Acids/ Electrolytes/ Dextrose 1,000 ml @ 41 mls/hr DAILY@2200 IV 05/20/24 22:00 05/20/24 22:22 41 MLS/HR Dextrose 1,000 ml @ 100 mls/hr Q10H IV 05/21/24 09:45 05/21/24 09:45 100 MLS/HR Furosemide 40 mg DAILY IV 05/22/24 10:00 objective Gen.: Patient lying in bed in medical ICU. Intubated on mechanical ventilator. Head: Normocephalic, atraumatic. Eyes: PERRLA. Ears: Normal external anatomy. Throat: Endotracheal tube and orogastric tube in place. Neck: Supple, trachea midline. Chest: Transmitted breath sounds bilaterally. Decreased air entry bilaterally. No wheezing. Bibasilar crackles. Cardiovascular: Positive S1, positive S2. Regular rate and rhythm. Abdomen: Positive bowel sounds in all 4 quadrants. Soft, nontender, nondistended. : Mcduffie in place. Normal external genitalia. Rectal: Deferred. Skin: Warm, dry. Intact. Extremities: 2+ radial pulses bilaterally. No lower extremity edema. Neuro: Off sedation, unresponsive laboratory and microbiology Laboratory Tests 05/21/24 03:24 Test 05/21/24 03:24 Range/Units Serum Glucose 193 H 74-106 mg/dL Assessment/Plan Impression: Acute hypoxic respiratory failure Acute hypercarbic respiratory failure On mechanical ventilator Metabolic acidosis Drug abuse/methamphetamine abuse Elevated troponin Hepatic encephalopathy Urinary tract infection Pulmonary edema. Nicotine dependence Obesity BMI 36.4 Events: Remains on vent support On AC mode; RR 20, VT 500, PEEP 5, FiO2 45% Off sedation since 05/18/24, unresponsive Pressors for hemodynamic support On Levophed Titrate to keep mean arterial pressure greater than 65 mmHg. Continue bronchodilators Continue antibiotics Clinimix for nutritional support IV fluids with D5 at 100 ml/hr d/t hypernatremia - sodium of 151 Monitor renal function. Monitor electrolytes. Supplement as necessary. Neurology recommendations appreciated. updated at bedside. ABG reviewed, notable for acidemia. CXR reviewed, reveals bibasilar atelectasis or pneumonia Labs and imaging reviewed. Rest of plan as noted below. Plan: s/p intubation on mechanical ventilator. On AC mode; RR 20, VT 500, PEEP 5, FiO2 45% Titrate FIO2 to keep O2 saturation above 90%. VAP bundle. Daily ABG and CXR while intubated Off sedation Pressors as necessary for hemodynamic support Titrate to keep mean arterial pressure greater than 65 mmHg. Sedation holiday daily Continue antibiotics Follow up cultures Head of bed elevation Aspiration precautions Smoking cessation education given. Counseled against drug abuse. Monitor renal function. Monitor electrolytes. Supplement as necessary. Monitor ins and outs. DVT prophylaxis. Prognosis: Poor given patient's multiple co-morbidities. Condition: Critical Rest of plan per hospitalist and other consultants. A total of 35 minutes of critical care time was spent reviewing the patient record, examining the patient, making a diagnostic and therapeutic plan, discussing this plan with the medical personnel, following up on diagnostic studies and following the patient for clinical stability excluding any and all procedures. At least 50% of this time was spent in direct, [id number] contact. Thank you, COLOR DIPPER Roberta, for allowing me to participate in this patient's care. Further recommendations will depend on the patient's clinical course. Please do not hesitate to contact me if you have any questions or concerns. This medical document was created using an electronic medical record system with [employer] dictation system. Although these documentations are being carefully reviewed, there may still be some phonetic and typographical changes. The errors are purely typographical, due to imperfection on the software program, and do not reflect any compromise in the patient's medical care. Dietary Evaluation Review Comments: 1. Per RN, pt is able to drink liquid but unable to manage jello. Will Downgrade his CCHO-60 diet to pureed texture. 2. offer Glucern BID if PO is still poor 3. elevated BUN, f/u and reassess after pt has a GI and nephrology consult. 4. consider clinimix as a form of protein supplementation as pt has very low albumin. Expected Outcomes/Goals: Gradual wt loss, better DM control. Plan discussed with: Other (MARCOS [place]) Critical Care Time(min): 35 JITENDRA WATERS MD May 21, 2024 19:26
[2024-05-22] VITALS (105 sets, daily range): BP systolic 77–121; BP diastolic 40–71; PULSE 103–117; RESP 12–30; TEMP 95.9–98.8; O2SAT 89–98
[2024-05-22 03:52] LABS: Basophils # (auto) 0 10 ^3/uL (0-0.2); Basophils % (auto) 0.2 % (0.0-2.0); Eosinophils # (auto) 0.1 10 ^3/uL (0-0.8); Lymphocytes # (auto) 0.3 10 ^3/uL (0.4-5.4); Monocytes # (auto) 0.4 10 ^3/uL (0-1.3); White Blood Cell 9.3 10^3/uL (4.4-10.8)
[2024-05-22 03:55] LABS: Eosinophils % (auto) 0.6 % (0.0-7.0); Hematocrit 25.3 % (41.0-53.0); Hemoglobin 8.3 g/dL (13.5-17.5); Lymphocytes % (auto) 3.1 % (10.0-50.0); Mean Corpuscular Hemoglobin 30.2 pg (28.0-32.0); Mean Corpuscular Hgb Conc. 32.6 g/dL (32.0-36.0); Mean Corpuscular Volume 92.5 fL (80.0-100.0); Monocytes % (auto) 3.9 % (0.0-12.0); Neutrophils # (auto) 8.6 10 ^3/uL (1.6-8.6); Neutrophils % (auto) 92.2 % (37.0-80.0); Nucleated Red Blood Cells % 0.9 %; Platelet Count (auto) 73 10^3/uL (140-450); Red Blood Cells 2.73 10^6/uL (4.5-5.90); Red Cell Distribution Width 24.9 % (11.8-14.3)
[2024-05-22 04:11] LABS: Anion Gap 11 (5-15); Calcium 9.1 mg/dL (8.7-10.4); Carbon Dioxide 27 mmol/L (20-31); Magnesium 2.6 mg/dL (1.6-2.6)
[2024-05-22 04:22] LABS: BUN/Creatinine Ratio 42.1 (10.0-20.0)
[2024-05-22 04:34] LABS: Alanine Aminotransferase 61 U/L (7-40); Albumin 2.4 g/dL (3.2-4.8); Alkaline Phosphatase 256 U/L (46-116); Aspartate Aminotransferase 105 U/L (13-40); Bilirubin, Total 16.7 mg/dL (0.2-1.0); Blood Urea Nitrogen 99 mg/dL (9-23); Chloride 112 mmol/L (98-107); Glucose 138 mg/dL (74-106); Sodium 150 mmol/L (136-145); Total Protein 5.4 g/dL (5.7-8.2)
[2024-05-22 04:44] LABS: Anisocytosis Moderate; Hypochromia Slight; Ovalocytes FEW; Platelet Estimate Decreased; Tear Drop Cells FEW
--- NOTE | 2024-05-22 05:48 | DVH ---
CHEST RADIOGRAPH Indication: INTUBATED Technique: Single frontal view of the chest was obtained Comparison: XY CHEST PORTABLE on DOS: 05/21/24, XY CHEST PORTABLE on DOS: 05/20/24, XY CHEST PORTABLE on DOS: 05/19/24 IMPRESSION: Heart is prominent in size. Bilateral patchy airspace opacities appear slightly increased. No sizable effusion or pneumothorax. Endotracheal tube tip approximately 2 cm from the jim. Bilateral venou s catheter tips in the region of the superior vena cava. Enteric tube tip below level of the examinat ion. No pneumothorax.
[2024-05-22] MEDS ORDERED: POTASSIUM CHL 20MEQ/100ML 100 ML IV ONE (06:30)
--- NOTE | 2024-05-22 06:39 | DVHPN2 ---
Subjective Patient unresponsive Reviewed: Care Plan, H&P, Labs, Medications, Previous Orders, Radiology, Other (Consultations) Changes from previous H/P or p: No Changes General: Per HPI Objective Vitals Vital Signs Date Time Temp Pulse Resp B/P (MAP) Pulse Ox O2 Delivery O2 Flow Rate FiO2 05/22/24 06:16 106 23 110/61 (77) 93 30 05/22/24 04:00 Mechanical Ventilator+ 05/22/24 04:00 97.9 97.9 Intake/Output Intake and Output 05/22/24 07:00 Intake Total 3829.447 ml Output Total 2100 ml Balance 1729.447 ml Intake Oral 900 ml IV Total 2929.447 ml Output Urine Total 2100 ml General Appearance: moderate distress, Other (Encephalopathic) HEENT: Atraumatic, Other (NG tube in place) Lungs: Other (Decreased air entry bilateral with decreased respiratory rate) Cardiovascular: Normal S1, Normal S2, No murmurs, Other (Tachycardia) Abdomen: Normal bowel sounds, Soft, Other (Ventral hernia; reducible; no ascites palpated) Genitourinary: Other (Junior's) Extremities: Normal pulses, Other (Stasis changes of the skin of lower extremities with nonpitting edema) Neuro: Other (Lethargic; opening eyes to painful stimuli) Skin: Dry, Intact Psych/Mental Status: Other (Lethargic) Medications Current Medications Medications Dose Ordered Sig/Kenisha Route Start Time Stop Time Status Last Admin Dose Admin Sodium Chloride 10 ml Q8HR IV 05/07/24 06:00 05/22/24 05:49 10 ML Ondansetron HCl 4 mg Q4HP PRN IV 05/06/24 22:15 Docusate Sodium 100 mg BIDPRN PRN PO 05/06/24 22:15 Pantoprazole Sodium 40 mg BID IV 05/08/24 22:00 05/21/24 22:11 40 MG Thiamine HCl 100 mg DAILY IV 05/10/24 10:00 05/21/24 09:56 100 MG Flecainide Acetate 100 mg Q12HR PO 05/09/24 22:00 05/21/24 22:12 100 MG Folic Acid 1 mg DAILY PO 05/11/24 10:00 05/21/24 09:55 1 MG Diagnostic Test (Pha) 1 strip Q6HR 05/10/24 18:00 05/22/24 05:53 1 STRIP Insulin Human Regular FOLLOW SLIDING SCALE Q6HR SC 05/10/24 18:00 05/22/24 05:54 2 UNITS Dextrose 50 ml UD IV 05/10/24 17:15 Enteral Nutritional Formula 1,000 ml 30ML/HR GT 05/12/24 12:45 05/15/24 20:42 1,000 ML Sodium Chloride 10 ml QSHIFT@10,22 IV 05/13/24 22:00 05/21/24 09:55 10 ML Fentanyl Citrate 250 ml @ 2.5 mls/hr Q24H IV 05/14/24 04:45 05/17/24 15:14 22.5 MLS/HR Albuterol 2.5 mg Q4HR NEB 05/15/24 14:00 05/22/24 06:15 2.5 MG Ipratropium [place] 0.5 mg Q4HR NEB 05/15/24 14:00 05/22/24 06:15 0.5 MG Lactulose 30 ml Q4HR NG 05/16/24 07:00 05/21/24 17:39 30 ML Phenylephrine HCl 80 mg/Sodium Chloride 250 ml @ 7.5 mls/hr Q24H IV 05/16/24 11:15 Norepinephrine Bitartrate 32 mg/ Sodium Chloride 250 ml @ 0.938 mls/ hr Q24H IV 05/16/24 11:15 05/20/24 19:44 5.625 MLS/HR Metoclopramide HCl 5 mg Q8HR IV 05/16/24 22:00 05/22/24 05:53 5 MG Meropenem 50 ml @ 17 mls/hr Q12HR IV 05/18/24 10:00 05/21/24 22:11 17 MLS/HR Ursodiol 300 mg BID PO 05/17/24 10:00 05/21/24 22:11 300 MG Dexmedetomidine HCl 400 mcg/ Dextrose 100 ml @ 5.96 mls/hr [id number] IV 05/18/24 10:15 Purified Water 400 ml Q6HR GT 05/18/24 18:00 05/22/24 05:49 400 ML Amino Acids 0 ml @ 0 mls/hr PER PHARMACY IV 05/20/24 09:00 Amino Acids/ Electrolytes/ Dextrose 1,000 ml @ 41 mls/hr DAILY@2200 IV 05/20/24 22:00 05/21/24 22:10 41 MLS/HR Dextrose 1,000 ml @ 100 mls/hr Q10H IV 05/21/24 09:45 05/21/24 22:10 100 MLS/HR Furosemide 40 mg DAILY IV 05/22/24 10:00 Laboratory Results Laboratory Tests 05/22/24 03:23 Chemistry Test 05/22/24 03:23 Albumin 2.4 g/dL (3.2-4.8) L Calcium Level 9.1 mg/dL (8.7-10.4) Magnesium Level 2.6 mg/dL (1.6-2.6) Phosphorus Level 4.0 mg/dL (2.4-5.1) Total Protein 5.4 g/dL (5.7-8.2) L LFT Test 05/22/24 03:23 Alanine Aminotransferase (ALT) 61 U/L (7-40) H Alkaline Phosphatase 256 U/L (46-116) H Aspartate Amino Transferase (AST) 105 U/L (13-40) H Total Bilirubin 16.7 mg/dL (0.2-1.0) H Urinalysis Test 05/07/24 01:30 Urine Color Dark-yellow (Yellow) Urine Clarity Turbid (Clear) H Urine pH 5.5 (5.0-9.0) Urine Specific [place] 1.015 (1.001-1.035) Urine Protein 2+ (Negative) H Urine Ketones Negative (Negative) Urine Blood 2+ /uL (Negative) H Urine Nitrite Negative (Negative) Urine Bilirubin 1+ (Negative) Urine Urobilinogen 2 mg/dL (Negative) H Urine Leukocyte Esterase 3+ /uL (Negative) Urine RBC 8 /hpf (0 - 3) Urine Microscopic WBC 193 /HPF (0-3) H Urine Squamous Epithelial Cells Few /hpf (<5) Urine Bacteria Mod /hpf (None Seen) H Urine Hyaline Casts Few /lpf (0 - 2) Urine Mucus Few (None Seen) Urine Glucose Normal mg/dL (Normal) Blood Gas Results Test 05/21/24 10:08 Arterial Blood pH 7.344 (7.350-7.450) FiO2 % 45.0 Microbiology Microbiology Date/Time Source Procedure Growth Status 05/15/24 09:22 Blood Blood Culture - Final NO GROWTH AFTER 5 DAYS OF INCUBATION. Complete 05/13/24 14:00 Nose MRSA Screen - Final Complete 05/13/24 13:55 Sputum Gram Stain - Final Complete 05/13/24 13:55 Sputum Respiratory Culture - Final Complete 05/07/24 01:30 Voided Urine Urine Culture - Final Klebsiella pneumoniae - ESBL Complete Labs and/or images reviewed: Labs reviewed by me, Image(s) reviewed by me Assessment/Plan Assessment/Plan Impression: -acute hypoxic respiratory failure with mechanical ventilation -metabolic encephalopathy, probable toxic etiology -probable aspiration pneumonia -acute kidney injury, vasomotor nephropathy. Severe azotemia -? GI bleed -hyponatremia -cirrhosis of the liver -sepsis -he was beyond the urine -obesity -anemia of chronic disease -thrombocytopenia Plan: -events: Patient with persistent hypernatremia, altered mental status. Ammonia level improving. -continue current ventilator settings -nephrology consultation: Recommendations reviewed -continue diuresis -continue antibiotic therapy with meropenem -decrease lactulose frequency -potassium replacement -PUD, DVT prophylaxis -repeat labs and chest x-ray in a.m. Critical care time spent with patient discussing and formulating plan of care: 40 minutes. This does not include time spent performing procedures. This medical document was created using an electronic medical record system with [employer] dictation system. Although this document has been carefully reviewed, there may still be some phonetic and typographical errors. These areas are purely typographical due to imperfections of the software programs, and do not reflect any compromise in the patient's medical care. Plan discussed with: Patient, Other (RN) My Orders Orders - BAL GARCIA NP Procedure Category Date Status Time Furosemide Injection PHA 05/22/24 In Process (Lasix Injection) 10:00 Free Water PHA 05/22/24 Verified 12:00 Lactulose Oral PHA 05/22/24 Verified 12:00 Nutritional PHA 05/22/24 Verified Supplements (Nepro 06:30 Potassium Chl Maninder PHA 05/22/24 Verified KCL 06:30 Date of Service: May 22, 2024 Billing Provider: BAL GARCIA NP Common Visit Codes: [id number] CARE 30-74 MIN BAL GARCIA NP May 22, 2024 06:39
[2024-05-22] MEDS: POTASSIUM CHL 20MEQ/100ML 100 ML IV ONE (07:04)
[2024-05-22] MEDS: POTASSIUM CHL 20MEQ/50ML 50 ML IV ONE ×2 (07:11→08:29)
[2024-05-22] MEDS: FUROSEMIDE 40 MG/4 ML VIAL IV SCH (08:31)
[2024-05-22] MEDS: FREE WATER GT SCH (12:00)
[2024-05-22] MEDS: LACTULOSE 20Gm/30ML SOLN NG SCH (13:04)
[2024-05-22] MEDS: Nepro With Carb Steady 1 Liter Bottle GT SCH (14:59)
--- NOTE | 2024-05-22 15:32 | DVHPN2 ---
Progress Note Date Seen: May 22, 2024 Medical Necessity Reason Pt with a Central, PICC or Fol: Yes The following are medically ne: PICC Line, Mcduffie Catheter Reason for mcduffie catheter: Strict I&O Subjective Patient reports: Other (Patient intubated) Review of Systems: Deferred Objective vital signs Vital Sign Date Time Temp Pulse Resp B/P (MAP) Pulse Ox O2 Delivery O2 Flow Rate FiO2 05/22/24 15:15 115 17 121/64 (83) 96 05/22/24 14:32 30 05/22/24 14:00 97.1 97.1 05/22/24 14:00 Mechanical Ventilator+ Total Intake and Output 05/21/24 05/21/24 05/22/24 15:00 23:00 07:00 Intake Total 1015.504 ml 2065.316 ml 1754.379 ml Output Total 2100 ml 1150 ml Balance 1015.504 ml -34.684 ml 604.379 ml medications Current Medications Medications Dose Ordered Sig/Kenisha Route Start Time Stop Time Status Last Admin Dose Admin Sodium Chloride 10 ml Q8HR IV 05/07/24 06:00 05/22/24 13:20 10 ML Ondansetron HCl 4 mg Q4HP PRN IV 05/06/24 22:15 Docusate Sodium 100 mg BIDPRN PRN PO 05/06/24 22:15 Pantoprazole Sodium 40 mg BID IV 05/08/24 22:00 05/22/24 08:31 40 MG Thiamine HCl 100 mg DAILY IV 05/10/24 10:00 05/22/24 08:32 100 MG Flecainide Acetate 100 mg Q12HR PO 05/09/24 22:00 05/22/24 08:31 100 MG Folic Acid 1 mg DAILY PO 05/11/24 10:00 05/22/24 08:30 1 MG Diagnostic Test (Pha) 1 strip Q6HR 05/10/24 18:00 05/22/24 12:00 1 STRIP Insulin Human Regular FOLLOW SLIDING SCALE Q6HR SC 05/10/24 18:00 05/22/24 13:12 2 UNITS Dextrose 50 ml UD IV 05/10/24 17:15 Sodium Chloride 10 ml QSHIFT@10,22 IV 05/13/24 22:00 05/22/24 13:04 10 ML Fentanyl Citrate 250 ml @ 2.5 mls/hr Q24H IV 05/14/24 04:45 05/17/24 15:14 22.5 MLS/HR Albuterol 2.5 mg Q4HR NEB 05/15/24 14:00 05/22/24 14:31 2.5 MG Ipratropium [place] 0.5 mg Q4HR NEB 05/15/24 14:00 05/22/24 14:31 0.5 MG Phenylephrine HCl 80 mg/Sodium Chloride 250 ml @ 7.5 mls/hr Q24H IV 05/16/24 11:15 Norepinephrine Bitartrate 32 mg/ Sodium Chloride 250 ml @ 0.938 mls/ hr Q24H IV 05/16/24 11:15 05/20/24 19:44 5.625 MLS/HR Metoclopramide HCl 5 mg Q8HR IV 05/16/24 22:00 05/22/24 13:05 5 MG Meropenem 50 ml @ 17 mls/hr Q12HR IV 05/18/24 10:00 05/22/24 08:32 17 MLS/HR Ursodiol 300 mg BID PO 05/17/24 10:00 05/22/24 08:30 300 MG Dexmedetomidine HCl 400 mcg/ Dextrose 100 ml @ 5.96 mls/hr [id number] IV 05/18/24 10:15 Dextrose 1,000 ml @ 100 mls/hr Q10H IV 05/21/24 09:45 05/22/24 14:58 100 MLS/HR Furosemide 40 mg DAILY IV 05/22/24 10:00 05/22/24 08:31 40 MG Purified Water 300 ml Q6HR GT 05/22/24 12:00 05/22/24 12:00 300 ML Lactulose 30 ml Q6HR NG 05/22/24 12:00 05/22/24 13:04 30 ML Enteral Nutritional Formula 1,000 ml 30ML/HR GT 05/22/24 06:30 05/22/24 14:59 1,000 ML Examination: GENERAL:Abnormal, LUNGS:Abnormal, MSK:Abnormal, NEURO:Abnormal laboratory and microbiology Laboratory Tests 05/22/24 03:23 Test 05/22/24 03:23 Range/Units Serum Glucose 138 H 74-106 mg/dL Microbiology Date/Time Source Procedure Growth Status 05/15/24 09:22 Blood Blood Culture - Final NO GROWTH AFTER 5 DAYS OF INCUBATION. Complete 05/13/24 14:00 Nose MRSA Screen - Final Complete 05/13/24 13:55 Sputum Gram Stain - Final Complete 05/13/24 13:55 Sputum Respiratory Culture - Final Complete 05/07/24 01:30 Voided Urine Urine Culture - Final Klebsiella pneumoniae - ESBL Complete Problem List/Assessment/Plan Problem List/Assessment/Plan Acute kidney injury hemodynamically mediated in the setting of hypotension and shock +contrast Acute respiratory failure in the setting of aspiration pneumonia shock septic Hypernatremia Hepatic encephalopathy Decompensated liver cirrhosis \ Acute methamphetamine intoxication heavy alcoholism Hepatitis-C Multidrug resistant ESBL urinary tract infection Aspiration pneumonia recs BUN high likely secondary to TPN, diuretics D5W IV as ordered on levophed lasix iv bid D5W, free water for Na correction Discussed with bedside Plan discussed with: Other Dietary Evaluation Review Comments: 1. Per RN, pt is able to drink liquid but unable to manage jello. Will Downgrade his CCHO-60 diet to pureed texture. 2. offer Glucern BID if PO is still poor 3. elevated BUN, f/u and reassess after pt has a GI and nephrology consult. 4. consider clinimix as a form of protein supplementation as pt has very low albumin. Expected Outcomes/Goals: Gradual wt loss, better DM control. YANELY CHEATHAM MD May 22, 2024 15:32
--- NOTE | 2024-05-22 18:54 | DVHPN2 ---
Progress Note - Dictate Date Seen: May 22, 2024 Medical Necessity Reason Pt with a Central, PICC or Fol: Yes The following are medically ne: PICC Line, Mcduffie Catheter Reason for mcduffie catheter: Strict I&O Subjective Patient seen and examined at bedside. Intubated on mechanical ventilator. Overnight events reviewed. vital signs Vital Sign Date Time Temp Pulse Resp B/P (MAP) Pulse Ox O2 Delivery O2 Flow Rate FiO2 05/22/24 18:30 115 20 102/54 (70) 90 05/22/24 18:11 30 05/22/24 18:00 Mechanical Ventilator+ 05/22/24 16:00 97.4 97.4 Total Intake and Output 05/21/24 05/21/24 05/22/24 15:00 23:00 07:00 Intake Total 1015.504 ml 2065.316 ml 1754.379 ml Output Total 2100 ml 1150 ml Balance 1015.504 ml -34.684 ml 604.379 ml medications Current Medications Medications Dose Ordered Sig/Kenisha Route Start Time Stop Time Status Last Admin Dose Admin Sodium Chloride 10 ml Q8HR IV 05/07/24 06:00 05/22/24 13:20 10 ML Ondansetron HCl 4 mg Q4HP PRN IV 05/06/24 22:15 Docusate Sodium 100 mg BIDPRN PRN PO 05/06/24 22:15 Pantoprazole Sodium 40 mg BID IV 05/08/24 22:00 05/22/24 08:31 40 MG Thiamine HCl 100 mg DAILY IV 05/10/24 10:00 05/22/24 08:32 100 MG Flecainide Acetate 100 mg Q12HR PO 05/09/24 22:00 05/22/24 08:31 100 MG Folic Acid 1 mg DAILY PO 05/11/24 10:00 05/22/24 08:30 1 MG Diagnostic Test (Pha) 1 strip Q6HR 05/10/24 18:00 05/22/24 18:08 1 STRIP Insulin Human Regular FOLLOW SLIDING SCALE Q6HR SC 05/10/24 18:00 05/22/24 18:08 2 UNITS Dextrose 50 ml UD IV 05/10/24 17:15 Sodium Chloride 10 ml QSHIFT@10,22 IV 05/13/24 22:00 05/22/24 13:04 10 ML Fentanyl Citrate 250 ml @ 2.5 mls/hr Q24H IV 05/14/24 04:45 05/17/24 15:14 22.5 MLS/HR Albuterol 2.5 mg Q4HR NEB 05/15/24 14:00 05/22/24 18:11 2.5 MG Ipratropium [place] 0.5 mg Q4HR NEB 05/15/24 14:00 05/22/24 18:11 0.5 MG Phenylephrine HCl 80 mg/Sodium Chloride 250 ml @ 7.5 mls/hr Q24H IV 05/16/24 11:15 Norepinephrine Bitartrate 32 mg/ Sodium Chloride 250 ml @ 0.938 mls/ hr Q24H IV 05/16/24 11:15 05/20/24 19:44 5.625 MLS/HR Metoclopramide HCl 5 mg Q8HR IV 05/16/24 22:00 05/22/24 13:05 5 MG Meropenem 50 ml @ 17 mls/hr Q12HR IV 05/18/24 10:00 05/22/24 08:32 17 MLS/HR Ursodiol 300 mg BID PO 05/17/24 10:00 05/22/24 08:30 300 MG Dexmedetomidine HCl 400 mcg/ Dextrose 100 ml @ 5.96 mls/hr [id number] IV 05/18/24 10:15 Dextrose 1,000 ml @ 100 mls/hr Q10H IV 05/21/24 09:45 05/22/24 14:58 100 MLS/HR Furosemide 40 mg DAILY IV 05/22/24 10:00 05/22/24 08:31 40 MG Purified Water 300 ml Q6HR GT 05/22/24 12:00 05/22/24 17:31 300 ML Lactulose 30 ml Q6HR NG 05/22/24 12:00 05/22/24 17:48 30 ML Enteral Nutritional Formula 1,000 ml 30ML/HR GT 05/22/24 06:30 05/22/24 14:59 1,000 ML objective Gen.: Patient lying in bed in medical ICU. Intubated on mechanical ventilator. Head: Normocephalic, atraumatic. Eyes: PERRLA. Ears: Normal external anatomy. Throat: Endotracheal tube and orogastric tube in place. Neck: Supple, trachea midline. Chest: Transmitted breath sounds bilaterally. Decreased air entry bilaterally. No wheezing. Bibasilar crackles. Cardiovascular: Positive S1, positive S2. Regular rate and rhythm. Abdomen: Positive bowel sounds in all 4 quadrants. Soft, nontender, nondistended. : Mcduffie in place. Normal external genitalia. Rectal: Deferred. Skin: Warm, dry. Intact. Extremities: 2+ radial pulses bilaterally. No lower extremity edema. Neuro: Off sedation, unresponsive laboratory and microbiology Laboratory Tests 05/22/24 15:55 05/22/24 03:23 Test 05/22/24 03:23 Range/Units Serum Glucose 138 H 74-106 mg/dL Assessment/Plan Impression: Acute hypoxic respiratory failure Acute hypercarbic respiratory failure On mechanical ventilator Metabolic acidosis Drug abuse/methamphetamine abuse Elevated troponin Hepatic encephalopathy Urinary tract infection Pulmonary edema. Nicotine dependence Obesity BMI 36.4 Events: Remains on vent support On AC mode; RR 20, VT 500, PEEP 5, FiO2 45 -->30% Improved FiO2 requirements Off sedation since 05/18/24, pt continues unresponsive Neurology consultation pending. Pressors for hemodynamic support On Levophed Titrate to keep mean arterial pressure greater than 65 mmHg. Continue bronchodilators Continue antibiotics Clinimix discontinued Resumed tube feedings for nutritional support Continue IV fluids with D5 at 100 ml/hr d/t hypernatremia Monitor renal function. Monitor electrolytes. Supplement as necessary. CXR reviewed, reveals bilateral patchy airspace opacities appear slightly increased. No effusion or pneumothorax. Devices in place. Labs and imaging reviewed. Rest of plan as noted below. Plan: s/p intubation on mechanical ventilator. On AC mode; RR 20, VT 500, PEEP 5, FiO2 30% Titrate FIO2 to keep O2 saturation above 90%. VAP bundle. Daily ABG and CXR while intubated Off sedation Pressors as necessary for hemodynamic support Titrate to keep mean arterial pressure greater than 65 mmHg. Sedation holiday daily Continue antibiotics Follow up cultures Head of bed elevation Aspiration precautions Smoking cessation education given. Counseled against drug abuse. Monitor renal function. Monitor electrolytes. Supplement as necessary. Monitor ins and outs. DVT prophylaxis. Prognosis: Poor given patient's multiple co-morbidities. Condition: Critical Rest of plan per hospitalist and other consultants. A total of 35 minutes of critical care time was spent reviewing the patient record, examining the patient, making a diagnostic and therapeutic plan, discussing this plan with the medical personnel, following up on diagnostic studies and following the patient for clinical stability excluding any and all procedures. At least 50% of this time was spent in direct, [id number] contact. Thank you, [employer] Roberta, for allowing me to participate in this patient's care. Further recommendations will depend on the patient's clinical course. Please do not hesitate to contact me if you have any questions or concerns. This medical document was created using an electronic medical record system with [employer] dictation system. Although these documentations are being carefully reviewed, there may still be some phonetic and typographical changes. The errors are purely typographical, due to imperfection on the software program, and do not reflect any compromise in the patient's medical care. Dietary Evaluation Review Comments: 1. Per RN, pt is able to drink liquid but unable to manage jello. Will Downgrade his CCHO-60 diet to pureed texture. 2. offer Glucern BID if PO is still poor 3. elevated BUN, f/u and reassess after pt has a GI and nephrology consult. 4. consider clinimix as a form of protein supplementation as pt has very low albumin. Expected Outcomes/Goals: Gradual wt loss, better DM control. Plan discussed with: Other (MARCOS [place]) Critical Care Time(min): 35 JITENDRA WATERS MD May 22, 2024 18:54
[2024-05-22] MEDS: POTASSIUM EFFERVESENT TAB 25 MEQ GT ONE (23:46)
[2024-05-23] VITALS (109 sets, daily range): BP systolic 86–131; BP diastolic 33–83; PULSE 108–118; RESP 10–31; TEMP 97–99.9; O2SAT 90–100
[2024-05-23 04:03] LABS: Basophils # (auto) 0 10 ^3/uL (0-0.2); Basophils % (auto) 0.1 % (0.0-2.0); Eosinophils # (auto) 0.3 10 ^3/uL (0-0.8); Eosinophils % (auto) 1.1 % (0.0-7.0); Hematocrit 28.9 % (41.0-53.0); Hemoglobin 9.3 g/dL (13.5-17.5); Lymphocytes # (auto) 0.6 10 ^3/uL (0.4-5.4); Lymphocytes % (auto) 2.6 % (10.0-50.0); Mean Corpuscular Hgb Conc. 32.3 g/dL (32.0-36.0); Mean Corpuscular Volume 92.9 fL (80.0-100.0); Monocytes # (auto) 1.2 10 ^3/uL (0-1.3); Monocytes % (auto) 5.2 % (0.0-12.0); Neutrophils # (auto) 21.9 10 ^3/uL (1.6-8.6); Nucleated Red Blood Cells % 0.7 %; Platelet Count (auto) 113 10^3/uL (140-450); Red Blood Cells 3.11 10^6/uL (4.5-5.90); White Blood Cell 24.1 10^3/uL (4.4-10.8)
[2024-05-23 04:07] LABS: Anion Gap 11 (5-15); Calcium 9.2 mg/dL (8.7-10.4); Carbon Dioxide 25 mmol/L (20-31); Magnesium 2.5 mg/dL (1.6-2.6); Potassium 4.1 mmol/L (3.5-5.1); Sodium 145 mmol/L (136-145)
[2024-05-23 04:26] LABS: BUN/Creatinine Ratio 39.3 (10.0-20.0)
[2024-05-23 04:29] LABS: Alanine Aminotransferase 72 U/L (7-40); Albumin 2.5 g/dL (3.2-4.8); Alkaline Phosphatase 310 U/L (46-116); Aspartate Aminotransferase 125 U/L (13-40); Bilirubin, Total 19.2 mg/dL (0.2-1.0); Chloride 109 mmol/L (98-107); Glucose 182 mg/dL (74-106); Total Protein 5.8 g/dL (5.7-8.2)
[2024-05-23 04:31] LABS: Blood Urea Nitrogen 88 mg/dL (9-23)
[2024-05-23 04:32] LABS: Red Cell Distribution Width 24.5 % (11.8-14.3)
--- NOTE | 2024-05-23 05:11 | DVH ---
EXAM: XR Chest, 1 View CLINICAL INDICATION: resp failure TECHNIQUE: Frontal view of the chest. COMPARISON: XY CHEST PORTABLE on DOS: 05/22/24, XY CHEST PORTABLE on DOS: 05/21/24, XY CHEST PORTABLE o n DOS: 05/20/24, XY CHEST PORTABLE on DOS: 05/19/24, XY CHEST PORTABLE on DOS: 05/18/24 FINDINGS: LUNGS AND PLEURAL SPACES: Left basilar atelectasis or pneumonia. No pneumothorax. HEART: Unremarkable. No cardiomegaly. MEDIASTINUM: Unremarkable. Normal mediastinal contour. BONES/JOINTS: Unremarkable. No acute fracture. TUBES, LINES AND DEVICES: Right internal jugular central venous catheter tip in the superior vena c otf. The endotracheal tube (ETT) is in satisfactory position. OTHER FINDINGS: . . IMPRESSION: Left basilar atelectasis or pneumonia.
[2024-05-23 05:54] LABS: Anisocytosis Moderate; Platelet Estimate Decreased
[2024-05-23 05:56] LABS: Large Platelets FEW
[2024-05-23 07:19] LABS: Base Excess -1.1 mmol/L (-2.0-3.0)
[2024-05-23 10:12] LABS: Basophils # (auto) 0 10 ^3/uL (0-0.2); Basophils % (auto) 0.1 % (0.0-2.0); Eosinophils # (auto) 0.2 10 ^3/uL (0-0.8); Eosinophils % (auto) 0.9 % (0.0-7.0); Hematocrit 29.4 % (41.0-53.0); Hemoglobin 9.3 g/dL (13.5-17.5); Lymphocytes # (auto) 0.7 10 ^3/uL (0.4-5.4); Lymphocytes % (auto) 2.9 % (10.0-50.0); Mean Corpuscular Hemoglobin 29.6 pg (28.0-32.0); Mean Corpuscular Hgb Conc. 31.6 g/dL (32.0-36.0); Mean Corpuscular Volume 93.7 fL (80.0-100.0); Monocytes # (auto) 1.1 10 ^3/uL (0-1.3); Monocytes % (auto) 4.8 % (0.0-12.0); Neutrophils # (auto) 21.6 10 ^3/uL (1.6-8.6); Neutrophils % (auto) 91.3 % (37.0-80.0); Nucleated Red Blood Cells % 0.6 %; Platelet Count (auto) 114 10^3/uL (140-450); Red Blood Cells 3.13 10^6/uL (4.5-5.90); White Blood Cell 23.7 10^3/uL (4.4-10.8)
[2024-05-23 10:21] LABS: Red Cell Distribution Width 24.7 % (11.8-14.3)
[2024-05-23 10:22] LABS: Magnesium 2.6 mg/dL (1.6-2.6)
[2024-05-23 10:24] LABS: Phosphorus 4.4 mg/dL (2.4-5.1)
--- NOTE | 2024-05-23 11:01 | DVHPNRES ---
Progress Note Date Seen: May 23, 2024 Resident Creating Document: TIERRA GALEAS RESIDENT Medical Necessity Reason Pt with a Central, PICC or Fol: Yes The following are medically ne: PICC Line, Mcduffie Catheter Reason for mcduffie catheter: Strict I&O Subjective Review of Systems HPI Patient is a 63-year-old male with a past medical history of liver cirrhosis likely secondary to hep C, liver shunt, CHF, diabetes mellitus, prostate cancer, history of lower GI bleed status post blood transfusion was brought to the ER with a chief complaint of drug overdose. Information gathered from reviewing the chart and talking with the patient's family, as per he was found gargling and unresponsive in a car, possible overdose of morphine following which EMS were called. EMS gave the patient Narcan and he woke up but was unable to recall what happened. Urine drug screen in the ER was positive for amphetamine and opiates. Was obtunded and was on oxygen support. While in the ER patient went into atrial fibrillation rapid ventricular response following which she was given diltiazem. Patient while in the hospital had altered mental status, sepsis likely due to UTI with the underlying liver cirrhosis had to be put on mechanical ventilation and put on vasopressor support. Patient was transferred to the ICU for further care. In ICU patient was treated with meropenem for Klebsiella pneumoniae ESBL multidrug resistant and also coverage for suspected aspiration pneumonia in the right lower lung, diuresis for with the Lasix, rifaximin and lactulose for hepatic encephalopathy, Patient's blood cultures were done twice and did not show any growth after 5 days, respiratory sputum cultures did not show any growth. Patient's mental status remained obtunded even after turning of the sedation, had vasopressor requirements therefore he could not be extubated. Past medical history: Liver cirrhosis likely secondary to hep C, liver shunt, CHF, type 2 diabetes mellitus, prostate cancer status post radiotherapy, history of lower GI bleed s/p blood transfusions Past surgical history: Hernia repair, tips, live knee surgery Social history: Patient lives with the , history of smoking less than 1 pack per day, reported alcohol and illicit drug usage Home medications: Lasix 20 mg b.i.d., gabapentin 300 mg q.8 hours, insulin glargine 15 units SC b.i.d., spironolactone 50 mg daily Review of systems 05/23/2024 Patient seen and examined at the bedside. - On assessment of mental status, patient was weaned off sedation on 05/18 and has been off since then but his mental status remains obtunded with responsiveness to verbal commands intermittently. While on the ventilator he has episodes of agitation with ventilatory dyssynchrony. As the patient is currently on vasopressor support with norepinephrine at 16 microgram/minute, obtunded mental status with no sedation, he was not a candidate for a spontaneous breathing trial. Patient was started on fentanyl drip. Patient's blood pressure remained in the range of SBP 99-125/ DBP 51-71, norepinephrine was weaned off from 20-16 mcg/min maintaining a MAP> 65. Patient was in sinus tachycardia with a heart rate ranging 100-115/min. - Overnight patient had mild fever with temperature 99.9 F, WBC count increased from 9300 to 34974 91% neutrophils[place] [address]. We repeated the blood cultures, respiratory sputum cultures, urine culture and started the patient on ceftazidime-avibactam 2.5 mg q.8 hours IV - over the last 24 hours patient had a positive fluid balance of 1612 mL, patient is on Lasix 40 mg IV daily. Patient had a total bowel movement of 1200 mL in the flexiseal over the last 24 hours, no blood seen. After discussion with the district home economics agent, lactulose was decreased from q.6 hours to q.12h. Objective vital signs Vital Sign Date Time Temp Pulse Resp B/P (MAP) Pulse Ox O2 Delivery O2 Flow Rate FiO2 05/23/24 09:30 129/65 05/23/24 09:26 114 21 96 30 05/23/24 06:00 Mechanical Ventilator+ 05/23/24 04:00 98.8 98.8 Total Intake and Output 05/22/24 05/22/24 05/23/24 15:00 23:00 07:00 Intake Total 882.815 ml 1649.440 ml 1688.000 ml Output Total 1600 ml 1100 ml Balance 882.815 ml 49.440 ml 588.000 ml medications Current Medications Medications Dose Ordered Sig/Kenisha Route Start Time Stop Time Status Last Admin Dose Admin Sodium Chloride 10 ml Q8HR IV 05/07/24 06:00 05/23/24 06:00 10 ML Ondansetron HCl 4 mg Q4HP PRN IV 05/06/24 22:15 Docusate Sodium 100 mg BIDPRN PRN PO 05/06/24 22:15 Pantoprazole Sodium 40 mg BID IV 05/08/24 22:00 05/23/24 09:30 40 MG Thiamine HCl 100 mg DAILY IV 05/10/24 10:00 05/23/24 09:31 100 MG Flecainide Acetate 100 mg Q12HR PO 05/09/24 22:00 05/23/24 09:32 100 MG Folic Acid 1 mg DAILY PO 05/11/24 10:00 05/23/24 09:32 1 MG Diagnostic Test (Pha) 1 strip Q6HR 05/10/24 18:00 05/23/24 06:00 1 STRIP Insulin Human Regular FOLLOW SLIDING SCALE Q6HR SC 05/10/24 18:00 05/23/24 06:33 4 UNITS Dextrose 50 ml UD IV 05/10/24 17:15 Sodium Chloride 10 ml QSHIFT@10,22 IV 05/13/24 22:00 05/23/24 09:32 10 ML Fentanyl Citrate 250 ml @ 2.5 mls/hr Q24H IV 05/14/24 04:45 05/17/24 15:14 22.5 MLS/HR Albuterol 2.5 mg Q4HR NEB 05/15/24 14:00 05/23/24 09:26 2.5 MG Ipratropium [place] 0.5 mg Q4HR NEB 05/15/24 14:00 05/23/24 09:26 0.5 MG Phenylephrine HCl 80 mg/Sodium Chloride 250 ml @ 7.5 mls/hr Q24H IV 05/16/24 11:15 Norepinephrine Bitartrate 32 mg/ Sodium Chloride 250 ml @ 0.938 mls/ hr Q24H IV 05/16/24 11:15 05/23/24 01:44 9.375 MLS/HR Metoclopramide HCl 5 mg Q8HR IV 05/16/24 22:00 05/23/24 06:34 5 MG Meropenem 50 ml @ 17 mls/hr Q12HR IV 05/18/24 10:00 05/23/24 09:33 17 MLS/HR Ursodiol 300 mg BID PO 05/17/24 10:00 05/23/24 09:32 300 MG Dexmedetomidine HCl 400 mcg/ Dextrose 100 ml @ 5.96 mls/hr [id number] IV 05/18/24 10:15 Dextrose 1,000 ml @ 100 mls/hr Q10H IV 05/21/24 09:45 05/22/24 23:31 100 MLS/HR Furosemide 40 mg DAILY IV 05/22/24 10:00 05/23/24 09:30 40 MG Purified Water 300 ml Q6HR GT 05/22/24 12:00 05/23/24 06:00 300 ML Lactulose 30 ml Q6HR NG 05/22/24 12:00 05/23/24 06:34 30 ML Enteral Nutritional Formula 1,000 ml 30ML/HR GT 05/22/24 06:30 05/22/24 14:59 1,000 ML Examination Patient was obtunded and delirious, RASS -2 Gen - conjunctival pallor present , scleral icterus present, no cyanosis, no clubbing, no LAD, bilateral 2+ pitting pedal edema Skin - Patients skin is warm and dry, multiple spider angiomata skin on the chest, erythematous rash seen in the groin on both the sides HEENT - normocephalic, atraumatic, moist mucous membranes. Neck - no LAD, no JV distention Pulmonary - decreased breath sounds in the right lower lung with inspiratory crackles, no wheezing, no stridor. cardiovascular - variable S1,S2 heard, no added sounds, no murmurs heard. capillary refill normal <2 secs. GI - soft abdomen. no hepatospleenomegaly. Bowel Sounds normoactive Neurological - patient was intubated with a RASS -2 on fentanyl, plantar reflex downgoing, gag reflex present, pupils equal and reactive laboratory and microbiology Laboratory Tests 05/23/24 09:18 05/23/24 03:14 Test 05/23/24 03:14 Range/Units Serum Glucose 182 H 74-106 mg/dL Microbiology Date/Time Source Procedure Growth Status 05/15/24 09:22 Blood Blood Culture - Final NO GROWTH AFTER 5 DAYS OF INCUBATION. Complete 05/13/24 14:00 Nose MRSA Screen - Final Complete 05/13/24 13:55 Sputum Gram Stain - Final Complete 05/13/24 13:55 Sputum Respiratory Culture - Final Complete 05/07/24 01:30 Voided Urine Urine Culture - Final Klebsiella pneumoniae - ESBL Complete Problem List/Assessment/Plan Problem List/Assessment/Plan Neurological # Acute metabolic encephalopathy likely hepatic encephalopathy/toxic drug- induced - head CT 05/07/24 showed no acute intracranial hemorrhage, midline shift or mass effect - urine drug screen at admission positive for opiates and amphetamines - at admission ammonia 84, trended down to <10 on 05/22 - RASS -2, on fentanyl drip Respiratory # Acute hypoxemic/hypercarbic respiratory failure # suspected aspiration pneumonia likely due to Gram+/-bacteria # pulmonary edema with right-sided pleural effusion - on mechanical ventilation with a FiO2 30%, PEEP 5, respiratory rate 20, tidal volume 500ml, PO2/FiO2 ratio- 256 - ABG reviewed today was normal, pH 7.38 with a pCO2 41.3 and HC03 23.9 - chest x-ray shows bilateral pulmonary edema with blunting of the right CP angle - was off sedation since 05/19. patient had ventilator dyssynchrony and episodes of agitation following which Fentanyl drip was started. - antibiotics changed from meropenem to ceftazidime-avibactam 2.5 mg q.8 hours - albuterol and ipratropium med nebs q.4 hours - patient has vasopressor requirement and delirious and is currently not eligible for a spontaneous breathing trial Cardiovascular # Septic shock likely d/t UTI vs pneumonia vs ?SBP with the underlying d ecompensated liver cirrhosis # new onset atrial fibrillation with RVR # NSTEMI type 2 likely due to demand supply mismatch - Echo shows LVEF 60% with concentric LVH, right atrial enlargement, right ventricular enlargement - on vasopressor support with norepinephrine, we will try to wean off norepinephrine, maintaining MAP > 65mmhg - flecainide 100 mg b.i.d. for AFib - [id number] Vasc- 1, has-bled 2 , currently anticoagulation is held, with the patient SOB positive and history of GI bleeding Gastrointestinal # decompensated liver cirrhosis # history of hepatitis-C infection # Suspected SBP # hepatic encephalopathy - stool occult blood positive 05/09 - noted increase in bilirubin, AST ALT and ALP since yesterday - low albumin, elevated PT INR, thrombocytopenia with a platelets at 114, ammonia<10 - over 24 hours, flexi Seal output at 1200 mL, frequency of lactulose decreased from 30 mL q.6 hours to q.12h - currently on tube feeding at 30 mL/hour with gastric residual volume in the morning at 40 mLs, decreased frequency of metoclopramide to q.12 hours - Protonix 40 mg IV b.i.d. - Ursodiol 300 mg b.i.d. - Lasix 40 mg IV daily - 1 dose of albumin 25 mg given today - today we repeated the stool occult blood, stool WBCs Nephrology # acute kidney injury likely hemodynamically mediated due to shock,+ contrast # hypernatremia - BUN 88 and creatinine 2.24, GFR 32- all are improving - urine output over 24 hours at 2700 mL with a positive fluid balance of 1600ml - FENa calculated today at 3% - continuing free water 300 mL via NG tube q.6 hours and norepinephrine - IV D5W discontinued given the patient has fluid overload with 3rd spacing - Lasix 40 mg IV daily - hypernatremia improved Infectious disease # septic shock likely due to UTI versus pneumonia versus ?SBP # candidal infection in the groin - initial urine culture showed growth of multidrug resistant Klebsiella ESBL, on meropenem - initial blood cultures, respiratory sputum cultures negative - today WBC count increased from 9300 to 78512 with 91% neutrophils, repeated the blood, urine, respiratory cultures and stool WBCs. - stopped meropenem and started ceftazidime-avibactam 2.5 mg q.8 hours - nystatin powder q.12h for [facility] # Insulin dependent Diabetes mellitus with hyperglycemia - On ISS - goal blood glucose 140-180 mg/dL Polysubstance Use Acute opiate/methamphetamine intoxication DVT prophylaxis: Sequential compression device PUD prophylaxis: Protonix PICC line in the left forearm- placed on 05/13/2024 Mcduffie's catheter- placed on 05/07/2024 Endotracheal intubation- done on 05/13/2024 Goals of care discussed with the patient's Lorna at bedside for over 25 minutes. prognosis guarded Code status- Full code Critical care time spent: 65 mins Plan discussed with Dr. Ag Plan discussed with: Spouse, Other (RN ( Jacqueline )) My Orders My Orders Orders - TIERRA GALEAS RESIDENT Procedure Category Date Status Time Blood Culture CATHRYN 05/23/24 Logged 10:02 Urine Bacterial CATHRYN 05/23/24 Logged Culture 10:02 Respiratory Culture CATHRYN 05/23/24 Logged W/ Gs 10:02 Lactic Acid W/ Reflex LAB 05/23/24 In Process Order 08:46 Dietary Evaluation Review Comments: 1. Per RN, pt is able to drink liquid but unable to manage jello. Will Downgrade his CCHO-60 diet to pureed texture. 2. offer Glucern BID if PO is still poor 3. elevated BUN, f/u and reassess after pt has a GI and nephrology consult. 4. consider clinimix as a form of protein supplementation as pt has very low albumin. Expected Outcomes/Goals: Gradual wt loss, better DM control. Date of Service: May 23, 2024 Billing Provider: DANELLE AG MD Common Visit Codes: NOT BILLABLE TIERRA GALEAS RESIDENT May 23, 2024 11:01 DANELLE AG MD May 31, 2024 09:47
--- NOTE | 2024-05-23 11:46 | DVHPN2 ---
Progress Note Date Seen: May 23, 2024 Medical Necessity Reason Pt with a Central, PICC or Fol: Yes The following are medically ne: PICC Line, Mcduffie Catheter Reason for mcduffie catheter: Strict I&O Subjective Review of Systems: RESPIRATORY:Abnormal Other Systems: Patient seen and examined by myself today in follow-up, patient remained intubated on ventilator Objective vital signs Vital Sign Date Time Temp Pulse Resp B/P (MAP) Pulse Ox O2 Delivery O2 Flow Rate FiO2 05/23/24 10:50 116 26 117/64 (81) 94 30 05/23/24 10:00 Mechanical Ventilator+ 05/23/24 04:00 98.8 98.8 Total Intake and Output 05/22/24 05/22/24 05/23/24 15:00 23:00 07:00 Intake Total 882.815 ml 1649.440 ml 1688.000 ml Output Total 1600 ml 1100 ml Balance 882.815 ml 49.440 ml 588.000 ml medications Current Medications Medications Dose Ordered Sig/Kenisha Route Start Time Stop Time Status Last Admin Dose Admin Sodium Chloride 10 ml Q8HR IV 05/07/24 06:00 05/23/24 06:00 10 ML Ondansetron HCl 4 mg Q4HP PRN IV 05/06/24 22:15 Docusate Sodium 100 mg BIDPRN PRN PO 05/06/24 22:15 Pantoprazole Sodium 40 mg BID IV 05/08/24 22:00 05/23/24 09:30 40 MG Thiamine HCl 100 mg DAILY IV 05/10/24 10:00 05/23/24 09:31 100 MG Flecainide Acetate 100 mg Q12HR PO 05/09/24 22:00 05/23/24 09:32 100 MG Folic Acid 1 mg DAILY PO 05/11/24 10:00 05/23/24 09:32 1 MG Diagnostic Test (Pha) 1 strip Q6HR 05/10/24 18:00 05/23/24 06:00 1 STRIP Insulin Human Regular FOLLOW SLIDING SCALE Q6HR SC 05/10/24 18:00 05/23/24 06:33 4 UNITS Dextrose 50 ml UD IV 05/10/24 17:15 Sodium Chloride 10 ml QSHIFT@10,22 IV 05/13/24 22:00 05/23/24 09:32 10 ML Fentanyl Citrate 250 ml @ 2.5 mls/hr Q24H IV 05/14/24 04:45 05/17/24 15:14 22.5 MLS/HR Albuterol 2.5 mg Q4HR NEB 05/15/24 14:00 05/23/24 09:26 2.5 MG Ipratropium [place] 0.5 mg Q4HR NEB 05/15/24 14:00 05/23/24 09:26 0.5 MG Phenylephrine HCl 80 mg/Sodium Chloride 250 ml @ 7.5 mls/hr Q24H IV 05/16/24 11:15 Norepinephrine Bitartrate 32 mg/ Sodium Chloride 250 ml @ 0.938 mls/ hr Q24H IV 05/16/24 11:15 05/23/24 01:44 9.375 MLS/HR Metoclopramide HCl 5 mg Q8HR IV 05/16/24 22:00 05/23/24 06:34 5 MG Meropenem 50 ml @ 17 mls/hr Q12HR IV 05/18/24 10:00 05/23/24 09:33 17 MLS/HR Ursodiol 300 mg BID PO 05/17/24 10:00 05/23/24 09:32 300 MG Dexmedetomidine HCl 400 mcg/ Dextrose 100 ml @ 5.96 mls/hr [id number] IV 05/18/24 10:15 Dextrose 1,000 ml @ 100 mls/hr Q10H IV 05/21/24 09:45 05/22/24 23:31 100 MLS/HR Furosemide 40 mg DAILY IV 05/22/24 10:00 05/23/24 09:30 40 MG Purified Water 300 ml Q6HR GT 05/22/24 12:00 05/23/24 06:00 300 ML Lactulose 30 ml Q6HR NG 05/22/24 12:00 05/23/24 06:34 30 ML Enteral Nutritional Formula 1,000 ml 30ML/HR GT 05/22/24 06:30 05/22/24 14:59 1,000 ML Examination: LUNGS:Normal, CVS:Normal, MSK:Normal laboratory and microbiology Laboratory Tests 05/23/24 09:18 05/23/24 03:14 Test 05/23/24 03:14 Range/Units Serum Glucose 182 H 74-106 mg/dL Microbiology Date/Time Source Procedure Growth Status 05/15/24 09:22 Blood Blood Culture - Final NO GROWTH AFTER 5 DAYS OF INCUBATION. Complete 05/13/24 14:00 Nose MRSA Screen - Final Complete 05/13/24 13:55 Sputum Gram Stain - Final Complete 05/13/24 13:55 Sputum Respiratory Culture - Final Complete 05/07/24 01:30 Voided Urine Urine Culture - Final Klebsiella pneumoniae - ESBL Complete Problem List/Assessment/Plan Problem List/Assessment/Plan Acute kidney injury hemodynamically mediated in the setting of hypotension and shock +contrast Acute respiratory failure, patient intubated on ventilator Aspiration pneumonia Septic shock Hypernatremia due to insensible water loss Hepatic encephalopathy Decompensated liver cirrhosis Acute methamphetamine intoxication heavy alcoholism Hepatitis-C Multidrug resistant ESBL urinary tract infection Recommendations Kidney function is improving Increased urine output Mcduffie catheter Strict I&Os I agree with hypotonic IVF hydration IV Levophed for blood pressure support IV antibiotics We will continue to follow Plan discussed with: Other (Nurse) My Orders My Orders Orders - MELISA MORGAN MD Procedure Category Date Status Time Urine Sodium LAB 05/23/24 Logged 09:06 Urine LAB 05/23/24 Logged Protein/Creatinine 09:06 Dietary Evaluation Review Comments: 1. Per RN, pt is able to drink liquid but unable to manage jello. Will Downgrade his CCHO-60 diet to pureed texture. 2. offer Glucern BID if PO is still poor 3. elevated BUN, f/u and reassess after pt has a GI and nephrology consult. 4. consider clinimix as a form of protein supplementation as pt has very low albumin. Expected Outcomes/Goals: Gradual wt loss, better DM control. MELISA MORGAN MD May 23, 2024 11:46
[2024-05-23 13:01] LABS: Protein, Urine 24.5 mg/dL (1-14)
[2024-05-23 13:03] LABS: Creatinine, Urine 26.09 mg/dL (30.0-125.0); Urine Protein/Creatinine Ratio 0.94
[2024-05-23] MEDS: MIDAZOLAM HCL 5 MG/ML-1ML VIAL ONE (14:24)
[2024-05-23] MEDS: MIDAZOLAM HCL 5 MG/ML-1ML VIAL IV ONE (14:24)
[2024-05-23 14:50] LABS: Urine Bacteria FEW /hpf (None Seen); Urine Blood 2+ /uL (Negative); Urine Budding Yeast OCCASIONAL /hpf (None Seen); Urine Clarity Clear (Clear); Urine Color Dark-Yellow (Yellow); Urine Hyaline Cast FEW /lpf (0 - 2); Urine Protein, UAD Negative (Negative); Urine Squamous Epithelial Cell FEW /hpf (<5); Urine Urobilinogen Normal (Negative); Urine WBC 2 /HPF (0-3); Urine pH 5.5 (5.0-9.0)
[2024-05-23] MEDS: ALBUMIN 25% 100 ML IV ONE (18:42)
[2024-05-23] MEDS: CEFTAZIDIME-AVIBACTAM 2.5gm in D5W 100 ML IV SCH (20:20)
--- NOTE | 2024-05-23 21:39 | DVHPN2 ---
Progress Note - Dictate Date Seen: May 23, 2024 Medical Necessity Reason Pt with a Central, PICC or Fol: Yes The following are medically ne: PICC Line, Mcduffie Catheter Reason for mcduffie catheter: Strict I&O Subjective Patient is still not waking up, he is off sedation Patient is having loose stools with the lactulose supplementation and has a flexi Seal in [place] [address] Patient was started on Reglan 5 mg IV q.8 hours for high gastric residuals Today is tube feedings have been resumed at a low rate and we will monitor his residuals Patient has also been started on IV Clinimix at 42 mL/hour vital signs Vital Sign Date Time Temp Pulse Resp B/P (MAP) Pulse Ox O2 Delivery O2 Flow Rate FiO2 05/23/24 20:00 114 05/23/24 20:00 24 100/53 (69) 97 35 05/23/24 20:00 Mechanical Ventilator+ 05/23/24 16:30 98.1 98.1 Total Intake and Output 05/22/24 05/22/24 05/23/24 15:00 23:00 07:00 Intake Total 882.815 ml 1649.440 ml 1688.000 ml Output Total 1600 ml 1100 ml Balance 882.815 ml 49.440 ml 588.000 ml medications Current Medications Medications Dose Ordered Sig/Kenisha Route Start Time Stop Time Status Last Admin Dose Admin Sodium Chloride 10 ml Q8HR IV 05/07/24 06:00 05/23/24 14:00 10 ML Ondansetron HCl 4 mg Q4HP PRN IV 05/06/24 22:15 Pantoprazole Sodium 40 mg BID IV 05/08/24 22:00 05/23/24 09:30 40 MG Thiamine HCl 100 mg DAILY IV 05/10/24 10:00 05/23/24 09:31 100 MG Flecainide Acetate 100 mg Q12HR PO 05/09/24 22:00 05/23/24 09:32 100 MG Folic Acid 1 mg DAILY PO 05/11/24 10:00 05/23/24 09:32 1 MG Diagnostic Test (Pha) 1 strip Q6HR 05/10/24 18:00 05/23/24 18:42 1 STRIP Insulin Human Regular FOLLOW SLIDING SCALE Q6HR SC 05/10/24 18:00 05/23/24 19:00 2 UNITS Dextrose 50 ml UD IV 05/10/24 17:15 Sodium Chloride 10 ml QSHIFT@10,22 IV 05/13/24 22:00 05/23/24 09:32 10 ML Fentanyl Citrate 250 ml @ 2.5 mls/hr Q24H IV 05/14/24 04:45 05/23/24 20:22 17.5 MLS/HR Albuterol 2.5 mg Q4HR NEB 05/15/24 14:00 05/23/24 18:33 2.5 MG Ipratropium [place] 0.5 mg Q4HR NEB 05/15/24 14:00 05/23/24 18:33 0.5 MG Phenylephrine HCl 80 mg/Sodium Chloride 250 ml @ 7.5 mls/hr Q24H IV 05/16/24 11:15 Norepinephrine Bitartrate 32 mg/ Sodium Chloride 250 ml @ 0.938 mls/ hr Q24H IV 05/16/24 11:15 05/23/24 01:44 9.375 MLS/HR Metoclopramide HCl 5 mg Q8HR IV 05/16/24 22:00 05/23/24 06:34 5 MG Ursodiol 300 mg BID PO 05/17/24 10:00 05/23/24 09:32 300 MG Dexmedetomidine HCl 400 mcg/ Dextrose 100 ml @ 5.96 mls/hr [id number] IV 05/18/24 10:15 Furosemide 40 mg DAILY IV 05/22/24 10:00 05/23/24 09:30 40 MG Purified Water 300 ml Q6HR GT 05/22/24 12:00 05/23/24 18:42 300 ML Enteral Nutritional Formula 1,000 ml 30ML/HR GT 05/22/24 06:30 05/22/24 14:59 1,000 ML Patient Own Medication 2.5 mg Q8HR IV 05/23/24 14:00 Lactulose 30 ml Q12HR NG 05/23/24 22:00 Nystatin 1 applic BID TOP 05/23/24 22:00 Ceftazidime Sodium 2.5 gm/ Dextrose 100 ml @ 50 mls/hr Q8H IV 05/23/24 18:00 05/23/24 20:20 50 MLS/HR objective General: Intubated sedated HEENT: NC/AT EOMI dry mucous membranes Heart: Tachycardic regular rhythm Abdomen: Soft nontender nondistended Extremity: No clubbing cyanosis or edema laboratory and microbiology Laboratory Tests 05/23/24 09:18 05/23/24 03:14 Test 05/23/24 03:14 Range/Units Serum Glucose 182 H 74-106 mg/dL Problems(with codes): (1) Aspiration pneumonia (2) MRSA (methicillin resistant Staphylococcus aureus) septicemia (3) Liver failure (4) Cirrhosis (5) Ascites (6) Pulmonary vascular congestion (7) Anemia, unspecified (8) Generalized weakness (9) Hepatic encephalopathy Prognosis Plan Overall clinical condition is poor He had worsening renal function which is appears to have stabilized Patient had severe leukocytosis which was also starting to trend down Patient is on IV meropenem We will cut back on the lactulose to 30 mL q.12 hours We will continue to monitor labs To CT heads have been negative, recommend Neuro evaluation Patient came in obtunded and altered even prior to intubation Dietary Evaluation Review Comments: 1. Per RN, pt is able to drink liquid but unable to manage jello. Will Downgrade his CCHO-60 diet to pureed texture. 2. offer Glucern BID if PO is still poor 3. elevated BUN, f/u and reassess after pt has a GI and nephrology consult. 4. consider clinimix as a form of protein supplementation as pt has very low albumin. Expected Outcomes/Goals: Gradual wt loss, better DM control. Plan discussed with: Other (Dr Cortez) PAULINA BAINS MD May 23, 2024 21:39
[2024-05-23] MEDS: NYSTATIN TOPICAL POWDER 15GM TOP SCH (22:00)
[2024-05-23] MEDS: METOCLOPRAMIDE HCL 5MG/ml INJ 2ml VIAL IV SCH (23:05)
[2024-05-23] MEDS: LACTULOSE 20Gm/30ML SOLN NG SCH (23:05)
[2024-05-24] VITALS (116 sets, daily range): BP systolic 81–124; BP diastolic 42–71; PULSE 106–115; RESP 8–24; TEMP 96.9–98.7; O2SAT 92–100
[2024-05-24] MEDS: MIDAZOLAM DRIP 50 mg/50mL 50 ML IV SCH (03:41)
[2024-05-24 03:57] LABS: Basophils # (auto) 0 10 ^3/uL (0-0.2); Basophils % (auto) 0.1 % (0.0-2.0); Eosinophils # (auto) 0.3 10 ^3/uL (0-0.8); Eosinophils % (auto) 1.6 % (0.0-7.0); Hematocrit 26.4 % (41.0-53.0); Hemoglobin 8.6 g/dL (13.5-17.5); Lymphocytes # (auto) 0.6 10 ^3/uL (0.4-5.4); Lymphocytes % (auto) 3.1 % (10.0-50.0); Mean Corpuscular Hemoglobin 30.2 pg (28.0-32.0); Mean Corpuscular Hgb Conc. 32.7 g/dL (32.0-36.0); Mean Corpuscular Volume 92.3 fL (80.0-100.0); Monocytes # (auto) 1.2 10 ^3/uL (0-1.3); Monocytes % (auto) 5.7 % (0.0-12.0); Neutrophils # (auto) 18.3 10 ^3/uL (1.6-8.6); Neutrophils % (auto) 89.5 % (37.0-80.0); Nucleated Red Blood Cells % 0.4 %; Platelet Count (auto) 98 10^3/uL (140-450); Red Blood Cells 2.86 10^6/uL (4.5-5.90); Red Cell Distribution Width 24.4 % (11.8-14.3); White Blood Cell 20.4 10^3/uL (4.4-10.8)
[2024-05-24 04:17] LABS: Anion Gap 9 (5-15); Calcium 9.7 mg/dL (8.7-10.4); Carbon Dioxide 27 mmol/L (20-31); Potassium 3.6 mmol/L (3.5-5.1)
[2024-05-24 04:21] LABS: BUN/Creatinine Ratio 38.9 (10.0-20.0)
[2024-05-24 04:24] LABS: Alanine Aminotransferase 73 U/L (7-40); Albumin 2.6 g/dL (3.2-4.8); Alkaline Phosphatase 311 U/L (46-116); Aspartate Aminotransferase 125 U/L (13-40); Bilirubin, Total 23.8 mg/dL (0.2-1.0); Blood Urea Nitrogen 82 mg/dL (9-23); Chloride 110 mmol/L (98-107); Glucose 143 mg/dL (74-106); Magnesium 2.7 mg/dL (1.6-2.6); Sodium 146 mmol/L (136-145); Total Protein 5.6 g/dL (5.7-8.2)
[2024-05-24 04:55] LABS: Anisocytosis Slight; Ovalocytes FEW
[2024-05-24 04:56] LABS: Platelet Estimate Decreased
--- NOTE | 2024-05-24 05:15 | DVH ---
EXAM: XY CHEST XRAY 1 VIEW HISTORY: On mechanical ventilation COMPARISON: XY CHEST PORTABLE on DOS: 05/23/24, XY CHEST PORTABLE on DOS: 05/22/24, XY CHEST PORTABLE on DOS: 05/21/24, XY CHEST PORTABLE on DOS: 05/20/24, XY CHEST PORTABLE on DOS: 05/19/24 TECHNIQUE: Portable upright AP view of the chest was performed. FINDINGS: Endotracheal tube is re-identified with its tip 4.6 cm above the jim. OG tube and right upper extr emity PICC line are re-identified. No pneumothorax. There are diffuse interstitial opacities througho ut the left lung. There is patchy opacity in the right lung base. The heart is borderline enlarged. IMPRESSION: 1. Mechanical ventilation with tubes and lines as above. 2. Diffuse left lung interstitial opacities and right lung base patchy infiltrate, stable.
--- NOTE | 2024-05-24 09:52 | DVHPN2 ---
Progress Note Date Seen: May 24, 2024 Medical Necessity Reason Pt with a Central, PICC or Fol: Yes The following are medically ne: PICC Line, Mcduffie Catheter Reason for mcduffie catheter: Strict I&O Subjective Review of Systems: RESPIRATORY:Abnormal Other Systems: Patient seen and examined by myself today in follow-up, patient remained intubated on ventilator Objective vital signs Vital Sign Date Time Temp Pulse Resp B/P (MAP) Pulse Ox O2 Delivery O2 Flow Rate FiO2 05/24/24 08:18 111 20 104/55 (71) 95 35 05/24/24 06:00 Mechanical Ventilator+ 05/24/24 00:00 98.7 98.7 Total Intake and Output 05/23/24 05/23/24 05/24/24 15:00 23:00 07:00 Intake Total 74.064 ml 1342.565 ml 2006.377 ml Output Total 1925 ml 1400 ml Balance 74.064 ml -582.435 ml 606.377 ml medications Current Medications Medications Dose Ordered Sig/Kenisha Route Start Time Stop Time Status Last Admin Dose Admin Sodium Chloride 10 ml Q8HR IV 05/07/24 06:00 05/24/24 06:00 10 ML Ondansetron HCl 4 mg Q4HP PRN IV 05/06/24 22:15 Pantoprazole Sodium 40 mg BID IV 05/08/24 22:00 05/23/24 23:05 40 MG Thiamine HCl 100 mg DAILY IV 05/10/24 10:00 05/23/24 09:31 100 MG Flecainide Acetate 100 mg Q12HR PO 05/09/24 22:00 05/23/24 22:00 100 MG Folic Acid 1 mg DAILY PO 05/11/24 10:00 05/23/24 09:32 1 MG Diagnostic Test (Pha) 1 strip Q6HR 05/10/24 18:00 05/24/24 06:06 1 STRIP Insulin Human Regular FOLLOW SLIDING SCALE Q6HR SC 05/10/24 18:00 05/24/24 06:06 2 UNITS Dextrose 50 ml UD IV 05/10/24 17:15 Sodium Chloride 10 ml QSHIFT@10,22 IV 05/13/24 22:00 05/23/24 23:05 10 ML Fentanyl Citrate 250 ml @ 2.5 mls/hr Q24H IV 05/14/24 04:45 05/24/24 03:29 35 MLS/HR Albuterol 2.5 mg Q4HR NEB 05/15/24 14:00 05/24/24 06:21 2.5 MG Ipratropium [place] 0.5 mg Q4HR NEB 05/15/24 14:00 05/24/24 06:21 0.5 MG Phenylephrine HCl 80 mg/Sodium Chloride 250 ml @ 7.5 mls/hr Q24H IV 05/16/24 11:15 Norepinephrine Bitartrate 32 mg/ Sodium Chloride 250 ml @ 0.938 mls/ hr Q24H IV 05/16/24 11:15 05/24/24 04:13 10.313 MLS/HR Ursodiol 300 mg BID PO 05/17/24 10:00 05/23/24 23:06 300 MG Dexmedetomidine HCl 400 mcg/ Dextrose 100 ml @ 5.96 mls/hr [id number] IV 05/18/24 10:15 Furosemide 40 mg DAILY IV 05/22/24 10:00 05/23/24 09:30 40 MG Purified Water 300 ml Q6HR GT 05/22/24 12:00 05/24/24 06:06 300 ML Enteral Nutritional Formula 1,000 ml 30ML/HR GT 05/22/24 06:30 05/22/24 14:59 1,000 ML Patient Own Medication 2.5 mg Q8HR IV 05/23/24 14:00 Lactulose 30 ml Q12HR NG 05/23/24 22:00 05/23/24 23:05 30 ML Nystatin 1 applic BID TOP 05/23/24 22:00 05/23/24 22:00 1 APPLIC Ceftazidime Sodium 2.5 gm/ Dextrose 100 ml @ 50 mls/hr Q8H IV 05/23/24 18:00 05/24/24 02:14 50 MLS/HR Metoclopramide HCl 5 mg BID IV 05/23/24 22:00 05/23/24 23:05 5 MG Midazolam HCl 50 ml @ 1 mls/hr Q24H IV 05/24/24 03:00 05/24/24 03:41 1 MLS/HR Vancomycin HCl 0 ml @ 0 mls/hr UD IV 05/24/24 10:00 UNV Examination: LUNGS:Normal, CVS:Normal, MSK:Normal laboratory and microbiology Laboratory Tests 05/24/24 03:20 Test 05/24/24 03:20 Range/Units Serum Glucose 143 H 74-106 mg/dL Microbiology Date/Time Source Procedure Growth Status 05/23/24 16:00 Sputum Gram Stain - Final Resulted 05/23/24 16:00 Sputum Respiratory Culture - Preliminary Resulted 05/23/24 13:22 Blood Blood Culture - Preliminary Resulted 05/13/24 14:00 Nose MRSA Screen - Final Complete 05/07/24 01:30 Voided Urine Urine Culture - Final Klebsiella pneumoniae - ESBL Complete Problem List/Assessment/Plan Problem List/Assessment/Plan Acute kidney injury superimposed Chronic Kidney Disease secondary to hemodynamically mediated ATN, FeNa > 2% Acute respiratory failure, intubated on ventilator Aspiration pneumonia Septic shock Hypernatremia due to insensible water loss Hepatic encephalopathy Decompensated liver cirrhosis Acute methamphetamine intoxication heavy alcoholism Hepatitis-C Multidrug resistant ESBL urinary tract infection Recommendations Kidney function is slowly improving Increased urine output Mcduffie catheter Strict I&Os I agree with hypotonic IVF hydration IV Levophed for blood pressure support Octreotide Free water IV antibiotics We will continue to follow Plan discussed with: Other (Nurse) Dietary Evaluation Review Comments: 1. Per RN, pt is able to drink liquid but unable to manage jello. Will Downgrade his CCHO-60 diet to pureed texture. 2. offer Glucern BID if PO is still poor 3. elevated BUN, f/u and reassess after pt has a GI and nephrology consult. 4. consider clinimix as a form of protein supplementation as pt has very low albumin. Expected Outcomes/Goals: Gradual wt loss, better DM control. MELISA MORGAN MD May 24, 2024 09:52
[2024-05-24] MEDS ORDERED: VANCOMYCIN PER PHARMACY 0 MG IV SCH (10:00)
[2024-05-24 10:16] LABS: Base Excess -0.4 mmol/L (-2.0-3.0)
[2024-05-24] MEDS: ALBUMIN 25% 100 ML IV ONE (10:26)
[2024-05-24] MEDS: D5W 5% 1,000 ML IV SCH (10:42)
[2024-05-24] MEDS: VANCOMYCIN 1GM/200ML PM 200 ML IV ONE (12:33)
[2024-05-24] MEDS: OCTREOTIDE ACETATE 100 MCG/ML VL SUBCUT SCH (15:54)
--- NOTE | 2024-05-24 18:56 | DVHPN2 ---
Progress Note - Dictate Date Seen: May 24, 2024 Medical Necessity Reason Pt with a Central, PICC or Fol: Yes The following are medically ne: PICC Line, Mcduffie Catheter Reason for mcduffie catheter: Strict I&O Subjective Patient is still not waking up, he is off sedation, intubated on ventilator Patient is having loose stools with the lactulose supplementation and has a flexi Seal in place His white count has trended down to 20 K I decrease the lactulose and IV Reglan Patient has also been started on IV Clinimix at 42 mL/hour Jaundice is worsening and patient has evidence of acute on chronic renal insufficiency vital signs Vital Sign Date Time Temp Pulse Resp B/P (MAP) Pulse Ox O2 Delivery O2 Flow Rate FiO2 05/24/24 18:17 108 22 100/58 (72) 96 35 05/24/24 16:20 Mechanical Ventilator+ 05/24/24 12:00 97.4 97.4 Total Intake and Output 05/23/24 05/23/24 05/24/24 15:00 23:00 07:00 Intake Total 74.064 ml 1342.565 ml 2053.690 ml Output Total 1925 ml 1400 ml Balance 74.064 ml -582.435 ml 653.690 ml medications Current Medications Medications Dose Ordered Sig/Kenisha Route Start Time Stop Time Status Last Admin Dose Admin Sodium Chloride 10 ml Q8HR IV 05/07/24 06:00 05/24/24 15:54 10 ML Ondansetron HCl 4 mg Q4HP PRN IV 05/06/24 22:15 Pantoprazole Sodium 40 mg BID IV 05/08/24 22:00 05/24/24 10:15 40 MG Thiamine HCl 100 mg DAILY IV 05/10/24 10:00 05/24/24 10:16 100 MG Flecainide Acetate 100 mg Q12HR PO 05/09/24 22:00 05/24/24 10:12 100 MG Folic Acid 1 mg DAILY PO 05/11/24 10:00 05/24/24 10:12 1 MG Diagnostic Test (Pha) 1 strip Q6HR 05/10/24 18:00 05/24/24 12:33 1 STRIP Insulin Human Regular FOLLOW SLIDING SCALE Q6HR SC 05/10/24 18:00 05/24/24 12:42 4 UNITS Dextrose 50 ml UD IV 05/10/24 17:15 Sodium Chloride 10 ml QSHIFT@10,22 IV 05/13/24 22:00 05/24/24 10:17 10 ML Fentanyl Citrate 250 ml @ 2.5 mls/hr Q24H IV 05/14/24 04:45 05/24/24 17:31 35 MLS/HR Albuterol 2.5 mg Q4HR NEB 05/15/24 14:00 05/24/24 18:16 2.5 MG Ipratropium [place] 0.5 mg Q4HR NEB 05/15/24 14:00 05/24/24 18:16 0.5 MG Phenylephrine HCl 80 mg/Sodium Chloride 250 ml @ 7.5 mls/hr Q24H IV 05/16/24 11:15 Norepinephrine Bitartrate 32 mg/ Sodium Chloride 250 ml @ 0.938 mls/ hr Q24H IV 05/16/24 11:15 05/24/24 04:13 10.313 MLS/HR Ursodiol 300 mg BID PO 05/17/24 10:00 05/24/24 10:14 300 MG Dexmedetomidine HCl 400 mcg/ Dextrose 100 ml @ 5.96 mls/hr [id number] IV 05/18/24 10:15 Enteral Nutritional Formula 1,000 ml 30ML/HR GT 05/22/24 06:30 05/22/24 14:59 1,000 ML Lactulose 30 ml Q12HR NG 05/23/24 22:00 05/24/24 10:20 30 ML Nystatin 1 applic BID TOP 05/23/24 22:00 05/24/24 10:12 1 APPLIC Ceftazidime Sodium 2.5 gm/ Dextrose 100 ml @ 50 mls/hr Q8H IV 05/23/24 18:00 05/24/24 10:14 50 MLS/HR Metoclopramide HCl 5 mg BID IV 05/23/24 22:00 05/24/24 10:19 5 MG Midazolam HCl 50 ml @ 1 mls/hr Q24H IV 05/24/24 03:00 05/24/24 10:20 5 MLS/HR Vancomycin HCl 0 ml @ 0 mls/hr UD IV 05/24/24 10:00 Octreotide Acetate 100 mcg TID SUBCUT 05/24/24 14:00 05/24/24 15:54 100 MCG Dextrose 1,000 ml @ 50 mls/hr Q20H IV 05/24/24 10:00 05/24/24 10:42 50 MLS/HR Purified Water 200 ml Q6HR GT 05/24/24 18:00 objective General: Intubated sedated HEENT: NC/AT EOMI dry mucous membranes Heart: Tachycardic regular rhythm Abdomen: Soft nontender nondistended Extremity: No clubbing cyanosis or edema laboratory and microbiology Laboratory Tests 05/24/24 03:20 Test 05/24/24 03:20 Range/Units Serum Glucose 143 H 74-106 mg/dL Problems(with codes): (1) Aspiration pneumonia (2) MRSA (methicillin resistant Staphylococcus aureus) septicemia (3) Hepatitis C (4) Liver failure (5) Cirrhosis (6) Ascites (7) Anemia, unspecified (8) Generalized weakness (9) Hepatic encephalopathy (10) Drug abuse (11) Transaminitis (12) Jaundice Prognosis PLAN Patient with impending hepatorenal failure, sepsis Altered mental status ; tube feedings at 30 mL/hour Patient has been on ursodiol for worsening jaundice and elevated liver enzymes Patient was on IV steroids that have been discontinued Add probiotics if diarrhea persists I have decrease Reglan to 5 mg q.12 hours and if the gastric residuals remain low we will decrease it to once a day Overall prognosis remains poor and guarded Discuss with about baseline neuro status Overall clinical condition is poor He had worsening renal function which is appears to have stabilized Patient had severe leukocytosis which was also starting to trend down Patient is on IV meropenem We will cut back on the lactulose to 30 mL q.12 hours We will continue to monitor labs To CT heads have been negative, recommend Neuro evaluation Patient came in obtunded and altered even prior to intubation Dietary Evaluation Review Comments: 1. Per RN, pt is able to drink liquid but unable to manage jello. Will Downgrade his CCHO-60 diet to pureed texture. 2. offer Glucern BID if PO is still poor 3. elevated BUN, f/u and reassess after pt has a GI and nephrology consult. 4. consider clinimix as a form of protein supplementation as pt has very low albumin. Expected Outcomes/Goals: Gradual wt loss, better DM control. Plan discussed with: Other (None) PAULINA BAINS MD May 24, 2024 18:56
[2024-05-24] MEDS: FREE WATER GT SCH (19:33)
[2024-05-24] MEDS: VANCOMYCIN 500mg/100mL 100 ML IV ONE (19:33)
--- NOTE | 2024-05-24 20:21 | DVHPNRES ---
Progress Note Date Seen: May 24, 2024 Resident Creating Document: TIERRA GALEAS RESIDENT Medical Necessity Reason Pt with a Central, PICC or Fol: Yes The following are medically ne: PICC Line, Mcduffie Catheter Reason for mcduffie catheter: Strict I&O Subjective Review of Systems HPI Patient is a 63-year-old male with a past medical history of liver cirrhosis likely secondary to hep C, liver shunt, CHF, diabetes mellitus, prostate cancer, history of lower GI bleed status post blood transfusion was brought to the ER with a chief complaint of drug overdose. Information gathered from reviewing the chart and talking with the patient's family, as per he was found gargling and unresponsive in a car, possible overdose of morphine following which EMS were called. EMS gave the patient Narcan and he woke up but was unable to recall what happened. Urine drug screen in the ER was positive for amphetamine and opiates. Was obtunded and was on oxygen support. While in the ER patient went into atrial fibrillation rapid ventricular response following which she was given diltiazem. Patient while in the hospital had altered mental status, sepsis likely due to UTI with the underlying liver cirrhosis had to be put on mechanical ventilation and put on vasopressor support. Patient was transferred to the ICU for further care. In ICU patient was treated with meropenem for Klebsiella pneumoniae ESBL multidrug resistant and also coverage for suspected aspiration pneumonia in the right lower lung, diuresis for with the Lasix, rifaximin and lactulose for hepatic encephalopathy, Patient's blood cultures were done twice and did not show any growth after 5 days, respiratory sputum cultures did not show any growth. Patient's mental status remained obtunded even after turning of the sedation, had vasopressor requirements therefore he could not be extubated. Past medical history: Liver cirrhosis likely secondary to hep C, liver shunt, CHF, type 2 diabetes mellitus, prostate cancer status post radiotherapy, history of lower GI bleed s/p blood transfusions Past surgical history: Hernia repair, tips, live knee surgery Social history: Patient lives with the , history of smoking less than 1 pack per day, reported alcohol and illicit drug usage Home medications: Lasix 20 mg b.i.d., gabapentin 300 mg q.8 hours, insulin glargine 15 units SC b.i.d., spironolactone 50 mg daily Review of systems 05/24/2024 Patient seen and examined at the bedside. - Patient was started on fentanyl and midazolam drip. Norepinephrine was weaned off from 22->18 mcg/min maintaining a MAP> 65. Patient was in sinus tachycardia with a heart rate ranging 100-115/min. - current RASS -3 - patient did not have any fever with temperature 99.9 F, WBC count trending down. Repeat blood cultures preliminary show growth of Gram-positive cocci in clusters in 1 bottle, we repeated another set of blood cultures. - over the last 24 hours patient had a urine output of 3325ml with a positive fluid balance of 200 mL, Lasix discontinued. Patient had a total bowel movement of 800mL in the flexiseal over the last 24 hours, no blood seen. Objective vital signs Vital Sign Date Time Temp Pulse Resp B/P (MAP) Pulse Ox O2 Delivery O2 Flow Rate FiO2 05/24/24 18:17 108 22 100/58 (72) 96 35 05/24/24 16:20 Mechanical Ventilator+ 05/24/24 12:00 97.4 97.4 Total Intake and Output 05/23/24 05/23/24 05/24/24 15:00 23:00 07:00 Intake Total 74.064 ml 1342.565 ml 2053.690 ml Output Total 1925 ml 1400 ml Balance 74.064 ml -582.435 ml 653.690 ml medications Current Medications Medications Dose Ordered Sig/Kenisha Route Start Time Stop Time Status Last Admin Dose Admin Sodium Chloride 10 ml Q8HR IV 05/07/24 06:00 05/24/24 15:54 10 ML Ondansetron HCl 4 mg Q4HP PRN IV 05/06/24 22:15 Pantoprazole Sodium 40 mg BID IV 05/08/24 22:00 05/24/24 10:15 40 MG Thiamine HCl 100 mg DAILY IV 05/10/24 10:00 05/24/24 10:16 100 MG Flecainide Acetate 100 mg Q12HR PO 05/09/24 22:00 05/24/24 10:12 100 MG Folic Acid 1 mg DAILY PO 05/11/24 10:00 05/24/24 10:12 1 MG Diagnostic Test (Pha) 1 strip Q6HR 05/10/24 18:00 05/24/24 19:33 1 STRIP Insulin Human Regular FOLLOW SLIDING SCALE Q6HR SC 05/10/24 18:00 05/24/24 19:34 2 UNITS Dextrose 50 ml UD IV 05/10/24 17:15 Sodium Chloride 10 ml QSHIFT@10,22 IV 05/13/24 22:00 05/24/24 10:17 10 ML Fentanyl Citrate 250 ml @ 2.5 mls/hr Q24H IV 05/14/24 04:45 05/24/24 17:31 35 MLS/HR Albuterol 2.5 mg Q4HR NEB 05/15/24 14:00 05/24/24 18:16 2.5 MG Ipratropium [place] 0.5 mg Q4HR NEB 05/15/24 14:00 05/24/24 18:16 0.5 MG Phenylephrine HCl 80 mg/Sodium Chloride 250 ml @ 7.5 mls/hr Q24H IV 05/16/24 11:15 Norepinephrine Bitartrate 32 mg/ Sodium Chloride 250 ml @ 0.938 mls/ hr Q24H IV 05/16/24 11:15 05/24/24 04:13 10.313 MLS/HR Ursodiol 300 mg BID PO 05/17/24 10:00 05/24/24 10:14 300 MG Dexmedetomidine HCl 400 mcg/ Dextrose 100 ml @ 5.96 mls/hr [id number] IV 05/18/24 10:15 Enteral Nutritional Formula 1,000 ml 30ML/HR GT 05/22/24 06:30 05/22/24 14:59 1,000 ML Lactulose 30 ml Q12HR NG 05/23/24 22:00 05/24/24 10:20 30 ML Nystatin 1 applic BID TOP 05/23/24 22:00 05/24/24 10:12 1 APPLIC Ceftazidime Sodium 2.5 gm/ Dextrose 100 ml @ 50 mls/hr Q8H IV 05/23/24 18:00 05/24/24 10:14 50 MLS/HR Metoclopramide HCl 5 mg BID IV 05/23/24 22:00 05/24/24 10:19 5 MG Midazolam HCl 50 ml @ 1 mls/hr Q24H IV 05/24/24 03:00 05/24/24 10:20 5 MLS/HR Vancomycin HCl 0 ml @ 0 mls/hr UD IV 05/24/24 10:00 Octreotide Acetate 100 mcg TID SUBCUT 05/24/24 14:00 05/24/24 15:54 100 MCG Dextrose 1,000 ml @ 50 mls/hr Q20H IV 05/24/24 10:00 05/24/24 10:42 50 MLS/HR Purified Water 200 ml Q6HR GT 05/24/24 18:00 05/24/24 19:33 200 ML Examination Patient is ventilated and on sedation with RASS -3 Gen - conjunctival pallor present , scleral icterus present, no cyanosis, no clubbing, no LAD, bilateral 2+ pitting pedal edema Skin - Patients skin is warm and dry, multiple spider angiomata skin on the chest, erythematous rash seen in the groin on both the sides HEENT - normocephalic, atraumatic, moist mucous membranes. Neck - no LAD, no JV distention Pulmonary - decreased breath sounds in the right lower lung with inspiratory crackles, no wheezing, no stridor. cardiovascular - variable S1,S2 heard, no added sounds, no murmurs heard. capillary refill normal <2 secs. GI - soft abdomen. no hepatospleenomegaly. Bowel Sounds normoactive Neurological - patient was intubated with a RASS -2 on fentanyl, plantar reflex downgoing, gag reflex present, pupils equal and reactive laboratory and microbiology Laboratory Tests 05/24/24 03:20 Test 05/24/24 03:20 Range/Units Serum Glucose 143 H 74-106 mg/dL Microbiology Date/Time Source Procedure Growth Status 05/23/24 16:00 Sputum Gram Stain - Final Resulted 05/23/24 16:00 Sputum Respiratory Culture - Preliminary Resulted 05/23/24 13:22 Blood Blood Culture - Preliminary Resulted 05/23/24 12:30 Urine - [place] Urine Culture - Preliminary Resulted 05/13/24 14:00 Nose MRSA Screen - Final Complete Problem List/Assessment/Plan Problem List/Assessment/Plan Neurological # Acute metabolic encephalopathy likely hepatic encephalopathy/toxic drug- induced - head CT 05/07/24 showed no acute intracranial hemorrhage, midline shift or mass effect - urine drug screen at admission positive for opiates and amphetamines - ammonia 37, patient on lactulose - RASS -3, on fentanyl and midazolam drip Respiratory # Acute hypoxemic/hypercarbic respiratory failure # suspected aspiration pneumonia likely due to Gram+/-bacteria # pulmonary edema with right-sided pleural effusion - on mechanical ventilation with a FiO2 30%, PEEP 5, respiratory rate 20, tidal volume 500ml, PO2/FiO2 ratio- 256 - ABG reviewed today was normal, pH 7.38 with a pCO2 41.3 and HC03 23.9 - chest x-ray shows bilateral pulmonary edema with blunting of the right CP angle - was off sedation since 05/19. patient had ventilator dyssynchrony and episodes of agitation following which Fentanyl and midazolam drip were started - antibiotics changed from meropenem to ceftazidime-avibactam 2.5 mg q.8 hours, vancomycin added as blood culture showed growth of positive cocci in clusters - albuterol and ipratropium med nebs q.4 hours - patient has vasopressor requirement and delirious and is currently not eligible for a spontaneous breathing trial Cardiovascular # Septic shock likely d/t UTI vs pneumonia # new onset atrial fibrillation with RVR # NSTEMI type 2 likely due to demand supply mismatch - Echo shows LVEF 60% with concentric LVH, right atrial enlargement, right ventricular enlargement - on vasopressor support with norepinephrine, we will try to wean off norepinephrine, maintaining MAP > 65mmhg - flecainide 100 mg b.i.d. for AFib - [id number] Vasc- 1, has-bled 2 , currently anticoagulation is held, with the patient SOB positive and history of GI bleeding Gastrointestinal # decompensated liver cirrhosis # history of hepatitis-C infection # ?SBP # hepatic encephalopathy - stool occult blood positive 05/09 - noted increase in bilirubin, AST ALT and ALP since yesterday - low albumin, elevated PT INR, thrombocytopenia with a platelets at 103, - lactulose 30 mL q.12h - currently on tube feeding at 30 mL/hour with gastric residual volume in the morning at 40 mLs, decreased frequency of metoclopramide to q.12 hours - Protonix 40 mg IV b.i.d. - Ursodiol 300 mg b.i.d. - Lasix discontinued - 1 dose of albumin 25 mg given today Nephrology # acute kidney injury likely hemodynamically mediated due to shock,+ contrast likely ATN # hypernatremia - BUN 82 and creatinine 2.11, trending down - urine output over 24 hours at 3300 mL - FENa calculated today at 3% - free water deficit 3.2 L - free water 200 mL via NG tube q.6 hours - IV D5W Infectious disease # septic shock likely due to UTI versus pneumonia versus ?SBP # candidal infection in the groin - initial urine culture showed growth of multidrug resistant Klebsiella ESBL, on meropenem - initial blood cultures, respiratory sputum cultures negative - 05/23 WBC count increased from 9300 to 60675 with 91% neutrophils, - repeat blood cultures 1 bottle showed growth of Gram-positive cocci in clusters, which could be contaminant, with a blood cultures repeated - sputum cultures preliminary show growth of young colonies - ceftazidime-avibactam 2.5 mg q.8 hours and vancomycin per pharmacy with trough to be maintained less than 15 - nystatin powder q.12h for [facility] # Insulin dependent Diabetes mellitus with hyperglycemia - On ISS - goal blood glucose 140-180 mg/dL Polysubstance Use Acute opiate/methamphetamine intoxication DVT prophylaxis: Sequential compression device PUD prophylaxis: Protonix PICC line in the left forearm- placed on 05/13/2024 Mcduffie's catheter- placed on 05/07/2024 Endotracheal intubation- done on 05/13/2024 Goals of care discussed with the patient's Lorna at bedside for over 25 minutes. prognosis guarded Code status- Full code Critical care time spent was 82 mins Plan discussed with Dr. Amaro Plan discussed with: Spouse (Lorna), Other (RN ( Kaitlynn )) My Orders My Orders Orders - TIERRA GALEAS RESIDENT Procedure Category Date Status Time Chest Xray 1 View XY 05/24/24 Resulted 04:00 Vancomycin Per PHA 05/24/24 In Process Pharmacy 10:00 Abg W/ Co-Ox RT 05/24/24 Logged 10:00 Blood Culture CATHRYN 05/24/24 Uncollected 11:27 Vancomycin,Random LAB 05/25/24 Verified 05:00 Creatinine LAB 05/25/24 Verified 05:00 Vancomycin Per ANTHONY 05/24/24 In Process Pharmacy Protoc 05:[address] 05/24/24 Logged 18:16 Complete Blood Count LAB 05/25/24 Verified 04:00 Comprehensive LAB 05/25/24 Verified Metabolic Panel 04:00 Magnesium LAB 05/25/24 Verified 04:00 Phosphorus LAB 05/25/24 Verified 04:00 Dietary Evaluation Review Comments: 1. Per RN, pt is able to drink liquid but unable to manage jello. Will Downgrade his CCHO-60 diet to pureed texture. 2. offer Glucern BID if PO is still poor 3. elevated BUN, f/u and reassess after pt has a GI and nephrology consult. 4. consider clinimix as a form of protein supplementation as pt has very low albumin. Expected Outcomes/Goals: Gradual wt loss, better DM control. Date of Service: May 24, 2024 Billing Provider: JUVENAL AMARO MD Common Visit Codes: 12318-[id number] CARE 30-74 MIN, 93461-[id number] CARE-EACH +30MIN TIERRA GALEAS RESIDENT May 24, 2024 20:21 JUVENAL AMARO MD May 25, 2024 16:24
[2024-05-25] VITALS (112 sets, daily range): BP systolic 88–113; BP diastolic 45–68; PULSE 105–114; RESP 15–22; TEMP 97.8–98.8; O2SAT 93–100
[2024-05-25 03:56] LABS: Basophils # (auto) 0 10 ^3/uL (0-0.2); Basophils % (auto) 0.1 % (0.0-2.0); Eosinophils # (auto) 0.7 10 ^3/uL (0-0.8); Eosinophils % (auto) 3.4 % (0.0-7.0); Hematocrit 25.9 % (41.0-53.0); Hemoglobin 8.4 g/dL (13.5-17.5); Lymphocytes # (auto) 0.8 10 ^3/uL (0.4-5.4); Mean Corpuscular Hemoglobin 30.6 pg (28.0-32.0); Mean Corpuscular Hgb Conc. 32.6 g/dL (32.0-36.0); Mean Corpuscular Volume 93.8 fL (80.0-100.0); Monocytes # (auto) 1.2 10 ^3/uL (0-1.3); Monocytes % (auto) 6.4 % (0.0-12.0); Neutrophils # (auto) 16.8 10 ^3/uL (1.6-8.6); Neutrophils % (auto) 86.1 % (37.0-80.0); Nucleated Red Blood Cells % 0.2 %; Platelet Count (auto) 100 10^3/uL (140-450); Red Blood Cells 2.76 10^6/uL (4.5-5.90); Red Cell Distribution Width 25.3 % (11.8-14.3); White Blood Cell 19.5 10^3/uL (4.4-10.8)
[2024-05-25 04:13] LABS: Anion Gap 8 (5-15); Carbon Dioxide 27 mmol/L (20-31); Magnesium 2.5 mg/dL (1.6-2.6); Sodium 143 mmol/L (136-145)
[2024-05-25 04:16] LABS: Albumin 2.7 g/dL (3.2-4.8); Alkaline Phosphatase 292 U/L (46-116); Bilirubin, Total 25.2 mg/dL (0.2-1.0); Chloride 108 mmol/L (98-107); Glucose 161 mg/dL (74-106); Phosphorus 5.6 mg/dL (2.4-5.1); Potassium 3.5 mmol/L (3.5-5.1)
[2024-05-25 04:17] LABS: BUN/Creatinine Ratio 37.4 (10.0-20.0); Blood Urea Nitrogen 73 mg/dL (9-23)
[2024-05-25 04:18] LABS: Alanine Aminotransferase 76 U/L (7-40); Aspartate Aminotransferase 133 U/L (13-40); Total Protein 5.6 g/dL (5.7-8.2)
[2024-05-25 05:05] LABS: Anisocytosis Slight; Ovalocytes FEW; Platelet Estimate Decreased
[2024-05-25 06:55] LABS: Base Excess -1.5 mmol/L (-2.0-3.0)
--- NOTE | 2024-05-25 09:33 | DVHINCON2 ---
Date of service: May 25, [address] Chiu Reason for Consultation Encephalopathy History of Present Illness Mr. Linder is a 63 years old gentleman with a history of diabetes, liver cirrhosis, hepatitis-C infection, cancer, the patient was brought to the [facility] on 05/06/2024 with a chief complaint of overdose. At this time, the patient is intubated, on pressor drip, nonresponsive to verbal stimuli, the history obtained from his nurse, chart review. Apparently, the patient was mentally doing fine at the beginning On 05/07/2024, his found him nonresponsive, gurgling in the vehicle, when EMS came over, the patient was woke up after Narcan treatment, but he denied taking any drugs and he did not know what happened. Apparently, the patient was mentally doing fine at the beginning, but he was transferred ICU on 04/09/2024, the tube feeding started the same day. Later the patient was transferred to telemetry On 05/13/2024, he was seen a found to feeling, out of the all Room cavity, and the patient was nonresponsive painful stimuli, with respiratory distress, pulse ox down to 70%, the patient was resuscitated and intubated. Later respiratory sample showed tube feeding substances. The patient was has been in ICU, intubated, sedated since In the hospital, the patient was found to have metabolic/hepatic encephalopathy, liver failure, ascites, coagulopathy, sepsis with possible blood culture, septic shock, acute kidney failure Today, the patient was responsive to light touch stimuli, questionably to voice, he has obvious jaundice Code assistance, 05/13/2024 1305, tube feeding, out oral cavity, the patient was unresponsive to painful stimuli, agonal respiration, pulse ox was in 70s, the patient was intubated transferred to ICU Blood culture, 05/23/2024: Gram-positive cocci in clusters Urine culture, 05/07/2024: Klebsiella pneumoniae Stool Occult blood, 06/09/2024: Positive UDS, 05/07/2024: Opiates, amphetamine Plasma alcohol, 05/06/2024: <3 Urinalysis, 05/07/2024: WBC: 193, urine leukocyte esterase: 2+ ABG, 05/07/2024: Combined respiratory and metabolic acidosis, 05/13/2024: Metabolic acidosis, 05/15/2024: Respiratory acidosis, 05/19/2024: Respiratory acidosis, 05/25/2024: Respiratory acidosis WBC/HB/PLT/MCV, 05/25/2024: 19.5/8.4/100/93.8 PT/INR/PTT, 05/16/2024: 19.4/1.96, 05/20/2024: 17.2/1.71 BUN/CR, 05/25/2024: 73/1.95 GFR, 10/20/2024: 38 TBI/AST/ALT/AP, 05/25/2024: 25.2/133/76/292 NH3, 05/07/24: 84, 05/12/2024: 30, 05/13/24: 82, 05/16/2024: 43, 05/24/2024: 37 Chest x-ray, 05/07/2024: 1. Interval placement of enteric tube with terminus just distal to the expected level of the GEJ. 2. Interval increase in left lung base pulmonary markings suggestive of possible developing infiltrate. 3. Stable diffuse prominence of the pulmonary vasculature. CT head, 05/07/2024: No acute intracranial hemorrhage, midline shift or mass effect. If symptoms persist, further evaluation with MRI is recommended CVA, neck, 05/13/2024: No hemodynamically significant stenosis, aneurysm or dissection involving the major intracranial and neck vessels. The suggested fistulous connection noted on ultrasound between the distal left common carotid artery and left internal jugular vein is not definitely visualized. No contrast extravasation is noted. Past Medical History Diabetes, liver cirrhosis, hepatitis-C, cancer Past Surgical History Hernia repair Family History: Patient reports no known family medical history. Family History Unobtainable Social History Smoker: Cigarettes, Less Than 1 Pack/Day Alcohol: Denies ETOH Use Drugs: Denies Drug Use Lives In: Home Allergies: Coded Allergies: Morphine (Verified Allergy, Severe, 05/11/24) PER SISTER EBONI HUERTA Home Meds Active Scripts Spironolactone (Aldactone) 25 Mg Tab, 50 MG PO DAILY for 30 Days, #60 TAB Prov:JANETT SILVERMAN RESIDENT 07/09/23 Rifaximin (Xifaxan) 550 Mg Tab, 550 MG PO BID for 30 Days, #60 TAB Prov:JANETT SILVERMAN [facility] [place] 07/09/23 Furosemide (Furosemide) 20 Mg Tab, 60 MG PO BIDD for 30 Days, #180 TAB Prov:JANETT SILVERMAN [facility] [place] 07/09/23 Lactulose (Lactulose) 10 Gm/15 Ml Trista, 30 ML PO Q2HR for 30 Days, #30 ML Prov:JANETT SILVERMAN [facility] [place] 07/09/23 Ergocalciferol (VITAMIN D 73593 UNIT) 50,000 [place], [address] UNIT PO Q7D for 30 Days, #10 CAP Prov:JANETT SILVERMAN [facility] [place] 07/09/23 Insulin Glargine (Lantus) 100 Unit/Ml Inj, 15 UNITS SC BID@1000,2200, #10 INJ Prov:ADEOLA OROPEZA MD 10/03/21 Reported Medications Sodium Bicarbonate (Sodium Bicarbonate) 650 Mg Tab, PO 06/30/23 Pot Phosphate Dibasic & Monoba (Neutra-Phos) 1 Tab Tb, PO 06/30/23 Gabapentin (Gabapentin) 300 Mg Cap, 1 CAP PO Q8H 06/30/23 Morphine Sulfate (Morphine Sulfate) 30 Mg Tab, 1 TAB PO TID 06/30/23 Current Medications Current Medications Medications (Trade) Dose Ordered Sig/Kenisha Route PRN Reason Start Time Stop Time Status Last Admin Vancomycin HCl 0 ml @ 0 mls/hr UD IV 05/24/24 10:00 Octreotide Acetate (SandoSTATIN) 100 mcg TID SUBCUT 05/24/24 14:00 05/25/24 05:54 Dextrose 1,000 ml @ 50 mls/hr Q20H IV 05/24/24 10:00 05/25/24 08:28 Purified Water 200 ml Q6HR GT 05/24/24 18:00 05/25/24 05:47 Review of Systems Unobtainable Vital Signs Vital Signs Date Time Temp Pulse Resp B/P (MAP) Pulse Ox O2 Delivery O2 Flow Rate FiO2 05/25/24 08:21 101/58 05/25/24 08:15 108 20 95 35 05/25/24 06:00 Mechanical Ventilator+ 05/25/24 04:00 98.0 98.0 Physical Exam The patient is well-nourished and well-developed with no distress. The patient is intubated HEENT: Normocephalic, neck supple, no carotid bruits Lungs: Clear to auscultation Cardiovascular: Regular rate and region, S1, S2, no murmurs Abdomen: Soft, nontender, normal bowel sounds MENTAL STATUS: HPI CRANIAL NERVES: Pupils are equal, round and reactive.There are corneal reflexes and doll's eyes phenomenon. No signs of facial weakness. There are gagging or coughing reflexes SENSATION: Responses to touch MOTOR: Normal tone in the upper and lower extremity. Normal muscle bulk. No fasciculations. Movement in the arms and legs noticed. REFLEXES: Deep tendon reflexes are symmetrical. Upgoing toes bilaterally CEREBELLAR/COORDINATION: Deferred GAIT/STATION: deferred. Labs/Diagnostic Data Labs Test 05/25/24 06:42 05/25/24 05:45 05/25/24 03:20 05/24/24 08:21 Range/Units Blood Gas Specimen Type Arterial Blood Gas Sample Site Left radial Blood Gas Patient Temperature 37.0 Arterial Blood Date Drawn [id number] Arterial Blood pH 7.298 L 7.350-7.450 Arterial Blood Partial Pressure CO2 52.9 H 35.0-48.0 mmHg Arterial Blood Partial Pressure O2 79.4 L 83.0-108.0 mmHg Arterial Blood HCO3 25.3 21.0-28.0 mmol/L Arterial Blood Oxygen Saturation 92.5 L 94.0-98.0 % Arterial Blood Base Excess -1.5 -2.0-3.0 mmol/L Arterial Blood Oxyhemoglobin 90.0 L 94.0-98.0 % Arterial Blood Carboxyhemoglobin 2.4 H 0.5-1.5 % Arterial Blood Methemoglobin 0.3 0.0-1.5 % Mike Test Modified Blood Gas Total Hemoglobin 9.80 L 13.5-17.5 g/dL Blood Gas Set Respiration Rate 20.0 Blood Gas Modality Vent - ac Blood Gas Spontaneous Rate 20 FiO2 % 35.0 Blood Gas Tidal Volume 500.0 Blood Gas Inspiratory Pressure 21.0 Blood Gas PEEP or CPAP 5.0 Bl Gas Inspiratory/Expiratory Ratio 1:2.6 Specimen Drawn By kang rt POC Glucose 154 H 70-106 mg/dl White Blood Count 19.5 H 4.4-10.8 10^3/uL Red Blood Count 2.76 L 4.5-5.90 10^6/uL Hemoglobin 8.4 L 13.5-17.5 g/dL Hematocrit 25.9 L 41.0-53.0 % Mean Corpuscular Volume 93.8 80.0-100.0 fL Mean Corpuscular Hemoglobin 30.6 28.0-32.0 pg Mean Corpuscular Hemoglobin Concent 32.6 32.0-36.0 g/dL Red Cell Distribution Width 25.3 H 11.8-14.3 % Platelet Count 100 L 140-450 10^3/uL Mean Platelet Volume 10.4 6.9-10.8 fL Neutrophils (%) (Auto) 86.1 H 37.0-80.0 % Lymphocytes (%) (Auto) 4.0 L 10.0-50.0 % Monocytes (%) (Auto) 6.4 0.0-12.0 % Eosinophils (%) (Auto) 3.4 0.0-7.0 % Basophils (%) (Auto) 0.1 0.0-2.0 % Neutrophils # (Auto) 16.8 H 1.6-8.6 10 ^3/uL Lymphocytes # (Auto) 0.8 0.4-5.4 10 ^3/uL Monocytes # (Auto) 1.2 0-1.3 10 ^3/uL Eosinophils # (Auto) 0.7 0-0.8 10 ^3/uL Basophils # (Auto) 0 0-0.2 10 ^3/uL Nucleated Red Blood Cells 0.2 % Platelet Estimate Decreased Anisocytosis (manual) Slight Ovalocytes Few Schistocytes Few Sodium Level 143 136-145 mmol/L Potassium Level 3.5 3.5-5.1 mmol/L Chloride Level 108 H 98-107 mmol/L Carbon Dioxide Level 27 20-31 mmol/L Anion Gap 8 5-15 Blood Urea Nitrogen 73 H 9-23 mg/dL Creatinine 1.95 H 0.700-1.30 mg/dL Glomerular Filtration Rate Calc 38 >90 mL/min BUN/Creatinine Ratio 37.4 H 10.0-20.0 Serum Glucose 161 H 74-106 mg/dL Calcium Level 10.0 8.7-10.4 mg/dL Phosphorus Level 5.6 H 2.4-5.1 mg/dL Magnesium Level 2.5 1.6-2.6 mg/dL Total Bilirubin 25.2 H 0.2-1.0 mg/dL Aspartate Amino Transferase (AST) 133 H 13-40 U/L Alanine Aminotransferase (ALT) 76 H 7-40 U/L Alkaline Phosphatase 292 H 46-116 U/L Total Protein 5.6 L 5.7-8.2 g/dL Albumin 2.7 L 3.2-4.8 g/dL Random Vancomycin Level 15.9 H 5-10 ug/mL Ammonia 37 H 11-32 umol/L Test 05/23/24 12:30 05/23/24 09:18 05/23/24 03:14 05/22/24 03:23 Range/Units Urine Color Dark-yellow Yellow Urine Clarity Clear Clear Urine pH 5.5 5.0-9.0 Urine Specific [place] 1.010 1.001-1.035 Urine Protein Negative Negative Urine Ketones Negative Negative Urine Blood 2+ H Negative /uL Urine Nitrite Negative Negative Urine Bilirubin 2+ Negative Urine Urobilinogen Normal Negative mg/dL Urine Leukocyte Esterase Negative Negative /uL Urine RBC 26 0 - 3 /hpf Urine Microscopic WBC 2 0-3 /HPF Urine Squamous Epithelial Cells Few <5 /hpf Urine Bacteria Few H None Seen /hpf Urine Hyaline Casts Few 0 - 2 /lpf Urine Yeast (Budding) Occasional None Seen /hpf Urine Creatinine 26.09 L 30.0-125.0 mg/dL Urine Protein/Creatinine Ratio 0.94 Urine Sodium 54 40-220 mmol/L Urine Glucose Normal Normal mg/dL Urine Total Protein 24.5 H 1-14 mg/dL Lactic Acid Level 1.3 0.4-2.0 mmol/L Large Platelets Few Poikilocytosis (manual) Slight [place] Cells Moderate Hypochromasia (manual) Slight Tear Drop Cells Few Test 05/21/24 03:24 05/20/24 03:20 05/19/24 03:20 05/15/24 09:52 Range/Units Triglycerides Level 166 H < 150 mg/dL Target Cells Few Stomatocytes Few Prothrombin Time 17.2 H 9.3-11.8 sec Prothrombin Time INR 1.71 H 0.9-1.15 Differential Total Cells Counted 100.0 100 Neutrophils % (Manual) 88 H 37.0-80.0 Band Neutrophils % (Manual) 5 Lymphocytes % (Manual) 2 L 10.0-50.0 Monocytes % (Manual) 3 0-12 Eosinophils % (Manual) 0 0-7 Basophils % (Manual) 0 0.0-2.0 Metamyelocytes % (manual) 2 Myelocytes % (Manual) 0 Promyelocytes % (Manual) 0 Blast Cells % (Manual) 0 Reactive Lymphocytes 0 Blood Gas Critical Value Read Back Yes Blood Gas Notified Whom breanna Fragoso md Blood Gas Notified Time [id number] Blood Gas Notified By Sav lundberg ecologist Test 05/15/24 03:33 05/14/24 00:18 05/13/24 05:00 05/11/24 03:10 Range/Units Macrocytosis Slight Troponin I High Sensitivity 22 </=54 ng/L Clumped Platelets None B-Type Natriuretic Peptide 360.94 0-100 pg/mL Test 05/09/24 16:25 05/08/24 08:45 05/08/24 08:27 05/07/24 01:30 Range/Units Stool Occult Blood Positive Negative Stool Occult Blood Sample #3 Negative Thyroid Stimulating Hormone (TSH) 0.59 0.55-4.78 uIU/mL Blood Gas Liter Flow 40.00 Urine Mucus Few None Seen Urine Opiates Screen Pos NEGATIVE Urine Fentanyl Screen Neg NEGATIVE Urine Barbiturates Screen Neg NEGATIVE Urine Phencyclidine Screen Neg NEGATIVE Urine Amphetamines Screen Pos NEGATIVE Urine Benzodiazepines Screen Neg NEGATIVE Urine Cocaine Screen Neg NEGATIVE Urine Cannabinoids Screen Neg NEGATIVE Test 05/06/24 17:20 Range/Units Plasma/Serum Blood Alcohol < 3.0 <10 mg/dL Microbiology Date/Time Source Procedure Growth Status 05/23/24 16:00 Sputum Gram Stain - Final Resulted 05/23/24 16:00 Sputum Respiratory Culture - Preliminary Resulted 05/23/24 13:22 Blood Blood Culture - Preliminary Resulted 05/23/24 12:30 Urine - [place] Port Urine Culture - Preliminary Resulted 05/13/24 14:00 Nose MRSA Screen - Final Complete Assessment Altered mental status Metabolic encephalopathy Hepatic encephalopathy Hypoxic encephalopathy Sepsis, septic shock Liver failure Liver cirrhosis Coagulopathy Acute kidney failure Urinary tract infection Pneumonia Plan/Recommendation Monitoring Supportive treatment ICU care EEG CT head Stabilize vitals/pressor drip Respiratory support/vent management Oxygen IV antibiotics Thiamine supplementation GI prophylaxis/Protonix Pulmonology on case Nephrology on case GI on case More recommendation per clinical course Prognosis: Guarded This medical document was created using an electronic medical record system with [employer] dictation system. Although this document has been carefully reviewed, there may still be some phonetic and typographical errors. These areas are purely typographical due to imperfections of the software programs, and do not reflect any compromise in the patient's medical care. Plan discussed with: GETACHEW Rodriguez MD May 25, 2024 09:33
[2024-05-25] MEDS: VANCOMYCIN 500mg/100mL 100 ML IV ONE (11:28)
--- NOTE | 2024-05-25 11:33 | DVH ---
Procedure: CT CHEST WITHOUT CONTRAST Reason for study/Clinical History: left lung opacits , rt lung infiltrate, pneumonia/effusion Comparison Study: None available at time of dictation. Exam Date: 05/25/2024 10:52 AM TECHNIQUE: Multidetector CT of the chest was performed from the lung apices to the upper abdomen with out the use of intravenous contract. Axial, coronal and sagittal multiplanar reformats were performed . Radiation Dose Information: CT Dose: CTDI volume is 58.58 mGy. Dose-length product is 1154.44 mGy*cm The dose indicators for CT are the volume Computed Tomography (CT) Dose Index (CTDIvol) and the Dose Length Product (DLP), and are measured in units of mGy and mGy-cm, respectively. These indicators are not patient dose, but values generated from the CT scanner acquisition factors. The report includes radiation exposure data for exposures received during this examination. FINDINGS: Lower neck: Normal thyroid. Endotracheal tube terminates above the jim. Lungs: Bibasilar consolidations may reflect pneumonia or aspiration. Heart/Vascular Structures: Normal heart size. No pericardial effusion. Lymph Nodes: No adenopathy Pleura: Small bilateral pleural effusions Musculoskeletal: No acute osseous abnormality. Soft tissues: Normal. Upper abdomen: Cirrhotic liver with upper abdominal ascites. Tips stent is partially visualized IMPRESSION: 1. Bibasilar consolidations may reflect pneumonia or aspiration. 2. Small bilateral pleural effusions Radiation optimization: All CT scans at this facility use at least one of these dose optimization palomo hniques: automated exposure control mA and/or kV adjustment per patient size (includes targeted exam s where dose is matched to clinical indication) or iterative reconstruction.
--- NOTE | 2024-05-25 11:44 | DVH ---
EXAM: CT HEAD WITHOUT CONTRAST HISTORY: ALOC COMPARISON: CT HEAD WITHOUT CONTRAST on DOS: 05/07/24, CT HEAD WITHOUT CONTRAST on DOS: 10/06/23 TECHNIQUE: Axial images of the head were obtained and reformatted in coronal and sagittal planes. All CT scans at this medical facility are performed using dose modulation techniques as appropriate t o a performed exam including the following: Automated exposure control was utilized; adjustment of th e MA and/or KV according to patient size; and use of iterative reconstruction technique. CT Dose: CTDI volume is 58.58 mGy. Dose-length product is 1154.44 mGy*cm FINDINGS: There is no evidence of acute intracranial hemorrhage, mass, mass effect midline shift. There is no h ydrocephalus or extra-axial fluid collection. Daugherty-white matter differentiation is maintained. The visualized paranasal sinuses and mastoid air cells are clear. The calvarium is intact. IMPRESSION: 1. No acute intracranial process. HS:Y
--- NOTE | 2024-05-25 12:06 | DVHPN2 ---
Progress Note Date Seen: May 25, 2024 Medical Necessity Reason Pt with a Central, PICC or Fol: Yes The following are medically ne: PICC Line, Mcduffie Catheter Reason for mcduffie catheter: Strict I&O Subjective Review of Systems: RESPIRATORY:Abnormal Other Systems: Patient seen and examined by myself today in follow-up, patient remained intubated on ventilator Objective vital signs Vital Sign Date Time Temp Pulse Resp B/P (MAP) Pulse Ox O2 Delivery O2 Flow Rate FiO2 05/25/24 11:15 110 21 106/60 (75) 94 05/25/24 08:15 35 05/25/24 06:00 Mechanical Ventilator+ 05/25/24 04:00 98.0 98.0 Total Intake and Output 05/24/24 05/24/24 05/25/24 15:00 23:00 07:00 Intake Total 908.877 ml 1791.214 ml 1462.191 ml Output Total 1050 ml 1500 ml Balance 908.877 ml 741.214 ml -37.809 ml medications Current Medications Medications Dose Ordered Sig/Kenisha Route Start Time Stop Time Status Last Admin Dose Admin Sodium Chloride 10 ml Q8HR IV 05/07/24 06:00 05/25/24 05:54 10 ML Ondansetron HCl 4 mg Q4HP PRN IV 05/06/24 22:15 Pantoprazole Sodium 40 mg BID IV 05/08/24 22:00 05/25/24 09:43 40 MG Thiamine HCl 100 mg DAILY IV 05/10/24 10:00 05/25/24 09:36 100 MG Flecainide Acetate 100 mg Q12HR PO 05/09/24 22:00 05/25/24 10:16 100 MG Folic Acid 1 mg DAILY PO 05/11/24 10:00 05/25/24 09:36 1 MG Diagnostic Test (Pha) 1 strip Q6HR 05/10/24 18:00 05/25/24 05:47 1 STRIP Insulin Human Regular FOLLOW SLIDING SCALE Q6HR SC 05/10/24 18:00 05/25/24 05:52 2 UNITS Dextrose 50 ml UD IV 05/10/24 17:15 Sodium Chloride 10 ml QSHIFT@10,22 IV 05/13/24 22:00 05/25/24 09:43 10 ML Fentanyl Citrate 250 ml @ 2.5 mls/hr Q24H IV 05/14/24 04:45 05/25/24 07:03 35 MLS/HR Albuterol 2.5 mg Q4HR NEB 05/15/24 14:00 05/25/24 10:40 2.5 MG Ipratropium [place] 0.5 mg Q4HR NEB 05/15/24 14:00 05/25/24 10:40 0.5 MG Phenylephrine HCl 80 mg/Sodium Chloride 250 ml @ 7.5 mls/hr Q24H IV 05/16/24 11:15 Norepinephrine Bitartrate 32 mg/ Sodium Chloride 250 ml @ 0.938 mls/ hr Q24H IV 05/16/24 11:15 05/25/24 03:47 10.313 MLS/HR Ursodiol 300 mg BID PO 05/17/24 10:00 05/25/24 09:41 300 MG Dexmedetomidine HCl 400 mcg/ Dextrose 100 ml @ 5.96 mls/hr [id number] IV 05/18/24 10:15 Enteral Nutritional Formula 1,000 ml 30ML/HR GT 05/22/24 06:30 05/22/24 14:59 1,000 ML Lactulose 30 ml Q12HR NG 05/23/24 22:00 05/25/24 09:36 30 ML Nystatin 1 applic BID TOP 05/23/24 22:00 05/25/24 09:42 1 APPLIC Ceftazidime Sodium 2.5 gm/ Dextrose 100 ml @ 50 mls/hr Q8H IV 05/23/24 18:00 05/25/24 11:29 50 MLS/HR Metoclopramide HCl 5 mg BID IV 05/23/24 22:00 05/25/24 09:43 5 MG Midazolam HCl 50 ml @ 1 mls/hr Q24H IV 05/24/24 03:00 05/25/24 08:21 5 MLS/HR Vancomycin HCl 0 ml @ 0 mls/hr UD IV 05/24/24 10:00 Octreotide Acetate 100 mcg TID SUBCUT 05/24/24 14:00 05/25/24 05:54 100 MCG Dextrose 1,000 ml @ 50 mls/hr Q20H IV 05/24/24 10:00 05/25/24 08:28 50 MLS/HR Purified Water 200 ml Q6HR GT 05/24/24 18:00 05/25/24 05:47 200 ML Examination: LUNGS:Normal, CVS:Normal, MSK:Normal laboratory and microbiology Laboratory Tests 05/25/24 03:20 Test 05/25/24 03:20 Range/Units Serum Glucose 161 H 74-106 mg/dL Microbiology Date/Time Source Procedure Growth Status 05/23/24 16:00 Sputum Gram Stain - Final Resulted 05/23/24 16:00 Sputum Respiratory Culture - Preliminary Resulted 05/23/24 13:22 Blood Blood Culture - Preliminary Resulted 05/23/24 12:30 Urine - [place] Urine Culture - Preliminary Resulted 05/13/24 14:00 Nose MRSA Screen - Final Complete Problem List/Assessment/Plan Problem List/Assessment/Plan Acute kidney injury superimposed Chronic Kidney Disease secondary to hemodynamically mediated ATN, FeNa > 2% Acute respiratory failure, intubated on ventilator Aspiration pneumonia Septic shock Hypernatremia due to insensible water loss Hepatic encephalopathy Decompensated liver cirrhosis Acute methamphetamine intoxication heavy alcoholism Hepatitis-C Multidrug resistant ESBL urinary tract infection Recommendations Kidney function continues to improve Increased urine output Hypernatremia appropriately improving Mcduffie catheter Strict I&Os I agree with hypotonic IVF hydration IV Levophed for blood pressure support Octreotide Free water IV antibiotics We will continue to follow Plan discussed with: Other (Nurse) Dietary Evaluation Review Comments: 1. Per RN, pt is able to drink liquid but unable to manage jello. Will Downgrade his CCHO-60 diet to pureed texture. 2. offer Glucern BID if PO is still poor 3. elevated BUN, f/u and reassess after pt has a GI and nephrology consult. 4. consider clinimix as a form of protein supplementation as pt has very low albumin. Expected Outcomes/Goals: Gradual wt loss, better DM control. MELISA MORGAN MD May 25, 2024 12:06
[2024-05-25] MEDS: URSODIOL 300 MG CAP PO SCH (14:59)
[2024-05-25] MEDS: DEXMEDETOMIDINE HCL IN D5W 100 ML IV SCH (15:15)
[2024-05-25] MEDS: MICAFUNGIN SODIUM 100 MG in SODIUM CHL 0.9% 100 ML IV ONE (18:09)
--- NOTE | 2024-05-25 20:38 | DVHPNRES ---
Progress Note Date Seen: May 25, 2024 Resident Creating Document: TIERRA GALEAS RESIDENT Medical Necessity Reason Pt with a Central, PICC or Fol: Yes The following are medically ne: PICC Line, Mcduffie Catheter Reason for mcduffie catheter: Strict I&O Subjective Review of Systems HPI Patient is a 63-year-old male with a past medical history of liver cirrhosis likely secondary to hep C, liver shunt, CHF, diabetes mellitus, prostate cancer, history of lower GI bleed status post blood transfusion was brought to the ER with a chief complaint of drug overdose. Information gathered from reviewing the chart and talking with the patient's family, as per he was found gargling and unresponsive in a car, possible overdose of morphine following which EMS were called. EMS gave the patient Narcan and he woke up but was unable to recall what happened. Urine drug screen in the ER was positive for amphetamine and opiates. Was obtunded and was on oxygen support. While in the ER patient went into atrial fibrillation rapid ventricular response following which she was given diltiazem. Patient while in the hospital had altered mental status, sepsis likely due to UTI with the underlying liver cirrhosis had to be put on mechanical ventilation and put on vasopressor support. Patient was transferred to the ICU for further care. In ICU patient was treated with meropenem for Klebsiella pneumoniae ESBL multidrug resistant and also coverage for suspected aspiration pneumonia in the right lower lung, diuresis for with the Lasix, rifaximin and lactulose for hepatic encephalopathy, Patient's blood cultures were done twice and did not show any growth after 5 days, respiratory sputum cultures did not show any growth. Patient's mental status remained obtunded even after turning of the sedation, had vasopressor requirements therefore he could not be extubated. Past medical history: Liver cirrhosis likely secondary to hep C, liver shunt, CHF, type 2 diabetes mellitus, prostate cancer status post radiotherapy, history of lower GI bleed s/p blood transfusions Past surgical history: Hernia repair, tips, live knee surgery Social history: Patient lives with the , history of smoking less than 1 pack per day, reported alcohol and illicit drug usage Home medications: Lasix 20 mg b.i.d., gabapentin 300 mg q.8 hours, insulin glargine 15 units SC b.i.d., spironolactone 50 mg daily Review of systems 05/25/2024 Patient seen and examined at the bedside. - Patient fentanyl drip, midazolam titred down . Norepinephrine was weaned off from 22->18 mcg/min maintaining a MAP> 65. Patient was in sinus tachycardia with a heart rate ranging 100-115/min. - current RASS -3 - patient did not have any fever, WBC count trending down. Repeat blood cultures pending - over the last 24 hours patient had a urine output of 2250ml with a positive fluid balance of 1600 mL. Patient had a total bowel movement of 100mL in the flexiseal over the last 24 hours, no blood seen. Objective vital signs Vital Sign Date Time Temp Pulse Resp B/P (MAP) Pulse Ox O2 Delivery O2 Flow Rate FiO2 05/25/24 20:02 111 20 95/50 (65) 95 35 05/25/24 18:20 Mechanical Ventilator+ 05/25/24 16:00 97.8 97.8 Total Intake and Output 05/24/24 05/24/24 05/25/24 15:00 23:00 07:00 Intake Total 908.877 ml 1791.214 ml 1517.191 ml Output Total 1050 ml 1500 ml Balance 908.877 ml 741.214 ml 17.191 ml medications Current Medications Medications Dose Ordered Sig/Kenisha Route Start Time Stop Time Status Last Admin Dose Admin Sodium Chloride 10 ml Q8HR IV 05/07/24 06:00 05/25/24 14:59 10 ML Ondansetron HCl 4 mg Q4HP PRN IV 05/06/24 22:15 Pantoprazole Sodium 40 mg BID IV 05/08/24 22:00 05/25/24 09:43 40 MG Thiamine HCl 100 mg DAILY IV 05/10/24 10:00 05/25/24 09:36 100 MG Flecainide Acetate 100 mg Q12HR PO 05/09/24 22:00 05/25/24 10:16 100 MG Folic Acid 1 mg DAILY PO 05/11/24 10:00 05/25/24 09:36 1 MG Diagnostic Test (Pha) 1 strip Q6HR 05/10/24 18:00 05/25/24 18:10 1 STRIP Insulin Human Regular FOLLOW SLIDING SCALE Q6HR SC 05/10/24 18:00 05/25/24 12:24 2 UNITS Dextrose 50 ml UD IV 05/10/24 17:15 Sodium Chloride 10 ml QSHIFT@10,22 IV 05/13/24 22:00 05/25/24 09:43 10 ML Fentanyl Citrate 250 ml @ 2.5 mls/hr Q24H IV 05/14/24 04:45 05/25/24 15:02 35 MLS/HR Albuterol 2.5 mg Q4HR NEB 05/15/24 14:00 05/25/24 18:41 2.5 MG Ipratropium [place] 0.5 mg Q4HR NEB 05/15/24 14:00 05/25/24 18:41 0.5 MG Phenylephrine HCl 80 mg/Sodium Chloride 250 ml @ 7.5 mls/hr Q24H IV 05/16/24 11:15 Norepinephrine Bitartrate 32 mg/ Sodium Chloride 250 ml @ 0.938 mls/ hr Q24H IV 05/16/24 11:15 05/25/24 03:47 10.313 MLS/HR Enteral Nutritional Formula 1,000 ml 30ML/HR GT 05/22/24 06:30 05/22/24 14:59 1,000 ML Nystatin 1 applic BID TOP 05/23/24 22:00 05/25/24 09:42 1 APPLIC Ceftazidime Sodium 2.5 gm/ Dextrose 100 ml @ 50 mls/hr Q8H IV 05/23/24 18:00 05/25/24 18:10 50 MLS/HR Metoclopramide HCl 5 mg BID IV 05/23/24 22:00 05/25/24 09:43 5 MG Midazolam HCl 50 ml @ 1 mls/hr Q24H IV 05/24/24 03:00 05/25/24 08:21 5 MLS/HR Vancomycin HCl 0 ml @ 0 mls/hr UD IV 05/24/24 10:00 Octreotide Acetate 100 mcg TID SUBCUT 05/24/24 14:00 05/25/24 14:17 100 MCG Purified Water 200 ml Q6HR GT 05/24/24 18:00 05/25/24 18:00 200 ML Ursodiol 300 mg TID PO 05/25/24 14:00 05/25/24 14:59 300 MG Micafungin Sodium 100 mg/Sodium Chloride 100 ml @ 100 mls/hr DAILY IV 05/26/24 10:00 Lactulose 30 ml Q8HR NG 05/25/24 22:00 Methylprednisolone Sodium Succinate 20 mg BID IV 05/25/24 22:00 Examination Patient is ventilated and on sedation with RASS -3 Gen - conjunctival pallor present , scleral icterus present, no cyanosis, no clubbing, no LAD, bilateral 2+ pitting pedal edema Skin - Patients skin is warm and dry, multiple spider angiomata skin on the chest, erythematous rash seen in the groin on both the sides HEENT - normocephalic, atraumatic, moist mucous membranes. Neck - no LAD, no JV distention Pulmonary - decreased breath sounds in the right lower lung, left basilar crackles, no wheezing, no stridor. cardiovascular - variable S1,S2 heard, no added sounds, no murmurs heard. capillary refill normal <2 secs. GI - soft abdomen. no hepatospleenomegaly. Bowel Sounds normoactive Neurological - patient was intubated with a RASS -3 on fentanyl, plantar reflex downgoing, gag reflex present, pupils equal and reactive laboratory and microbiology Laboratory Tests 05/25/24 03:20 Test 05/25/24 03:20 Range/Units Serum Glucose 161 H 74-106 mg/dL Microbiology Date/Time Source Procedure Growth Status 05/23/24 16:00 Sputum Gram Stain - Final Resulted 05/23/24 16:00 Sputum Respiratory Culture - Preliminary Resulted 05/23/24 13:22 Blood Blood Culture - Preliminary Resulted 05/23/24 12:30 Urine - [place] Urine Culture - Final Complete 05/13/24 14:00 Nose MRSA Screen - Final Complete Problem List/Assessment/Plan Problem List/Assessment/Plan Neurological # Acute metabolic encephalopathy likely hepatic encephalopathy/toxic drug- induced - head CT 05/07/24 showed no acute intracranial hemorrhage, midline shift or mass effect - urine drug screen at admission positive for opiates and amphetamines - ammonia 37, patient on lactulose - RASS -3, on fentanyl and midazolam drip Respiratory # Acute hypoxemic/hypercarbic respiratory failure # bilateral lower lobe pneumonia likely due to Gram+/-bacteria # bilateral pleural effusion # pulmonary edema with right-sided pleural effusion - on mechanical ventilation with a FiO2 30%, PEEP 5, respiratory rate 20, tidal volume 500ml, PO2/FiO2 ratio- 256 - ABG reviewed today was normal, pH 7.38 with a pCO2 41.3 and HC03 23.9 - chest x-ray shows bilateral pulmonary edema with blunting of the right CP angle - was off sedation since 05/19. patient had ventilator dyssynchrony and episodes of agitation following which Fentanyl and midazolam drip were started - antibiotics changed from meropenem to ceftazidime-avibactam 2.5 mg q.8 hours, vancomycin added as blood culture showed growth of positive cocci in clusters - albuterol and ipratropium med nebs q.4 hours - patient has vasopressor requirement and delirious and is currently not eligible for a spontaneous breathing trial - sputum cultures showing the growth of yeast, started on micafungin Cardiovascular # Septic shock likely d/t UTI vs pneumonia # new onset atrial fibrillation with RVR # NSTEMI type 2 likely due to demand supply mismatch - Echo shows LVEF 60% with concentric LVH, right atrial enlargement, right ventricular enlargement - on vasopressor support with norepinephrine, we will try to wean off norepinephrine, maintaining MAP > 65mmhg - flecainide 100 mg b.i.d. for AFib - [id number] Vasc- 1, has-bled 2 , currently anticoagulation is held, with the patient SOB positive and history of GI bleeding Gastrointestinal # decompensated liver cirrhosis # history of hepatitis-C infection # history of heavy alcohol use # ?SBP # ascites # hepatic encephalopathy - stool occult blood positive 05/09 - noted increase in bilirubin, AST ALT and ALP since yesterday - low albumin, elevated PT INR, thrombocytopenia with a platelets at 103, - lactulose 30 mL q.6h - currently on tube feeding at 30 mL/hour - Protonix 40 mg IV b.i.d. - Ursodiol 300 mg b.i.d. - started on methylprednisolone 20 mg b.i.d. for suspected alcoholic liver cirrhosis Nephrology # acute kidney injury likely hemodynamically mediated due to shock,+ contrast likely ATN # hypernatremia - BUN and creatinine, trending down - urine output over 24 hours at 2500 mL - FENa calculated today at 3% - free water deficit 3.2 L - free water 200 mL via NG tube q.6 hours - IV D5W discontinued - pharmacy conveyed that the vancomycin trough to be kept below 15 Infectious disease # septic shock likely due to UTI versus pneumonia versus ?SBP # candidal infection in the groin - initial urine culture showed growth of multidrug resistant Klebsiella ESBL, on meropenem - initial blood cultures, respiratory sputum cultures negative - 05/23 WBC count increased from 9300 to 24607 with 91% neutrophils, - repeat blood cultures 1 bottle showed growth of Gram-positive cocci in clusters, which could be contaminant, with a blood cultures repeated - sputum cultures preliminary show growth of young colonies - ceftazidime-avibactam 2.5 mg q.8 hours and vancomycin per pharmacy with trough to be maintained less than 15 - nystatin powder q.12h for [facility] # Insulin dependent Diabetes mellitus with hyperglycemia - On ISS - goal blood glucose 140-180 mg/dL Polysubstance Use Acute opiate/methamphetamine intoxication DVT prophylaxis: Sequential compression device PUD prophylaxis: Protonix PICC line in the left forearm- placed on 05/13/2024 Mcduffie's catheter- placed on 05/07/2024 Endotracheal intubation- done on 05/13/2024 Goals of care discussed with the patient's Lorna at bedside for over 25 minutes. prognosis guarded Code status- Full code Critical care time spent: 81 mins Plan discussed with Dr. Amaro Plan discussed with: Spouse (Lorna), Other (RN ( Serene )) My Orders My Orders Orders - TIERRA GALEAS RESIDENT Procedure Category Date Status Time Lactulose Oral PHA 05/25/24 In Process 22:00 Methylprednisolone PHA 05/25/24 In Process Sod Succ (Solu Medrol 22:00 Complete Blood Count LAB 05/26/24 Verified 04:00 Comprehensive LAB 05/26/24 Verified Metabolic Panel 04:00 Abg W/ Co-Ox RT 05/26/24 Logged 04:00 Chest Xray 1 View XY 05/26/24 Logged 04:00 Dietary Evaluation Review Comments: 1. Per RN, pt is able to drink liquid but unable to manage jello. Will Downgrade his CCHO-60 diet to pureed texture. 2. offer Glucern BID if PO is still poor 3. elevated BUN, f/u and reassess after pt has a GI and nephrology consult. 4. consider clinimix as a form of protein supplementation as pt has very low albumin. Expected Outcomes/Goals: Gradual wt loss, better DM control. Date of Service: May 25, 2024 Billing Provider: JUVENAL AMARO MD Common Visit Codes: 15216-[id number] CARE 30-74 MIN, 59125-HWOOMMHM CARE-EACH +30MIN TIERRA GALEAS May 25, 2024 20:38 JUVENAL AMARO MD May 26, 2024 14:20
[2024-05-25] MEDS: LACTULOSE 20Gm/30ML SOLN NG SCH ×2 (22:03→23:48)
[2024-05-25] MEDS: methylPREDNISolone SOD SUCC 40 MG/ML VL IV SCH (22:17)
--- NOTE | 2024-05-25 23:05 | DVHPN2 ---
Progress Note - Dictate Date Seen: May 25, 2024 Medical Necessity Reason Pt with a Central, PICC or Fol: Yes The following are medically ne: PICC Line, Mcduffie Catheter Reason for mcduffie catheter: Strict I&O Subjective Patient is still not waking up, he is off sedation, intubated on ventilator Patient is having loose stools with the lactulose supplementation and has a flexi Seal in place His white count has trended down to 20 K I decrease the lactulose and IV Reglan Patient has also been started on IV Clinimix at 42 mL/hour Jaundice is worsening and patient has evidence of acute on chronic renal insufficiency vital signs Vital Sign Date Time Temp Pulse Resp B/P (MAP) Pulse Ox O2 Delivery O2 Flow Rate FiO2 05/25/24 22:14 111 20 98/53 (68) 94 35 05/25/24 22:00 Mechanical Ventilator+ 05/25/24 16:00 97.8 97.8 Total Intake and Output 05/24/24 05/24/24 05/25/24 15:00 23:00 07:00 Intake Total 908.877 ml 1791.214 ml 1517.191 ml Output Total 1050 ml 1500 ml Balance 908.877 ml 741.214 ml 17.191 ml medications Current Medications Medications Dose Ordered Sig/Kenisha Route Start Time Stop Time Status Last Admin Dose Admin Sodium Chloride 10 ml Q8HR IV 05/07/24 06:00 05/25/24 22:15 10 ML Ondansetron HCl 4 mg Q4HP PRN IV 05/06/24 22:15 Pantoprazole Sodium 40 mg BID IV 05/08/24 22:00 05/25/24 22:03 40 MG Thiamine HCl 100 mg DAILY IV 05/10/24 10:00 05/25/24 09:36 100 MG Flecainide Acetate 100 mg Q12HR PO 05/09/24 22:00 05/25/24 22:04 100 MG Folic Acid 1 mg DAILY PO 05/11/24 10:00 05/25/24 09:36 1 MG Diagnostic Test (Pha) 1 strip Q6HR 05/10/24 18:00 05/25/24 18:10 1 STRIP Insulin Human Regular FOLLOW SLIDING SCALE Q6HR SC 05/10/24 18:00 05/25/24 12:24 2 UNITS Dextrose 50 ml UD IV 05/10/24 17:15 Sodium Chloride 10 ml QSHIFT@10,22 IV 05/13/24 22:00 05/25/24 09:43 10 ML Fentanyl Citrate 250 ml @ 2.5 mls/hr Q24H IV 05/14/24 04:45 05/25/24 22:05 35 MLS/HR Albuterol 2.5 mg Q4HR NEB 05/15/24 14:00 05/25/24 22:14 2.5 MG Ipratropium [place] 0.5 mg Q4HR NEB 05/15/24 14:00 05/25/24 22:14 0.5 MG Phenylephrine HCl 80 mg/Sodium Chloride 250 ml @ 7.5 mls/hr Q24H IV 05/16/24 11:15 Norepinephrine Bitartrate 32 mg/ Sodium Chloride 250 ml @ 0.938 mls/ hr Q24H IV 05/16/24 11:15 05/25/24 03:47 10.313 MLS/HR Enteral Nutritional Formula 1,000 ml 30ML/HR GT 05/22/24 06:30 05/22/24 14:59 1,000 ML Nystatin 1 applic BID TOP 05/23/24 22:00 05/25/24 09:42 1 APPLIC Ceftazidime Sodium 2.5 gm/ Dextrose 100 ml @ 50 mls/hr Q8H IV 05/23/24 18:00 05/25/24 18:10 50 MLS/HR Metoclopramide HCl 5 mg BID IV 05/23/24 22:00 05/25/24 22:04 5 MG Midazolam HCl 50 ml @ 1 mls/hr Q24H IV 05/24/24 03:00 05/25/24 08:21 5 MLS/HR Vancomycin HCl 0 ml @ 0 mls/hr UD IV 05/24/24 10:00 Octreotide Acetate 100 mcg TID SUBCUT 05/24/24 14:00 05/25/24 22:03 100 MCG Purified Water 200 ml Q6HR GT 05/24/24 18:00 05/25/24 18:00 200 ML Ursodiol 300 mg TID PO 05/25/24 14:00 05/25/24 22:03 300 MG Micafungin Sodium 100 mg/Sodium Chloride 100 ml @ 100 mls/hr DAILY IV 05/26/24 10:00 Lactulose 30 ml Q8HR NG 05/25/24 22:00 05/25/24 22:03 30 ML Methylprednisolone Sodium Succinate 20 mg BID IV 05/25/24 22:00 05/25/24 22:17 20 MG objective General: Intubated sedated HEENT: NC/AT EOMI dry mucous membranes Heart: Tachycardic regular rhythm Abdomen: Soft nontender nondistended Extremity: No clubbing cyanosis or edema laboratory and microbiology Laboratory Tests 05/25/24 03:20 Test 05/25/24 03:20 Range/Units Serum Glucose 161 H 74-106 mg/dL Problems(with codes): (1) Altered mental status (2) Hepatic encephalopathy (3) Generalized weakness (4) Cirrhosis (5) Liver failure (6) Hepatitis C (7) Ascites (8) MRSA (methicillin resistant Staphylococcus aureus) septicemia (9) Aspiration pneumonia (10) Jaundice Prognosis Plan Patient has worsening jaundice We will discuss with warehouse material handler if the patient can be taken off the flecainide Prior to that patient was taken off the amiodarone Increase ursodiol to 300 mg p.o. three times a day Consider resuming his steroids methylprednisolone 20 mg IV q.12 hours Monitor labs Prognosis guarded Dietary Evaluation Review Comments: 1. Per RN, pt is able to drink liquid but unable to manage jello. Will Downgrade his CCHO-60 diet to pureed texture. 2. offer Glucern BID if PO is still poor 3. elevated BUN, f/u and reassess after pt has a GI and nephrology consult. 4. consider clinimix as a form of protein supplementation as pt has very low albumin. Expected Outcomes/Goals: Gradual wt loss, better DM control. Plan discussed with: Other (ICU Nurse and Dr Cortez) PAULINA BAINS MD May 25, 2024 23:05
[2024-05-26] VITALS (108 sets, daily range): BP systolic 90–121; BP diastolic 50–80; PULSE 109–114; RESP 15–22; TEMP 97.3–98.4; O2SAT 90–99
--- NOTE | 2024-05-26 01:13 | DVHEEG2 ---
Neurology EEG Procedural Note Procedural Note EXAM DATE: 05/25/24 REFERRING DOCTOR: Dr. Blackwood TECHNIQUE: Eighteen channels of EEG, 2 channels of EOG, and 1 channel of EKG were recorded using the International 10/20 system. CLINICAL DATA: The patient was referred for an EEG evaluation for the evidence of seizure disorder. MEDICATIONS: See chart BACKGROUND ACTIVITY: There was significant amount of electrode artifacts in the recording. The record showed low-amplitude mixed delta theta activity over both hemispheres, that was slightly reactive to external stimuli ACTIVATION: Hyperventilation: Not done Photic Stimulation: Not done Sleep: Nonresponsiveness IMPRESSION: This is a remarkably abnormal EEG. This EEG seen in severe cerebral dysfunction due to metabolic/hypoxic encephalopathy or medication effect, please correlate clinically. The EKG channel showed a regular heart rate of 108 per minute [place] [address] GETACHEW BLACKWOOD MD May 26, 2024 01:13
[2024-05-26 04:00] LABS: Basophils # (auto) 0.1 10 ^3/uL (0-0.2); Basophils % (auto) 0.3 % (0.0-2.0); Eosinophils # (auto) 0.2 10 ^3/uL (0-0.8); Eosinophils % (auto) 1.1 % (0.0-7.0); Hematocrit 27.4 % (41.0-53.0); Hemoglobin 8.8 g/dL (13.5-17.5); Lymphocytes # (auto) 0.3 10 ^3/uL (0.4-5.4); Lymphocytes % (auto) 1.4 % (10.0-50.0); Mean Corpuscular Hemoglobin 30.4 pg (28.0-32.0); Mean Corpuscular Hgb Conc. 32.2 g/dL (32.0-36.0); Mean Corpuscular Volume 94.3 fL (80.0-100.0); Monocytes # (auto) 0.6 10 ^3/uL (0-1.3); Monocytes % (auto) 3.2 % (0.0-12.0); Neutrophils # (auto) 18.3 10 ^3/uL (1.6-8.6); Platelet Count (auto) 110 10^3/uL (140-450); Red Cell Distribution Width 24.8 % (11.8-14.3); White Blood Cell 19.4 10^3/uL (4.4-10.8)
[2024-05-26 04:33] LABS: Anion Gap 8 (5-15); Calcium 10.2 mg/dL (8.7-10.4); Carbon Dioxide 26 mmol/L (20-31); Sodium 142 mmol/L (136-145)
[2024-05-26 04:34] LABS: Albumin 2.7 g/dL (3.2-4.8); Alkaline Phosphatase 311 U/L (46-116); Bilirubin, Total 25.6 mg/dL (0.2-1.0); Chloride 108 mmol/L (98-107); Glucose 181 mg/dL (74-106); Total Protein 5.7 g/dL (5.7-8.2)
[2024-05-26 04:35] LABS: Alanine Aminotransferase 82 U/L (7-40); Aspartate Aminotransferase 131 U/L (13-40); Blood Urea Nitrogen 64 mg/dL (9-23)
[2024-05-26 05:08] LABS: BUN/Creatinine Ratio 35.4 (10.0-20.0)
[2024-05-26 05:22] LABS: Anisocytosis Slight; Ovalocytes FEW
[2024-05-26 05:23] LABS: Platelet Estimate Decreased
--- NOTE | 2024-05-26 05:43 | DVH ---
EXAM: XR Chest, 1 View CLINICAL INDICATION: on mechanical ventilation TECHNIQUE: Frontal view of the chest. COMPARISON: XY CHEST XRAY 1 VIEW on DOS: 05/24/24, XY CHEST PORTABLE on DOS: 05/23/24, XY CHEST PORTABL E on DOS: 05/22/24, XY CHEST PORTABLE on DOS: 05/21/24, XY CHEST PORTABLE on DOS: 05/20/24 FINDINGS: LUNGS AND PLEURAL SPACES: Pulmonary congestion and edema. Pneumonia cannot be excluded. No pneumot horax. HEART: Unremarkable. No cardiomegaly. MEDIASTINUM: Unremarkable. Normal mediastinal contour. BONES/JOINTS: Unremarkable. No acute fracture. TUBES, LINES AND DEVICES: Right peripherally inserted central catheter (PICC) tip in the superior v tere cava. The endotracheal tube (ETT) is in satisfactory position. Enteric tube tip cannot be seen but is below the diaphragm. OTHER FINDINGS: . . IMPRESSION: Pulmonary congestion and edema. Pneumonia cannot be excluded.
[2024-05-26 06:26] LABS: Base Excess -0.9 mmol/L (-2.0-3.0)
--- NOTE | 2024-05-26 09:30 | DVHPN2 ---
Progress Note - Dictate Date Seen: May 26, 2024 Medical Necessity Reason Pt with a Central, PICC or Fol: Yes The following are medically ne: PICC Line, Mcduffie Catheter Reason for mcduffie catheter: Strict I&O Subjective Mr. Linder is a 63 years old gentleman with a history of diabetes, liver cirrhosis, hepatitis-C infection, cancer, the patient was brought to the [facility] on 05/06/2024 with a chief complaint of overdose. At this time, the patient is intubated, on pressor drip, nonresponsive to verbal stimuli, the history obtained from his nurse, chart review. Apparently, the patient was mentally doing fine at the beginning On 05/07/2024, his found him nonresponsive, gurgling in the vehicle, when EMS came over, the patient was woke up after Narcan treatment, but he denied taking any drugs and he did not know what happened. Apparently, the patient was mentally doing fine at the beginning, but he was transferred ICU on 04/09/2024, the tube feeding started the same day. Later the patient was transferred to telemetry On 05/13/2024, his V[employer]UNTEER SERVICES COORDINATOR found tube feeding coming out his mouth cavity, and the patient was nonresponsive to painful stimuli, with respiratory distress, pulse ox down to 70%, the patient was resuscitated and intubated. Later respiratory sample showed tube feeding substances. The patient was has been in ICU, intubated, sedated since In the hospital, the patient was found to have metabolic/hepatic encephalopathy, liver failure, ascites, coagulopathy, urinalysis with positive during culture arrangement for, sepsis with positive blood culture, septic shock, acute kidney failure Today, the patient was responsive to light touch stimuli, questionably to voice, he has obvious jaundice Code assistance, 05/13/2024 1305, tube feeding, out oral cavity, the patient was unresponsive to painful stimuli, agonal respiration, pulse ox was in 70s, the patient was intubated transferred to ICU I have seen and examined the patient, I have discussed with his nurse and the medical staff, the patient was remained intubated, sedated, respond to light painful stimuli He was big volume this morning Fentanyl 75 mcg/hour, Dopa: 2 Blood culture, 05/23/2024: Gram-positive cocci in clusters Urine culture, 05/07/2024: Klebsiella pneumoniae Stool Occult blood, 06/09/2024: Positive UDS, 05/07/2024: Opiates, amphetamine Plasma alcohol, 05/06/2024: <3 Urinalysis, 05/07/2024: WBC: 193, urine leukocyte esterase: 2+ ABG, 05/07/2024: Combined respiratory and metabolic acidosis, 05/13/2024: Metabolic acidosis, 05/15/2024: Respiratory acidosis, 05/19/2024: Respiratory acidosis, 05/25/2024: Respiratory acidosis WBC/HB/PLT/MCV, 05/25/2024: 19.5/8.4/100/93.8 PT/INR/PTT, 05/16/2024: 19.4/1.96, 05/20/2024: 17.2/1.71 BUN/CR, 05/25/2024: 73/1.95 GFR, 10/20/2024: 38 TBI/AST/ALT/AP, 05/25/2024: 25.2/133/76/292 NH3, 05/07/24: 84, 05/12/2024: 30, 05/13/24: 82, 05/16/2024: 43, 05/24/2024: 37 EEG, 05/25/24: Remarkably abnormal Chest x-ray, 05/07/2024: 1. Interval placement of enteric tube with terminus just distal to the expected level of the GEJ. 2. Interval increase in left lung base pulmonary markings suggestive of possible developing infiltrate. 3. Stable diffuse prominence of the pulmonary vasculature. CT head, 05/07/2024: No acute intracranial hemorrhage, midline shift or mass effect. If symptoms persist, further evaluation with MRI is recommended CVA, neck, 05/13/2024: No hemodynamically significant stenosis, aneurysm or dissection involving the major intracranial and neck vessels. The suggested fistulous connection noted on ultrasound between the distal left common carotid artery and left internal jugular vein is not definitely visualized. No contrast extravasation is noted. CT head, 05/25/2024: No acute intracranial process vital signs Vital Sign Date Time Temp Pulse Resp B/P (MAP) Pulse Ox O2 Delivery O2 Flow Rate FiO2 05/26/24 07:56 113 20 106/68 (81) 92 30 05/26/24 06:00 Mechanical Ventilator+ 05/26/24 04:00 97.3 97.3 Total Intake and Output 05/25/24 05/25/24 05/26/24 15:00 23:00 07:00 Intake Total 890.004 ml 1961.978 ml 954.178 ml Output Total 1160 ml 1300 ml Balance 890.004 ml 801.978 ml -345.822 ml medications Current Medications Medications Dose Ordered Sig/Kenisha Route Start Time Stop Time Status Last Admin Dose Admin Sodium Chloride 10 ml Q8HR IV 05/07/24 06:00 05/26/24 05:50 10 ML Ondansetron HCl 4 mg Q4HP PRN IV 05/06/24 22:15 Pantoprazole Sodium 40 mg BID IV 05/08/24 22:00 05/25/24 22:03 40 MG Thiamine HCl 100 mg DAILY IV 05/10/24 10:00 05/25/24 09:36 100 MG Flecainide Acetate 100 mg Q12HR PO 05/09/24 22:00 05/25/24 22:04 100 MG Folic Acid 1 mg DAILY PO 05/11/24 10:00 05/25/24 09:36 1 MG Diagnostic Test (Pha) 1 strip Q6HR 05/10/24 18:00 05/26/24 05:52 1 STRIP Insulin Human Regular FOLLOW SLIDING SCALE Q6HR SC 05/10/24 18:00 05/26/24 06:01 4 UNITS Dextrose 50 ml UD IV 05/10/24 17:15 Sodium Chloride 10 ml QSHIFT@10,22 IV 05/13/24 22:00 05/25/24 09:43 10 ML Fentanyl Citrate 250 ml @ 2.5 mls/hr Q24H IV 05/14/24 04:45 05/26/24 04:57 35 MLS/HR Albuterol 2.5 mg Q4HR NEB 05/15/24 14:00 05/26/24 06:19 2.5 MG Ipratropium [place] 0.5 mg Q4HR NEB 05/15/24 14:00 05/26/24 06:19 0.5 MG Phenylephrine HCl 80 mg/Sodium Chloride 250 ml @ 7.5 mls/hr Q24H IV 05/16/24 11:15 Norepinephrine Bitartrate 32 mg/ Sodium Chloride 250 ml @ 0.938 mls/ hr Q24H IV 05/16/24 11:15 05/26/24 05:47 9.375 MLS/HR Enteral Nutritional Formula 1,000 ml 30ML/HR GT 05/22/24 06:30 05/22/24 14:59 1,000 ML Nystatin 1 applic BID TOP 05/23/24 22:00 05/25/24 09:42 1 APPLIC Ceftazidime Sodium 2.5 gm/ Dextrose 100 ml @ 50 mls/hr Q8H IV 05/23/24 18:00 05/26/24 03:00 50 MLS/HR Metoclopramide HCl 5 mg BID IV 05/23/24 22:00 05/25/24 22:04 5 MG Midazolam HCl 50 ml @ 1 mls/hr Q24H IV 05/24/24 03:00 05/26/24 06:29 5 MLS/HR Vancomycin HCl 0 ml @ 0 mls/hr UD IV 05/24/24 10:00 Octreotide Acetate 100 mcg TID SUBCUT 05/24/24 14:00 05/26/24 05:54 100 MCG Purified Water 200 ml Q6HR GT 05/24/24 18:00 05/26/24 05:49 200 ML Ursodiol 300 mg TID PO 05/25/24 14:00 05/26/24 05:54 300 MG Micafungin Sodium 100 mg/Sodium Chloride 100 ml @ 100 mls/hr DAILY IV 05/26/24 10:00 Methylprednisolone Sodium Succinate 20 mg BID IV 05/25/24 22:00 05/25/24 22:17 20 MG Lactulose 30 ml Q6HR NG 05/26/24 00:00 05/26/24 05:54 30 ML objective The patient is well-nourished and well-developed with no distress. The patient is intubated MENTAL STATUS: Subjective CRANIAL NERVES: Pupils are equal, round and reactive.There are corneal reflexes and doll's eyes phenomenon. No signs of facial weakness. There are gagging or coughing reflexes SENSATION: Responses to touch MOTOR: Normal tone in the upper and lower extremity. Normal muscle bulk. No fasciculations. Movement in the arms and legs noticed. REFLEXES: Deep tendon reflexes are symmetrical. Upgoing toes bilaterally CEREBELLAR/COORDINATION: Deferred GAIT/STATION: deferred. laboratory and microbiology Laboratory Tests 05/26/24 03:25 Test 05/26/24 03:25 Range/Units Serum Glucose 181 H 74-106 mg/dL Problem List Altered mental status Metabolic encephalopathy Hepatic encephalopathy Hypoxic encephalopathy Sepsis, septic shock Liver failure Liver cirrhosis Coagulopathy Jaundice Acute kidney failure Urinary tract infection Pneumonia Assessment/Plan Monitoring Supportive treatment ICU care CT head Stabilize vitals/pressor drip Respiratory support/vent management Oxygen IV antibiotics Thiamine supplementation GI prophylaxis/Protonix Pulmonology on case Nephrology on case GI on case More recommendation per clinical course This medical document was created using an electronic medical record system with i[employer] dictation system. Although this document has been carefully reviewed, there may still be some phonetic and typographical errors. These areas are purely typographical due to imperfections of the software programs, and do not reflect any compromise in the patient's medical care Prognosis guarded Dietary Evaluation Review Comments: 1. Per RN, pt is able to drink liquid but unable to manage jello. Will Downgrade his CCHO-60 diet to pureed texture. 2. offer Glucern BID if PO is still poor 3. elevated BUN, f/u and reassess after pt has a GI and nephrology consult. 4. consider clinimix as a form of protein supplementation as pt has very low albumin. Expected Outcomes/Goals: Gradual wt loss, better DM control. Plan discussed with: Other Critical Care Time(min): 35 GETACHEW BLACKWOOD MD May 26, 2024 09:30
--- NOTE | 2024-05-26 10:49 | DVHPNRES ---
Progress Note Date Seen: May 26, 2024 Resident Creating Document: TIERRA GALEAS RESIDENT Medical Necessity Reason Pt with a Central, PICC or Fol: Yes The following are medically ne: PICC Line, Mcduffie Catheter Reason for mcduffie catheter: Strict I&O Subjective Review of Systems HPI Patient is a 63-year-old male with a past medical history of liver cirrhosis likely secondary to hep C, liver shunt, CHF, diabetes mellitus, prostate cancer, history of lower GI bleed status post blood transfusion was brought to the ER with a chief complaint of drug overdose. Information gathered from reviewing the chart and talking with the patient's family, as per he was found gargling and unresponsive in a car, possible overdose of morphine following which EMS were called. EMS gave the patient Narcan and he woke up but was unable to recall what happened. Urine drug screen in the ER was positive for amphetamine and opiates. Was obtunded and was on oxygen support. While in the ER patient went into atrial fibrillation rapid ventricular response following which she was given diltiazem. Patient while in the hospital had altered mental status, sepsis likely due to UTI with the underlying liver cirrhosis had to be put on mechanical ventilation and put on vasopressor support. Patient was transferred to the ICU for further care. In ICU patient was treated with meropenem for Klebsiella pneumoniae ESBL multidrug resistant and also coverage for suspected aspiration pneumonia in the right lower lung, diuresis for with the Lasix, rifaximin and lactulose for hepatic encephalopathy, Patient's blood cultures were done twice and did not show any growth after 5 days, respiratory sputum cultures did not show any growth. Patient's mental status remained obtunded even after turning of the sedation, had vasopressor requirements therefore he could not be extubated. Past medical history: Liver cirrhosis likely secondary to hep C, liver shunt, CHF, type 2 diabetes mellitus, prostate cancer status post radiotherapy, history of lower GI bleed s/p blood transfusions Past surgical history: Hernia repair, tips, live knee surgery Social history: Patient lives with the , history of smoking less than 1 pack per day, reported alcohol and illicit drug usage Home medications: Lasix 20 mg b.i.d., gabapentin 300 mg q.8 hours, insulin glargine 15 units SC b.i.d., spironolactone 50 mg daily Review of systems 05/25/2024 Patient seen and examined at the bedside. - Patient fentanyl drip, midazolam titred down . Norepinephrine was weaned off from 22->18 mcg/min maintaining a MAP> 65. - current RASS -3 - patient did not have any fever, WBC count trending down. - overnight and in the morning patient had a urine output of 1400ml. Patient did not have any stool in the flexi-seal overnight Objective vital signs Vital Sign Date Time Temp Pulse Resp B/P (MAP) Pulse Ox O2 Delivery O2 Flow Rate FiO2 05/26/24 09:59 113 20 96/55 (69) 91 30 05/26/24 06:00 Mechanical Ventilator+ 05/26/24 04:00 97.3 97.3 Total Intake and Output 05/25/24 05/25/24 05/26/24 15:00 23:00 07:00 Intake Total 890.004 ml 1961.978 ml 954.178 ml Output Total 1160 ml 1300 ml Balance 890.004 ml 801.978 ml -345.822 ml medications Current Medications Medications Dose Ordered Sig/Kenisha Route Start Time Stop Time Status Last Admin Dose Admin Sodium Chloride 10 ml Q8HR IV 05/07/24 06:00 05/26/24 05:50 10 ML Ondansetron HCl 4 mg Q4HP PRN IV 05/06/24 22:15 Pantoprazole Sodium 40 mg BID IV 05/08/24 22:00 05/25/24 22:03 40 MG Thiamine HCl 100 mg DAILY IV 05/10/24 10:00 05/25/24 09:36 100 MG Flecainide Acetate 100 mg Q12HR PO 05/09/24 22:00 05/25/24 22:04 100 MG Folic Acid 1 mg DAILY PO 05/11/24 10:00 05/25/24 09:36 1 MG Diagnostic Test (Pha) 1 strip Q6HR 05/10/24 18:00 05/26/24 05:52 1 STRIP Insulin Human Regular FOLLOW SLIDING SCALE Q6HR SC 05/10/24 18:00 05/26/24 06:01 4 UNITS Dextrose 50 ml UD IV 05/10/24 17:15 Sodium Chloride 10 ml QSHIFT@10,22 IV 05/13/24 22:00 05/25/24 09:43 10 ML Fentanyl Citrate 250 ml @ 2.5 mls/hr Q24H IV 05/14/24 04:45 05/26/24 04:57 35 MLS/HR Albuterol 2.5 mg Q4HR NEB 05/15/24 14:00 05/26/24 06:19 2.5 MG Ipratropium [place] 0.5 mg Q4HR NEB 05/15/24 14:00 05/26/24 06:19 0.5 MG Phenylephrine HCl 80 mg/Sodium Chloride 250 ml @ 7.5 mls/hr Q24H IV 05/16/24 11:15 Norepinephrine Bitartrate 32 mg/ Sodium Chloride 250 ml @ 0.938 mls/ hr Q24H IV 05/16/24 11:15 05/26/24 05:47 9.375 MLS/HR Enteral Nutritional Formula 1,000 ml 30ML/HR GT 05/22/24 06:30 05/22/24 14:59 1,000 ML Nystatin 1 applic BID TOP 05/23/24 22:00 05/25/24 09:42 1 APPLIC Ceftazidime Sodium 2.5 gm/ Dextrose 100 ml @ 50 mls/hr Q8H IV 05/23/24 18:00 05/26/24 03:00 50 MLS/HR Metoclopramide HCl 5 mg BID IV 05/23/24 22:00 05/25/24 22:04 5 MG Midazolam HCl 50 ml @ 1 mls/hr Q24H IV 05/24/24 03:00 05/26/24 06:29 5 MLS/HR Vancomycin HCl 0 ml @ 0 mls/hr UD IV 05/24/24 10:00 Octreotide Acetate 100 mcg TID SUBCUT 05/24/24 14:00 05/26/24 05:54 100 MCG Purified Water 200 ml Q6HR GT 05/24/24 18:00 05/26/24 05:49 200 ML Ursodiol 300 mg TID PO 05/25/24 14:00 05/26/24 05:54 300 MG Micafungin Sodium 100 mg/Sodium Chloride 100 ml @ 100 mls/hr DAILY IV 05/26/24 10:00 Methylprednisolone Sodium Succinate 20 mg BID IV 05/25/24 22:00 05/25/24 22:17 20 MG Lactulose 30 ml Q6HR NG 05/26/24 00:00 05/26/24 05:54 30 ML Examination Patient is ventilated and on sedation with RASS -3 Gen - conjunctival pallor present , scleral icterus present, no cyanosis, no clubbing, no LAD, bilateral 2+ pitting pedal edema Skin - Patients skin is warm and dry, multiple spider angiomata skin on the chest, erythematous rash seen in the groin on both the sides HEENT - normocephalic, atraumatic, moist mucous membranes. Neck - no LAD, no JV distention Pulmonary - decreased breath sounds in the right lower lung, left basilar crackles, no wheezing, no stridor. cardiovascular - variable S1,S2 heard, no added sounds, no murmurs heard. capillary refill normal <2 secs. GI - soft abdomen. no hepatospleenomegaly. Bowel Sounds normoactive Neurological - patient was intubated with a RASS -3 on fentanyl, plantar reflex downgoing, gag reflex present, pupils equal and reactive laboratory and microbiology Laboratory Tests 05/26/24 03:25 Test 05/26/24 03:25 Range/Units Serum Glucose 181 H 74-106 mg/dL Microbiology Date/Time Source Procedure Growth Status 05/23/24 16:00 Sputum Gram Stain - Final Resulted 05/23/24 16:00 Respiratory Culture - Preliminary Presumptive Erickson albicans Resulted 05/23/24 13:22 Blood Blood Culture - Preliminary Resulted 05/23/24 12:30 Urine - Mcduffie [place] Urine Culture - Final Complete 05/13/24 14:00 Nose MRSA Screen - Final Complete Problem List/Assessment/Plan Problem List/Assessment/Plan Neurological # Acute metabolic encephalopathy likely hepatic encephalopathy/toxic drug- induced - head CT 05/07/24 showed no acute intracranial hemorrhage, midline shift or mass effect - urine drug screen at admission positive for opiates and amphetamines - ammonia 37, patient on lactulose - RASS -3, on fentanyl and midazolam drip Respiratory # Acute hypoxemic/hypercarbic respiratory failure # bilateral lower lobe pneumonia likely due to Gram+/-bacteria # bilateral pleural effusion # pulmonary edema with right-sided pleural effusion - on mechanical ventilation with a FiO2 30%, PEEP 5, respiratory rate 20, tidal volume 500ml - ABG reviewed today - compensated - chest x-ray shows bilateral pulmonary edema with blunting of the right CP angle - on ceftazidime-avibactam 2.5 mg q.8 hours and vancomycin - albuterol and ipratropium med nebs q.4 hours - sputum cultures showing the growth of erickson, on micafungin Cardiovascular # Septic shock likely d/t UTI vs pneumonia # new onset atrial fibrillation with RVR # NSTEMI type 2 likely due to demand supply mismatch - Echo shows LVEF 60% with concentric LVH, right atrial enlargement, right ventricular enlargement - on vasopressor support with norepinephrine, we will try to wean off norepinephrine, maintaining MAP > 65mmhg - flecainide 100 mg b.i.d. for AFib - [id number] Vasc- 1, has-bled 2 , currently anticoagulation is held, with the patient SOB positive and history of GI bleeding Gastrointestinal # decompensated liver cirrhosis # history of hepatitis-C infection # history of heavy alcohol use # ?SBP # ascites # hepatic encephalopathy - noted increase in bilirubin - low albumin, elevated PT INR, thrombocytopenia - lactulose 30 mL q.6h - currently on tube feeding at 30 mL/hour - Protonix 40 mg IV b.i.d. - Ursodiol 300 mg b.i.d. - on methylprednisolone 20 mg b.i.d. for suspected alcoholic liver cirrhosis - 05/27- given albumin and lasix as patient had pedal edema and worsening pleural effusion Nephrology # acute kidney injury likely hemodynamically mediated due to shock,+ contrast likely ATN # hypernatremia, resolved - BUN and creatinine, trending down - FENa calculated today at 3% - free water 200 mL via NG tube q.6 hours - pharmacy conveyed that the vancomycin trough to be kept below 15 Infectious disease # septic shock likely due to UTI versus pneumonia versus ?SBP # candidal infection in the groin - initial urine culture showed growth of multidrug resistant Klebsiella ESBL, on meropenem - initial blood cultures, respiratory sputum cultures negative - sputum cultures preliminary show growth of young colonies - ceftazidime-avibactam 2.5 mg q.8 hours and vancomycin per pharmacy with trough to be maintained less than 15 - nystatin powder q.12h for erickson - micafungin - 05/27 repeat blood culutres show growth of staph epidermidis, on vanco Endocrine # Insulin dependent Diabetes mellitus with hyperglycemia - On ISS - goal blood glucose 140-180 mg/dL Polysubstance Use Acute opiate/methamphetamine intoxication DVT prophylaxis: Sequential compression device PUD prophylaxis: Protonix PICC line in the left forearm- placed on 05/13/2024 Mcduffie's catheter- placed on 05/07/2024 Endotracheal intubation- done on 05/13/2024 Goals of care discussed with the patient's Lorna and sister at length about the patient's prognosis . CPAP trial in the morning tomorrow. prognosis guarded Code status- Full code Critical care time excluding procdures spent: 82 mins Plan discussed with Dr. Amaro Plan discussed with: Spouse (Lorna), Other (Sister, RN ( Mary Jane )) My Orders My Orders Orders - TIERRA GALEAS Procedure Category Date Status Time Methylprednisolone PHA 05/25/24 In Process Sod Succ (Solu Medrol 22:00 Abg W/ Co-Ox RT 05/26/24 Logged 04:00 Chest Xray 1 View XY 05/26/24 Resulted 04:00 Lactulose Oral PHA 05/26/24 In Process 00:00 Vancomycin,Random LAB 05/26/24 In Process 10:32 Dietary Evaluation Review Comments: 1. Per RN, pt is able to drink liquid but unable to manage jello. Will Downgrade his CCHO-60 diet to pureed texture. 2. offer Glucern BID if PO is still poor 3. elevated BUN, f/u and reassess after pt has a GI and nephrology consult. 4. consider clinimix as a form of protein supplementation as pt has very low albumin. Expected Outcomes/Goals: Gradual wt loss, better DM control. Date of Service: May 26, 2024 Billing Provider: JUVENAL AMARO MD Common Visit Codes: [id number] CARE 30-74 MIN, [id number] CARE-EACH +30MIN TIERRA GALEAS May 26, 2024 10:49 JUVENAL AMARO MD May 28, 2024 20:40
[2024-05-26] MEDS: MICAFUNGIN SODIUM 100 MG in SODIUM CHL 0.9% 100 ML IV SCH (10:52)
--- NOTE | 2024-05-26 13:35 | DVHPN2 ---
Progress Note Date Seen: May 26, 2024 Medical Necessity Reason Pt with a Central, PICC or Fol: Yes The following are medically ne: PICC Line, Mcduffie Catheter Reason for mcduffie catheter: Strict I&O Subjective Review of Systems: RESPIRATORY:Abnormal Other Systems: Patient seen and examined by myself today in follow-up Patient remained intubated on ventilator Objective vital signs Vital Sign Date Time Temp Pulse Resp B/P (MAP) Pulse Ox O2 Delivery O2 Flow Rate FiO2 05/26/24 11:58 112 20 105/64 (78) 91 30 05/26/24 08:00 Mechanical Ventilator+ 05/26/24 04:00 97.3 97.3 Total Intake and Output 05/25/24 05/25/24 05/26/24 15:00 23:00 07:00 Intake Total 890.004 ml 1961.978 ml 954.178 ml Output Total 1160 ml 1300 ml Balance 890.004 ml 801.978 ml -345.822 ml medications Current Medications Medications Dose Ordered Sig/Kenisha Route Start Time Stop Time Status Last Admin Dose Admin Sodium Chloride 10 ml Q8HR IV 05/07/24 06:00 05/26/24 05:50 10 ML Ondansetron HCl 4 mg Q4HP PRN IV 05/06/24 22:15 Pantoprazole Sodium 40 mg BID IV 05/08/24 22:00 05/26/24 11:06 40 MG Thiamine HCl 100 mg DAILY IV 05/10/24 10:00 05/26/24 11:06 100 MG Flecainide Acetate 100 mg Q12HR PO 05/09/24 22:00 05/26/24 10:50 100 MG Folic Acid 1 mg DAILY PO 05/11/24 10:00 05/26/24 11:05 1 MG Diagnostic Test (Pha) 1 strip Q6HR 05/10/24 18:00 05/26/24 12:02 1 STRIP Insulin Human Regular FOLLOW SLIDING SCALE Q6HR SC 05/10/24 18:00 05/26/24 12:10 4 UNITS Dextrose 50 ml UD IV 05/10/24 17:15 Sodium Chloride 10 ml QSHIFT@10,22 IV 05/13/24 22:00 05/26/24 11:13 10 ML Fentanyl Citrate 250 ml @ 2.5 mls/hr Q24H IV 05/14/24 04:45 05/26/24 11:11 35 MLS/HR Albuterol 2.5 mg Q4HR NEB 05/15/24 14:00 05/26/24 11:02 2.5 MG Ipratropium [place] 0.5 mg Q4HR NEB 05/15/24 14:00 05/26/24 11:01 0.5 MG Phenylephrine HCl 80 mg/Sodium Chloride 250 ml @ 7.5 mls/hr Q24H IV 05/16/24 11:15 Norepinephrine Bitartrate 32 mg/ Sodium Chloride 250 ml @ 0.938 mls/ hr Q24H IV 05/16/24 11:15 05/26/24 05:47 9.375 MLS/HR Enteral Nutritional Formula 1,000 ml 30ML/HR GT 05/22/24 06:30 05/22/24 14:59 1,000 ML Nystatin 1 applic BID TOP 05/23/24 22:00 05/26/24 11:27 1 APPLIC Ceftazidime Sodium 2.5 gm/ Dextrose 100 ml @ 50 mls/hr Q8H IV 05/23/24 18:00 05/26/24 10:53 50 MLS/HR Metoclopramide HCl 5 mg BID IV 05/23/24 22:00 05/26/24 10:51 5 MG Midazolam HCl 50 ml @ 1 mls/hr Q24H IV 05/24/24 03:00 05/26/24 06:29 5 MLS/HR Vancomycin HCl 0 ml @ 0 mls/hr UD IV 05/24/24 10:00 Octreotide Acetate 100 mcg TID SUBCUT 05/24/24 14:00 05/26/24 05:54 100 MCG Purified Water 200 ml Q6HR GT 05/24/24 18:00 05/26/24 12:02 200 ML Ursodiol 300 mg TID PO 05/25/24 14:00 05/26/24 05:54 300 MG Micafungin Sodium 100 mg/Sodium Chloride 100 ml @ 100 mls/hr DAILY IV 05/26/24 10:00 05/26/24 10:52 100 MLS/HR Lactulose 30 ml Q6HR NG 05/26/24 00:00 05/26/24 12:02 30 ML Methylprednisolone Sodium Succinate 20 mg BID IV 05/26/24 22:00 Examination: LUNGS:Normal, CVS:Normal, MSK:Normal laboratory and microbiology Laboratory Tests 05/26/24 03:25 Test 05/26/24 03:25 Range/Units Serum Glucose 181 H 74-106 mg/dL Microbiology Date/Time Source Procedure Growth Status 05/23/24 16:00 Sputum Gram Stain - Final Resulted 05/23/24 16:00 Respiratory Culture - Preliminary Presumptive Clara albicans Resulted 05/23/24 13:22 Blood Blood Culture - Preliminary Resulted 05/23/24 12:30 Urine - [place] Urine Culture - Final Complete 05/13/24 14:00 Nose MRSA Screen - Final Complete Problem List/Assessment/Plan Problem List/Assessment/Plan Acute kidney injury superimposed Chronic Kidney Disease secondary to hemodynamically mediated ATN, FeNa > 2% Acute respiratory failure, intubated on ventilator Aspiration pneumonia Septic shock Hypernatremia due to insensible water loss Hepatic encephalopathy Decompensated liver cirrhosis Acute methamphetamine intoxication heavy alcoholism Hepatitis-C Multidrug resistant ESBL urinary tract infection Recommendations Kidney function continues to improve Increased urine output Hypernatremia appropriately improving Mcduffie catheter Strict I&Os I agree with hypotonic IVF hydration IV Levophed for blood pressure support Octreotide Free water IV antibiotics We will continue to follow Plan discussed with: Other (Nurse) Dietary Evaluation Review Comments: 1. Per RN, pt is able to drink liquid but unable to manage jello. Will Downgrade his CCHO-60 diet to pureed texture. 2. offer Glucern BID if PO is still poor 3. elevated BUN, f/u and reassess after pt has a GI and nephrology consult. 4. consider clinimix as a form of protein supplementation as pt has very low albumin. Expected Outcomes/Goals: Gradual wt loss, better DM control. MELISA MORGAN MD May 26, 2024 13:35
[2024-05-26] MEDS: ALBUMIN 25% 50 ML IV ONE (15:03)
[2024-05-26] MEDS: VANCOMYCIN 750MG KIT 100 ML IV ONE (16:01)
[2024-05-26] MEDS: FUROSEMIDE 20 MG/2 ML VIAL IV ONE (16:08)
--- NOTE | 2024-05-26 21:49 | DVHPN2 ---
Progress Note - Dictate Date Seen: May 26, 2024 Medical Necessity Reason Pt with a Central, PICC or Fol: Yes The following are medically ne: PICC Line, Mcduffie Catheter Reason for mcduffie catheter: Strict I&O Subjective Patient is still not waking up, he is intubated on ventilator His white count has trended down to 19 K; renal function improving Patient has also been started on IV Clinimix at 42 mL/hour Jaundice is worsening vital signs Vital Sign Date Time Temp Pulse Resp B/P (MAP) Pulse Ox O2 Delivery O2 Flow Rate FiO2 05/26/24 20:05 112 20 102/69 (80) 93 30 05/26/24 20:00 Mechanical Ventilator+ 05/26/24 12:00 98.4 98.4 Total Intake and Output 05/25/24 05/25/24 05/26/24 15:00 23:00 07:00 Intake Total 890.004 ml 1961.978 ml 1002.616 ml Output Total 1160 ml 1300 ml Balance 890.004 ml 801.978 ml -297.384 ml medications Current Medications Medications Dose Ordered Sig/Kenisha Route Start Time Stop Time Status Last Admin Dose Admin Sodium Chloride 10 ml Q8HR IV 05/07/24 06:00 05/26/24 15:04 10 ML Ondansetron HCl 4 mg Q4HP PRN IV 05/06/24 22:15 Pantoprazole Sodium 40 mg BID IV 05/08/24 22:00 05/26/24 11:06 40 MG Thiamine HCl 100 mg DAILY IV 05/10/24 10:00 05/26/24 11:06 100 MG Flecainide Acetate 100 mg Q12HR PO 05/09/24 22:00 05/26/24 10:50 100 MG Folic Acid 1 mg DAILY PO 05/11/24 10:00 05/26/24 11:05 1 MG Diagnostic Test (Pha) 1 strip Q6HR 05/10/24 18:00 05/26/24 12:02 1 STRIP Insulin Human Regular FOLLOW SLIDING SCALE Q6HR SC 05/10/24 18:00 05/26/24 17:25 4 UNITS Dextrose 50 ml UD IV 05/10/24 17:15 Sodium Chloride 10 ml QSHIFT@ IV 05/13/24 22:00 05/26/24 11:13 10 ML Fentanyl Citrate 250 ml @ 2.5 mls/hr Q24H IV 05/14/24 04:45 05/26/24 17:20 35 MLS/HR Albuterol 2.5 mg Q4HR NEB 05/15/24 14:00 05/26/24 17:59 2.5 MG Ipratropium [place] 0.5 mg Q4HR NEB 05/15/24 14:00 05/26/24 17:59 0.5 MG Phenylephrine HCl 80 mg/Sodium Chloride 250 ml @ 7.5 mls/hr Q24H IV 05/16/24 11:15 Norepinephrine Bitartrate 32 mg/ Sodium Chloride 250 ml @ 0.938 mls/ hr Q24H IV 05/16/24 11:15 05/26/24 05:47 9.375 MLS/HR Enteral Nutritional Formula 1,000 ml 30ML/HR GT 05/22/24 06:30 05/22/24 14:59 1,000 ML Nystatin 1 applic BID TOP 05/23/24 22:00 05/26/24 11:27 1 APPLIC Ceftazidime Sodium 2.5 gm/ Dextrose 100 ml @ 50 mls/hr Q8H IV 05/23/24 18:00 05/26/24 17:16 50 MLS/HR Metoclopramide HCl 5 mg BID IV 05/23/24 22:00 05/26/24 10:51 5 MG Midazolam HCl 50 ml @ 1 mls/hr Q24H IV 05/24/24 03:00 05/26/24 16:24 5 MLS/HR Vancomycin HCl 0 ml @ 0 mls/hr UD IV 05/24/24 10:00 Octreotide Acetate 100 mcg TID SUBCUT 05/24/24 14:00 05/26/24 13:39 100 MCG Purified Water 200 ml Q6HR GT 05/24/24 18:00 05/26/24 17:36 200 ML Ursodiol 300 mg TID PO 05/25/24 14:00 05/26/24 13:38 300 MG Micafungin Sodium 100 mg/Sodium Chloride 100 ml @ 100 mls/hr DAILY IV 05/26/24 10:00 05/26/24 10:52 100 MLS/HR Lactulose 30 ml Q6HR NG 05/26/24 00:00 05/26/24 17:35 30 ML Methylprednisolone Sodium Succinate 20 mg BID IV 05/26/24 22:00 objective General: Intubated sedated HEENT: NC/AT EOMI dry mucous membranes Heart: Tachycardic regular rhythm Abdomen: Soft nontender nondistended Extremity: No clubbing cyanosis or edema laboratory and microbiology Laboratory Tests 05/26/24 03:25 Test 05/26/24 03:25 Range/Units Serum Glucose 181 H 74-106 mg/dL Problems(with codes): (1) Jaundice (2) Aspiration pneumonia (3) MRSA (methicillin resistant Staphylococcus aureus) septicemia (4) Hepatitis C (5) Liver failure (6) Cirrhosis (7) Ascites (8) Pulmonary vascular congestion Prognosis Plan Patient has worsening jaundice 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 three times a day IV methylprednisolone 20 mg IV q.12 hours Monitor labs Prognosis guardeds Dietary Evaluation Review Comments: 1. Per RN, pt is able to drink liquid but unable to manage jello. Will Downgrade his CCHO-60 diet to pureed texture. 2. offer Glucern BID if PO is still poor 3. elevated BUN, f/u and reassess after pt has a GI and nephrology consult. 4. consider clinimix as a form of protein supplementation as pt has very low albumin. Expected Outcomes/Goals: Gradual wt loss, better DM control. Plan discussed with: Other (Dr Santos and Dr Cortez) PAULINA BAINS MD May 26, 2024 21:49
[2024-05-26] MEDS: methylPREDNISolone SOD SUCC 125 MG/2 ML VL IV SCH (21:55)
[2024-05-27] VITALS (105 sets, daily range): BP systolic 76–158; BP diastolic 33–84; PULSE 106–116; RESP 17–24; TEMP 97.6–98.3; O2SAT 90–100
[2024-05-27 04:36] LABS: Basophils # (auto) 0.1 10 ^3/uL (0-0.2); Basophils % (auto) 0.4 % (0.0-2.0); Eosinophils # (auto) 0 10 ^3/uL (0-0.8); Eosinophils % (auto) 0.1 % (0.0-7.0); Hematocrit 26.7 % (41.0-53.0); Hemoglobin 8.5 g/dL (13.5-17.5); Lymphocytes # (auto) 0.4 10 ^3/uL (0.4-5.4); Lymphocytes % (auto) 2.2 % (10.0-50.0); Mean Corpuscular Hemoglobin 30.5 pg (28.0-32.0); Mean Corpuscular Hgb Conc. 31.7 g/dL (32.0-36.0); Mean Corpuscular Volume 96.3 fL (80.0-100.0); Monocytes # (auto) 0.9 10 ^3/uL (0-1.3); Monocytes % (auto) 4.2 % (0.0-12.0); Neutrophils # (auto) 19.1 10 ^3/uL (1.6-8.6); Neutrophils % (auto) 93.1 % (37.0-80.0); Nucleated Red Blood Cells % 0.1 %; Platelet Count (auto) 121 10^3/uL (140-450); Red Blood Cells 2.78 10^6/uL (4.5-5.90); Red Cell Distribution Width 25.6 % (11.8-14.3); White Blood Cell 20.5 10^3/uL (4.4-10.8)
[2024-05-27 04:50] LABS: Anion Gap 9 (5-15); Carbon Dioxide 25 mmol/L (20-31); Potassium 3.9 mmol/L (3.5-5.1); Sodium 143 mmol/L (136-145)
[2024-05-27 04:54] LABS: Albumin 2.6 g/dL (3.2-4.8); Alkaline Phosphatase 297 U/L (46-116); Bilirubin, Total 27.3 mg/dL (0.2-1.0); Calcium 10.5 mg/dL (8.7-10.4); Chloride 109 mmol/L (98-107); Glucose 215 mg/dL (74-106)
[2024-05-27 05:10] LABS: Alanine Aminotransferase 79 U/L (7-40); Aspartate Aminotransferase 100 U/L (13-40); Blood Urea Nitrogen 64 mg/dL (9-23); Total Protein 5.6 g/dL (5.7-8.2)
--- NOTE | 2024-05-27 05:31 | DVH ---
EXAM: XR Chest, 1 View CLINICAL INDICATION: pleural effusion, on vent TECHNIQUE: Frontal view of the chest. COMPARISON: XY CHEST XRAY 1 VIEW on DOS: 05/26/24, XY CHEST XRAY 1 VIEW on DOS: 05/24/24, XY CHEST POR TABLE on DOS: 05/23/24, XY CHEST PORTABLE on DOS: 05/22/24, XY CHEST PORTABLE on DOS: 05/21/24 FINDINGS: LUNGS AND PLEURAL SPACES: Pulmonary venous congestion. Right pleural effusion. No consolidation. No pneumothorax. HEART: Unremarkable. No cardiomegaly. MEDIASTINUM: Unremarkable. Normal mediastinal contour. BONES/JOINTS: Unremarkable. No acute fracture. TUBES, LINES AND DEVICES: Right internal jugular central venous catheter tip in the superior vena c otf. The endotracheal tube (ETT) is in satisfactory position. OTHER FINDINGS: . . .. IMPRESSION: 1. Pulmonary venous congestion. 2. Right pleural effusion.
[2024-05-27 06:43] LABS: Anisocytosis Slight; Ovalocytes FEW; Platelet Estimate Decreased
[2024-05-27 06:44] LABS: Base Excess -1.3 mmol/L (-2.0-3.0)
--- NOTE | 2024-05-27 08:52 | DVH ---
US CHEST ULTRASOUND, HISTORY: right pleural eff COMPARISON(S): None TECHNICAL DATA: Transverse and longitudinal images are obtained of the chest. FINDING: IMPRESSION(S): There is a trace right pleural effusion and trace ascites.
--- NOTE | 2024-05-27 10:36 | DVH ---
Date: 05/27/2024 10:12 AM Examination: XY KUB ABDOMEN SINGLE VIEW History: abd distention Comparison: None TECHNIQUE: Frontal views of the abdomen was obtained. FINDINGS: Bowel gas pattern is unremarkable. Moderate stool burden. Enteric tube tip projects over the expected region of the stomach. Vascular stent projects over the right upper quadrant. Inferior vena cava abraham ter is visualized. Right retrocardiac opacity No acute osseous abnormality identified. IMPRESSION: Nonobstructive bowel gas pattern. Moderate stool burden. Gaseous distended stomach. Enteric tube in a ppropriate position.
--- NOTE | 2024-05-27 11:04 | DVHPN2 ---
Progress Note Date Seen: May 27, 2024 Medical Necessity Reason Pt with a Central, PICC or Fol: Yes The following are medically ne: PICC Line, Mcduffie Catheter Reason for mcduffie catheter: Strict I&O Subjective Review of Systems: RESPIRATORY:Abnormal Other Systems: Patient seen and examined by myself today in follow-up, patient remained intubated on ventilator Objective vital signs Vital Sign Date Time Temp Pulse Resp B/P (MAP) Pulse Ox O2 Delivery O2 Flow Rate FiO2 05/27/24 09:54 107 22 122/64 (83) 94 30 05/27/24 06:00 Mechanical Ventilator+ 05/27/24 04:00 98.2 98.2 Total Intake and Output 05/26/24 05/26/24 05/27/24 14:59 22:59 06:59 Intake Total 587.504 ml 1406.628 ml 1003.998 ml Output Total 1200 ml 825 ml Balance 587.504 ml 206.628 ml 178.998 ml medications Current Medications Medications Dose Ordered Sig/Kenisha Route Start Time Stop Time Status Last Admin Dose Admin Sodium Chloride 10 ml Q8HR IV 05/07/24 06:00 05/27/24 05:50 10 ML Ondansetron HCl 4 mg Q4HP PRN IV 05/06/24 22:15 Pantoprazole Sodium 40 mg BID IV 05/08/24 22:00 05/27/24 10:20 40 MG Thiamine HCl 100 mg DAILY IV 05/10/24 10:00 05/27/24 10:21 100 MG Flecainide Acetate 100 mg Q12HR PO 05/09/24 22:00 05/27/24 10:34 100 MG Folic Acid 1 mg DAILY PO 05/11/24 10:00 05/27/24 10:34 1 MG Diagnostic Test (Pha) 1 strip Q6HR 05/10/24 18:00 05/27/24 05:46 1 STRIP Insulin Human Regular FOLLOW SLIDING SCALE Q6HR SC 05/10/24 18:00 05/27/24 05:49 8 UNITS Dextrose 50 ml UD IV 05/10/24 17:15 Sodium Chloride 10 ml QSHIFT@10,22 IV 05/13/24 22:00 05/27/24 10:35 10 ML Fentanyl Citrate 250 ml @ 2.5 mls/hr Q24H IV 05/14/24 04:45 4/11/25 01:21 32.5 MLS/HR Albuterol 2.5 mg Q4HR NEB 05/15/24 14:00 05/27/24 09:54 2.5 MG Ipratropium [place] 0.5 mg Q4HR NEB 05/15/24 14:00 05/27/24 09:54 0.5 MG Phenylephrine HCl 80 mg/Sodium Chloride 250 ml @ 7.5 mls/hr Q24H IV 05/16/24 11:15 Norepinephrine Bitartrate 32 mg/ Sodium Chloride 250 ml @ 0.938 mls/ hr Q24H IV 05/16/24 11:15 05/26/24 05:47 9.375 MLS/HR Enteral Nutritional Formula 1,000 ml 30ML/HR GT 05/22/24 06:30 05/22/24 14:59 1,000 ML Nystatin 1 applic BID TOP 05/23/24 22:00 05/27/24 10:35 1 APPLIC Ceftazidime Sodium 2.5 gm/ Dextrose 100 ml @ 50 mls/hr Q8H IV 05/23/24 18:00 05/27/24 10:30 50 MLS/HR Metoclopramide HCl 5 mg BID IV 05/23/24 22:00 05/27/24 10:23 5 MG Midazolam HCl 50 ml @ 1 mls/hr Q24H IV 05/24/24 03:00 05/27/24 02:42 5 MLS/HR Vancomycin HCl 0 ml @ 0 mls/hr UD IV 05/24/24 10:00 Octreotide Acetate 100 mcg TID SUBCUT 05/24/24 14:00 05/27/24 05:42 100 MCG Purified Water 200 ml Q6HR GT 05/24/24 18:00 05/27/24 05:49 200 ML Ursodiol 300 mg TID PO 05/25/24 14:00 05/27/24 05:49 300 MG Micafungin Sodium 100 mg/Sodium Chloride 100 ml @ 100 mls/hr DAILY IV 05/26/24 10:00 05/27/24 10:23 100 MLS/HR Lactulose 30 ml Q6HR NG 05/26/24 00:00 05/27/24 05:41 30 ML Methylprednisolone Sodium Succinate 20 mg BID IV 05/26/24 22:00 05/27/24 10:20 20 MG Examination: LUNGS:Normal, CVS:Normal, MSK:Normal laboratory and microbiology Laboratory Tests 05/27/24 03:30 05/27/24 00:48 Test 05/27/24 03:30 Range/Units Serum Glucose 215 H 74-106 mg/dL Microbiology Date/Time Source Procedure Growth Status 05/23/24 16:00 Sputum Gram Stain - Final Resulted 05/23/24 16:00 Respiratory Culture - Preliminary Presumptive Clara albicans Resulted 05/23/24 13:22 Blood Blood Culture - Final Staphylococcus epidermidis Complete 05/23/24 12:30 Urine - [place] Urine Culture - Final Complete 05/13/24 14:00 Nose MRSA Screen - Final Complete Problem List/Assessment/Plan Problem List/Assessment/Plan Acute kidney injury superimposed Chronic Kidney Disease secondary to hemodynamically mediated ATN, FeNa > 2% Acute respiratory failure, intubated on ventilator Aspiration pneumonia Septic shock Hypernatremia due to insensible water loss Hepatic encephalopathy Decompensated liver cirrhosis Acute methamphetamine intoxication heavy alcoholism Hepatitis-C Multidrug resistant ESBL urinary tract infection Recommendations Kidney function continues to improve Increased urine output Hypernatremia appropriately resolved Mcduffie catheter Strict I&Os I agree with hypotonic IVF hydration IV Levophed for blood pressure support Octreotide Free water IV antibiotics We will continue to follow Plan discussed with: Other (Nurse) Dietary Evaluation Review Comments: 1. Per RN, pt is able to drink liquid but unable to manage jello. Will Downgrade his CCHO-60 diet to pureed texture. 2. offer Glucern BID if PO is still poor 3. elevated BUN, f/u and reassess after pt has a GI and nephrology consult. 4. consider clinimix as a form of protein supplementation as pt has very low albumin. Expected Outcomes/Goals: Gradual wt loss, better DM control. MELISA MORGAN MD May 27, 2024 11:04
--- NOTE | 2024-05-27 13:26 | DVHPNRES ---
Progress Note Date Seen: May 27, 2024 Resident Creating Document: MELCHOR SPANGLER RESIDENT Medical Necessity Reason Pt with a Central, PICC or Fol: Yes The following are medically ne: PICC Line, Mcduffie Catheter Reason for mcduffie catheter: Strict I&O Subjective Review of Systems Patient seen and examined at the bedside. On fentanyl drip, midazolam titred down . Norepinephrine was weaned off to 10 mcg/min maintaining a MAP> 65. Patient did not have any stool in the flexi-seal overnight Objective vital signs Vital Sign Date Time Temp Pulse Resp B/P (MAP) Pulse Ox O2 Delivery O2 Flow Rate FiO2 05/27/24 11:53 109 22 113/60 (77) 93 30 05/27/24 08:00 97.9 97.9 05/27/24 06:00 Mechanical Ventilator+ Total Intake and Output 05/26/24 05/26/24 05/27/24 15:00 23:00 07:00 Intake Total 587.504 ml 1406.628 ml 981.830 ml Output Total 1200 ml 825 ml Balance 587.504 ml 206.628 ml 156.830 ml medications Current Medications Medications Dose Ordered Sig/Kenisha Route Start Time Stop Time Status Last Admin Dose Admin Sodium Chloride 10 ml Q8HR IV 05/07/24 06:00 05/27/24 05:50 10 ML Ondansetron HCl 4 mg Q4HP PRN IV 05/06/24 22:15 Pantoprazole Sodium 40 mg BID IV 05/08/24 22:00 05/27/24 10:20 40 MG Thiamine HCl 100 mg DAILY IV 05/10/24 10:00 05/27/24 10:21 100 MG Flecainide Acetate 100 mg Q12HR PO 05/09/24 22:00 05/27/24 10:34 100 MG Folic Acid 1 mg DAILY PO 05/11/24 10:00 05/27/24 10:34 1 MG Diagnostic Test (Pha) 1 strip Q6HR 05/10/24 18:00 05/27/24 12:02 1 STRIP Insulin Human Regular FOLLOW SLIDING SCALE Q6HR SC 05/10/24 18:00 05/27/24 05:49 8 UNITS Dextrose 50 ml UD IV 05/10/24 17:15 Sodium Chloride 10 ml QSHIFT@, IV 05/13/24 22:00 05/27/24 10:35 10 ML Fentanyl Citrate 250 ml @ 2.5 mls/hr Q24H IV 05/14/24 04:45 05/27/24 01:21 32.5 MLS/HR Albuterol 2.5 mg Q4HR NEB 05/15/24 14:00 05/27/24 09:54 2.5 MG Ipratropium [place] 0.5 mg Q4HR NEB 05/15/24 14:00 05/27/24 09:54 0.5 MG Phenylephrine HCl 80 mg/Sodium Chloride 250 ml @ 7.5 mls/hr Q24H IV 05/16/24 11:15 Norepinephrine Bitartrate 32 mg/ Sodium Chloride 250 ml @ 0.938 mls/ hr Q24H IV 05/16/24 11:15 05/27/24 12:57 5.625 MLS/HR Enteral Nutritional Formula 1,000 ml 30ML/HR GT 05/22/24 06:30 05/22/24 14:59 1,000 ML Nystatin 1 applic BID TOP 05/23/24 22:00 05/27/24 10:35 1 APPLIC Ceftazidime Sodium 2.5 gm/ Dextrose 100 ml @ 50 mls/hr Q8H IV 05/23/24 18:00 05/27/24 10:30 50 MLS/HR Metoclopramide HCl 5 mg BID IV 05/23/24 22:00 05/27/24 10:23 5 MG Midazolam HCl 50 ml @ 1 mls/hr Q24H IV 05/24/24 03:00 05/27/24 02:42 5 MLS/HR Vancomycin HCl 0 ml @ 0 mls/hr UD IV 05/24/24 10:00 Octreotide Acetate 100 mcg TID SUBCUT 05/24/24 14:00 05/27/24 05:42 100 MCG Purified Water 200 ml Q6HR GT 05/24/24 18:00 05/27/24 13:05 200 ML Ursodiol 300 mg TID PO 05/25/24 14:00 05/27/24 05:49 300 MG Micafungin Sodium 100 mg/Sodium Chloride 100 ml @ 100 mls/hr DAILY IV 05/26/24 10:00 05/27/24 10:23 100 MLS/HR Lactulose 30 ml Q6HR NG 05/26/24 00:00 05/27/24 13:05 30 ML Methylprednisolone Sodium Succinate 20 mg BID IV 05/26/24 22:00 05/27/24 10:20 20 MG Examination Patient is ventilated and on sedation Gen - conjunctival pallor present , scleral icterus present, no cyanosis, no clubbing, no LAD, bilateral 2+ pitting pedal edema Skin - Patients skin is warm and dry, multiple spider angiomata skin on the chest, erythematous rash seen in the groin on both the sides HEENT - normocephalic, atraumatic, moist mucous membranes. Neck - no LAD, no JV distention Pulmonary - decreased breath sounds in the right lower lung, left basilar crackles, no wheezing, no stridor. cardiovascular - variable S1,S2 heard, no added sounds, no murmurs heard. capillary refill normal <2 secs. GI - soft abdomen. no hepatospleenomegaly. Bowel Sounds normoactive Neurological - plantar reflex downgoing, gag reflex present, pupils equal and reactive laboratory and microbiology Laboratory Tests 05/27/24 03:30 05/27/24 00:48 Test 05/27/24 03:30 Range/Units Serum Glucose 215 H 74-106 mg/dL Microbiology Date/Time Source Procedure Growth Status 05/23/24 16:00 Sputum Gram Stain - Final Complete 05/23/24 16:00 Respiratory Culture - Final Staphylococcus haemolyticus Presumptive Erickson albicans Complete 05/23/24 13:22 Blood Blood Culture - Final Staphylococcus epidermidis Complete 05/23/24 12:30 Urine - Mcduffie [place] Urine Culture - Final Complete 05/13/24 14:00 Nose MRSA Screen - Final Complete Labs and/or images reviewed: Labs reviewed by me, Image(s) reviewed by me Problem List/Assessment/Plan Problem List/Assessment/Plan Neurological # Acute metabolic encephalopathy likely hepatic encephalopathy/toxic drug- induced - head CT 05/07/24 showed no acute intracranial hemorrhage, midline shift or mass effect - urine drug screen at admission positive for opiates and amphetamines - ammonia 37, patient on lactulose - RASS -3, on fentanyl and midazolam drip Respiratory # Acute hypoxemic/hypercarbic respiratory failure # bilateral lower lobe pneumonia likely due to Gram+/-bacteria # bilateral pleural effusion # pulmonary edema with right-sided pleural effusion - on mechanical ventilation with a FiO2 30%, PEEP 5, respiratory rate 20, tidal volume 500ml - ABG reviewed today - compensated - chest x-ray shows bilateral pulmonary edema with blunting of the right CP angle - on ceftazidime-avibactam 2.5 mg q.8 hours and vancomycin - albuterol and ipratropium med nebs q.4 hours - sputum cultures showing the growth of erickson, on micafungin Cardiovascular # Septic shock likely d/t UTI vs pneumonia # new onset atrial fibrillation with RVR # NSTEMI type 2 likely due to demand supply mismatch - Echo shows LVEF 60% with concentric LVH, right atrial enlargement, right ventricular enlargement - on vasopressor support with norepinephrine, we will try to wean off norepinephrine, maintaining MAP > 65mmhg - flecainide 100 mg b.i.d. for AFib - [id number] Vasc- 1, has-bled 2 , currently anticoagulation is held, with the patient SOB positive and history of GI bleeding Gastrointestinal # decompensated liver cirrhosis # history of hepatitis-C infection # history of heavy alcohol use # ?SBP # ascites # hepatic encephalopathy - noted increase in bilirubin - low albumin, elevated PT INR, thrombocytopenia - lactulose 30 mL q.6h - currently on tube feeding at 30 mL/hour - Protonix 40 mg IV b.i.d. - Ursodiol 300 mg b.i.d. - on methylprednisolone 20 mg b.i.d. for suspected alcoholic liver cirrhosis - 05/27- given albumin and lasix as patient had pedal edema and worsening pleural effusion gave tap water enema Nephrology # acute kidney injury likely hemodynamically mediated due to shock,+ contrast likely ATN # hypernatremia, resolved - BUN and creatinine, trending down - FENa calculated today at 3% - free water 200 mL via NG tube q.6 hours - pharmacy conveyed that the vancomycin trough to be kept below 15 Infectious disease # septic shock likely due to UTI versus pneumonia versus ?SBP # candidal infection in the groin - initial urine culture showed growth of multidrug resistant Klebsiella ESBL, on meropenem - initial blood cultures, respiratory sputum cultures negative - sputum cultures preliminary show growth of young colonies - ceftazidime-avibactam 2.5 mg q.8 hours and vancomycin per pharmacy with trough to be maintained less than 15 - nystatin powder q.12h for erickson - micafungin - 04/11 repeat blood culutres show growth of staph epidermidis, on vanco Endocrine # Insulin dependent Diabetes mellitus with hyperglycemia - On ISS - goal blood glucose 140-180 mg/dL Polysubstance Use Acute opiate/methamphetamine intoxication DVT prophylaxis: Sequential compression device PUD prophylaxis: Protonix PICC line in the left forearm- placed on 05/13/2024 Mcduffie's catheter- placed on 05/07/2024 Endotracheal intubation- done on 05/13/2024 Goals of care discussed with the patient's Lorna and sister at length about the patient's prognosis . prognosis guarded Code status- Full code Critical care time excluding procdures spent: 65 mins Plan discussed with Dr. Lozada Plan discussed with: Spouse, Other (RN) My Orders My Orders Orders - MELCHOR SPANGLER RESIDENT Procedure Category Date Status Time Chest Ultrasound US 05/27/24 Resulted 07:58 Ventilator Orders RT 05/27/24 Transmitted 07:58 Kub Abdomen Single XY 05/27/24 Resulted View 09:10 Tap Water Enema ORDERS 05/27/24 Transmitted 11:17 Dietary Evaluation Review Comments: 1. Per RN, pt is able to drink liquid but unable to manage jello. Will Downgrade his CCHO-60 diet to pureed texture. 2. offer Glucern BID if PO is still poor 3. elevated BUN, f/u and reassess after pt has a GI and nephrology consult. 4. consider clinimix as a form of protein supplementation as pt has very low albumin. Expected Outcomes/Goals: Gradual wt loss, better DM control. MELCHOR SPANGLER RESIDENT May 27, 2024 13:26
--- NOTE | 2024-05-27 15:16 | DVHPN2 ---
Progress Note - Dictate Date Seen: May 27, 2024 Medical Necessity Reason Pt with a Central, PICC or Fol: Yes The following are medically ne: PICC Line, Mcduffie Catheter Reason for mcduffie catheter: Strict I&O Subjective Mr. Linder is a 63 years old gentleman with a history of diabetes, liver cirrhosis, hepatitis-C infection, cancer, the patient was brought to the [facility] on 05/06/2024 with a chief complaint of overdose. I have seen and examined the patient was, discussed with his nurse, in the room and she confirmed the history. He was intubated, sedated, he moves the arms spontaneously Levo 10 mcg/minute Blood culture, 05/23/2024: Gram-positive cocci in clusters Urine culture, 05/07/2024: Klebsiella pneumoniae Stool Occult blood, 06/09/2024: Positive UDS, 05/07/2024: Opiates, amphetamine Plasma alcohol, 05/06/2024: <3 Urinalysis, 05/07/2024: WBC: 193, urine leukocyte esterase: 2+ ABG, 05/07/2024: Combined respiratory and metabolic acidosis, 05/13/2024: Metabolic acidosis, 05/15/2024: Respiratory acidosis, 05/19/2024: Respiratory acidosis, 05/25/2024: Respiratory acidosis WBC/HB/PLT/MCV, 05/25/2024: 19.5/8.4/100/93.8 PT/INR/PTT, 05/16/2024: 19.4/1.96, 05/20/2024: 17.2/1.71 BUN/CR, 05/25/2024: 73/1.95 GFR, 10/20/2024: 38 TBI/AST/ALT/AP, 05/25/2024: 25.2/133/76/292 NH3, 05/07/24: 84, 05/12/2024: 30, 05/13/24: 82, 05/16/2024: 43, 05/24/2024: 37 EEG, 05/25/24: Remarkably abnormal EEG Chest x-ray, 05/07/2024: 1. Interval placement of enteric tube with terminus just distal to the expected level of the GEJ. 2. Interval increase in left lung base pulmonary markings suggestive of possible developing infiltrate. 3. Stable diffuse prominence of the pulmonary vasculature. CT head, 05/07/2024: No acute intracranial hemorrhage, midline shift or mass effect. If symptoms persist, further evaluation with MRI is recommended CVA, neck, 05/13/2024: No hemodynamically significant stenosis, aneurysm or dissection involving the major intracranial and neck vessels. The suggested fistulous connection noted on ultrasound between the distal left common carotid artery and left internal jugular vein is not definitely visualized. No contrast extravasation is noted. CT head, 05/25/2024: No acute intracranial process vital signs Vital Sign Date Time Temp Pulse Resp B/P (MAP) Pulse Ox O2 Delivery O2 Flow Rate FiO2 05/27/24 14:01 111 24 104/52 (69) 93 30 05/27/24 12:00 97.6 97.6 05/27/24 08:00 Mechanical Ventilator+ Total Intake and Output 05/26/24 05/26/24 05/27/24 15:00 23:00 07:00 Intake Total 587.504 ml 1406.628 ml 981.830 ml Output Total 1200 ml 825 ml Balance 587.504 ml 206.628 ml 156.830 ml medications Current Medications Medications Dose Ordered Sig/Kenisha Route Start Time Stop Time Status Last Admin Dose Admin Sodium Chloride 10 ml Q8HR IV 05/07/24 06:00 05/27/24 14:57 10 ML Ondansetron HCl 4 mg Q4HP PRN IV 05/06/24 22:15 Pantoprazole Sodium 40 mg BID IV 05/08/24 22:00 05/27/24 10:20 40 MG Thiamine HCl 100 mg DAILY IV 05/10/24 10:00 05/27/24 10:21 100 MG Flecainide Acetate 100 mg Q12HR PO 05/09/24 22:00 05/27/24 10:34 100 MG Folic Acid 1 mg DAILY PO 05/11/24 10:00 05/27/24 10:34 1 MG Diagnostic Test (Pha) 1 strip Q6HR 05/10/24 18:00 05/27/24 12:02 1 STRIP Insulin Human Regular FOLLOW SLIDING SCALE Q6HR SC 05/10/24 18:00 05/27/24 14:47 4 UNITS Dextrose 50 ml UD IV 05/10/24 17:15 Sodium Chloride 10 ml QSHIFT@10,22 IV 05/13/24 22:00 05/27/24 10:35 10 ML Fentanyl Citrate 250 ml @ 2.5 mls/hr Q24H IV 05/14/24 04:45 05/27/24 01:21 32.5 MLS/HR Albuterol 2.5 mg Q4HR NEB 05/15/24 14:00 05/27/24 14:01 2.5 MG Ipratropium [place] 0.5 mg Q4HR NEB 05/15/24 14:00 05/27/24 14:01 0.5 MG Phenylephrine HCl 80 mg/Sodium Chloride 250 ml @ 7.5 mls/hr Q24H IV 05/16/24 11:15 Norepinephrine Bitartrate 32 mg/ Sodium Chloride 250 ml @ 0.938 mls/ hr Q24H IV 05/16/24 11:15 05/27/24 12:57 5.625 MLS/HR Enteral Nutritional Formula 1,000 ml 30ML/HR GT 05/22/24 06:30 05/22/24 14:59 1,000 ML Nystatin 1 applic BID TOP 05/23/24 22:00 05/27/24 10:35 1 APPLIC Ceftazidime Sodium 2.5 gm/ Dextrose 100 ml @ 50 mls/hr Q8H IV 05/23/24 18:00 05/27/24 10:30 50 MLS/HR Metoclopramide HCl 5 mg BID IV 05/23/24 22:00 05/27/24 10:23 5 MG Midazolam HCl 50 ml @ 1 mls/hr Q24H IV 05/24/24 03:00 05/27/24 02:42 5 MLS/HR Vancomycin HCl 0 ml @ 0 mls/hr UD IV 05/24/24 10:00 Octreotide Acetate 100 mcg TID SUBCUT 05/24/24 14:00 05/27/24 14:58 100 MCG Purified Water 200 ml Q6HR GT 05/24/24 18:00 05/27/24 13:05 200 ML Ursodiol 300 mg TID PO 05/25/24 14:00 05/27/24 14:57 300 MG Micafungin Sodium 100 mg/Sodium Chloride 100 ml @ 100 mls/hr DAILY IV 05/26/24 10:00 05/27/24 10:23 100 MLS/HR Lactulose 30 ml Q6HR NG 05/26/24 00:00 05/27/24 13:05 30 ML Methylprednisolone Sodium Succinate 20 mg BID IV 05/26/24 22:00 05/27/24 10:20 20 MG objective The patient is well-nourished and well-developed with no distress. The patient is intubated MENTAL STATUS: Subjective CRANIAL NERVES: Pupils are equal, round and reactive.There are corneal reflexes and doll's eyes phenomenon. No signs of facial weakness. There are gagging or coughing reflexes SENSATION: Responses to touch MOTOR: Normal tone in the upper and lower extremity. Normal muscle bulk. No fasciculations. Movement in the arms and legs noticed. REFLEXES: Deep tendon reflexes are symmetrical. Upgoing toes bilaterally CEREBELLAR/COORDINATION: Deferred GAIT/STATION: deferred. laboratory and microbiology Laboratory Tests 05/27/24 03:30 05/27/24 00:48 Test 05/27/24 03:30 Range/Units Serum Glucose 215 H 74-106 mg/dL Problem List Altered mental status Metabolic encephalopathy Hepatic encephalopathy Hypoxic encephalopathy Sepsis, septic shock Liver failure Liver cirrhosis Coagulopathy Jaundice Acute kidney failure Urinary tract infection Pneumonia Assessment/Plan Monitoring Supportive treatment ICU care CT head Stabilize vitals/pressor drip Respiratory support/vent management Oxygen IV antibiotics Thiamine supplementation GI prophylaxis/Protonix Pulmonology on case Nephrology on case GI on case More recommendation per clinical course This medical document was created using an electronic medical record system with [employer] dictation system. Although this document has been carefully reviewed, there may still be some phonetic and typographical errors. These areas are purely typographical due to imperfections of the software programs, and do not reflect any compromise in the patient's medical care Prognosis guarded Dietary Evaluation Review Comments: 1. Per RN, pt is able to drink liquid but unable to manage jello. Will Downgrade his CCHO-60 diet to pureed texture. 2. offer Glucern BID if PO is still poor 3. elevated BUN, f/u and reassess after pt has a GI and nephrology consult. 4. consider clinimix as a form of protein supplementation as pt has very low albumin. Expected Outcomes/Goals: Gradual wt loss, better DM control. Plan discussed with: Spouse Critical Care Time(min): 35 GETACHEW BLACKWOOD MD May 27, 2024 15:16
[2024-05-27] MEDS: VANCOMYCIN 500mg/100mL 100 ML IV ONE (16:26)
--- NOTE | 2024-05-27 20:26 | DVHPN2 ---
Progress Note - Dictate Date Seen: May 27, 2024 Medical Necessity Reason Pt with a Central, PICC or Fol: Yes The following are medically ne: PICC Line, Mcduffie Catheter Reason for mcduffie catheter: Strict I&O Subjective No new complaints, patient is still intubated sedated in ICU Persistent leukocytosis, bilirubin continues to trend upwardsBut transaminases improving no diarrhea reported today vital signs Vital Sign Date Time Temp Pulse Resp B/P (MAP) Pulse Ox O2 Delivery O2 Flow Rate FiO2 05/27/24 20:19 115 22 117/61 (79) 95 30 05/27/24 18:00 Mechanical Ventilator+ 05/27/24 16:00 97.8 97.8 Total Intake and Output 05/26/24 05/26/24 05/27/24 15:00 23:00 07:00 Intake Total 587.504 ml 1406.628 ml 981.830 ml Output Total 1200 ml 825 ml Balance 587.504 ml 206.628 ml 156.830 ml medications Current Medications Medications Dose Ordered Sig/Kenisha Route Start Time Stop Time Status Last Admin Dose Admin Sodium Chloride 10 ml Q8HR IV 05/07/24 06:00 05/27/24 14:57 10 ML Ondansetron HCl 4 mg Q4HP PRN IV 05/06/24 22:15 Pantoprazole Sodium 40 mg BID IV 05/08/24 22:00 05/27/24 10:20 40 MG Thiamine HCl 100 mg DAILY IV 05/10/24 10:00 05/27/24 10:21 100 MG Flecainide Acetate 100 mg Q12HR PO 05/09/24 22:00 05/27/24 10:34 100 MG Folic Acid 1 mg DAILY PO 05/11/24 10:00 05/27/24 10:34 1 MG Diagnostic Test (Pha) 1 strip Q6HR 05/10/24 18:00 05/27/24 18:15 1 STRIP Insulin Human Regular FOLLOW SLIDING SCALE Q6HR SC 05/10/24 18:00 05/27/24 18:17 4 UNITS Dextrose 50 ml UD IV 05/10/24 17:15 Sodium Chloride 10 ml QSHIFT@10,22 IV 05/13/24 22:00 05/27/24 10:35 10 ML Fentanyl Citrate 250 ml @ 2.5 mls/hr Q24H IV 05/14/24 04:45 05/27/24 01:21 32.5 MLS/HR Albuterol 2.5 mg Q4HR NEB 05/15/24 14:00 05/27/24 18:43 2.5 MG Ipratropium [place] 0.5 mg Q4HR NEB 05/15/24 14:00 05/27/24 18:43 0.5 MG Phenylephrine HCl 80 mg/Sodium Chloride 250 ml @ 7.5 mls/hr Q24H IV 05/16/24 11:15 Norepinephrine Bitartrate 32 mg/ Sodium Chloride 250 ml @ 0.938 mls/ hr Q24H IV 05/16/24 11:15 05/27/24 12:57 5.625 MLS/HR Enteral Nutritional Formula 1,000 ml 30ML/HR GT 05/22/24 06:30 05/22/24 14:59 1,000 ML Nystatin 1 applic BID TOP 05/23/24 22:00 05/27/24 10:35 1 APPLIC Ceftazidime Sodium 2.5 gm/ Dextrose 100 ml @ 50 mls/hr Q8H IV 05/23/24 18:00 05/27/24 18:14 50 MLS/HR Metoclopramide HCl 5 mg BID IV 05/23/24 22:00 05/27/24 10:23 5 MG Midazolam HCl 50 ml @ 1 mls/hr Q24H IV 05/24/24 03:00 05/27/24 02:42 5 MLS/HR Vancomycin HCl 0 ml @ 0 mls/hr UD IV 05/24/24 10:00 Octreotide Acetate 100 mcg TID SUBCUT 05/24/24 14:00 05/27/24 14:58 100 MCG Purified Water 200 ml Q6HR GT 05/24/24 18:00 05/27/24 18:15 200 ML Ursodiol 300 mg TID PO 05/25/24 14:00 05/27/24 14:57 300 MG Micafungin Sodium 100 mg/Sodium Chloride 100 ml @ 100 mls/hr DAILY IV 05/26/24 10:00 05/27/24 10:23 100 MLS/HR Lactulose 30 ml Q6HR NG 05/26/24 00:00 05/27/24 18:15 30 ML Methylprednisolone Sodium Succinate 20 mg BID IV 05/26/24 22:00 05/27/24 10:20 20 MG objective General: Intubated sedated HEENT: NC/AT EOMI dry mucous membranes Heart: Tachycardic regular rhythm Abdomen: Soft nontender nondistended Extremity: No clubbing cyanosis or edema laboratory and microbiology Laboratory Tests 05/27/24 03:30 05/27/24 00:48 Test 05/27/24 03:30 Range/Units Serum Glucose 215 H 74-106 mg/dL Problems(with codes): (1) Jaundice (2) MRSA (methicillin resistant Staphylococcus aureus) septicemia (3) Hepatitis C (4) Liver failure (5) Cirrhosis (6) Ascites (7) Anemia, unspecified (8) Generalized weakness (9) Transaminitis (10) Altered mental status Prognosis Plan - continue Tube feeding at 30 mL/hour - Protonix 40 mg IV b.i.d. - Ursodiol 300 mg t.i.d. - on methylprednisolone 20 mg b.i.d. for suspected alcoholic liver cirrhosis - 05/27- albumin and lasix were given as patient had pedal edema and worsening pleural effusion patient's is concerned about the patient not getting off sedation or getting a CPAP trial Dietary Evaluation Review Comments: 1. Per RN, pt is able to drink liquid but unable to manage jello. Will Downgrade his CCHO-60 diet to pureed texture. 2. offer Glucern BID if PO is still poor 3. elevated BUN, f/u and reassess after pt has a GI and nephrology consult. 4. consider clinimix as a form of protein supplementation as pt has very low albumin. Expected Outcomes/Goals: Gradual wt loss, better DM control. Plan discussed with: Other (None) PAULINA BAINS MD May 27, 2024 20:26
[2024-05-28] VITALS (107 sets, daily range): BP systolic 67–134; BP diastolic 18–86; PULSE 112–119; RESP 12–24; TEMP 97.6–98.2; O2SAT 91–100
[2024-05-28 04:22] LABS: Basophils # (auto) 0 10 ^3/uL (0-0.2); Eosinophils # (auto) 0 10 ^3/uL (0-0.8); Hematocrit 27.1 % (41.0-53.0); Hemoglobin 8.6 g/dL (13.5-17.5); Lymphocytes # (auto) 0.3 10 ^3/uL (0.4-5.4); Lymphocytes % (auto) 2.6 % (10.0-50.0); Mean Corpuscular Hemoglobin 30.4 pg (28.0-32.0); Mean Corpuscular Hgb Conc. 31.9 g/dL (32.0-36.0); Mean Corpuscular Volume 95.2 fL (80.0-100.0); Monocytes # (auto) 0.5 10 ^3/uL (0-1.3); Monocytes % (auto) 4.5 % (0.0-12.0); Neutrophils # (auto) 11.3 10 ^3/uL (1.6-8.6); Neutrophils % (auto) 92.9 % (37.0-80.0); Platelet Count (auto) 98 10^3/uL (140-450); Red Blood Cells 2.84 10^6/uL (4.5-5.90); White Blood Cell 12.1 10^3/uL (4.4-10.8)
[2024-05-28 04:35] LABS: Anion Gap 11 (5-15); Calcium 9.9 mg/dL (8.7-10.4); Carbon Dioxide 24 mmol/L (20-31); Potassium 3.7 mmol/L (3.5-5.1); Sodium 142 mmol/L (136-145)
[2024-05-28 04:40] LABS: Chloride 107 mmol/L (98-107)
[2024-05-28 04:41] LABS: Albumin 2.6 g/dL (3.2-4.8); Alkaline Phosphatase 287 U/L (46-116); Bilirubin, Total 26.6 mg/dL (0.2-1.0); Glucose 200 mg/dL (74-106); Magnesium 2.8 mg/dL (1.6-2.6)
[2024-05-28 05:50] LABS: BUN/Creatinine Ratio 36.8 (10.0-20.0)
[2024-05-28 05:56] LABS: Alanine Aminotransferase 82 U/L (7-40); Aspartate Aminotransferase 94 U/L (13-40); Blood Urea Nitrogen 78 mg/dL (9-23); Total Protein 5.5 g/dL (5.7-8.2)
--- NOTE | 2024-05-28 06:39 | DVH ---
INDICATION: sob TECHNIQUE: Frontal view of the chest. COMPARISON: XY CHEST XRAY 1 VIEW on DOS: 05/27/24, XY CHEST XRAY 1 VIEW on DOS: 05/26/24, XY CHEST XRAY 1 VIEW on DOS: 05/24/24, XY CHEST PORTABLE on DOS: 05/23/24, XY CHEST PORTABLE on DOS: 05/22/24, XY CHEST XRAY 1 VIEW on DOS: 05/27/24 FINDINGS: LUNGS AND PLEURAL SPACES: Pulmonary venous congestion. Right pleural effusion. No consolidation. No pneumothorax. HEART: Unremarkable. No cardiomegaly. MEDIASTINUM: Unremarkable. Normal mediastinal contour. BONES/JOINTS: Unremarkable. No acute fracture. TUBES, LINES AND DEVICES: Right internal jugular central venous catheter tip in the superior vena c otf. The endotracheal tube (ETT) is in satisfactory position. IMPRESSION: 1. Pulmonary venous congestion. 2. Right pleural effusion.
[2024-05-28 06:49] LABS: Anisocytosis Slight
[2024-05-28 06:50] LABS: Large Platelets FEW; Ovalocytes FEW; Platelet Estimate Decrea; Tear Drop Cells FEW
[2024-05-28 06:54] LABS: Base Excess -2.9 mmol/L (-2.0-3.0)
--- NOTE | 2024-05-28 09:25 | DVHPN2 ---
Subjective Patient unresponsive Reviewed: Care Plan, H&P, Labs, Medications, Previous Orders, Radiology, Other (Consultations) Changes from previous H/P or p: No Changes General: Per HPI Objective Vitals Vital Signs Date Time Temp Pulse Resp B/P (MAP) Pulse Ox O2 Delivery O2 Flow Rate FiO2 05/28/24 06:45 116 22 98/59 (72) 93 05/28/24 06:12 30 05/28/24 06:00 Mechanical Ventilator+ 05/28/24 04:00 98.0 98.0 Intake/Output Intake and Output 05/28/24 07:00 Intake Total 1298.787 ml Output Total 1225 ml Balance 73.787 ml Intake Oral 600 ml IV Total 698.787 ml Output Urine Total 1125 ml Stool Total 100 ml General Appearance: moderate distress, Other (Encephalopathic) HEENT: Atraumatic, Other (NG tube in place) Lungs: Other (Decreased air entry bilateral with decreased respiratory rate) Cardiovascular: Normal S1, Normal S2, No murmurs, Other (Tachycardia) Abdomen: Normal bowel sounds, Soft, Other (Ventral hernia; reducible; no ascites palpated) Genitourinary: Other (Junior's) Extremities: Normal pulses, Other (Stasis changes of the skin of lower extremities with nonpitting edema) Neuro: Other (Lethargic; opening eyes to painful stimuli) Skin: Dry, Intact Psych/Mental Status: Other (Lethargic) Medications Current Medications Medications Dose Ordered Sig/Kenisha Route Start Time Stop Time Status Last Admin Dose Admin Sodium Chloride 10 ml Q8HR IV 05/07/24 06:00 05/28/24 06:01 10 ML Ondansetron HCl 4 mg Q4HP PRN IV 05/06/24 22:15 Pantoprazole Sodium 40 mg BID IV 05/08/24 22:00 05/27/24 21:55 40 MG Thiamine HCl 100 mg DAILY IV 05/10/24 10:00 05/27/24 10:21 100 MG Flecainide Acetate 100 mg Q12HR PO 05/09/24 22:00 05/27/24 21:57 100 MG Folic Acid 1 mg DAILY PO 05/11/24 10:00 05/27/24 10:34 1 MG Diagnostic Test (Pha) 1 strip Q6HR 05/10/24 18:00 05/28/24 06:01 1 STRIP Insulin Human Regular FOLLOW SLIDING SCALE Q6HR SC 05/10/24 18:00 05/28/24 06:04 4 UNITS Dextrose 50 ml UD IV 05/10/24 17:15 Sodium Chloride 10 ml QSHIFT@10,22 IV 05/13/24 22:00 05/27/24 10:35 10 ML Fentanyl Citrate 250 ml @ 2.5 mls/hr Q24H IV 05/14/24 04:45 05/27/24 01:21 32.5 MLS/HR Albuterol 2.5 mg Q4HR NEB 05/15/24 14:00 05/28/24 06:12 2.5 MG Ipratropium [place] 0.5 mg Q4HR NEB 05/15/24 14:00 05/28/24 06:12 0.5 MG Phenylephrine HCl 80 mg/Sodium Chloride 250 ml @ 7.5 mls/hr Q24H IV 05/16/24 11:15 Norepinephrine Bitartrate 32 mg/ Sodium Chloride 250 ml @ 0.938 mls/ hr Q24H IV 05/16/24 11:15 05/27/24 12:57 5.625 MLS/HR Enteral Nutritional Formula 1,000 ml 30ML/HR GT 05/22/24 06:30 05/22/24 14:59 1,000 ML Nystatin 1 applic BID TOP 05/23/24 22:00 05/27/24 21:57 1 APPLIC Ceftazidime Sodium 2.5 gm/ Dextrose 100 ml @ 50 mls/hr Q8H IV 05/23/24 18:00 05/28/24 01:41 50 MLS/HR Metoclopramide HCl 5 mg BID IV 05/23/24 22:00 05/27/24 21:56 5 MG Midazolam HCl 50 ml @ 1 mls/hr Q24H IV 05/24/24 03:00 05/27/24 02:42 5 MLS/HR Vancomycin HCl 0 ml @ 0 mls/hr UD IV 05/24/24 10:00 Octreotide Acetate 100 mcg TID SUBCUT 05/24/24 14:00 05/28/24 06:03 100 MCG Purified Water 200 ml Q6HR GT 05/24/24 18:00 05/28/24 06:01 200 ML Ursodiol 300 mg TID PO 05/25/24 14:00 05/28/24 06:01 300 MG Micafungin Sodium 100 mg/Sodium Chloride 100 ml @ 100 mls/hr DAILY IV 05/26/24 10:00 05/27/24 10:23 100 MLS/HR Lactulose 30 ml Q6HR NG 05/26/24 00:00 05/28/24 06:01 30 ML Methylprednisolone Sodium Succinate 20 mg BID IV 05/26/24 22:00 05/27/24 21:55 20 MG Laboratory Results Laboratory Tests 05/28/24 03:59 Chemistry Test 05/28/24 03:59 Albumin 2.6 g/dL (3.2-4.8) L Calcium Level 9.9 mg/dL (8.7-10.4) Magnesium Level 2.8 mg/dL (1.6-2.6) H Total Protein 5.5 g/dL (5.7-8.2) L LFT Test 05/28/24 03:59 Alanine Aminotransferase (ALT) 82 U/L (7-40) H Alkaline Phosphatase 287 U/L (46-116) H Aspartate Amino Transferase (AST) 94 U/L (13-40) H Total Bilirubin 26.6 mg/dL (0.2-1.0) H Urinalysis Test 05/07/24 01:30 05/23/24 12:30 Urine Mucus Few (None Seen) Urine Color Dark-yellow (Yellow) Urine Clarity Clear (Clear) Urine pH 5.5 (5.0-9.0) Urine Specific [place] 1.010 (1.001-1.035) Urine Protein Negative (Negative) Urine Ketones Negative (Negative) Urine Blood 2+ /uL (Negative) H Urine Nitrite Negative (Negative) Urine Bilirubin 2+ (Negative) Urine Urobilinogen Normal mg/dL (Negative) Urine Leukocyte Esterase Negative /uL (Negative) Urine RBC 26 /hpf (0 - 3) Urine Microscopic WBC 2 /HPF (0-3) Urine Squamous Epithelial Cells Few /hpf (<5) Urine Bacteria Few /hpf (None Seen) H Urine Hyaline Casts Few /lpf (0 - 2) Urine Yeast (Budding) Occasional /hpf (None Urine Creatinine 26.09 mg/dL (30.0-125.0) L Urine Protein/Creatinine Ratio 0.94 Urine Sodium 54 mmol/L (40-220) Urine Glucose Normal mg/dL (Normal) Urine Total Protein 24.5 mg/dL (1-14) H Blood Gas Results Test 05/28/24 06:50 Arterial Blood pH 7.323 (7.350-7.450) FiO2 % 30.0 Microbiology Microbiology Date/Time Source Procedure Growth Status 05/26/24 16:23 Blood Blood Culture - Preliminary NO GROWTH AFTER 24 HOURS OF INCUBATION. Resulted 05/23/24 16:00 Sputum Gram Stain - Final Complete 05/23/24 16:00 Respiratory Culture - Final Staphylococcus haemolyticus Presumptive Clara albicans Complete 05/23/24 12:30 Urine - [place] Port Urine Culture - Final Complete 05/13/24 14:00 Nose MRSA Screen - Final Complete Labs and/or images reviewed: Labs reviewed by me, Image(s) reviewed by me Assessment/Plan Assessment/Plan Impression: -acute hypoxic respiratory failure with mechanical ventilation -metabolic encephalopathy, probable toxic etiology -probable aspiration pneumonia -acute kidney injury, vasomotor nephropathy. Severe azotemia -? GI bleed -hyponatremia -cirrhosis of the liver -sepsis -he was beyond the urine -obesity -anemia of chronic disease -thrombocytopenia Plan: -events: Patient with persistent hypernatremia, altered mental status. -continue current ventilator settings -nephrology consultation: Recommendations reviewed -restart Lasix -start midodrine -continue current antibiotic therapy -PUD, DVT prophylaxis -repeat labs and chest x-ray in a.m. Critical care time spent with patient discussing and formulating plan of care: 40 minutes. This does not include time spent performing procedures. This medical document was created using an electronic medical record system with [employer] dictation system. Although this document has been carefully reviewed, there may still be some phonetic and typographical errors. These areas are purely typographical due to imperfections of the software programs, and do not reflect any compromise in the patient's medical care. Plan discussed with: Patient, Other (RN) My Orders Orders - BAL GARCIA OFFICE ASSISTANT RECEPTIONIST Procedure Category Date Status Time Midodrine Tablet PHA 05/28/24 Transmitted (Proamatine Tablet) 12:00 Furosemide Injection PHA 05/28/24 Transmitted (Lasix Injection) 10:00 Chest Portable XY 05/31/24 Logged 05:00 Abg W/ Co-Ox RT 05/29/24 Logged 05:00 Abg W/ Co-Ox RT 05/30/24 Logged 05:00 Abg W/ Co-Ox RT 05/31/24 Logged 05:00 Comprehensive LAB 05/29/24 Verified Metabolic Panel 05:00 Comprehensive LAB 05/30/24 Verified Metabolic Panel 05:00 Comprehensive LAB 05/31/24 Verified Metabolic Panel 05:00 Complete Blood Count LAB 05/29/24 Verified 05:00 Complete Blood Count LAB 05/30/24 Verified 05:00 Complete Blood Count LAB 05/31/24 Verified 05:00 Chest Portable XY 05/29/24 Logged 05:00 Chest Portable XY 05/30/24 Logged 05:00 Date of Service: May 28, 2024 Billing Provider: BAL GARCIA NP Common Visit Codes: [id number] CARE 30-74 MIN BAL GARCIA NP May 28, 2024 09:25
[2024-05-28] MEDS: FUROSEMIDE 20 MG/2 ML VIAL IV SCH (09:55)
--- NOTE | 2024-05-28 10:56 | DVHPN2 ---
Progress Note Date Seen: May 28, 2024 Medical Necessity Reason Pt with a Central, PICC or Fol: Yes The following are medically ne: PICC Line, Mcduffie Catheter Reason for mcduffie catheter: Strict I&O Subjective Review of Systems: RESPIRATORY:Abnormal Other Systems: Patient seen and examined by myself today in follow-up Patient remained intubated on ventilator Objective vital signs Vital Sign Date Time Temp Pulse Resp B/P (MAP) Pulse Ox O2 Delivery O2 Flow Rate FiO2 05/28/24 10:15 119 23 96/59 (71) 93 05/28/24 10:00 Mechanical Ventilator+ 30 30 05/28/24 08:00 97.6 97.6 Total Intake and Output 05/27/24 05/27/24 05/28/24 15:00 23:00 07:00 Intake Total 267.001 ml 271.051 ml 760.735 ml Output Total 450 ml 775 ml Balance 267.001 ml -178.949 ml -14.265 ml medications Current Medications Medications Dose Ordered Sig/Kenisha Route Start Time Stop Time Status Last Admin Dose Admin Sodium Chloride 10 ml Q8HR IV 05/07/24 06:00 05/28/24 06:01 10 ML Ondansetron HCl 4 mg Q4HP PRN IV 05/06/24 22:15 Pantoprazole Sodium 40 mg BID IV 05/08/24 22:00 05/28/24 09:50 40 MG Thiamine HCl 100 mg DAILY IV 05/10/24 10:00 05/28/24 09:55 100 MG Flecainide Acetate 100 mg Q12HR PO 05/09/24 22:00 05/28/24 10:01 100 MG Folic Acid 1 mg DAILY PO 05/11/24 10:00 05/28/24 10:00 1 MG Diagnostic Test (Pha) 1 strip Q6HR 05/10/24 18:00 05/28/24 06:01 1 STRIP Insulin Human Regular FOLLOW SLIDING SCALE Q6HR SC 05/10/24 18:00 05/28/24 06:04 4 UNITS Dextrose 50 ml UD IV 05/10/24 17:15 Sodium Chloride 10 ml QSHIFT@10,22 IV 05/13/24 22:00 05/28/24 09:56 10 ML Albuterol 2.5 mg Q4HR NEB 05/15/24 14:00 05/28/24 09:34 2.5 MG Ipratropium [place] 0.5 mg Q4HR NEB 05/15/24 14:00 05/28/24 09:34 0.5 MG Phenylephrine HCl 80 mg/Sodium Chloride 250 ml @ 7.5 mls/hr Q24H IV 05/16/24 11:15 Norepinephrine Bitartrate 32 mg/ Sodium Chloride 250 ml @ 0.938 mls/ hr Q24H IV 05/16/24 11:15 05/27/24 12:57 5.625 MLS/HR Enteral Nutritional Formula 1,000 ml 30ML/HR GT 05/22/24 06:30 05/22/24 14:59 1,000 ML Nystatin 1 applic BID TOP 05/23/24 22:00 05/28/24 09:56 1 APPLIC Metoclopramide HCl 5 mg BID IV 05/23/24 22:00 05/28/24 09:56 5 MG Midazolam HCl 50 ml @ 1 mls/hr Q24H IV 05/24/24 03:00 05/27/24 02:42 5 MLS/HR Vancomycin HCl 0 ml @ 0 mls/hr UD IV 05/24/24 10:00 Octreotide Acetate 100 mcg TID SUBCUT 05/24/24 14:00 05/28/24 06:03 100 MCG Ursodiol 300 mg TID PO 05/25/24 14:00 05/28/24 06:01 300 MG Micafungin Sodium 100 mg/Sodium Chloride 100 ml @ 100 mls/hr DAILY IV 05/26/24 10:00 05/28/24 09:57 100 MLS/HR Lactulose 30 ml Q6HR NG 05/26/24 00:00 05/28/24 06:01 30 ML Methylprednisolone Sodium Succinate 20 mg BID IV 05/26/24 22:00 05/28/24 09:50 20 MG Midodrine 10 mg TID@0600,1200,1800 PO 05/28/24 12:00 Furosemide 20 mg DAILY IV 05/28/24 10:00 05/28/24 09:55 20 MG Examination: LUNGS:Normal, CVS:Normal, MSK:Normal laboratory and microbiology Laboratory Tests 05/28/24 03:59 Test 05/28/24 03:59 Range/Units Serum Glucose 200 H 74-106 mg/dL Microbiology Date/Time Source Procedure Growth Status 05/26/24 16:23 Blood Blood Culture - Preliminary NO GROWTH AFTER 24 HOURS OF INCUBATION. Resulted 05/23/24 16:00 Sputum Gram Stain - Final Complete 05/23/24 16:00 Respiratory Culture - Final Staphylococcus haemolyticus Presumptive Clara albicans Complete 05/23/24 12:30 Urine - [place] Urine Culture - Final Complete 05/13/24 14:00 Nose MRSA Screen - Final Complete Problem List/Assessment/Plan Problem List/Assessment/Plan Acute kidney injury superimposed Chronic Kidney Disease stage IIIB secondary to hemodynamically mediated ATN, FeNa > 2% Acute respiratory failure, intubated on ventilator Aspiration pneumonia Septic shock Hypernatremia due to insensible water loss Hepatic encephalopathy Decompensated liver cirrhosis Acute methamphetamine intoxication heavy alcoholism Hepatitis-C Multidrug resistant ESBL urinary tract infection Recommendations Kidney function stabilize stage IIIB Increased urine output Hypernatremia appropriately resolved Mcduffie catheter Strict I&Os I agree with hypotonic IVF hydration IV Levophed for blood pressure support Octreotide Free water IV antibiotics We will continue to follow Plan discussed with: Other (Nurse) Dietary Evaluation Review Comments: 1. Per RN, pt is able to drink liquid but unable to manage jello. Will Downgrade his CCHO-60 diet to pureed texture. 2. offer Glucern BID if PO is still poor 3. elevated BUN, f/u and reassess after pt has a GI and nephrology consult. 4. consider clinimix as a form of protein supplementation as pt has very low albumin. Expected Outcomes/Goals: Gradual wt loss, better DM control. MELISA MORGAN MD May 28, 2024 10:56
[2024-05-28] MEDS: MIDODRINE HCL 10 MG TAB PO SCH (11:46)
--- NOTE | 2024-05-28 11:48 | DVHPN2 ---
Progress Note - Dictate Date Seen: May 28, 2024 Medical Necessity Reason Pt with a Central, PICC or Fol: Yes The following are medically ne: PICC Line, Mcduffie Catheter Reason for mcduffie catheter: Strict I&O Subjective Covering for Dr. Romero Patient seen and examined Overnight events reviewed vital signs Vital Sign Date Time Temp Pulse Resp B/P (MAP) Pulse Ox O2 Delivery O2 Flow Rate FiO2 05/28/24 10:15 119 23 96/59 (71) 93 05/28/24 10:00 Mechanical Ventilator+ 30 30 05/28/24 08:00 97.6 97.6 Total Intake and Output 05/27/24 05/27/24 05/28/24 15:00 23:00 07:00 Intake Total 267.001 ml 271.051 ml 760.735 ml Output Total 450 ml 775 ml Balance 267.001 ml -178.949 ml -14.265 ml medications Current Medications Medications Dose Ordered Sig/Kenisha Route Start Time Stop Time Status Last Admin Dose Admin Sodium Chloride 10 ml Q8HR IV 05/07/24 06:00 05/28/24 06:01 10 ML Ondansetron HCl 4 mg Q4HP PRN IV 05/06/24 22:15 Pantoprazole Sodium 40 mg BID IV 05/08/24 22:00 05/28/24 09:50 40 MG Thiamine HCl 100 mg DAILY IV 05/10/24 10:00 05/28/24 09:55 100 MG Flecainide Acetate 100 mg Q12HR PO 05/09/24 22:00 05/28/24 10:01 100 MG Folic Acid 1 mg DAILY PO 05/11/24 10:00 05/28/24 10:00 1 MG Diagnostic Test (Pha) 1 strip Q6HR 05/10/24 18:00 05/28/24 06:01 1 STRIP Insulin Human Regular FOLLOW SLIDING SCALE Q6HR SC 05/10/24 18:00 05/28/24 06:04 4 UNITS Dextrose 50 ml UD IV 05/10/24 17:15 Sodium Chloride 10 ml QSHIFT@10,22 IV 05/13/24 22:00 05/28/24 09:56 10 ML Albuterol 2.5 mg Q4HR NEB 05/15/24 14:00 05/28/24 09:34 2.5 MG Ipratropium [place] 0.5 mg Q4HR NEB 05/15/24 14:00 05/28/24 09:34 0.5 MG Phenylephrine HCl 80 mg/Sodium Chloride 250 ml @ 7.5 mls/hr Q24H IV 05/16/24 11:15 Norepinephrine Bitartrate 32 mg/ Sodium Chloride 250 ml @ 0.938 mls/ hr Q24H IV 05/16/24 11:15 05/27/24 12:57 5.625 MLS/HR Enteral Nutritional Formula 1,000 ml 30ML/HR GT 05/22/24 06:30 05/22/24 14:59 1,000 ML Nystatin 1 applic BID TOP 05/23/24 22:00 05/28/24 09:56 1 APPLIC Metoclopramide HCl 5 mg BID IV 05/23/24 22:00 05/28/24 09:56 5 MG Midazolam HCl 50 ml @ 1 mls/hr Q24H IV 05/24/24 03:00 05/27/24 02:42 5 MLS/HR Vancomycin HCl 0 ml @ 0 mls/hr UD IV 05/24/24 10:00 Octreotide Acetate 100 mcg TID SUBCUT 05/24/24 14:00 05/28/24 06:03 100 MCG Ursodiol 300 mg TID PO 05/25/24 14:00 05/28/24 06:01 300 MG Micafungin Sodium 100 mg/Sodium Chloride 100 ml @ 100 mls/hr DAILY IV 05/26/24 10:00 05/28/24 09:57 100 MLS/HR Lactulose 30 ml Q6HR NG 05/26/24 00:00 05/28/24 06:01 30 ML Methylprednisolone Sodium Succinate 20 mg BID IV 05/26/24 22:00 05/28/24 09:50 20 MG Midodrine 10 mg TID@0600,1200,1800 PO 05/28/24 12:00 Furosemide 20 mg DAILY IV 05/28/24 10:00 05/28/24 09:55 20 MG laboratory and microbiology Laboratory Tests 05/28/24 03:59 Test 05/28/24 03:59 Range/Units Serum Glucose 200 H 74-106 mg/dL Assessment/Plan Impression Acute hypoxemic respiratory failure Hepatic encephalopathy Hx of substance abuse Aspiration pneumonia Liver disease Patient seen and examined in ICU Events On mechanical ventilation S/p intubation PEEP 5, FiO2 30% Significant difficulties weaning Patient persistently altered Labs and imaging reviewed ABG reviewed Management Vent support Titrate to maintain sats 90% or above Sedation holiday daily If patient follows commands, proceed to weaning trial Pressure support 08/20, extubate when ready Continue antibiotics Bronchodilators Monitor renal function Monitor electrolytes Supplement as needed Pressors as needed for hemodynamic support To maintain a mean arterial pressure of 65 mmHg DVT prophylaxis Critical care time 35 minutes Dietary Evaluation Review Comments: 1. Per RN, pt is able to drink liquid but unable to manage jello. Will Downgrade his CCHO-60 diet to pureed texture. 2. offer Glucern BID if PO is still poor 3. elevated BUN, f/u and reassess after pt has a GI and nephrology consult. 4. consider clinimix as a form of protein supplementation as pt has very low albumin. Expected Outcomes/Goals: Gradual wt loss, better DM control. Plan discussed with: Other (Rn) DANELLE STUART MD May 28, 2024 11:48
--- NOTE | 2024-05-28 23:39 | DVHPN2 ---
Progress Note - Dictate Date Seen: May 28, 2024 Medical Necessity Reason Pt with a Central, PICC or Fol: Yes The following are medically ne: PICC Line, Mcduffie Catheter Reason for mcduffie catheter: Strict I&O Subjective No new complaints, patient is still intubated sedated in ICU No bowel movement recorded, patient is still has flexi Seal Patient's NG tube feedings were held two days ago because of high gastric residuals and some regurgitation of the feedings Liver enzymes are finally starting to trend downwards and leukocytosis is improved vital signs Vital Sign Date Time Temp Pulse Resp B/P (MAP) Pulse Ox O2 Delivery O2 Flow Rate FiO2 05/28/24 22:17 113 20 134/86 (102) 95 30 05/28/24 22:00 Mechanical Ventilator+ 05/28/24 16:00 98.2 98.2 Total Intake and Output 05/27/24 05/27/24 05/28/24 15:00 23:00 07:00 Intake Total 267.001 ml 271.051 ml 764.485 ml Output Total 450 ml 775 ml Balance 267.001 ml -178.949 ml -10.515 ml medications Current Medications Medications Dose Ordered Sig/Kenisha Route Start Time Stop Time Status Last Admin Dose Admin Sodium Chloride 10 ml Q8HR IV 05/07/24 06:00 05/28/24 22:22 10 ML Ondansetron HCl 4 mg Q4HP PRN IV 05/06/24 22:15 Pantoprazole Sodium 40 mg BID IV 05/08/24 22:00 05/28/24 22:21 40 MG Thiamine HCl 100 mg DAILY IV 05/10/24 10:00 05/28/24 09:55 100 MG Flecainide Acetate 100 mg Q12HR PO 05/09/24 22:00 05/28/24 22:21 100 MG Folic Acid 1 mg DAILY PO 05/11/24 10:00 05/28/24 10:00 1 MG Diagnostic Test (Pha) 1 strip Q6HR 05/10/24 18:00 05/28/24 17:25 1 STRIP Insulin Human Regular FOLLOW SLIDING SCALE Q6HR SC 05/10/24 18:00 05/28/24 17:25 4 UNITS Dextrose 50 ml UD IV 05/10/24 17:15 Sodium Chloride 10 ml QSHIFT@,22 IV 05/13/24 22:00 05/28/24 09:56 10 ML Albuterol 2.5 mg Q4HR NEB 05/15/24 14:00 05/28/24 22:16 2.5 MG Ipratropium [place] 0.5 mg Q4HR NEB 05/15/24 14:00 05/28/24 22:16 0.5 MG Phenylephrine HCl 80 mg/Sodium Chloride 250 ml @ 7.5 mls/hr Q24H IV 05/16/24 11:15 Norepinephrine Bitartrate 32 mg/ Sodium Chloride 250 ml @ 0.938 mls/ hr Q24H IV 05/16/24 11:15 05/28/24 22:23 3.75 MLS/HR Enteral Nutritional Formula 1,000 ml 30ML/HR GT 05/22/24 06:30 05/22/24 14:59 1,000 ML Nystatin 1 applic BID TOP 05/23/24 22:00 05/28/24 22:22 1 APPLIC Metoclopramide HCl 5 mg BID IV 05/23/24 22:00 05/28/24 22:21 5 MG Midazolam HCl 50 ml @ 1 mls/hr Q24H IV 05/24/24 03:00 05/27/24 02:42 5 MLS/HR Vancomycin HCl 0 ml @ 0 mls/hr UD IV 05/24/24 10:00 Octreotide Acetate 100 mcg TID SUBCUT 05/24/24 14:00 05/28/24 22:23 100 MCG Ursodiol 300 mg TID PO 05/25/24 14:00 05/28/24 22:21 300 MG Micafungin Sodium 100 mg/Sodium Chloride 100 ml @ 100 mls/hr DAILY IV 05/26/24 10:00 05/28/24 09:57 100 MLS/HR Lactulose 30 ml Q6HR NG 05/26/24 00:00 05/28/24 17:21 30 ML Methylprednisolone Sodium Succinate 20 mg BID IV 05/26/24 22:00 05/28/24 22:22 20 MG Midodrine 10 mg TID@0600,1200,1800 PO 05/28/24 12:00 05/28/24 17:21 10 MG Furosemide 20 mg DAILY IV 05/28/24 10:00 05/28/24 09:55 20 MG objective General: Intubated sedated HEENT: NC/AT EOMI dry mucous membranes Heart: Tachycardic regular rhythm Abdomen: Soft nontender nondistended Extremity: No clubbing cyanosis or edema laboratory and microbiology Laboratory Tests 05/28/24 03:59 Test 05/28/24 03:59 Range/Units Serum Glucose 200 H 74-106 mg/dL Problems(with codes): (1) Jaundice (2) Aspiration pneumonia (3) Hepatitis C (4) Liver failure (5) Cirrhosis (6) Ascites (7) Pulmonary vascular congestion (8) Anemia, unspecified (9) Generalized weakness (10) Hepatic encephalopathy (11) Altered mental status Prognosis Plan We will try to remove the rectal tube and see if that helps improve his bowel activity Continue oral lactulose Resume enteral tube feedings at 10-20 mL/hour trickle feedings Monitor labs Prognosis remains guarded Dietary Evaluation Review Comments: 1. Per RN, pt is able to drink liquid but unable to manage jello. Will Downgrade his CCHO-60 diet to pureed texture. 2. offer Glucern BID if PO is still poor 3. elevated BUN, f/u and reassess after pt has a GI and nephrology consult. 4. consider clinimix as a form of protein supplementation as pt has very low albumin. Expected Outcomes/Goals: Gradual wt loss, better DM control. Plan discussed with: Other (ICU Nurse) PAULINA BAINS MD May 28, 2024 23:39
[2024-05-29] VITALS (106 sets, daily range): BP systolic 87–123; BP diastolic 45–79; PULSE 104–116; RESP 8–24; TEMP 97–98; O2SAT 91–100
[2024-05-29 03:53] LABS: Basophils # (auto) 0 10 ^3/uL (0-0.2); Basophils % (auto) 0.1 % (0.0-2.0); Eosinophils # (auto) 0 10 ^3/uL (0-0.8); Hematocrit 28.2 % (41.0-53.0); Hemoglobin 8.8 g/dL (13.5-17.5); Lymphocytes # (auto) 0.2 10 ^3/uL (0.4-5.4); Lymphocytes % (auto) 1.9 % (10.0-50.0); Mean Corpuscular Hemoglobin 29.7 pg (28.0-32.0); Mean Corpuscular Hgb Conc. 31.2 g/dL (32.0-36.0); Mean Corpuscular Volume 95.4 fL (80.0-100.0); Monocytes # (auto) 0.5 10 ^3/uL (0-1.3); Neutrophils # (auto) 12.3 10 ^3/uL (1.6-8.6); Nucleated Red Blood Cells % 0.1 %; Platelet Count (auto) 104 10^3/uL (140-450); Red Blood Cells 2.96 10^6/uL (4.5-5.90); White Blood Cell 13.1 10^3/uL (4.4-10.8)
[2024-05-29 04:22] LABS: Anion Gap 13 (5-15); Calcium 9.6 mg/dL (8.7-10.4); Carbon Dioxide 23 mmol/L (20-31)
[2024-05-29 04:34] LABS: Albumin 2.5 g/dL (3.2-4.8); Alkaline Phosphatase 276 U/L (46-116); Bilirubin, Total 25.1 mg/dL (0.2-1.0); Chloride 109 mmol/L (98-107); Glucose 209 mg/dL (74-106); Potassium 3.2 mmol/L (3.5-5.1); Sodium 145 mmol/L (136-145)
[2024-05-29 04:45] LABS: Red Cell Distribution Width 27.7 % (11.8-14.3)
[2024-05-29 04:46] LABS: BUN/Creatinine Ratio 36.4 (10.0-20.0)
[2024-05-29 04:56] LABS: Alanine Aminotransferase 91 U/L (7-40); Aspartate Aminotransferase 92 U/L (13-40); Total Protein 5.5 g/dL (5.7-8.2)
[2024-05-29 04:57] LABS: Blood Urea Nitrogen 91 mg/dL (9-23)
--- NOTE | 2024-05-29 05:45 | DVH ---
CHEST RADIOGRAPH Indication: pna Technique: Single frontal view of the chest was obtained COMPARISON: XY CHEST PORTABLE on DOS: 05/28/24, XY CHEST XRAY 1 VIEW on DOS: 05/27/24, XY CHEST XRAY 1 VIEW on DOS: 05/26/24, XY CHEST XRAY 1 VIEW on DOS: 05/24/24, XY CHEST PORTABLE on DOS: 05/23/24 FINDINGS: Lines and Tubes: Unchanged. Lungs: Stable right pleural effusion and diffuse increased prominence of the pulmonary vasculature. No evidence of consolidation. No pneumothorax. Cardiomediastinal contours: Unremarkable Bones: Unremarkable IMPRESSION: 1. Stable right pleural effusion and diffuse increased prominence of the pulmonary vasculature. 2. Lines and tubes unchanged.
[2024-05-29] MEDS: POTASSIUM CHL 20MEQ/50ML 50 ML IV ONE ×2 (06:24→10:14)
[2024-05-29 06:59] LABS: Anisocytosis Moderate; Platelet Estimate Decreased
[2024-05-29 07:00] LABS: Ovalocytes FEW; Target Cell FEW
--- NOTE | 2024-05-29 08:34 | DVHPN2 ---
Subjective Patient unresponsive Reviewed: Care Plan, H&P, Labs, Medications, Previous Orders, Radiology, Other (Consultations) Changes from previous H/P or p: No Changes General: Per HPI Objective Vitals Vital Signs Date Time Temp Pulse Resp B/P (MAP) Pulse Ox O2 Delivery O2 Flow Rate FiO2 05/29/24 08:00 97.0 113 13 103/63 (76) 95 97.0 05/29/24 08:00 30 05/29/24 08:00 Mechanical Ventilator+ Intake/Output Intake and Output 05/29/24 07:00 Intake Total 422.963 ml Output Total 1200 ml Balance -777.037 ml Intake Oral 240 ml IV Total 182.963 ml Output Urine Total 1200 ml General Appearance: moderate distress, Other (Encephalopathic) HEENT: Atraumatic, Other (NG tube in place) Lungs: Clear to auscultation, Normal air movement, Other (Mechanical ventilation) Cardiovascular: Normal S1, Normal S2, No murmurs, Other (Tachycardia) Abdomen: Normal bowel sounds, Soft, Other (Ventral hernia; reducible; no ascites palpated) Genitourinary: Other (Junior's) Extremities: Normal pulses, Other (Stasis changes of the skin of lower extremities with nonpitting edema) Neuro: Other (Lethargic; opening eyes to painful stimuli) Skin: Dry, Intact, Other (Jaundiced) Psych/Mental Status: Other (Lethargic) Medications Current Medications Medications Dose Ordered Sig/Kenisha Route Start Time Stop Time Status Last Admin Dose Admin Sodium Chloride 10 ml Q8HR IV 05/07/24 06:00 05/29/24 06:00 10 ML Ondansetron HCl 4 mg Q4HP PRN IV 05/06/24 22:15 Pantoprazole Sodium 40 mg BID IV 05/08/24 22:00 05/28/24 22:21 40 MG Thiamine HCl 100 mg DAILY IV 05/10/24 10:00 05/28/24 09:55 100 MG Flecainide Acetate 100 mg Q12HR PO 05/09/24 22:00 05/28/24 22:21 100 MG Folic Acid 1 mg DAILY PO 05/11/24 10:00 05/28/24 10:00 1 MG Diagnostic Test (Pha) 1 strip Q6HR 05/10/24 18:00 05/29/24 06:24 1 STRIP Insulin Human Regular FOLLOW SLIDING SCALE Q6HR SC 05/10/24 18:00 05/29/24 06:27 4 UNITS Dextrose 50 ml UD IV 05/10/24 17:15 Sodium Chloride 10 ml QSHIFT@10,22 IV 05/13/24 22:00 05/28/24 09:56 10 ML Albuterol 2.5 mg Q4HR NEB 05/15/24 14:00 05/29/24 06:21 2.5 MG Ipratropium [place] 0.5 mg Q4HR NEB 05/15/24 14:00 05/29/24 06:21 0.5 MG Phenylephrine HCl 80 mg/Sodium Chloride 250 ml @ 7.5 mls/hr Q24H IV 05/16/24 11:15 Norepinephrine Bitartrate 32 mg/ Sodium Chloride 250 ml @ 0.938 mls/ hr Q24H IV 05/16/24 11:15 05/28/24 22:23 3.75 MLS/HR Enteral Nutritional Formula 1,000 ml 30ML/HR GT 05/22/24 06:30 05/22/24 14:59 1,000 ML Nystatin 1 applic BID TOP 05/23/24 22:00 05/28/24 22:22 1 APPLIC Metoclopramide HCl 5 mg BID IV 05/23/24 22:00 05/28/24 22:21 5 MG Midazolam HCl 50 ml @ 1 mls/hr Q24H IV 05/24/24 03:00 05/27/24 02:42 5 MLS/HR Vancomycin HCl 0 ml @ 0 mls/hr UD IV 05/24/24 10:00 Octreotide Acetate 100 mcg TID SUBCUT 05/24/24 14:00 05/28/24 22:23 100 MCG Ursodiol 300 mg TID PO 05/25/24 14:00 05/29/24 06:24 300 MG Micafungin Sodium 100 mg/Sodium Chloride 100 ml @ 100 mls/hr DAILY IV 05/26/24 10:00 05/28/24 09:57 100 MLS/HR Lactulose 30 ml Q6HR NG 05/26/24 00:00 05/28/24 23:38 30 ML Methylprednisolone Sodium Succinate 20 mg BID IV 05/26/24 22:00 05/28/24 22:22 20 MG Midodrine 10 mg TID@0600,1200,1800 PO 05/28/24 12:00 05/29/24 06:37 10 MG Furosemide 20 mg DAILY IV 05/28/24 10:00 05/28/24 09:55 20 MG Laboratory Results Laboratory Tests 05/29/24 03:30 Chemistry Test 05/29/24 03:30 Albumin 2.5 g/dL (3.2-4.8) L Calcium Level 9.6 mg/dL (8.7-10.4) Total Protein 5.5 g/dL (5.7-8.2) L LFT Test 05/29/24 03:30 Alanine Aminotransferase (ALT) 91 U/L (7-40) H Alkaline Phosphatase 276 U/L (46-116) H Aspartate Amino Transferase (AST) 92 U/L (13-40) H Total Bilirubin 25.1 mg/dL (0.2-1.0) H Urinalysis Test 05/07/24 01:30 05/23/24 12:30 Urine Mucus Few (None Seen) Urine Color Dark-yellow (Yellow) Urine Clarity Clear (Clear) Urine pH 5.5 (5.0-9.0) Urine Specific [place] 1.010 (1.001-1.035) Urine Protein Negative (Negative) Urine Ketones Negative (Negative) Urine Blood 2+ /uL (Negative) H Urine Nitrite Negative (Negative) Urine Bilirubin 2+ (Negative) Urine Urobilinogen Normal mg/dL (Negative) Urine Leukocyte Esterase Negative /uL (Negative) Urine RBC 26 /hpf (0 - 3) Urine Microscopic WBC 2 /HPF (0-3) Urine Squamous Epithelial Cells Few /hpf (<5) Urine Bacteria Few /hpf (None Seen) H Urine Hyaline Casts Few /lpf (0 - 2) Urine Yeast (Budding) Occasional /hpf (None Urine Creatinine 26.09 mg/dL (30.0-125.0) L Urine Protein/Creatinine Ratio 0.94 Urine Sodium 54 mmol/L (40-220) Urine Glucose Normal mg/dL (Normal) Urine Total Protein 24.5 mg/dL (1-14) H Microbiology Microbiology Date/Time Source Procedure Growth Status 05/26/24 16:23 Blood Blood Culture - Preliminary NO GROWTH AFTER 24 HOURS OF INCUBATION. Resulted 05/23/24 16:00 Sputum Gram Stain - Final Complete 05/23/24 16:00 Respiratory Culture - Final Staphylococcus haemolyticus Presumptive Clara albicans Complete 05/23/24 12:30 Urine - [place] Port Urine Culture - Final Complete 05/13/24 14:00 Nose MRSA Screen - Final Complete Labs and/or images reviewed: Labs reviewed by me, Image(s) reviewed by me Assessment/Plan Assessment/Plan Impression: -acute hypoxic respiratory failure with mechanical ventilation -metabolic encephalopathy, probable toxic etiology -probable aspiration pneumonia -acute kidney injury, vasomotor nephropathy. Severe azotemia -? GI bleed -hyponatremia -cirrhosis of the liver -sepsis -he was beyond the urine -obesity -anemia of chronic disease -thrombocytopenia Plan: -events: Long discussion made with the patient's , Lorna. At this time she was still contemplating compassionate extubation versus tracheostomy. -continue current ventilator settings -nephrology consultation: Recommendations reviewed -restart Lasix -continue midodrine -continue current antibiotic therapy -PUD, DVT prophylaxis -repeat labs and chest x-ray in a.m. Critical care time spent with patient discussing and formulating plan of care: 40 minutes. This does not include time spent performing procedures. This medical document was created using an electronic medical record system with [employer] dictation system. Although this document has been carefully reviewed, there may still be some phonetic and typographical errors. These areas are purely typographical due to imperfections of the software programs, and do not reflect any compromise in the patient's medical care. Plan discussed with: Patient, Other (RN) My Orders Orders - BAL GARCIA [employer]INTE[employer]ATOR [employer]EDER Procedure Category Date Status Time Midodrine Tablet PHA 05/28/24 In Process (Proamatine Tablet) 12:00 Furosemide Injection PHA 05/28/24 In Process (Lasix Injection) 10:00 Chest Portable XY 05/31/24 Logged 05:00 Abg W/ Co-Ox RT 05/29/24 Logged 05:00 Abg W/ Co-Ox RT 05/30/24 Logged 05:00 Abg W/ Co-Ox RT 05/31/24 Logged 05:00 Comprehensive LAB 05/30/24 Verified Metabolic Panel 05:00 Comprehensive LAB 05/31/24 Verified Metabolic Panel 05:00 Complete Blood Count LAB 05/30/24 Verified 05:00 Complete Blood Count LAB 05/31/24 Verified 05:00 Chest Portable XY 05/29/24 Resulted 05:00 Chest Portable XY 05/30/24 Verified 05:00 Cpap Trial For Am ORDERS 05/29/24 Transmitted 06:00 Date of Service: May 29, 2024 Billing Provider: BAL GARCIA NP Common Visit Codes: [id number] CARE 30-74 MIN BAL GARCIA NP May 29, 2024 08:34
[2024-05-29 08:49] LABS: Base Excess -1.8 mmol/L (-2.0-3.0)
[2024-05-29] MEDS: VANCOMYCIN 500mg/100mL 100 ML IV ONE (12:15)
--- NOTE | 2024-05-29 12:37 | DVHPN2 ---
Progress Note - Dictate Date Seen: May 29, 2024 Medical Necessity Reason Pt with a Central, PICC or Fol: Yes The following are medically ne: PICC Line, Mcduffie Catheter Reason for mcduffie catheter: Strict I&O Subjective Patient seen and examined Overnight events reviewed vital signs Vital Sign Date Time Temp Pulse Resp B/P (MAP) Pulse Ox O2 Delivery O2 Flow Rate FiO2 05/29/24 10:45 112 16 103/64 (77) 95 05/29/24 10:00 Mechanical Ventilator+ 30 30 05/29/24 08:00 97.0 97.0 Total Intake and Output 05/28/24 05/28/24 05/29/24 15:00 23:00 07:00 Intake Total 130.00 ml 150.00 ml 145.776 ml Output Total 600 ml 600 ml Balance 130.00 ml -450.00 ml -454.224 ml medications Current Medications Medications Dose Ordered Sig/Kenisha Route Start Time Stop Time Status Last Admin Dose Admin Sodium Chloride 10 ml Q8HR IV 05/07/24 06:00 05/29/24 06:00 10 ML Ondansetron HCl 4 mg Q4HP PRN IV 05/06/24 22:15 Pantoprazole Sodium 40 mg BID IV 05/08/24 22:00 05/29/24 09:08 40 MG Thiamine HCl 100 mg DAILY IV 05/10/24 10:00 05/29/24 09:10 100 MG Flecainide Acetate 100 mg Q12HR PO 05/09/24 22:00 05/29/24 09:08 100 MG Folic Acid 1 mg DAILY PO 05/11/24 10:00 05/29/24 09:08 1 MG Diagnostic Test (Pha) 1 strip Q6HR 05/10/24 18:00 05/29/24 11:56 1 STRIP Insulin Human Regular FOLLOW SLIDING SCALE Q6HR SC 05/10/24 18:00 05/29/24 11:56 4 UNITS Dextrose 50 ml UD IV 05/10/24 17:15 Sodium Chloride 10 ml QSHIFT@, IV 05/13/24 22:00 05/29/24 09:09 10 ML Albuterol 2.5 mg Q4HR NEB 05/15/24 14:00 05/29/24 10:00 2.5 MG Ipratropium [place] 0.5 mg Q4HR NEB 05/15/24 14:00 05/29/24 10:00 0.5 MG Phenylephrine HCl 80 mg/Sodium Chloride 250 ml @ 7.5 mls/hr Q24H IV 05/16/24 11:15 Norepinephrine Bitartrate 32 mg/ Sodium Chloride 250 ml @ 0.938 mls/ hr Q24H IV 05/16/24 11:15 05/28/24 22:23 3.75 MLS/HR Enteral Nutritional Formula 1,000 ml 30ML/HR GT 05/22/24 06:30 05/22/24 14:59 1,000 ML Nystatin 1 applic BID TOP 05/23/24 22:00 05/29/24 09:08 1 APPLIC Metoclopramide HCl 5 mg BID IV 05/23/24 22:00 05/29/24 09:11 5 MG Midazolam HCl 50 ml @ 1 mls/hr Q24H IV 05/24/24 03:00 05/27/24 02:42 5 MLS/HR Vancomycin HCl 0 ml @ 0 mls/hr UD IV 05/24/24 10:00 Octreotide Acetate 100 mcg TID SUBCUT 05/24/24 14:00 05/28/24 22:23 100 MCG Ursodiol 300 mg TID PO 05/25/24 14:00 05/29/24 06:24 300 MG Micafungin Sodium 100 mg/Sodium Chloride 100 ml @ 100 mls/hr DAILY IV 05/26/24 10:00 05/29/24 09:10 100 MLS/HR Lactulose 30 ml Q6HR NG 05/26/24 00:00 05/29/24 11:53 30 ML Methylprednisolone Sodium Succinate 20 mg BID IV 05/26/24 22:00 05/29/24 09:09 20 MG Midodrine 10 mg TID@0600,1200,1800 PO 05/28/24 12:00 05/29/24 11:53 10 MG Furosemide 20 mg DAILY IV 05/28/24 10:00 05/29/24 09:09 20 MG laboratory and microbiology Laboratory Tests 05/29/24 03:30 Test 05/29/24 03:30 Range/Units Serum Glucose 209 H 74-106 mg/dL Assessment/Plan 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 Impression Acute hypoxemic respiratory failure Hepatic encephalopathy Hx of substance abuse Aspiration pneumonia Liver disease Patient seen and examined in ICU Events On mechanical ventilation S/p intubation PEEP 5, FiO2 30% Patient persistently altered requires sedation Labs and imaging reviewed ABG reviewed Management Vent support Titrate to maintain sats 90% or above Continue antibiotics Bronchodilators Monitor renal function Monitor electrolytes Supplement as needed Pressors as needed for hemodynamic support To maintain a mean arterial pressure of 65 mmHg DVT prophylaxis Critical care time 35 minutes Dietary Evaluation Review Comments: 1. Per RN, pt is able to drink liquid but unable to manage jello. Will Downgrade his CCHO-60 diet to pureed texture. 2. offer Glucern BID if PO is still poor 3. elevated BUN, f/u and reassess after pt has a GI and nephrology consult. 4. consider clinimix as a form of protein supplementation as pt has very low albumin. Expected Outcomes/Goals: Gradual wt loss, better DM control. Plan discussed with: Other (rn) DANELLE STUART MD May 29, 2024 12:37
--- NOTE | 2024-05-29 12:43 | DVHPN2 ---
Progress Note Date Seen: May 29, 2024 Medical Necessity Reason Pt with a Central, PICC or Fol: Yes The following are medically ne: PICC Line, Mcduffie Catheter Reason for mcduffie catheter: Strict I&O Subjective Review of Systems: RESPIRATORY:Abnormal Other Systems: Patient seen and examined by myself today, patient remained intubated on ventilator Objective vital signs Vital Sign Date Time Temp Pulse Resp B/P (MAP) Pulse Ox O2 Delivery O2 Flow Rate FiO2 05/29/24 10:45 112 16 103/64 (77) 95 05/29/24 10:00 Mechanical Ventilator+ 30 30 05/29/24 08:00 97.0 97.0 Total Intake and Output 05/28/24 05/28/24 05/29/24 15:00 23:00 07:00 Intake Total 130.00 ml 150.00 ml 145.776 ml Output Total 600 ml 600 ml Balance 130.00 ml -450.00 ml -454.224 ml medications Current Medications Medications Dose Ordered Sig/Kenisha Route Start Time Stop Time Status Last Admin Dose Admin Sodium Chloride 10 ml Q8HR IV 05/07/24 06:00 05/29/24 06:00 10 ML Ondansetron HCl 4 mg Q4HP PRN IV 05/06/24 22:15 Pantoprazole Sodium 40 mg BID IV 05/08/24 22:00 05/29/24 09:08 40 MG Thiamine HCl 100 mg DAILY IV 05/10/24 10:00 05/29/24 09:10 100 MG Flecainide Acetate 100 mg Q12HR PO 05/09/24 22:00 05/29/24 09:08 100 MG Folic Acid 1 mg DAILY PO 05/11/24 10:00 05/29/24 09:08 1 MG Diagnostic Test (Pha) 1 strip Q6HR 05/10/24 18:00 05/29/24 11:56 1 STRIP Insulin Human Regular FOLLOW SLIDING SCALE Q6HR SC 05/10/24 18:00 05/29/24 11:56 4 UNITS Dextrose 50 ml UD IV 05/10/24 17:15 Sodium Chloride 10 ml QSHIFT@10,22 IV 05/13/24 22:00 05/29/24 09:09 10 ML Albuterol 2.5 mg Q4HR NEB 05/15/24 14:00 05/29/24 10:00 2.5 MG Ipratropium [place] 0.5 mg Q4HR NEB 05/15/24 14:00 05/29/24 10:00 0.5 MG Phenylephrine HCl 80 mg/Sodium Chloride 250 ml @ 7.5 mls/hr Q24H IV 05/16/24 11:15 Norepinephrine Bitartrate 32 mg/ Sodium Chloride 250 ml @ 0.938 mls/ hr Q24H IV 05/16/24 11:15 05/28/24 22:23 3.75 MLS/HR Enteral Nutritional Formula 1,000 ml 30ML/HR GT 05/22/24 06:30 05/22/24 14:59 1,000 ML Nystatin 1 applic BID TOP 05/23/24 22:00 05/29/24 09:08 1 APPLIC Metoclopramide HCl 5 mg BID IV 05/23/24 22:00 05/29/24 09:11 5 MG Midazolam HCl 50 ml @ 1 mls/hr Q24H IV 05/24/24 03:00 05/27/24 02:42 5 MLS/HR Vancomycin HCl 0 ml @ 0 mls/hr UD IV 05/24/24 10:00 Octreotide Acetate 100 mcg TID SUBCUT 05/24/24 14:00 05/28/24 22:23 100 MCG Ursodiol 300 mg TID PO 05/25/24 14:00 05/29/24 06:24 300 MG Micafungin Sodium 100 mg/Sodium Chloride 100 ml @ 100 mls/hr DAILY IV 05/26/24 10:00 05/29/24 09:10 100 MLS/HR Lactulose 30 ml Q6HR NG 05/26/24 00:00 05/29/24 11:53 30 ML Methylprednisolone Sodium Succinate 20 mg BID IV 05/26/24 22:00 05/29/24 09:09 20 MG Midodrine 10 mg TID@0600,1200,1800 PO 05/28/24 12:00 05/29/24 11:53 10 MG Furosemide 20 mg DAILY IV 05/28/24 10:00 05/29/24 09:09 20 MG Examination: LUNGS:Normal, CVS:Normal, MSK:Normal laboratory and microbiology Laboratory Tests 05/29/24 03:30 Test 05/29/24 03:30 Range/Units Serum Glucose 209 H 74-106 mg/dL Microbiology Date/Time Source Procedure Growth Status 05/26/24 16:23 Blood Blood Culture - Preliminary Resulted 05/23/24 16:00 Sputum Gram Stain - Final Complete 05/23/24 16:00 Respiratory Culture - Final Staphylococcus haemolyticus Presumptive Clara albicans Complete 05/23/24 12:30 Urine - [place] Urine Culture - Final Complete 05/13/24 14:00 Nose MRSA Screen - Final Complete Problem List/Assessment/Plan Problem List/Assessment/Plan Acute kidney injury superimposed Chronic Kidney Disease stage IIIB secondary to hemodynamically mediated ATN, FeNa > 2% Acute respiratory failure, intubated on ventilator Aspiration pneumonia Septic shock Hypernatremia due to insensible water loss Hepatic encephalopathy Decompensated liver cirrhosis Acute methamphetamine intoxication heavy alcoholism Hepatitis-C Multidrug resistant ESBL urinary tract infection Hypokalemia Recommendations Kidney function stabilize stage IIIB Increased urine output Hypernatremia appropriately resolved KCL replacement Mcduffie catheter Strict I&Os I agree with hypotonic IVF hydration IV Levophed for blood pressure support Octreotide Free water IV antibiotics We will continue to follow Plan discussed with: Other (Nurse) Dietary Evaluation Review Comments: 1. Per RN, pt is able to drink liquid but unable to manage jello. Will Downgrade his CCHO-60 diet to pureed texture. 2. offer Glucern BID if PO is still poor 3. elevated BUN, f/u and reassess after pt has a GI and nephrology consult. 4. consider clinimix as a form of protein supplementation as pt has very low albumin. Expected Outcomes/Goals: Gradual wt loss, better DM control. MELISA MORGAN MD May 29, 2024 12:43
--- NOTE | 2024-05-29 21:41 | DVHPN2 ---
Progress Note - Dictate Date Seen: May 29, 2024 Medical Necessity Reason Pt with a Central, PICC or Fol: Yes The following are medically ne: PICC Line, Mcduffie Catheter Reason for mcduffie catheter: Strict I&O Subjective No new complaints, patient is still intubated sedated in ICU No bowel movement recorded, patient is still has flexi Seal Patient's NG tube feedings were held two days ago because of high gastric residuals and some regurgitation of the feedings Liver enzymes are finally starting to trend downwards and leukocytosis is improved vital signs Vital Sign Date Time Temp Pulse Resp B/P (MAP) Pulse Ox O2 Delivery O2 Flow Rate FiO2 05/29/24 18:45 107 11 105/62 (76) 97 05/29/24 18:23 Nasal Cannula 4.0 05/29/24 18:23 36 05/29/24 16:00 98.0 98.0 Total Intake and Output 05/28/24 05/28/24 05/29/24 15:00 23:00 07:00 Intake Total 130.00 ml 150.00 ml 145.776 ml Output Total 600 ml 600 ml Balance 130.00 ml -450.00 ml -454.224 ml medications Current Medications Medications Dose Ordered Sig/Kenisha Route Start Time Stop Time Status Last Admin Dose Admin Sodium Chloride 10 ml Q8HR IV 05/07/24 06:00 05/29/24 13:28 10 ML Ondansetron HCl 4 mg Q4HP PRN IV 05/06/24 22:15 Pantoprazole Sodium 40 mg BID IV 05/08/24 22:00 05/29/24 09:08 40 MG Thiamine HCl 100 mg DAILY IV 05/10/24 10:00 05/29/24 09:10 100 MG Flecainide Acetate 100 mg Q12HR PO 05/09/24 22:00 05/29/24 09:08 100 MG Folic Acid 1 mg DAILY PO 05/11/24 10:00 05/29/24 09:08 1 MG Diagnostic Test (Pha) 1 strip Q6HR 05/10/24 18:00 05/29/24 17:36 1 STRIP Insulin Human Regular FOLLOW SLIDING SCALE Q6HR SC 05/10/24 18:00 05/29/24 17:35 4 UNITS Dextrose 50 ml UD IV 05/10/24 17:15 Sodium Chloride 10 ml QSHIFT@ IV 05/13/24 22:00 05/29/24 09:09 10 ML Albuterol 2.5 mg Q4HR NEB 05/15/24 14:00 05/29/24 18:23 2.5 MG Ipratropium [place] 0.5 mg Q4HR NEB 05/15/24 14:00 05/29/24 18:23 0.5 MG Phenylephrine HCl 80 mg/Sodium Chloride 250 ml @ 7.5 mls/hr Q24H IV 05/16/24 11:15 Norepinephrine Bitartrate 32 mg/ Sodium Chloride 250 ml @ 0.938 mls/ hr Q24H IV 05/16/24 11:15 05/28/24 22:23 3.75 MLS/HR Enteral Nutritional Formula 1,000 ml 30ML/HR GT 05/22/24 06:30 05/22/24 14:59 1,000 ML Nystatin 1 applic BID TOP 05/23/24 22:00 05/29/24 09:08 1 APPLIC Metoclopramide HCl 5 mg BID IV 05/23/24 22:00 05/29/24 09:11 5 MG Midazolam HCl 50 ml @ 1 mls/hr Q24H IV 05/24/24 03:00 05/27/24 02:42 5 MLS/HR Vancomycin HCl 0 ml @ 0 mls/hr UD IV 05/24/24 10:00 Octreotide Acetate 100 mcg TID SUBCUT 05/24/24 14:00 05/29/24 13:27 100 MCG Ursodiol 300 mg TID PO 05/25/24 14:00 05/29/24 13:27 300 MG Micafungin Sodium 100 mg/Sodium Chloride 100 ml @ 100 mls/hr DAILY IV 05/26/24 10:00 05/29/24 09:10 100 MLS/HR Lactulose 30 ml Q6HR NG 05/26/24 00:00 05/29/24 11:53 30 ML Methylprednisolone Sodium Succinate 20 mg BID IV 05/26/24 22:00 05/29/24 09:09 20 MG Midodrine 10 mg TID@0600,1200,1800 PO 05/28/24 12:00 05/29/24 11:53 10 MG Furosemide 20 mg DAILY IV 05/28/24 10:00 05/29/24 09:09 20 MG objective General: Intubated sedated HEENT: NC/AT EOMI dry mucous membranes Heart: Tachycardic regular rhythm Abdomen: Soft nontender nondistended Extremity: No clubbing cyanosis or edema laboratory and microbiology Laboratory Tests 05/29/24 03:30 Test 05/29/24 03:30 Range/Units Serum Glucose 209 H 74-106 mg/dL Problems(with codes): (1) Jaundice (2) Aspiration pneumonia (3) MRSA (methicillin resistant Staphylococcus aureus) septicemia (4) Liver failure Prognosis Plan Continue supportive care Patient's family do not want trach and PEG and are wanting a CPAP trial prognosis remains guarded Dietary Evaluation Review Comments: 1. Per RN, pt is able to drink liquid but unable to manage jello. Will Downgrade his CCHO-60 diet to pureed texture. 2. offer Glucern BID if PO is still poor 3. elevated BUN, f/u and reassess after pt has a GI and nephrology consult. 4. consider clinimix as a form of protein supplementation as pt has very low albumin. Expected Outcomes/Goals: Gradual wt loss, better DM control. Plan discussed with: Other (ICU Nurse) PAULINA BAINS MD May 29, 2024 21:41
--- NOTE | 2024-05-29 22:41 | DVH ---
Examination: CXRP CLINICAL INDICATION: LT NGT PLACEMENT COMPARISON: None. Technique: Frontal radiograph of the chest was obtained. Findings: Right central catheter noted with its tip at level of distal SVC -no repositioning is needed. NG tube noted at appropriate position stomach with tip out of the field. Pulmonary infiltrates in right mid and lower lung rodriguez with mild right pleural effusion. Chronic lung changes seen. There is no pneumothorax. Central venous congestive changes noted. The cardio mediastinal silhouette appears enlarged. No acute osseous pathology. Degenerative changes Noted in visualized spine. Impression: 1. Pulmonary infiltrates in right mid and lower lung rodriguez with mild right pleural effusion. 2. Mild cardiomegaly with Central venous congestive changes noted. 3. Clinical correlation with follow up radiograph is recommended. Electronically Signed 05/29/2024 22:39 Selwyn Bello
[2024-05-30] VITALS (108 sets, daily range): BP systolic 85–129; BP diastolic 48–73; PULSE 88–107; RESP 7–19; TEMP 97.4–98.9; O2SAT 88–100
[2024-05-30 04:01] LABS: Basophils # (auto) 0 10 ^3/uL (0-0.2); Basophils % (auto) 0.1 % (0.0-2.0); Eosinophils # (auto) 0 10 ^3/uL (0-0.8); Hematocrit 27.9 % (41.0-53.0); Hemoglobin 8.7 g/dL (13.5-17.5); Lymphocytes # (auto) 0.2 10 ^3/uL (0.4-5.4); Lymphocytes % (auto) 1.6 % (10.0-50.0); Mean Corpuscular Hemoglobin 30.1 pg (28.0-32.0); Mean Corpuscular Hgb Conc. 31.2 g/dL (32.0-36.0); Mean Corpuscular Volume 96.5 fL (80.0-100.0); Monocytes # (auto) 0.4 10 ^3/uL (0-1.3); Monocytes % (auto) 2.8 % (0.0-12.0); Neutrophils # (auto) 12.2 10 ^3/uL (1.6-8.6); Neutrophils % (auto) 95.5 % (37.0-80.0); Nucleated Red Blood Cells % 0.1 %; Platelet Count (auto) 84 10^3/uL (140-450); Red Blood Cells 2.89 10^6/uL (4.5-5.90); White Blood Cell 12.8 10^3/uL (4.4-10.8)
[2024-05-30 04:09] LABS: Red Cell Distribution Width 28.7 % (11.8-14.3)
[2024-05-30 04:15] LABS: Anion Gap 11 (5-15); Calcium 9.2 mg/dL (8.7-10.4); Carbon Dioxide 24 mmol/L (20-31)
[2024-05-30 04:18] LABS: Albumin 2.4 g/dL (3.2-4.8); Alkaline Phosphatase 274 U/L (46-116); Chloride 116 mmol/L (98-107); Glucose 190 mg/dL (74-106); Potassium 3.3 mmol/L (3.5-5.1); Sodium 151 mmol/L (136-145)
[2024-05-30 04:23] LABS: BUN/Creatinine Ratio 40.4 (10.0-20.0)
[2024-05-30 04:41] LABS: Alanine Aminotransferase 100 U/L (7-40); Aspartate Aminotransferase 95 U/L (13-40); Blood Urea Nitrogen 99 mg/dL (9-23); Total Protein 5.3 g/dL (5.7-8.2)
[2024-05-30 05:01] LABS: Anisocytosis Slight; Ovalocytes FEW; Platelet Estimate Decreased; Target Cell FEW
--- NOTE | 2024-05-30 05:32 | DVH ---
EXAM: XR Chest, 1 View CLINICAL INDICATION: pna TECHNIQUE: Frontal view of the chest. COMPARISON: XY CHEST PORTABLE on DOS: 05/29/24, XY CHEST PORTABLE on DOS: 05/29/24, XY CHEST PORTABLE on DOS: 05/28/24, XY CHEST XRAY 1 VIEW on DOS: 05/27/24, XY CHEST XRAY 1 VIEW on DOS: 05/26/24 FINDINGS: LUNGS AND PLEURAL SPACES: Pulmonary congestion and edema. Pneumonia cannot be excluded. Right pleu ral effusion. No pneumothorax. HEART: Unremarkable. No cardiomegaly. MEDIASTINUM: Unremarkable. Normal mediastinal contour. BONES/JOINTS: Unremarkable. No acute fracture. TUBES, LINES AND DEVICES: Right internal jugular central venous catheter tip in the superior vena c otf. OTHER FINDINGS: . . IMPRESSION: 1. Pulmonary congestion and edema. Pneumonia cannot be excluded. 2. Right pleural effusion.
[2024-05-30] MEDS: POTASSIUM CHL 20MEQ/50ML 50 ML IV ONE ×2 (06:51→12:33)
[2024-05-30] MEDS: methylPREDNISolone SOD SUCC 125 MG/2 ML VL IV SCH (10:36)
[2024-05-30] MEDS: D5W 5% 1,000 ML IV SCH (10:49)
[2024-05-30] MEDS: ALBUMIN 25% 100 ML IV ONE (10:49)
--- NOTE | 2024-05-30 10:55 | DVHPN2 ---
Progress Note Date Seen: May 30, 2024 Medical Necessity Reason Pt with a Central, PICC or Fol: Yes The following are medically ne: PICC Line, Mcduffie Catheter Reason for mcduffie catheter: Strict I&O Subjective Patient reports: Other (confused) Review of Systems: NEURO:Abnormal Objective vital signs Vital Sign Date Time Temp Pulse Resp B/P (MAP) Pulse Ox O2 Delivery O2 Flow Rate FiO2 05/30/24 09:56 100 12 100 05/30/24 09:50 Nasal Cannula* 2 05/30/24 09:45 99/61 (74) 05/30/24 08:00 98.1 98.1 Total Intake and Output 05/29/24 05/29/24 05/30/24 15:00 23:00 07:00 Intake Total 145.628 ml 135.000 ml 175.317 ml Output Total 1175 ml 1000 ml Balance 145.628 ml -1040.000 ml -824.683 ml medications Current Medications Medications Dose Ordered Sig/Kenisha Route Start Time Stop Time Status Last Admin Dose Admin Sodium Chloride 10 ml Q8HR IV 05/07/24 06:00 05/30/24 06:09 10 ML Ondansetron HCl 4 mg Q4HP PRN IV 05/06/24 22:15 Pantoprazole Sodium 40 mg BID IV 05/08/24 22:00 05/30/24 10:24 40 MG Thiamine HCl 100 mg DAILY IV 05/10/24 10:00 05/30/24 10:24 100 MG Flecainide Acetate 100 mg Q12HR PO 05/09/24 22:00 05/30/24 10:27 100 MG Folic Acid 1 mg DAILY PO 05/11/24 10:00 05/30/24 10:27 1 MG Diagnostic Test (Pha) 1 strip Q6HR 05/10/24 18:00 05/30/24 06:01 1 STRIP Insulin Human Regular FOLLOW SLIDING SCALE Q6HR SC 05/10/24 18:00 05/30/24 06:02 4 UNITS Dextrose 50 ml UD IV 05/10/24 17:15 Sodium Chloride 10 ml QSHIFT@10,22 IV 05/13/24 22:00 05/30/24 10:26 10 ML Albuterol 2.5 mg Q4HR NEB 05/15/24 14:00 05/30/24 09:50 2.5 MG Ipratropium [place] 0.5 mg Q4HR NEB 05/15/24 14:00 05/30/24 09:50 0.5 MG Phenylephrine HCl 80 mg/Sodium Chloride 250 ml @ 7.5 mls/hr Q24H IV 05/16/24 11:15 Norepinephrine Bitartrate 32 mg/ Sodium Chloride 250 ml @ 0.938 mls/ hr Q24H IV 05/16/24 11:15 05/28/24 22:23 3.75 MLS/HR Enteral Nutritional Formula 1,000 ml 30ML/HR GT 05/22/24 06:30 05/22/24 14:59 1,000 ML Nystatin 1 applic BID TOP 05/23/24 22:00 05/30/24 10:27 1 APPLIC Metoclopramide HCl 5 mg BID IV 05/23/24 22:00 05/30/24 10:26 5 MG Midazolam HCl 50 ml @ 1 mls/hr Q24H IV 05/24/24 03:00 05/27/24 02:42 5 MLS/HR Vancomycin HCl 0 ml @ 0 mls/hr UD IV 05/24/24 10:00 Octreotide Acetate 100 mcg TID SUBCUT 05/24/24 14:00 05/30/24 06:01 100 MCG Ursodiol 300 mg TID PO 05/25/24 14:00 05/29/24 22:41 300 MG Micafungin Sodium 100 mg/Sodium Chloride 100 ml @ 100 mls/hr DAILY IV 05/26/24 10:00 05/30/24 10:27 100 MLS/HR Lactulose 30 ml Q6HR NG 05/26/24 00:00 05/30/24 00:00 30 ML Midodrine 10 mg TID@0600,1200,1800 PO 05/28/24 12:00 05/30/24 06:00 10 MG Furosemide 20 mg DAILY IV 05/28/24 10:00 05/29/24 09:09 20 MG Purified Water 200 ml Q6HR GT 05/30/24 12:00 Methylprednisolone Sodium Succinate 20 mg DAILY IV 05/30/24 10:36 Dextrose 1,000 ml @ 50 mls/hr Q20H IV 05/30/24 10:15 05/30/24 10:49 50 MLS/HR Examination: GENERAL:Abnormal, ABDOMEN:Abnormal, SKIN:Abnormal laboratory and microbiology Laboratory Tests 05/30/24 03:46 Test 05/30/24 03:46 Range/Units Serum Glucose 190 H 74-106 mg/dL Microbiology Date/Time Source Procedure Growth Status 05/26/24 16:23 Blood Blood Culture - Preliminary Resulted 05/23/24 16:00 Sputum Gram Stain - Final Complete 05/23/24 16:00 Respiratory Culture - Final Staphylococcus haemolyticus Presumptive [place] albicans Complete 05/23/24 12:30 Urine - [place] Urine Culture - Final Complete 05/13/24 14:00 Nose MRSA Screen - Final Complete Problem List/Assessment/Plan Problem List/Assessment/Plan Acute kidney injury hemodynamically mediated in the setting of hypotension and shock Acute respiratory failure in the setting of aspiration pneumonia --> compassinate extubation Hepatic encephalopathy Decompensated liver cirrhosis \Acute methamphetamine intoxication, Hepatitis-C Multidrug resistant ESBL urinary tract infection hypernatremia free water based on deficit lasix IV w/ IV albumin replace K as needed I/O grim prognosis Plan discussed with: Other Dietary Evaluation Review Comments: 1. Per RN, pt is able to drink liquid but unable to manage jello. Will Downgrade his CCHO-60 diet to pureed texture. 2. offer Glucern BID if PO is still poor 3. elevated BUN, f/u and reassess after pt has a GI and nephrology consult. 4. consider clinimix as a form of protein supplementation as pt has very low albumin. Expected Outcomes/Goals: Gradual wt loss, better DM control. Critical Care Time (mins): 33 PIETRO VILLEDA MD May 30, 2024 10:55
--- NOTE | 2024-05-30 11:13 | DVHPN2 ---
Progress Note - Dictate Date Seen: May 30, 2024 Medical Necessity Reason Pt with a Central, PICC or Fol: Yes The following are medically ne: PICC Line, Mcduffie Catheter Reason for mcduffie catheter: Strict I&O Subjective Mr. Linder is a 63 years old gentleman with a history of diabetes, liver cirrhosis, hepatitis-C infection, cancer, the patient was brought to the [facility] on 05/06/2024 with a chief complaint of overdose. I have seen and examined the patient was, discussed with his nurse,. He is extubated, respond to touch stimuli, he follows a few of my verbal commands, he moves the arms spontaneously. He was very weak Levo 4 mcg/minute Blood culture, 05/23/2024: Gram-positive cocci in clusters Urine culture, 05/07/2024: Klebsiella pneumoniae Stool Occult blood, 06/09/2024: Positive UDS, 05/07/2024: Opiates, amphetamine Plasma alcohol, 05/06/2024: <3 Urinalysis, 05/07/2024: WBC: 193, urine leukocyte esterase: 2+ ABG, 05/07/2024: Combined respiratory and metabolic acidosis, 05/13/2024: Metabolic acidosis, 05/15/2024: Respiratory acidosis, 05/19/2024: Respiratory acidosis, 05/25/2024: Respiratory acidosis WBC/HB/PLT/MCV, 05/25/2024: 19.5/8.4/100/93.8 PT/INR/PTT, 05/16/2024: 19.4/1.96, 05/20/2024: 17.2/1.71 BUN/CR, 05/25/2024: 73/1.95 GFR, 10/20/2024: 38 TBI/AST/ALT/AP, 05/25/2024: 25.2/133/76/292 NH3, 05/07/24: 84, 05/12/2024: 30, 05/13/24: 82, 05/16/2024: 43, 05/24/2024: 37 EEG, 05/25/24: Remarkably abnormal EEG Chest x-ray, 05/07/2024: 1. Interval placement of enteric tube with terminus just distal to the expected level of the GEJ. 2. Interval increase in left lung base pulmonary markings suggestive of possible developing infiltrate. 3. Stable diffuse prominence of the pulmonary vasculature. CT head, 05/07/2024: No acute intracranial hemorrhage, midline shift or mass effect. If symptoms persist, further evaluation with MRI is recommended CVA, neck, 05/13/2024: No hemodynamically significant stenosis, aneurysm or dissection involving the major intracranial and neck vessels. The suggested fistulous connection noted on ultrasound between the distal left common carotid artery and left internal jugular vein is not definitely visualized. No contrast extravasation is noted. CT head, 05/25/2024: No acute intracranial process vital signs Vital Sign Date Time Temp Pulse Resp B/P (MAP) Pulse Ox O2 Delivery O2 Flow Rate FiO2 05/30/24 09:56 100 12 100 05/30/24 09:50 Nasal Cannula* 2 05/30/24 09:45 99/61 (74) 05/30/24 08:00 98.1 98.1 Total Intake and Output 05/29/24 05/29/24 05/30/24 15:00 23:00 07:00 Intake Total 145.628 ml 135.000 ml 175.317 ml Output Total 1175 ml 1000 ml Balance 145.628 ml -1040.000 ml -824.683 ml medications Current Medications Medications Dose Ordered Sig/Kenisha Route Start Time Stop Time Status Last Admin Dose Admin Sodium Chloride 10 ml Q8HR IV 05/07/24 06:00 05/30/24 06:09 10 ML Ondansetron HCl 4 mg Q4HP PRN IV 05/06/24 22:15 Pantoprazole Sodium 40 mg BID IV 05/08/24 22:00 05/30/24 10:24 40 MG Thiamine HCl 100 mg DAILY IV 05/10/24 10:00 05/30/24 10:24 100 MG Flecainide Acetate 100 mg Q12HR PO 05/09/24 22:00 05/30/24 10:27 100 MG Folic Acid 1 mg DAILY PO 05/11/24 10:00 05/30/24 10:27 1 MG Diagnostic Test (Pha) 1 strip Q6HR 05/10/24 18:00 05/30/24 06:01 1 STRIP Insulin Human Regular FOLLOW SLIDING SCALE Q6HR SC 05/10/24 18:00 05/30/24 06:02 4 UNITS Dextrose 50 ml UD IV 05/10/24 17:15 Sodium Chloride 10 ml QSHIFT@10,22 IV 05/13/24 22:00 05/30/24 10:26 10 ML Albuterol 2.5 mg Q4HR NEB 05/15/24 14:00 05/30/24 09:50 2.5 MG Ipratropium [place] 0.5 mg Q4HR NEB 05/15/24 14:00 05/30/24 09:50 0.5 MG Phenylephrine HCl 80 mg/Sodium Chloride 250 ml @ 7.5 mls/hr Q24H IV 05/16/24 11:15 Norepinephrine Bitartrate 32 mg/ Sodium Chloride 250 ml @ 0.938 mls/ hr Q24H IV 05/16/24 11:15 05/28/24 22:23 3.75 MLS/HR Enteral Nutritional Formula 1,000 ml 30ML/HR GT 05/22/24 06:30 05/30/24 10:54 1,000 ML Nystatin 1 applic BID TOP 05/23/24 22:00 05/30/24 10:27 1 APPLIC Metoclopramide HCl 5 mg BID IV 05/23/24 22:00 05/30/24 10:26 5 MG Midazolam HCl 50 ml @ 1 mls/hr Q24H IV 05/24/24 03:00 05/27/24 02:42 5 MLS/HR Vancomycin HCl 0 ml @ 0 mls/hr UD IV 05/24/24 10:00 Octreotide Acetate 100 mcg TID SUBCUT 05/24/24 14:00 05/30/24 06:01 100 MCG Ursodiol 300 mg TID PO 05/25/24 14:00 05/29/24 22:41 300 MG Micafungin Sodium 100 mg/Sodium Chloride 100 ml @ 100 mls/hr DAILY IV 05/26/24 10:00 05/30/24 10:27 100 MLS/HR Lactulose 30 ml Q6HR NG 05/26/24 00:00 05/30/24 00:00 30 ML Midodrine 10 mg TID@0600,1200,1800 PO 05/28/24 12:00 05/30/24 06:00 10 MG Furosemide 20 mg DAILY IV 05/28/24 10:00 05/29/24 09:09 20 MG Purified Water 200 ml Q6HR GT 05/30/24 12:00 Methylprednisolone Sodium Succinate 20 mg DAILY IV 05/30/24 10:36 Dextrose 1,000 ml @ 50 mls/hr Q20H IV 05/30/24 10:15 05/30/24 10:49 50 MLS/HR objective The patient is well-nourished and well-developed with no distress. The patient is intubated MENTAL STATUS: Subjective CRANIAL NERVES: Pupils are equally round and reactive.There are corneal reflexes and doll's eyes phenomenon. No signs of facial weakness. There are gagging or coughing reflexes. SENSATION: Responses to touch MOTOR: Normal tone in the upper and lower extremity. Normal muscle bulk. No fasciculations. Movement in the arms and legs noticed. REFLEXES: Deep tendon reflexes are symmetrical. Upgoing toes bilaterally CEREBELLAR/COORDINATION: Deferred GAIT/STATION: deferred. laboratory and microbiology Laboratory Tests 05/30/24 03:46 Test 05/30/24 03:46 Range/Units Serum Glucose 190 H 74-106 mg/dL Problem List Altered mental status Metabolic encephalopathy Hepatic encephalopathy Hypoxic encephalopathy Sepsis, septic shock Liver failure Liver cirrhosis Coagulopathy Jaundice Acute kidney failure Urinary tract infection Pneumonia Improving Assessment/Plan Monitoring Supportive treatment ICU care Stabilize vitals/pressor drip Respiratory support/vent management Oxygen IV antibiotics Thiamine supplementation GI prophylaxis/Protonix Pulmonology on case Nephrology on case GI on case More recommendation per clinical course This medical document was created using an electronic medical record system with [employer] dictation system. Although this document has been carefully reviewed, there may still be some phonetic and typographical errors. These areas are purely typographical due to imperfections of the software programs, and do not reflect any compromise in the patient's medical care Prognosis poor Dietary Evaluation Review Comments: 1. Per RN, pt is able to drink liquid but unable to manage jello. Will Downgrade his CCHO-60 diet to pureed texture. 2. offer Glucern BID if PO is still poor 3. elevated BUN, f/u and reassess after pt has a GI and nephrology consult. 4. consider clinimix as a form of protein supplementation as pt has very low albumin. Expected Outcomes/Goals: Gradual wt loss, better DM control. Plan discussed with: Other GETACHEW BLACKWOOD MD May 30, 2024 11:13
[2024-05-30] MEDS: FREE WATER GT SCH (12:22)
[2024-05-30 14:09] LABS: Base Excess -1.9 mmol/L (-2.0-3.0)
--- NOTE | 2024-05-30 19:42 | DVHPNRES ---
Progress Note Date Seen: May 30, 2024 Resident Creating Document: TIERRA GALEAS RESIDENT Medical Necessity Reason Pt with a Central, PICC or Fol: Yes The following are medically ne: PICC Line, Mcduffie Catheter Reason for mcduffie catheter: Strict I&O Subjective Review of Systems HPI Patient is a 63-year-old male with a past medical history of liver cirrhosis likely secondary to hep C, liver shunt, CHF, diabetes mellitus, prostate cancer, history of lower GI bleed status post blood transfusion was brought to the ER with a chief complaint of drug overdose. Information gathered from reviewing the chart and talking with the patient's family, as per he was found gargling and unresponsive in a car, possible overdose of morphine following which EMS were called. EMS gave the patient Narcan and he woke up but was unable to recall what happened. Urine drug screen in the ER was positive for amphetamine and opiates. Was obtunded and was on oxygen support. While in the ER patient went into atrial fibrillation rapid ventricular response following which she was given diltiazem. Patient while in the hospital had altered mental status, sepsis likely due to UTI with the underlying liver cirrhosis had to be put on mechanical ventilation and put on vasopressor support. Patient was transferred to the ICU for further care. In ICU patient was treated with meropenem for Klebsiella pneumoniae ESBL multidrug resistant and also coverage for suspected aspiration pneumonia in the right lower lung, diuresis for with the Lasix, rifaximin and lactulose for hepatic encephalopathy, Patient's blood cultures were done twice and did not show any growth after 5 days, respiratory sputum cultures did not show any growth. Patient's mental status remained obtunded even after turning of the sedation, had vasopressor requirements therefore he could not be extubated. Past medical history: Liver cirrhosis likely secondary to hep C, liver shunt, CHF, type 2 diabetes mellitus, prostate cancer status post radiotherapy, history of lower GI bleed s/p blood transfusions Past surgical history: Hernia repair, tips, live knee surgery Social history: Patient lives with the , history of smoking less than 1 pack per day, reported alcohol and illicit drug usage Home medications: Lasix 20 mg b.i.d., gabapentin 300 mg q.8 hours, insulin glargine 15 units SC b.i.d., spironolactone 50 mg daily Review of systems 05/25/2024 Patient seen and examined at the bedside. - patient has been weaned off sedation since 0 . Norepinephrine at 6 mcg/min maintaining a MAP> 65. - patient is delirious, responds to tactile stimulus - patient did not have any fever, WBC count trending down. - overnight and in the morning patient had a urine output of 1200ml. Flexi seal removed and the patient was had 2 bowel movements overnight Objective vital signs Vital Sign Date Time Temp Pulse Resp B/P (MAP) Pulse Ox O2 Delivery O2 Flow Rate FiO2 05/30/24 19:15 99 10 112/67 (82) 100 05/30/24 18:40 Nasal Cannula 2.0 05/30/24 18:40 28 05/30/24 12:00 98.9 98.9 Total Intake and Output 05/29/24 05/29/24 05/30/24 15:00 23:00 07:00 Intake Total 145.628 ml 135.000 ml 175.317 ml Output Total 1175 ml 1000 ml Balance 145.628 ml -1040.000 ml -824.683 ml medications Current Medications Medications Dose Ordered Sig/Kenisha Route Start Time Stop Time Status Last Admin Dose Admin Sodium Chloride 10 ml Q8HR IV 05/07/24 06:00 05/30/24 15:29 10 ML Ondansetron HCl 4 mg Q4HP PRN IV 05/06/24 22:15 Pantoprazole Sodium 40 mg BID IV 05/08/24 22:00 05/30/24 10:24 40 MG Thiamine HCl 100 mg DAILY IV 05/10/24 10:00 05/30/24 10:24 100 MG Flecainide Acetate 100 mg Q12HR PO 05/09/24 22:00 05/30/24 10:27 100 MG Folic Acid 1 mg DAILY PO 05/11/24 10:00 05/30/24 10:27 1 MG Diagnostic Test (Pha) 1 strip Q6HR 05/10/24 18:00 05/30/24 17:46 1 STRIP Insulin Human Regular FOLLOW SLIDING SCALE Q6HR SC 05/10/24 18:00 05/30/24 18:06 8 UNITS Dextrose 50 ml UD IV 05/10/24 17:15 Sodium Chloride 10 ml QSHIFT@ IV 05/13/24 22:00 05/30/24 10:26 10 ML Albuterol 2.5 mg Q4HR NEB 05/15/24 14:00 05/30/24 18:40 2.5 MG Ipratropium [place] 0.5 mg Q4HR NEB 05/15/24 14:00 05/30/24 18:40 0.5 MG Phenylephrine HCl 80 mg/Sodium Chloride 250 ml @ 7.5 mls/hr Q24H IV 05/16/24 11:15 Norepinephrine Bitartrate 32 mg/ Sodium Chloride 250 ml @ 0.938 mls/ hr Q24H IV 05/16/24 11:15 05/28/24 22:23 3.75 MLS/HR Enteral Nutritional Formula 1,000 ml 30ML/HR GT 05/22/24 06:30 05/30/24 10:54 1,000 ML Nystatin 1 applic BID TOP 05/23/24 22:00 05/30/24 10:27 1 APPLIC Metoclopramide HCl 5 mg BID IV 05/23/24 22:00 05/30/24 10:26 5 MG Midazolam HCl 50 ml @ 1 mls/hr Q24H IV 05/24/24 03:00 05/27/24 02:42 5 MLS/HR Vancomycin HCl 0 ml @ 0 mls/hr UD IV 05/24/24 10:00 Octreotide Acetate 100 mcg TID SUBCUT 05/24/24 14:00 05/30/24 15:29 100 MCG Ursodiol 300 mg TID PO 05/25/24 14:00 05/30/24 15:27 300 MG Micafungin Sodium 100 mg/Sodium Chloride 100 ml @ 100 mls/hr DAILY IV 05/26/24 10:00 05/30/24 10:27 100 MLS/HR Lactulose 30 ml Q6HR NG 05/26/24 00:00 05/30/24 17:47 30 ML Midodrine 10 mg TID@0600,1200,1800 PO 05/28/24 12:00 05/30/24 17:47 10 MG Furosemide 20 mg DAILY IV 05/28/24 10:00 05/30/24 13:35 20 MG Purified Water 200 ml Q6HR GT 05/30/24 12:00 05/30/24 17:47 200 ML Methylprednisolone Sodium Succinate 20 mg DAILY IV 05/30/24 10:36 Dextrose 1,000 ml @ 50 mls/hr Q20H IV 05/30/24 10:15 05/30/24 10:49 50 MLS/HR Examination Gen - conjunctival pallor present , scleral icterus present, no cyanosis, no clubbing, no LAD, bilateral 2+ pitting pedal edema Skin - Patients skin is warm and dry, multiple spider angiomata skin on the chest, erythematous rash seen in the groin on both the sides HEENT - normocephalic, atraumatic, moist mucous membranes. Neck - no LAD, no JV distention Pulmonary - decreased breath sounds in the right lower lung, left basilar crackles, no wheezing, no stridor. cardiovascular - variable S1,S2 heard, no added sounds, no murmurs heard. capillary refill normal <2 secs. GI - soft abdomen. no hepatospleenomegaly. Bowel Sounds normoactive Neurological - patient was delirious, responds to tactile stimulus but not able to maintain eye contact for more than 5 seconds, plantar reflex downgoing, , pupils equal and reactive laboratory and microbiology Laboratory Tests 05/30/24 03:46 Test 05/30/24 03:46 Range/Units Serum Glucose 190 H 74-106 mg/dL Microbiology Date/Time Source Procedure Growth Status 05/26/24 16:23 Blood Blood Culture - Final Staphylococcus epidermidis Complete 05/23/24 16:00 Sputum Gram Stain - Final Complete 05/23/24 16:00 Respiratory Culture - Final Staphylococcus haemolyticus Presumptive [place] albicans Complete 05/23/24 12:30 Urine - [place] Urine Culture - Final Complete 05/13/24 14:00 Nose MRSA Screen - Final Complete Problem List/Assessment/Plan Problem List/Assessment/Plan Neurological # Acute metabolic encephalopathy likely hepatic encephalopathy/toxic drug- induced - head CT 05/07/24 showed no acute intracranial hemorrhage, midline shift or mass effect - urine drug screen at admission positive for opiates and amphetamines - ammonia trending down, on lactulose Respiratory # Acute hypoxemic/hypercarbic respiratory failure # bilateral lower lobe pneumonia likely due to Gram+/-bacteria # bilateral pleural effusion # pulmonary edema with right-sided pleural effusion - on oxygen via nasal cannula at 4 L/min - ABG reviewed today - respiratory acidosis - chest x-ray shows bilateral pulmonary edema with blunting of the right CP angle - on vancomycin and micafungin - albuterol and ipratropium med nebs q.4 hours - sputum cultures showing the growth of erickson, Cardiovascular # Septic shock likely d/t UTI vs pneumonia # new onset atrial fibrillation with RVR # NSTEMI type 2 likely due to demand supply mismatch - Echo shows LVEF 60% with concentric LVH, right atrial enlargement, right ventricular enlargement - on vasopressor support with norepinephrine, maintaining MAP > 65mmhg - flecainide 100 mg b.i.d. for AFib - [id number] Vasc- 1, has-bled 2 , currently anticoagulation is held, with the patient SOB positive and history of GI bleeding Gastrointestinal # decompensated liver cirrhosis # history of hepatitis-C infection # history of heavy alcohol use # ?SBP # ascites # hepatic encephalopathy - noted increase in bilirubin - low albumin, elevated PT INR, thrombocytopenia - lactulose 30 mL q.6h - currently on tube feeding at 30 mL/hour - Protonix 40 mg IV b.i.d. - Ursodiol 300 mg b.i.d. - methylprednisolone 20 mg q.d. - lasix Nephrology # acute kidney injury likely hemodynamically mediated due to shock,+ contrast likely ATN # hypernatremia - BUN and creatinine, trending down - FENa calculated today at 3% - free water deficit 3 L - free water 200 mL via NG tube q.6 hours - pharmacy conveyed that the vancomycin trough to be kept below 15 - D5W at 50 mL/hour Infectious disease # septic shock likely due to UTI versus pneumonia versus ?SBP # candidal infection in the groin - initial urine culture showed growth of multidrug resistant Klebsiella ESBL, on meropenem - initial blood cultures, respiratory sputum cultures negative - sputum cultures preliminary show growth of young colonies - nystatin powder q.12h for erickson - vancomycin and micafungin Endocrine # Insulin dependent Diabetes mellitus with hyperglycemia - On ISS - goal blood glucose 140-180 mg/dL Polysubstance Use Acute opiate/methamphetamine intoxication DVT prophylaxis: Sequential compression device PUD prophylaxis: Protonix PICC line in the left forearm- placed on 05/13/2024 Mcduffie's catheter- placed on 05/07/2024 Patient was extubated yesterday. Continues to be on norepinephrine. Patient has poor prognosis explained to the in detail and the need for BiPAP going forward if the patient's CO2 keeps rising but since he was altered he may end up aspirating. understood and wants the patient to be put on BiPAP if needed but no intubation or chest compressions. Goals of care discussed with the patient's Lorna about the patient's prognosis .. prognosis guarded Code status- modified DNR-no intubation, no chest compression Critical care time excluding procdures spent: 65 mins Plan discussed with Dr. Ag Plan discussed with: Spouse (Lorna), Other (RN ( Isha )) My Orders My Orders Orders - TIERRA GALEAS Procedure Category Date Status Time Free Water PHA 05/30/24 In Process 12:00 D5w 5% (Dextrose 5%) PHA 05/30/24 In Process 10:15 Methylprednisolone PHA 05/30/24 In Process Sod Succ (Solu Medrol 10:36 Abg W/ Co-Ox RT 05/30/24 Logged 13:48 Vancomycin,Random LAB 05/31/24 Verified 04:00 Dietary Evaluation Review Comments: 1. Per RN, pt is able to drink liquid but unable to manage jello. Will Downgrade his CCHO-60 diet to pureed texture. 2. offer Glucern BID if PO is still poor 3. elevated BUN, f/u and reassess after pt has a GI and nephrology consult. 4. consider clinimix as a form of protein supplementation as pt has very low albumin. Expected Outcomes/Goals: Gradual wt loss, better DM control. Date of Service: May 30, 2024 Billing Provider: DANELLE AG MD Common Visit Codes: NOT BILLABLE TIERRA GALEAS May 30, 2024 19:42 DANELLE AG MD May 31, 2024 09:28
--- NOTE | 2024-05-30 22:26 | DVHPN2 ---
Progress Note - Dictate Date Seen: May 30, 2024 Medical Necessity Reason Pt with a Central, PICC or Fol: Yes The following are medically ne: PICC Line, Mcduffie Catheter Reason for mcduffie catheter: Strict I&O Subjective Patient was made DNR yesterday and underwent compassionate extubation Liver enzymes persistently elevated with a bilirubin is slightly down to 24 No bowel movement recorded, vital signs Vital Sign Date Time Temp Pulse Resp B/P (MAP) Pulse Ox O2 Delivery O2 Flow Rate FiO2 05/30/24 20:00 99 11 100 Nasal Cannula* 2 28 05/30/24 19:15 112/67 (82) 05/30/24 16:00 98.7 98.7 Total Intake and Output 05/29/24 05/29/24 05/30/24 14:59 22:59 06:59 Intake Total 146.566 ml 135.000 ml 174.379 ml Output Total 1175 ml 1000 ml Balance 146.566 ml -1040.000 ml -825.621 ml medications Current Medications Medications Dose Ordered Sig/Kenisha Route Start Time Stop Time Status Last Admin Dose Admin Sodium Chloride 10 ml Q8HR IV 05/07/24 06:00 05/30/24 22:04 10 ML Ondansetron HCl 4 mg Q4HP PRN IV 05/06/24 22:15 Pantoprazole Sodium 40 mg BID IV 05/08/24 22:00 05/30/24 22:01 40 MG Thiamine HCl 100 mg DAILY IV 05/10/24 10:00 05/30/24 10:24 100 MG Flecainide Acetate 100 mg Q12HR PO 05/09/24 22:00 05/30/24 22:03 100 MG Folic Acid 1 mg DAILY PO 05/11/24 10:00 05/30/24 10:27 1 MG Diagnostic Test (Pha) 1 strip Q6HR 05/10/24 18:00 05/30/24 17:46 1 STRIP Insulin Human Regular FOLLOW SLIDING SCALE Q6HR SC 05/10/24 18:00 05/30/24 18:06 8 UNITS Dextrose 50 ml UD IV 05/10/24 17:15 Sodium Chloride 10 ml QSHIFT@10,22 IV 05/13/24 22:00 05/30/24 22:05 10 ML Albuterol 2.5 mg Q4HR NEB 05/15/24 14:00 05/30/24 18:40 2.5 MG Ipratropium [place] 0.5 mg Q4HR NEB 05/15/24 14:00 05/30/24 18:40 0.5 MG Phenylephrine HCl 80 mg/Sodium Chloride 250 ml @ 7.5 mls/hr Q24H IV 05/16/24 11:15 Norepinephrine Bitartrate 32 mg/ Sodium Chloride 250 ml @ 0.938 mls/ hr Q24H IV 05/16/24 11:15 05/28/24 22:23 3.75 MLS/HR Enteral Nutritional Formula 1,000 ml 30ML/HR GT 05/22/24 06:30 05/30/24 10:54 1,000 ML Nystatin 1 applic BID TOP 05/23/24 22:00 05/30/24 22:04 1 APPLIC Metoclopramide HCl 5 mg BID IV 05/23/24 22:00 05/30/24 22:02 5 MG Midazolam HCl 50 ml @ 1 mls/hr Q24H IV 05/24/24 03:00 05/27/24 02:42 5 MLS/HR Vancomycin HCl 0 ml @ 0 mls/hr UD IV 05/24/24 10:00 Octreotide Acetate 100 mcg TID SUBCUT 05/24/24 14:00 05/30/24 22:02 100 MCG Ursodiol 300 mg TID PO 05/25/24 14:00 05/30/24 22:09 300 MG Micafungin Sodium 100 mg/Sodium Chloride 100 ml @ 100 mls/hr DAILY IV 05/26/24 10:00 05/30/24 10:27 100 MLS/HR Lactulose 30 ml Q6HR NG 05/26/24 00:00 05/30/24 17:47 30 ML Midodrine 10 mg TID@0600,1200,1800 PO 05/28/24 12:00 05/30/24 17:47 10 MG Furosemide 20 mg DAILY IV 05/28/24 10:00 05/30/24 13:35 20 MG Purified Water 200 ml Q6HR GT 05/30/24 12:00 05/30/24 17:47 200 ML Methylprednisolone Sodium Succinate 20 mg DAILY IV 05/30/24 10:36 Dextrose 1,000 ml @ 50 mls/hr Q20H IV 05/30/24 10:15 05/30/24 10:49 50 MLS/HR objective General: Intubated sedated HEENT: NC/AT EOMI dry mucous membranes Heart: Tachycardic regular rhythm Abdomen: Soft nontender nondistended Extremity: No clubbing cyanosis or edema laboratory and microbiology Laboratory Tests 05/30/24 03:46 Test 05/30/24 03:46 Range/Units Serum Glucose 190 H 74-106 mg/dL Problems(with codes): (1) Jaundice (2) Aspiration pneumonia (3) Liver failure (4) Cirrhosis (5) Ascites (6) Pulmonary vascular congestion (7) Generalized weakness (8) Hepatic encephalopathy (9) Altered mental status (10) Transaminitis (11) Anemia (12) Urinary tract infection (13) Drug abuse Prognosis Assessment 63 y o male Hepatic encephalopathy ALOC Decompensated liver cirrhosis \Acute methamphetamine intoxication, Hepatitis-C Multidrug resistant ESBL urinary tract infection hypernatremia PLAN Continue supportive care Prognosis is guarded Patient is DNR family did not want trach or PEG Dietary Evaluation Review Comments: 1. Per RN, pt is able to drink liquid but unable to manage jello. Will Downgrade his CCHO-60 diet to pureed texture. 2. offer Glucern BID if PO is still poor 3. elevated BUN, f/u and reassess after pt has a GI and nephrology consult. 4. consider clinimix as a form of protein supplementation as pt has very low albumin. Expected Outcomes/Goals: Gradual wt loss, better DM control. Plan discussed with: Other (ICU Nurse) PAULINA BAINS MD May 30, 2024 22:26
[2024-05-31] VITALS (108 sets, daily range): BP systolic 69–124; BP diastolic 45–76; PULSE 86–98; RESP 8–22; TEMP 97.5–97.9; O2SAT 81–100
[2024-05-31 04:45] LABS: Basophils # (auto) 0 10 ^3/uL (0-0.2); Basophils % (auto) 0.2 % (0.0-2.0); Eosinophils # (auto) 0 10 ^3/uL (0-0.8); Hematocrit 28.9 % (41.0-53.0); Hemoglobin 8.9 g/dL (13.5-17.5); Lymphocytes # (auto) 0.2 10 ^3/uL (0.4-5.4); Lymphocytes % (auto) 1.4 % (10.0-50.0); Mean Corpuscular Hgb Conc. 30.8 g/dL (32.0-36.0); Mean Corpuscular Volume 97.5 fL (80.0-100.0); Monocytes # (auto) 0.5 10 ^3/uL (0-1.3); Monocytes % (auto) 3.8 % (0.0-12.0); Neutrophils # (auto) 13.3 10 ^3/uL (1.6-8.6); Neutrophils % (auto) 94.6 % (37.0-80.0); Nucleated Red Blood Cells % 0.1 %; Platelet Count (auto) 81 10^3/uL (140-450); Red Blood Cells 2.96 10^6/uL (4.5-5.90); Red Cell Distribution Width 29.9 % (11.8-14.3)
--- NOTE | 2024-05-31 05:11 | DVH ---
EXAM: XR Chest, 1 View CLINICAL INDICATION: S/p mechanical ventilation TECHNIQUE: Frontal view of the chest. COMPARISON: XY CHEST PORTABLE on DOS: 05/30/24, XY CHEST PORTABLE on DOS: 05/29/24, XY CHEST PORTABLE on DOS: 05/29/24, XY CHEST PORTABLE on DOS: 05/28/24, XY CHEST XRAY 1 VIEW on DOS: 05/27/24 FINDINGS: LUNGS AND PLEURAL SPACES: Pulmonary venous congestion. Right pleural effusion. Right basilar. No consolidation. No pneumothorax. HEART: Unremarkable. No cardiomegaly. MEDIASTINUM: Unremarkable. Normal mediastinal contour. BONES/JOINTS: Unremarkable. No acute fracture. TUBES, LINES AND DEVICES: Right peripherally inserted central catheter (PICC) tip in the superior v tere cava. OTHER FINDINGS: . Anterior below. IMPRESSION: 1. Pulmonary venous congestion. 2. Right pleural effusion.
[2024-05-31 05:14] LABS: Anion Gap 11 (5-15); Calcium 9.3 mg/dL (8.7-10.4); Carbon Dioxide 25 mmol/L (20-31); Potassium 3.7 mmol/L (3.5-5.1)
[2024-05-31 05:49] LABS: BUN/Creatinine Ratio 40.9 (10.0-20.0)
[2024-05-31 06:11] LABS: Chloride 113 mmol/L (98-107); Glucose 200 mg/dL (74-106); Sodium 149 mmol/L (136-145)
[2024-05-31 06:12] LABS: Alanine Aminotransferase 101 U/L (7-40); Albumin 2.7 g/dL (3.2-4.8); Alkaline Phosphatase 259 U/L (46-116); Aspartate Aminotransferase 87 U/L (13-40); Bilirubin, Total 27.6 mg/dL (0.2-1.0); Blood Urea Nitrogen 99 mg/dL (9-23); Total Protein 5.4 g/dL (5.7-8.2)
[2024-05-31 07:02] LABS: Anisocytosis Slight; Ovalocytes FEW; Platelet Estimate Decreased
[2024-05-31 07:43] LABS: Base Excess -2.4 mmol/L (-2.0-3.0)
[2024-05-31] MEDS: ALBUMIN 25% 100 ML IV ONE (09:20)
--- NOTE | 2024-05-31 10:00 | DVHPN2 ---
Progress Note Date Seen: May 31, 2024 Medical Necessity Reason Pt with a Central, PICC or Fol: Yes The following are medically ne: PICC Line, Mcduffie Catheter Reason for mcduffie catheter: Strict I&O Subjective Patient reports: Other (AAOxO unchanged) Review of Systems: RESPIRATORY:Abnormal, NEURO:Abnormal Objective vital signs Vital Sign Date Time Temp Pulse Resp B/P (MAP) Pulse Ox O2 Delivery O2 Flow Rate FiO2 05/31/24 09:38 99 Nasal Cannula 2.0 05/31/24 09:38 28 05/31/24 09:38 89 19 05/31/24 06:31 111/58 (75) 05/31/24 04:00 97.7 97.7 Total Intake and Output 05/30/24 05/30/24 05/31/24 15:00 23:00 07:00 Intake Total 272.4 ml 872.465 ml 1020.504 ml Output Total 1600 ml 800 ml Balance 272.4 ml -727.535 ml 220.504 ml medications Current Medications Medications Dose Ordered Sig/Kenisha Route Start Time Stop Time Status Last Admin Dose Admin Sodium Chloride 10 ml Q8HR IV 05/07/24 06:00 05/31/24 06:23 10 ML Ondansetron HCl 4 mg Q4HP PRN IV 05/06/24 22:15 Pantoprazole Sodium 40 mg BID IV 05/08/24 22:00 05/30/24 22:01 40 MG Thiamine HCl 100 mg DAILY IV 05/10/24 10:00 05/30/24 10:24 100 MG Flecainide Acetate 100 mg Q12HR PO 05/09/24 22:00 05/30/24 22:03 100 MG Folic Acid 1 mg DAILY PO 05/11/24 10:00 05/30/24 10:27 1 MG Diagnostic Test (Pha) 1 strip Q6HR 05/10/24 18:00 05/31/24 06:22 1 STRIP Insulin Human Regular FOLLOW SLIDING SCALE Q6HR SC 05/10/24 18:00 05/31/24 06:20 4 UNITS Dextrose 50 ml UD IV 05/10/24 17:15 Sodium Chloride 10 ml QSHIFT@10,22 IV 05/13/24 22:00 05/30/24 22:05 10 ML Albuterol 2.5 mg Q4HR NEB 05/15/24 14:00 05/31/24 09:38 2.5 MG Ipratropium [place] 0.5 mg Q4HR NEB 05/15/24 14:00 05/31/24 09:38 0.5 MG Norepinephrine Bitartrate 32 mg/ Sodium Chloride 250 ml @ 0.938 mls/ hr Q24H IV 05/16/24 11:15 05/28/24 22:23 3.75 MLS/HR Enteral Nutritional Formula 1,000 ml 30ML/HR GT 05/22/24 06:30 05/30/24 10:54 1,000 ML Nystatin 1 applic BID TOP 05/23/24 22:00 05/30/24 22:04 1 APPLIC Metoclopramide HCl 5 mg BID IV 05/23/24 22:00 05/30/24 22:02 5 MG Midazolam HCl 50 ml @ 1 mls/hr Q24H IV 05/24/24 03:00 05/27/24 02:42 5 MLS/HR Vancomycin HCl 0 ml @ 0 mls/hr UD IV 05/24/24 10:00 Octreotide Acetate 100 mcg TID SUBCUT 05/24/24 14:00 05/31/24 06:19 100 MCG Ursodiol 300 mg TID PO 05/25/24 14:00 05/31/24 06:18 300 MG Micafungin Sodium 100 mg/Sodium Chloride 100 ml @ 100 mls/hr DAILY IV 05/26/24 10:00 05/30/24 10:27 100 MLS/HR Lactulose 30 ml Q6HR NG 05/26/24 00:00 05/31/24 06:18 30 ML Midodrine 10 mg TID@0600,1200,1800 PO 05/28/24 12:00 05/31/24 06:18 10 MG Furosemide 20 mg DAILY IV 05/28/24 10:00 05/30/24 13:35 20 MG Purified Water 200 ml Q6HR GT 05/30/24 12:00 05/31/24 06:22 200 ML Methylprednisolone Sodium Succinate 20 mg DAILY IV 05/30/24 10:36 Dextrose 1,000 ml @ 50 mls/hr Q20H IV 05/30/24 10:15 05/30/24 10:49 50 MLS/HR Examination: GENERAL:Abnormal, LUNGS:Abnormal, ABDOMEN:Abnormal, SKIN:Abnormal, NEURO:Abnormal laboratory and microbiology Laboratory Tests 05/31/24 03:42 Test 05/31/24 03:42 Range/Units Serum Glucose 200 H 74-106 mg/dL Microbiology Date/Time Source Procedure Growth Status 05/26/24 16:23 Blood Blood Culture - Final Staphylococcus epidermidis Complete 05/23/24 16:00 Sputum Gram Stain - Final Complete 05/23/24 16:00 Respiratory Culture - Final Staphylococcus haemolyticus Presumptive [place] albicans Complete 05/23/24 12:30 Urine - [place] Urine Culture - Final Complete 05/13/24 14:00 Nose MRSA Screen - Final Complete Problem List/Assessment/Plan Problem List/Assessment/Plan Acute kidney injury hemodynamically mediated in the setting of hypotension and shock Acute respiratory failure in the setting of aspiration pneumonia --> compassinate extubation Hepatic encephalopathy Decompensated liver cirrhosis \Acute methamphetamine intoxication, Hepatitis-C Multidrug resistant ESBL urinary tract infection hypernatremia free water based on deficit lasix IV w/ IV albumin replace K as needed I/O grim prognosis conservative treatment, not candidate for senior care dialysis Plan discussed with: Other My Orders My Orders Orders - PIETRO VILLEDA MD Procedure Category Date Status Time Basic Metabolic Panel LAB 06/01/24 Verified 04:00 Dietary Evaluation Review Comments: 1. Per RN, pt is able to drink liquid but unable to manage jello. Will Downgrade his CCHO-60 diet to pureed texture. 2. offer Glucern BID if PO is still poor 3. elevated BUN, f/u and reassess after pt has a GI and nephrology consult. 4. consider clinimix as a form of protein supplementation as pt has very low albumin. Expected Outcomes/Goals: Gradual wt loss, better DM control. PIETRO VILLEDA MD May 31, 2024 10:00
--- NOTE | 2024-05-31 10:56 | DVHPN2 ---
Progress Note - Dictate Date Seen: May 31, 2024 Medical Necessity Reason Pt with a Central, PICC or Fol: Yes The following are medically ne: PICC Line, Mcduffie Catheter Reason for mcduffie catheter: Strict I&O Subjective Mr. Linder is a 63 years old gentleman with a history of diabetes, liver cirrhosis, hepatitis-C infection, cancer, the patient was brought to the [facility] on 05/06/2024 with a chief complaint of overdose. I have seen and examined the patient was, discussed with his nurse. He is extubated, respond to verbal stimuli, he follows a few of my verbal commands, he moves the arms, at times feet spontaneously. He is very weak Blood culture, 05/23/2024: Gram-positive cocci in clusters Urine culture, 05/07/2024: Klebsiella pneumoniae Stool Occult blood, 06/09/2024: Positive UDS, 05/07/2024: Opiates, amphetamine Plasma alcohol, 05/06/2024: <3 Urinalysis, 05/07/2024: WBC: 193, urine leukocyte esterase: 2+ ABG, 05/07/2024: Combined respiratory and metabolic acidosis, 05/13/2024: Metabolic acidosis, 05/15/2024: Respiratory acidosis, 05/19/2024: Respiratory acidosis, 05/25/2024: Respiratory acidosis WBC/HB/PLT/MCV, 05/25/2024: 19.5/8.4/100/93.8 PT/INR/PTT, 05/16/2024: 19.4/1.96, 05/20/2024: 17.2/1.71 BUN/CR, 05/25/2024: 73/1.95 GFR, 10/20/2024: 38 TBI/AST/ALT/AP, 05/25/2024: 25.2/133/76/292 NH3, 05/07/24: 84, 05/12/2024: 30, 05/13/24: 82, 05/16/2024: 43, 05/24/2024: 37 EEG, 05/25/24: Remarkably abnormal EEG Chest x-ray, 05/07/2024: 1. Interval placement of enteric tube with terminus just distal to the expected level of the GEJ. 2. Interval increase in left lung base pulmonary markings suggestive of possible developing infiltrate. 3. Stable diffuse prominence of the pulmonary vasculature. CT head, 05/07/2024: No acute intracranial hemorrhage, midline shift or mass effect. If symptoms persist, further evaluation with MRI is recommended CVA, neck, 05/13/2024: No hemodynamically significant stenosis, aneurysm or dissection involving the major intracranial and neck vessels. The suggested fistulous connection noted on ultrasound between the distal left common carotid artery and left internal jugular vein is not definitely visualized. No contrast extravasation is noted. CT head, 05/25/2024: No acute intracranial process vital signs Vital Sign Date Time Temp Pulse Resp B/P (MAP) Pulse Ox O2 Delivery O2 Flow Rate FiO2 05/31/24 10:28 107/65 05/31/24 09:38 99 Nasal Cannula 2.0 05/31/24 09:38 28 05/31/24 09:38 89 19 05/31/24 04:00 97.7 97.7 Total Intake and Output 05/30/24 05/30/24 05/31/24 15:00 23:00 07:00 Intake Total 272.4 ml 872.465 ml 1020.504 ml Output Total 1600 ml 800 ml Balance 272.4 ml -727.535 ml 220.504 ml medications Current Medications Medications Dose Ordered Sig/Kenisha Route Start Time Stop Time Status Last Admin Dose Admin Sodium Chloride 10 ml Q8HR IV 05/07/24 06:00 05/31/24 06:23 10 ML Ondansetron HCl 4 mg Q4HP PRN IV 05/06/24 22:15 Pantoprazole Sodium 40 mg BID IV 05/08/24 22:00 05/31/24 10:52 40 MG Thiamine HCl 100 mg DAILY IV 05/10/24 10:00 05/31/24 10:26 100 MG Flecainide Acetate 100 mg Q12HR PO 05/09/24 22:00 05/31/24 10:27 100 MG Folic Acid 1 mg DAILY PO 05/11/24 10:00 05/31/24 10:27 1 MG Diagnostic Test (Pha) 1 strip Q6HR 05/10/24 18:00 05/31/24 06:22 1 STRIP Insulin Human Regular FOLLOW SLIDING SCALE Q6HR SC 05/10/24 18:00 05/31/24 06:20 4 UNITS Dextrose 50 ml UD IV 05/10/24 17:15 Sodium Chloride 10 ml QSHIFT@10,22 IV 05/13/24 22:00 05/30/24 22:05 10 ML Albuterol 2.5 mg Q4HR NEB 05/15/24 14:00 05/31/24 09:38 2.5 MG Ipratropium [place] 0.5 mg Q4HR NEB 05/15/24 14:00 05/31/24 09:38 0.5 MG Norepinephrine Bitartrate 32 mg/ Sodium Chloride 250 ml @ 0.938 mls/ hr Q24H IV 05/16/24 11:15 05/28/24 22:23 3.75 MLS/HR Nystatin 1 applic BID TOP 05/23/24 22:00 05/31/24 10:26 1 APPLIC Metoclopramide HCl 5 mg BID IV 05/23/24 22:00 05/31/24 10:24 5 MG Midazolam HCl 50 ml @ 1 mls/hr Q24H IV 05/24/24 03:00 05/27/24 02:42 5 MLS/HR Vancomycin HCl 0 ml @ 0 mls/hr UD IV 05/24/24 10:00 Octreotide Acetate 100 mcg TID SUBCUT 05/24/24 14:00 05/31/24 06:19 100 MCG Ursodiol 300 mg TID PO 05/25/24 14:00 05/31/24 06:18 300 MG Micafungin Sodium 100 mg/Sodium Chloride 100 ml @ 100 mls/hr DAILY IV 05/26/24 10:00 05/31/24 10:28 100 MLS/HR Lactulose 30 ml Q6HR NG 05/26/24 00:00 05/31/24 06:18 30 ML Midodrine 10 mg TID@0600,1200,1800 PO 05/28/24 12:00 05/31/24 06:18 10 MG Furosemide 20 mg DAILY IV 05/28/24 10:00 05/31/24 10:28 20 MG Purified Water 200 ml Q6HR GT 05/30/24 12:00 05/31/24 06:22 200 ML Methylprednisolone Sodium Succinate 20 mg DAILY IV 05/30/24 10:36 05/31/24 10:27 20 MG Dextrose 1,000 ml @ 50 mls/hr Q20H IV 05/30/24 10:15 05/30/24 10:49 50 MLS/HR Enteral Nutritional Formula 1,000 ml 30ML/HR GT 05/31/24 10:15 UNV objective The patient is well-nourished and well-developed with no distress. The patient is intubated MENTAL STATUS: Subjective CRANIAL NERVES: Pupils are equally round and reactive.There are corneal reflexes and doll's eyes phenomenon. No signs of facial weakness. There are gagging or coughing reflexes. SENSATION: Responses to touch MOTOR: Normal tone in the upper and lower extremity. Normal muscle bulk. No fasciculations. Movement in the arms and legs noticed. REFLEXES: Deep tendon reflexes are symmetrical. Upgoing toes bilaterally CEREBELLAR/COORDINATION: Deferred GAIT/STATION: deferred. laboratory and microbiology Laboratory Tests 05/31/24 03:42 Test 05/31/24 03:42 Range/Units Serum Glucose 200 H 74-106 mg/dL Problem List Altered mental status Metabolic encephalopathy Hepatic encephalopathy Hypoxic encephalopathy Sepsis, septic shock Liver failure Liver cirrhosis Coagulopathy Jaundice Acute kidney failure Urinary tract infection Pneumonia Improving Assessment/Plan Monitoring Supportive treatment ICU care Stabilize vitals/pressor drip Respiratory support/vent management Oxygen IV antibiotics Thiamine supplementation GI prophylaxis/Protonix Pulmonology on case Nephrology on case GI on case More recommendation per clinical course This medical document was created using an electronic medical record system with [employer] dictation system. Although this document has been carefully reviewed, there may still be some phonetic and typographical errors. These areas are purely typographical due to imperfections of the software programs, and do not reflect any compromise in the patient's medical care Prognosis poor Dietary Evaluation Review Comments: 1. Per RN, pt is able to drink liquid but unable to manage jello. Will Downgrade his CCHO-60 diet to pureed texture. 2. offer Glucern BID if PO is still poor 3. elevated BUN, f/u and reassess after pt has a GI and nephrology consult. 4. consider clinimix as a form of protein supplementation as pt has very low albumin. Expected Outcomes/Goals: Gradual wt loss, better DM control. Plan discussed with: Other GETACHEW BLACKWOOD MD May 31, 2024 10:56
[2024-05-31] MEDS: VANCOMYCIN 500mg/100mL 100 ML IV ONE (18:44)
--- NOTE | 2024-05-31 18:47 | DVHPNRES ---
Progress Note Date Seen: May 31, 2024 Resident Creating Document: TIERRA GALEAS RESIDENT Medical Necessity Reason Pt with a Central, PICC or Fol: Yes The following are medically ne: PICC Line, Mcduffie Catheter Reason for mcduffie catheter: Strict I&O Subjective Review of Systems Patient is a 63-year-old male with a past medical history of liver cirrhosis likely secondary to hep C, liver shunt, CHF, diabetes mellitus, prostate cancer, history of lower GI bleed status post blood transfusion was brought to the ER with a chief complaint of drug overdose. Information gathered from reviewing the chart and talking with the patient's family, as per he was found gargling and unresponsive in a car, possible overdose of morphine following which EMS were called. EMS gave the patient Narcan and he woke up but was unable to recall what happened. Urine drug screen in the ER was positive for amphetamine and opiates. Was obtunded and was on oxygen support. While in the ER patient went into atrial fibrillation rapid ventricular response following which she was given diltiazem. Patient while in the hospital had altered mental status, sepsis likely due to UTI with the underlying liver cirrhosis had to be put on mechanical ventilation and put on vasopressor support. Patient was transferred to the ICU for further care. In ICU patient was treated with meropenem for Klebsiella pneumoniae ESBL multidrug resistant and also coverage for suspected aspiration pneumonia in the right lower lung, diuresis for with the Lasix, rifaximin and lactulose for hepatic encephalopathy, Patient's blood cultures were done twice and did not show any growth after 5 days, respiratory sputum cultures did not show any growth. Patient's mental status remained obtunded even after turning of the sedation, had vasopressor requirements therefore he could not be extubated. Past medical history: Liver cirrhosis likely secondary to hep C, liver shunt, CHF, type 2 diabetes mellitus, prostate cancer status post radiotherapy, history of lower GI bleed s/p blood transfusions Past surgical history: Hernia repair, tips, live knee surgery Social history: Patient lives with the , history of smoking less than 1 pack per day, reported alcohol and illicit drug usage Home medications: Lasix 20 mg b.i.d., gabapentin 300 mg q.8 hours, insulin glargine 15 units SC b.i.d., spironolactone 50 mg daily Review of systems Patient seen and examined at the bedside. - patient has been weaned off sedation since . on Norepinephrine, trying to wean off maintaining a MAP> 65. - patient is delirious, responds to verbal and tactile stimulus - patient did not have any fever, WBC count trending down. - patient was had 2 bowel movements overnight Objective vital signs Vital Sign Date Time Temp Pulse Resp B/P (MAP) Pulse Ox O2 Delivery O2 Flow Rate FiO2 05/31/24 18:19 95 05/31/24 18:18 13 99 Nasal Cannula* 2 28 05/31/24 16:30 104/58 (73) 05/31/24 16:00 97.9 97.9 Total Intake and Output 05/30/24 05/30/24 05/31/24 15:00 23:00 07:00 Intake Total 272.4 ml 872.465 ml 1073.317 ml Output Total 1600 ml 800 ml Balance 272.4 ml -727.535 ml 273.317 ml medications Current Medications Medications Dose Ordered Sig/Kenisha Route Start Time Stop Time Status Last Admin Dose Admin Sodium Chloride 10 ml Q8HR IV 05/07/24 06:00 05/31/24 14:00 10 ML Ondansetron HCl 4 mg Q4HP PRN IV 05/06/24 22:15 Pantoprazole Sodium 40 mg BID IV 05/08/24 22:00 05/31/24 10:52 40 MG Thiamine HCl 100 mg DAILY IV 05/10/24 10:00 05/31/24 10:26 100 MG Flecainide Acetate 100 mg Q12HR PO 05/09/24 22:00 05/31/24 10:27 100 MG Folic Acid 1 mg DAILY PO 05/11/24 10:00 05/31/24 10:27 1 MG Diagnostic Test (Pha) 1 strip Q6HR 05/10/24 18:00 05/31/24 18:03 1 STRIP Insulin Human Regular FOLLOW SLIDING SCALE Q6HR SC 05/10/24 18:00 05/31/24 18:09 8 UNITS Dextrose 50 ml UD IV 05/10/24 17:15 Sodium Chloride 10 ml QSHIFT@10,22 IV 05/13/24 22:00 05/31/24 10:00 10 ML Albuterol 2.5 mg Q4HR NEB 05/15/24 14:00 05/31/24 14:44 2.5 MG Ipratropium [place] 0.5 mg Q4HR NEB 05/15/24 14:00 05/31/24 14:44 0.5 MG Norepinephrine Bitartrate 32 mg/ Sodium Chloride 250 ml @ 0.938 mls/ hr Q24H IV 05/16/24 11:15 05/28/24 22:23 3.75 MLS/HR Nystatin 1 applic BID TOP 05/23/24 22:00 05/31/24 10:26 1 APPLIC Metoclopramide HCl 5 mg BID IV 05/23/24 22:00 05/31/24 10:24 5 MG Vancomycin HCl 0 ml @ 0 mls/hr UD IV 05/24/24 10:00 Octreotide Acetate 100 mcg TID SUBCUT 05/24/24 14:00 05/31/24 15:21 100 MCG Ursodiol 300 mg TID PO 05/25/24 14:00 05/31/24 15:04 300 MG Lactulose 30 ml Q6HR NG 05/26/24 00:00 05/31/24 18:03 30 ML Midodrine 10 mg TID@0600,1200,1800 PO 05/28/24 12:00 05/31/24 18:03 10 MG Furosemide 20 mg DAILY IV 05/28/24 10:00 05/31/24 10:28 20 MG Purified Water 200 ml Q6HR GT 05/30/24 12:00 05/31/24 18:03 200 ML Methylprednisolone Sodium Succinate 20 mg DAILY IV 05/30/24 10:36 05/31/24 10:27 20 MG Dextrose 1,000 ml @ 50 mls/hr Q20H IV 05/30/24 10:15 05/30/24 10:49 50 MLS/HR Enteral Nutritional Formula 1,000 ml 30ML/HR GT 05/31/24 10:15 Examination Gen - conjunctival pallor present , scleral icterus present, no cyanosis, no clubbing, no LAD, bilateral 2+ pitting pedal edema Skin - Patients skin is warm and dry, multiple spider angiomata skin on the chest, erythematous rash seen in the groin on both the sides HEENT - normocephalic, atraumatic, moist mucous membranes. Neck - no LAD, no JV distention Pulmonary - decreased breath sounds in the right lower lung, left basilar crackles, no wheezing, no stridor. cardiovascular - variable S1,S2 heard, no added sounds, no murmurs heard. capillary refill normal <2 secs. GI - soft abdomen. no hepatospleenomegaly. Bowel Sounds normoactive Neurological - patient was delirious, responds to tactile stimulus but not able to maintain eye contact for more than 5 seconds, plantar reflex downgoing, , pupils equal and reactive laboratory and microbiology Laboratory Tests 05/31/24 03:42 Test 05/31/24 03:42 Range/Units Serum Glucose 200 H 74-106 mg/dL Microbiology Date/Time Source Procedure Growth Status 05/26/24 16:23 Blood Blood Culture - Final Staphylococcus epidermidis Complete 05/23/24 16:00 Sputum Gram Stain - Final Complete 05/23/24 16:00 Respiratory Culture - Final Staphylococcus haemolyticus Presumptive Erickson albicans Complete 05/23/24 12:30 Urine - Mcduffie [place] Urine Culture - Final Complete 05/13/24 14:00 Nose MRSA Screen - Final Complete Problem List/Assessment/Plan Problem List/Assessment/Plan Neurological # Acute metabolic encephalopathy likely hepatic encephalopathy/toxic drug- induced/anoxic - head CT 05/07/24 showed no acute intracranial hemorrhage, midline shift or mass effect - urine drug screen at admission positive for opiates and amphetamines - ammonia trending down, on lactulose Respiratory # Acute hypoxemic/hypercarbic respiratory failure # bilateral lower lobe pneumonia likely due to Gram+/-bacteria # bilateral pleural effusion # pulmonary edema with right-sided pleural effusion - on oxygen via nasal cannula at 4 L/min - ABG reviewed today - respiratory acidosis - chest x-ray shows bilateral pulmonary edema with blunting of the right CP angle - on vancomycin - albuterol and ipratropium med nebs q.4 hours - sputum cultures showing the growth of erickson, Cardiovascular # Septic shock likely d/t UTI vs pneumonia # new onset atrial fibrillation with RVR # NSTEMI type 2 likely due to demand supply mismatch - Echo shows LVEF 60% with concentric LVH, right atrial enlargement, right ventricular enlargement - on vasopressor support with norepinephrine, maintaining MAP > 65mmhg - flecainide 100 mg b.i.d. for AFib - [id number] Vasc- 1, has-bled 2 , currently anticoagulation is held, with the patient SOB positive and history of GI bleeding Gastrointestinal # decompensated liver cirrhosis # history of hepatitis-C infection # history of heavy alcohol use # ?SBP # ascites # hepatic encephalopathy - noted increase in bilirubin - low albumin, elevated PT INR, thrombocytopenia - lactulose 30 mL q.6h - currently on tube feeding at 30 mL/hour - Protonix 40 mg IV b.i.d. - Ursodiol 300 mg b.i.d. - methylprednisolone 20 mg q.d. - lasix Nephrology # acute kidney injury likely hemodynamically mediated due to shock,+ contrast likely ATN # hypernatremia - BUN and creatinine, trending down - FENa calculated today at 3% - free water deficit 3 L - free water 200 mL via NG tube q.6 hours - pharmacy conveyed that the vancomycin trough to be kept below 15 - D5W at 50 mL/hour Infectious disease # septic shock likely due to UTI versus pneumonia versus ?SBP # candidal infection in the groin - initial urine culture showed growth of multidrug resistant Klebsiella ESBL, on meropenem - initial blood cultures, respiratory sputum cultures negative - sputum cultures preliminary show growth of young colonies - nystatin powder q.12h for erickson - vancomycin Endocrine # Insulin dependent Diabetes mellitus with hyperglycemia - On ISS - goal blood glucose 140-180 mg/dL Polysubstance Use Acute opiate/methamphetamine intoxication DVT prophylaxis: Sequential compression device PUD prophylaxis: Protonix PICC line in the left forearm- placed on 05/13/2024 Mcduffie's catheter- placed on 05/07/2024 Patient was extubated on 05/29. Continues to be on norepinephrine. Patient's guarded prognosis explained to the in detail and the need for BiPAP going forward if the patient's CO2 keeps rising and since he is altered he may end up aspirating. understood and wants the patient to be put on BiPAP if needed but no intubation or chest compressions. Goals of care discussed with the patient's Lorna about the patient's prognosis .. prognosis guarded Code status- modified DNR-no intubation, no chest compression Critical care time excluding procdures spent: 64 mins Plan discussed with Dr. Amaro Plan discussed with: Spouse (Lorna), Other (RN ( Carmela )) My Orders My Orders Orders - TIERRA GALEAS RESIDENT Procedure Category Date Status Time Chest Xray 1 View XY 05/31/24 Resulted 04:00 Abg W/ Co-Ox RT 05/31/24 Logged 04:00 Blood Culture CATHRYN 05/31/24 Uncollected 08:23 Blood Culture CATHRYN 05/31/24 In Process 13:38 Complete Blood Count LAB 06/01/24 Verified 04:00 Vancomycin,Random LAB 06/01/24 Verified 04:00 Vancomycin Per ANTHONY 05/31/24 In Process Pharmacy Protoc 17:03 Dietary Evaluation Review Comments: 1. Per RN, pt is able to drink liquid but unable to manage jello. Will Downgrade his CCHO-60 diet to pureed texture. 2. offer Glucern BID if PO is still poor 3. elevated BUN, f/u and reassess after pt has a GI and nephrology consult. 4. consider clinimix as a form of protein supplementation as pt has very low albumin. Expected Outcomes/Goals: Gradual wt loss, better DM control. Date of Service: May 31, 2024 Billing Provider: JUVENAL AMARO MD Common Visit Codes: [id number] CARE 30-74 MIN TIERRA GALEAS RESIDENT May 31, 2024 18:47 JUVENAL AMARO MD Jun 01, 2024 14:31
[2024-06-01] VITALS (106 sets, daily range): BP systolic 87–124; BP diastolic 42–74; PULSE 78–97; RESP 7–28; TEMP 97–97.7; O2SAT 90–100
[2024-06-01 03:48] LABS: Eosinophils # (auto) 0 10 ^3/uL (0-0.8); Lymphocytes # (auto) 0.2 10 ^3/uL (0.4-5.4); Monocytes # (auto) 0.3 10 ^3/uL (0-1.3); Neutrophils # (auto) 10.7 10 ^3/uL (1.6-8.6); Nucleated Red Blood Cells % 0.2 %; Platelet Count (auto) 63 10^3/uL (140-450); White Blood Cell 11.3 10^3/uL (4.4-10.8)
[2024-06-01 03:51] LABS: Basophils # (auto) 0 10 ^3/uL (0-0.2); Basophils % (auto) 0.4 % (0.0-2.0); Hematocrit 27.1 % (41.0-53.0); Hemoglobin 8.4 g/dL (13.5-17.5); Lymphocytes % (auto) 1.7 % (10.0-50.0); Mean Corpuscular Hemoglobin 30.6 pg (28.0-32.0); Mean Corpuscular Volume 98.8 fL (80.0-100.0); Monocytes % (auto) 2.8 % (0.0-12.0); Neutrophils % (auto) 95.1 % (37.0-80.0); Red Blood Cells 2.75 10^6/uL (4.5-5.90); Red Cell Distribution Width 29.3 % (11.8-14.3)
[2024-06-01 04:06] LABS: Calcium 9.1 mg/dL (8.7-10.4); Potassium 3.8 mmol/L (3.5-5.1)
[2024-06-01 04:07] LABS: Anion Gap 10 (5-15); BUN/Creatinine Ratio 43.7 (10.0-20.0)
[2024-06-01 04:51] LABS: Alanine Aminotransferase 96 U/L (7-40); Albumin 2.7 g/dL (3.2-4.8); Alkaline Phosphatase 251 U/L (46-116); Aspartate Aminotransferase 79 U/L (13-40); Bilirubin, Total 28.6 mg/dL (0.2-1.0); Carbon Dioxide 25 mmol/L (20-31); Chloride 114 mmol/L (98-107); Glucose 224 mg/dL (74-106); Sodium 149 mmol/L (136-145); Total Protein 5.1 g/dL (5.7-8.2)
[2024-06-01 04:52] LABS: Blood Urea Nitrogen 87 mg/dL (9-23)
--- NOTE | 2024-06-01 05:04 | DVH ---
EXAM: XR Chest, 1 View CLINICAL INDICATION: right pleural eff., on ventilator TECHNIQUE: Frontal view of the chest. COMPARISON: XY CHEST XRAY 1 VIEW on DOS: 05/31/24, XY CHEST PORTABLE on DOS: 05/30/24, XY CHEST YOCASTA BLE on DOS: 05/29/24, XY CHEST PORTABLE on DOS: 05/29/24, XY CHEST PORTABLE on DOS: 05/28/24 FINDINGS: LUNGS AND PLEURAL SPACES: Pulmonary venous congestion. Right pleural effusion. Right basilar. No consolidation. No pneumothorax. HEART: Unremarkable. No cardiomegaly. MEDIASTINUM: Unremarkable. Normal mediastinal contour. BONES/JOINTS: Unremarkable. No acute fracture. TUBES, LINES AND DEVICES: Right peripherally inserted central catheter (PICC) tip in the superior v tere cava. Enteric tube tip in the stomach. OTHER FINDINGS: . IMPRESSION: 1. Pulmonary venous congestion. 2. Right pleural effusion.
[2024-06-01 06:40] LABS: Anisocytosis Slight; Ovalocytes FEW; Platelet Estimate Decreased
--- NOTE | 2024-06-01 11:13 | DVHPN2 ---
Progress Note - Dictate Date Seen: Jun 01, 2024 Medical Necessity Reason Pt with a Central, PICC or Fol: Yes The following are medically ne: PICC Line, Mcduffie Catheter Reason for mcduffie catheter: Strict I&O Subjective Mr. Linder is a 63 years old gentleman with a history of diabetes, liver cirrhosis, hepatitis-C infection, cancer, the patient was brought to the [facility] on 05/06/2024 with a chief complaint of overdose. I have seen and examined the patient was, discussed with his nurse. He respond to verbal stimuli, he follows a few of my verbal commands, he moves the arms, He said "water" He is physically stronger Blood culture, 05/23/2024: Gram-positive cocci in clusters Urine culture, 05/07/2024: Klebsiella pneumoniae Stool Occult blood, 06/09/2024: Positive UDS, 05/07/2024: Opiates, amphetamine Plasma alcohol, 05/06/2024: <3 Urinalysis, 05/07/2024: WBC: 193, urine leukocyte esterase: 2+ ABG, 05/07/2024: Combined respiratory and metabolic acidosis, 05/13/2024: Metabolic acidosis, 05/15/2024: Respiratory acidosis, 05/19/2024: Respiratory acidosis, 05/25/2024: Respiratory acidosis WBC/HB/PLT/MCV, 05/25/2024: 19.5/8.4/100/93.8 PT/INR/PTT, 05/16/2024: 19.4/1.96, 05/20/2024: 17.2/1.71 BUN/CR, 05/25/2024: 73/1.95 GFR, 10/20/2024: 38 TBI/AST/ALT/AP, 05/25/2024: 25.2/133/76/292 NH3, 05/07/24: 84, 05/12/2024: 30, 05/13/24: 82, 05/16/2024: 43, 05/24/2024: 37 EEG, 05/25/24: Remarkably abnormal EEG Chest x-ray, 05/07/2024: 1. Interval placement of enteric tube with terminus just distal to the expected level of the GEJ. 2. Interval increase in left lung base pulmonary markings suggestive of possible developing infiltrate. 3. Stable diffuse prominence of the pulmonary vasculature. CT head, 05/07/2024: No acute intracranial hemorrhage, midline shift or mass effect. If symptoms persist, further evaluation with MRI is recommended CVA, neck, 05/13/2024: No hemodynamically significant stenosis, aneurysm or dissection involving the major intracranial and neck vessels. The suggested fistulous connection noted on ultrasound between the distal left common carotid artery and left internal jugular vein is not definitely visualized. No contrast extravasation is noted. CT head, 05/25/2024: No acute intracranial process vital signs Vital Sign Date Time Temp Pulse Resp B/P (MAP) Pulse Ox O2 Delivery O2 Flow Rate FiO2 06/01/24 10:11 105/55 06/01/24 10:00 12 99 Nasal Cannula* 2 28 06/01/24 10:00 88 06/01/24 04:00 97.7 97.7 Total Intake and Output 05/31/24 05/31/24 06/01/24 15:00 23:00 07:00 Intake Total 522.504 ml 927.501 ml 934.938 ml Output Total 2450 ml 1425 ml Balance 522.504 ml -1522.499 ml -490.062 ml medications Current Medications Medications Dose Ordered Sig/Kenisha Route Start Time Stop Time Status Last Admin Dose Admin Sodium Chloride 10 ml Q8HR IV 05/07/24 06:00 06/01/24 05:54 10 ML Ondansetron HCl 4 mg Q4HP PRN IV 05/06/24 22:15 Pantoprazole Sodium 40 mg BID IV 05/08/24 22:00 06/01/24 10:11 40 MG Thiamine HCl 100 mg DAILY IV 05/10/24 10:00 06/01/24 10:28 100 MG Flecainide Acetate 100 mg Q12HR PO 05/09/24 22:00 06/01/24 10:13 100 MG Folic Acid 1 mg DAILY PO 05/11/24 10:00 06/01/24 10:28 1 MG Diagnostic Test (Pha) 1 strip Q6HR 05/10/24 18:00 06/01/24 06:02 1 STRIP Insulin Human Regular FOLLOW SLIDING SCALE Q6HR SC 05/10/24 18:00 06/01/24 05:56 4 UNITS Dextrose 50 ml UD IV 05/10/24 17:15 Sodium Chloride 10 ml QSHIFT@10,22 IV 05/13/24 22:00 06/01/24 10:22 10 ML Albuterol 2.5 mg Q4HR NEB 05/15/24 14:00 06/01/24 09:32 2.5 MG Ipratropium [place] 0.5 mg Q4HR NEB 05/15/24 14:00 06/01/24 09:32 0.5 MG Norepinephrine Bitartrate 32 mg/ Sodium Chloride 250 ml @ 0.938 mls/ hr Q24H IV 05/16/24 11:15 05/28/24 22:23 3.75 MLS/HR Nystatin 1 applic BID TOP 05/23/24 22:00 06/01/24 10:13 1 APPLIC Metoclopramide HCl 5 mg BID IV 05/23/24 22:00 06/01/24 10:13 5 MG Vancomycin HCl 0 ml @ 0 mls/hr UD IV 05/24/24 10:00 Octreotide Acetate 100 mcg TID SUBCUT 05/24/24 14:00 06/01/24 05:52 100 MCG Ursodiol 300 mg TID PO 05/25/24 14:00 06/01/24 05:51 300 MG Lactulose 30 ml Q6HR NG 05/26/24 00:00 06/01/24 05:53 30 ML Midodrine 10 mg TID@0600,1200,1800 PO 05/28/24 12:00 06/01/24 05:51 10 MG Furosemide 20 mg DAILY IV 05/28/24 10:00 06/01/24 10:11 20 MG Purified Water 200 ml Q6HR GT 05/30/24 12:00 06/01/24 05:53 200 ML Methylprednisolone Sodium Succinate 20 mg DAILY IV 05/30/24 10:36 06/01/24 10:13 20 MG Dextrose 1,000 ml @ 50 mls/hr Q20H IV 05/30/24 10:15 06/01/24 05:51 50 MLS/HR Enteral Nutritional Formula 1,000 ml 30ML/HR GT 05/31/24 10:15 objective The patient is well-nourished and well-developed with no distress MENTAL STATUS: Subjective CRANIAL NERVES: Pupils are equally round and reactive.There are conjugated eye movement. No signs of facial weakness. Sensorimotor examined in bilateral transplant distribution is unremarkable. SENSATION: Responses to touch MOTOR: Normal tone in the upper and lower extremity. Normal muscle bulk. No fasciculations. Movement in the arms REFLEXES: Deep tendon reflexes are symmetrical. Upgoing toes bilaterally CEREBELLAR/COORDINATION: Deferred GAIT/STATION: deferred. laboratory and microbiology Laboratory Tests 06/01/24 03:20 Test 06/01/24 03:20 Range/Units Serum Glucose 224 H 74-106 mg/dL Problem List Altered mental status Metabolic encephalopathy Hepatic encephalopathy Hypoxic encephalopathy Sepsis, septic shock Liver failure Liver cirrhosis Coagulopathy Jaundice Acute kidney failure Urinary tract infection Pneumonia Improving Assessment/Plan Monitoring Supportive treatment ICU care Stabilize vitals Respiratory support Oxygen IV antibiotics Thiamine supplementation GI prophylaxis/Protonix Pulmonology on case Nephrology on case GI on case More recommendation per clinical course This medical document was created using an electronic medical record system with [employer] dictation system. Although this document has been carefully reviewed, there may still be some phonetic and typographical errors. These areas are purely typographical due to imperfections of the software programs, and do not reflect any compromise in the patient's medical care Prognosis poor Dietary Evaluation Review Comments: 1. Per RN, pt is able to drink liquid but unable to manage jello. Will Downgrade his CCHO-60 diet to pureed texture. 2. offer Glucern BID if PO is still poor 3. elevated BUN, f/u and reassess after pt has a GI and nephrology consult. 4. consider clinimix as a form of protein supplementation as pt has very low albumin. Expected Outcomes/Goals: Gradual wt loss, better DM control. Plan discussed with: Other GETACHEW BLACKWOOD MD Jun 01, 2024 11:13
[2024-06-01 11:48] LABS: Base Excess 1.2 mmol/L (-2.0-3.0)
--- NOTE | 2024-06-01 14:35 | DVHPN2 ---
Progress Note - Dictate Date Seen: Jun 01, 2024 Medical Necessity Reason Pt with a Central, PICC or Fol: Yes The following are medically ne: PICC Line, Mcduffie Catheter Reason for mcduffie catheter: Strict I&O Subjective No new complaints, patient remains extubated He is on 2 L nasal cannula saturating well Liver enzymes persistently elevated with a bilirubin is slightly up to 28 2 bowel movements recorded, vital signs Vital Sign Date Time Temp Pulse Resp B/P (MAP) Pulse Ox O2 Delivery O2 Flow Rate FiO2 06/01/24 13:11 90 16 98 06/01/24 13:05 Nasal Cannula 2.0 06/01/24 13:05 28 06/01/24 11:15 96/51 (66) 06/01/24 08:00 97.0 97.0 Total Intake and Output 05/31/24 05/31/24 06/01/24 15:00 23:00 07:00 Intake Total 522.504 ml 927.501 ml 934.938 ml Output Total 2450 ml 1425 ml Balance 522.504 ml -1522.499 ml -490.062 ml medications Current Medications Medications Dose Ordered Sig/Kenisha Route Start Time Stop Time Status Last Admin Dose Admin Sodium Chloride 10 ml Q8HR IV 05/07/24 06:00 06/01/24 05:54 10 ML Ondansetron HCl 4 mg Q4HP PRN IV 05/06/24 22:15 Pantoprazole Sodium 40 mg BID IV 05/08/24 22:00 06/01/24 10:11 40 MG Thiamine HCl 100 mg DAILY IV 05/10/24 10:00 06/01/24 10:28 100 MG Flecainide Acetate 100 mg Q12HR PO 05/09/24 22:00 06/01/24 10:13 100 MG Folic Acid 1 mg DAILY PO 05/11/24 10:00 06/01/24 10:28 1 MG Diagnostic Test (Pha) 1 strip Q6HR 05/10/24 18:00 06/01/24 12:27 1 STRIP Insulin Human Regular FOLLOW SLIDING SCALE Q6HR SC 05/10/24 18:00 06/01/24 12:26 4 UNITS Dextrose 50 ml UD IV 05/10/24 17:15 Sodium Chloride 10 ml QSHIFT@ IV 05/13/24 22:00 06/01/24 10:22 10 ML Albuterol 2.5 mg Q4HR NEB 05/15/24 14:00 06/01/24 13:05 2.5 MG Ipratropium [place] 0.5 mg Q4HR NEB 05/15/24 14:00 06/01/24 13:05 0.5 MG Norepinephrine Bitartrate 32 mg/ Sodium Chloride 250 ml @ 0.938 mls/ hr Q24H IV 05/16/24 11:15 05/28/24 22:23 3.75 MLS/HR Nystatin 1 applic BID TOP 05/23/24 22:00 06/01/24 10:13 1 APPLIC Metoclopramide HCl 5 mg BID IV 05/23/24 22:00 06/01/24 10:13 5 MG Vancomycin HCl 0 ml @ 0 mls/hr UD IV 05/24/24 10:00 Octreotide Acetate 100 mcg TID SUBCUT 05/24/24 14:00 06/01/24 05:52 100 MCG Lactulose 30 ml Q6HR NG 05/26/24 00:00 06/01/24 12:25 30 ML Midodrine 10 mg TID@0600,1200,1800 PO 05/28/24 12:00 06/01/24 12:25 10 MG Furosemide 20 mg DAILY IV 05/28/24 10:00 06/01/24 10:11 20 MG Purified Water 200 ml Q6HR GT 05/30/24 12:00 06/01/24 12:25 200 ML Methylprednisolone Sodium Succinate 20 mg DAILY IV 05/30/24 10:36 06/01/24 10:13 20 MG Dextrose 1,000 ml @ 50 mls/hr Q20H IV 05/30/24 10:15 06/01/24 05:51 50 MLS/HR Enteral Nutritional Formula 1,000 ml 30ML/HR GT 05/31/24 10:15 objective General: Extubated but still fairly lethargic and unresponsive HEENT: NC/AT EOMI dry mucous membranes Heart: Tachycardic regular rhythm Abdomen: Soft nontender nondistended Extremity: No clubbing cyanosis or edema laboratory and microbiology Laboratory Tests 06/01/24 03:20 Test 06/01/24 03:20 Range/Units Serum Glucose 224 H 74-106 mg/dL Problems(with codes): (1) Jaundice (2) Aspiration pneumonia (3) Hepatitis C (4) Liver failure (5) Cirrhosis (6) Ascites (7) Pulmonary vascular congestion (8) Anemia, unspecified (9) Generalized weakness (10) Hepatic encephalopathy Prognosis PLAN Continue supportive care Prognosis is guarded Continue Actigall Patient is also on low-dose steroids Patient is DNR family did not want trach or PEG Dietary Evaluation Review Comments: 1. Per RN, pt is able to drink liquid but unable to manage jello. Will Downgrade his CCHO-60 diet to pureed texture. 2. offer Glucern BID if PO is still poor 3. elevated BUN, f/u and reassess after pt has a GI and nephrology consult. 4. consider clinimix as a form of protein supplementation as pt has very low albumin. Expected Outcomes/Goals: Gradual wt loss, better DM control. Plan discussed with: Patient, Other (None) PAULINA BAINS MD Jun 01, 2024 14:35
--- NOTE | 2024-06-01 16:27 | DVHPN2 ---
Progress Note Date Seen: Jun 01, 2024 Medical Necessity Reason Pt with a Central, PICC or Fol: Yes The following are medically ne: PICC Line, Mcduffie Catheter Reason for mcduffie catheter: Strict I&O Subjective Review of Systems: RESPIRATORY:Abnormal Objective vital signs Vital Sign Date Time Temp Pulse Resp B/P (MAP) Pulse Ox O2 Delivery O2 Flow Rate FiO2 06/01/24 15:15 93 7 102/60 (74) 96 06/01/24 14:00 Nasal Cannula* 2 28 06/01/24 12:00 97.1 97.1 Total Intake and Output 05/31/24 05/31/24 06/01/24 15:00 23:00 07:00 Intake Total 522.504 ml 927.501 ml 934.938 ml Output Total 2450 ml 1425 ml Balance 522.504 ml -1522.499 ml -490.062 ml medications Current Medications Medications Dose Ordered Sig/Kenisha Route Start Time Stop Time Status Last Admin Dose Admin Sodium Chloride 10 ml Q8HR IV 05/07/24 06:00 06/01/24 14:00 10 ML Ondansetron HCl 4 mg Q4HP PRN IV 05/06/24 22:15 Pantoprazole Sodium 40 mg BID IV 05/08/24 22:00 06/01/24 10:11 40 MG Thiamine HCl 100 mg DAILY IV 05/10/24 10:00 06/01/24 10:28 100 MG Flecainide Acetate 100 mg Q12HR PO 05/09/24 22:00 06/01/24 10:13 100 MG Folic Acid 1 mg DAILY PO 05/11/24 10:00 06/01/24 10:28 1 MG Diagnostic Test (Pha) 1 strip Q6HR 05/10/24 18:00 06/01/24 12:27 1 STRIP Insulin Human Regular FOLLOW SLIDING SCALE Q6HR SC 05/10/24 18:00 06/01/24 12:26 4 UNITS Dextrose 50 ml UD IV 05/10/24 17:15 Sodium Chloride 10 ml QSHIFT@10,22 IV 05/13/24 22:00 06/01/24 10:22 10 ML Albuterol 2.5 mg Q4HR NEB 05/15/24 14:00 06/01/24 13:05 2.5 MG Ipratropium [place] 0.5 mg Q4HR NEB 05/15/24 14:00 06/01/24 13:05 0.5 MG Norepinephrine Bitartrate 32 mg/ Sodium Chloride 250 ml @ 0.938 mls/ hr Q24H IV 05/16/24 11:15 05/28/24 22:23 3.75 MLS/HR Nystatin 1 applic BID TOP 05/23/24 22:00 06/01/24 10:13 1 APPLIC Metoclopramide HCl 5 mg BID IV 05/23/24 22:00 06/01/24 10:13 5 MG Vancomycin HCl 0 ml @ 0 mls/hr UD IV 05/24/24 10:00 Octreotide Acetate 100 mcg TID SUBCUT 05/24/24 14:00 06/01/24 16:04 100 MCG Lactulose 30 ml Q6HR NG 05/26/24 00:00 06/01/24 12:25 30 ML Midodrine 10 mg TID@0600,1200,1800 PO 05/28/24 12:00 06/01/24 12:25 10 MG Furosemide 20 mg DAILY IV 05/28/24 10:00 06/01/24 10:11 20 MG Purified Water 200 ml Q6HR GT 05/30/24 12:00 06/01/24 12:25 200 ML Methylprednisolone Sodium Succinate 20 mg DAILY IV 05/30/24 10:36 06/01/24 10:13 20 MG Dextrose 1,000 ml @ 50 mls/hr Q20H IV 05/30/24 10:15 06/01/24 05:51 50 MLS/HR Enteral Nutritional Formula 1,000 ml 30ML/HR GT 05/31/24 10:15 Examination: GENERAL:Abnormal, LUNGS:Abnormal, SKIN:Abnormal, NEURO:Abnormal laboratory and microbiology Laboratory Tests 06/01/24 03:20 Test 06/01/24 03:20 Range/Units Serum Glucose 224 H 74-106 mg/dL Microbiology Date/Time Source Procedure Growth Status 05/31/24 14:00 Blood Blood Culture - Preliminary NO GROWTH AFTER 24 HOURS OF INCUBATION. Resulted 05/23/24 16:00 Sputum Gram Stain - Final Complete 05/23/24 16:00 Respiratory Culture - Final Staphylococcus haemolyticus Presumptive [place] albicans Complete 05/23/24 12:30 Urine - [place] Urine Culture - Final Complete 05/13/24 14:00 Nose MRSA Screen - Final Complete Problem List/Assessment/Plan Problem List/Assessment/Plan Acute kidney injury hemodynamically mediated in the setting of hypotension and shock Acute respiratory failure in the setting of aspiration pneumonia --> compassinate extubation Hepatic encephalopathy Decompensated liver cirrhosis \Acute methamphetamine intoxication, Hepatitis-C Multidrug resistant ESBL urinary tract infection hypernatremia free water based on deficit lasix IV w/ IV albumin replace K as needed I/O grim prognosis conservative treatment, not candidate for [facility] dialysis will sign off Plan discussed with: Other Dietary Evaluation Review Comments: 1. Per RN, pt is able to drink liquid but unable to manage jello. Will Downgrade his CCHO-60 diet to pureed texture. 2. offer Glucern BID if PO is still poor 3. elevated BUN, f/u and reassess after pt has a GI and nephrology consult. 4. consider clinimix as a form of protein supplementation as pt has very low albumin. Expected Outcomes/Goals: Gradual wt loss, better DM control. PIETRO VILLEDA MD Jun 01, 2024 16:27
[2024-06-01] MEDS: VANCOMYCIN 500mg/100mL 100 ML IV ONE (17:52)
--- NOTE | 2024-06-01 19:35 | DVHPNRES ---
Progress Note Date Seen: Jun 01, 2024 Resident Creating Document: TIERRA GALEAS RESIDENT Medical Necessity Reason Pt with a Central, PICC or Fol: Yes The following are medically ne: PICC Line, Mcduffie Catheter Reason for mcduffie catheter: Strict I&O Subjective Review of Systems Patient is a 63-year-old male with a past medical history of liver cirrhosis likely secondary to hep C, liver shunt, CHF, diabetes mellitus, prostate cancer, history of lower GI bleed status post blood transfusion was brought to the ER with a chief complaint of drug overdose. Information gathered from reviewing the chart and talking with the patient's family, as per he was found gargling and unresponsive in a car, possible overdose of morphine following which EMS were called. EMS gave the patient Narcan and he woke up but was unable to recall what happened. Urine drug screen in the ER was positive for amphetamine and opiates. Was obtunded and was on oxygen support. While in the ER patient went into atrial fibrillation rapid ventricular response following which she was given diltiazem. Patient while in the hospital had altered mental status, sepsis likely due to UTI with the underlying liver cirrhosis had to be put on mechanical ventilation and put on vasopressor support. Patient was transferred to the ICU for further care. In ICU patient was treated with meropenem for Klebsiella pneumoniae ESBL multidrug resistant and also coverage for suspected aspiration pneumonia in the right lower lung, diuresis for with the Lasix, rifaximin and lactulose for hepatic encephalopathy, Patient's blood cultures were done twice and did not show any growth after 5 days, respiratory sputum cultures did not show any growth. Patient's mental status remained obtunded even after turning of the sedation, had vasopressor requirements therefore he could not be extubated. Past medical history: Liver cirrhosis likely secondary to hep C, liver shunt, CHF, type 2 diabetes mellitus, prostate cancer status post radiotherapy, history of lower GI bleed s/p blood transfusions Past surgical history: Hernia repair, tips, live knee surgery Social history: Patient lives with the , history of smoking less than 1 pack per day, reported alcohol and illicit drug usage Home medications: Lasix 20 mg b.i.d., gabapentin 300 mg q.8 hours, insulin glargine 15 units SC b.i.d., spironolactone 50 mg daily Review of systems Patient seen and examined at the bedside. - patient has been weaned off sedation since . on Norepinephrine, trying to wean off maintaining a MAP> 60. - patient is delirious and somnolent, responds to verbal commands - patient did not have any fever, WBC count trending down. - patient was had 2 bowel movements in the last 24 hrs Objective vital signs Vital Sign Date Time Temp Pulse Resp B/P (MAP) Pulse Ox O2 Delivery O2 Flow Rate FiO2 06/01/24 16:45 93 12 124/64 (84) 93 06/01/24 16:00 Nasal Cannula* 2 28 06/01/24 16:00 97.1 97.1 Total Intake and Output 05/31/24 05/31/24 06/01/24 14:59 22:59 06:59 Intake Total 575.317 ml 930.314 ml 934 ml Output Total 2450 ml 1425 ml Balance 575.317 ml -1519.686 ml -491 ml medications Current Medications Medications Dose Ordered Sig/Kenisha Route Start Time Stop Time Status Last Admin Dose Admin Sodium Chloride 10 ml Q8HR IV 05/07/24 06:00 06/01/24 14:00 10 ML Ondansetron HCl 4 mg Q4HP PRN IV 05/06/24 22:15 Pantoprazole Sodium 40 mg BID IV 05/08/24 22:00 06/01/24 10:11 40 MG Thiamine HCl 100 mg DAILY IV 05/10/24 10:00 06/01/24 10:28 100 MG Flecainide Acetate 100 mg Q12HR PO 05/09/24 22:00 06/01/24 10:13 100 MG Folic Acid 1 mg DAILY PO 05/11/24 10:00 06/01/24 10:28 1 MG Diagnostic Test (Pha) 1 strip Q6HR 05/10/24 18:00 06/01/24 17:53 1 STRIP Insulin Human Regular FOLLOW SLIDING SCALE Q6HR SC 05/10/24 18:00 06/01/24 18:05 4 UNITS Dextrose 50 ml UD IV 05/10/24 17:15 Sodium Chloride 10 ml QSHIFT@10,22 IV 05/13/24 22:00 06/01/24 10:22 10 ML Albuterol 2.5 mg Q4HR NEB 05/15/24 14:00 06/01/24 19:33 2.5 MG Ipratropium [place] 0.5 mg Q4HR NEB 05/15/24 14:00 06/01/24 19:33 0.5 MG Norepinephrine Bitartrate 32 mg/ Sodium Chloride 250 ml @ 0.938 mls/ hr Q24H IV 05/16/24 11:15 05/28/24 22:23 3.75 MLS/HR Nystatin 1 applic BID TOP 05/23/24 22:00 06/01/24 10:13 1 APPLIC Metoclopramide HCl 5 mg BID IV 05/23/24 22:00 06/01/24 10:13 5 MG Vancomycin HCl 0 ml @ 0 mls/hr UD IV 05/24/24 10:00 Octreotide Acetate 100 mcg TID SUBCUT 05/24/24 14:00 06/01/24 16:04 100 MCG Lactulose 30 ml Q6HR NG 05/26/24 00:00 06/01/24 17:52 30 ML Midodrine 10 mg TID@0600,1200,1800 PO 05/28/24 12:00 06/01/24 17:53 10 MG Furosemide 20 mg DAILY IV 05/28/24 10:00 06/01/24 10:11 20 MG Purified Water 200 ml Q6HR GT 05/30/24 12:00 06/01/24 18:13 200 ML Methylprednisolone Sodium Succinate 20 mg DAILY IV 05/30/24 10:36 06/01/24 10:13 20 MG Dextrose 1,000 ml @ 50 mls/hr Q20H IV 05/30/24 10:15 06/01/24 05:51 50 MLS/HR Enteral Nutritional Formula 1,000 ml 30ML/HR GT 05/31/24 10:15 Examination Gen - conjunctival pallor present , scleral icterus present, no cyanosis, no clubbing, no LAD, bilateral 2+ pitting pedal edema Skin - Patients skin is warm and dry, multiple spider angiomata skin on the chest, erythematous rash seen in the groin on both the sides, b/l lower extremity 2+ pitting edema HEENT - normocephalic, atraumatic, moist mucous membranes. Neck - no LAD, no JV distention Pulmonary - decreased breath sounds in the right lower lung, left basilar crackles, no wheezing, no stridor. cardiovascular - variable S1,S2 heard, no added sounds, no murmurs heard. capillary refill normal <2 secs. GI - soft abdomen. no hepatospleenomegaly. Bowel Sounds normoactive Neurological - patient was delirious, responds to verbal commands but not able to maintain eye contact for more than 10 seconds, plantar reflex downgoing, , pupils equal and reactive laboratory and microbiology Laboratory Tests 06/01/24 03:20 Test 06/01/24 03:20 Range/Units Serum Glucose 224 H 74-106 mg/dL Microbiology Date/Time Source Procedure Growth Status 05/31/24 14:00 Blood Blood Culture - Preliminary NO GROWTH AFTER 24 HOURS OF INCUBATION. Resulted 05/23/24 16:00 Sputum Gram Stain - Final Complete 05/23/24 16:00 Respiratory Culture - Final Staphylococcus haemolyticus Presumptive [place] albicans Complete 05/23/24 12:30 Urine - [place] Urine Culture - Final Complete 05/13/24 14:00 Nose MRSA Screen - Final Complete Problem List/Assessment/Plan Problem List/Assessment/Plan Neurological # Acute metabolic encephalopathy likely hepatic encephalopathy/toxic drug- induced/anoxic - head CT 05/07/24 showed no acute intracranial hemorrhage, midline shift or mass effect - urine drug screen at admission positive for opiates and amphetamines - ammonia trending down, on lactulose Respiratory # Acute hypoxemic/hypercarbic respiratory failure # bilateral lower lobe pneumonia likely due to Gram+/-bacteria # bilateral pleural effusion # pulmonary edema with right-sided pleural effusion - on oxygen via nasal cannula at 4 L/min - ABG reviewed today - respiratory acidosis - chest x-ray shows bilateral pulmonary edema with blunting of the right CP angle - on vancomycin - albuterol and ipratropium med nebs q.4 hours Cardiovascular # Septic shock likely d/t UTI vs pneumonia # new onset atrial fibrillation with RVR # NSTEMI type 2 likely due to demand supply mismatch - Echo shows LVEF 60% with concentric LVH, right atrial enlargement, right ventricular enlargement - on vasopressor support with norepinephrine, maintaining MAP > 65mmhg - flecainide 100 mg b.i.d. for AFib - [id number] Vasc- 1, has-bled 2 , currently anticoagulation is held, with the patient SOB positive and history of GI bleeding Gastrointestinal # decompensated liver cirrhosis # history of hepatitis-C infection # history of heavy alcohol use # ?SBP # ascites # hepatic encephalopathy - noted increase in bilirubin - low albumin, elevated PT INR, thrombocytopenia - lactulose 30 mL q.6h - currently on tube feeding at 30 mL/hour - Protonix 40 mg IV b.i.d. - Ursodiol 300 mg b.i.d., stopped - methylprednisolone 20 mg q.d. - lasix Nephrology # acute kidney injury likely hemodynamically mediated due to shock,+ contrast likely ATN # hypernatremia - BUN and creatinine, trending down - FENa calculated today at 3% - free water deficit 2 L - free water 200 mL via NG tube q.6 hours - pharmacy conveyed that the vancomycin trough to be kept below 15 - D5W held Infectious disease # septic shock likely due to UTI versus pneumonia versus ?SBP # candidal infection in the groin - initial urine culture showed growth of multidrug resistant Klebsiella ESBL, on meropenem - initial blood cultures, respiratory sputum cultures negative - repeat blood cultures showed growth of staph. epidermidis, patient on vanco - nystatin powder q.12h for erickson - 05/31 - blood cultures repeated again, show no growth after 24 hours Endocrine # Insulin dependent Diabetes mellitus with hyperglycemia - On ISS - goal blood glucose 140-180 mg/dL Polysubstance Use Acute opiate/methamphetamine intoxication DVT prophylaxis: Sequential compression device PUD prophylaxis: Protonix PICC line in the left forearm- placed on 05/13/2024 Mcduffie's catheter- placed on 05/07/2024 Patient was extubated on 05/29. Continues to be on norepinephrine. Patient's guarded prognosis explained to the in detail and the need for BiPAP going forward if the patient's CO2 keeps rising and since he is altered he may end up aspirating. understood and wants the patient to be put on BiPAP if needed but no intubation or chest compressions. Goals of care discussed with the patient's Lorna about the patient's prognosis .. prognosis guarded Code status- modified DNR-no intubation, no chest compression Critical care time excluding procdures spent: 61 mins Plan discussed with Dr. Amaro Plan discussed with: Spouse, Other (RN ( [place] )) My Orders My Orders Orders - TIERRA GALEAS RESIDENT Procedure Category Date Status Time Chest Xray 1 View XY 06/01/24 Resulted 04:00 Abg W/ Co-Ox RT 06/01/24 Logged 04:00 Complete Blood Count LAB 06/02/24 Verified 04:00 Creatinine LAB 06/02/24 Verified 04:00 Vancomycin,Random LAB 06/02/24 Verified 04:00 Dietary Evaluation Review Comments: 1. Per RN, pt is able to drink liquid but unable to manage jello. Will Downgrade his CCHO-60 diet to pureed texture. 2. offer Glucern BID if PO is still poor 3. elevated BUN, f/u and reassess after pt has a GI and nephrology consult. 4. consider clinimix as a form of protein supplementation as pt has very low albumin. Expected Outcomes/Goals: Gradual wt loss, better DM control. Date of Service: Jun 01, 2024 Billing Provider: JUVENAL AMARO MD Common Visit Codes: 35108-[id number] CARE 30-74 MIN TIERRA GALEAS RESIDENT Jun 01, 2024 19:35 JUVENAL AMARO MD Jun 04, 2024 21:14
[2024-06-02] VITALS (106 sets, daily range): BP systolic 82–137; BP diastolic 29–72; PULSE 78–95; RESP 9–20; TEMP 96.7–97.7; O2SAT 90–100
[2024-06-02] MEDS: NOREPINEPHRINE BITARTRATE 32 MG in SODIUM CHL 0.9% 218 ML IV SCH (00:06)
[2024-06-02 05:41] LABS: Hemoglobin 8.8 g/dL (13.5-17.5); Mean Corpuscular Hemoglobin 30.4 pg (28.0-32.0); Red Blood Cells 2.91 10^6/uL (4.5-5.90)
[2024-06-02 05:47] LABS: Hematocrit 28.6 % (41.0-53.0); Mean Corpuscular Hgb Conc. 30.9 g/dL (32.0-36.0); Mean Corpuscular Volume 98.4 fL (80.0-100.0); Platelet Count (auto) 59 10^3/uL (140-450); Red Cell Distribution Width 28.2 % (11.8-14.3); White Blood Cell 12.3 10^3/uL (4.4-10.8)
[2024-06-02 06:00] LABS: Calcium 9.1 mg/dL (8.7-10.4); Potassium 3.9 mmol/L (3.5-5.1)
[2024-06-02 06:15] LABS: Alanine Aminotransferase 103 U/L (7-40); Albumin 2.5 g/dL (3.2-4.8); Alkaline Phosphatase 243 U/L (46-116); Anion Gap 9 (5-15); Aspartate Aminotransferase 84 U/L (13-40); BUN/Creatinine Ratio 45.7 (10.0-20.0); Bilirubin, Total 28.4 mg/dL (0.2-1.0); Carbon Dioxide 26 mmol/L (20-31); Chloride 115 mmol/L (98-107); Glucose 200 mg/dL (74-106); Sodium 150 mmol/L (136-145); Total Protein 4.9 g/dL (5.7-8.2)
[2024-06-02 06:17] LABS: Blood Urea Nitrogen 84 mg/dL (9-23)
[2024-06-02 06:59] LABS: Band Neutrophils % (manual) 0; Basophils % (manual) 0 (0.0-2.0); Blast Cells 0; Eosinophils % (manual) 0 (0-7); Metamyelocytes % 0; Myelocytes % 0; Promyelocytes % 0; Reactive Lymphocytes 0
--- NOTE | 2024-06-02 09:25 | DVHPN2 ---
Progress Note - Dictate Date Seen: Jun 02, 2024 Medical Necessity Reason Pt with a Central, PICC or Fol: Yes The following are medically ne: PICC Line, Mcduffie Catheter Reason for mcduffie catheter: Strict I&O Subjective Mr. Linder is a 63 years old gentleman with a history of diabetes, liver cirrhosis, hepatitis-C infection, cancer, the patient was brought to the [facility] on 05/06/2024 with a chief complaint of overdose. I have seen and examined the patient was, discussed with his nurse. He respond to his name, but not to verbal commands, I have not see movement in the extremities He was looks weaker today Blood culture, 05/23/2024: Gram-positive cocci in clusters Urine culture, 05/07/2024: Klebsiella pneumoniae Stool Occult blood, 06/09/2024: Positive UDS, 05/07/2024: Opiates, amphetamine Plasma alcohol, 05/06/2024: <3 Urinalysis, 05/07/2024: WBC: 193, urine leukocyte esterase: 2+ ABG, 05/07/2024: Combined respiratory and metabolic acidosis, 05/13/2024: Metabolic acidosis, 05/15/2024: Respiratory acidosis, 05/19/2024: Respiratory acidosis, 05/25/2024: Respiratory acidosis WBC/HB/PLT/MCV, 05/25/2024: 19.5/8.4/100/93.8 PT/INR/PTT, 05/16/2024: 19.4/1.96, 05/20/2024: 17.2/1.71 BUN/CR, 05/25/2024: 73/1.95 GFR, 10/20/2024: 38 TBI/AST/ALT/AP, 05/25/2024: 25.2/133/76/292 NH3, 05/07/24: 84, 05/12/2024: 30, 05/13/24: 82, 05/16/2024: 43, 05/24/2024: 37 EEG, 05/25/24: Remarkably abnormal EEG Chest x-ray, 05/07/2024: 1. Interval placement of enteric tube with terminus just distal to the expected level of the GEJ. 2. Interval increase in left lung base pulmonary markings suggestive of possible developing infiltrate. 3. Stable diffuse prominence of the pulmonary vasculature. CT head, 05/07/2024: No acute intracranial hemorrhage, midline shift or mass effect. If symptoms persist, further evaluation with MRI is recommended CVA, neck, 05/13/2024: No hemodynamically significant stenosis, aneurysm or dissection involving the major intracranial and neck vessels. The suggested fistulous connection noted on ultrasound between the distal left common carotid artery and left internal jugular vein is not definitely visualized. No contrast extravasation is noted. CT head, 05/25/2024: No acute intracranial process vital signs Vital Sign Date Time Temp Pulse Resp B/P (MAP) Pulse Ox O2 Delivery O2 Flow Rate FiO2 06/02/24 08:00 97.4 95 16 93 97.4 06/02/24 06:26 Nasal Cannula* 2 28 Total Intake and Output 06/01/24 06/01/24 06/02/24 15:00 23:00 07:00 Intake Total 407.504 ml 500.938 ml 1.876 ml Output Total 1650 ml 1000 ml Balance 407.504 ml -1149.062 ml -998.124 ml medications Current Medications Medications Dose Ordered Sig/Kenisha Route Start Time Stop Time Status Last Admin Dose Admin Sodium Chloride 10 ml Q8HR IV 05/07/24 06:00 06/02/24 05:52 10 ML Ondansetron HCl 4 mg Q4HP PRN IV 05/06/24 22:15 Pantoprazole Sodium 40 mg BID IV 05/08/24 22:00 06/01/24 21:41 40 MG Thiamine HCl 100 mg DAILY IV 05/10/24 10:00 06/01/24 10:28 100 MG Flecainide Acetate 100 mg Q12HR PO 05/09/24 22:00 06/01/24 21:41 100 MG Folic Acid 1 mg DAILY PO 05/11/24 10:00 06/01/24 10:28 1 MG Diagnostic Test (Pha) 1 strip Q6HR 05/10/24 18:00 06/02/24 05:53 1 STRIP Insulin Human Regular FOLLOW SLIDING SCALE Q6HR SC 05/10/24 18:00 06/02/24 06:05 4 UNITS Dextrose 50 ml UD IV 05/10/24 17:15 Sodium Chloride 10 ml QSHIFT@ IV 05/13/24 22:00 06/01/24 22:08 10 ML Albuterol 2.5 mg Q4HR NEB 05/15/24 14:00 06/02/24 06:27 2.5 MG Ipratropium [place] 0.5 mg Q4HR NEB 05/15/24 14:00 06/02/24 06:27 0.5 MG Nystatin 1 applic BID TOP 05/23/24 22:00 06/01/24 22:08 1 APPLIC Metoclopramide HCl 5 mg BID IV 05/23/24 22:00 06/01/24 21:43 5 MG Vancomycin HCl 0 ml @ 0 mls/hr UD IV 05/24/24 10:00 Octreotide Acetate 100 mcg TID SUBCUT 05/24/24 14:00 06/02/24 05:52 100 MCG Lactulose 30 ml Q6HR NG 05/26/24 00:00 06/02/24 05:51 30 ML Midodrine 10 mg TID@0600,1200,1800 PO 05/28/24 12:00 06/02/24 05:51 10 MG Furosemide 20 mg DAILY IV 05/28/24 10:00 06/01/24 10:11 20 MG Purified Water 200 ml Q6HR GT 05/30/24 12:00 06/02/24 05:52 200 ML Methylprednisolone Sodium Succinate 20 mg DAILY IV 05/30/24 10:36 06/01/24 10:13 20 MG Enteral Nutritional Formula 1,000 ml 30ML/HR GT 05/31/24 10:15 Norepinephrine Bitartrate 32 mg/ Sodium Chloride 250 ml @ 0.469 mls/ hr Q24H IV 06/01/24 20:00 06/02/24 00:06 0.469 MLS/HR objective The patient is well-nourished and well-developed with no distress MENTAL STATUS: Subjective CRANIAL NERVES: Pupils are equally round and reactive.There are conjugated eye movement. No signs of facial weakness. Sensorimotor examined in bilateral transplant distribution is unremarkable. SENSATION: Responses to touch MOTOR: Normal tone in the upper and lower extremity. Normal muscle bulk. No fasciculations. I do not see movement in the extremities REFLEXES: Deep tendon reflexes are symmetrical. Upgoing toes bilaterally CEREBELLAR/COORDINATION: Deferred GAIT/STATION: deferred. laboratory and microbiology Laboratory Tests 06/02/24 05:06 Test 06/02/24 05:06 Range/Units Serum Glucose 200 H 74-106 mg/dL Problem List Altered mental status Metabolic encephalopathy Hepatic encephalopathy Hypoxic encephalopathy Sepsis, septic shock Liver failure Liver cirrhosis Coagulopathy Jaundice Acute kidney failure Urinary tract infection Pneumonia Assessment/Plan Monitoring Supportive treatment ICU care Stabilize vitals Respiratory support Oxygen IV antibiotics Thiamine supplementation GI prophylaxis/Protonix Pulmonology on case Nephrology on case GI on case More recommendation per clinical course This medical document was created using an electronic medical record system with [employer] dictation system. Although this document has been carefully reviewed, there may still be some phonetic and typographical errors. These areas are purely typographical due to imperfections of the software programs, and do not reflect any compromise in the patient's medical care Prognosis poor Dietary Evaluation Review Comments: 1. Per RN, pt is able to drink liquid but unable to manage jello. Will Downgrade his CCHO-60 diet to pureed texture. 2. offer Glucern BID if PO is still poor 3. elevated BUN, f/u and reassess after pt has a GI and nephrology consult. 4. consider clinimix as a form of protein supplementation as pt has very low albumin. Expected Outcomes/Goals: Gradual wt loss, better DM control. Plan discussed with: Other GETACHEW BLACKWOOD MD Jun 02, 2024 09:25
[2024-06-02 09:47] LABS: Lymphocytes % (manual) 4 (10.0-50.0); Monocytes % (manual) 3 (0-12); Platelet Estimate Decreased; Smudge Cells 9 /100 WBC
[2024-06-02 09:48] LABS: Anisocytosis Moderate
[2024-06-02] MEDS: ALBUMIN 25% 100 ML IV ONE (10:22)
[2024-06-02] MEDS: FREE WATER GT SCH (12:00)
[2024-06-02] MEDS: LACTULOSE 20Gm/30ML SOLN NG SCH (14:00)
--- NOTE | 2024-06-02 18:54 | DVHPNRES ---
Progress Note Date Seen: Jun 02, 2024 Resident Creating Document: TIERRA GALEAS RESIDENT Medical Necessity Reason Pt with a Central, PICC or Fol: Yes The following are medically ne: PICC Line, Mcduffie Catheter Reason for mcduffie catheter: Strict I&O Subjective Review of Systems Patient is a 63-year-old male with a past medical history of liver cirrhosis likely secondary to hep C, liver shunt, CHF, diabetes mellitus, prostate cancer, history of lower GI bleed status post blood transfusion was brought to the ER with a chief complaint of drug overdose. Information gathered from reviewing the chart and talking with the patient's family, as per he was found gargling and unresponsive in a car, possible overdose of morphine following which EMS were called. EMS gave the patient Narcan and he woke up but was unable to recall what happened. Urine drug screen in the ER was positive for amphetamine and opiates. Was obtunded and was on oxygen support. While in the ER patient went into atrial fibrillation rapid ventricular response following which she was given diltiazem. Patient while in the hospital had altered mental status, sepsis likely due to UTI with the underlying liver cirrhosis had to be put on mechanical ventilation and put on vasopressor support. Patient was transferred to the ICU for further care. In ICU patient was treated with meropenem for Klebsiella pneumoniae ESBL multidrug resistant and also coverage for suspected aspiration pneumonia in the right lower lung, diuresis for with the Lasix, rifaximin and lactulose for hepatic encephalopathy, Patient's blood cultures were done twice and did not show any growth after 5 days, respiratory sputum cultures did not show any growth. Patient's mental status remained obtunded even after turning of the sedation, had vasopressor requirements therefore he could not be extubated. Past medical history: Liver cirrhosis likely secondary to hep C, liver shunt, CHF, type 2 diabetes mellitus, prostate cancer status post radiotherapy, history of lower GI bleed s/p blood transfusions Past surgical history: Hernia repair, tips, live knee surgery Social history: Patient lives with the , history of smoking less than 1 pack per day, reported alcohol and illicit drug usage Home medications: Lasix 20 mg b.i.d., gabapentin 300 mg q.8 hours, insulin glargine 15 units SC b.i.d., spironolactone 50 mg daily Review of systems Patient seen and examined at the bedside. - patient has been weaned off sedation since . Weaned off norepinephrine today maintaining a MAP> 60. on midodrine and octreotide - patient is delirious and somnolent, minimal responsiveness to verbal commands - patient did not have any fever, WBC count trending down. - patient was had 3 bowel movements in the last 24 hrs Objective vital signs Vital Sign Date Time Temp Pulse Resp B/P (MAP) Pulse Ox O2 Delivery O2 Flow Rate FiO2 06/02/24 18:37 96 Nasal Cannula* 2 28 06/02/24 18:37 87 17 06/02/24 16:00 97.2 117/60 (79) 97.2 Total Intake and Output 06/01/24 06/01/24 06/02/24 15:00 23:00 07:00 Intake Total 407.504 ml 500.938 ml 2.814 ml Output Total 1650 ml 1000 ml Balance 407.504 ml -1149.062 ml -997.186 ml medications Current Medications Medications Dose Ordered Sig/Kenisha Route Start Time Stop Time Status Last Admin Dose Admin Sodium Chloride 10 ml Q8HR IV 05/07/24 06:00 06/02/24 13:32 10 ML Ondansetron HCl 4 mg Q4HP PRN IV 05/06/24 22:15 Pantoprazole Sodium 40 mg BID IV 05/08/24 22:00 06/02/24 10:10 40 MG Thiamine HCl 100 mg DAILY IV 05/10/24 10:00 06/02/24 10:12 100 MG Flecainide Acetate 100 mg Q12HR PO 05/09/24 22:00 06/02/24 10:17 100 MG Folic Acid 1 mg DAILY PO 05/11/24 10:00 06/02/24 10:18 1 MG Diagnostic Test (Pha) 1 strip Q6HR 05/10/24 18:00 06/02/24 17:18 1 STRIP Insulin Human Regular FOLLOW SLIDING SCALE Q6HR SC 05/10/24 18:00 06/02/24 17:46 4 UNITS Dextrose 50 ml UD IV 05/10/24 17:15 Sodium Chloride 10 ml QSHIFT@10,22 IV 05/13/24 22:00 06/02/24 10:22 10 ML Albuterol 2.5 mg Q4HR NEB 05/15/24 14:00 06/02/24 18:37 2.5 MG Ipratropium [place] 0.5 mg Q4HR NEB 05/15/24 14:00 06/02/24 18:37 0.5 MG Nystatin 1 applic BID TOP 05/23/24 22:00 06/02/24 10:18 1 APPLIC Metoclopramide HCl 5 mg BID IV 05/23/24 22:00 06/02/24 10:16 5 MG Octreotide Acetate 100 mcg TID SUBCUT 05/24/24 14:00 06/02/24 15:41 100 MCG Midodrine 10 mg TID@0600,1200,1800 PO 05/28/24 12:00 06/02/24 17:18 10 MG Furosemide 20 mg DAILY IV 05/28/24 10:00 06/02/24 10:15 20 MG Methylprednisolone Sodium Succinate 20 mg DAILY IV 05/30/24 10:36 06/02/24 10:12 20 MG Enteral Nutritional Formula 1,000 ml 30ML/HR GT 05/31/24 10:15 Norepinephrine Bitartrate 32 mg/ Sodium Chloride 250 ml @ 0.469 mls/ hr Q24H IV 06/01/24 20:00 06/02/24 00:06 0.469 MLS/HR Purified Water 300 ml Q6HR GT 06/02/24 12:00 06/02/24 17:18 300 ML Lactulose 30 ml Q8HR NG 06/02/24 14:00 Examination Gen - conjunctival pallor present , scleral icterus present, no cyanosis, no clubbing, no LAD, bilateral 2+ pitting pedal edema Skin - Patients skin is warm and dry, multiple spider angiomata skin on the chest, erythematous rash seen in the groin on both the sides, b/l lower extremity 2+ pitting edema HEENT - normocephalic, atraumatic, moist mucous membranes. Neck - no LAD, no JV distention Pulmonary - decreased breath sounds in the right lower lung, left basilar crackles, no wheezing, no stridor. cardiovascular - variable S1,S2 heard, no added sounds, no murmurs heard. capillary refill normal <2 secs. GI - soft abdomen. no hepatospleenomegaly. Bowel Sounds normoactive Neurological - patient was delirious, responds to verbal commands but not able to maintain eye contact for less than 10 seconds, plantar reflex downgoing, , pupils equal and reactive laboratory and microbiology Laboratory Tests 06/02/24 05:06 Test 06/02/24 05:06 Range/Units Serum Glucose 200 H 74-106 mg/dL Microbiology Date/Time Source Procedure Growth Status 05/31/24 14:00 Blood Blood Culture - Preliminary NO GROWTH AFTER 48 HOURS OF INCUBATION. Resulted 05/23/24 16:00 Sputum Gram Stain - Final Complete 05/23/24 16:00 Respiratory Culture - Final Staphylococcus haemolyticus Presumptive Erickson albicans Complete 05/23/24 12:30 Urine - Mcduffie [place] Urine Culture - Final Complete 05/13/24 14:00 Nose MRSA Screen - Final Complete Problem List/Assessment/Plan Problem List/Assessment/Plan Neurological # Acute metabolic encephalopathy likely hepatic encephalopathy/toxic drug- induced/anoxic - head CT 05/07/24 showed no acute intracranial hemorrhage, midline shift or mass effect - urine drug screen at admission positive for opiates and amphetamines - ammonia trending down, on lactulose Respiratory # Acute hypoxemic/hypercarbic respiratory failure # bilateral lower lobe pneumonia likely due to Gram+/-bacteria # bilateral pleural effusion # pulmonary edema with right-sided pleural effusion - on oxygen via nasal cannula at 4 L/min - ABG reviewed today - respiratory acidosis - chest x-ray shows bilateral pulmonary edema with blunting of the right CP angle - albuterol and ipratropium med nebs q.4 hours Cardiovascular # Septic shock likely d/t UTI vs pneumonia, resolved # new onset atrial fibrillation with RVR, resolved currently in sinus rhythm # NSTEMI type 2 likely due to demand supply mismatch - Echo shows LVEF 60% with concentric LVH, right atrial enlargement, right ventricular enlargement - on vasopressor support with norepinephrine, maintaining MAP > 65mmhg - flecainide 100 mg b.i.d. for AFib - [id number] Vasc- 1, has-bled 2 , currently anticoagulation is held, with the patient SOB positive and history of GI bleeding Gastrointestinal # decompensated liver cirrhosis # history of hepatitis-C infection # history of heavy alcohol use # ascites # hepatic encephalopathy - noted increase in bilirubin - low albumin, elevated PT INR, thrombocytopenia - lactulose 30 mL q.8h - currently on tube feeding at 30 mL/hour - Protonix 40 mg IV b.i.d. - methylprednisolone 20 mg q.d. - lasix Nephrology # acute kidney injury likely hemodynamically mediated due to shock,+ contrast likely ATN # hypernatremia - BUN and creatinine, trending down - FENa calculated today at 3% - free water deficit 2 L - free water 300 mL via NG tube q.6 hours Infectious disease # septic shock likely due to UTI versus pneumonia versus ?SBP # candidal infection in the groin - initial urine culture showed growth of multidrug resistant Klebsiella ESBL, on meropenem - initial blood cultures, respiratory sputum cultures negative - repeat blood cultures showed growth of staph. epidermidis, patient on vanco - nystatin powder q.12h for erickson - 05/31 - blood cultures repeated again, show no growth after 24 hours Endocrine # Insulin dependent Diabetes mellitus with hyperglycemia - On ISS - goal blood glucose 140-180 mg/dL Polysubstance Use Acute opiate/methamphetamine intoxication DVT prophylaxis: Sequential compression device PUD prophylaxis: Protonix PICC line in the left forearm- placed on 05/13/2024 Mcduffie's catheter- placed on 05/07/2024 Patient was extubated on 05/29. Weaned off norepinephrine. Patient's guarded prognosis explained to the in detail and the need for BiPAP going forward if the patient's CO2 keeps rising and since he is altered he may end up aspirating. understood and wants the patient to be put on BiPAP if needed and chest compressions but no intubation Goals of care discussed with the patient's Lorna about the patient's prognosis .. prognosis guarded Code status- modified DNR- no chest compression Critical care time excluding procdures spent: 63 mins Plan discussed with Dr. Amaro Plan discussed with: Spouse (Lorna), Other (RN ( [place] )) My Orders My Orders Orders - TIERRA GALEAS RESIDENT Procedure Category Date Status Time Sodium Chl 0.9% PHA 06/01/24 In Process (Ns... 20:00 Free Water PHA 06/02/24 In Process 12:00 Lactulose Oral PHA 06/02/24 In Process 14:00 * Fitter Mechanic CONS 06/02/24 Transmitted Consult Code Status CODE 06/02/24 Transmitted 16:28 Dietary Evaluation Review Comments: 1. Per RN, pt is able to drink liquid but unable to manage jello. Will Downgrade his CCHO-60 diet to pureed texture. 2. offer Glucern BID if PO is still poor 3. elevated BUN, f/u and reassess after pt has a GI and nephrology consult. 4. consider clinimix as a form of protein supplementation as pt has very low albumin. Expected Outcomes/Goals: Gradual wt loss, better DM control. Date of Service: Jun 02, 2024 Billing Provider: JUVENAL AMARO MD Common Visit Codes: 99037-[id number] CARE 30-74 MIN TIERRA GALEAS RESIDENT Jun 02, 2024 18:54 JUVENAL AMAOR MD Jun 04, 2024 21:25
[2024-06-03] VITALS (82 sets, daily range): BP systolic 92–127; BP diastolic 43–81; PULSE 75–89; RESP 11–24; TEMP 97–98.1; O2SAT 90–100
[2024-06-03 05:13] LABS: Basophils # (auto) 0.1 10 ^3/uL (0-0.2); Basophils % (auto) 0.6 % (0.0-2.0); Eosinophils # (auto) 0 10 ^3/uL (0-0.8); Hematocrit 29.3 % (41.0-53.0); Hemoglobin 9.1 g/dL (13.5-17.5); Lymphocytes # (auto) 0.2 10 ^3/uL (0.4-5.4); Lymphocytes % (auto) 2.3 % (10.0-50.0); Mean Corpuscular Hemoglobin 31.1 pg (28.0-32.0); Mean Corpuscular Volume 100.3 fL (80.0-100.0); Monocytes # (auto) 0.5 10 ^3/uL (0-1.3); Monocytes % (auto) 4.7 % (0.0-12.0); Neutrophils # (auto) 9.5 10 ^3/uL (1.6-8.6); Neutrophils % (auto) 92.4 % (37.0-80.0); Nucleated Red Blood Cells % 0.1 %; Platelet Count (auto) 46 10^3/uL (140-450); Red Blood Cells 2.92 10^6/uL (4.5-5.90); Red Cell Distribution Width 28.8 % (11.8-14.3); White Blood Cell 10.3 10^3/uL (4.4-10.8)
[2024-06-03 05:35] LABS: Calcium 9.2 mg/dL (8.7-10.4); Potassium 4.2 mmol/L (3.5-5.1)
[2024-06-03 05:40] LABS: Anion Gap 7 (5-15); BUN/Creatinine Ratio 45.9 (10.0-20.0)
[2024-06-03 05:41] LABS: Alanine Aminotransferase 109 U/L (7-40); Albumin 2.7 g/dL (3.2-4.8); Alkaline Phosphatase 242 U/L (46-116); Aspartate Aminotransferase 84 U/L (13-40); Bilirubin, Total 32.6 mg/dL (0.2-1.0); Carbon Dioxide 25 mmol/L (20-31); Chloride 117 mmol/L (98-107); Glucose 202 mg/dL (74-106); Sodium 149 mmol/L (136-145); Total Protein 4.9 g/dL (5.7-8.2)
[2024-06-03 05:42] LABS: Blood Urea Nitrogen 83 mg/dL (9-23)
[2024-06-03 06:17] LABS: Anisocytosis Slight; Macrocytosis Slight
[2024-06-03 06:18] LABS: Ovalocytes FEW; Platelet Estimate Decreased
--- NOTE | 2024-06-03 06:21 | DVH ---
EXAM: XR Chest, 1 View CLINICAL INDICATION: decreased breath sounds, pleural eff TECHNIQUE: Frontal view of the chest. COMPARISON: XY CHEST XRAY 1 VIEW on DOS: 06/01/24, XY CHEST XRAY 1 VIEW on DOS: 05/31/24, XY CHEST PO RTABLE on DOS: 05/30/24, XY CHEST PORTABLE on DOS: 05/29/24, XY CHEST PORTABLE on DOS: 05/29/24 FINDINGS: LUNGS AND PLEURAL SPACES: Right pleural effusion. Pulmonary venous congestion. No consolidation. No pneumothorax. HEART: Unremarkable. No cardiomegaly. MEDIASTINUM: Unremarkable. Normal mediastinal contour. BONES/JOINTS: Unremarkable. No acute fracture. TUBES, LINES AND DEVICES: Right peripherally inserted central catheter (PICC) tip in the superior v tere cava. OTHER FINDINGS: . . . IMPRESSION: 1. Right pleural effusion. 2. Pulmonary venous congestion.
[2024-06-03] MEDS: URSODIOL 300 MG CAP PO SCH (10:57)
[2024-06-03] MEDS: ALBUMIN 25% 100 ML IV ONE (17:20)
--- NOTE | 2024-06-03 17:59 | DVHPN2 ---
Progress Note - Dictate Date Seen: Jun 03, 2024 Medical Necessity Reason Pt with a Central, PICC or Fol: Yes The following are medically ne: PICC Line, Mcduffie Catheter Reason for mcduffie catheter: Strict I&O Subjective Mr. Linder is a 63 years old gentleman with a history of diabetes, liver cirrhosis, hepatitis-C infection, cancer, the patient was brought to the [facility] on 05/06/2024 with a chief complaint of overdose. I have seen and examined the patient was, discussed with his nurse. He responded to my voice, he opened his mouth I am verbal commands. He did not move the arms and legs He looks very tired Blood culture, 05/23/2024: Gram-positive cocci in clusters Urine culture, 05/07/2024: Klebsiella pneumoniae Stool Occult blood, 06/09/2024: Positive UDS, 05/07/2024: Opiates, amphetamine Plasma alcohol, 05/06/2024: <3 Urinalysis, 05/07/2024: WBC: 193, urine leukocyte esterase: 2+ ABG, 05/07/2024: Combined respiratory and metabolic acidosis, 05/13/2024: Metabolic acidosis, 05/15/2024: Respiratory acidosis, 05/19/2024: Respiratory acidosis, 05/25/2024: Respiratory acidosis WBC/HB/PLT/MCV, 05/25/2024: 19.5/8.4/100/93.8 PT/INR/PTT, 05/16/2024: 19.4/1.96, 05/20/2024: 17.2/1.71 BUN/CR, 05/25/2024: 73/1.95, 06/03/24: 83/1.81 GFR, 10/20/2024: 38 TBI/AST/ALT/AP, 05/25/2024: 25.2/133/76/292, 06/03/2024: 32.6/84/109/242 NH3, 05/07/24: 84, 05/12/2024: 30, 05/13/24: 82, 05/16/2024: 43, 05/24/2024: 37 EEG, 05/25/24: Remarkably abnormal EEG Chest x-ray, 05/07/2024: 1. Interval placement of enteric tube with terminus just distal to the expected level of the GEJ. 2. Interval increase in left lung base pulmonary markings suggestive of possible developing infiltrate. 3. Stable diffuse prominence of the pulmonary vasculature. CT head, 05/07/2024: No acute intracranial hemorrhage, midline shift or mass effect. If symptoms persist, further evaluation with MRI is recommended CVA, neck, 05/13/2024: No hemodynamically significant stenosis, aneurysm or dissection involving the major intracranial and neck vessels. The suggested fistulous connection noted on ultrasound between the distal left common carotid artery and left internal jugular vein is not definitely visualized. No contrast extravasation is noted. CT head, 05/25/2024: No acute intracranial process vital signs Vital Sign Date Time Temp Pulse Resp B/P (MAP) Pulse Ox O2 Delivery O2 Flow Rate FiO2 06/03/24 16:00 85 06/03/24 16:00 98.1 13 111/62 (78) 94 98.1 06/03/24 16:00 Nasal Cannula* 2 28 Total Intake and Output 06/02/24 06/02/24 06/03/24 15:00 23:00 07:00 Intake Total 101.407 ml 1025 ml 530 ml Output Total 1100 ml 700 ml Balance 101.407 ml -75 ml -170 ml medications Current Medications Medications Dose Ordered Sig/Kenisha Route Start Time Stop Time Status Last Admin Dose Admin Sodium Chloride 10 ml Q8HR IV 05/07/24 06:00 06/03/24 13:08 10 ML Ondansetron HCl 4 mg Q4HP PRN IV 05/06/24 22:15 Pantoprazole Sodium 40 mg BID IV 05/08/24 22:00 06/03/24 09:51 40 MG Thiamine HCl 100 mg DAILY IV 05/10/24 10:00 06/03/24 09:51 100 MG Flecainide Acetate 100 mg Q12HR PO 05/09/24 22:00 06/03/24 09:51 100 MG Folic Acid 1 mg DAILY PO 05/11/24 10:00 06/03/24 09:51 1 MG Diagnostic Test (Pha) 1 strip Q6HR 05/10/24 18:00 06/03/24 17:20 1 STRIP Insulin Human Regular FOLLOW SLIDING SCALE Q6HR SC 05/10/24 18:00 06/03/24 17:36 8 UNITS Dextrose 50 ml UD IV 05/10/24 17:15 Sodium Chloride 10 ml QSHIFT@10,22 IV 05/13/24 22:00 06/03/24 09:52 10 ML Albuterol 2.5 mg Q4HR NEB 05/15/24 14:00 06/03/24 14:29 2.5 MG Ipratropium [place] 0.5 mg Q4HR NEB 05/15/24 14:00 06/03/24 14:29 0.5 MG Nystatin 1 applic BID TOP 05/23/24 22:00 06/03/24 09:53 1 APPLIC Metoclopramide HCl 5 mg BID IV 05/23/24 22:00 06/02/24 22:02 5 MG Octreotide Acetate 100 mcg TID SUBCUT 05/24/24 14:00 06/03/24 13:08 100 MCG Midodrine 10 mg TID@0600,1200,1800 PO 05/28/24 12:00 06/03/24 17:20 10 MG Furosemide 20 mg DAILY IV 05/28/24 10:00 06/03/24 09:52 20 MG Methylprednisolone Sodium Succinate 20 mg DAILY IV 05/30/24 10:36 06/03/24 09:52 20 MG Enteral Nutritional Formula 1,000 ml 30ML/HR GT 05/31/24 10:15 Norepinephrine Bitartrate 32 mg/ Sodium Chloride 250 ml @ 0.469 mls/ hr Q24H IV 06/01/24 20:00 06/02/24 00:06 0.469 MLS/HR Purified Water 300 ml Q6HR GT 06/02/24 12:00 06/03/24 17:20 300 ML Lactulose 30 ml Q8HR NG 06/02/24 14:00 06/03/24 13:08 30 ML Ursodiol 300 mg BID PO 06/03/24 10:00 06/03/24 10:57 300 MG objective The patient is well-nourished and well-developed with no distress MENTAL STATUS: Subjective CRANIAL NERVES: Pupils are equally round and reactive.There are conjugated eye movement. No signs of facial weakness. Sensorimotor examined in bilateral transplant distribution is unremarkable. SENSATION: Responses to touch MOTOR: Normal tone in the upper and lower extremity. Normal muscle bulk. No fasciculations. I do not see movement in the extremities REFLEXES: Deep tendon reflexes are symmetrical. Upgoing toes bilaterally CEREBELLAR/COORDINATION: Deferred GAIT/STATION: deferred. laboratory and microbiology Laboratory Tests 06/03/24 04:40 Test 06/03/24 04:40 Range/Units Serum Glucose 202 H 74-106 mg/dL Problem List Altered mental status Metabolic encephalopathy Hepatic encephalopathy Hypoxic encephalopathy Sepsis, septic shock Liver failure Liver cirrhosis Coagulopathy Jaundice Acute kidney failure Urinary tract infection Pneumonia Assessment/Plan Monitoring Supportive treatment Telemetry Oxygen IV antibiotics Thiamine supplementation GI prophylaxis/Protonix Pulmonology on case Nephrology on case GI on case More recommendation per clinical course This medical document was created using an electronic medical record system with [employer] dictation system. Although this document has been carefully reviewed, there may still be some phonetic and typographical errors. These areas are purely typographical due to imperfections of the software programs, and do not reflect any compromise in the patient's medical care Prognosis poor Dietary Evaluation Review Comments: 1. Per RN, pt is able to drink liquid but unable to manage jello. Will Downgrade his CCHO-60 diet to pureed texture. 2. offer Glucern BID if PO is still poor 3. elevated BUN, f/u and reassess after pt has a GI and nephrology consult. 4. consider clinimix as a form of protein supplementation as pt has very low albumin. Expected Outcomes/Goals: Gradual wt loss, better DM control. Plan discussed with: Other GETACHEW BLACKWOOD MD Jun 03, 2024 17:59
--- NOTE | 2024-06-03 22:40 | DVHPNRES ---
Progress Note Date Seen: Jun 03, 2024 Resident Creating Document: TIERRA GALEAS RESIDENT Medical Necessity Reason Pt with a Central, PICC or Fol: Yes The following are medically ne: PICC Line, Mcduffie Catheter Reason for mcduffie catheter: Strict I&O Subjective Review of Systems Patient is a 63-year-old male with a past medical history of liver cirrhosis likely secondary to hep C, liver shunt, CHF, diabetes mellitus, prostate cancer, history of lower GI bleed status post blood transfusion was brought to the ER with a chief complaint of drug overdose. Information gathered from reviewing the chart and talking with the patient's family, as per he was found gargling and unresponsive in a car, possible overdose of morphine following which EMS were called. EMS gave the patient Narcan and he woke up but was unable to recall what happened. Urine drug screen in the ER was positive for amphetamine and opiates. Was obtunded and was on oxygen support. While in the ER patient went into atrial fibrillation rapid ventricular response following which she was given diltiazem. Patient while in the hospital had altered mental status, sepsis likely due to UTI with the underlying liver cirrhosis had to be put on mechanical ventilation and put on vasopressor support. Patient was transferred to the ICU for further care. In ICU patient was treated with meropenem for Klebsiella pneumoniae ESBL multidrug resistant and also coverage for suspected aspiration pneumonia in the right lower lung, diuresis for with the Lasix, rifaximin and lactulose for hepatic encephalopathy, Patient's blood cultures were done twice and did not show any growth after 5 days, respiratory sputum cultures did not show any growth. Patient's mental status remained obtunded even after turning of the sedation, had vasopressor requirements therefore he could not be extubated. Past medical history: Liver cirrhosis likely secondary to hep C, liver shunt, CHF, type 2 diabetes mellitus, prostate cancer status post radiotherapy, history of lower GI bleed s/p blood transfusions Past surgical history: Hernia repair, tips, live knee surgery Social history: Patient lives with the , history of smoking less than 1 pack per day, reported alcohol and illicit drug usage Home medications: Lasix 20 mg b.i.d., gabapentin 300 mg q.8 hours, insulin glargine 15 units SC b.i.d., spironolactone 50 mg daily Review of systems Patient seen and examined at the bedside. - patient been off sedation since . Weaned off norepinephrine yesterday maintaining a MAP> 60. on midodrine and octreotide - patient is delirious and somnolent, responsiveness to verbal commands - patient did not have any fever, WBC count trending down. - patient was had 2 bowel movements in the last 24 hrs Objective vital signs Vital Sign Date Time Temp Pulse Resp B/P (MAP) Pulse Ox O2 Delivery O2 Flow Rate FiO2 06/03/24 22:31 84 14 100 06/03/24 21:00 97.6 111/53 (72) 97.6 06/03/24 19:23 2.0 28 06/03/24 18:36 Nasal Cannula Total Intake and Output 06/02/24 06/02/24 06/03/24 15:00 23:00 07:00 Intake Total 101.407 ml 1025 ml 530 ml Output Total 1100 ml 700 ml Balance 101.407 ml -75 ml -170 ml medications Current Medications Medications Dose Ordered Sig/Kenisha Route Start Time Stop Time Status Last Admin Dose Admin Sodium Chloride 10 ml Q8HR IV 05/07/24 06:00 06/03/24 13:08 10 ML Ondansetron HCl 4 mg Q4HP PRN IV 05/06/24 22:15 Pantoprazole Sodium 40 mg BID IV 05/08/24 22:00 06/03/24 09:51 40 MG Thiamine HCl 100 mg DAILY IV 05/10/24 10:00 06/03/24 09:51 100 MG Flecainide Acetate 100 mg Q12HR PO 05/09/24 22:00 06/03/24 09:51 100 MG Folic Acid 1 mg DAILY PO 05/11/24 10:00 06/03/24 09:51 1 MG Diagnostic Test (Pha) 1 strip Q6HR 05/10/24 18:00 06/03/24 17:20 1 STRIP Insulin Human Regular FOLLOW SLIDING SCALE Q6HR SC 05/10/24 18:00 06/03/24 17:36 8 UNITS Dextrose 50 ml UD IV 05/10/24 17:15 Sodium Chloride 10 ml QSHIFT@10,22 IV 05/13/24 22:00 06/03/24 09:52 10 ML Albuterol 2.5 mg Q4HR NEB 05/15/24 14:00 06/03/24 22:24 2.5 MG Ipratropium [place] 0.5 mg Q4HR NEB 05/15/24 14:00 06/03/24 22:24 0.5 MG Nystatin 1 applic BID TOP 05/23/24 22:00 06/03/24 09:53 1 APPLIC Metoclopramide HCl 5 mg BID IV 05/23/24 22:00 06/02/24 22:02 5 MG Octreotide Acetate 100 mcg TID SUBCUT 05/24/24 14:00 06/03/24 13:08 100 MCG Furosemide 20 mg DAILY IV 05/28/24 10:00 06/03/24 09:52 20 MG Methylprednisolone Sodium Succinate 20 mg DAILY IV 05/30/24 10:36 06/03/24 09:52 20 MG Enteral Nutritional Formula 1,000 ml 30ML/HR GT 05/31/24 10:15 Norepinephrine Bitartrate 32 mg/ Sodium Chloride 250 ml @ 0.469 mls/ hr Q24H IV 06/01/24 20:00 06/02/24 00:06 0.469 MLS/HR Purified Water 300 ml Q6HR GT 06/02/24 12:00 06/03/24 17:20 300 ML Lactulose 30 ml Q8HR NG 06/02/24 14:00 06/03/24 13:08 30 ML Ursodiol 300 mg BID GT 06/03/24 22:00 Midodrine 10 mg TID@0600,1200,1800 GT 06/04/24 06:00 Examination Gen - conjunctival pallor present , scleral icterus present, no cyanosis, no clubbing, no LAD, bilateral 2+ pitting pedal edema Skin - Patients skin is warm and dry, multiple spider angiomata skin on the chest, erythematous rash seen in the groin on both the sides, b/l lower extremity 2+ pitting edema HEENT - normocephalic, atraumatic, moist mucous membranes. Neck - no LAD, no JV distention Pulmonary - decreased breath sounds in the right lower lung, left basilar crackles, no wheezing, no stridor. cardiovascular - variable S1,S2 heard, no added sounds, no murmurs heard. capillary refill normal <2 secs. GI - soft abdomen. no hepatospleenomegaly. Bowel Sounds normoactive Neurological - patient was delirious, responds to verbal commands able to maintain eye contact and responds laboratory and microbiology Laboratory Tests 06/03/24 04:40 Test 06/03/24 04:40 Range/Units Serum Glucose 202 H 74-106 mg/dL Microbiology Date/Time Source Procedure Growth Status 05/31/24 14:00 Blood Blood Culture - Preliminary NO GROWTH AFTER 72 HOURS OF INCUBATION. Resulted 05/23/24 16:00 Sputum Gram Stain - Final Complete 05/23/24 16:00 Respiratory Culture - Final Staphylococcus haemolyticus Presumptive Erickson albicans Complete 05/23/24 12:30 Urine - [place]duff[place] Urine Culture - Final Complete 05/13/24 14:00 Nose MRSA Screen - Final Complete Problem List/Assessment/Plan Problem List/Assessment/Plan Neurological # Acute metabolic encephalopathy likely hepatic encephalopathy/toxic drug- induced/anoxic - head CT 05/07/24 showed no acute intracranial hemorrhage, midline shift or mass effect - urine drug screen at admission positive for opiates and amphetamines - ammonia trending down, on lactulose Respiratory # Acute hypoxemic/hypercarbic respiratory failure # bilateral lower lobe pneumonia likely due to Gram+/-bacteria # bilateral pleural effusion # pulmonary edema with right-sided pleural effusion - on oxygen via nasal cannula at 4 L/min - ABG reviewed today - respiratory acidosis - chest x-ray shows bilateral pulmonary edema with blunting of the right CP angle - albuterol and ipratropium med nebs q.4 hours Cardiovascular # Septic shock likely d/t UTI vs pneumonia, resolved # new onset atrial fibrillation with RVR, resolved currently in sinus rhythm # NSTEMI type 2 likely due to demand supply mismatch - Echo shows LVEF 60% with concentric LVH, right atrial enlargement, right ventricular enlargement - on vasopressor support with norepinephrine, maintaining MAP > 65mmhg - flecainide 100 mg b.i.d. for AFib - [id number] Vasc- 1, has-bled 2 , currently anticoagulation is held, with the patient SOB positive and history of GI bleeding Gastrointestinal # decompensated liver cirrhosis # history of hepatitis-C infection # history of heavy alcohol use # ascites # hepatic encephalopathy - noted increase in bilirubin - low albumin, elevated PT INR, thrombocytopenia - lactulose 30 mL q.8h - currently on tube feeding at 30 mL/hour - Protonix 40 mg IV b.i.d. - methylprednisolone 20 mg q.d. - lasix Nephrology # acute kidney injury likely hemodynamically mediated due to shock,+ contrast likely ATN # hypernatremia - BUN and creatinine, trending down - FENa calculated today at 3% - free water deficit 2 L - free water 300 mL via NG tube q.6 hours Infectious disease # septic shock likely due to UTI versus pneumonia versus ?SBP # candidal infection in the groin - initial urine culture showed growth of multidrug resistant Klebsiella ESBL, on meropenem - initial blood cultures, respiratory sputum cultures negative - repeat blood cultures showed growth of staph. epidermidis, patient on vanco - nystatin powder q.12h for erickson - 05/31 - blood cultures repeated again, show no growth after 24 hours Endocrine # Insulin dependent Diabetes mellitus with hyperglycemia - On ISS - goal blood glucose 140-180 mg/dL Polysubstance Use Acute opiate/methamphetamine intoxication DVT prophylaxis: Sequential compression device PUD prophylaxis: Protonix PICC line in the left forearm- placed on 05/13/2024 Mcduffie's catheter- placed on 05/07/2024 Patient was extubated on 05/29. Weaned off norepinephrine. Patient's guarded prognosis explained to the in detail and the need for BiPAP going forward if the patient's CO2 keeps rising and since he is altered he may end up aspirating. understood and wants the patient to be put on BiPAP if needed and chest compressions but no intubation 06/03- downgraded to telemetry after being off vasopressor support for over 24 hours Goals of care discussed with the patient's Lorna about the patient's prognosis .. prognosis guarded Code status- modified DNR- no chest compression Critical care time excluding procdures spent: 35 mins Plan discussed with Dr. Lozada Plan discussed with: Spouse (Lorna), Other (RN Hanh Wallace )) My Orders My Orders Orders - TIERRA GALEAS RESIDENT Procedure Category Date Status Time * Swallow Request ST 06/03/24 Transmitted 15:43 Transfer Orders XFER 06/03/24 Transmitted 16:23 Ursodiol (Actigall) PHA 06/03/24 In Process 22:00 Dietary Evaluation Review Comments: 1. Per RN, pt is able to drink liquid but unable to manage jello. Will Downgrade his CCHO-60 diet to pureed texture. 2. offer Glucern BID if PO is still poor 3. elevated BUN, f/u and reassess after pt has a GI and nephrology consult. 4. consider clinimix as a form of protein supplementation as pt has very low albumin. Expected Outcomes/Goals: Gradual wt loss, better DM control. TIERRA GALEAS RESIDENT Jun 03, 2024 22:40
[2024-06-03] MEDS: URSODIOL 300 MG CAP GT SCH (23:14)
[2024-06-04] VITALS (13 sets, daily range): BP systolic 101–113; BP diastolic 54–65; PULSE 80–98; RESP 14–22; TEMP 97–98.3; O2SAT 91–100
[2024-06-04] MEDS: MIDODRINE HCL 10 MG TAB GT SCH (05:43)
[2024-06-04] MEDS: OCTREOTIDE ACETATE 100 MCG/ML VL ONE (05:52)
[2024-06-04 06:29] LABS: Eosinophils # (auto) 0 10 ^3/uL (0-0.8); Lymphocytes # (auto) 0.3 10 ^3/uL (0.4-5.4); Monocytes # (auto) 0.7 10 ^3/uL (0-1.3); Nucleated Red Blood Cells % 0.2 %
[2024-06-04 06:33] LABS: Basophils # (auto) 0.2 10 ^3/uL (0-0.2); Basophils % (auto) 1.2 % (0.0-2.0); Hematocrit 28.1 % (41.0-53.0); Hemoglobin 8.5 g/dL (13.5-17.5); Lymphocytes % (auto) 2.6 % (10.0-50.0); Mean Corpuscular Hemoglobin 31.3 pg (28.0-32.0); Mean Corpuscular Hgb Conc. 30.4 g/dL (32.0-36.0); Monocytes % (auto) 5.6 % (0.0-12.0); Neutrophils # (auto) 11.8 10 ^3/uL (1.6-8.6); Neutrophils % (auto) 90.6 % (37.0-80.0); Platelet Count (auto) 61 10^3/uL (140-450); Red Blood Cells 2.73 10^6/uL (4.5-5.90)
[2024-06-04 06:46] LABS: Potassium 4.4 mmol/L (3.5-5.1)
[2024-06-04 06:52] LABS: Anion Gap 11 (5-15); BUN/Creatinine Ratio 52.2 (10.0-20.0)
[2024-06-04 06:54] LABS: Alanine Aminotransferase 111 U/L (7-40); Alkaline Phosphatase 242 U/L (46-116); Aspartate Aminotransferase 65 U/L (13-40); Calcium 9.6 mg/dL (8.7-10.4); Carbon Dioxide 26 mmol/L (20-31); Chloride 117 mmol/L (98-107); Glucose 239 mg/dL (74-106); Sodium 154 mmol/L (136-145); Total Protein 4.9 g/dL (5.7-8.2)
[2024-06-04 06:56] LABS: Blood Urea Nitrogen 95 mg/dL (9-23)
[2024-06-04 06:59] LABS: Bilirubin, Total 33.9 mg/dL (0.2-1.0)
[2024-06-04 07:20] LABS: Red Cell Distribution Width 28.9 % (11.8-14.3)
[2024-06-04] MEDS: ALBUMIN 25% 100 ML IV ONE (13:34)
--- NOTE | 2024-06-04 19:34 | DVHPN2 ---
Subjective Patient is a 63-year-old male with a past medical history of liver cirrhosis likely secondary to hep C, liver shunt, CHF, diabetes mellitus, prostate cancer, history of lower GI bleed status post blood transfusion was brought to the ER with a chief complaint of drug overdose. Information gathered from reviewing the chart and talking with the patient's family, as per he was found gargling and unresponsive in a car, possible overdose of morphine following which EMS were called. EMS gave the patient Narcan and he woke up but was unable to recall what happened. Urine drug screen in the ER was positive for amphetamine and opiates. Was obtunded and was on oxygen support. While in the ER patient went into atrial fibrillation rapid ventricular response following which she was given diltiazem. Patient while in the hospital had altered mental status, sepsis likely due to UTI with the underlying liver cirrhosis had to be put on mechanical ventilation and put on vasopressor support. Patient was transferred to the ICU for further care. In ICU patient was treated with meropenem for Klebsiella pneumoniae ESBL multidrug resistant and also coverage for suspected aspiration pneumonia in the right lower lung, diuresis for with the Lasix, rifaximin and lactulose for hepatic encephalopathy, Patient's blood cultures were done twice and did not show any growth after 5 days, respiratory sputum cultures did not show any growth. Patient's mental status remained obtunded even after turning of the sedation, had vasopressor requirements therefore he could not be extubated. Past medical history: Liver cirrhosis likely secondary to hep C, liver shunt, CHF, type 2 diabetes mellitus, prostate cancer status post radiotherapy, history of lower GI bleed s/p blood transfusions Past surgical history: Hernia repair, tips, live knee surgery Social history: Patient lives with the , history of smoking less than 1 pack per day, reported alcohol and illicit drug usage Home medications: Lasix 20 mg b.i.d., gabapentin 300 mg q.8 hours, insulin glargine 15 units SC b.i.d., spironolactone 50 mg daily Review of systems Patient seen and examined at the bedside. - patient been off sedation since . Weaned off norepinephrine yesterday maintaining a MAP> 60. on midodrine and octreotide - patient is delirious and somnolent, responsiveness to verbal commands - patient did not have any fever, WBC count trending down. Reviewed: Care Plan, H&P, Labs, Medications, Previous Orders, Radiology, Other (Consultations) Changes from previous H/P or p: No Changes General: Per HPI Objective Vitals Vital Signs Date Time Temp Pulse Resp B/P (MAP) Pulse Ox O2 Delivery O2 Flow Rate FiO2 06/04/24 19:01 88 14 100 06/04/24 18:55 Nasal Cannula 2.0 06/04/24 18:55 28 06/04/24 17:00 97.7 113/65 (81) 97.7 Intake/Output Intake and Output 06/04/24 07:00 Intake Total 2160 ml Output Total 2250 ml Balance -90 ml Intake Oral 700 ml IV Total 100 ml Tube Feeding 960 ml Other 400 ml Output Urine Total 2250 ml Exam Gen - conjunctival pallor present , scleral icterus present, no cyanosis, no clubbing, no LAD, bilateral 2+ pitting pedal edema Skin - Patients skin is warm and dry, multiple spider angiomata skin on the chest, erythematous rash seen in the groin on both the sides, b/l lower extremity 2+ pitting edema HEENT - normocephalic, atraumatic, moist mucous membranes. Neck - no LAD, no JV distention Pulmonary - decreased breath sounds in the right lower lung, left basilar crackles, no wheezing, no stridor. cardiovascular - variable S1,S2 heard, no added sounds, no murmurs heard. capillary refill normal <2 secs. GI - soft abdomen. no hepatospleenomegaly. Bowel Sounds normoactive Neurological - patient was delirious, responds to verbal commands able to maintain eye contact and responds General Appearance: moderate distress, Other (Encephalopathic) HEENT: Atraumatic, Other (NG tube in place) Lungs: Clear to auscultation, Normal air movement, Other (Mechanical ventilation) Cardiovascular: Normal S1, Normal S2, No murmurs, Other (Tachycardia) Abdomen: Normal bowel sounds, Soft, Other (Ventral hernia; reducible; no ascites palpated) Genitourinary: Other (Junior's) Extremities: Normal pulses, Other (Stasis changes of the skin of lower extremities with nonpitting edema) Neuro: Other (Lethargic; opening eyes to painful stimuli) Skin: Dry, Intact, Other (Jaundiced) Psych/Mental Status: Other (Lethargic) Medications Current Medications Medications Dose Ordered Sig/Kenisha Route Start Time Stop Time Status Last Admin Dose Admin Sodium Chloride 10 ml Q8HR IV 05/07/24 06:00 06/04/24 14:00 10 ML Ondansetron HCl 4 mg Q4HP PRN IV 05/06/24 22:15 Pantoprazole Sodium 40 mg BID IV 05/08/24 22:00 06/04/24 08:50 40 MG Thiamine HCl 100 mg DAILY IV 05/10/24 10:00 06/04/24 08:51 100 MG Flecainide Acetate 100 mg Q12HR PO 05/09/24 22:00 06/04/24 10:00 100 MG Folic Acid 1 mg DAILY PO 05/11/24 10:00 06/04/24 08:49 1 MG Diagnostic Test (Pha) 1 strip Q6HR 05/10/24 18:00 06/04/24 18:19 1 STRIP Insulin Human Regular FOLLOW SLIDING SCALE Q6HR SC 05/10/24 18:00 06/04/24 18:19 8 UNITS Dextrose 50 ml UD IV 05/10/24 17:15 Sodium Chloride 10 ml QSHIFT@10,22 IV 05/13/24 22:00 06/04/24 10:00 10 ML Albuterol 2.5 mg Q4HR NEB 05/15/24 14:00 06/04/24 18:58 2.5 MG Ipratropium [place] 0.5 mg Q4HR NEB 05/15/24 14:00 06/04/24 18:58 0.5 MG Nystatin 1 applic BID TOP 05/23/24 22:00 06/04/24 10:00 1 APPLIC Metoclopramide HCl 5 mg BID IV 05/23/24 22:00 06/04/24 08:50 5 MG Octreotide Acetate 100 mcg TID SUBCUT 05/24/24 14:00 06/04/24 14:47 100 MCG Furosemide 20 mg DAILY IV 05/28/24 10:00 06/04/24 08:51 20 MG Methylprednisolone Sodium Succinate 20 mg DAILY IV 05/30/24 10:36 06/04/24 08:50 20 MG Enteral Nutritional Formula 1,000 ml 30ML/HR GT 05/31/24 10:15 Norepinephrine Bitartrate 32 mg/ Sodium Chloride 250 ml @ 0.469 mls/ hr Q24H IV 06/01/24 20:00 06/02/24 00:06 0.469 MLS/HR Purified Water 300 ml Q6HR GT 06/02/24 12:00 06/04/24 18:18 300 ML Lactulose 30 ml Q8HR NG 06/02/24 14:00 06/04/24 14:46 30 ML Ursodiol 300 mg BID GT 06/03/24 22:00 06/04/24 10:00 300 MG Midodrine 10 mg TID@0600,1200,1800 GT 06/04/24 06:00 06/04/24 18:18 10 MG Laboratory Results Laboratory Tests 06/04/24 06:05 Chemistry Test 06/04/24 06:05 Albumin 3.0 g/dL (3.2-4.8) L Calcium Level 9.6 mg/dL (8.7-10.4) Total Protein 4.9 g/dL (5.7-8.2) L LFT Test 06/04/24 06:05 Alanine Aminotransferase (ALT) 111 U/L (7-40) H Alkaline Phosphatase 242 U/L (46-116) H Aspartate Amino Transferase (AST) 65 U/L (13-40) H Total Bilirubin 33.9 mg/dL (0.2-1.0) H Urinalysis Test 05/07/24 01:30 05/23/24 12:30 Urine Mucus Few (None Seen) Urine Color Dark-yellow (Yellow) Urine Clarity Clear (Clear) Urine pH 5.5 (5.0-9.0) Urine Specific [place] 1.010 (1.001-1.035) Urine Protein Negative (Negative) Urine Ketones Negative (Negative) Urine Blood 2+ /uL (Negative) H Urine Nitrite Negative (Negative) Urine Bilirubin 2+ (Negative) Urine Urobilinogen Normal mg/dL (Negative) Urine Leukocyte Esterase Negative /uL (Negative) Urine RBC 26 /hpf (0 - 3) Urine Microscopic WBC 2 /HPF (0-3) Urine Squamous Epithelial Cells Few /hpf (<5) Urine Bacteria Few /hpf (None Seen) H Urine Hyaline Casts Few /lpf (0 - 2) Urine Yeast (Budding) Occasional /hpf (None Urine Creatinine 26.09 mg/dL (30.0-125.0) L Urine Protein/Creatinine Ratio 0.94 Urine Sodium 54 mmol/L (40-220) Urine Glucose Normal mg/dL (Normal) Urine Total Protein 24.5 mg/dL (1-14) H Microbiology Microbiology Date/Time Source Procedure Growth Status 05/31/24 14:00 Blood Blood Culture - Preliminary NO GROWTH AFTER 72 HOURS OF INCUBATION. Resulted 05/23/24 16:00 Sputum Gram Stain - Final Complete 05/23/24 16:00 Respiratory Culture - Final Staphylococcus haemolyticus Presumptive Erickson albicans Complete 05/23/24 12:30 Urine - Junior Port Urine Culture - Final Complete 05/13/24 14:00 Nose MRSA Screen - Final Complete Labs and/or images reviewed: Labs reviewed by me, Image(s) reviewed by me Assessment/Plan Assessment/Plan 06/04 patient has some minimal responsiveness to tactile stimuli. He has a systolic murmur and a mild sternal heave, bowel sounds present. Patient is on no vasopressors could possibly be improving. Currently patient was on Hytrin/octreotide/lactulose/ursodiol/Lasix with albumin. We will continue primary team's plan through the weekend Neurological # Acute metabolic encephalopathy likely hepatic encephalopathy/toxic drug- induced/anoxic - head CT 05/07/24 showed no acute intracranial hemorrhage, midline shift or mass effect - urine drug screen at admission positive for opiates and amphetamines - ammonia trending down, on lactulose Respiratory # Acute hypoxemic/hypercarbic respiratory failure # bilateral lower lobe pneumonia likely due to Gram+/-bacteria # bilateral pleural effusion # pulmonary edema with right-sided pleural effusion - on oxygen via nasal cannula at 4 L/min - ABG reviewed today - respiratory acidosis - chest x-ray shows bilateral pulmonary edema with blunting of the right CP angle - albuterol and ipratropium med nebs q.4 hours Cardiovascular # Septic shock likely d/t UTI vs pneumonia, resolved # new onset atrial fibrillation with RVR, resolved currently in sinus rhythm # NSTEMI type 2 likely due to demand supply mismatch - Echo shows LVEF 60% with concentric LVH, right atrial enlargement, right ventricular enlargement - on vasopressor support with norepinephrine, maintaining MAP > 65mmhg - flecainide 100 mg b.i.d. for AFib - [id number] Vasc- 1, has-bled 2 , currently anticoagulation is held, with the patient SOB positive and history of GI bleeding Gastrointestinal # decompensated liver cirrhosis # history of hepatitis-C infection # history of heavy alcohol use # ascites # hepatic encephalopathy - noted increase in bilirubin - low albumin, elevated PT INR, thrombocytopenia - lactulose 30 mL q.8h - currently on tube feeding at 30 mL/hour - Protonix 40 mg IV b.i.d. - methylprednisolone 20 mg q.d. - lasix Nephrology # acute kidney injury likely hemodynamically mediated due to shock,+ contrast likely ATN # hypernatremia - BUN and creatinine, trending down - FENa calculated today at 3% - free water deficit 2 L - free water 300 mL via NG tube q.6 hours Infectious disease # septic shock likely due to UTI versus pneumonia versus ?SBP # candidal infection in the groin - initial urine culture showed growth of multidrug resistant Klebsiella ESBL, on meropenem - initial blood cultures, respiratory sputum cultures negative - repeat blood cultures showed growth of staph. epidermidis, patient on vanco - nystatin powder q.12h for erickson - 05/31 - blood cultures repeated again, show no growth after 24 hours Endocrine # Insulin dependent Diabetes mellitus with hyperglycemia - On ISS - goal blood glucose 140-180 mg/dL Polysubstance Use Acute opiate/methamphetamine intoxication DVT prophylaxis: Sequential compression device PUD prophylaxis: Protonix PICC line in the left forearm- placed on 05/13/2024 Junior's catheter- placed on 05/07/2024 Patient was extubated on 05/29. Weaned off norepinephrine. Patient's guarded prognosis explained to the in detail and the need for BiPAP going forward if the patient's CO2 keeps rising and since he is altered he may end up aspirating. understood and wants the patient to be put on BiPAP if needed and chest compressions but no intubation 06/03- downgraded to telemetry after being off vasopressor support for over 24 hours Goals of care discussed with the patient's Lorna about the patient's prognosis .. prognosis guarded Code status- modified DNR- no chest compression Plan discussed with: Other Date of Service: Jun 04, 2024 Billing Provider: LUIS ALFREDO CARLISLE MD Common Visit Codes: [id number] INP/OBS CARE(HIGH) LUIS ALFREDO CARLISLE MD Jun 04, 2024 19:34
--- NOTE | 2024-06-04 23:06 | DVHPN2 ---
Progress Note - Dictate Date Seen: Jun 04, 2024 Medical Necessity Reason Pt with a Central, PICC or Fol: Yes The following are medically ne: PICC Line, Mcduffie Catheter Reason for mcduffie catheter: Strict I&O Subjective Mr. Linder is a 63 years old gentleman with a history of diabetes, liver cirrhosis, hepatitis-C infection, cancer, the patient was brought to the [facility] on 05/06/2024 with a chief complaint of overdose. I have seen and examined the patient was, discussed with his nurse. His eyes are closed without is responsive to verbal stimuli, he does not move extremities, looks tired Blood culture, 05/23/2024: Gram-positive cocci in clusters Urine culture, 05/07/2024: Klebsiella pneumoniae Stool Occult blood, 06/09/2024: Positive UDS, 05/07/2024: Opiates, amphetamine Plasma alcohol, 05/06/2024: <3 Urinalysis, 05/07/2024: WBC: 193, urine leukocyte esterase: 2+ ABG, 05/07/2024: Combined respiratory and metabolic acidosis, 05/13/2024: Metabolic acidosis, 05/15/2024: Respiratory acidosis, 05/19/2024: Respiratory acidosis, 05/25/2024: Respiratory acidosis WBC/HB/PLT/MCV, 05/25/2024: 19.5/8.4/100/93.8 PT/INR/PTT, 05/16/2024: 19.4/1.96, 05/20/2024: 17.2/1.71 BUN/CR, 05/25/2024: 73/1.95, 06/03/24: 83/1.81 GFR, 10/20/2024: 38 TBI/AST/ALT/AP, 05/25/2024: 25.2/133/76/292, 06/03/2024: 32.6/84/109/242 NH3, 05/07/24: 84, 05/12/2024: 30, 05/13/24: 82, 05/16/2024: 43, 05/24/2024: 37 EEG, 05/25/24: Remarkably abnormal EEG Chest x-ray, 05/07/2024: 1. Interval placement of enteric tube with terminus just distal to the expected level of the GEJ. 2. Interval increase in left lung base pulmonary markings suggestive of possible developing infiltrate. 3. Stable diffuse prominence of the pulmonary vasculature. CT head, 05/07/2024: No acute intracranial hemorrhage, midline shift or mass effect. If symptoms persist, further evaluation with MRI is recommended CVA, neck, 05/13/2024: No hemodynamically significant stenosis, aneurysm or dissection involving the major intracranial and neck vessels. The suggested fistulous connection noted on ultrasound between the distal left common carotid artery and left internal jugular vein is not definitely visualized. No contrast extravasation is noted. CT head, 05/25/2024: No acute intracranial process vital signs Vital Sign Date Time Temp Pulse Resp B/P (MAP) Pulse Ox O2 Delivery O2 Flow Rate FiO2 06/04/24 21:24 80 16 99 06/04/24 21:15 Nasal Cannula 2.0 06/04/24 21:15 28 06/04/24 21:00 98.3 108/57 (74) 98.3 Total Intake and Output 06/03/24 06/03/24 06/04/24 15:00 23:00 07:00 Intake Total 1430 ml 730 ml Output Total 1400 ml 850 ml Balance 30 ml -120 ml medications Current Medications Medications Dose Ordered Sig/Kenisha Route Start Time Stop Time Status Last Admin Dose Admin Sodium Chloride 10 ml Q8HR IV 05/07/24 06:00 06/04/24 21:57 10 ML Ondansetron HCl 4 mg Q4HP PRN IV 05/06/24 22:15 Pantoprazole Sodium 40 mg BID IV 05/08/24 22:00 06/04/24 21:57 40 MG Thiamine HCl 100 mg DAILY IV 05/10/24 10:00 06/04/24 08:51 100 MG Flecainide Acetate 100 mg Q12HR PO 05/09/24 22:00 06/04/24 22:02 100 MG Folic Acid 1 mg DAILY PO 05/11/24 10:00 06/04/24 08:49 1 MG Diagnostic Test (Pha) 1 strip Q6HR 05/10/24 18:00 06/04/24 18:19 1 STRIP Insulin Human Regular FOLLOW SLIDING SCALE Q6HR SC 05/10/24 18:00 06/04/24 18:19 8 UNITS Dextrose 50 ml UD IV 05/10/24 17:15 Sodium Chloride 10 ml QSHIFT@10,22 IV 05/13/24 22:00 06/04/24 21:58 10 ML Albuterol 2.5 mg Q4HR NEB 05/15/24 14:00 06/04/24 21:17 2.5 MG Ipratropium [place] 0.5 mg Q4HR NEB 05/15/24 14:00 06/04/24 21:17 0.5 MG Nystatin 1 applic BID TOP 05/23/24 22:00 06/04/24 21:59 1 APPLIC Metoclopramide HCl 5 mg BID IV 05/23/24 22:00 06/04/24 21:54 5 MG Octreotide Acetate 100 mcg TID SUBCUT 05/24/24 14:00 06/04/24 21:53 100 MCG Furosemide 20 mg DAILY IV 05/28/24 10:00 06/04/24 08:51 20 MG Methylprednisolone Sodium Succinate 20 mg DAILY IV 05/30/24 10:36 06/04/24 08:50 20 MG Enteral Nutritional Formula 1,000 ml 30ML/HR GT 05/31/24 10:15 Norepinephrine Bitartrate 32 mg/ Sodium Chloride 250 ml @ 0.469 mls/ hr Q24H IV 06/01/24 20:00 06/02/24 00:06 0.469 MLS/HR Purified Water 300 ml Q6HR GT 06/02/24 12:00 06/04/24 18:18 300 ML Lactulose 30 ml Q8HR NG 06/02/24 14:00 06/04/24 22:08 30 ML Ursodiol 300 mg BID GT 06/03/24 22:00 06/04/24 22:15 300 MG Midodrine 10 mg TID@0600,1200,1800 GT 06/04/24 06:00 06/04/24 18:18 10 MG objective The patient is well-nourished and well-developed with no distress MENTAL STATUS: Subjective CRANIAL NERVES: Pupils are equally round and reactive.There are conjugated eye movement. No signs of facial weakness. Sensorimotor examined in bilateral transplant distribution is unremarkable. SENSATION: Responses to touch MOTOR: Normal tone in the upper and lower extremity. Normal muscle bulk. No fasciculations. I do not see movement in the extremities REFLEXES: Deep tendon reflexes are symmetrical. CEREBELLAR/COORDINATION: Deferred GAIT/STATION: deferred. laboratory and microbiology Laboratory Tests 06/04/24 06:05 Test 06/04/24 06:05 Range/Units Serum Glucose 239 H 74-106 mg/dL Problem List Altered mental status Metabolic encephalopathy Hepatic encephalopathy Hypoxic encephalopathy Sepsis, septic shock Liver failure Liver cirrhosis Coagulopathy Jaundice Acute kidney failure Urinary tract infection Pneumonia Assessment/Plan Monitoring Supportive treatment Telemetry Oxygen Thiamine supplementation GI prophylaxis/Protonix Pulmonology on case Nephrology on case GI on case More recommendation per clinical course This medical document was created using an electronic medical record system with [employer] [address] dictation system. Although this document has been carefully reviewed, there may still be some phonetic and typographical errors. These areas are purely typographical due to imperfections of the software programs, and do not reflect any compromise in the patient's medical care Prognosis poor Dietary Evaluation Review Comments: 1. Per RN, pt is able to drink liquid but unable to manage jello. Will Downgrade his CCHO-60 diet to pureed texture. 2. offer Glucern BID if PO is still poor 3. elevated BUN, f/u and reassess after pt has a GI and nephrology consult. 4. consider clinimix as a form of protein supplementation as pt has very low albumin. Expected Outcomes/Goals: Gradual wt loss, better DM control. Plan discussed with: Other GETACHEW BLACKWOOD MD Jun 04, 2024 23:06
[2024-06-05] VITALS (20 sets, daily range): BP systolic 107–132; BP diastolic 54–75; PULSE 71–101; RESP 14–28; TEMP 97.6–99.5; O2SAT 91–100
[2024-06-05 10:58] LABS: Eosinophils # (auto) 0 10 ^3/uL (0-0.8); Nucleated Red Blood Cells % 0.7 %; Platelet Count (auto) 64 10^3/uL (140-450)
[2024-06-05 11:04] LABS: Basophils # (auto) 0.2 10 ^3/uL (0-0.2); Hematocrit 29.2 % (41.0-53.0); Hemoglobin 9.1 g/dL (13.5-17.5); Lymphocytes # (auto) 0.5 10 ^3/uL (0.4-5.4); Lymphocytes % (auto) 2.9 % (10.0-50.0); Mean Corpuscular Hemoglobin 32.2 pg (28.0-32.0); Mean Corpuscular Hgb Conc. 31.2 g/dL (32.0-36.0); Monocytes # (auto) 1.6 10 ^3/uL (0-1.3); Monocytes % (auto) 8.8 % (0.0-12.0); Neutrophils # (auto) 15.4 10 ^3/uL (1.6-8.6); Neutrophils % (auto) 87.3 % (37.0-80.0); Red Blood Cells 2.84 10^6/uL (4.5-5.90); Red Cell Distribution Width 30.2 % (11.8-14.3); White Blood Cell 17.7 10^3/uL (4.4-10.8)
[2024-06-05 11:14] LABS: Potassium 4.7 mmol/L (3.5-5.1)
[2024-06-05 11:17] LABS: Alanine Aminotransferase 113 U/L (7-40); Albumin 3.2 g/dL (3.2-4.8); Alkaline Phosphatase 244 U/L (46-116); Anion Gap 10 (5-15); Aspartate Aminotransferase 87 U/L (13-40); BUN/Creatinine Ratio 50.2 (10.0-20.0); Calcium 9.8 mg/dL (8.7-10.4); Carbon Dioxide 27 mmol/L (20-31); Chloride 121 mmol/L (98-107); Glucose 210 mg/dL (74-106); Sodium 158 mmol/L (136-145)
[2024-06-05 11:19] LABS: Blood Urea Nitrogen 101 mg/dL (9-23)
--- NOTE | 2024-06-05 17:58 | DVHPN2 ---
Subjective Patient is a 63-year-old male with a past medical history of liver cirrhosis likely secondary to hep C, liver shunt, CHF, diabetes mellitus, prostate cancer, history of lower GI bleed status post blood transfusion was brought to the ER with a chief complaint of drug overdose. Information gathered from reviewing the chart and talking with the patient's family, as per he was found gargling and unresponsive in a car, possible overdose of morphine following which EMS were called. EMS gave the patient Narcan and he woke up but was unable to recall what happened. Urine drug screen in the ER was positive for amphetamine and opiates. Was obtunded and was on oxygen support. While in the ER patient went into atrial fibrillation rapid ventricular response following which she was given diltiazem. Patient while in the hospital had altered mental status, sepsis likely due to UTI with the underlying liver cirrhosis had to be put on mechanical ventilation and put on vasopressor support. Patient was transferred to the ICU for further care. In ICU patient was treated with meropenem for Klebsiella pneumoniae ESBL multidrug resistant and also coverage for suspected aspiration pneumonia in the right lower lung, diuresis for with the Lasix, rifaximin and lactulose for hepatic encephalopathy, Patient's blood cultures were done twice and did not show any growth after 5 days, respiratory sputum cultures did not show any growth. Patient's mental status remained obtunded even after turning of the sedation, had vasopressor requirements therefore he could not be extubated. Past medical history: Liver cirrhosis likely secondary to hep C, liver shunt, CHF, type 2 diabetes mellitus, prostate cancer status post radiotherapy, history of lower GI bleed s/p blood transfusions Past surgical history: Hernia repair, tips, live knee surgery Social history: Patient lives with the , history of smoking less than 1 pack per day, reported alcohol and illicit drug usage Home medications: Lasix 20 mg b.i.d., gabapentin 300 mg q.8 hours, insulin glargine 15 units SC b.i.d., spironolactone 50 mg daily Review of systems Patient seen and examined at the bedside. - patient been off sedation since . Weaned off norepinephrine yesterday maintaining a MAP> 60. on midodrine and octreotide - patient is delirious and somnolent, responsiveness to verbal commands - patient did not have any fever, WBC count trending down. Reviewed: Care Plan, H&P, Labs, Medications, Previous Orders, Radiology, Other (Consultations) Changes from previous H/P or p: No Changes General: Per HPI Objective Vitals Vital Signs Date Time Temp Pulse Resp B/P (MAP) Pulse Ox O2 Delivery O2 Flow Rate FiO2 06/05/24 16:30 97.6 100 14 118/68 (85) 93 97.6 06/05/24 13:25 Nasal Cannula* 2 28 Intake/Output Intake and Output 06/05/24 07:00 Intake Total 0 ml Output Total 2700 ml Balance -2700 ml Intake Oral 0 ml Output Urine Total 2700 ml # Bowel Movements 2 Exam Gen - conjunctival pallor present , scleral icterus present, no cyanosis, no clubbing, no LAD, bilateral 2+ pitting pedal edema Skin - Patients skin is warm and dry, multiple spider angiomata skin on the chest, erythematous rash seen in the groin on both the sides, b/l lower extremity 2+ pitting edema HEENT - normocephalic, atraumatic, moist mucous membranes. Neck - no LAD, no JV distention Pulmonary - decreased breath sounds in the right lower lung, left basilar crackles, no wheezing, no stridor. cardiovascular - variable S1,S2 heard, no added sounds, no murmurs heard. capillary refill normal <2 secs. GI - soft abdomen. no hepatospleenomegaly. Bowel Sounds normoactive Neurological - patient was delirious, responds to verbal commands able to maintain eye contact and responds General Appearance: moderate distress, Other (Encephalopathic) HEENT: Atraumatic, Other (NG tube in place) Lungs: Clear to auscultation, Normal air movement, Other (Mechanical ventilation) Cardiovascular: Normal S1, Normal S2, No murmurs, Other (Tachycardia) Abdomen: Normal bowel sounds, Soft, Other (Ventral hernia; reducible; no ascites palpated) Genitourinary: Other (Junior's) Extremities: Normal pulses, Other (Stasis changes of the skin of lower extremities with nonpitting edema) Neuro: Other (Lethargic; opening eyes to painful stimuli) Skin: Dry, Intact, Other (Jaundiced) Psych/Mental Status: Other (Lethargic) Medications Current Medications Medications Dose Ordered Sig/Kenisha Route Start Time Stop Time Status Last Admin Dose Admin Sodium Chloride 10 ml Q8HR IV 05/07/24 06:00 06/05/24 14:00 10 ML Ondansetron HCl 4 mg Q4HP PRN IV 05/06/24 22:15 Pantoprazole Sodium 40 mg BID IV 05/08/24 22:00 06/05/24 12:50 40 MG Thiamine HCl 100 mg DAILY IV 05/10/24 10:00 06/05/24 12:21 100 MG Flecainide Acetate 100 mg Q12HR PO 05/09/24 22:00 06/04/24 22:02 100 MG Folic Acid 1 mg DAILY PO 05/11/24 10:00 06/05/24 12:20 1 MG Diagnostic Test (Pha) 1 strip Q6HR 05/10/24 18:00 06/05/24 11:58 1 STRIP Insulin Human Regular FOLLOW SLIDING SCALE Q6HR SC 05/10/24 18:00 06/05/24 11:58 4 UNITS Dextrose 50 ml UD IV 05/10/24 17:15 Sodium Chloride 10 ml QSHIFT@10,22 IV 05/13/24 22:00 06/05/24 12:24 10 ML Albuterol 2.5 mg Q4HR NEB 05/15/24 14:00 06/05/24 13:25 2.5 MG Ipratropium [place] 0.5 mg Q4HR NEB 05/15/24 14:00 06/05/24 13:25 0.5 MG Nystatin 1 applic BID TOP 05/23/24 22:00 06/05/24 12:24 1 APPLIC Metoclopramide HCl 5 mg BID IV 05/23/24 22:00 06/05/24 12:29 5 MG Octreotide Acetate 100 mcg TID SUBCUT 05/24/24 14:00 06/05/24 16:44 100 MCG Furosemide 20 mg DAILY IV 05/28/24 10:00 06/05/24 12:23 20 MG Methylprednisolone Sodium Succinate 20 mg DAILY IV 05/30/24 10:36 06/05/24 12:31 20 MG Enteral Nutritional Formula 1,000 ml 30ML/HR GT 05/31/24 10:15 Norepinephrine Bitartrate 32 mg/ Sodium Chloride 250 ml @ 0.469 mls/ hr Q24H IV 06/01/24 20:00 06/02/24 00:06 0.469 MLS/HR Purified Water 300 ml Q6HR GT 06/02/24 12:00 06/05/24 12:25 300 ML Lactulose 30 ml Q8HR NG 06/02/24 14:00 06/05/24 05:36 30 ML Ursodiol 300 mg BID GT 06/03/24 22:00 06/05/24 16:44 300 MG Midodrine 10 mg TID@0600,1200,1800 GT 06/04/24 06:00 06/05/24 12:20 10 MG Laboratory Results Laboratory Tests 06/05/24 10:36 Chemistry Test 06/05/24 10:36 Albumin 3.2 g/dL (3.2-4.8) Calcium Level 9.8 mg/dL (8.7-10.4) Total Protein 5.0 g/dL (5.7-8.2) L LFT Test 06/05/24 10:36 Alanine Aminotransferase (ALT) 113 U/L (7-40) H Alkaline Phosphatase 244 U/L (46-116) H Aspartate Amino Transferase (AST) 87 U/L (13-40) H Total Bilirubin 38.0 mg/dL (0.2-1.0) H Urinalysis Test 05/07/24 01:30 05/23/24 12:30 Urine Mucus Few (None Seen) Urine Color Dark-yellow (Yellow) Urine Clarity Clear (Clear) Urine pH 5.5 (5.0-9.0) Urine Specific [place] 1.010 (1.001-1.035) Urine Protein Negative (Negative) Urine Ketones Negative (Negative) Urine Blood 2+ /uL (Negative) H Urine Nitrite Negative (Negative) Urine Bilirubin 2+ (Negative) Urine Urobilinogen Normal mg/dL (Negative) Urine Leukocyte Esterase Negative /uL (Negative) Urine RBC 26 /hpf (0 - 3) Urine Microscopic WBC 2 /HPF (0-3) Urine Squamous Epithelial Cells Few /hpf (<5) Urine Bacteria Few /hpf (None Seen) H Urine Hyaline Casts Few /lpf (0 - 2) Urine Yeast (Budding) Occasional /hpf (None Urine Creatinine 26.09 mg/dL (30.0-125.0) L Urine Protein/Creatinine Ratio 0.94 Urine Sodium 54 mmol/L (40-220) Urine Glucose Normal mg/dL (Normal) Urine Total Protein 24.5 mg/dL (1-14) H Microbiology Microbiology Date/Time Source Procedure Growth Status 05/31/24 14:00 Blood Blood Culture - Final NO GROWTH AFTER 5 DAYS OF INCUBATION. Complete 05/23/24 16:00 Sputum Gram Stain - Final Complete 05/23/24 16:00 Respiratory Culture - Final Staphylococcus haemolyticus Presumptive Erickson albicans Complete 05/23/24 12:30 Urine - [place] Urine Culture - Final Complete 05/13/24 14:00 Nose MRSA Screen - Final Complete Labs and/or images reviewed: Labs reviewed by me, Image(s) reviewed by me Assessment/Plan Assessment/Plan Update 06/05 06/04 patient has some minimal responsiveness to tactile stimuli. He has a systolic murmur and a mild sternal heave, bowel sounds present. Patient is on no vasopressors could possibly be improving. Currently patient was on Hytrin/octreotide/lactulose/ursodiol/Lasix with albumin. We will continue primary team's plan through the weekend 06/05-patient remains unchanged. Sometimes patient will have periods of awakening which increases hoping patient's family. Patient not waking up during visit but RN says he does open eyes, no concrete episodes where orientation could be measured/obtained. Continue primary team's plan of monitoring/octreotide/lactulose/ursodiol/Lasix. No significant lab changes, vital signs stable. Defer ongoing further management to primary team Neurological # Acute metabolic encephalopathy likely hepatic encephalopathy/toxic drug- induced/anoxic - head CT 05/07/24 showed no acute intracranial hemorrhage, midline shift or mass effect - urine drug screen at admission positive for opiates and amphetamines - ammonia trending down, on lactulose Respiratory # Acute hypoxemic/hypercarbic respiratory failure # bilateral lower lobe pneumonia likely due to Gram+/-bacteria # bilateral pleural effusion # pulmonary edema with right-sided pleural effusion - on oxygen via nasal cannula at 4 L/min - ABG reviewed today - respiratory acidosis - chest x-ray shows bilateral pulmonary edema with blunting of the right CP angle - albuterol and ipratropium med nebs q.4 hours Cardiovascular # Septic shock likely d/t UTI vs pneumonia, resolved # new onset atrial fibrillation with RVR, resolved currently in sinus rhythm # NSTEMI type 2 likely due to demand supply mismatch - Echo shows LVEF 60% with concentric LVH, right atrial enlargement, right ventricular enlargement - on vasopressor support with norepinephrine, maintaining MAP > 65mmhg - flecainide 100 mg b.i.d. for AFib - [id number] Vasc- 1, has-bled 2 , currently anticoagulation is held, with the patient SOB positive and history of GI bleeding Gastrointestinal # decompensated liver cirrhosis # history of hepatitis-C infection # history of heavy alcohol use # ascites # hepatic encephalopathy - noted increase in bilirubin - low albumin, elevated PT INR, thrombocytopenia - lactulose 30 mL q.8h - currently on tube feeding at 30 mL/hour - Protonix 40 mg IV b.i.d. - methylprednisolone 20 mg q.d. - lasix Nephrology # acute kidney injury likely hemodynamically mediated due to shock,+ contrast likely ATN # hypernatremia - BUN and creatinine, trending down - FENa calculated today at 3% - free water deficit 2 L - free water 300 mL via NG tube q.6 hours Infectious disease # septic shock likely due to UTI versus pneumonia versus ?SBP # candidal infection in the groin - initial urine culture showed growth of multidrug resistant Klebsiella ESBL, on meropenem - initial blood cultures, respiratory sputum cultures negative - repeat blood cultures showed growth of staph. epidermidis, patient on vanco - nystatin powder q.12h for erickson - 05/31 - blood cultures repeated again, show no growth after 24 hours Endocrine # Insulin dependent Diabetes mellitus with hyperglycemia - On ISS - goal blood glucose 140-180 mg/dL Polysubstance Use Acute opiate/methamphetamine intoxication DVT prophylaxis: Sequential compression device PUD prophylaxis: Protonix PICC line in the left forearm- placed on 05/13/2024 Junior's catheter- placed on 05/07/2024 Patient was extubated on 05/29. Weaned off norepinephrine. Patient's guarded prognosis explained to the in detail and the need for BiPAP going forward if the patient's CO2 keeps rising and since he is altered he may end up aspirating. understood and wants the patient to be put on BiPAP if needed and chest compressions but no intubation 06/03- downgraded to telemetry after being off vasopressor support for over 24 hours Goals of care discussed with the patient's Lorna about the patient's prognosis .. prognosis guarded Code status- modified DNR- no chest compression Plan discussed with: Spouse Date of Service: Jun 05, 2024 Billing Provider: LUIS ALFREDO CARLISLE MD Common Visit Codes: [id number] INP/OBS CARE(HIGH) LUIS ALFREDO CARLISLE MD Jun 05, 2024 17:58
[2024-06-05] MEDS: Vital AF 1.2 Cal 1 liter bottle GT SCH (21:31)
[2024-06-06] VITALS (20 sets, daily range): BP systolic 101–119; BP diastolic 46–65; PULSE 51–95; RESP 16–19; TEMP 96.9–98.1; O2SAT 93–100
[2024-06-06 07:02] LABS: Anion Gap 13 (5-15); BUN/Creatinine Ratio 49.6 (10.0-20.0)
[2024-06-06 07:30] LABS: Alanine Aminotransferase 122 U/L (7-40); Albumin 2.9 g/dL (3.2-4.8); Alkaline Phosphatase 229 U/L (46-116); Aspartate Aminotransferase 94 U/L (13-40); Bilirubin, Total 37.4 mg/dL (0.2-1.0); Blood Urea Nitrogen 112 mg/dL (9-23); Calcium 9.9 mg/dL (8.7-10.4); Carbon Dioxide 24 mmol/L (20-31); Chloride 121 mmol/L (98-107); Glucose 179 mg/dL (74-106); Sodium 158 mmol/L (136-145); Total Protein 4.7 g/dL (5.7-8.2)
[2024-06-06] MEDS: ALBUMIN 25% 100 ML IV ONE (10:08)
[2024-06-06] MEDS: D5W 5% 1,000 ML IV SCH (17:18)
--- NOTE | 2024-06-06 18:27 | DVHPN2 ---
Progress Note - Dictate Date Seen: Jun 06, 2024 Medical Necessity Reason Pt with a Central, PICC or Fol: Yes The following are medically ne: PICC Line, Mcduffie Catheter Reason for mcduffie catheter: Strict I&O Subjective No new complaints, patient remains extubated He is on 2 L nasal cannula saturating well Liver enzymes persistently elevated with a bilirubin upto 37 2 bowel movements recorded, vital signs Vital Sign Date Time Temp Pulse Resp B/P (MAP) Pulse Ox O2 Delivery O2 Flow Rate FiO2 06/06/24 16:30 97.1 84 18 119/62 (81) 95 97.1 06/06/24 08:00 Nasal Cannula* 2 28 Total Intake and Output 06/05/24 06/05/24 06/06/24 15:00 23:00 07:00 Intake Total 2320 ml 630 ml Output Total 2400 ml Balance -80 ml 630 ml medications Current Medications Medications Dose Ordered Sig/Kenisha Route Start Time Stop Time Status Last Admin Dose Admin Sodium Chloride 10 ml Q8HR IV 05/07/24 06:00 06/06/24 14:00 10 ML Ondansetron HCl 4 mg Q4HP PRN IV 05/06/24 22:15 Pantoprazole Sodium 40 mg BID IV 05/08/24 22:00 06/05/24 21:30 40 MG Thiamine HCl 100 mg DAILY IV 05/10/24 10:00 06/06/24 10:09 100 MG Flecainide Acetate 100 mg Q12HR PO 05/09/24 22:00 06/06/24 10:09 100 MG Folic Acid 1 mg DAILY PO 05/11/24 10:00 06/06/24 10:09 1 MG Diagnostic Test (Pha) 1 strip Q6HR 05/10/24 18:00 06/06/24 17:18 1 STRIP Insulin Human Regular FOLLOW SLIDING SCALE Q6HR SC 05/10/24 18:00 06/06/24 17:29 8 UNITS Dextrose 50 ml UD IV 05/10/24 17:15 Sodium Chloride 10 ml QSHIFT@10,22 IV 05/13/24 22:00 06/06/24 10:10 10 ML Albuterol 2.5 mg Q4HR NEB 05/15/24 14:00 06/06/24 13:59 2.5 MG Ipratropium [place] 0.5 mg Q4HR NEB 05/15/24 14:00 06/06/24 13:59 0.5 MG Nystatin 1 applic BID TOP 05/23/24 22:00 06/06/24 10:13 1 APPLIC Octreotide Acetate 100 mcg TID SUBCUT 05/24/24 14:00 06/06/24 15:16 100 MCG Furosemide 20 mg DAILY IV 05/28/24 10:00 06/06/24 10:10 20 MG Methylprednisolone Sodium Succinate 20 mg DAILY IV 05/30/24 10:36 06/06/24 10:10 20 MG Enteral Nutritional Formula 1,000 ml 30ML/HR GT 05/31/24 10:15 06/05/24 21:31 1,000 ML Purified Water 300 ml Q6HR GT 06/02/24 12:00 06/06/24 17:18 300 ML Lactulose 30 ml Q8HR NG 06/02/24 14:00 06/06/24 15:15 30 ML Ursodiol 300 mg BID GT 06/03/24 22:00 06/06/24 12:25 300 MG Midodrine 10 mg TID@0600,1200,1800 GT 06/04/24 06:00 06/06/24 17:18 10 MG Dextrose 1,000 ml @ 50 mls/hr Q20H IV 06/06/24 07:45 06/06/24 17:18 50 MLS/HR objective General: Extubated but still fairly lethargic and unresponsive HEENT: NC/AT EOMI dry mucous membranes Heart: Tachycardic regular rhythm Abdomen: Soft nontender nondistended Extremity: No clubbing cyanosis or edema laboratory and microbiology Laboratory Tests 06/06/24 05:26 06/05/24 10:36 Test 06/06/24 05:26 Range/Units Serum Glucose 179 H 74-106 mg/dL Problems(with codes): (1) Jaundice (2) Aspiration pneumonia (3) MRSA (methicillin resistant Staphylococcus aureus) septicemia (4) Hepatitis C (5) Liver failure (6) Cirrhosis (7) Ascites (8) Pulmonary vascular congestion (9) Anemia, unspecified Prognosis Plan Patient is is requesting to have the NG tube removed Currently however patient is at risk of aspiration and we will slowly start with a pureed diet as recommended by swallow evaluation Patient needs to have head end elevated to 45 at all times He will need assistance with his meals patient's states that she wants to take him home Review his medications patient's jaundice is multifactorial likely related to underlying liver disease compounded by possible cholestasis from flecainide and recent antibiotic use I noted that the patient has been restarted back on ursodiol, I will increase his dose to ursodiol 300 mg p.o. three times a day Monitor labs ;Prognosis is poor and guarded Dietary Evaluation Review Comments: 1. Per RN, pt is able to drink liquid but unable to manage jello. Will Downgrade his CCHO-60 diet to pureed texture. 2. offer Glucern BID if PO is still poor 3. elevated BUN, f/u and reassess after pt has a GI and nephrology consult. 4. consider clinimix as a form of protein supplementation as pt has very low albumin. Expected Outcomes/Goals: Gradual wt loss, better DM control. Plan discussed with: Patient, Other () PAULINA BAINS MD Jun 06, 2024 18:27
--- NOTE | 2024-06-06 20:29 | DVHPNRES ---
Progress Note Date Seen: Jun 06, 2024 Resident Creating Document: TIERRA GALEAS RESIDENT Medical Necessity Reason Pt with a Central, PICC or Fol: Yes The following are medically ne: PICC Line, Mcduffie Catheter Reason for mcduffie catheter: Strict I&O Subjective Review of Systems Patient is a 63-year-old male with a past medical history of liver cirrhosis likely secondary to hep C, liver shunt, CHF, diabetes mellitus, prostate cancer, history of lower GI bleed status post blood transfusion was brought to the ER with a chief complaint of drug overdose. Information gathered from reviewing the chart and talking with the patient's family, as per he was found gargling and unresponsive in a car, possible overdose of morphine following which EMS were called. EMS gave the patient Narcan and he woke up but was unable to recall what happened. Urine drug screen in the ER was positive for amphetamine and opiates. Was obtunded and was on oxygen support. While in the ER patient went into atrial fibrillation rapid ventricular response following which she was given diltiazem. Patient while in the hospital had altered mental status, sepsis likely due to UTI with the underlying liver cirrhosis had to be put on mechanical ventilation and put on vasopressor support. Patient was transferred to the ICU for further care. In ICU patient was treated with meropenem for Klebsiella pneumoniae ESBL multidrug resistant and also coverage for suspected aspiration pneumonia in the right lower lung, diuresis for with the Lasix, rifaximin and lactulose for hepatic encephalopathy, Patient's blood cultures were done twice and did not show any growth after 5 days, respiratory sputum cultures did not show any growth. Patient's mental status remained obtunded even after turning of the sedation, had vasopressor requirements therefore he could not be extubated. Past medical history: Liver cirrhosis likely secondary to hep C, liver shunt, CHF, type 2 diabetes mellitus, prostate cancer status post radiotherapy, history of lower GI bleed s/p blood transfusions Past surgical history: Hernia repair, tips, live knee surgery Social history: Patient lives with the , history of smoking less than 1 pack per day, reported alcohol and illicit drug usage Home medications: Lasix 20 mg b.i.d., gabapentin 300 mg q.8 hours, insulin glargine 15 units SC b.i.d., spironolactone 50 mg daily Review of systems Patient seen and examined at the bedside. - patient has been off vasopressors since yesterday maintaining a MAP> 60. on midodrine and octreotide - patient is delirious and somnolent, responsiveness to verbal commands - patient did not have any fever - patient was had 2 bowel movements in the last 24 hrs - urine output 2400ml Objective vital signs Vital Sign Date Time Temp Pulse Resp B/P (MAP) Pulse Ox O2 Delivery O2 Flow Rate FiO2 06/06/24 16:30 97.1 84 18 119/62 (81) 95 97.1 06/06/24 08:00 Nasal Cannula* 2 28 Total Intake and Output 06/05/24 06/05/24 06/06/24 15:00 23:00 07:00 Intake Total 2320 ml 630 ml Output Total 2400 ml Balance -80 ml 630 ml medications Current Medications Medications Dose Ordered Sig/Kenisha Route Start Time Stop Time Status Last Admin Dose Admin Sodium Chloride 10 ml Q8HR IV 05/07/24 06:00 06/06/24 14:00 10 ML Ondansetron HCl 4 mg Q4HP PRN IV 05/06/24 22:15 Pantoprazole Sodium 40 mg BID IV 05/08/24 22:00 06/05/24 21:30 40 MG Thiamine HCl 100 mg DAILY IV 05/10/24 10:00 06/06/24 10:09 100 MG Flecainide Acetate 100 mg Q12HR PO 05/09/24 22:00 06/06/24 10:09 100 MG Folic Acid 1 mg DAILY PO 05/11/24 10:00 06/06/24 10:09 1 MG Diagnostic Test (Pha) 1 strip Q6HR 05/10/24 18:00 06/06/24 17:18 1 STRIP Insulin Human Regular FOLLOW SLIDING SCALE Q6HR SC 05/10/24 18:00 06/06/24 17:29 8 UNITS Dextrose 50 ml UD IV 05/10/24 17:15 Sodium Chloride 10 ml QSHIFT@10,22 IV 05/13/24 22:00 06/06/24 10:10 10 ML Albuterol 2.5 mg Q4HR NEB 05/15/24 14:00 06/06/24 19:22 2.5 MG Ipratropium [place] 0.5 mg Q4HR NEB 05/15/24 14:00 06/06/24 19:22 0.5 MG Nystatin 1 applic BID TOP 05/23/24 22:00 06/06/24 10:13 1 APPLIC Octreotide Acetate 100 mcg TID SUBCUT 05/24/24 14:00 06/06/24 15:16 100 MCG Furosemide 20 mg DAILY IV 05/28/24 10:00 06/06/24 10:10 20 MG Methylprednisolone Sodium Succinate 20 mg DAILY IV 05/30/24 10:36 06/06/24 10:10 20 MG Enteral Nutritional Formula 1,000 ml 30ML/HR GT 05/31/24 10:15 06/05/24 21:31 1,000 ML Purified Water 300 ml Q6HR GT 06/02/24 12:00 06/06/24 17:18 300 ML Lactulose 30 ml Q8HR NG 06/02/24 14:00 06/06/24 15:15 30 ML Midodrine 10 mg TID@0600,1200,1800 GT 06/04/24 06:00 06/06/24 17:18 10 MG Dextrose 1,000 ml @ 50 mls/hr Q20H IV 06/06/24 07:45 06/06/24 17:18 50 MLS/HR Ursodiol 300 mg TID GT 06/06/24 22:00 Examination Gen - conjunctival pallor present , scleral icterus present, no cyanosis, no clubbing, no LAD, bilateral 2+ pitting pedal edema Skin - Patients skin is warm and dry, multiple spider angiomata skin on the chest, erythematous rash seen in the groin on both the sides, b/l lower extremity 2+ pitting edema HEENT - normocephalic, atraumatic, moist mucous membranes. Neck - no LAD, no JV distention Pulmonary - decreased breath sounds in the right lower lung, left basilar crackles, no wheezing, no stridor. cardiovascular - variable S1,S2 heard, no added sounds, no murmurs heard. capillary refill normal <2 secs. GI - soft abdomen. no hepatospleenomegaly. Bowel Sounds normoactive Neurological - patient was delirious, responds to verbal commands able to maintain eye contact and responds laboratory and microbiology Laboratory Tests 06/06/24 05:26 06/05/24 10:36 Test 06/06/24 05:26 Range/Units Serum Glucose 179 H 74-106 mg/dL Microbiology Date/Time Source Procedure Growth Status 06/04/24 20:35 Blood Blood Culture - Preliminary NO GROWTH AFTER 24 HOURS OF INCUBATION. Resulted 05/23/24 16:00 Sputum Gram Stain - Final Complete 05/23/24 16:00 Respiratory Culture - Final Staphylococcus haemolyticus Presumptive Erickson albicans Complete 05/23/24 12:30 Urine - [place] Urine Culture - Final Complete 05/13/24 14:00 Nose MRSA Screen - Final Complete Problem List/Assessment/Plan Problem List/Assessment/Plan Neurological # Acute metabolic encephalopathy likely hepatic encephalopathy/toxic drug- induced/anoxic - head CT 05/07/24 showed no acute intracranial hemorrhage, midline shift or mass effect - urine drug screen at admission positive for opiates and amphetamines - on lactulose Respiratory # Acute hypoxemic/hypercarbic respiratory failure # bilateral lower lobe pneumonia likely due to Gram+/-bacteria # bilateral pleural effusion # pulmonary edema with right-sided pleural effusion - on oxygen via nasal cannula at 4 L/min - ABG reviewed today - respiratory acidosis - chest x-ray shows bilateral pulmonary edema with blunting of the right CP angle - albuterol and ipratropium med nebs q.8 hours Cardiovascular # Septic shock likely d/t UTI vs pneumonia, resolved # new onset atrial fibrillation with RVR, resolved currently in sinus rhythm # NSTEMI type 2 likely due to demand supply mismatch - Echo shows LVEF 60% with concentric LVH, right atrial enlargement, right ventricular enlargement - on vasopressor support with norepinephrine, maintaining MAP > 65mmhg - flecainide 100 mg b.i.d. for AFib - [id number] Vasc- 1, has-bled 2 , currently anticoagulation is held, with the patient SOB positive and history of GI bleeding Gastrointestinal # decompensated liver cirrhosis # history of hepatitis-C infection # history of heavy alcohol use # ascites # hepatic encephalopathy - noted increase in bilirubin - low albumin, elevated PT INR, thrombocytopenia - lactulose 30 mL q.8h - Protonix 40 mg IV b.i.d. - methylprednisolone 20 mg q.d. - lasix - started on pureed diet with NG tube in place Nephrology # acute kidney injury likely hemodynamically mediated due to shock,+ contrast likely ATN # hypernatremia - BUN and creatinine, trending up - free water deficit 6 L - free water 300 mL via NG tube q.6 hours - D5W at 50ml/hr Infectious disease # septic shock likely due to UTI versus pneumonia versus ?SBP # candidal infection in the groin - initial urine culture showed growth of multidrug resistant Klebsiella ESBL, on meropenem - initial blood cultures, respiratory sputum cultures negative - repeat blood cultures showed growth of staph. epidermidis, patient on vanco - nystatin powder q.12h for erickson - 05/31 - blood cultures repeated again, show no growth after 24 hours Endocrine # Insulin dependent Diabetes mellitus with hyperglycemia - On ISS - goal blood glucose 140-180 mg/dL Polysubstance Use Acute opiate/methamphetamine intoxication DVT prophylaxis: Sequential compression device PUD prophylaxis: Protonix PICC line in the left forearm- placed on 05/13/2024 Mcduffie's catheter- placed on 05/07/2024 Patient was extubated on 05/29. Weaned off norepinephrine. Patient's guarded prognosis explained to the in detail and the need for BiPAP going forward if the patient's CO2 keeps rising and since he is altered he may end up aspirating. understood and wants the patient to be put on BiPAP if needed and chest compressions but no intubation 06/03- downgraded to telemetry after being off vasopressor support for over 24 hours Goals of care discussed with the patient's Lorna about the patient's prognosis .. prognosis guarded Code status- DO NOT INTUBATE time excluding procdures spent: 49 mins Plan discussed with Dr. Amaro Plan discussed with: Spouse, Other (RN ( Summer )) My Orders My Orders Orders - TIERRA GALEAS RESIDENT Procedure Category Date Status Time D5w 5% (Dextrose 5%) PHA 06/06/24 In Process 07:45 Pureed DIET 06/06/24 Transmitted Dinner Dietary Evaluation Review Comments: 1. Per RN, pt is able to drink liquid but unable to manage jello. Will Downgrade his CCHO-60 diet to pureed texture. 2. offer Glucern BID if PO is still poor 3. elevated BUN, f/u and reassess after pt has a GI and nephrology consult. 4. consider clinimix as a form of protein supplementation as pt has very low albumin. Expected Outcomes/Goals: Gradual wt loss, better DM control. Date of Service: Jun 06, 2024 Billing Provider: JUVENAL AMARO MD Common Visit Codes: [id number] INP/OBS CARE(HIGH) Secondary Visit Codes: [id number] CARE PLAN 30 MINUTES TIERRA GALEAS RESIDENT Jun 06, 2024 20:29 JUVENAL AMARO MD Jun 07, 2024 14:58
[2024-06-06] MEDS: URSODIOL 300 MG CAP GT SCH (23:57)
[2024-06-07] VITALS (13 sets, daily range): BP systolic 95–127; BP diastolic 52–83; PULSE 83–97; RESP 16–20; TEMP 97–98.6; O2SAT 94–100
[2024-06-07 09:58] LABS: Basophils # (auto) 0 10 ^3/uL (0-0.2); Eosinophils # (auto) 0 10 ^3/uL (0-0.8); Eosinophils % (auto) 0.1 % (0.0-7.0); INR 1.94 (0.9-1.15); Monocytes # (auto) 0.8 10 ^3/uL (0-1.3); Prothrombin Time 19.3 sec (9.3-11.8)
[2024-06-07 10:04] LABS: Potassium 4.3 mmol/L (3.5-5.1)
[2024-06-07 10:05] LABS: Hematocrit 26.7 % (41.0-53.0); Hemoglobin 7.8 g/dL (13.5-17.5); Lymphocytes # (auto) 0.4 10 ^3/uL (0.4-5.4); Lymphocytes % (auto) 3.3 % (10.0-50.0); Mean Corpuscular Hemoglobin 32.6 pg (28.0-32.0); Mean Corpuscular Hgb Conc. 29.2 g/dL (32.0-36.0); Mean Corpuscular Volume 111.8 fL (80.0-100.0); Monocytes % (auto) 6.6 % (0.0-12.0); Nucleated Red Blood Cells % 0.9 %; Platelet Count (auto) 44 10^3/uL (140-450); Red Blood Cells 2.39 10^6/uL (4.5-5.90); White Blood Cell 12.2 10^3/uL (4.4-10.8)
[2024-06-07 10:07] LABS: Anion Gap 11 (5-15); BUN/Creatinine Ratio 52.7 (10.0-20.0)
[2024-06-07 10:08] LABS: Alanine Aminotransferase 132 U/L (7-40); Albumin 2.7 g/dL (3.2-4.8); Alkaline Phosphatase 218 U/L (46-116); Aspartate Aminotransferase 105 U/L (13-40); Bilirubin, Direct > 15.0 mg/dL (<0.3); Bilirubin, Total > 35.0 mg/dL (0.2-1.0); Calcium 9.3 mg/dL (8.7-10.4); Carbon Dioxide 24 mmol/L (20-31); Chloride 114 mmol/L (98-107); Sodium 149 mmol/L (136-145); Total Protein 4.3 g/dL (5.7-8.2)
[2024-06-07 10:10] LABS: Red Cell Distribution Width 31.3 % (11.8-14.3)
[2024-06-07 10:11] LABS: Blood Urea Nitrogen 109 mg/dL (9-23); Glucose 520 mg/dL (74-106)
[2024-06-07 11:21] LABS: Platelet Estimate Decreased
[2024-06-07 11:25] LABS: Anisocytosis Moderate; Macrocytosis Marked
[2024-06-07 11:26] LABS: Target Cell MODERATE
[2024-06-07] MEDS: ALBUMIN 25% 100 ML IV ONE (12:08)
[2024-06-07] MEDS: IPRATROPIUM BROM 0.5 MG/2.5ML INH SOL NEB SCH (14:29)
[2024-06-07] MEDS: ALBUTEROL SULF 2.5 MG/0.5ML(0.5%) NEB SOLN NEB SCH (14:29)
[2024-06-07] MEDS: InsuLIN REG 1unit/0.01ml Soln (100units/ml) SC ONE (19:30)
[2024-06-07] MEDS: DEXTROSE (50%) 50ML SYRG IV ONE (19:30)
[2024-06-07] MEDS: ACCU-CHEK COMFORT CURVE STRIP VI ONE (19:30)
[2024-06-07] MEDS ORDERED: DEXTROSE (50%) 50ML SYRG IV PRN (19:45)
--- NOTE | 2024-06-07 19:49 | DVHPNRES ---
Progress Note Date Seen: Jun 07, 2024 Resident Creating Document: TIERRA GALEAS RESIDENT Medical Necessity Reason Pt with a Central, PICC or Fol: Yes The following are medically ne: PICC Line, Mcduffie Catheter Reason for mcduffie catheter: Strict I&O Subjective Review of Systems Patient seen and examined at the bedside. - patient has been off vasopressors since 06/02 maintaining a MAP> 60. on midodrine and octreotide - patient is delirious and somnolent, responsiveness to verbal commands - patient did not have any fever - patient was had 2 bowel movements in the last 24 hrs - urine output 2800ml - on pureed diet Objective vital signs Vital Sign Date Time Temp Pulse Resp B/P (MAP) Pulse Ox O2 Delivery O2 Flow Rate FiO2 06/07/24 17:00 98.6 91 16 108/62 (77) 94 98.6 06/07/24 08:00 Nasal Cannula* 2 28 Total Intake and Output 06/06/24 06/06/24 06/07/24 15:00 23:00 07:00 Intake Total 100 ml Output Total 1350 ml Balance -1250 ml medications Current Medications Medications Dose Ordered Sig/Kenisha Route Start Time Stop Time Status Last Admin Dose Admin Sodium Chloride 10 ml Q8HR IV 05/07/24 06:00 06/07/24 14:00 10 ML Ondansetron HCl 4 mg Q4HP PRN IV 05/06/24 22:15 Pantoprazole Sodium 40 mg BID IV 05/08/24 22:00 06/07/24 12:03 40 MG Thiamine HCl 100 mg DAILY IV 05/10/24 10:00 06/07/24 12:04 100 MG Flecainide Acetate 100 mg Q12HR PO 05/09/24 22:00 06/07/24 10:00 100 MG Folic Acid 1 mg DAILY PO 05/11/24 10:00 06/07/24 10:00 1 MG Diagnostic Test (Pha) 1 strip Q6HR 05/10/24 18:00 06/07/24 17:37 1 STRIP Insulin Human Regular FOLLOW SLIDING SCALE Q6HR SC 05/10/24 18:00 06/07/24 17:54 4 UNITS Sodium Chloride 10 ml QSHIFT@ IV 05/13/24 22:00 06/07/24 10:00 10 ML Nystatin 1 applic BID TOP 05/23/24 22:00 06/07/24 10:00 1 APPLIC Octreotide Acetate 100 mcg TID SUBCUT 05/24/24 14:00 06/07/24 14:21 100 MCG Furosemide 20 mg DAILY IV 05/28/24 10:00 06/06/24 10:10 20 MG Methylprednisolone Sodium Succinate 20 mg DAILY IV 05/30/24 10:36 06/07/24 12:04 20 MG Enteral Nutritional Formula 1,000 ml 30ML/HR GT 05/31/24 10:15 06/05/24 21:31 1,000 ML Purified Water 300 ml Q6HR GT 06/02/24 12:00 06/07/24 17:40 300 ML Lactulose 30 ml Q8HR NG 06/02/24 14:00 06/07/24 14:13 30 ML Midodrine 10 mg TID@0600,1200,1800 GT 06/04/24 06:00 06/07/24 17:36 10 MG Ursodiol 300 mg TID GT 06/06/24 22:00 06/07/24 14:12 300 MG Albuterol 2.5 mg Q8HR NEB 06/07/24 14:00 06/07/24 14:29 2.5 MG Ipratropium [place] 0.5 mg Q8HR NEB 06/07/24 14:00 06/07/24 14:29 0.5 MG Diagnostic Test (Pha) 1 strip ACHS 06/07/24 22:00 UNV Insulin Human Regular ACHS SC 06/07/24 22:00 UNV Dextrose 50 ml UD PRN IV 06/07/24 19:45 UNV Examination Gen - conjunctival pallor present , scleral icterus present, no cyanosis, no clubbing, no LAD, bilateral 2+ pitting pedal edema Skin - Patients skin is warm and dry, multiple spider angiomata skin on the chest, erythematous rash seen in the groin on both the sides, b/l lower extremity 2+ pitting edema HEENT - normocephalic, atraumatic, moist mucous membranes. Neck - no LAD, no JV distention Pulmonary - decreased breath sounds in the right lower lung, left basilar crackles, no wheezing, no stridor. cardiovascular - variable S1,S2 heard, no added sounds, no murmurs heard. capillary refill normal <2 secs. GI - soft abdomen. no hepatospleenomegaly. Bowel Sounds normoactive Neurological - patient was delirious, responds to verbal commands able to maintain eye contact and responds laboratory and microbiology Laboratory Tests 06/07/24 09:05 Test 06/07/24 09:05 Range/Units Serum Glucose 520 #*H 74-106 mg/dL Microbiology Date/Time Source Procedure Growth Status 06/04/24 20:35 Blood Blood Culture - Preliminary NO GROWTH AFTER 48 HOURS OF INCUBATION. Resulted 05/23/24 16:00 Sputum Gram Stain - Final Complete 05/23/24 16:00 Respiratory Culture - Final Staphylococcus haemolyticus Presumptive Erickson albicans Complete 05/23/24 12:30 Urine - [place] Urine Culture - Final Complete 05/13/24 14:00 Nose MRSA Screen - Final Complete Problem List/Assessment/Plan Problem List/Assessment/Plan Neurological # Acute metabolic encephalopathy likely hepatic encephalopathy/toxic drug- induced/anoxic - head CT 05/07/24 showed no acute intracranial hemorrhage, midline shift or mass effect - urine drug screen at admission positive for opiates and amphetamines - on lactulose Respiratory # Acute hypoxemic/hypercarbic respiratory failure # bilateral lower lobe pneumonia likely due to Gram+/-bacteria # bilateral pleural effusion # pulmonary edema with right-sided pleural effusion - on oxygen via nasal cannula at 4 L/min - ABG reviewed today - respiratory acidosis - chest x-ray shows bilateral pulmonary edema with blunting of the right CP angle - albuterol and ipratropium med nebs q.8 hours Cardiovascular # Septic shock likely d/t UTI vs pneumonia, resolved # new onset atrial fibrillation with RVR, resolved currently in sinus rhythm # NSTEMI type 2 likely due to demand supply mismatch - Echo shows LVEF 60% with concentric LVH, right atrial enlargement, right ventricular enlargement - on vasopressor support with norepinephrine, maintaining MAP > 65mmhg - flecainide 100 mg b.i.d. for AFib - [id number] Vasc- 1, has-bled 2 , currently anticoagulation is held, with the patient SOB positive and history of GI bleeding Gastrointestinal # decompensated liver cirrhosis # history of hepatitis-C infection # history of heavy alcohol use # ascites # hepatic encephalopathy - noted increase in bilirubin - low albumin, elevated PT INR, thrombocytopenia - lactulose 30 mL q.8h - Protonix 40 mg IV b.i.d. - methylprednisolone 20 mg q.d. - lasix - started on pureed diet with NG tube in place Nephrology # acute kidney injury likely hemodynamically mediated due to shock,+ contrast likely ATN # hypernatremia - BUN and creatinine, trending up - free water deficit 6 L - free water 300 mL via NG tube q.6 hours - D5W at 50ml/hr Infectious disease # septic shock likely due to UTI versus pneumonia versus ?SBP # candidal infection in the groin - initial urine culture showed growth of multidrug resistant Klebsiella ESBL, on meropenem - initial blood cultures, respiratory sputum cultures negative - repeat blood cultures showed growth of staph. epidermidis, patient on vanco - nystatin powder q.12h for erickson - 05/31 - blood cultures repeated again, show no growth after 24 hours Endocrine # Insulin dependent Diabetes mellitus with hyperglycemia - On ISS - goal blood glucose 140-180 mg/dL Polysubstance Use Acute opiate/methamphetamine intoxication Diet: pureed with NG in place DVT prophylaxis: Sequential compression device PUD prophylaxis: Protonix PICC line in the left forearm- placed on 05/13/2024 Mcduffie's catheter- placed on 05/07/2024 Patient was extubated on 05/29. Weaned off norepinephrine. Patient's guarded prognosis explained to the in detail and the need for BiPAP going forward if the patient's CO2 keeps rising and since he is altered he may end up aspirating. understood and wants the patient to be put on BiPAP if needed and chest compressions but no intubation 06/03- downgraded to telemetry after being off vasopressor support for over 24 hours Goals of care discussed with the patient's Lorna about the patient's prognosis .. prognosis guarded Code status- DO NOT INTUBATE, time spent in 21 mins time excluding procdures spent: 51 mins Plan discussed with Dr. Amrao Plan discussed with: Spouse (Lorna), Other (RN ( Marques )) My Orders My Orders Orders - TIERRA GALEAS RESIDENT Procedure Category Date Status Time Albuterol Medneb PHA 06/07/24 In Process (Ventolin Medneb) 14:00 Ipratropium Medneb PHA 06/07/24 In Process (Atrovent Medneb) 14:00 Glucose Blood PHA 06/07/24 Logged (Accu-Chek Comfort 22:00 Insulin R (Human) PHA 06/07/24 Logged (Insulin R) 22:00 Dextrose 50% Syringe PHA 06/07/24 Logged 19:45 Complete Blood Count LAB 06/08/24 Verified 04:00 Comprehensive LAB 06/08/24 Verified Metabolic Panel 04:00 D5w 5% (Dextrose 5%) PHA 06/07/24 Verified 19:45 Dietary Evaluation Review Comments: 1. Per RN, pt is able to drink liquid but unable to manage jello. Will Downgrade his CCHO-60 diet to pureed texture. 2. offer Glucern BID if PO is still poor 3. elevated BUN, f/u and reassess after pt has a GI and nephrology consult. 4. consider clinimix as a form of protein supplementation as pt has very low albumin. Expected Outcomes/Goals: Gradual wt loss, better DM control. Date of Service: Jun 07, 2024 Billing Provider: JUVENAL AMARO MD Common Visit Codes: [id number] INP/OBS CARE(HIGH) Secondary Visit Codes: [id number] CARE PLAN 30 MINUTES TIERRA GALEAS RESIDENT Jun 07, 2024 19:49 JUVENAL AMARO MD Jun 08, 2024 14:12
--- NOTE | 2024-06-07 20:29 | DVHPN2 ---
Progress Note - Dictate Date Seen: Jun 07, 2024 Medical Necessity Reason Pt with a Central, PICC or Fol: Yes The following are medically ne: PICC Line, Mcduffie Catheter Reason for mcduffie catheter: Strict I&O Subjective No new complaints, patient remains extubated He is on 2 L nasal cannula saturating well Liver enzymes persistently elevated with a bilirubin upto 37 2 bowel movements recorded, Patient passed swallow evaluation nutritional intake still poor about 25% of his goal Patient continues to be lethargic vital signs Vital Sign Date Time Temp Pulse Resp B/P (MAP) Pulse Ox O2 Delivery O2 Flow Rate FiO2 06/07/24 17:00 98.6 91 16 108/62 (77) 94 98.6 06/07/24 08:00 Nasal Cannula* 2 28 Total Intake and Output 06/06/24 06/06/24 06/07/24 15:00 23:00 07:00 Intake Total 100 ml Output Total 1350 ml Balance -1250 ml medications Current Medications Medications Dose Ordered Sig/Kenisha Route Start Time Stop Time Status Last Admin Dose Admin Sodium Chloride 10 ml Q8HR IV 05/07/24 06:00 06/07/24 14:00 10 ML Ondansetron HCl 4 mg Q4HP PRN IV 05/06/24 22:15 Pantoprazole Sodium 40 mg BID IV 05/08/24 22:00 06/07/24 12:03 40 MG Thiamine HCl 100 mg DAILY IV 05/10/24 10:00 06/07/24 12:04 100 MG Flecainide Acetate 100 mg Q12HR PO 05/09/24 22:00 06/07/24 10:00 100 MG Folic Acid 1 mg DAILY PO 05/11/24 10:00 06/07/24 10:00 1 MG Sodium Chloride 10 ml QSHIFT@10,22 IV 05/13/24 22:00 06/07/24 10:00 10 ML Nystatin 1 applic BID TOP 05/23/24 22:00 06/07/24 10:00 1 APPLIC Octreotide Acetate 100 mcg TID SUBCUT 05/24/24 14:00 06/07/24 14:21 100 MCG Furosemide 20 mg DAILY IV 05/28/24 10:00 06/06/24 10:10 20 MG Methylprednisolone Sodium Succinate 20 mg DAILY IV 05/30/24 10:36 06/07/24 12:04 20 MG Enteral Nutritional Formula 1,000 ml 30ML/HR GT 05/31/24 10:15 06/05/24 21:31 1,000 ML Purified Water 300 ml Q6HR GT 06/02/24 12:00 06/07/24 17:40 300 ML Lactulose 30 ml Q8HR NG 06/02/24 14:00 06/07/24 14:13 30 ML Midodrine 10 mg TID@0600,1200,1800 GT 06/04/24 06:00 06/07/24 17:36 10 MG Ursodiol 300 mg TID GT 06/06/24 22:00 06/07/24 14:12 300 MG Albuterol 2.5 mg Q8HR NEB 06/07/24 14:00 06/07/24 14:29 2.5 MG Ipratropium [place] 0.5 mg Q8HR NEB 06/07/24 14:00 06/07/24 14:29 0.5 MG Diagnostic Test (Pha) 1 strip ACHS 06/07/24 22:00 Insulin Human Regular ACHS SC 06/07/24 22:00 Dextrose 50 ml UD PRN IV 06/07/24 19:45 objective General: Extubated but still fairly lethargic and unresponsive HEENT: NC/AT EOMI dry mucous membranes Heart: Tachycardic regular rhythm Abdomen: Soft nontender nondistended Extremity: No clubbing cyanosis or edema laboratory and microbiology Laboratory Tests 06/07/24 09:05 Test 06/07/24 09:05 Range/Units Serum Glucose 520 #*H 74-106 mg/dL Problems(with codes): (1) Jaundice (2) Aspiration pneumonia (3) MRSA (methicillin resistant Staphylococcus aureus) septicemia (4) Hepatitis C (5) Liver failure (6) Cirrhosis (7) Ascites (8) Pulmonary vascular congestion (9) Generalized weakness (10) Hepatic encephalopathy (11) Altered mental status (12) Transaminitis Prognosis Plan Consider getting a repeat imaging possibly an MRI with MRCP to rule out any CBD pathology or any malignancy that could explain his worsening jaundice Continue assisted feedings Check tumor markers Consider discontinuing his IV steroids Prognosis remains guarded and condition is poor His is supportive and is hopeful for his recovering Dietary Evaluation Review Comments: 1. Per RN, pt is able to drink liquid but unable to manage jello. Will Downgrade his CCHO-60 diet to pureed texture. 2. offer Glucern BID if PO is still poor 3. elevated BUN, f/u and reassess after pt has a GI and nephrology consult. 4. consider clinimix as a form of protein supplementation as pt has very low albumin. Expected Outcomes/Goals: Gradual wt loss, better DM control. Plan discussed with: Patient PAULINA BAINS MD Jun 07, 2024 20:29
[2024-06-07] MEDS: ACCU-CHEK COMFORT CURVE STRIP VI SCH (22:00)
[2024-06-07] MEDS: InsuLIN REG 1unit/0.01ml Soln (100units/ml) SC SCH (23:18)
[2024-06-08] VITALS (14 sets, daily range): BP systolic 75–129; BP diastolic 47–82; PULSE 75–100; RESP 16–20; TEMP 97.5–98.5; O2SAT 91–98
[2024-06-08] MEDS: D5W 5% 500 ML IV ONE
[2024-06-08 10:29] LABS: Basophils # (auto) 0 10 ^3/uL (0-0.2); Basophils % (auto) 0.1 % (0.0-2.0); Eosinophils # (auto) 0.1 10 ^3/uL (0-0.8); Hematocrit 27.6 % (41.0-53.0); Hemoglobin 8.2 g/dL (13.5-17.5); Lymphocytes # (auto) 0.3 10 ^3/uL (0.4-5.4); Lymphocytes % (auto) 3.7 % (10.0-50.0); Monocytes # (auto) 0.6 10 ^3/uL (0-1.3)
[2024-06-08 10:31] LABS: Potassium 4.5 mmol/L (3.5-5.1)
[2024-06-08 10:32] LABS: Anion Gap 12 (5-15); BUN/Creatinine Ratio 52.3 (10.0-20.0); Eosinophils % (auto) 1.5 % (0.0-7.0); Mean Corpuscular Hemoglobin 32.8 pg (28.0-32.0); Mean Corpuscular Hgb Conc. 29.7 g/dL (32.0-36.0); Mean Corpuscular Volume 110.4 fL (80.0-100.0); Monocytes % (auto) 7.2 % (0.0-12.0); Neutrophils # (auto) 7.2 10 ^3/uL (1.6-8.6); Neutrophils % (auto) 87.5 % (37.0-80.0); Platelet Count (auto) 52 10^3/uL (140-450); White Blood Cell 8.2 10^3/uL (4.4-10.8)
[2024-06-08 10:35] LABS: Alanine Aminotransferase 136 U/L (7-40); Albumin 2.8 g/dL (3.2-4.8); Alkaline Phosphatase 213 U/L (46-116); Aspartate Aminotransferase 83 U/L (13-40); Carbon Dioxide 26 mmol/L (20-31); Chloride 124 mmol/L (98-107); Glucose 210 mg/dL (74-106); Total Protein 4.3 g/dL (5.7-8.2)
[2024-06-08 10:37] LABS: Blood Urea Nitrogen 104 mg/dL (9-23); Red Cell Distribution Width 31.8 % (11.8-14.3); Sodium 162 mmol/L (136-145)
[2024-06-08 10:40] LABS: Hepatitis B Core Total AB Negative (Negative)
[2024-06-08 10:44] LABS: Bilirubin, Total 36.5 mg/dL (0.2-1.0)
[2024-06-08 10:54] LABS: Hepatitis A Ab IgM Negative; Hepatitis A Total Antibody Positive (Negative)
[2024-06-08 10:55] LABS: Hepatitis B Core IgM Negative (Negative); Hepatitis B Surface Antibody Negative (Negative); Hepatitis B Surface Antigen Negative (Negative)
[2024-06-08 10:56] LABS: Anisocytosis Marked; Macrocytosis Marked; Ovalocytes FEW; Platelet Estimate Decreased
[2024-06-08 10:57] LABS: Tear Drop Cells FEW
[2024-06-08 10:58] LABS: Hepatitis C Antibody Reactive (Negative)
[2024-06-08] MEDS: D5W 5% 1,000 ML IV ONE (11:15)
[2024-06-08 12:54] LABS: Potassium 4.3 mmol/L (3.5-5.1)
[2024-06-08 12:57] LABS: Anion Gap 12 (5-15)
[2024-06-08 13:08] LABS: Chloride 125 mmol/L (98-107)
[2024-06-08 13:09] LABS: Calcium 9.8 mg/dL (8.7-10.4); Carbon Dioxide 25 mmol/L (20-31)
[2024-06-08 13:10] LABS: Sodium 162 mmol/L (136-145)
[2024-06-08 13:22] LABS: BUN/Creatinine Ratio 50.8 (10.0-20.0)
[2024-06-08 13:23] LABS: Blood Urea Nitrogen 101 mg/dL (9-23); Glucose 176 mg/dL (74-106)
[2024-06-08] MEDS: ONDANSETRON HCL 4 MG/2 ML VIAL IV PRN (16:10)
[2024-06-08] MEDS ORDERED: D5W 5% 1,000 ML IV SCH (16:30)
--- NOTE | 2024-06-08 17:57 | DVHPN2 ---
Progress Note - Dictate Date Seen: Jun 08, 2024 Medical Necessity Reason Pt with a Central, PICC or Fol: Yes The following are medically ne: PICC Line, Mcduffie Catheter Reason for mcduffie catheter: Strict I&O Subjective No new complaints, patient remains extubated He is on 2 L nasal cannula saturating well Liver enzymes persistently elevated with a bilirubin upto 36.5 2 bowel movements recorded, Patient passed swallow evaluation; patient tolerating pureed diet Patient continues to be lethargic vital signs Vital Sign Date Time Temp Pulse Resp B/P (MAP) Pulse Ox O2 Delivery O2 Flow Rate FiO2 06/08/24 14:52 90 20 98 06/08/24 14:45 Nasal Cannula* 2 28 06/08/24 13:17 97.5 88/48 (61) 97.5 Total Intake and Output 06/07/24 06/07/24 06/08/24 15:00 23:00 07:00 Intake Total 100 ml Output Total 2000 ml 800 ml 950 ml Balance -2000 ml -800 ml -850 ml medications Current Medications Medications Dose Ordered Sig/Kenisha Route Start Time Stop Time Status Last Admin Dose Admin Sodium Chloride 10 ml Q8HR IV 05/07/24 06:00 06/08/24 14:44 10 ML Ondansetron HCl 4 mg Q4HP PRN IV 05/06/24 22:15 06/08/24 16:10 4 MG Pantoprazole Sodium 40 mg BID IV 05/08/24 22:00 06/08/24 09:54 40 MG Thiamine HCl 100 mg DAILY IV 05/10/24 10:00 06/08/24 09:54 100 MG Flecainide Acetate 100 mg Q12HR PO 05/09/24 22:00 06/08/24 09:53 100 MG Folic Acid 1 mg DAILY PO 05/11/24 10:00 06/08/24 09:53 1 MG Sodium Chloride 10 ml QSHIFT@10, IV 05/13/24 22:00 06/08/24 10:16 10 ML Nystatin 1 applic BID TOP 05/23/24 22:00 06/08/24 10:03 1 APPLIC Furosemide 20 mg DAILY IV 05/28/24 10:00 06/08/24 10:01 20 MG Enteral Nutritional Formula 1,000 ml 30ML/HR GT 05/31/24 10:15 06/05/24 21:31 1,000 ML Purified Water 300 ml Q6HR GT 06/02/24 12:00 06/08/24 17:06 300 ML Lactulose 30 ml Q8HR NG 06/02/24 14:00 06/08/24 14:43 30 ML Midodrine 10 mg TID@0600,1200,1800 GT 06/04/24 06:00 06/08/24 16:54 10 MG Ursodiol 300 mg TID GT 06/06/24 22:00 06/08/24 14:43 300 MG Albuterol 2.5 mg Q8HR NEB 06/07/24 14:00 06/08/24 14:44 2.5 MG Ipratropium [place] 0.5 mg Q8HR NEB 06/07/24 14:00 06/08/24 14:44 0.5 MG Diagnostic Test (Pha) 1 strip ACHS 06/07/24 22:00 06/08/24 17:06 1 STRIP Insulin Human Regular ACHS SC 06/07/24 22:00 06/08/24 12:34 2 UNITS Dextrose 50 ml UD PRN IV 06/07/24 19:45 Dextrose 1,000 ml @ 50 mls/hr Q20H IV 06/08/24 16:30 objective General: Extubated but still fairly lethargic and unresponsive HEENT: NC/AT EOMI dry mucous membranes Heart: Tachycardic regular rhythm Abdomen: Soft nontender nondistended Extremity: No clubbing cyanosis or edema laboratory and microbiology Laboratory Tests 06/08/24 12:19 06/08/24 09:17 Test 06/08/24 12:19 Range/Units Serum Glucose 176 H 74-106 mg/dL Problems(with codes): (1) Jaundice (2) Aspiration pneumonia (3) MRSA (methicillin resistant Staphylococcus aureus) septicemia (4) Hepatitis C (5) Liver failure (6) Cirrhosis (7) Ascites (8) Pulmonary vascular congestion (9) Anemia, unspecified (10) Urinary tract infection (11) Generalized weakness (12) Hepatic encephalopathy (13) Transaminitis (14) Drug abuse Prognosis Plan If the patient is able to tolerate pureed diet we can discontinue his NG tube Patient should be up to 45 angle during and after feedings Patient needs assistance with all his feedings Discharge planning with home health care or consideration for hospice, apparently the is refusing MRI of the abdomen if the patient is able to undergo that to rule out any malignancy like pancreatic or liver or biliary malignancy Continue to monitor blood tests and supportive care ; awaiting tumor markers Prognosis remains guarded Dietary Evaluation Review Comments: 1. Per RN, pt is able to drink liquid but unable to manage jello. Will Downgrade his CCHO-60 diet to pureed texture. 2. offer Glucern BID if PO is still poor 3. elevated BUN, f/u and reassess after pt has a GI and nephrology consult. 4. consider clinimix as a form of protein supplementation as pt has very low albumin. Expected Outcomes/Goals: Gradual wt loss, better DM control. Plan discussed with: Other (Dr Cortez) PAULINA BAINS MD Jun 08, 2024 17:57
--- NOTE | 2024-06-08 18:43 | DVHPNRES ---
Progress Note Date Seen: Jun 08, 2024 Resident Creating Document: TIERRA GALEAS RESIDENT Medical Necessity Reason Pt with a Central, PICC or Fol: Yes The following are medically ne: PICC Line, Mcduffie Catheter Reason for mcduffie catheter: Strict I&O Subjective Review of Systems Patient seen and examined at the bedside. - patient has been off vasopressors since 06/02 maintaining a MAP> 60. on midodrine - patient is delirious and somnolent, responsiveness to verbal commands - patient did not have any fever - patient was had 2 bowel movements in the last 24 hrs Objective vital signs Vital Sign Date Time Temp Pulse Resp B/P (MAP) Pulse Ox O2 Delivery O2 Flow Rate FiO2 06/08/24 17:00 97.6 100 16 99/52 (68) 92 97.6 06/08/24 14:45 Nasal Cannula* 2 28 Total Intake and Output 06/07/24 06/07/24 06/08/24 15:00 23:00 07:00 Intake Total 100 ml Output Total 2000 ml 800 ml 950 ml Balance -2000 ml -800 ml -850 ml medications Current Medications Medications Dose Ordered Sig/Kenisha Route Start Time Stop Time Status Last Admin Dose Admin Sodium Chloride 10 ml Q8HR IV 05/07/24 06:00 06/08/24 14:44 10 ML Ondansetron HCl 4 mg Q4HP PRN IV 05/06/24 22:15 06/08/24 16:10 4 MG Pantoprazole Sodium 40 mg BID IV 05/08/24 22:00 06/08/24 09:54 40 MG Thiamine HCl 100 mg DAILY IV 05/10/24 10:00 06/08/24 09:54 100 MG Flecainide Acetate 100 mg Q12HR PO 05/09/24 22:00 06/08/24 09:53 100 MG Folic Acid 1 mg DAILY PO 05/11/24 10:00 06/08/24 09:53 1 MG Sodium Chloride 10 ml QSHIFT@ IV 05/13/24 22:00 06/08/24 10:16 10 ML Nystatin 1 applic BID TOP 05/23/24 22:00 06/08/24 10:03 1 APPLIC Furosemide 20 mg DAILY IV 05/28/24 10:00 06/08/24 10:01 20 MG Enteral Nutritional Formula 1,000 ml 30ML/HR GT 05/31/24 10:15 06/05/24 21:31 1,000 ML Purified Water 300 ml Q6HR GT 06/02/24 12:00 06/08/24 17:06 300 ML Lactulose 30 ml Q8HR NG 06/02/24 14:00 06/08/24 14:43 30 ML Midodrine 10 mg TID@0600,1200,1800 GT 06/04/24 06:00 06/08/24 16:54 10 MG Ursodiol 300 mg TID GT 06/06/24 22:00 06/08/24 14:43 300 MG Albuterol 2.5 mg Q8HR NEB 06/07/24 14:00 06/08/24 14:44 2.5 MG Ipratropium [place] 0.5 mg Q8HR NEB 06/07/24 14:00 06/08/24 14:44 0.5 MG Diagnostic Test (Pha) 1 strip ACHS 06/07/24 22:00 06/08/24 17:06 1 STRIP Insulin Human Regular ACHS SC 06/07/24 22:00 06/08/24 12:34 2 UNITS Dextrose 50 ml UD PRN IV 06/07/24 19:45 Dextrose 1,000 ml @ 50 mls/hr Q20H IV 06/08/24 16:30 Examination Gen - conjunctival pallor present , scleral icterus present, no cyanosis, no clubbing, no LAD, bilateral 2+ pitting pedal edema Skin - Patients skin is warm and dry, multiple spider angiomata skin on the chest, erythematous rash seen in the groin on both the sides, b/l lower extremity 2+ pitting edema HEENT - normocephalic, atraumatic, moist mucous membranes. Neck - no LAD, no JV distention Pulmonary - decreased breath sounds in the right lower lung, left basilar crackles, no wheezing, no stridor. cardiovascular - variable S1,S2 heard, no added sounds, no murmurs heard. capillary refill normal <2 secs. GI - soft abdomen. no hepatospleenomegaly. Bowel Sounds normoactive Neurological - patient was delirious, responds to verbal commands able to maintain eye contact and responds laboratory and microbiology Laboratory Tests 06/08/24 12:19 06/08/24 09:17 Test 06/08/24 12:19 Range/Units Serum Glucose 176 H 74-106 mg/dL Microbiology Date/Time Source Procedure Growth Status 06/04/24 20:35 Blood Blood Culture - Preliminary NO GROWTH AFTER 72 HOURS OF INCUBATION. Resulted 05/23/24 16:00 Sputum Gram Stain - Final Complete 05/23/24 16:00 Respiratory Culture - Final Staphylococcus haemolyticus Presumptive [place] albicans Complete 05/23/24 12:30 Urine - [place] Urine Culture - Final Complete 05/13/24 14:00 Nose MRSA Screen - Final Complete Problem List/Assessment/Plan Problem List/Assessment/Plan Neurological # Acute metabolic encephalopathy likely hepatic encephalopathy/toxic drug- induced/anoxic - head CT 05/07/24 showed no acute intracranial hemorrhage, midline shift or mass effect - urine drug screen at admission positive for opiates and amphetamines - on lactulose Respiratory # Acute hypoxemic/hypercarbic respiratory failure # bilateral lower lobe pneumonia likely due to Gram+/-bacteria # bilateral pleural effusion # pulmonary edema with right-sided pleural effusion - on oxygen via nasal cannula at 4 L/min - ABG reviewed - chest x-ray shows bilateral pulmonary edema with blunting of the right CP angle - albuterol and ipratropium med nebs q.8 hours Cardiovascular # Septic shock likely d/t UTI vs pneumonia, resolved # new onset atrial fibrillation with RVR, resolved currently in sinus rhythm # NSTEMI type 2 likely due to demand supply mismatch - Echo shows LVEF 60% with concentric LVH, right atrial enlargement, right ventricular enlargement - on vasopressor support with norepinephrine, maintaining MAP > 65mmhg - flecainide 100 mg b.i.d. for AFib - [id number] Vasc- 1, has-bled 2 , currently anticoagulation is held, with the patient SOB positive and history of GI bleeding Gastrointestinal # decompensated liver cirrhosis # history of hepatitis-C infection # history of heavy alcohol use # ascites # hepatic encephalopathy - noted increase in bilirubin - low albumin, elevated PT INR, thrombocytopenia - lactulose 30 mL q.8h - Protonix 40 mg IV b.i.d. - lasix - started on pureed diet with NG tube in place Nephrology # acute kidney injury likely hemodynamically mediated due to shock,+ contrast likely ATN # hypernatremia - BUN and creatinine, trending up - free water deficit 6 L - free water 300 mL via NG tube q.6 hours - D5W at 50ml/hr Infectious disease # septic shock likely due to UTI versus pneumonia versus ?SBP # candidal infection in the groin - initial urine culture showed growth of multidrug resistant Klebsiella ESBL, on meropenem - initial blood cultures, respiratory sputum cultures negative - repeat blood cultures showed growth of staph. epidermidis, patient on vanco - nystatin powder q.12h for erickson - 05/31 - blood cultures repeated again, show no growth after 24 hours Endocrine # Insulin dependent Diabetes mellitus with hyperglycemia - On ISS - goal blood glucose 140-180 mg/dL Polysubstance Use Acute opiate/methamphetamine intoxication Diet: pureed with NG in place DVT prophylaxis: Sequential compression device PUD prophylaxis: Protonix PICC line in the left forearm- placed on 05/13/2024 Mcduffie's catheter- placed on 05/07/2024 Patient was extubated on 05/29. Weaned off norepinephrine. Patient's guarded prognosis explained to the in detail and the need for BiPAP going forward if the patient's CO2 keeps rising and since he is altered he may end up aspirating. understood and wants the patient to be put on BiPAP if needed and chest compressions but no intubation 06/03- downgraded to telemetry after being off vasopressor support for over 24 hours Goals of care discussed with the patient's Lorna about the patient's prognosis .. prognosis guarded Code status- DO NOT INTUBATE time spent 21 mins time excluding procdures spent: 49 mins Plan discussed with Dr. Amaro Plan discussed with: Spouse, Other (RN ( Jeannine )) My Orders My Orders Orders - TIERRA GALEAS RESIDENT Procedure Category Date Status Time Glucose Blood PHA 06/07/24 In Process (Accu-Chek Comfort 22:00 Insulin R (Human) PHA 06/07/24 In Process (Insulin R) 22:00 Dextrose 50% Syringe PHA 06/07/24 In Process 19:45 D5w 5% (Dextrose 5%) PHA 06/08/24 In Process 16:30 Complete Blood Count LAB 06/09/24 Verified 04:00 Comprehensive LAB 06/09/24 Verified Metabolic Panel 04:00 Abg W/ Co-Ox RT 06/09/24 Transmitted 04:00 Dietary Evaluation Review Comments: 1. Per RN, pt is able to drink liquid but unable to manage jello. Will Downgrade his CCHO-60 diet to pureed texture. 2. offer Glucern BID if PO is still poor 3. elevated BUN, f/u and reassess after pt has a GI and nephrology consult. 4. consider clinimix as a form of protein supplementation as pt has very low albumin. Expected Outcomes/Goals: Gradual wt loss, better DM control. Date of Service: Jun 08, 2024 Billing Provider: JUVENAL AMARO MD Common Visit Codes: [id number] INP/OBS CARE(HIGH) Secondary Visit Codes: [id number] CARE PLAN 30 MINUTES TIERRA GALEAS RESIDENT Jun 08, 2024 18:43 JUVENAL AMARO MD Jun 11, 2024 12:35
--- NOTE | 2024-06-08 20:48 | DVHPN2 ---
Progress Note - Dictate Date Seen: Jun 08, 2024 Medical Necessity Reason Pt with a Central, PICC or Fol: Yes The following are medically ne: PICC Line, Mcduffie Catheter Reason for mcduffie catheter: Strict I&O Subjective Mr. Linder is a 63 years old gentleman with a history of diabetes, liver cirrhosis, hepatitis-C infection, cancer, the patient was brought to the [facility] on 05/06/2024 with a chief complaint of overdose. I have seen and examined the patient was, discussed with his nurse. He was not doing well. Blood pressure low, he was to be transferred to [facility]. He was awake, respond to verbal stimuli, but does not follow or talk He has hypothermia Blood culture, 05/23/2024: Gram-positive cocci in clusters Urine culture, 05/07/2024: Klebsiella pneumoniae Stool Occult blood, 06/09/2024: Positive UDS, 05/07/2024: Opiates, amphetamine Plasma alcohol, 05/06/2024: <3 Urinalysis, 05/07/2024: WBC: 193, urine leukocyte esterase: 2+ ABG, 05/07/2024: Combined respiratory and metabolic acidosis, 05/13/2024: Metabolic acidosis, 05/15/2024: Respiratory acidosis, 05/19/2024: Respiratory acidosis, 05/25/2024: Respiratory acidosis WBC/HB/PLT/MCV, 05/25/2024: 19.5/8.4/100/93.8 06/08/2024: 8.2/18/2/52/110.4 PT/INR/PTT, 05/16/2024: 19.4/1.96, 05/20/2024: 17.2/1.71, : 19.3/1.94 Na, 05/07/2024: 142, 05/11/2024: 155, 05/13/2024: 145, 05/30/24: 151, 06/02/2024: 150, 06/05/24: 158, :149, 06/08/24: 162 BUN/CR, 05/25/2024: 73/1.95, 06/03/24: 83/1.81 06/08/2024: 101/1.99 GFR, 10/20/2024: 38 TBI/AST/ALT/AP, 05/25/2024: 25.2/133/76/292, 06/03/2024: 32.6/84/109/242, 06/08/2024: 36.5/83/136/213 NH3, 05/07/24: 84, 05/12/2024: 30, 05/13/24: 82, 05/16/2024: 43, 05/24/2024: 37 EEG, 05/25/24: Remarkably abnormal EEG Chest x-ray, 05/07/2024: 1. Interval placement of enteric tube with terminus just distal to the expected level of the GEJ. 2. Interval increase in left lung base pulmonary markings suggestive of possible developing infiltrate. 3. Stable diffuse prominence of the pulmonary vasculature. CT head, 05/07/2024: No acute intracranial hemorrhage, midline shift or mass effect. If symptoms persist, further evaluation with MRI is recommended CVA, neck, 05/13/2024: No hemodynamically significant stenosis, aneurysm or dissection involving the major intracranial and neck vessels. The suggested fistulous connection noted on ultrasound between the distal left common carotid artery and left internal jugular vein is not definitely visualized. No contrast extravasation is noted. CT head, 05/25/2024: No acute intracranial process vital signs Vital Sign Date Time Temp Pulse Resp B/P (MAP) Pulse Ox O2 Delivery O2 Flow Rate FiO2 06/08/24 19:51 75 20 96 Nasal Cannula* 2 28 06/08/24 17:00 97.6 99/52 (68) 97.6 Total Intake and Output 06/07/24 06/07/24 06/08/24 15:00 23:00 07:00 Intake Total 100 ml Output Total 2000 ml 800 ml 950 ml Balance -2000 ml -800 ml -850 ml medications Current Medications Medications Dose Ordered Sig/Kenisha Route Start Time Stop Time Status Last Admin Dose Admin Sodium Chloride 10 ml Q8HR IV 05/07/24 06:00 06/08/24 14:44 10 ML Ondansetron HCl 4 mg Q4HP PRN IV 05/06/24 22:15 06/08/24 16:10 4 MG Pantoprazole Sodium 40 mg BID IV 05/08/24 22:00 06/08/24 09:54 40 MG Thiamine HCl 100 mg DAILY IV 05/10/24 10:00 06/08/24 09:54 100 MG Flecainide Acetate 100 mg Q12HR PO 05/09/24 22:00 06/08/24 09:53 100 MG Folic Acid 1 mg DAILY PO 05/11/24 10:00 06/08/24 09:53 1 MG Sodium Chloride 10 ml QSHIFT@10,22 IV 05/13/24 22:00 06/08/24 10:16 10 ML Nystatin 1 applic BID TOP 05/23/24 22:00 06/08/24 10:03 1 APPLIC Furosemide 20 mg DAILY IV 05/28/24 10:00 06/08/24 10:01 20 MG Enteral Nutritional Formula 1,000 ml 30ML/HR GT 05/31/24 10:15 06/05/24 21:31 1,000 ML Purified Water 300 ml Q6HR GT 06/02/24 12:00 06/08/24 17:06 300 ML Lactulose 30 ml Q8HR NG 06/02/24 14:00 06/08/24 14:43 30 ML Midodrine 10 mg TID@0600,1200,1800 GT 06/04/24 06:00 06/08/24 16:54 10 MG Ursodiol 300 mg TID GT 06/06/24 22:00 06/08/24 14:43 300 MG Albuterol 2.5 mg Q8HR NEB 06/07/24 14:00 06/08/24 14:44 2.5 MG Ipratropium [place] 0.5 mg Q8HR NEB 06/07/24 14:00 06/08/24 14:44 0.5 MG Diagnostic Test (Pha) 1 strip ACHS 06/07/24 22:00 06/08/24 17:06 1 STRIP Insulin Human Regular ACHS SC 06/07/24 22:00 06/08/24 12:34 2 UNITS Dextrose 50 ml UD PRN IV 06/07/24 19:45 Dextrose 1,000 ml @ 150 mls/hr Q6H40M IV 06/08/24 20:45 UNV objective The patient is well-nourished and well-developed with no distress MENTAL STATUS: Subjective CRANIAL NERVES: Pupils are equally round and reactive.There are conjugated eye movement. No signs of facial weakness. Sensorimotor examined in bilateral transplant distribution is unremarkable. SENSATION: Responses to touch MOTOR: Normal tone in the upper and lower extremity. Normal muscle bulk. No fasciculations. I do not see movement in the extremities REFLEXES: Deep tendon reflexes are symmetrical. CEREBELLAR/COORDINATION: Deferred GAIT/STATION: deferred. laboratory and microbiology Laboratory Tests 06/08/24 12:19 06/08/24 09:17 Test 06/08/24 12:19 Range/Units Serum Glucose 176 H 74-106 mg/dL Problem List Altered mental status Metabolic encephalopathy Hepatic encephalopathy Hypoxic encephalopathy Sepsis, septic shock Liver failure Liver cirrhosis Coagulopathy Jaundice Acute kidney failure Urinary tract infection Pneumonia Assessment/Plan Monitoring Supportive treatment Transferred to [facility] Oxygen Thiamine supplementation GI prophylaxis/Protonix Pulmonology on case Nephrology on case GI on case More recommendation per clinical course This medical document was created using an electronic medical record system with [employer] dictation system. Although this document has been carefully reviewed, there may still be some phonetic and typographical errors. These areas are purely typographical due to imperfections of the software programs, and do not reflect any compromise in the patient's medical care Prognosis Critical Dietary Evaluation Review Comments: 1. Per RN, pt is able to drink liquid but unable to manage jello. Will Downgrade his CCHO-60 diet to pureed texture. 2. offer Glucern BID if PO is still poor 3. elevated BUN, f/u and reassess after pt has a GI and nephrology consult. 4. consider clinimix as a form of protein supplementation as pt has very low albumin. Expected Outcomes/Goals: Gradual wt loss, better DM control. Plan discussed with: Other Critical Care Time(min): 35 GETACHEW BLACKWOOD MD Jun 08, 2024 20:48
[2024-06-08] MEDS: D5W 5% 1,000 ML IV SCH (21:33)
[2024-06-08 22:00] LABS: Potassium 4.5 mmol/L (3.5-5.1)
[2024-06-08 22:10] LABS: Anion Gap 13 (5-15); BUN/Creatinine Ratio 45.9 (10.0-20.0)
[2024-06-08 22:12] LABS: Calcium 9.7 mg/dL (8.7-10.4); Carbon Dioxide 22 mmol/L (20-31); Chloride 125 mmol/L (98-107); Glucose 82 mg/dL (74-106); Sodium 160 mmol/L (136-145)
[2024-06-08 22:14] LABS: Blood Urea Nitrogen 100 mg/dL (9-23)
[2024-06-09 01:00] VITALS: BP 107/85; PULSE 75; RESP 18; TEMP 96.9; O2SAT 97
[2024-06-09 05:00] VITALS: BP 113/93; PULSE 70; RESP 20; TEMP 97.2; O2SAT 99
[2024-06-09 06:04] VITALS: PULSE 89; RESP 18; O2SAT 98
[2024-06-09 06:16] VITALS: PULSE 73; RESP 18; O2SAT 92
[2024-06-09 07:07] LABS: AFP Serum Tumor Marker <1.8 ng/mL (0.0-8.4); Carbohydrate Antigen 19-9 134 U/mL (0-35)
[2024-06-09 07:36] LABS: Calcium 9.5 mg/dL (8.7-10.4)
[2024-06-09 07:45] LABS: Alanine Aminotransferase 656 U/L (7-40); Albumin 2.4 g/dL (3.2-4.8); Alkaline Phosphatase 207 U/L (46-116); Anion Gap 22.00001 (5-15); BUN/Creatinine Ratio 37.2 (10.0-20.0); Bilirubin, Total 31.6 mg/dL (0.2-1.0); Chloride 121 mmol/L (98-107); Glucose 93 mg/dL (74-106); Sodium 153 mmol/L (136-145)
[2024-06-09 07:51] LABS: Potassium 6.9 mmol/L (3.5-5.1)
[2024-06-09 07:52] LABS: Blood Urea Nitrogen 87 mg/dL (9-23); Carbon Dioxide < 10 mmol/L (20-31)
[2024-06-09 08:00] VITALS: PULSE 55; RESP 14; O2SAT 85
[2024-06-09] MEDS ORDERED: NOREPINEPHRINE 8 MG/250ML KIT 250 ML IV ONE (08:09)
[2024-06-09] MEDS ORDERED: InsuLIN REG 1unit/0.01ml Soln (100units/ml) ONE (08:12)
[2024-06-09] MEDS ORDERED: InsuLIN REG 1unit/0.01ml Soln (100units/ml) IV ONE (08:15)
[2024-06-09 08:29] LABS: Eosinophils # (auto) 0.1 10 ^3/uL (0-0.8); Eosinophils % (auto) 0.4 % (0.0-7.0); Mean Corpuscular Hemoglobin 32.4 pg (28.0-32.0); Red Blood Cells 2.67 10^6/uL (4.5-5.90)
[2024-06-09 08:30] LABS: Basophils # (auto) 0 10 ^3/uL (0-0.2); Basophils % (auto) 0.3 % (0.0-2.0); Hematocrit 32.3 % (41.0-53.0); Hemoglobin 8.7 g/dL (13.5-17.5); Lymphocytes # (auto) 0.7 10 ^3/uL (0.4-5.4); Lymphocytes % (auto) 4.3 % (10.0-50.0); Mean Corpuscular Hgb Conc. 26.8 g/dL (32.0-36.0); Mean Corpuscular Volume 120.9 fL (80.0-100.0); Monocytes # (auto) 0.7 10 ^3/uL (0-1.3); Monocytes % (auto) 4.2 % (0.0-12.0); Neutrophils # (auto) 15.3 10 ^3/uL (1.6-8.6); Neutrophils % (auto) 90.8 % (37.0-80.0); Platelet Count (auto) 70 10^3/uL (140-450); White Blood Cell 16.8 10^3/uL (4.4-10.8)
[2024-06-09 08:56] LABS: Nucleated Red Blood Cells % 4.8 %; Red Cell Distribution Width 33.4 % (11.8-14.3)
--- NOTE | 2024-06-09 11:18 | RESUS ---
CODE BLUE ASSESSSMENT History of Events History of Events: SEE EMR FOR CARE/TREATMENT PROVIDED DURING ADMISSION. [facility] CALLED AT 0803 FOR BRADYCARDIA, AGONAL BREATHING WITH SPO2 READING 50'S-70'S AND HYPOTENSION. RT AT BEDSIDE TO BAG PATIENT ALONG WITH [facility] TEAM. BLOOD GLUCOSE 65. 1 AMP D50 GIVEN, ATROPINE 1 MG IV GIVEN FOR HR 40'S WITH BP 61/39. LEVOPHED DRIP ORDERED AND STARTED. RESIDENTS AWARE OF POTASSIUM LAB 6.9. 10 UNITS REGULAR INSULIN IV ORDERED AND GIVEN. 2 AMPS OF HCO3 AND 1 AMP CALCIUM CHLORIDE ORDERED AND GIVEN. LEVOPHED MAX RATE WITH DR ORDER AT 30 MCG/MIN AT 0813. BP AT 0814 80/59. PATIENT THEN WENT BRADYCARDIC WITH HR IN 20'S. ATROPINE 1 MG ORDERED AGAIN AND GIVEN THEN CPR INITIATATED AT 0815 FOR ASYSTOLE. MODIFIED CODE WITH NO INTUBATION. Initial Information Date: Jun 09, 2024 Time: 08:15 [place] of Arrest: [place] Witnessed: Yes CPR started initial time: 08:15 CPR started by whom: Hospital Staff Type of arrest: Cardiac, Respiratory, Adult, Witnessed Spontaneous Respirations: No Pulse Present: No Monitoring: ECG, Pulse Oximetry, Telemetry Crash Cart Opened and Supplies: Yes Airway Ventilation Breathing at Onset: Agonal O2 Sat by Pulse Oximetry: 72 Oxygen Delivery Method: Ambu-Bag Artificial Ventilation: Bag/Mask Comments: DNI Circulation Circulation #1: Time: 08:15 Pulse Rate (adult): 0 Blood Pressure Systolic: 0 Blood Pressure Diastolic: 0 Circulation Comment: ASYSTOLE Circulation #2: Time: 08:18 Pulse Rate (adult): 0 Blood Pressure Systolic: 0 Blood Pressure Diastolic: 0 Circulation Comment: ASYSTOLE Circulation #3: Time: 08:20 Pulse Rate (adult): 0 Blood Pressure Systolic: 0 Blood Pressure Diastolic: 0 Circulation Comment: ASYSTOLE Circulation #4: Time: 08:22 Pulse Rate (adult): 0 Blood Pressure Systolic: 0 Blood Pressure Diastolic: 0 Circulation Comment: ASYSTOLE Circulation #5: Time: 08:24 Pulse Rate (adult): 0 Blood Pressure Systolic: 0 Blood Pressure Diastolic: 0 Circulation Comment: ASYSTOLE Circulation #6: Time: 08:26 Pulse Rate (adult): 0 Blood Pressure Systolic: 0 Blood Pressure Diastolic: 0 Circulation Comment: ASYSTOLE Medications & Response Medications and Responses #1: Medication Time: 08:15 ADULT Medications Given ADULT: Epinephrine 1 mg Route of Administration: IV Medications and Responses #2: Medication Time: 08:18 ADULT Medications Given ADULT: Calcium Chloride 10 mL Route of Administration: IV Medications and Responses #3: Medication Time: 08:19 ADULT Medications Given ADULT: Epinephrine 1 mg Route of Administration: IV Medications and Responses #4: Medication Time: 08:22 ADULT Medications Given ADULT: Sodium Bacarbinate 50 meq Route of Administration: IV Medications and Responses #5: Medication Time: 08:23 ADULT Medications Given ADULT: Epinephrine 1 mg Route of Administration: IV Procedure - Junior Catheter Comment: 65, RECHECK 123 AT 0824 Nurses Notes Brian Coma Scale Eye Opening: None (1) [place] Coma Scale Verbal: None (1) Brian Coma Scale Motor: None (1) Pupil Reaction: Non Reactive EKG Rhythm: Asystole Time Code Ended Time Code Ended: 08:27 Post Arrest Status: Outcome of code: Unsuccessful Patient pronounced by: DR JAIMES-RESIDENT Time patient pronounced: 08:27 Family notified: No (ATTEMPTED TO CALL FAMILY MULTIPLE TIMES SINCE [facility] WAS CALLED) Attending called: Yes Code Team Present: DR JAIMES RESIDENT, DR GOMEZ RESIDENT, DR CABRERA RESIDENT, JAMI DENIS AGRICULTURAL EQUIPMENT SALESPERSON, VALENTE Hunter RNWIRELESS TECHNICIAN, CIARA TRINIDAD RN, ESHA Santillan RN ICU CHARGE, ARIANNA Vásquez RN ICU RESOURCE, GENE Aguirre RN PRIMARY, MARLON RN, JUAN RN, LÓPEZ PENAN, JANA CCT, JANA RN ORIENTEE, JADYN RT, GALLO RT. Date of Service: Jun 09, 2024 Billing Provider: JUVENAL AMARO MD Common Visit Codes: PROCEDURE ONLY Procedure Codes: [id number] CODE Valente Puga Jun 09, 2024 11:18 JUVENAL AMARO MD Jun 11, 2024 12:39
[2024-06-09 12:02] LABS: Aspartate Aminotransferase 1509 U/L (13-40)
[2024-06-09] MEDS ORDERED: ATROPINE SULF 1 MG/10ml SYR IM ONE (12:04)
[2024-06-09] MEDS ORDERED: CALCIUM CHLOR(10%) 100MG/ML 10ML SYRINGE IV ONE (12:04)
--- NOTE | 2024-06-09 17:39 | DVHDS2 ---
Summary Date of Admission May 06, 2024 at 23:12 Date and Time of Expiration: Jun 09, 2024 08:27 Reason for Admission: Altered mental status Drug abuse Elevated troponin I level Transaminitis Hepatic encephalopathy Urinary tract infection Anemia, unspecified Generalized weakness Pulmonary vascular congestion Wounds: left forearm skin tear 0.5x0.5cm pink scar tissue L heel display 1x3.5cm intact, dry scab from resolving blister Labs/Diagnostic Data: Laboratory Results Test 06/09/24 08:11 06/09/24 08:06 06/09/24 06:24 06/08/24 09:17 White Blood Count 16.8 10^3/uL (4.4-10.8) Red Blood Count 2.67 10^6/uL (4.5-5.90) Hemoglobin 8.7 g/dL (13.5-17.5) Hematocrit 32.3 % (41.0-53.0) Mean Corpuscular Volume 120.9 fL (80.0-100.0) Mean Corpuscular Hemoglobin 32.4 pg (28.0-32.0) Mean Corpuscular Hemoglobin Concent 26.8 g/dL (32.0-36.0) Red Cell Distribution Width 33.4 % (11.8-14.3) Platelet Count 70 10^3/uL (140-450) Mean Platelet Volume 15.1 fL (6.9-10.8) Neutrophils (%) (Auto) 90.8 % (37.0-80.0) Lymphocytes (%) (Auto) 4.3 % (10.0-50.0) Monocytes (%) (Auto) 4.2 % (0.0-12.0) Eosinophils (%) (Auto) 0.4 % (0.0-7.0) Basophils (%) (Auto) 0.3 % (0.0-2.0) Neutrophils # (Auto) 15.3 10 ^3/uL (1.6-8.6) Lymphocytes # (Auto) 0.7 10 ^3/uL (0.4-5.4) Monocytes # (Auto) 0.7 10 ^3/uL (0-1.3) Eosinophils # (Auto) 0.1 10 ^3/uL (0-0.8) Basophils # (Auto) 0 10 ^3/uL (0-0.2) Nucleated Red Blood Cells 4.8 % POC Glucose 65 mg/dl (70-106) Sodium Level 153 mmol/L (136-145) Potassium Level 6.9 mmol/L (3.5-5.1) Chloride Level 121 mmol/L (98-107) Carbon Dioxide Level < 10 mmol/L (20-31) Anion Gap 22.76495 (5-15) Blood Urea Nitrogen 87 mg/dL (9-23) Creatinine 2.34 mg/dL (0.700-1.30) Glomerular Filtration Rate Calc 31 mL/min (>90) BUN/Creatinine Ratio 37.2 (10.0-20.0) Serum Glucose 93 mg/dL (74-106) Calcium Level 9.5 mg/dL (8.7-10.4) Total Bilirubin 31.6 mg/dL (0.2-1.0) Aspartate Amino Transferase (AST) 1509 U/L (13-40) Alanine Aminotransferase (ALT) 656 U/L (7-40) Alkaline Phosphatase 207 U/L (46-116) Total Protein 4.0 g/dL (5.7-8.2) Albumin 2.4 g/dL (3.2-4.8) Platelet Estimate Decreased Poikilocytosis (manual) Moderate Anisocytosis (manual) Marked Macrocytosis Marked Tear Drop Cells Few Ovalocytes Few [place] Cells Moderate Schistocytes Few Tumor Marker Alpha Fetoprotein <1.8 ng/mL (0.0-8.4) CA 19-9 Antigen 134 U/mL (0-35) Test 06/07/24 10:25 06/07/24 09:05 06/02/24 05:06 06/01/24 11:35 Ammonia 18 umol/L (11-32) Target Cells Moderate Prothrombin Time 19.3 sec (9.3-11.8) Prothrombin Time INR 1.94 (0.9-1.15) Direct Bilirubin > 15.0 mg/dL (<0.3) Hepatitis A IgM Antibody Negative Hepatitis A Antibody Total Positive (Negative) Hepatitis B Surface Antigen Negative (Negative) Hepatitis B Surface Antibody Negative (Negative) Hepatitis B Core Total Antibody Negative (Negative) Hepatitis B Core IgM Antibody Negative (Negative) Hepatitis C Antibody Reactive (Negative) Differential Total Cells Counted 100.0 (100) Neutrophils % (Manual) 93 (37.0-80.0) Band Neutrophils % (Manual) 0 Lymphocytes % (Manual) 4 (10.0-50.0) Monocytes % (Manual) 3 (0-12) Eosinophils % (Manual) 0 (0-7) Basophils % (Manual) 0 (0.0-2.0) Metamyelocytes % (manual) 0 Myelocytes % (Manual) 0 Promyelocytes % (Manual) 0 Blast Cells % (Manual) 0 Reactive Lymphocytes 0 Smudge Cells 9 /100 WBC Clumped Platelets None Random Vancomycin Level 14.9 ug/mL (5-10) Blood Gas Specimen Type Arterial Blood Gas Sample Site Right radial Blood Gas Patient Temperature 37.0 Arterial Blood Date Drawn [id number] Arterial Blood pH 7.380 (7.350-7.450) Arterial Blood Partial Pressure CO2 46.0 mmHg (35.0-48.0) Arterial Blood Partial Pressure O2 76.0 mmHg (83.0-108.0) Arterial Blood HCO3 26.6 mmol/L (21.0-28.0) Arterial Blood Oxygen Saturation 92.9 % (94.0-98.0) Arterial Blood Base Excess 1.2 mmol/L (-2.0-3.0) Arterial Blood Oxyhemoglobin 90.4 % (94.0-98.0) Arterial Blood Carboxyhemoglobin 2.3 % (0.5-1.5) Arterial Blood Methemoglobin 0.4 % (0.0-1.5) Mike Test Yes Blood Gas Total Hemoglobin 8.60 g/dL (13.5-17.5) Blood Gas Modality Nasal cannula FiO2 % 28.0 Test 05/30/24 14:04 05/29/24 08:41 05/28/24 06:50 05/28/24 03:59 Blood Gas Liter Flow 2.00 Blood Gas Tidal Volume 500.0 Blood Gas Pressure Support 8 Blood Gas PEEP or CPAP 5.0 Blood Gas Set Respiration Rate 22.0 Large Platelets Few Magnesium Level 2.8 mg/dL (1.6-2.6) Test 05/25/24 06:42 05/25/24 03:20 05/23/24 12:30 05/23/24 09:18 Blood Gas Spontaneous Rate 20 Blood Gas Inspiratory Pressure 21.0 Bl Gas Inspiratory/Expiratory Ratio 1:2.6 Specimen Drawn By kang dickinson Phosphorus Level 5.6 mg/dL (2.4-5.1) Urine Color Dark-yellow (Yellow) Urine Clarity Clear (Clear) Urine pH 5.5 (5.0-9.0) Urine Specific [place] 1.010 (1.001-1.035) Urine Protein Negative (Negative) Urine Ketones Negative (Negative) Urine Blood 2+ /uL (Negative) Urine Nitrite Negative (Negative) Urine Bilirubin 2+ (Negative) Urine Urobilinogen Normal mg/dL (Negative) Urine Leukocyte Esterase Negative /uL (Negative) Urine RBC 26 /hpf (0 - 3) Urine Microscopic WBC 2 /HPF (0-3) Urine Squamous Epithelial Cells Few /hpf (<5) Urine Bacteria Few /hpf (None Seen) Urine Hyaline Casts Few /lpf (0 - 2) Urine Yeast (Budding) Occasional /hpf (None Urine Creatinine 26.09 mg/dL (30.0-125.0) Urine Protein/Creatinine Ratio 0.94 Urine Sodium 54 mmol/L (40-220) Urine Glucose Normal mg/dL (Normal) Urine Total Protein 24.5 mg/dL (1-14) Lactic Acid Level 1.3 mmol/L (0.4-2.0) Test 05/22/24 03:23 05/21/24 03:24 05/20/24 03:20 05/15/24 09:52 Hypochromasia (manual) Slight Triglycerides Level 166 mg/dL (< 150) Stomatocytes Few Blood Gas Critical Value Read Back Yes Blood Gas Notified Whom breanna Fragoso md Blood Gas Notified Time [id number] Blood Gas Notified By Sav lundberg rrt Test 05/14/24 00:18 05/11/24 03:10 05/09/24 16:25 05/08/24 08:45 Troponin I High Sensitivity 22 ng/L (</=54) B-Type Natriuretic Peptide 360.94 pg/mL (0-100) Stool Occult Blood Positive (Negative) Stool Occult Blood Sample #3 (Negative) Thyroid Stimulating Hormone (TSH) 0.59 uIU/mL (0.55-4.78) Test 05/07/24 01:30 05/06/24 17:20 Urine Mucus Few (None Seen) Urine Opiates Screen Pos (NEGATIVE) Urine Fentanyl Screen Neg (NEGATIVE) Urine Barbiturates Screen Neg (NEGATIVE) Urine Phencyclidine Screen Neg (NEGATIVE) Urine Amphetamines Screen Pos (NEGATIVE) Urine Benzodiazepines Screen Neg (NEGATIVE) Urine Cocaine Screen Neg (NEGATIVE) Urine Cannabinoids Screen Neg (NEGATIVE) Plasma/Serum Blood Alcohol < 3.0 mg/dL (<10) Other Laboratory Tests 06/09/24 08:11 06/09/24 06:24 Brief Hx & Hospital Course: HPI Patient is a 63-year-old male with a past medical history of liver cirrhosis likely secondary to hep C, liver shunt, CHF, diabetes mellitus, prostate cancer, history of lower GI bleed status post blood transfusion was brought to the ER with a chief complaint of drug overdose. Information gathered from reviewing the chart and talking with the patient's family, as per he was found gurgling and unresponsive in a car, possible overdose of morphine following which EMS were called. EMS gave the patient Narcan and he woke up but was unable to recall what happened. Urine drug screen in the ER was positive for amphetamine and opiates. Past medical history: Liver cirrhosis likely secondary to hep C, liver shunt, CHF, type 2 diabetes mellitus, prostate cancer status post radiotherapy, history of lower GI bleed s/p blood transfusions Past surgical history: Hernia repair, tips, live knee surgery Social history: Patient lives with the , history of smoking less than 1 pack per day, reported alcohol and illicit drug usage Home medications: Lasix 20 mg b.i.d., gabapentin 300 mg q.8 hours, insulin glargine 15 units SC b.i.d., spironolactone 50 mg daily Hospital course Patient upon arrival was obtunded and was on oxygen support. While in the ER patient went into atrial fibrillation rapid ventricular response following which she was given diltiazem. Patient while in the hospital had altered mental status, sepsis likely due to UTI/pneumonia with the underlying liver cirrhosis had to be put on mechanical ventilation and put on vasopressor support. Patient was transferred to the ICU for further care. In ICU patient was treated with meropenem for Klebsiella pneumoniae ESBL multidrug resistant and also coverage for suspected aspiration pneumonia in the right lower lung, diuresis with the Lasix, rifaximin and lactulose for hepatic encephalopathy, Patient's blood cultures were done twice and did not show any growth after 5 days, respiratory sputum cultures did not show any growth. Patient's mental status remained obtunded even after turning of the sedation, had vasopressor requirements therefore he could not be extubated. Eventually the patient's vasopressor requirements decreased, after discussion with the 5 and the sister with a decided to change the code status of the patient to do not intubate following which the patient was extubated on 05/29. Patient still remained obtunded after extubation responsive to verbal commands but was somnolent and could not maintain eye contact for more than 10 seconds, we kept him in NPO who with NG tube for nutrition. While in the hospital, during he was intubated and after X 2 vision patient's bilirubin levels kept increasing, GI was on board and the patient was on ursodiol and methylprednisolone. After a week of extubation patient's mental status improved slightly, swallow evaluation was done which put the patient on pureed diet which he was tolerating well. He continued to have good urine output until 06/08 when urine output decreased. On 06/09 at 8:03am rapid response was called because of low oxygen saturation and patient was started on bag and mask ventilation. His blood pressure kept dropping and at 8:15 am code blue had to be called. Patient could not be resuscitated and was pronounced at 8:27 a.m. multiple attempts were made to call the family but they did not answer and advised meals were left. Later when the came, the sequence of events were explained to her. Consults/Reason for consult Nephrology consultation for NELIDA on CKD Gastroenterology consultation for decompensated liver cirrhosis Neurology consultation for encephalopathy Final Diagnosis/Problems List # Acute metabolic encephalopathy likely hepatic encephalopathy/toxic drug-induced/anoxic # Acute hypoxemic/hypercarbic respiratory failure # bilateral lower lobe pneumonia likely due to Gram+/-bacteria # bilateral pleural effusion # septic shock likely due to UTI versus pneumonia versus ?SBP # candidal infection in the groin # decompensated liver cirrhosis # history of hepatitis-C infection # history of heavy alcohol use # ascites # hepatic encephalopathy # Septic shock likely d/t UTI vs pneumonia, resolved # new onset atrial fibrillation with RVR, resolved currently in sinus rhythm # NSTEMI type 2 likely due to demand supply mismatch # pulmonary edema with right-sided pleural effusion # acute kidney injury likely hemodynamically mediated due to shock,+ contrast likely ATN # hypernatremia # Insulin dependent Diabetes mellitus with hyperglycemia # Acute opiate/methamphetamine intoxication Discharge Disposition: at Hospital JHAJTIERRA Ang RESIDENT Jun 09, 2024 17:39
== END 2024-06-09 12:05 | DRG 720 ==
LOC: EDBD 15:54 → ER 15:54 → OVERFLOW 23:12 → ICU WEST 05-08 23:31 → TELE-EAST 05-12 17:15 → ICU WEST 05-13 13:23 → ICU CENTRL 06-01 16:15 → TELE-WESTW 06-03 18:26
PROVIDERS: ADMIT Internal Medicine; ATTEND Internal Medicine
PROC: 5A0935A Assistance with Respiratory Ventilation, Less than 24 Consecutive Hours, High Flow/Velocity Cannula (ICD-10-PCS; 2024-05-07)
PROC: 05HA33Z Insertion of Infusion Device into Left Brachial Vein, Percutaneous Approach (ICD-10-PCS; 2024-05-08)
PROC: B54NZZA Ultrasonography of Left Upper Extremity Veins, Guidance (ICD-10-PCS; 2024-05-08)
PROC: 5A0935A Assistance with Respiratory Ventilation, Less than 24 Consecutive Hours, High Flow/Velocity Cannula (ICD-10-PCS; 2024-05-09)
PROC: 05HN33Z Insertion of Infusion Device into Left Internal Jugular Vein, Percutaneous Approach (ICD-10-PCS; principal; 2024-05-13)
PROC: 5A1955Z Respiratory Ventilation, Greater than 96 Consecutive Hours (ICD-10-PCS; 2024-05-13)
PROC: B544ZZA Ultrasonography of Left Jugular Veins, Guidance (ICD-10-PCS; 2024-05-13)
PROC: 0BH17EZ Insertion of Endotracheal Airway into Trachea, Via Natural or Artificial Opening (ICD-10-PCS; 2024-05-13)
PROC: 02HV33Z Insertion of Infusion Device into Superior Vena Cava, Percutaneous Approach (ICD-10-PCS; 2024-05-13)
PROC: B548ZZA Ultrasonography of Superior Vena Cava, Guidance (ICD-10-PCS; 2024-05-13)
PROC: 5A1935Z Respiratory Ventilation, Less than 24 Consecutive Hours (ICD-10-PCS; 2024-05-29)
PROC: 5A1935Z Respiratory Ventilation, Less than 24 Consecutive Hours (ICD-10-PCS; 2024-05-30)
PROC: 5A12012 Performance of Cardiac Output, Single, Manual (ICD-10-PCS; 2024-06-09)
DX: A41.9 Sepsis, unspecified organism (principal); J96.01 Acute respiratory failure with hypoxia; N17.0 Acute kidney failure with tubular necrosis; K76.7 Hepatorenal syndrome; J69.0 Pneumonitis due to inhalation of food and vomit; R65.21 Severe sepsis with septic shock; G92.8 Other toxic encephalopathy; D61.818 Other pancytopenia; B37.89 Other sites of candidiasis; J15.9 Unspecified bacterial pneumonia; J15.69 Pneumonia due to other Gram-negative bacteria; R18.8 Other ascites; E87.21 Acute metabolic acidosis; I21.A1 Myocardial infarction type 2; K76.82 Hepatic encephalopathy; Z66 Do not resuscitate; E87.20 Acidosis, unspecified; D69.6 Thrombocytopenia, unspecified; K72.90 Hepatic failure, unspecified without coma; J96.02 Acute respiratory failure with hypercapnia; T43.655A Adverse effect of methamphetamines, initial encounter; D63.8 Anemia in other chronic diseases classified elsewhere; B19.20 Unspecified viral hepatitis C without hepatic coma; E11.22 Type 2 diabetes mellitus with diabetic chronic kidney disease; K74.60 Unspecified cirrhosis of liver; N18.9 Chronic kidney disease, unspecified; N39.0 Urinary tract infection, site not specified; E66.01 Morbid (severe) obesity due to excess calories; B96.1 Klebsiella pneumoniae [K. pneumoniae] as the cause of diseases classified elsewhere; Z68.36 Body mass index [BMI] 36.0-36.9, adult; B96.20 Unspecified Escherichia coli [E. coli] as the cause of diseases classified elsewhere; D68.9 Coagulation defect, unspecified; D73.1 Hypersplenism; F15.129 Other stimulant abuse with intoxication, unspecified; I48.91 Unspecified atrial fibrillation; Z16.12 Extended spectrum beta lactamase (ESBL) resistance; Z16.24 Resistance to multiple antibiotics; E87.1 Hypo-osmolality and hyponatremia; K65.2 Spontaneous bacterial peritonitis; E87.0 Hyperosmolality and hypernatremia; D75.89 Other specified diseases of blood and blood-forming organs; E11.65 Type 2 diabetes mellitus with hyperglycemia; E87.4 Mixed disorder of acid-base balance; G93.1 Anoxic brain damage, not elsewhere classified; I50.32 Chronic diastolic (congestive) heart failure; Z79.4 Long term (current) use of insulin; Z99.81 Dependence on supplemental oxygen; Z85.46 Personal history of malignant neoplasm of prostate; Z79.84 Long term (current) use of oral hypoglycemic drugs; Z79.899 Other long term (current) drug therapy; Z86.74 Personal history of sudden cardiac arrest; Y92.89 Other specified places as the place of occurrence of the external cause
CPT/HCPCS: 36415; 36569; 36600; 70450; 70496; 70498; 71045; 71250; 74018; 74176; 76604; 76937; 80048; 80053; 80074; 80076; 80202; 80307; 80320; 81001; 82105; 82140; 82270; 82565; 82570; 82805; 82962; 83605; 83735; 83880; 84100; 84132; 84156; 84295; 84300; 84443; 84478; 84484; 85007; 85025; 85027; 85610; 86301; 86704; 86706; 86708; 86803; 86850; 86900; 86901; 87040; 87070; 87077; 87081; 87086; 87088; 87186; 87205; 87340; 92610; 93005; 93306; 93886; 94002; 94003; 94640; 95819; 96372; G0378; J0714; J1335; J1815; J2185; J2248; J2250; J2405; J2470; J2543; J3480; J7060; P9047